=== PATIENT | male | born 2000 | race Caucasian/White ===

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

== ENCOUNTER 2018-01-22 04:09 | Emergency (ER) | payer MEDICAID ==
[2018-01-22] MEDS ORDERED: SODIUM CHLORIDE 0.9% 1,000 ML IV ONE ×3 (04:22→09:06)
--- NOTE | 2018-01-22 04:42 | ED Physician Documentation ---
PD HPI ABD PAIN - Stated complaint Stated Complaint: ABDOMINAL PAIN - Chief complaint Chief Complaint: Abd Pain - History obtained from History obtained from: Patient - History of Present Illness Timing - onset: Today Timing - details: Abrupt onset, Still present Quality: Cramping, Aching, Sharp Location: Epigastric Associated symptoms: Nausea, Vomiting. No: Hematemesis, Diarrhea, Constipation Similar symptoms before: Work up / diagnostics, Treatment Recently seen: Emergency Dept, Admitted - Additional information Additional information: Patient is a 17 year old male with a history of diabetes who is presenting to the emergency department for abdominal pain. Patient states that the pain started just before coming in. Patient denies fevers but states that he also has nausea and vomiting. Patient has been in the emergency department and admitted multiple times with similar complaints. All of the diagnostics have been within normal limits including gastric emptying. At the last discharge it was recommended that a care plan be made for the patient and discontinue the use of opiate pain medication. Review of Systems Constitutional: denies: Fever, Chills Eyes: reports: Reviewed and negative Ears: reports: Reviewed and negative Nose: reports: Reviewed and negative Throat: reports: Reviewed and negative Cardiac: denies: Chest pain / pressure Respiratory: denies: Dyspnea, Cough GI: reports: Abdominal Pain, Nausea, Vomiting. denies: Constipation, Diarrhea : reports: Reviewed and negative Skin: denies: Rash, Lesions Neurologic: reports: Generalized weakness. denies: Focal weakness Immunocompromised: denies: Immunocompromised PD PAST MEDICAL HISTORY - Past Medical History Cardiovascular: None Respiratory: None Neuro: Peripheral neuropathy Endocrine/Autoimmune: Type 1 diabetes GI: Other : None HEENT: None Psych: None Musculoskeletal: None Derm: None - Past Surgical History Past Surgical History: No - Present Medications Home Medications: Ambulatory Orders Medication Instructions Recorded Confirmed Insulin Aspart [Novolog] 0 - 12 unit SUBQ TIDWM 04/15/15 12/29/17 Insulin Glargine,Hum.rec.anlog 40 unit SQ DAILY PM 12/30/17 12/30/17 [Basaglar Kwikpen U-100] Ondansetron Odt [Zofran] 4 mg TL Q6H PRN #20 tablet 01/22/18 - Allergies Allergies/Adverse Reactions: Allergies Allergy/AdvReac Type Severity Reaction Status Date / Time No Known Drug Allergies Allergy Verified 04/28/18 04:16 - Social History Does the pt smoke?: No Smoking Status: Never smoker Does the pt drink ETOH?: Yes Does the pt have substance abuse?: No - Immunizations Immunizations are current?: Yes - POLST Patient has POLST: No POLST Status: Full Code PD ED PE NORMAL - General General: Alert and oriented X 3 - HEENT HEENT: Atraumatic - Neck Neck: Supple, no meningeal sign - Respiratory Respiratory: No respiratory distress - Derm Derm: Normal color - Extremities Extremities: No deformity - Neuro 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 PD ED PE EXPANDED - General General: Alert, In Pain - HEENT HEENT: Dry mucous membranes - Cardiac Cardiac: Tachy - Abdomen Abdomen: Tender to palpation, Epigastric. No: Rebound, Guarding Results - Vitals Vitals: Vital Signs - 24 hr 01/22/18 01/22/18 01/22/18 04:14 05:30 06:22 Temperature 36.5 C Heart Rate 133 H 118 H 127 H Respiratory 17 12 15 Rate Blood Pressure 136/87 H 132/94 H 135/94 H O2 Saturation 100 100 100 01/22/18 01/22/18 08:35 11:34 Temperature 36.6 C Heart Rate 126 H 128 H Respiratory 15 15 Rate Blood Pressure 140/93 H 134/90 H O2 Saturation 100 100 Oxygen O2 Source Room air - Labs Labs: Laboratory Tests 01/22/18 01/22/18 01/22/18 04:20 04:30 04:30 WBC 5.8 RBC 4.91 Hgb 15.1 Hct 43.1 MCV 87.8 MCH 30.7 MCHC 34.9 RDW 12.3 Plt Count 301 MPV 7.9 Neut # 4.6 Lymph # 1.1 L Blanco # 0.1 Eos # 0.0 Baso # 0.0 Absolute Nucleated RBC 0.00 Nucleated RBC % 0.0 VBG pH VBG pCO2 VBG pO2 VBG HCO3 VBG Total CO2 VBG O2 Saturation VBG Base Excess Sodium 139 Potassium 2.8 L Chloride 100 L Carbon Dioxide 21 Anion Gap 18.0 H BUN 14 Creatinine 0.5 L Estimated GFR (MDRD) 214 Glucose 258 H POC Whole Bld Glucose 230 H Lactic Acid Calcium 9.8 Phosphorus 2.8 Magnesium 2.2 Total Bilirubin 0.9 AST 16 ALT 16 Alkaline Phosphatase 87 Total Protein 8.6 H Albumin 4.8 Globulin 3.8 Albumin/Globulin Ratio 1.3 Lipase 17 L Serum Ketones NEGATIVE 01/22/18 01/22/18 04:30 05:35 WBC RBC Hgb Hct MCV MCH MCHC RDW Plt Count MPV Neut # Lymph # Blanco # Eos # Baso # Absolute Nucleated RBC Nucleated RBC % VBG pH 7.357 VBG pCO2 34.2 L VBG pO2 53.6 H VBG HCO3 18.8 L VBG Total CO2 19.8 L VBG O2 Saturation 88.9 H VBG Base Excess -5.8 L Sodium Potassium Chloride Carbon Dioxide Anion Gap BUN Creatinine Estimated GFR (MDRD) Glucose POC Whole Bld Glucose Lactic Acid 2.2 Calcium Phosphorus Magnesium Total Bilirubin AST ALT Alkaline Phosphatase Total Protein Albumin Globulin Albumin/Globulin Ratio Lipase Serum Ketones PD MEDICAL DECISION MAKING - ED course Complexity details: reviewed old records, reviewed results, re-evaluated patient , considered differential, d/w patient ED course: Patient was seen and examined at bedside. IV access was gained and labs were drawn. Patient was started on a fluid bolus as well as zofran. Patient's previous records were reviewed and there was a recommendation of no narcotics for the patient. Patient's renal function was within normal limits. patient was treated with toradol, tylenol and bentyl. Patient was found to have hypokalemia and his potassium was replaced both via IV and oral. Patient's ph was within normal limits and he was not making ketones. Patient reported that he was still in pain and was treated with haldol 5mg. Patient responded well to the haldol and his pain resolved. Patient required no further inpatient work up and was stable for discharge with outpatient follow up. Departure - Departure Disposition: Home, Self Care Clinical Impression: Intractable nausea and vomiting, Abdominal pain Condition: Stable Instructions: Abdominal Pain, ED Diet Vomiting Diarrhea Follow-Up: Justina Patel ARNP [Primary Care Provider] - Within 3 Days Prescriptions: Ondansetron Odt [Zofran] 4 mg TL Q6H PRN #20 tablet PRN Reason: Nausea / Vomiting Comments: Your diagnostics were consistent with mild dehyration but no dka. It is important to keep type control of your blood sugars. You have been prescribed zofran for nausea and make sure you stay well hydrated. You should follow up with your doctor wednesday for re-evaluation. Discharge Date/Time: 01/22/18 11:34
[2018-01-22 04:43] LABS: BASOPHILS % (AUTO) 0.5 %; EOSINOPHILS % (AUTO) 0.1 %; HGB - HEMOGLOBIN 15.1 g/dL (14.0-18.0); LYMPHOCYTES # (AUTO) 1.1 10^3/uL (1.5-3.5); LYMPHOCYTES % (AUTO) 18.6 %; MEAN CORPUSCULAR HEMOGLOBIN 30.7 pg (27.0-31.0); MEAN CORPUSCULAR HGB CONC 34.9 g/dL (32.0-36.0); MEAN CORPUSCULAR VOLUME 87.8 fL (80.0-94.0); MEAN PLATELET VOLUME 7.9 fL (7.4-11.4); MONOCYTES # (AUTO) 0.1 10^3/uL (0.0-1.0); NEUTROPHILS # (AUTO) 4.6 10^3/uL (1.5-6.6); NEUTROPHILS % (AUTO) 78.8 %; PLT - PLATELET COUNT 301 10^3/uL (130-450); RED BLOOD COUNT 4.91 10^6/uL (4.70-6.10); RED CELL DISTRIBUTION WIDTH 12.3 % (12.0-15.0); WHITE BLOOD COUNT 5.8 x10^3/uL (4.8-10.8)
[2018-01-22] MEDS ORDERED: ONDANSETRON 4 MG/2 ML VIAL IVP STA (04:50)
[2018-01-22] MEDS ORDERED: ACETAMINOPHEN 500 MG TABLET PO STA (04:51)
[2018-01-22 04:52] LABS: KETONES, SERUM (ACETEST) NEGATIVE (NEGATIVE)
[2018-01-22 04:53] LABS: ALBUMIN 4.8 g/dL (3.2-5.5); ALBUMIN/GLOBULIN RATIO 1.3 (1.0-2.2); ALKALINE PHOSPHATASE 87 IU/L (42-121); ALT ALANINE AMINOTRANSFERASE 16 IU/L (10-60); AST ASPARTATE AMINOTRANSFERASE 16 IU/L (10-42); BILIRUBIN,TOTAL 0.9 mg/dL (0.2-1.0); BUN - BLOOD UREA NITROGEN 14 mg/dL (6-20); CALCIUM 9.8 mg/dL (8.5-10.3); CARBON DIOXIDE - CO2 21 mmol/L (21-32); CHLORIDE 100 mmol/L (101-111); CREATININE 0.5 mg/dL (0.6-1.2); GFR - MDRD 214 (>89); GLUCOSE 258 mg/dL (70-100); LIPASE 17 U/L (22-51); MAGNESIUM 2.2 mg/dL (1.7-2.8); PHOSPHORUS 2.8 mg/dL (2.5-4.6); SODIUM 139 mmol/L (135-145); TOTAL PROTEIN 8.6 g/dL (6.7-8.2)
[2018-01-22] MEDS ORDERED: DICYCLOMINE 10 MG CAPSULE PO STA (04:56)
[2018-01-22] MEDS ORDERED: PANTOPRAZOLE 40 MG VIAL IVP STA (04:56)
[2018-01-22] MEDS ORDERED: KETOROLAC 60 MG/2 ML VIAL IVP STA (04:56)
[2018-01-22] MEDS ORDERED: POTASSIUM CHLOR 10 MEQ/100 ML 10 MEQ/100 ML BAG IV ONE (04:56)
[2018-01-22] MEDS ORDERED: ACETAMINOPHEN 325 MG TABLET PO STA (04:56)
[2018-01-22] MEDS ORDERED: LIDOCAINE VISCOUS 2% 15 ML UDC MM STA ×2 (04:56→09:08)
[2018-01-22] MEDS ORDERED: POTASSIUM CHLORIDE 20 MEQ TABLET PO STA (04:59)
[2018-01-22 05:47] LABS: VBG BASE EXCESS -5.8 mmol/L (-2 - +2); VBG PCO2 34.2 mmHg (41-51); VBG PH 7.357 (7.31-7.41); VBG PO2 53.6 mmHg (25-47); VBG TOTAL CO2 19.8 mmol/L (24-29)
[2018-01-22] MEDS ORDERED: HALOPERIDOL 5 MG/ML VIAL IVP ONE (06:01)
[2018-01-22] MEDS ORDERED: PROCHLORPERAZINE 10 MG/2 ML VIAL IVP STA (09:08)
[2018-01-22] MEDS ORDERED: diphenhydrAMINE INJ 50 MG/ML VIAL IVP STA (09:08)
[2018-01-22] MEDS ORDERED: MAG HYDROX/AL HYDROX/SIMETH 30 ML UDC PO STA (09:08)
[2018-01-22] MEDS ORDERED: ACETAMINOPHEN 1,000 MG/100 ML 100 ML IV STA (09:09)
--- NOTE | 2018-01-22 11:25 | ED Physician Documentation ---
ED Addendum - Addendum Addendum: 01/22/18 11:24 He slept for a couple of hours after sign out time on change of shift. Upon awakening he said he is still having some stomach pain and had increased nausea again. There is no vomiting. He is given doses of medication and getting antiemetic and GI cocktail. His symptoms were lessened. This point will look at trying to discharge him home with prescriptions for antiemetics. He still remains slightly tachycardic but is otherwise feeling better. He had received several antiemetics here in could potentially be having a fast heart rate is a side effect of them separately from his presenting complaint.
[2018-01-22 11:36] VITALS: BP 134/90
== END 2018-01-22 11:34 | disposition home or self-care (01) ==
LOC: ED 04:09
DX: E86.0 Dehydration (principal); R10.13 Epigastric pain; R11.2 Nausea with vomiting, unspecified; E10.42 Type 1 diabetes mellitus with diabetic polyneuropathy; Z79.4 Long term (current) use of insulin
CPT/HCPCS: 36415; 80053; 82009; 82803; 83605; 83690; 83735; 84100; 85025; 96361; 96365; 96367; 96375; 99283; 99284; A9270; J0131; J1200

== ENCOUNTER 2018-01-23 07:51 | Emergency (ER) | payer MEDICAID ==
--- NOTE | 2018-01-23 07:56 | ED Physician Documentation ---
PD HPI NVD - Stated complaint Stated Complaint: N/V - History obtained from History obtained from: Patient - History of Present Illness Timing - onset: How many days ago (few) Timing - duration: Days (few days of symptoms, improved some yesterday with IV fluids and meds in ED and discharged, but not improved consistently.) Timing - details: Gradual onset, Waxing and waning Associated symptoms: Abdominal pain (upper abdomen, steady pain, worse with eating.), Loss of appetite. No: Fever, Chest pain, Hematemesis, Melena, Vaginal bleeding Contributing factors: Diabetes (he says he took his insulin this morning and last night, but did not check sugars, so doesn't know the levels.). No: Sick contact, Bad food Improved by: No: Eating, Vomiting Worsened by: Eating Similar symptoms before: No diagnosis (gastritis, hyperemesis. Had normal gastric emptying study and commonly normal labs/imaging.) Recently seen: Emergency Dept (just yesterday with similar symptoms, given IV fluids and meds with improvement enough for discharge, but then worse again overnight. Upper abd pains and repetitive vomiting.) Review of Systems Constitutional: denies: Fever, Chills, Myalgias Nose: denies: Rhinorrhea / runny nose, Congestion Throat: denies: Sore throat Cardiac: denies: Chest pain / pressure Respiratory: denies: Cough GI: reports: Abdominal Pain (upper), Nausea, Vomiting. denies: Diarrhea, Hematemesis, Bloody / black stool : denies: Dysuria, Frequency Skin: denies: Rash, Lesions PD PAST MEDICAL HISTORY - Past Medical History Cardiovascular: None Respiratory: None Neuro: Peripheral neuropathy Endocrine/Autoimmune: Type 1 diabetes GI: Other : None HEENT: None Psych: None Musculoskeletal: None Derm: None - Past Surgical History Past Surgical History: No - Present Medications Home Medications: Ambulatory Orders Medication Instructions Recorded Confirmed Insulin Aspart [Novolog] 0 - 12 unit SUBQ TIDWM 04/15/15 12/29/17 Insulin Glargine,Hum.rec.anlog 40 unit SQ DAILY PM 12/30/17 12/30/17 [Basaglar Kwikpen U-100] Ondansetron Odt [Zofran] 4 mg TL Q6H PRN #20 tablet 01/22/18 Dicyclomine [Bentyl] 20 mg PO QID PRN #20 capsule 01/23/18 Ondansetron Odt [Zofran] 4 mg TL Q6H PRN #15 tablet 01/23/18 Promethazine Supp [Phenergan Supp] 25 mg [place] Q6H PRN #6 supp 01/23/18 raNITIdine [Zantac] 150 mg PO BID #20 tablet 01/23/18 - Allergies Allergies/Adverse Reactions: Allergies Allergy/AdvReac Type Severity Reaction Status Date / Time No Known Drug Allergies Allergy Verified 01/22/18 04:16 - Social History Does the pt smoke?: No Smoking Status: Never smoker Does the pt drink ETOH?: Yes Does the pt have substance abuse?: No - Immunizations Immunizations are current?: Yes - POLST Patient has POLST: No POLST Status: Full Code PD ED PE NORMAL - General General: Alert and oriented X 3. No: Well developed/nourished (thin and frail) - HEENT HEENT: Ears normal, Pharynx benign. No: Moist mucous membranes - Neck Neck: Supple, no meningeal sign, No adenopathy - Cardiac Cardiac: RRR (tachycardic), No murmur - Respiratory Respiratory: Clear bilaterally - Abdomen Abdomen: Normal bowel sounds, Soft, Non distended, No organomegaly, Other ( tender upper abd with some guarding; no percussion nor rebound tenderness. ) - Male Male : Deferred - Rectal Rectal: Deferred - Back Back: No CVA TTP - Derm Derm: Normal color, Warm and dry - Extremities Extremities: No deformity, No tenderness to palpate, Normal ROM s pain, No edema , No calf tenderness / cord - Neuro 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, No motor deficit, Normal speech Results - Vitals Vitals: Vital Signs - 24 hr 01/23/18 01/23/18 07:58 12:15 Temperature 36.6 C Heart Rate 113 H 92 Respiratory 18 15 Rate Blood Pressure 105/75 108/73 O2 Saturation 100 100 Oxygen O2 Source Room air - Labs Labs: Laboratory Tests 01/23/18 01/23/18 01/23/18 08:01 08:10 08:10 WBC 6.4 RBC 4.23 L Hgb 13.0 L Hct 37.7 L MCV 89.0 MCH 30.8 MCHC 34.6 RDW 12.6 Plt Count 234 MPV 7.7 Neut # 5.4 Lymph # 0.8 L Oliver # 0.2 Eos # 0.0 Baso # 0.0 Absolute Nucleated RBC 0.00 Nucleated RBC % 0.0 VBG pH VBG pCO2 VBG pO2 VBG HCO3 VBG Total CO2 VBG O2 Saturation VBG Base Excess Sodium 137 Potassium 3.6 Chloride 108 Carbon Dioxide 20 L Anion Gap 9.0 BUN 17 Creatinine 0.5 L Estimated GFR (MDRD) 214 Glucose 147 H POC Whole Bld Glucose 137 H Calcium 8.6 Magnesium 1.9 Total Bilirubin 0.8 AST 18 ALT 13 Alkaline Phosphatase 64 Total Protein 6.4 L Albumin 3.5 Globulin 2.9 Albumin/Globulin Ratio 1.2 Lipase 15 L Serum Ketones SMALL H 01/23/18 01/23/18 08:30 11:51 WBC RBC Hgb Hct MCV MCH MCHC RDW Plt Count MPV Neut # Lymph # [place] # Eos # Baso # Absolute Nucleated RBC Nucleated RBC % VBG pH 7.345 VBG pCO2 37.6 L VBG pO2 41.6 VBG HCO3 20.1 L VBG Total CO2 21.2 L VBG O2 Saturation 82.4 H VBG Base Excess -5.0 L Sodium Potassium Chloride Carbon Dioxide Anion Gap BUN Creatinine Estimated GFR (MDRD) Glucose POC Whole Bld Glucose 93 Calcium Magnesium Total Bilirubin AST ALT Alkaline Phosphatase Total Protein Albumin Globulin Albumin/Globulin Ratio Lipase Serum Ketones PD MEDICAL DECISION MAKING - ED course Complexity details: reviewed old records, reviewed results, re-evaluated patient (improved enough after a few meds and fluids to feel able to head home. Taking PO here of water and crackers prior to leaving. ), considered differential, d/w patient Departure - Departure Disposition: 01 Home, Self Care Clinical Impression: Dehydration Abdominal pain Qualifiers: Abdominal location: upper abdomen, unspecified Qualified Code(s): R10.10 - Upper abdominal pain, unspecified Intractable nausea and vomiting Qualifiers: Vomiting type: unspecified Qualified Code(s): R11.2 - Nausea with vomiting, unspecified Gastritis Qualifiers: Gastritis type: unspecified gastritis Chronicity: chronic Gastritis bleeding: without bleeding Qualified Code(s): K29.50 - Unspecified chronic gastritis without bleeding Condition: Stable Record reviewed to determine appropriate education?: Yes Instructions: ED Nausea Vomiting Follow-Up: Justina Patel ARNP [Primary Care Provider] - Prescriptions: Dicyclomine [Bentyl] 20 mg PO QID PRN #20 capsule PRN Reason: Spasms Ondansetron Odt [Zofran] 4 mg TL Q6H PRN #15 tablet PRN Reason: Nausea / Vomiting Promethazine Supp [Phenergan Supp] 25 mg [place] Q6H PRN #6 supp PRN Reason: Nausea / Vomiting raNITIdine [Zantac] 150 mg PO BID #20 tablet Comments: Frequent fluids and bland food at home. Continue usual medications including the insulins. Start ranitidine daily for the next few weeks. Dicyclomine every 6 hours as needed for abdominal pain. Ondansetron if needed for nausea. If you are unable to keep medications down, you could use promethazine suppository for nausea and vomiting. Follow-up with your primary care this coming week, call for an appointment. Discharge Date/Time: 01/23/18 13:15
[2018-01-23] MEDS ORDERED: SODIUM CHLORIDE 0.9% 1,000 ML IV ONE ×3 (08:09→10:15)
[2018-01-23] MEDS ORDERED: ONDANSETRON 4 MG/2 ML VIAL IVP STA (08:09)
[2018-01-23] MEDS ORDERED: FAMOTIDINE 20 MG/2 ML VIAL IVP STA (08:09)
[2018-01-23] MEDS ORDERED: ACETAMINOPHEN 1,000 MG/100 ML 100 ML IV STA (08:10)
[2018-01-23] MEDS ORDERED: HYOSCYAMINE SL 0.125 MG TABLET SL STA (08:10)
[2018-01-23 08:28] LABS: BASOPHILS % (AUTO) 0.4 %; LYMPHOCYTES # (AUTO) 0.8 10^3/uL (1.5-3.5); LYMPHOCYTES % (AUTO) 12.4 %; MEAN CORPUSCULAR HEMOGLOBIN 30.8 pg (27.0-31.0); MEAN CORPUSCULAR HGB CONC 34.6 g/dL (32.0-36.0); MEAN PLATELET VOLUME 7.7 fL (7.4-11.4); MONOCYTES # (AUTO) 0.2 10^3/uL (0.0-1.0); MONOCYTES % (AUTO) 2.7 %; NEUTROPHILS # (AUTO) 5.4 10^3/uL (1.5-6.6); NEUTROPHILS % (AUTO) 84.5 %; PLT - PLATELET COUNT 234 10^3/uL (130-450); RED BLOOD COUNT 4.23 10^6/uL (4.70-6.10); RED CELL DISTRIBUTION WIDTH 12.6 % (12.0-15.0); WHITE BLOOD COUNT 6.4 x10^3/uL (4.8-10.8)
[2018-01-23 08:34] LABS: KETONES, SERUM (ACETEST) SMALL (NEGATIVE)
[2018-01-23 08:40] LABS: ALBUMIN 3.5 g/dL (3.2-5.5); ALBUMIN/GLOBULIN RATIO 1.2 (1.0-2.2); ALKALINE PHOSPHATASE 64 IU/L (42-121); ALT ALANINE AMINOTRANSFERASE 13 IU/L (10-60); AST ASPARTATE AMINOTRANSFERASE 18 IU/L (10-42); BILIRUBIN,TOTAL 0.8 mg/dL (0.2-1.0); BUN - BLOOD UREA NITROGEN 17 mg/dL (6-20); CALCIUM 8.6 mg/dL (8.5-10.3); CARBON DIOXIDE - CO2 20 mmol/L (21-32); CHLORIDE 108 mmol/L (101-111); CREATININE 0.5 mg/dL (0.6-1.2); GFR - MDRD 214 (>89); GLUCOSE 147 mg/dL (70-100); LIPASE 15 U/L (22-51); MAGNESIUM 1.9 mg/dL (1.7-2.8); SODIUM 137 mmol/L (135-145); TOTAL PROTEIN 6.4 g/dL (6.7-8.2)
[2018-01-23 09:06] LABS: VBG PCO2 37.6 mmHg (41-51); VBG PH 7.345 (7.31-7.41); VBG PO2 41.6 mmHg (25-47)
[2018-01-23 09:07] LABS: VBG TOTAL CO2 21.2 mmol/L (24-29)
[2018-01-23] MEDS ORDERED: KETAMINE 500 MG/10 ML VIAL IVP STA (10:14)
[2018-01-23] MEDS ORDERED: PROCHLORPERAZINE 10 MG/2 ML VIAL IVP STA (10:14)
[2018-01-23] MEDS ORDERED: KETOROLAC 60 MG/2 ML VIAL IVP STA (10:15)
[2018-01-23 12:16] VITALS: BP 108/73
== END 2018-01-23 13:15 | disposition home or self-care (01) ==
LOC: ED 07:51
DX: E86.0 Dehydration (principal); K29.50 Unspecified chronic gastritis without bleeding; E10.42 Type 1 diabetes mellitus with diabetic polyneuropathy; Z79.4 Long term (current) use of insulin
CPT/HCPCS: 36415; 80053; 82009; 82803; 83690; 83735; 85025; 96361; 96365; 96366; 96375; 99283; 99284; A9270; J0131

== ENCOUNTER 2018-01-24 07:10 | Emergency (ER) | payer MEDICAID ==
[2018-01-24] MEDS ORDERED: KETOROLAC 60 MG/2 ML VIAL IVP STA (07:38)
[2018-01-24] MEDS ORDERED: SODIUM CHLORIDE 0.9% 1,000 ML IV ONE (07:38)
[2018-01-24] MEDS ORDERED: ACETAMINOPHEN 1,000 MG/100 ML 100 ML IV STA (07:38)
[2018-01-24] MEDS ORDERED: FAMOTIDINE 20 MG/50 ML 50 ML IV ONE (07:38)
[2018-01-24] MEDS ORDERED: HALOPERIDOL 5 MG/ML VIAL IVP STA (07:38)
--- NOTE | 2018-01-24 07:48 | ED Physician Documentation ---
History of Present Illness - Stated complaint Stated Complaint: ABD PX/VOMITING - Chief complaint Chief Complaint: Abd Pain - Additonal information Additional information: hx from pt and EMR 17 male IDDM with gastroparesis 2/2 IDDM well known to our ER for freq bouts of intractable NV at least 5 admits for same in last 6 months this is his 4th visit for same in 3 days NV and diffuse abd pain typical of his prior episodes denies bad food denies travel denies sick contacts denies recent ab no diarrhea is urinating FSBS upon arrival 100s taking zofran at home s relief had a CT for similar sx approx a month ago and no acute process found except possible pyelo per rad but clean urine Review of Systems Constitutional: denies: Fever Cardiac: denies: Chest pain / pressure Respiratory: denies: Dyspnea, Cough GI: reports: Abdominal Pain, Nausea, Vomiting. denies: Diarrhea : denies: Dysuria Musculoskeletal: denies: Neck pain, Back pain Endocrine: denies: Easy bruising / bleeding Immunocompromised: denies: Immunocompromised PD PAST MEDICAL HISTORY - Past Medical History Cardiovascular: None Respiratory: None Neuro: Peripheral neuropathy Endocrine/Autoimmune: Type 1 diabetes GI: Other : None HEENT: None Psych: None Musculoskeletal: None Derm: None - Past Surgical History Past Surgical History: No - Present Medications Home Medications: Ambulatory Orders Medication Instructions Recorded Confirmed Insulin Aspart [Novolog] 0 - 12 unit SUBQ TIDWM 04/15/15 12/29/17 Insulin Glargine,Hum.rec.anlog 40 unit SQ DAILY PM 12/30/17 12/30/17 [Basaglar Kwikpen U-100] Ondansetron Odt [Zofran] 4 mg TL Q6H PRN #20 tablet 01/22/18 Dicyclomine [Bentyl] 20 mg PO QID PRN #20 capsule 01/23/18 Ondansetron Odt [Zofran] 4 mg TL Q6H PRN #15 tablet 01/23/18 Promethazine Supp [Phenergan Supp] 25 mg SC Q6H PRN #6 supp 01/23/18 raNITIdine [Zantac] 150 mg PO BID #20 tablet 01/23/18 Promethazine Supp [Phenergan Supp] 25 mg SC Q6H PRN #10 supp 01/24/18 - Allergies Allergies/Adverse Reactions: Allergies Allergy/AdvReac Type Severity Reaction Status Date / Time No Known Drug Allergies Allergy Verified 01/22/18 04:16 - Social History Does the pt smoke?: No Smoking Status: Never smoker Does the pt drink ETOH?: Yes Does the pt have substance abuse?: No - Immunizations Immunizations are current?: Yes - POLST Patient has POLST: No POLST Status: Full Code PD ED PE NORMAL - Vitals Vital signs reviewed: Yes - General General: Alert and oriented X 3 - HEENT HEENT: No: Moist mucous membranes (little dry) - Neck Neck: Supple, no meningeal sign - Cardiac Cardiac: RRR (reg but tachy) - Abdomen Abdomen: Other (+ BS, diffuse TTP with vol guarding, non focal) - Derm Derm: Normal color - Neuro 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 Results - Vitals Vitals: Vital Signs - 24 hr 01/24/18 01/24/18 01/24/18 07:13 09:05 10:15 Temperature 36.6 C Heart Rate 96 96 100 Respiratory 17 16 24 Rate Blood Pressure 133/90 H 129/90 H 132/90 H O2 Saturation 100 100 100 01/24/18 11:37 Temperature Heart Rate 113 H Respiratory 16 Rate Blood Pressure 128/91 H O2 Saturation 100 Oxygen O2 Source Room air - Tele (time rhythm occurred) 0840 Telemetry / rhythm strip: Other (no prolonged QT) - Labs Labs: Laboratory Tests 01/24/18 01/24/18 01/24/18 07:18 07:42 07:42 WBC 4.0 L RBC 4.67 L Hgb 14.3 Hct 41.4 L MCV 88.7 MCH 30.7 MCHC 34.6 RDW 12.4 Plt Count 252 MPV 7.6 Neut # 2.4 Lymph # 1.3 L [place] # 0.2 Eos # 0.0 Baso # 0.0 Absolute Nucleated RBC 0.00 Nucleated RBC % 0.0 Sodium 136 Potassium 2.7 L Chloride 101 Carbon Dioxide 22 Anion Gap 13.0 BUN 9 Creatinine 0.3 L Estimated GFR (MDRD) 386 Glucose 150 H POC Whole Bld Glucose 146 H Calcium 8.8 Total Bilirubin 0.6 AST 19 ALT 13 Alkaline Phosphatase 68 Total Protein 7.1 Albumin 3.9 Globulin 3.2 Albumin/Globulin Ratio 1.2 Lipase 19 L PD MEDICAL DECISION MAKING - ED course ED course: pt starts off requesting "tat medication that works really fast and makes me sleepy - starts with a d or the one that starts with a m" I explained that I don't think morphine or dilaudid would be appropriate for this type of chronic recurrent problem but that I would address his pain and vomiting with other meds gave toradol orfirmev pepcid and haldol which has worked well for pt sometimes in the past (furthermore there is a critical shortage of morphine and dilaudid right now) after toradol ofirmev haldol and pepcid pain is down to 5/10 and no further vomiting he declines to try PO fluids but has received IVF is not in DKA K repleted IV and PO (which pt declined to take 2/2 nausea) feel reasonable to dc home pt declined to go - states still having pain - so gave single PO oxycodone ( which he was able to tolerate) now pain is better and will dc d/w pt pt seemed frustrated at being dced, HR noted - considered but do not feel pt is septic or in need of further IVF or work up Departure - Departure Disposition: Home, Self Care Clinical Impression: Diabetic gastroparesis Condition: Good Instructions: ED Abdominal Pain Unkn Cause Male Follow-Up: Justina Patel ARNP [Primary Care Provider] - Prescriptions: Promethazine Supp [Phenergan Supp] 25 mg SC Q6H PRN #10 supp PRN Reason: vomiting Comments: Your labs were fine except for the low potassium which we replaced You were rehydrated with IV fluids You had a CT scan recently for the same symptoms so no further imaging is needed today Your symptoms are improved though not resolved and you are not in DKA so admission to the hospital is not needed today Since the zofran at home wasn't helping I have prescribed rectal phenergan suppositories Also you received haldol in the ER and should not take zofran for 48 hr after getting that medication Rest and drink plenty of fluids Try snacking on small amounts of bland food like toast and bananas Marijuana use can cause very similar sx to diabetic gastroparesis so if you use marijuana I recommend you stop. Follow up with your PMD for a recheck this week Forms: Activity restrictions Discharge Date/Time: 01/24/18 12:03
[2018-01-24 07:51] LABS: BASOPHILS % (AUTO) 0.8 %; EOSINOPHILS % (AUTO) 0.7 %; HGB - HEMOGLOBIN 14.3 g/dL (14.0-18.0); LYMPHOCYTES # (AUTO) 1.3 10^3/uL (1.5-3.5); LYMPHOCYTES % (AUTO) 32.6 %; MEAN CORPUSCULAR HEMOGLOBIN 30.7 pg (27.0-31.0); MEAN CORPUSCULAR HGB CONC 34.6 g/dL (32.0-36.0); MEAN CORPUSCULAR VOLUME 88.7 fL (80.0-94.0); MEAN PLATELET VOLUME 7.6 fL (7.4-11.4); MONOCYTES # (AUTO) 0.2 10^3/uL (0.0-1.0); NEUTROPHILS # (AUTO) 2.4 10^3/uL (1.5-6.6); NEUTROPHILS % (AUTO) 60.9 %; PLT - PLATELET COUNT 252 10^3/uL (130-450); RED BLOOD COUNT 4.67 10^6/uL (4.70-6.10); RED CELL DISTRIBUTION WIDTH 12.4 % (12.0-15.0)
[2018-01-24 08:10] LABS: ALBUMIN 3.9 g/dL (3.2-5.5); ALBUMIN/GLOBULIN RATIO 1.2 (1.0-2.2); BILIRUBIN,TOTAL 0.6 mg/dL (0.2-1.0); CALCIUM 8.8 mg/dL (8.5-10.3); CREATININE 0.3 mg/dL (0.6-1.2); TOTAL PROTEIN 7.1 g/dL (6.7-8.2)
[2018-01-24] MEDS ORDERED: POTASSIUM CHLORIDE 20 MEQ TABLET PO STA (08:30)
[2018-01-24] MEDS ORDERED: MAG HYDROX/AL HYDROX/SIMETH 30 ML UDC PO STA (09:46)
[2018-01-24] MEDS ORDERED: LIDOCAINE VISCOUS 2% 15 ML UDC MM STA (09:46)
[2018-01-24] MEDS ORDERED: oxyCODONE 5 MG TABLET PO STA (10:09)
[2018-01-24] MEDS ORDERED: PROMETHAZINE 25 MG TABLET PO STA (10:43)
[2018-01-24 11:38] VITALS: BP 128/91
== END 2018-01-24 12:03 | disposition home or self-care (01) ==
LOC: ED 07:10
DX: E10.43 Type 1 diabetes mellitus with diabetic autonomic (poly)neuropathy (principal); K31.84 Gastroparesis; E10.42 Type 1 diabetes mellitus with diabetic polyneuropathy
CPT/HCPCS: 36415; 80053; 83690; 85025; 96365; 96367; 96375; 99284; A9270; J0131; Q0169

== ENCOUNTER 2018-01-26 20:56 | Observation (INO) | payer MEDICAID ==
[2018-01-26] MEDS ORDERED: SODIUM CHLORIDE 0.9% 1,000 ML IV ONE ×2 (21:06)
[2018-01-26] MEDS ORDERED: ONDANSETRON 4 MG/2 ML VIAL IVP STA (21:21)
[2018-01-26] MEDS ORDERED: MORPHINE 2 MG/ML SYRINGE IVP STA (21:27)
--- NOTE | 2018-01-26 21:29 | ED Physician Documentation ---
History of Present Illness - Stated complaint Stated Complaint: N/V/ABD PX - Chief complaint Chief Complaint: Abd Pain - History obtained from History obtained from: Patient, Family - History of Present Illness Timing: How many weeks ago (1) Pain level max: 10 Pain level now: 10 Improved by: nothing Worsened by: eating, drinking - Additonal information Additional information: Patient is a 17-year-old male, insulin-dependent diabetic who has had vomiting abdominal pain for the past week. This is his fourth emergency department visit for same. No fevers. States his blood sugars have been climbing higher today. Has been taking Zofran at home without relief. Denies any drug use. Review of Systems Ten Systems: 10 systems reviewed and negative Constitutional: denies: Fever, Chills Ears: denies: Ear pain Nose: denies: Rhinorrhea / runny nose, Congestion Throat: denies: Sore throat Cardiac: denies: Chest pain / pressure Respiratory: denies: Cough GI: reports: Abdominal Pain, Nausea, Vomiting. denies: Diarrhea Skin: denies: Rash Musculoskeletal: denies: Neck pain, Back pain Neurologic: denies: Headache PD PAST MEDICAL HISTORY - Past Medical History Cardiovascular: None Respiratory: None Neuro: Peripheral neuropathy Endocrine/Autoimmune: Type 1 diabetes GI: Other : None HEENT: None Psych: None Musculoskeletal: None Derm: None - Past Surgical History Past Surgical History: No - Present Medications Home Medications: Ambulatory Orders Medication Instructions Recorded Confirmed Insulin Aspart [Novolog] 0 - 12 unit SUBQ TIDWM 04/15/15 12/29/17 Insulin Glargine,Hum.rec.anlog 40 unit SQ DAILY PM 12/30/17 12/30/17 [Basaglar Kwikpen U-100] Ondansetron Odt [Zofran] 4 mg TL Q6H PRN #20 tablet 01/22/18 Dicyclomine [Bentyl] 20 mg PO QID PRN #20 capsule 01/23/18 Ondansetron Odt [Zofran] 4 mg TL Q6H PRN #15 tablet 01/23/18 Promethazine Supp [Phenergan Supp] 25 mg [place] Q6H PRN #6 supp 01/23/18 raNITIdine [Zantac] 150 mg PO BID #20 tablet 01/23/18 Promethazine Supp [Phenergan Supp] 25 mg [place] Q6H PRN #10 supp 01/24/18 - Allergies Allergies/Adverse Reactions: Allergies Allergy/AdvReac Type Severity Reaction Status Date / Time No Known Drug Allergies Allergy Verified 01/26/18 21:05 - Social History Does the pt smoke?: No Smoking Status: Never smoker Does the pt drink ETOH?: Yes Does the pt have substance abuse?: No - Immunizations Immunizations are current?: Yes - POLST Patient has POLST: No POLST Status: Full Code PD ED PE NORMAL - Vitals Vital signs reviewed: Yes - General General: Alert and oriented X 3, No acute distress - HEENT HEENT: Moist mucous membranes - Neck Neck: Supple, no meningeal sign - Cardiac Cardiac: RRR - Respiratory Respiratory: No respiratory distress, Clear bilaterally - Abdomen Abdomen: Soft, Other (TTP epigastric without peritoneal signs.) - Derm Derm: Warm and dry - Neuro 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 - Psych Psych: Normal mood, Normal affect Results - Vitals Vitals: Vital Signs - 24 hr 01/26/18 01/26/18 01/27/18 21:02 22:16 00:07 Temperature 36.3 C L Heart Rate 107 H 99 97 Respiratory 18 18 16 Rate Blood Pressure 138/103 H 142/105 H 138/102 H O2 Saturation 97 99 100 Oxygen O2 Source Room air - Labs Labs: Laboratory Tests 01/26/18 01/26/18 01/26/18 21:11 21:20 21:20 WBC RBC Hgb Hct MCV MCH MCHC RDW Plt Count MPV Neut # Lymph # [place] # Eos # Baso # Absolute Nucleated RBC Nucleated RBC % VBG pH 7.440 H VBG pCO2 38.0 L VBG pO2 66.2 H VBG HCO3 25.2 VBG Total CO2 26.4 VBG O2 Saturation 93.2 H VBG Base Excess 1.3 Sodium 135 Potassium 3.4 L Chloride 97 L Carbon Dioxide 26 Anion Gap 12.0 BUN 10 Creatinine 0.5 L Estimated GFR (MDRD) 214 Glucose 402 H POC Whole Bld Glucose 349 H Calcium 9.7 Phosphorus 3.4 Magnesium 2.0 Total Bilirubin 0.5 AST 15 ALT 14 Alkaline Phosphatase 75 Total Protein 7.1 Albumin 4.1 Globulin 3.0 Albumin/Globulin Ratio 1.4 Lipase 22 Serum Ketones NEGATIVE 01/26/18 01/27/18 21:33 00:03 WBC 3.7 L RBC 4.70 Hgb 14.0 Hct 41.0 L MCV 87.3 MCH 29.7 MCHC 34.1 RDW 12.5 Plt Count 277 MPV 7.5 Neut # 2.6 Lymph # 0.9 L [place] # 0.2 Eos # 0.0 Baso # 0.0 Absolute Nucleated RBC 0.00 Nucleated RBC % 0.1 VBG pH VBG pCO2 VBG pO2 VBG HCO3 VBG Total CO2 VBG O2 Saturation VBG Base Excess Sodium Potassium Chloride Carbon Dioxide Anion Gap BUN Creatinine Estimated GFR (MDRD) Glucose POC Whole Bld Glucose 124 H Calcium Phosphorus Magnesium Total Bilirubin AST ALT Alkaline Phosphatase Total Protein Albumin Globulin Albumin/Globulin Ratio Lipase Serum Ketones PD MEDICAL DECISION MAKING - ED course Complexity details: reviewed old records, reviewed results, re-evaluated patient , considered differential, d/w patient, d/w family, d/w gift consultant ED course: Patient is a 17-year-old male who presents to the emergency department for continued abdominal pain and vomiting. He is diabetic and blood sugar has now increased over 400. No evidence of DKA on laboratory testing. Given IV fluids , Zofran, Phenergan and still is having vomiting. Therefore we will place the patient in observation for rehydration, monitoring of his blood sugars and continued care. Discussed the case with Dr. Schmidt, hospitalist who accepts. This document was made in part using voice recognition software. While efforts are made to proofread this document, sound alike and grammatical errors may occur. Departure - Departure Disposition: ED Place in Observation Clinical Impression: Dehydration Diabetes type 1, uncontrolled Qualifiers: Diabetes mellitus complication status: with hyperglycemia Qualified Code(s): E10.65 - Type 1 diabetes mellitus with hyperglycemia Intractable nausea and vomiting Qualifiers: Vomiting type: unspecified Qualified Code(s): R11.2 - Nausea with vomiting, unspecified Abdominal pain Qualifiers: Abdominal location: generalized Qualified Code(s): R10.84 - Generalized abdominal pain Condition: Stable Discharge Date/Time: 01/27/18 01:44
[2018-01-26 21:36] LABS: VBG BASE EXCESS 1.3 mmol/L (-2 - +2); VBG PH 7.44 (7.31-7.41); VBG PO2 66.2 mmHg (25-47); VBG TOTAL CO2 26.4 mmol/L (24-29)
[2018-01-26 21:37] LABS: KETONES, SERUM (ACETEST) NEGATIVE (NEGATIVE)
[2018-01-26 21:38] LABS: BASOPHILS % (AUTO) 1.3 %; EOSINOPHILS % (AUTO) 0.6 %; LYMPHOCYTES # (AUTO) 0.9 10^3/uL (1.5-3.5); LYMPHOCYTES % (AUTO) 24.5 %; MEAN CORPUSCULAR HEMOGLOBIN 29.7 pg (27.0-31.0); MEAN CORPUSCULAR HGB CONC 34.1 g/dL (32.0-36.0); MEAN CORPUSCULAR VOLUME 87.3 fL (80.0-94.0); MEAN PLATELET VOLUME 7.5 fL (7.4-11.4); MONOCYTES # (AUTO) 0.2 10^3/uL (0.0-1.0); MONOCYTES % (AUTO) 4.3 %; NEUTROPHILS # (AUTO) 2.6 10^3/uL (1.5-6.6); NEUTROPHILS % (AUTO) 69.3 %; PLT - PLATELET COUNT 277 10^3/uL (130-450); RED CELL DISTRIBUTION WIDTH 12.5 % (12.0-15.0); WHITE BLOOD COUNT 3.7 x10^3/uL (4.8-10.8)
[2018-01-26 21:45] LABS: ALBUMIN 4.1 g/dL (3.2-5.5); ALBUMIN/GLOBULIN RATIO 1.4 (1.0-2.2); ALKALINE PHOSPHATASE 75 IU/L (42-121); ALT ALANINE AMINOTRANSFERASE 14 IU/L (10-60); AST ASPARTATE AMINOTRANSFERASE 15 IU/L (10-42); BILIRUBIN,TOTAL 0.5 mg/dL (0.2-1.0); BUN - BLOOD UREA NITROGEN 10 mg/dL (6-20); CALCIUM 9.7 mg/dL (8.5-10.3); CARBON DIOXIDE - CO2 26 mmol/L (21-32); CHLORIDE 97 mmol/L (101-111); CREATININE 0.5 mg/dL (0.6-1.2); GFR - MDRD 214 (>89); GLUCOSE 402 mg/dL (70-100); LIPASE 22 U/L (22-51); PHOSPHORUS 3.4 mg/dL (2.5-4.6); SODIUM 135 mmol/L (135-145); TOTAL PROTEIN 7.1 g/dL (6.7-8.2)
[2018-01-26] MEDS ORDERED: INSULIN REGULAR HUMAN 100 UNIT/1 ML 10 ML MDV IVP STA (23:02)
[2018-01-26] MEDS ORDERED: MAG HYDROX/AL HYDROX/SIMETH 30 ML UDC PO STA (23:17)
[2018-01-26] MEDS ORDERED: FAMOTIDINE 20 MG TABLET PO STA (23:17)
[2018-01-26] MEDS ORDERED: SUCRALFATE 1 GM/10 ML UDC PO STA (23:17)
[2018-01-26] MEDS ORDERED: LIDOCAINE VISCOUS 2% 15 ML UDC MM STA (23:17)
[2018-01-26] MEDS ORDERED: PHENobarb/HYOSCY/ATROPINE/SCOP 5 ML UDC PO STA (23:17)
[2018-01-27] MEDS ORDERED: PROMETHAZINE INJ 25 MG in SODIUM CHLORIDE 0.9% 50 ML IV STA (00:13)
[2018-01-27] MEDS ORDERED: ONDANSETRON 4 MG/2 ML VIAL IVP PRN (01:11)
[2018-01-27] MEDS ORDERED: PROCHLORPERAZINE 10 MG/2 ML VIAL IVP PRN (01:11)
[2018-01-27] MEDS ORDERED: ONDANSETRON ODT 4 MG TABLET TL PRN (01:11)
[2018-01-27] MEDS ORDERED: ACETAMINOPHEN 325 MG TABLET PO PRN (01:11)
[2018-01-27] MEDS ORDERED: HALOPERIDOL 5 MG/ML VIAL IM SCH (01:15)
[2018-01-27] MEDS ORDERED: LORazepam 2 MG/ML VIAL IVP PRN (01:16)
[2018-01-27] MEDS: SODIUM CHLORIDE 0.9% 1,000 ML IV SCH ×2 (02:27→10:27)
[2018-01-27] MEDS: SODIUM CHLORIDE FLUSH 0.9% 10 ML SYRINGE IVP PRN ×2 (02:35→06:19)
--- NOTE | 2018-01-27 03:52 | HISTORY & PHYSICAL EXAMINATION ---
DATE OF SERVICE: Physician: Antoinette Schmidt MD PRIMARY CARE PROVIDER: JUAN Richard. ADMITTING PROVIDER: Antoinette Schmidt MD CHIEF COMPLAINT: Nausea and vomiting. The patient is known to our service and has been admitted to the hospital in February 2017, June 2017, July 2017 (twice), September 2017, and 12/29/2017 for the same symptoms. He has had type 1 diabetes since the age of 3. His complications include gastroparesis, neuropathy has developed over the last year, but he denies retinopathy or nephropathy. He was just admitted 12/29/2017 with nausea and vomiting and abdominal pain. He says that he has been hospitalized in [place] in the last year as well. He has had difficulty getting to his primary care visits because of lack of transportation. He lives with one of his aunts. But he was able to follow through with establishing himself with Justina Patel and was seen 06/08/2017. He had an appointment to be seen January 04 and case management made an effort to reach out to the family and double check that he was going to follow through with those appointments. He said he was, but in looking at [facility], there is no note for January 04. He now returns with recurrence of his nausea and vomiting. This is his fourth emergency room visit in the last few days for the same problem. No fevers, no diarrhea. Sugars have been climbing higher today. ER doctor has requested the patient be placed in observation for overnight aggressiveness, use of antiemetics and IV fluids in this poor unfortunate man who has been in the emergency room several times this week. PAST MEDICAL HISTORY: 1. Type 1 diabetes mellitus, with complications, uncontrolled with hyperglycemia, and complications of gastroparesis, peripheral neuropathy. 2. Chronic protein calorie malnutrition. 3. History of UTI. ALLERGIES: NONE. MEDICATIONS: 1. Bentyl 20 mg p.o. t.i.d. as needed. 2. NovoLog sliding scale before each meal t.i.d. 3. Lantus 40 units subcutaneous daily. 4. Zofran 4 mg q. 6 hours p.r.n. nausea. Right now, he does not have any Phenergan or Compazine or Zantac. SOCIAL HISTORY: He is estranged from his mom, and lives with his aunt here in [facility]. He has done so for about 3 years. He uses cannabis frequently. Denies any history of cocaine, heroin, LSD, or methamphetamines. He was not able to graduate high school. Sometimes he works at [employer]. FAMILY HISTORY: Positive for type 2 diabetes. REVIEW OF SYSTEMS: Difficult to obtain. This boy tends to be emotionally withdrawn, almost silent in his apathy. He is not angry, he is not belligerent, he just does not want to talk. A 10-point review of systems was difficult to obtain. Of the short information I was able to get out of him, he says that sometimes his mouth is dry, sometimes his vision is blurred. He denies chest pain, palpitation, shortness of breath. He does not have fever, cough, chest congestion. His stomach hurts almost all the time and it waxes and wanes. Generalized midabdominal pain without diarrhea or blood in the stool. He just does not have an appetite, eats irregularly, and does not take his insulin on a regular basis. He hurt all over, but no specific joint pain. Denies headaches, syncope, seizures. PHYSICAL EXAMINATION: VITAL SIGNS: Temperature is 36.3, pulse is 100, blood pressure 140/105, respirations 12 and unlabored. He is 100% saturated with 2 liters nasal cannula and he is also 100 % saturated on room air. GENERAL: He is a gaunt cachectic young white male who looks older than stated age, with a very muted, apathetic, withdrawn affect. HEAD AND NECK: Does not have bilateral temporal wasting yet, but he is an excessively slender young male. Pupils are reactive. Sclerae are nonicteric. Oral mucosa is dry, but pink. Lips are cracked. His last emesis was scant bilious material without blood a few minutes ago. NECK: Supple, without goiter or bruits. LUNGS: Clear to auscultation and percussion and he does not have increased respiratory effort. He is comfortable with shallow respirations. CARDIAC: PMI normally placed and is occasionally tachycardic. Regular rate and rhythm. No murmurs. ABDOMEN: Soft, firm abdominal musculature, scaphoid. Nontender. Normal bowel sounds. No masses. EXTREMITIES: Without clubbing, cyanosis or edema. No joint effusions. NEUROLOGIC: He is alert and oriented to person, place and time, able to sit himself up in bed for me. Plantar and dorsiflexion strength testing is normal, and symmetrical. When I use a slight cotton ball to have him tested for light touch, he does not feel the cotton ball on his skin of his toes until I get up to mid ankle. White cell count is 3.7, hemoglobin 14, hematocrit 41, platelets 277. Sodium 135, potassium 3.4, BUN 10, creatinine 0.5. Random glucose is 402 and able to be brought down to 124 with treatment in the ED. Amylase 22. Serum ketones are negative. ASSESSMENT AND PLAN: 1. Intractable nausea and vomiting secondary to presumed gastroparesis. There is some hypokalemia with this. Plan is to place the patient in observation. Attestation that he will be admitted less than 96 hours. Continue aggressive IV fluids, give 1 dose of Haldol, Ativan 0.5 mg q. 2 p.r.n. Continue with Phenergan, Zofran. Keep n.p.o. Give IV potassium 10 meq for 1 dose and recheck labs in am. Hopefully, he will be stable overnight so that tomorrow morning, we can start advancing his diet. 2. Noncompliance. [facility], the patient was reached twice, as was his aunt. He was reminded about his January 04 appointment. We will ask case management to verify what is going on. 3. Type 1 diabetes mellitus with complications. Resume his usual Lantus, watch glucose carefully since he is n.p.o. at this time. 4. FULL CODE status. 5. Deep venous thrombosis prophylaxis: ENEIDA castillo. TD: 01/27/2018 03:51 [facility]
[2018-01-27] MEDS ORDERED: PANTOPRAZOLE 40 MG VIAL IVP SCH (07:00)
[2018-01-27 07:03] LABS: MUDS CUTOFF CONCENTRATIONS CUTOFF CONC BELOW:
[2018-01-27 07:08] LABS: BILIRUBIN,URINE NEGATIVE (NEGATIVE); GLUCOSE, URINE (UA) >=1000 mg/dL (NEGATIVE); KETONES,URINE (UA) 15 mg/dL (NEGATIVE); LEUKOCYTE ESTERASE, URINE NEGATIVE (NEGATIVE); NITRITE,URINE NEGATIVE (NEGATIVE); OCCULT BLOOD,URINE NEGATIVE (NEGATIVE); PROTEIN,URINE NEGATIVE (NEGATIVE); UROBILINOGEN,URINE 0.2 (NORMAL) E.U./dL (NORMAL)
[2018-01-27 07:10] LABS: CLARITY,URINE CLEAR (CLEAR)
[2018-01-27 07:22] LABS: AMPHETAMINE SCREEN,URINE NEGATIVE (NEGATIVE); BENZODIAZEPINES SCREEN, URINE NEGATIVE (NEGATIVE); COCAINE SCREEN URINE NEGATIVE (NEGATIVE); METHADONE SCREEN, URINE NEGATIVE (NEGATIVE); METHAMPHETAMINES SCREEN, URINE NEGATIVE (NEGATIVE); OPIATE SCREEN, URINE NEGATIVE (NEGATIVE); OXYCODONE SCREEN, URINE NEGATIVE (NEGATIVE); PROPOXYPHENE SCREEN, URINE NEGATIVE (NEGATIVE); TRICYCLIC ANTIDEPRESSANT,URINE NEGATIVE (NEGATIVE)
[2018-01-27] MEDS ORDERED: POTASSIUM CHLORIDE 20 MEQ TABLET PO ONE (08:11)
[2018-01-27] MEDS ORDERED: POTASSIUM CHLOR 10 MEQ/100 ML 10 MEQ/100 ML BAG IV ONE (08:30)
[2018-01-27] MEDS ORDERED: SODIUM CHLORIDE FLUSH 0.9% 10 ML SYRINGE IVP SCH (09:00)
[2018-01-27] MEDS ORDERED: POLYETHYLENE GLYCOL 3350 17 GM PACKET PO SCH (09:00)
--- NOTE | 2018-01-27 09:15 | Discharge Plan ---
Discharge Plan Disposition: Home, Self Care Condition: Poor Prescriptions: Metoclopramide [Reglan] 10 mg PO Q6H PRN #15 tablet PRN Reason: Nausea / Vomiting Diet: Diabetic Activity Restrictions: Activity as Tolerated Shower Restrictions: No Driving Restrictions: No Weight Bearing: Full Weight Instruction Topics: Metoclopramide tablets, ED Diabetic Gastroparesis Additional Instructions or Follow Up instructions: May follow up PCP in 2-3 days, follow up head usher as out-pt. Should your symptoms return or worsen, you may present ER or call 911 for help. No Smoking: If you smoke, Please STOP! Call for help. Follow-up with: Justina Patel ARNP [Primary Care Provider] -
[2018-01-27 10:17] LABS: HB2 TOTAL 15.8 g/dL; HEMOGLOBIN A1C 1.72 g/dL; HEMOGLOBIN A1C % 12.1 % (4.6-6.2)
[2018-01-27] MEDS ORDERED: INSULIN ASPART 300 UNIT/3 ML PEN SUBQ SCH (12:00)
[2018-01-27] MEDS ORDERED: ERYTHROMYCIN BASE DR 250 MG TABLET PO SCH (13:00)
--- NOTE | 2018-01-27 13:36 | DISCHARGE SUMMARY ---
Discharge Summary Discharge Date: 01/27/18 Discharging Provider: LOPEZ Primary Care Provider: Justina Valladares Condition at Discharge: Poor Discharge Disposition: 01 Home, Self Care Discharge Facility Name: home - DIAGNOSES Admission Diagnoses: 1, intractable nausea and vomiting, secondary to presumed gastroparesis 2,medical non-compliance 3, DM1 Discharge Diagnoses with Status of Each Condition: 1, intractable nausea and vomiting, secondary to presumed gastroparesis resolved of N/V, pt request to be d/c to home. Advise pt closely follow up PCP and have out-pt structures engineer follow up. 2,medical non-compliance advise and consult to pt for medical compliance 3, DM1 continue home insulin schedule. advise closely follow up PCP - HPI History of Present Illness: refer from Dr. Addis Schmidt's HPI for pt on 01/27/18 - HOSPITAL COURSE Hospital Course: Pt was admitted for intractable nausea and vomiting, secondary to presumed gastroparesis, hyperglycemia secondary to medical non-compliance. Pt was treated with antiemesis and bowel rest diet. Next day, pt's symptoms was resolved. pt request to be d/c to home. pt tolerated the diet as well. Pt was advised for medical compliance, follow up PCP and have out-pt GI doctor consult. - ALLERGIES Allergies/Adverse Reactions: Allergies Allergy/AdvReac Type Severity Reaction Status Date / Time No Known Drug Allergies Allergy Verified 01/31/18 10:05 - MEDICATIONS Home Medications: Ambulatory Orders Medication Instructions Recorded Confirmed Insulin Aspart [Novolog] 0 - 12 unit SUBQ TIDWM 04/15/15 01/31/18 Insulin Glargine,Hum.rec.anlog 40 unit SQ DAILY PM 12/30/17 01/31/18 [Basaglar Kwikpen U-100] Ondansetron Odt [Zofran Odt] 4 mg TL Q6H PRN #15 tablet 01/23/18 01/31/18 - PHYSICAL EXAM AT DISCHARGE General Appearance: positive: No acute distress, Alert. negative: Lethargic Eyes Bilateral: positive: Normal inspection, PERRL, No lid inflammation, Conjunctivae nml ENT: positive: ENT inspection nml, Pharynx nml, No signs of dehydration. negative: Purulent nasal drainage, Pharyngeal erythema, Oral lesions Neck: positive: Nml inspection, Thyroid nml, No JVD, Trachea midline. negative : Thyromegaly, Lymphadenopathy (R), Lymphadenopathy (L), Stiff neck, Carotid bruit, Swelling/bruising, Tracheal deviation Respiratory: positive: Chest non-tender, No respiratory distress, Breath sounds nml. negative: Wheezes, Rales, Rhonchi Cardiovascular: positive: Regular rate & rhythm, No murmur, No gallop. negative : Irregularly irregular, Extrasystoles, Tachycardia, Bradycardia, JVD present, Systolic murmur, Diastolic murmur Peripheral Pulses: positive: 2+ Abdomen: positive: Non-tender, No organomegaly, Nml bowel sounds, No distention. negative: Tenderness, Guarding, Rebound Back: positive: Nml inspection. negative: CVA tenderness (R), CVA tenderness (L ) Skin: positive: Color nml, No rash, Warm, Dry. negative: Cyanosis, Diaphoresis , Pallor Extremities: positive: Non-tender, Full ROM, Nml appearance. negative: Calf tenderness, Joint swelling, Cordell's sign/cords Neurologic/Psychiatric: positive: Oriented x3, Motor nml, Sensation nml, Mood/ affect nml. negative: Weakness, Sensory loss, Facial droop, Slurred/abnml speech, Depressed mood/affect - LABS Result Diagrams: 01/26/18 21:33 01/26/18 21:20 - FOLLOW UP Follow Up: You May follow up PCP in 2-3 days, follow up structures engineer as out-pt. Should your symptoms return or worsen, you may present ER or call 911 for help. - TIME SPENT Time Spent in Discharge (Minutes): 35
[2018-01-27 14:37] VITALS: BP 113/78
== END 2018-01-27 14:57 | disposition home or self-care (01) ==
LOC: ED 20:56 → MS2 01-27 01:11
PROVIDERS: ADMIT Specialist; ATTEND Nurse Practitioner Gerontology
DX: R11.14 Bilious vomiting (principal); E86.0 Dehydration; E87.6 Hypokalemia; E10.65 Type 1 diabetes mellitus with hyperglycemia; T38.3X6A Underdosing of insulin and oral hypoglycemic [antidiabetic] drugs, initial encounter; R10.84 Generalized abdominal pain; R10.816 Epigastric abdominal tenderness; E10.43 Type 1 diabetes mellitus with diabetic autonomic (poly)neuropathy; K31.84 Gastroparesis; E46 Unspecified protein-calorie malnutrition; Z79.4 Long term (current) use of insulin; Z91.19 Patient's noncompliance with other medical treatment and regimen
CPT/HCPCS: 36415; 80053; 80306; 81003; 82009; 82803; 83036; 83690; 83735; 84100; 85025; 96361; 96365; 96366; 96367; 96375; 99283; 99284; A9270; G0378; J1815; J2270; J7040; 81001; 87086

== ENCOUNTER 2018-01-29 00:48 | Emergency (ER) | payer MEDICAID ==
[2018-01-29] MEDS ORDERED: SODIUM CHLORIDE 0.9% 1,000 ML IV ONE (01:09)
[2018-01-29 01:24] LABS: BASOPHILS # (AUTO) 0.1 10^3/uL (0.0-0.1); BASOPHILS % (AUTO) 1.7 %; EOSINOPHILS # (AUTO) 0.1 10^3/uL (0.0-0.7); EOSINOPHILS % (AUTO) 1.3 %; HGB - HEMOGLOBIN 14.6 g/dL (14.0-18.0); LYMPHOCYTES # (AUTO) 2.1 10^3/uL (1.5-3.5); LYMPHOCYTES % (AUTO) 39.1 %; MEAN CORPUSCULAR HEMOGLOBIN 30.6 pg (27.0-31.0); MEAN CORPUSCULAR HGB CONC 34.4 g/dL (32.0-36.0); MONOCYTES # (AUTO) 0.3 10^3/uL (0.0-1.0); MONOCYTES % (AUTO) 5.9 %; NEUTROPHILS # (AUTO) 2.8 10^3/uL (1.5-6.6); PLT - PLATELET COUNT 272 10^3/uL (130-450); RED BLOOD COUNT 4.76 10^6/uL (4.70-6.10); RED CELL DISTRIBUTION WIDTH 12.5 % (12.0-15.0); WHITE BLOOD COUNT 5.4 x10^3/uL (4.8-10.8)
[2018-01-29 01:26] LABS: KETONES, SERUM (ACETEST) SMALL (NEGATIVE)
[2018-01-29 01:32] LABS: ALBUMIN 4.2 g/dL (3.2-5.5); ALBUMIN/GLOBULIN RATIO 1.2 (1.0-2.2); ALKALINE PHOSPHATASE 78 IU/L (42-121); ALT ALANINE AMINOTRANSFERASE 15 IU/L (10-60); AST ASPARTATE AMINOTRANSFERASE 16 IU/L (10-42); BILIRUBIN,TOTAL 0.6 mg/dL (0.2-1.0); BUN - BLOOD UREA NITROGEN 10 mg/dL (6-20); CALCIUM 9.2 mg/dL (8.5-10.3); CARBON DIOXIDE - CO2 25 mmol/L (21-32); CHLORIDE 96 mmol/L (101-111); CREATININE 0.7 mg/dL (0.6-1.2); GFR - MDRD 145 (>89); LIPASE 30 U/L (22-51); SODIUM 132 mmol/L (135-145); TOTAL PROTEIN 7.6 g/dL (6.7-8.2)
[2018-01-29 01:33] LABS: GLUCOSE 529 mg/dL (70-100)
[2018-01-29] MEDS ORDERED: SODIUM CHLORIDE 0.9% 1,000 ML IV STA ×2 (01:52→04:41)
[2018-01-29] MEDS ORDERED: ONDANSETRON 4 MG/2 ML VIAL IVP STA ×2 (01:52→05:28)
--- NOTE | 2018-01-29 01:52 | ED Physician Documentation ---
PD HPI NVD - Stated complaint Stated Complaint: NAUSEA/VOMITING - Chief complaint Chief Complaint: Abd Pain - History obtained from History obtained from: Patient - History of Present Illness Timing - onset: Today Timing - duration: Hours Timing - details: Gradual onset Pain level now: 6 Associated symptoms: Abdominal pain. No: Fever Improved by: Other (no ameliorating factors) Worsened by: Other (no exacerbating factors) Recently seen: Emergency Dept (frequent [facility] ED visits over past several weeks including admissions to the hospital (most recent was few days ago)) - Additonal information Additional information: c/o nausea, vomiting, generalized abdominal pain. Review of Systems Constitutional: reports: Sweats. denies: Fever, Chills Cardiac: reports: Reviewed and negative Respiratory: reports: Reviewed and negative GI: reports: Abdominal Pain, Nausea, Vomiting. denies: Constipation, Diarrhea : denies: Dysuria, Frequency Neurologic: denies: Generalized weakness, Headache Endocrine: denies: Polyuria PD PAST MEDICAL HISTORY - Past Medical History Past Medical History: Yes Cardiovascular: None Respiratory: None Neuro: Peripheral neuropathy Endocrine/Autoimmune: Type 1 diabetes GI: Other : None HEENT: None Psych: None Musculoskeletal: None Derm: None - Past Surgical History Past Surgical History: No - Present Medications Home Medications: Ambulatory Orders Medication Instructions Recorded Confirmed Insulin Aspart [Novolog] 0 - 12 unit SUBQ TIDWM 04/15/15 01/27/18 Insulin Glargine,Hum.rec.anlog 40 unit SQ DAILY PM 12/30/17 01/27/18 [Basaglar Kwikpen U-100] Ondansetron Odt [Zofran Odt] 4 mg TL Q6H PRN #15 tablet 01/23/18 01/27/18 Metoclopramide [Reglan] 10 mg PO Q6H PRN #15 tablet 01/27/18 - Allergies Allergies/Adverse Reactions: Allergies Allergy/AdvReac Type Severity Reaction Status Date / Time No Known Drug Allergies Allergy Verified 01/29/18 00:54 - Social History Does the pt smoke?: No Smoking Status: Never smoker Does the pt drink ETOH?: Yes Does the pt have substance abuse?: No - Immunizations Immunizations are current?: Yes - POLST Patient has POLST: No POLST Status: Full Code PD ED PE NORMAL - Vitals Vital signs reviewed: Yes - General General: Alert and oriented X 3, No acute distress, Well developed/nourished - HEENT HEENT: PERRL, EOMI, Other (tacky/pasty mucous membranes) - Neck Neck: Supple, no meningeal sign - Cardiac Cardiac: RRR, No murmur - Respiratory Respiratory: No respiratory distress, Clear bilaterally - Abdomen Abdomen: Normal bowel sounds, Soft, Non tender, Non distended - Back Back: No CVA TTP - Derm Derm: Normal color, Warm and dry Results - Vitals Vitals: Vital Signs - 24 hr 01/29/18 01/29/18 01/29/18 00:52 01:38 02:13 Temperature 36.2 C L Heart Rate 94 94 102 H Respiratory 18 18 18 Rate Blood Pressure 143/107 H 140/105 H 137/103 H O2 Saturation 100 100 100 01/29/18 01/29/18 01/29/18 03:17 04:05 04:20 Temperature 36.7 C Heart Rate 99 99 100 Respiratory 18 16 16 Rate Blood Pressure 132/95 H 135/100 H 135/98 H O2 Saturation 100 100 100 01/29/18 01/29/18 04:58 05:35 Temperature 36.4 C L Heart Rate 104 H 96 Respiratory 16 16 Rate Blood Pressure 132/98 H 136/90 H O2 Saturation 100 100 Oxygen O2 Source Room air - Labs Labs: Laboratory Tests 01/29/18 01/29/18 01/29/18 01:00 01:00 02:17 WBC 5.4 RBC 4.76 Hgb 14.6 Hct 42.3 MCV 89.0 MCH 30.6 MCHC 34.4 RDW 12.5 Plt Count 272 MPV 8.0 Neut # 2.8 Lymph # 2.1 Foard # 0.3 Eos # 0.1 Baso # 0.1 Absolute Nucleated RBC 0.00 Nucleated RBC % 0.0 Sodium 132 L Potassium 3.8 Chloride 96 L Carbon Dioxide 25 Anion Gap 11.0 BUN 10 Creatinine 0.7 Estimated GFR (MDRD) 145 Glucose 529 H* POC Whole Bld Glucose 415 H Calcium 9.2 Total Bilirubin 0.6 AST 16 ALT 15 Alkaline Phosphatase 78 Total Protein 7.6 Albumin 4.2 Globulin 3.4 Albumin/Globulin Ratio 1.2 Lipase 30 Serum Ketones SMALL H 01/29/18 01/29/18 03:15 04:54 WBC RBC Hgb Hct MCV MCH MCHC RDW Plt Count MPV Neut # Lymph # Foard # Eos # Baso # Absolute Nucleated RBC Nucleated RBC % Sodium Potassium Chloride Carbon Dioxide Anion Gap BUN Creatinine Estimated GFR (MDRD) Glucose POC Whole Bld Glucose 197 H 163 H Calcium Total Bilirubin AST ALT Alkaline Phosphatase Total Protein Albumin Globulin Albumin/Globulin Ratio Lipase Serum Ketones PD MEDICAL DECISION MAKING - ED course Complexity details: reviewed old records, reviewed results, re-evaluated patient , considered differential, d/w patient ED course: small serum ketones, blood sugar over 500. Nausea, vomiting were controlled with IV fluids and zofran, phenergan. The blood sugar improved over several finger stick checks to 400s, then 200s, and then 100s (197 and then 163). He received three liters NS during ED stay as well as 12 units regular insulin. He also received ofirmev, toradol. He had ongoing pain c/o, although noted to be asleep nearly every time I entered the room; easily awoken, but falls asleep rapidly, as well. I did not feel stronger pain medication, such as opiate/opioid , would be appropriate at this time. He tells me he has trouble with keeping compliant with diet and his finger stick checks as well as using his insulin. He seemed disinterested in pursuing follow-up so he can be reeducated with management of his diabetes. Departure - Departure Disposition: 01 Home, Self Care Clinical Impression: Diabetes type 1, uncontrolled Qualifiers: Diabetes mellitus complication status: without complication Qualified Code(s): E10.65 - Type 1 diabetes mellitus with hyperglycemia Condition: Good Instructions: ED Hyperglycemia Diabetic, ED Diet Diabetic Follow-Up: Justina Patel ARNP [Primary Care Provider] - Within 3 Days Discharge Date/Time: 01/29/18 05:37
[2018-01-29] MEDS ORDERED: INSULIN REGULAR HUMAN 100 UNIT/1 ML 10 ML MDV IVP STA (01:53)
[2018-01-29] MEDS ORDERED: KETOROLAC 60 MG/2 ML VIAL IVP STA (03:21)
[2018-01-29] MEDS ORDERED: ACETAMINOPHEN 1,000 MG/100 ML 100 ML IV STA (03:21)
[2018-01-29] MEDS ORDERED: PROMETHAZINE INJ 25 MG in SODIUM CHLORIDE 0.9% 50 ML IV STA (03:23)
[2018-01-29 05:37] VITALS: BP 136/90
== END 2018-01-29 05:37 | disposition home or self-care (01) ==
LOC: ED 00:48
DX: E10.65 Type 1 diabetes mellitus with hyperglycemia (principal); Z79.4 Long term (current) use of insulin
CPT/HCPCS: 80053; 82009; 83690; 85025; 96361; 96365; 96375; 96376; 99284; J0131; J1815; J7040; 36415

== ENCOUNTER 2018-01-31 09:50 | Emergency (ER) | payer MEDICAID ==
--- NOTE | 2018-01-31 11:44 | ED Physician Documentation ---
PD HPI ABD PAIN - Stated complaint Stated Complaint: ABD PX/VOMITING - Chief complaint Chief Complaint: Abd Pain - History obtained from History obtained from: Patient - History of Present Illness Timing - onset: Today Timing - duration: Hours Timing - details: Abrupt onset, Still present Quality: Sharp, Pain Location: Suprapubic Improved by: Vomiting, Position Worsened by: Moving, Position, Palpation Associated symptoms: Nausea, Vomiting Similar symptoms before: Diagnosis (gastroparesis) Recently seen: Emergency Dept (This is the 9th ED visit in the past month for this problem) - Additional information Additional information: 17-year-old type I diabetic has developed nausea vomiting abdominal pain again today. He has had an issue with nausea vomiting abdominal pain resulting in 9 emergency department visits and one admission to the hospital. He is not checking his sugars as frequently as he should he is taking his insulin and he continues to have issues with vomiting. His return to the emergency department today asking for pain medication. He states that he has not filled his pain medications when he goes home when he has been prescribed this previously. Review of Systems Constitutional: denies: Fever Eyes: denies: Decreased vision Ears: denies: Ear pain Nose: reports: Congestion. denies: Rhinorrhea / runny nose Throat: denies: Sore throat Cardiac: denies: Chest pain / pressure, Palpitations Respiratory: denies: Dyspnea, Cough GI: reports: Abdominal Pain, Nausea, Vomiting : reports: Frequency Musculoskeletal: denies: Neck pain, Back pain, Extremity pain Neurologic: denies: Generalized weakness, Focal weakness, Numbness PD PAST MEDICAL HISTORY - Past Medical History Cardiovascular: None Respiratory: None Neuro: Peripheral neuropathy Endocrine/Autoimmune: Type 1 diabetes GI: Other : None HEENT: None Psych: None Musculoskeletal: None Derm: None - Past Surgical History Past Surgical History: No - Present Medications Home Medications: Ambulatory Orders Medication Instructions Recorded Confirmed Insulin Aspart [Novolog] 0 - 12 unit SUBQ TIDWM 04/15/15 01/31/18 Insulin Glargine,Hum.rec.anlog 40 unit SQ DAILY PM 12/30/17 01/31/18 [Basaglar Kwikpen U-100] Ondansetron Odt [Zofran Odt] 4 mg TL Q6H PRN #15 tablet 01/23/18 01/31/18 - Allergies Allergies/Adverse Reactions: Allergies Allergy/AdvReac Type Severity Reaction Status Date / Time No Known Drug Allergies Allergy Verified 01/31/18 10:05 - Social History Does the pt smoke?: No Smoking Status: Never smoker Does the pt drink ETOH?: Yes Does the pt have substance abuse?: No - Immunizations Immunizations are current?: Yes - POLST Patient has POLST: No POLST Status: Full Code PD ED PE NORMAL - Vitals Vital signs reviewed: Yes (tachy and hypertensive ) - General General: Alert and oriented X 3, Well developed/nourished, Other (The patient is sticking his hand down his throat to induce vomiting. ) - HEENT HEENT: Atraumatic, PERRL, EOMI, Ears normal, Other (dry mucous membranes) - Neck Neck: Supple, no meningeal sign, No bony TTP - Cardiac Cardiac: RRR, No murmur - Respiratory Respiratory: No respiratory distress, Clear bilaterally - Abdomen Abdomen: Other (The abdomen is firm and there is guarding present. He is thin and has maximal pain in the suprapubic area bilaterally but worse on the righ.t ) - Back Back: No CVA TTP, No spinal TTP - Derm Derm: Normal color, Warm and dry, No rash - Extremities Extremities: No deformity, No edema - Neuro 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, No motor deficit, No sensory deficit, Normal speech Eye Opening: Spontaneous Motor: Obeys Commands Verbal: Oriented GCS Score: 15 - Psych Psych: Normal mood, Other (flat affect. ) Results - Vitals Vitals: Vital Signs - 24 hr 01/31/18 01/31/18 01/31/18 10:03 14:08 15:53 Temperature 36.2 C L Heart Rate 102 H 97 91 Respiratory 16 15 14 Rate Blood Pressure 140/92 H 122/87 H 120/80 O2 Saturation 100 98 100 01/31/18 01/31/18 18:05 19:19 Temperature Heart Rate 88 86 Respiratory 14 16 Rate Blood Pressure 120/85 H 127/88 H O2 Saturation 100 99 Oxygen O2 Source Room air - Labs Labs: Laboratory Tests 01/31/18 01/31/18 01/31/18 10:30 10:30 10:34 WBC 3.4 L RBC 4.82 Hgb 14.6 Hct 42.7 MCV 88.4 MCH 30.2 MCHC 34.2 RDW 13.0 Plt Count 277 MPV 8.1 Neut # 2.3 Lymph # 1.0 L [place] # 0.2 Eos # 0.0 Baso # 0.0 Absolute Nucleated RBC 0.00 Nucleated RBC % 0.0 VBG pH VBG pCO2 VBG pO2 VBG HCO3 VBG Total CO2 VBG O2 Saturation VBG Base Excess Sodium 137 Potassium 2.8 L Chloride 100 L Carbon Dioxide 24 Anion Gap 13.0 BUN 8 Creatinine 0.4 L Estimated GFR (MDRD) 277 Glucose 212 H POC Whole Bld Glucose 202 H Calcium 9.0 Total Bilirubin 0.9 AST 13 ALT 12 Alkaline Phosphatase 69 Total Protein 7.2 Albumin 3.9 Globulin 3.3 Albumin/Globulin Ratio 1.2 Lipase 16 L Urine Color Urine Clarity Urine pH Ur Specific [place] Urine Protein Urine Glucose (UA) Urine Ketones Urine Occult Blood Urine Nitrite Urine Bilirubin Urine Urobilinogen Ur Leukocyte Esterase Ur Microscopic Review Urine Culture Comments Serum Ketones SMALL H 01/31/18 01/31/18 11:47 19:16 WBC RBC Hgb Hct MCV MCH MCHC RDW Plt Count MPV Neut # Lymph # [place] # Eos # Baso # Absolute Nucleated RBC Nucleated RBC % VBG pH 7.380 VBG pCO2 38.7 L VBG pO2 57.3 H VBG HCO3 22.4 L VBG Total CO2 23.6 L VBG O2 Saturation 90.7 H VBG Base Excess -2.4 L Sodium Potassium Chloride Carbon Dioxide Anion Gap BUN Creatinine Estimated GFR (MDRD) Glucose POC Whole Bld Glucose Calcium Total Bilirubin AST ALT Alkaline Phosphatase Total Protein Albumin Globulin Albumin/Globulin Ratio Lipase Urine Color YELLOW Urine Clarity CLEAR Urine pH 7.0 Ur Specific [place] 1.015 Urine Protein NEGATIVE Urine Glucose (UA) 500 H Urine Ketones >=80 H Urine Occult Blood TRACE-INTA Urine Nitrite NEGATIVE Urine Bilirubin NEGATIVE Urine Urobilinogen 0.2 (NORMAL) Ur Leukocyte Esterase NEGATIVE Ur Microscopic Review NOT INDICATED Urine Culture Comments NOT INDICATED Serum Ketones - Rads (name of study) CT abdomen and pelvis with oral and IV Radiology: Prelim report reviewed (Impression: 1. Distended urinary bladder. 2. Mild right hydronephrosis with out an obstructing stone. Differential considerations would include a recently passed ureteral stone, hydronephrosis secondary to distended bladder, vesicular urethral reflux, or pyelonephritis. 3. Normal appendix.), EMP read indepedently, See rad report PD MEDICAL DECISION MAKING - ED course Complexity details: reviewed old records, reviewed results, re-evaluated patient , considered differential, d/w patient ED course: 17-year-old type I diabetic male with the 9th visit to the emergency department in the past month for nausea vomiting and abdominal pain, is not in ketoacidosis , does not have markedly elevated blood sugar and is not markedly dehydrated. He does have persistent lower abdominal pain and is requesting medication for pain. On arrival into the patient's room he was inducing vomiting by sticking his hand down his mouth and this made concern for drug-seeking behavior. I reviewed his chart and found that he had had prior evaluations of his abdominal pain and a prior study showing an appendicolith and I thought it important to rule out the possibility of occult or chronic appendicitis. CT scan of the abdomen pelvis with oral and IV contrast was obtained. This took considerable amount of time as the patient only drank very small amounts of the contrast. The exam was adequate and the appendix was visualized with and is normal. On the exam the bladder was noted to be over distended and this is significant on the exam perhaps as much as 2 L in the bladder. The patient was notified of these results and a catheter was brought out and he indicated that he was still able to urinate and he tried hard. He went into the bathroom and urinated went back and urinating more and he was able to empty his bladder down to 250 mL's. He indicates that he has been holding his urine at night so that he does not have to get up and it appears he is probably trained his bladder to hold an excessive amount of urine and I suspect this is likely contributing to his symptoms. His symptoms seemed resolved after emptying his bladder and prior to that he required fentanyl for pain control. I have asked the patient to do timed voiding and Crede maneuver to manually express the urine to retrain his bladder. He seemed to understand the importance of this after seeing the catheter. Is discharged home in improved condition. Departure - Departure Disposition: 01 Home, Self Care Clinical Impression: Diabetic gastroparesis, Urinary retention Instructions: ED Retention Urinary Male Follow-Up: Justina Patel ARNP [Primary Care Provider] - Comments: It appears that your bladder is markedly distended and over filled. This is likely been a cause of your pain and even your vomiting. It appears you are able to empty this extremely large bladder and my recommendation is to do timed voiding and not to go any excessive period time without voiding. I also recommend each time you go that you do the Crede maneuver as discussed. Attempt to retrain your bladder to hold the regular amount of urine and do not allow it to overfill. Discharge Date/Time: 01/31/18 19:19
[2018-01-31] MEDS ORDERED: fentaNYL 100 MCG/2 ML VIAL IVP STA ×3 (11:48→16:19)
[2018-01-31] MEDS ORDERED: ONDANSETRON 4 MG/2 ML VIAL IVP STA (11:48)
[2018-01-31] MEDS ORDERED: SODIUM CHLORIDE 0.9% 1,000 ML IV ONE (11:49)
[2018-01-31 11:50] LABS: BASOPHILS % (AUTO) 0.8 %; EOSINOPHILS % (AUTO) 0.6 %; HGB - HEMOGLOBIN 14.6 g/dL (14.0-18.0); LYMPHOCYTES % (AUTO) 28.4 %; MEAN CORPUSCULAR HEMOGLOBIN 30.2 pg (27.0-31.0); MEAN CORPUSCULAR HGB CONC 34.2 g/dL (32.0-36.0); MEAN CORPUSCULAR VOLUME 88.4 fL (80.0-94.0); MEAN PLATELET VOLUME 8.1 fL (7.4-11.4); MONOCYTES # (AUTO) 0.2 10^3/uL (0.0-1.0); MONOCYTES % (AUTO) 4.5 %; NEUTROPHILS # (AUTO) 2.3 10^3/uL (1.5-6.6); NEUTROPHILS % (AUTO) 65.7 %; PLT - PLATELET COUNT 277 10^3/uL (130-450); RED BLOOD COUNT 4.82 10^6/uL (4.70-6.10); WHITE BLOOD COUNT 3.4 x10^3/uL (4.8-10.8)
[2018-01-31 11:54] LABS: KETONES, SERUM (ACETEST) SMALL (NEGATIVE)
[2018-01-31 11:59] LABS: ALBUMIN 3.9 g/dL (3.2-5.5); ALBUMIN/GLOBULIN RATIO 1.2 (1.0-2.2); ALKALINE PHOSPHATASE 69 IU/L (42-121); ALT ALANINE AMINOTRANSFERASE 12 IU/L (10-60); AST ASPARTATE AMINOTRANSFERASE 13 IU/L (10-42); BILIRUBIN,TOTAL 0.9 mg/dL (0.2-1.0); BUN - BLOOD UREA NITROGEN 8 mg/dL (6-20); CARBON DIOXIDE - CO2 24 mmol/L (21-32); CHLORIDE 100 mmol/L (101-111); CREATININE 0.4 mg/dL (0.6-1.2); GFR - MDRD 277 (>89); GLUCOSE 212 mg/dL (70-100); LIPASE 16 U/L (22-51); SODIUM 137 mmol/L (135-145); TOTAL PROTEIN 7.2 g/dL (6.7-8.2)
[2018-01-31] MEDS ORDERED: IOPAMIDOL-300 100 ML VIAL ONE (12:02)
[2018-01-31] MEDS ORDERED: IOPAMIDOL-300 50 ML VIAL ONE (12:02)
[2018-01-31 12:07] LABS: VBG BASE EXCESS -2.4 mmol/L (-2 - +2); VBG PCO2 38.7 mmHg (41-51); VBG PH 7.38 (7.31-7.41); VBG PO2 57.3 mmHg (25-47); VBG TOTAL CO2 23.6 mmol/L (24-29)
--- NOTE | 2018-01-31 17:04 | CT Report ---
EXAM: CT ABDOMEN AND PELVIS EXAM DATE: 01/31/2018 04:45 PM. CLINICAL HISTORY: RLQ abdominal pain vomiting. COMPARISONS: None. TECHNIQUE: Routine helical CT imaging was performed through the abdomen and pelvis. IV contrast: 100M L ISOVUE 300. Enteric contrast: Yes. Reconstructions: Coronal and sagittal. In accordance with CT protocol optimization, one or more of the following dose reduction techniques w ere utilized for this exam: automated exposure control, adjustment of mA and/or KV based on patient s ize, or use of iterative reconstructive technique. FINDINGS: Lung Bases: Unremarkable. Liver: Normal. No masses. Gallbladder/Bile Ducts: Unremarkable. Spleen: Normal. Pancreas: Normal. Adrenal Glands: Normal. Kidneys: There is mild hydronephrosis of the right kidney. Right ureter is mildly dilated. No ureter stone is visualized. Peritoneal Cavity/Bowel: The bowel is normal in caliber. No abnormal fluid or gas collection. The kasandra endix is well visualized and normal. Pelvic Organs: The urinary bladder is distended. The bladder measures 17.3 x 11.5 x 13.7 cm. Vasculature: No aneurysms or other significant abnormality. Bones: No significant abnormality. Other: None. IMPRESSION: 1. Distended urinary bladder. 2. Mild right hydronephrosis without an obstructing stone. Differential considerations would include a recently passed ureteral stone, hydronephrosis secondary to distended bladder, vesicoureteral reflu x, or pyelonephritis. 3. Normal appendix. [facility] Referring Provider Line: [phone] SITE ID: [id number]
--- NOTE | 2018-01-31 17:04 | CT Preliminary Report ---
Exam: CT ABDOMEN/PELVIS W/ IMPRESSION: 1. Distended urinary bladder. 2. Mild right hydronephrosis without an obstructing stone. Differential considerations would include a recently passed ureteral stone, hydronephrosis secondary to distended bladder, vesicoureteral reflu x, or pyelonephritis. 3. Normal appendix. [facility] SITE ID: [id number]
[2018-01-31] MEDS ORDERED: POTASSIUM CHLORIDE 20 MEQ TABLET PO STA (17:18)
[2018-01-31] MEDS ORDERED: IOPAMIDOL-300 100 ML VIAL IVP ONE (17:18)
[2018-01-31] MEDS ORDERED: IOPAMIDOL-300 50 ML VIAL PO ONE (18:25)
[2018-01-31 19:19] VITALS: BP 127/88
[2018-01-31 19:35] LABS: BILIRUBIN,URINE NEGATIVE (NEGATIVE); GLUCOSE, URINE (UA) 500 mg/dL (NEGATIVE); KETONES,URINE (UA) >=80 mg/dL (NEGATIVE); LEUKOCYTE ESTERASE, URINE NEGATIVE (NEGATIVE); NITRITE,URINE NEGATIVE (NEGATIVE); OCCULT BLOOD,URINE TRACE-INTA (NEGATIVE); PROTEIN,URINE NEGATIVE (NEGATIVE); UROBILINOGEN,URINE 0.2 (NORMAL) E.U./dL (NORMAL)
[2018-01-31 19:37] LABS: CLARITY,URINE CLEAR (CLEAR)
== END 2018-01-31 19:19 | disposition home or self-care (01) ==
LOC: ED 09:50
DX: E10.43 Type 1 diabetes mellitus with diabetic autonomic (poly)neuropathy (principal); K31.84 Gastroparesis; E10.42 Type 1 diabetes mellitus with diabetic polyneuropathy; Z79.4 Long term (current) use of insulin; R33.9 Retention of urine, unspecified
CPT/HCPCS: 36415; 74177; 80053; 81003; 82009; 82803; 83690; 85025; 96361; 96374; 96375; 96376; 99283; A9270; Q9967; 81001; 87086

== ENCOUNTER 2018-03-07 21:47 | Emergency (ER) | payer MEDICAID ==
[2018-03-07] MEDS ORDERED: SODIUM CHLORIDE 0.9% 1,000 ML IV ONE (22:13)
[2018-03-07 22:26] LABS: BASOPHILS % (AUTO) 0.5 %; EOSINOPHILS % (AUTO) 0.1 %; HGB - HEMOGLOBIN 14.9 g/dL (14.0-18.0); LYMPHOCYTES # (AUTO) 1.3 10^3/uL (1.5-3.5); LYMPHOCYTES % (AUTO) 19.4 %; MEAN CORPUSCULAR HEMOGLOBIN 30.9 pg (27.0-31.0); MEAN CORPUSCULAR HGB CONC 34.1 g/dL (32.0-36.0); MEAN CORPUSCULAR VOLUME 90.8 fL (80.0-94.0); MEAN PLATELET VOLUME 8.6 fL (7.4-11.4); MONOCYTES # (AUTO) 0.2 10^3/uL (0.0-1.0); MONOCYTES % (AUTO) 2.5 %; NEUTROPHILS % (AUTO) 77.5 %; PLT - PLATELET COUNT 245 10^3/uL (130-450); RED BLOOD COUNT 4.83 10^6/uL (4.70-6.10); RED CELL DISTRIBUTION WIDTH 12.5 % (12.0-15.0); WHITE BLOOD COUNT 6.5 x10^3/uL (4.8-10.8)
[2018-03-07 22:30] LABS: ALBUMIN 3.9 g/dL (3.2-5.5); ALBUMIN/GLOBULIN RATIO 1.1 (1.0-2.2); CALCIUM 9.3 mg/dL (8.5-10.3); CREATININE 0.5 mg/dL (0.6-1.2); TOTAL PROTEIN 7.6 g/dL (6.7-8.2)
--- NOTE | 2018-03-07 23:43 | ED Physician Documentation ---
PD HPI ABD PAIN - Stated complaint Stated Complaint: N/V/ABD PX - Chief complaint Chief Complaint: Abd Pain - History obtained from History obtained from: Patient - History of Present Illness Timing - onset: Chronic Timing - duration: Days Timing - details: Abrupt onset, Waxing and waning Pain level now: 8 Quality: Pain Location: All over / everywhere Radiation: No: Chest, , Lower back, Left flank, Left shoulder, Right flank, Right shoulder, Upper back Improved by: No: Eating, Laying still, Vomiting, BM, Position, Meds Worsened by: Eating, Palpation Associated symptoms: Nausea, Vomiting, Diarrhea. No: Fever Similar symptoms before: No diagnosis (gastroparesis has been suspected at times.) Recently seen: Emergency Dept - Additional information Additional information: 10th [facility] ED visit this year for same; some of these visits have included inpatient stay for intractable n/v, pain. tonight , presents with same thing as always (per patient): waxing and waning generalized abdominal pain, nausea, vomiting, occasional diarrhea. Review of Systems Constitutional: reports: Reviewed and negative Cardiac: reports: Reviewed and negative Respiratory: reports: Reviewed and negative GI: reports: Abdominal Pain, Nausea, Vomiting, Diarrhea. denies: Hematemesis, Bloody / black stool : denies: Dysuria, Frequency Musculoskeletal: denies: Back pain PD PAST MEDICAL HISTORY - Past Medical History Cardiovascular: None Respiratory: None Endocrine/Autoimmune: Type 1 diabetes GI: Other : None HEENT: None Psych: None Musculoskeletal: None Derm: None - Past Surgical History Past Surgical History: No - Present Medications Home Medications: Ambulatory Orders Medication Instructions Recorded Confirmed Insulin Aspart [Novolog] 0 - 12 unit SUBQ TIDWM 04/15/15 01/31/18 Insulin Glargine,Hum.rec.anlog 40 unit SQ DAILY PM 12/30/17 01/31/18 [Basaglar Kwikpen U-100] Ondansetron Odt [Zofran Odt] 4 mg TL Q6H PRN #15 tablet 01/23/18 01/31/18 Omeprazole [PriLOSEC] 20 mg PO DAILY #14 capsule 03/08/18 Ondansetron Odt [Zofran] 4 mg TL Q6H PRN #14 tablet 03/08/18 - Allergies Allergies/Adverse Reactions: Allergies Allergy/AdvReac Type Severity Reaction Status Date / Time No Known Drug Allergies Allergy Verified 03/09/18 00:12 - Social History Does the pt smoke?: No Smoking Status: Never smoker Does the pt drink ETOH?: Yes Does the pt have substance abuse?: No - Immunizations Immunizations are current?: Yes - POLST Patient has POLST: No POLST Status: Full Code PD ED PE NORMAL - Vitals Vital signs reviewed: Yes - General General: Alert and oriented X 3, No acute distress (asleep when I first enter room, awakens to voice with tactile, then begins groaning, clutching stomach), Well developed/nourished - HEENT HEENT: Moist mucous membranes - Neck Neck: Supple, no meningeal sign - Cardiac Cardiac: RRR, No murmur, No gallop, No rub - Respiratory Respiratory: No respiratory distress, Clear bilaterally - Abdomen Abdomen: Soft, Non distended, Other (periumbilical and epigastric tenderness with strong component of distractability) - Back Back: No CVA TTP - Derm Derm: Normal color, Warm and dry, No rash - Extremities Extremities: No edema Results - Vitals Vitals: Vital Signs - 24 hr 03/08/18 03/08/18 03/08/18 01:52 05:07 06:00 Temperature 37.5 C Heart Rate 129 H 135 H 124 H Respiratory 16 16 16 Rate Blood Pressure 139/89 H 137/85 H 132/90 H O2 Saturation 95 95 100 Oxygen O2 Source Room air - Labs Labs: Laboratory Tests 03/07/18 03/07/18 03/07/18 22:12 22:12 23:46 WBC 6.5 RBC 4.83 Hgb 14.9 Hct 43.8 MCV 90.8 MCH 30.9 MCHC 34.1 RDW 12.5 Plt Count 245 MPV 8.6 Neut # (Auto) 5.0 Lymph # (Auto) 1.3 L [place] # (Auto) 0.2 Eos # (Auto) 0.0 Baso # (Auto) 0.0 Absolute Nucleated RBC 0.01 Nucleated RBC % 0.1 VBG pH VBG pCO2 VBG pO2 VBG HCO3 VBG Total CO2 VBG O2 Saturation VBG Base Excess Sodium 135 Potassium 3.7 Chloride 99 L Carbon Dioxide 22 Anion Gap 14.0 H BUN 13 Creatinine 0.5 L Estimated GFR (MDRD) 214 Glucose 305 H POC Whole Bld Glucose Calcium 9.3 Total Bilirubin 1.0 AST 18 ALT 15 Alkaline Phosphatase 89 Total Protein 7.6 Albumin 3.9 Globulin 3.7 Albumin/Globulin Ratio 1.1 Serum Ketones SMALL H 03/07/18 03/08/18 23:46 06:02 WBC RBC Hgb Hct MCV MCH MCHC RDW Plt Count MPV Neut # (Auto) Lymph # (Auto) [place] # (Auto) Eos # (Auto) Baso # (Auto) Absolute Nucleated RBC Nucleated RBC % VBG pH 7.401 VBG pCO2 31.4 L VBG pO2 42.5 VBG HCO3 19.1 L VBG Total CO2 20.0 L VBG O2 Saturation 84.2 H VBG Base Excess -4.5 L Sodium Potassium Chloride Carbon Dioxide Anion Gap BUN Creatinine Estimated GFR (MDRD) Glucose POC Whole Bld Glucose 224 H Calcium Total Bilirubin AST ALT Alkaline Phosphatase Total Protein Albumin Globulin Albumin/Globulin Ratio Serum Ketones PD MEDICAL DECISION MAKING - ED course Complexity details: reviewed old records, reviewed results, re-evaluated patient , considered differential, d/w patient ED course: given IV NS x 3 liters, phenergan IV, zofran IV, ofirmev and Toradol IV. blood sugars dropped from 300s range to upper/mid 200s. As happened with my most recent encounter with this patient, he was consistently asleep when I would enter room to reevaluate him, and upon awakening, he would immediately begin moaning and c/o pain, frequently asks for something for the pain. I explained that, at this time, I did find medical justification (indication) for use of opiate medication. I explained that his test results are reassuring and that he would be discharged shortly. - Sepsis Event Vital Signs: Vital Signs - 24 hr 03/08/18 03/08/18 03/08/18 01:52 05:07 06:00 Temperature 37.5 C Heart Rate 129 H 135 H 124 H Respiratory 16 16 16 Rate Blood Pressure 139/89 H 137/85 H 132/90 H O2 Saturation 95 95 100 Oxygen O2 Source Room air Departure - Departure Disposition: 01 Home, Self Care Clinical Impression: Hyperglycemia Vomiting Qualifiers: Vomiting type: unspecified Vomiting Intractability: non-intractable Nausea presence: with nausea Qualified Code(s): R11.2 - Nausea with vomiting, unspecified Condition: Good Instructions: ED Hyperglycemia Diabetic, ED Abdominal Pain Unkn Cause Male Follow-Up: Justina Patel ARNP [Primary Care Provider] - (Please contact your doctor today to arrange for the next available appointment for reevaluation) Prescriptions: Omeprazole [PriLOSEC] 20 mg PO DAILY #14 capsule Ondansetron Odt [Zofran] 4 mg TL Q6H PRN #14 tablet PRN Reason: Nausea / Vomiting Discharge Date/Time: 03/08/18 06:10
[2018-03-07 23:54] LABS: VBG BASE EXCESS -4.5 mmol/L (-2 - +2); VBG PCO2 31.4 mmHg (41-51); VBG PH 7.401 (7.31-7.41); VBG PO2 42.5 mmHg (25-47)
[2018-03-07] MEDS ORDERED: KETOROLAC 30 MG/ML VIAL IVP STA (23:59)
[2018-03-07] MEDS ORDERED: ACETAMINOPHEN 1,000 MG/100 ML 100 ML IV STA (23:59)
[2018-03-08] MEDS ORDERED: PROMETHAZINE INJ 25 MG in SODIUM CHLORIDE 0.9% 50 ML IV STA ×2
[2018-03-08] MEDS ORDERED: SODIUM CHLORIDE 0.9% 1,000 ML IV STA ×2 (00:41→05:13)
[2018-03-08] MEDS ORDERED: ONDANSETRON 4 MG/2 ML VIAL IVP STA (05:00)
[2018-03-08 06:01] VITALS: BP 132/90
== END 2018-03-08 06:10 | disposition home or self-care (01) ==
LOC: ED 21:47
DX: E10.65 Type 1 diabetes mellitus with hyperglycemia (principal); R11.2 Nausea with vomiting, unspecified
CPT/HCPCS: 36415; 80053; 82009; 82803; 85025; 96361; 96365; 96375; 99283; 99284; J0131; J7040

== ENCOUNTER 2018-03-09 00:01 | Inpatient (IN) | payer MEDICAID ==
[2018-03-09] MEDS ORDERED: SODIUM CHLORIDE 0.9% 1,000 ML IV ONE ×2 (00:05→00:54)
[2018-03-09] MEDS ORDERED: HALOPERIDOL 5 MG/ML VIAL IVP ONE (00:12)
[2018-03-09] MEDS ORDERED: ONDANSETRON 4 MG/2 ML VIAL IVP STA (00:12)
[2018-03-09 00:37] LABS: VBG BASE EXCESS -13.5 mmol/L (-2 - +2); VBG PCO2 26.6 mmHg (41-51); VBG PH 7.262 (7.31-7.41); VBG PO2 174.8 mmHg (25-47); VBG TOTAL CO2 12.5 mmol/L (24-29)
[2018-03-09 00:42] LABS: BASOPHILS % (AUTO) 0.5 %; HGB - HEMOGLOBIN 14.3 g/dL (14.0-18.0); LYMPHOCYTES # (AUTO) 1.4 10^3/uL (1.5-3.5); LYMPHOCYTES % (AUTO) 15.9 %; MEAN CORPUSCULAR HEMOGLOBIN 30.8 pg (27.0-31.0); MEAN CORPUSCULAR HGB CONC 33.4 g/dL (32.0-36.0); MEAN CORPUSCULAR VOLUME 92.3 fL (80.0-94.0); MEAN PLATELET VOLUME 8.4 fL (7.4-11.4); MONOCYTES # (AUTO) 0.3 10^3/uL (0.0-1.0); MONOCYTES % (AUTO) 3.7 %; NEUTROPHILS # (AUTO) 6.9 10^3/uL (1.5-6.6); NEUTROPHILS % (AUTO) 79.9 %; PLT - PLATELET COUNT 255 10^3/uL (130-450); RED BLOOD COUNT 4.65 10^6/uL (4.70-6.10); RED CELL DISTRIBUTION WIDTH 13.2 % (12.0-15.0); WHITE BLOOD COUNT 8.6 x10^3/uL (4.8-10.8)
[2018-03-09 00:44] LABS: KETONES, SERUM (ACETEST) MODERATE (NEGATIVE)
[2018-03-09 00:50] LABS: PHOSPHORUS 1.8 mg/dL (2.5-4.6)
[2018-03-09 01:18] LABS: ALBUMIN 3.8 g/dL (3.2-5.5); ALBUMIN/GLOBULIN RATIO 1.1 (1.0-2.2); BILIRUBIN,TOTAL 1.4 mg/dL (0.2-1.0); CALCIUM 9.5 mg/dL (8.5-10.3); CREATININE 0.6 mg/dL (0.6-1.2); TOTAL PROTEIN 7.4 g/dL (6.7-8.2)
[2018-03-09] MEDS ORDERED: INSULIN REGULAR HUMAN 100 UNIT in SODIUM CHLORIDE 0.9% 100ML 99 ML IV STA (01:19)
[2018-03-09] MEDS ORDERED: POTASSIUM CHLOR 10 MEQ/100 ML 10 MEQ/100 ML BAG IV ONE (01:20)
--- NOTE | 2018-03-09 01:28 | ED Physician Documentation ---
PD HPI ABD PAIN - Stated complaint Stated Complaint: NAUSEA,VOMITING - Chief complaint Chief Complaint: Abd Pain - History obtained from History obtained from: Patient - History of Present Illness Timing - onset: Yesterday Timing - details: Gradual onset, Still present Quality: Cramping, Aching Location: Epigastric Associated symptoms: Nausea, Vomiting. No: Fever Similar symptoms before: Work up / diagnostics, Treatment Recently seen: Emergency Dept - Additional information Additional information: Patient is a 17 year old male with a history of diabetes and multiple visits for nausea, vomiting and abdominal pain who is presenting for nausea, vomiting and abdominal pain. patient was seen in the emergency department yesterday and at that time he was well appearing with normal blood work. Patient decompensated and returned to the emergency department today. Review of Systems Constitutional: denies: Fever, Chills Eyes: reports: Reviewed and negative Cardiac: reports: Chest pain / pressure GI: reports: Abdominal Pain, Nausea, Vomiting. denies: Constipation, Diarrhea : denies: Dysuria, Frequency Immunocompromised: denies: Immunocompromised PD PAST MEDICAL HISTORY - Past Medical History Past Medical History: Yes Cardiovascular: None Respiratory: None Endocrine/Autoimmune: Type 1 diabetes GI: Other : None HEENT: None Psych: None Musculoskeletal: None Derm: None - Past Surgical History Past Surgical History: No - Present Medications Home Medications: Ambulatory Orders Medication Instructions Recorded Confirmed Insulin Aspart [Novolog] 0 - 12 unit SUBQ TIDWM 04/15/15 01/31/18 Insulin Glargine,Hum.rec.anlog 40 unit SQ DAILY PM 12/30/17 01/31/18 [Basaglar Kwikpen U-100] Ondansetron Odt [Zofran Odt] 4 mg TL Q6H PRN #15 tablet 01/23/18 01/31/18 Omeprazole [PriLOSEC] 20 mg PO DAILY #14 capsule 03/08/18 Ondansetron Odt [Zofran] 4 mg TL Q6H PRN #14 tablet 03/08/18 - Allergies Allergies/Adverse Reactions: Allergies Allergy/AdvReac Type Severity Reaction Status Date / Time No Known Drug Allergies Allergy Verified 03/09/18 00:12 - Social History Does the pt smoke?: No Smoking Status: Never smoker Does the pt drink ETOH?: Yes Does the pt have substance abuse?: No - Immunizations Immunizations are current?: Yes - POLST Patient has POLST: No POLST Status: Full Code PD ED PE NORMAL - Vitals Vital signs reviewed: Yes - General General: Alert and oriented X 3 - Respiratory Respiratory: No respiratory distress - Derm Derm: Normal color, Warm and dry - Extremities Extremities: No deformity - Neuro 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, No motor deficit Eye Opening: Spontaneous - Psych Psych: Normal mood PD ED PE EXPANDED - General General: Alert - HEENT HEENT: Dry mucous membranes - Cardiac Cardiac: Tachy - Abdomen Abdomen: Tender to palpation, Epigastric. No: Rebound, Guarding Results - Vitals Vitals: Vital Signs - 24 hr 03/09/18 03/09/18 03/09/18 00:05 00:34 01:03 Temperature 36.6 C Heart Rate 139 H 133 H 120 H Respiratory 20 18 18 Rate Blood Pressure 132/85 H 130/90 H 100/60 O2 Saturation 100 100 100 03/09/18 01:35 Temperature Heart Rate 110 H Respiratory 15 Rate Blood Pressure 104/69 O2 Saturation 100 Oxygen O2 Source Room air - EKG (time done) 0022 Rate: Rate (enter#) (133) Rhythm: Sinus tachycardia [place]: Normal Intervals: Normal [place] Ischemia: ST depression, Other (rate related ischemia) - Labs Labs: Laboratory Tests 03/09/18 03/09/18 03/09/18 00:23 00:23 00:23 WBC 8.6 RBC 4.65 L Hgb 14.3 Hct 42.9 MCV 92.3 MCH 30.8 MCHC 33.4 RDW 13.2 Plt Count 255 MPV 8.4 Neut # (Auto) 6.9 H Lymph # (Auto) 1.4 L Wirt # (Auto) 0.3 Eos # (Auto) 0.0 Baso # (Auto) 0.0 Absolute Nucleated RBC 0.00 Nucleated RBC % 0.0 VBG pH VBG pCO2 VBG pO2 VBG HCO3 VBG Total CO2 VBG O2 Saturation VBG Base Excess Sodium Potassium Chloride Carbon Dioxide Anion Gap BUN Creatinine Estimated GFR (MDRD) Glucose POC Whole Bld Glucose Lactic Acid 1.5 Calcium Phosphorus 1.8 L Magnesium 2.0 Total Bilirubin AST ALT Alkaline Phosphatase Troponin I Total Protein Albumin Globulin Albumin/Globulin Ratio Serum Ketones MODERATE H 03/09/18 03/09/18 03/09/18 00:23 00:23 00:45 WBC RBC Hgb Hct MCV MCH MCHC RDW Plt Count MPV Neut # (Auto) Lymph # (Auto) Wirt # (Auto) Eos # (Auto) Baso # (Auto) Absolute Nucleated RBC Nucleated RBC % VBG pH 7.262 L VBG pCO2 26.6 L VBG pO2 174.8 H VBG HCO3 11.7 L VBG Total CO2 12.5 L VBG O2 Saturation 98.8 H VBG Base Excess -13.5 L Sodium 137 Potassium 3.8 Chloride 108 Carbon Dioxide 11 L* Anion Gap 18.0 H BUN 22 H Creatinine 0.6 Estimated GFR (MDRD) 174 Glucose 262 H POC Whole Bld Glucose Lactic Acid Calcium 9.5 Phosphorus Magnesium Total Bilirubin 1.4 H AST 15 ALT 14 Alkaline Phosphatase 82 Troponin I < 0.04 Total Protein 7.4 Albumin 3.8 Globulin 3.6 Albumin/Globulin Ratio 1.1 Serum Ketones 03/09/18 01:00 WBC RBC Hgb Hct MCV MCH MCHC RDW Plt Count MPV Neut # (Auto) Lymph # (Auto) Wirt # (Auto) Eos # (Auto) Baso # (Auto) Absolute Nucleated RBC Nucleated RBC % VBG pH VBG pCO2 VBG pO2 VBG HCO3 VBG Total CO2 VBG O2 Saturation VBG Base Excess Sodium Potassium Chloride Carbon Dioxide Anion Gap BUN Creatinine Estimated GFR (MDRD) Glucose POC Whole Bld Glucose 238 H Lactic Acid Calcium Phosphorus Magnesium Total Bilirubin AST ALT Alkaline Phosphatase Troponin I Total Protein Albumin Globulin Albumin/Globulin Ratio Serum Ketones PD MEDICAL DECISION MAKING - ED course Complexity details: reviewed old records, reviewed results, re-evaluated patient , considered differential, d/w patient, d/w skin care consultant ED course: Patient was seen and examined at bedside. IV access was gained and labs were drawn. Patient was started on a fluid bolus. ekg was performed and showed sinus tach with rate related ischemia. patient was treated with haldol, which has worked for the patient in the past and zofran. Patient's labs showed mild dka. patient was treated with another liter of fluid, potassium and started on an insulin drip. Hospitalist was contacted and the case was discussed with her. patient was placed in the ICU for further care. - Sepsis Event Vital Signs: Vital Signs - 24 hr 03/09/18 03/09/18 03/09/18 00:05 00:34 01:03 Temperature 36.6 C Heart Rate 139 H 133 H 120 H Respiratory 20 18 18 Rate Blood Pressure 132/85 H 130/90 H 100/60 O2 Saturation 100 100 100 06/13/18 01:35 Temperature Heart Rate 110 H Respiratory 15 Rate Blood Pressure 104/69 O2 Saturation 100 Oxygen O2 Source Room air Departure - Departure Disposition: 66 [facility] DC/Xfer Clinical Impression: DKA (diabetic ketoacidoses) Condition: Stable
[2018-03-09] MEDS ORDERED: ONDANSETRON ODT 4 MG TABLET TL PRN (01:31)
[2018-03-09] MEDS ORDERED: ACETAMINOPHEN 325 MG TABLET PO PRN (01:31)
[2018-03-09] MEDS ORDERED: HALOPERIDOL 5 MG/ML VIAL IVP PRN (01:38)
[2018-03-09] MEDS: SODIUM CHLORIDE FLUSH 0.9% 10 ML SYRINGE IVP PRN ×4 (02:58→13:38)
[2018-03-09] MEDS: SODIUM CHLORIDE 0.9% 1,000 ML IV SCH ×2 (02:58→08:17)
[2018-03-09] MEDS: INSULIN REGULAR HUMAN 100 UNIT in SODIUM CHLORIDE 0.9% 100ML 99 ML IV SCH (03:14)
[2018-03-09 03:47] LABS: VBG BASE EXCESS -13.4 mmol/L (-2 - +2); VBG PH 7.24 (7.31-7.41); VBG PO2 74.3 mmHg (25-47); VBG TOTAL CO2 13.5 mmol/L (24-29)
[2018-03-09 03:51] LABS: KETONES, SERUM (ACETEST) MODERATE (NEGATIVE)
[2018-03-09 03:53] LABS: BUN - BLOOD UREA NITROGEN 19 mg/dL (6-20); CALCIUM 8.1 mg/dL (8.5-10.3); CARBON DIOXIDE - CO2 13 mmol/L (21-32); CHLORIDE 114 mmol/L (101-111); CREATININE 0.5 mg/dL (0.6-1.2); GFR - MDRD 214 (>89); GLUCOSE 173 mg/dL (70-100); MAGNESIUM 1.8 mg/dL (1.7-2.8); SODIUM 136 mmol/L (135-145)
[2018-03-09 04:03] LABS: HB2 TOTAL 13.7 g/dL; HEMOGLOBIN A1C 1.7 g/dL; HEMOGLOBIN A1C % 13.5 % (4.6-6.2)
[2018-03-09] MEDS ORDERED: INSULIN GLARGINE 300 UNIT/3 ML PEN SUBQ SCH ×2 (05:00→09:00)
[2018-03-09 05:52] LABS: BASOPHILS % (AUTO) 0.5 %; HGB - HEMOGLOBIN 13.4 g/dL (14.0-18.0); LYMPHOCYTES # (AUTO) 1.7 10^3/uL (1.5-3.5); LYMPHOCYTES % (AUTO) 18.8 %; MEAN CORPUSCULAR HEMOGLOBIN 30.6 pg (27.0-31.0); MEAN CORPUSCULAR HGB CONC 33.2 g/dL (32.0-36.0); MEAN CORPUSCULAR VOLUME 92.2 fL (80.0-94.0); MEAN PLATELET VOLUME 8.4 fL (7.4-11.4); MONOCYTES # (AUTO) 0.3 10^3/uL (0.0-1.0); MONOCYTES % (AUTO) 3.2 %; NEUTROPHILS # (AUTO) 6.9 10^3/uL (1.5-6.6); NEUTROPHILS % (AUTO) 77.5 %; PLT - PLATELET COUNT 262 10^3/uL (130-450); RED BLOOD COUNT 4.39 10^6/uL (4.70-6.10); RED CELL DISTRIBUTION WIDTH 12.9 % (12.0-15.0); WHITE BLOOD COUNT 8.9 x10^3/uL (4.8-10.8)
[2018-03-09 06:11] LABS: MUDS CUTOFF CONCENTRATIONS CUTOFF CONC BELOW:
[2018-03-09] MEDS: PANTOPRAZOLE 40 MG VIAL IVP SCH (06:12)
[2018-03-09 06:14] LABS: BILIRUBIN,URINE NEGATIVE (NEGATIVE); GLUCOSE, URINE (UA) 500 mg/dL (NEGATIVE); KETONES,URINE (UA) >=80 mg/dL (NEGATIVE); LEUKOCYTE ESTERASE, URINE NEGATIVE (NEGATIVE); NITRITE,URINE NEGATIVE (NEGATIVE); OCCULT BLOOD,URINE NEGATIVE (NEGATIVE); PROTEIN,URINE NEGATIVE (NEGATIVE); UROBILINOGEN,URINE 0.2 (NORMAL) E.U./dL (NORMAL)
[2018-03-09 06:23] LABS: CALCIUM 8.3 mg/dL (8.5-10.3); CREATININE 0.5 mg/dL (0.6-1.2)
[2018-03-09 06:25] LABS: AMPHETAMINE SCREEN,URINE NEGATIVE (NEGATIVE); BENZODIAZEPINES SCREEN, URINE NEGATIVE (NEGATIVE); CLARITY,URINE CLEAR (CLEAR); COCAINE SCREEN URINE NEGATIVE (NEGATIVE); METHADONE SCREEN, URINE NEGATIVE (NEGATIVE); METHAMPHETAMINES SCREEN, URINE NEGATIVE (NEGATIVE); OPIATE SCREEN, URINE NEGATIVE (NEGATIVE); OXYCODONE SCREEN, URINE NEGATIVE (NEGATIVE); PROPOXYPHENE SCREEN, URINE NEGATIVE (NEGATIVE); TRICYCLIC ANTIDEPRESSANT,URINE NEGATIVE (NEGATIVE)
[2018-03-09 06:26] LABS: ALBUMIN 3.3 g/dL (3.2-5.5); PHOSPHORUS 1.9 mg/dL (2.5-4.6)
[2018-03-09] MEDS: ONDANSETRON 4 MG/2 ML VIAL IVP PRN ×2 (07:00→19:28)
[2018-03-09] MEDS: POLYETHYLENE GLYCOL 3350 17 GM PACKET PO SCH (08:16)
--- NOTE | 2018-03-09 09:08 | HISTORY & PHYSICAL EXAMINATION ---
DATE OF SERVICE: 03/09/2018 Physician: Antoinette Schmidt MD PRIMARY CARE PROVIDER: [facility]. ADMITTING PROVIDER: Antoinette Schmidt M.D. CHIEF COMPLAINT: Nausea, vomiting, generalized abdominal pain. HISTORY OF PRESENT ILLNESS: The patient is a frequent visitor to our emergency room for the complaints of nausea, vomiting, abdominal pain. He states that his DKA has nothing to do with that. He checks his sugars. He does not check his sugars on a regular basis. He did not check his sugars starting yesterday. He has been in the emergency room 01/29/2018, 01/31/2018, 03/07/2018 and then today. His last admission was 01/27/2018. Prior to that, his admission was 12/29/2017, 10/13/2017, 08/25/2017, 08/21/2017, 07/18/2017, 03/25/2017. He states that it is just too difficult for him to get to see his primary care provider in [facility]. He has transportation issues. Besides his aunt is also sick and he needs to bring her infrequently as well, so he tries to do a good job of taking care of his glucose levels, but is not successful. With this current incident, he states there is nothing new going on. There is no fever, no chills. He does not have any sore throat, ear pain. He denies any chest pain, coughing, shortness of breath. There is no change in bowel habits. He does not have any diarrhea. He has been told in the past that his nausea, vomiting, abdominal pain is because he has "an enlarged bladder" and has nothing to do with DKA. His abdominal pain is generalized. It is not associated with any sharp stabbing. It is more of a cramping sensation. Nothing makes it better and nothing really makes it worse. He was seen with the same complaints a day and a half ago, but at that time his lab work did not warrant admission. Today, his anion gap is high, carbon dioxide level low, and venous pH of 7.26. Ketones are moderate. PAST MEDICAL HISTORY 1. Type 1 diabetes mellitus, with complications, uncontrolled hyperglycemia, and complications of gastroparesis, peripheral neuropathy. 2. Chronic protein calorie malnutrition. 3. History of urinary tract infection. ALLERGIES: NONE. MEDICATIONS 1. NovoLog insulin before meals. 2. Lantus 40 units subcutaneous daily. 3. Prilosec 20 mg daily. 4. Zofran p.r.n. SOCIAL HISTORY: He is estranged from his mother. He lives with his aunt and a cousin. He uses cannabis frequently. He denies any history of cocaine, heroin, LSD, methamphetamines. He has not been able to graduate from high school. Sometimes, he works at [employer]. FAMILY HISTORY: Positive for type 2 diabetes mellitus. REVIEW OF SYSTEMS: He again tells me, "I just don't wanna talk to you anymore." He feels that this is the same as always and he does not understand why he has to repeat answering repeat questions, but he does deny any new pulmonary, cardiac, AUDIO DIRECTOR symptoms. PHYSICAL EXAMINATION GENERAL: He is a thin, gaunt, young white male who is alert, oriented to person, place and time. In order to avoid speaking to me, he pulls the blanket over his head. VITAL SIGNS: Temperature is 36.6. Pulse has gone from 139 to 110 with 2 liters of normal saline. Blood pressure was 132/85, now 104/69. Respirations 15 and unlabored, and he is 100% on room air. HEAD AND NECK: Remarkable for pupils that are reactive, sclerae are nonicteric. Oral mucosa is dry and parched. He has acne of the face. Neck is supple without goiter or bruits. LUNGS: Clear to auscultation and percussion. No crackles, rhonchi, or wheezing. No use of accessory muscles. HEART: PMI is normally placed, slightly tachycardic, regular rate and rhythm. No murmurs, rubs, or gallops. ABDOMEN: Soft, tender diffusely. Pain is rated at a 10/10. He has hypoactive bowel sounds. No rebound, no guarding. There is no distention. No masses. Again, generalized and diffuse. The patient is lying perfectly still. No peritoneal findings at all. EXTREMITIES: No clubbing, cyanosis or edema on extremity exam. NEUROLOGIC: He has quite a dense peripheral neuropathy around his feet, but no focal deficits. Cranial nerves appear intact with 1 not tested. No tremors. No confusion. PSYCHIATRIC: Affect is that of an emotionally withdrawn young white male. LABORATORY DATA: Sodium 137, potassium 3.8, anion gap 11, BUN 22, creatinine 0.6, glucose 262. Calcium 9.5, lactic acid 1.5, total bilirubin 1.4, phosphorus 1.8, magnesium 2. Troponin less than 0.04. White cell count is 8.6, hemoglobin 14.3, hematocrit 42.9. Venous pH is 7.262, pCO2 of 26. Base excess is -13.5. Moderate ketones on serum ketones. ASSESSMENT AND PLAN 1. Type 1 diabetic ketoacidosis. Plan Placed in observation. This patient usually turns around at less than 24 hours. ICU bed because of insulin drip. Insulin drip at 2 units per hour because of relatively low glucose in spite of high anion gap and ketosis. Supplement electrolytes, phosphorus, magnesium as needed with ICU placement protocol. Keep n.p.o. until off insulin drip. Check urine tox screen. ATTESTATION: The patient will be admitted less than 96 hours. 2. Noncompliance with medical program. I attempted to at least elicit some idea of what is going on with his home life, access to care, and did not get much per him other than sharing with me that it is hard for him to get to his doctor's appointments in [place], he had no history to offer me with regard to what was going on that he could not take his insulin or check his sugars on a regular basis. 3. Nausea, vomiting, abdominal pain, intractable. I have reemphasized to him that I will use Haldol, Phenergan, ibuprofen with sips of water, Tylenol with sips of water, but I will be avoiding the use of opiates to control his pain. 4. Deep venous thrombosis prophylaxis will be ENEIDA castillo. 5. FULL CODE STATUS. TD: 03/09/2018 02:18
[2018-03-09] MEDS: SODIUM CHLORIDE FLUSH 0.9% 10 ML SYRINGE IVP SCH ×2 (09:48→16:39)
[2018-03-09] MEDS: METOCLOPRAMIDE 10 MG/2 ML VIAL IVP PRN (11:16)
[2018-03-09] MEDS: ACETAMINOPHEN 1,000 MG/100 ML 100 ML IV PRN (11:47)
[2018-03-09] MEDS ORDERED: INSULIN ASPART 300 UNIT/3 ML PEN SUBQ SCH (12:00)
[2018-03-09] MEDS ORDERED: D5NS W/20 MEQ KCL 1,000 ML IV STA (12:49)
--- NOTE | 2018-03-09 15:22 | PROVIDER PROGRESS NOTE ---
Hospitalist Cross-cover Note - Cross-Cover Note Cross-Cover Note: The patient was unable to tolerate solid food due to abdominal mahmood and nausea. Reglan was added. Diet was reversed to clear liquids. Serum ketones went from Small to Moderate. Pt was put back on Insulin drip at 1 U/hr with POC glu checks and serum ketone checks q2h.
[2018-03-09] MEDS ORDERED: POTASSIUM PHOSPHATE 15 MMOL in SODIUM CHLORIDE 0.9% 250 ML IV ONE (15:26)
[2018-03-09] MEDS: MAG HYDROX/AL HYDROX/SIMETH 30 ML UDC PO PRN ×2 (15:49→23:12)
[2018-03-09 16:02] LABS: VBG BASE EXCESS -19.3 mmol/L (-2 - +2); VBG PCO2 16.6 mmHg (41-51); VBG PH 7.201 (7.31-7.41); VBG PO2 77.3 mmHg (25-47); VBG TOTAL CO2 6.9 mmol/L (24-29)
[2018-03-10] MEDS: SODIUM CHLORIDE FLUSH 0.9% 10 ML SYRINGE IVP SCH ×3 (01:33→18:46)
[2018-03-10 05:15] LABS: MAGNESIUM 2.1 mg/dL (1.7-2.8); PHOSPHORUS 1.4 mg/dL (2.5-4.6)
[2018-03-10 05:55] LABS: HEMOGLOBIN A1C 1.74 g/dL; HEMOGLOBIN A1C % 13.5 % (4.6-6.2)
[2018-03-10] MEDS: PANTOPRAZOLE 40 MG VIAL IVP SCH (06:28)
[2018-03-10] MEDS: POLYETHYLENE GLYCOL 3350 17 GM PACKET PO SCH (08:59)
[2018-03-10] MEDS ORDERED: POTASSIUM PHOSPHATE 15 MMOL in SODIUM CHLORIDE 0.9% 250 ML IV SCH (10:00)
[2018-03-10] MEDS: POTASSIUM PHOSPHATE 15 MMOL in SODIUM CHLORIDE 0.9% 250 ML IV SCH ×4 (10:30→23:51)
[2018-03-10] MEDS ORDERED: SODIUM CHLORIDE 0.9% MINIBAG 100 ML IV ONE (11:56)
[2018-03-10] MEDS: ONDANSETRON 4 MG/2 ML VIAL IVP PRN (12:33)
[2018-03-10] MEDS: MAG HYDROX/AL HYDROX/SIMETH 30 ML UDC PO PRN ×2 (12:35→19:32)
[2018-03-10] MEDS: ACETAMINOPHEN 1,000 MG/100 ML 100 ML IV PRN (12:35)
--- NOTE | 2018-03-10 13:56 | PROVIDER PROGRESS NOTE ---
Assessment/Plan - Problem List (1) DKA (diabetic ketoacidoses) Assessment/Plan: Still has lingering SMALL serum ketones. Continue DKA protocol with iv Insulin drip, iv D5NS with Kcl and serum glu and ketone checks. Pt will be moved from OBS status to inpatient status. (2) Diabetic gastroparesis Assessment/Plan: Will back off to pureed foods and continue antiemetics and pain meds. Will make Metoclopramide liquid scheduled before meals. (3) Abdominal pain Qualifiers: Assessment/Plan: If bowel rest does not improve symptoms, will order imaging of abdomen. (4) Hypokalemia Assessment/Plan: Replace K. Follow BMP. (5) Hypophosphatemia Assessment/Plan: Replace Phos. Follow labs. (6) Noncompliance with diabetes treatment Assessment/Plan: I discussed outpt care that is needed and was set up for Pt in [place], and that his aunt has agrred to take him, but he has never shown up. Pt did not explain why. - Current Meds Current Meds: Current Medications Generic Name Dose Route Start Last Admin Trade Name Freq PRN Reason Stop Dose Admin Acetaminophen 650 mg 03/09/18 01:31 03/09/18 05:42 Tylenol PO 650 mg Q4HR PRN Administration Pain 1 to 4 Al Hydroxide/Mg Hydroxide 30 ml 03/09/18 15:34 03/10/18 12:35 Mylanta Plus PO 30 ml Q4HR PRN Administration INDIGESTION Insulin Human Regular 100 unit 100 mls @ 4.98 mls/hr 03/09/18 01:34 03/10/18 13:00 / Sodium Chloride IV 0.02 unit/kg/hr .Q20H5M SHEILA 1 mls/hr Protocol Titration 0.1 UNIT/KG/HR Acetaminophen 100 mls @ 400 mls/hr 03/09/18 11:33 03/10/18 12:55 Ofirmev IV Infused Q6HR PRN Infusion PAIN Potassium Phosphate 15 mmol/ 255 mls @ 63.75 mls/hr 03/10/18 11:00 03/10/18 13:00 Sodium Chloride IV 03/11/18 10:59 63.75 mls/hr Q4H SHEILA Infusion Metoclopramide HCl 5 mg 03/09/18 10:53 03/09/18 11:16 Reglan Inj IVP 5 mg Q6HR PRN Administration Nausea / Vomiting Ondansetron HCl 4 mg 03/09/18 01:31 03/10/18 12:33 Zofran Inj IVP 4 mg Q6HR PRN Administration Nausea / Vomiting Pantoprazole Sodium 40 mg 03/09/18 07:00 03/10/18 06:28 Protonix IVP 40 mg QDAC SHEILA Administration Polyethylene Glycol 17 gm 03/09/18 09:00 03/10/18 08:59 Miralax PO 17 gm DAILY SHEILA Administration Sodium Chloride 10 ml 03/09/18 01:31 03/09/18 13:38 Normal Saline Flush 0.9% IVP 10 ml PRN PRN Administration NEEDED PER PROVIDER ORDERS Sodium Chloride 10 ml 03/09/18 09:00 03/10/18 06:29 Normal Saline Flush 0.9% IVP 10 ml 0100,0900,1700 SHEILA Administration - Lab Result Fish Bone Diagrams: 03/09/18 05:29 03/10/18 14:46 - Additional Planning My Orders: My Active Orders 03/09/18 15:34 Mag Hydrox/Al Hydrox/Simeth [Mylanta Plus] 30 ml PO Q4HR PRN 03/10/18 11:00 Potassium Phosphate 15 mmol Sodium Chloride 0.9% [Normal Saline 0.9%] 250 ml IV Q4H 03/10/18 15:00 BMP - BASIC METABOLIC PANEL [CHEM] Timed KETONES, SERUM (ACETEST) [CHEM] Timed 03/10/18 Dinner DIET [Carb-controlled Diet] [DIET] Subjective - Subjective Patient Reports: Feeling Better, Other (After pureed breakfast, he felt OK and asked for solids. He had solids for lunch and developed his epigastric pain with nausea again.) Nursing Reports: Other (Able to eat food without abdominal pain, sittting up in a chair without pain or nausea) Objective Vital Signs: Vital Signs - 24 hr 03/09/18 03/09/18 03/09/18 14:00 15:42 16:00 Temperature 36.8 C Heart Rate [ 130 H 134 H 121 H Monitoring electrodes] Respiratory 19 16 Rate Blood Pressure 112/62 118/61 95/49 L [Left Brachial artery] O2 Saturation 99 99 03/09/18 03/09/18 03/09/18 17:00 17:07 18:00 Temperature Heart Rate [ 124 H 124 H Monitoring electrodes] Respiratory 17 17 Rate Blood Pressure 91/52 L 96/50 L 102/65 [Left Brachial artery] O2 Saturation 99 100 03/09/18 03/09/18 03/09/18 19:00 20:00 21:00 Temperature Heart Rate [ 114 H 110 H 115 H Monitoring electrodes] Respiratory 15 16 16 Rate Blood Pressure 106/56 L 112/69 115/67 [Left Brachial artery] O2 Saturation 99 100 100 03/09/18 03/09/18 03/10/18 22:00 23:00 00:00 Temperature Heart Rate [ 108 H 118 H 110 H Monitoring electrodes] Respiratory 15 17 16 Rate Blood Pressure 106/58 L 118/72 117/71 [Left Brachial artery] O2 Saturation 99 100 99 03/10/18 03/10/18 03/10/18 01:00 02:00 03:00 Temperature Heart Rate [ 101 H 101 H 101 H Monitoring electrodes] Respiratory 16 15 29 H Rate Blood Pressure 112/76 105/67 108/67 [Left Brachial artery] O2 Saturation 99 100 100 03/10/18 03/10/18 03/10/18 04:00 05:00 06:00 Temperature 36.9 C Heart Rate [ 101 H 101 H 102 H Monitoring electrodes] Respiratory 16 16 16 Rate Blood Pressure 112/74 115/80 115/80 [Left Brachial artery] O2 Saturation 99 100 99 03/10/18 03/10/18 03/10/18 07:00 08:00 09:00 Temperature 36.9 C Heart Rate [ 98 95 95 Monitoring electrodes] Respiratory 16 15 21 Rate Blood Pressure 116/84 H 114/82 H 117/82 H [Left Brachial artery] O2 Saturation 100 100 100 03/10/18 03/10/18 03/10/18 10:00 11:00 12:00 Temperature 36.6 C Heart Rate [ 105 H 98 102 H Monitoring electrodes] Respiratory 14 13 11 L Rate Blood Pressure 116/84 H 116/80 111/80 [Left Brachial artery] O2 Saturation 100 100 99 Oxygen O2 Source Room air I&O (Last 24 Hrs): Intake and Output Totals x24h 03/08/18 03/09/18 03/10/18 23:59 23:59 23:59 Intake Total 5473.447 453.375 Output Total 3700 450 Balance 1773.447 3.375 General: Alert, Oriented x3 HEENT: Mucous membr. moist/pink Neck: Supple Neuro: Non Focal Cardiovascular: No murmurs Respiratory: No respiratory distress Abdomen: Soft, No tenderness Extremities: No edema, Other (Muscle wasting) - Results Results: Laboratory Results WBC 8.9 x10^3/uL (4.8-10.8) 03/09/18 05:29 RBC 4.39 10^6/uL (4.70-6.10) L 03/09/18 05:29 Hgb 13.4 g/dL (14.0-18.0) L 03/09/18 05:29 Hct 40.5 % (42.0-52.0) L 03/09/18 05:29 MCV 92.2 fL (80.0-94.0) 03/09/18 05:29 MCH 30.6 pg (27.0-31.0) 03/09/18 05: MCHC 33.2 g/dL (32.0-36.0) 03/09/18 05:29 RDW 12.9 % (12.0-15.0) 03/09/18 05:29 Plt Count 262 10^3/uL (130-450) 03/09/18 05:29 MPV 8.4 fL (7.4-11.4) 03/09/18 05:29 Neut # (Auto) 6.9 10^3/uL (1.5-6.6) H 03/09/18 05:29 Lymph # (Auto) 1.7 10^3/uL (1.5-3.5) 03/09/18 05:29 Brown # (Auto) 0.3 10^3/uL (0.0-1.0) 03/09/18 05:29 Eos # (Auto) 0.0 10^3/uL (0.0-0.7) 03/09/18 05:29 Baso # (Auto) 0.0 10^3/uL (0.0-0.1) 03/09/18 05:29 Absolute Nucleated RBC 0.00 x10^3/uL 03/09/18 05:29 Nucleated RBC % 0.0 /100WBC 03/09/18 05:29 VBG pH 7.201 (7.31-7.41) L 03/09/18 15:54 VBG pCO2 16.6 mmHg (41-51) L 03/09/18 15:54 VBG pO2 77.3 mmHg (25-47) H 03/09/18 15:54 VBG HCO3 6.4 mmol/L (23-28) L 03/09/18 15:54 VBG Total CO2 6.9 mmol/L (24-29) L 03/09/18 15:54 VBG O2 Saturation 95.5 % (60-80) H 03/09/18 15:54 VBG Base Excess -19.3 mmol/L (-2 - +2) L 03/09/18 15:54 Sodium 137 mmol/L (135-145) 03/09/18 06:08 Potassium 3.8 mmol/L (3.5-5.0) 03/09/18 06:08 Chloride 112 mmol/L (101-111) H 03/09/18 06:08 Carbon Dioxide 13 mmol/L (21-32) L 03/09/18 06:08 Anion Gap 12.0 (6-13) 03/09/18 06:08 BUN 16 mg/dL (6-20) 03/09/18 06:08 Creatinine 0.5 mg/dL (0.6-1.2) L 03/09/18 06:08 Estimated GFR (MDRD) 214 (>89) 03/09/18 06:08 Glucose 147 mg/dL (70-100) H 03/09/18 06:08 POC Whole Bld Glucose 159 mg/dL (70 - 100) H 03/10/18 12:05 Glycated Hemoglobin 13.5 % (4.6-6.2) H 03/10/18 04:30 Estim Average Glucose 341 (70-100) H 03/10/18 04:30 Lactic Acid 1.5 mmol/L (0.5-2.2) 03/09/18 00:23 Calcium 8.3 mg/dL (8.5-10.3) L 03/09/18 06:08 Phosphorus 1.4 mg/dL (2.5-4.6) L 03/10/18 04:30 Magnesium 2.1 mg/dL (1.7-2.8) 03/10/18 04:30 Total Bilirubin 1.4 mg/dL (0.2-1.0) H 03/09/18 00:23 AST 15 IU/L (10-42) 03/09/18 00:23 ALT 14 IU/L (10-60) 03/09/18 00:23 Alkaline Phosphatase 82 IU/L (42-121) 03/09/18 00:23 Troponin I < 0.04 ng/mL (<0.49) 03/09/18 00:45 Total Protein 7.4 g/dL (6.7-8.2) 03/09/18 00:23 Albumin 3.3 g/dL (3.2-5.5) 03/09/18 06:08 Globulin 3.6 g/dL (2.1-4.2) 03/09/18 00:23 Albumin/Globulin Ratio 1.1 (1.0-2.2) 03/09/18 00:23 Urine Color YELLOW 03/09/18 05:39 Urine Clarity CLEAR (CLEAR) 03/09/18 05:39 Urine pH 6.0 PH (5.0-7.5) 03/09/18 05:39 Ur Specific [place] 1.025 (1.002-1.030) 03/09/18 05:39 Urine Protein NEGATIVE mg/dL (NEGATIVE) 03/09/18 05:39 Urine Glucose (UA) 500 mg/dL (NEGATIVE) H 03/09/18 05:39 Urine Ketones >=80 mg/dL (NEGATIVE) H 03/09/18 05:39 Urine Occult Blood NEGATIVE (NEGATIVE) 03/09/18 05:39 Urine Nitrite NEGATIVE (NEGATIVE) 03/09/18 05:39 Urine Bilirubin NEGATIVE (NEGATIVE) 03/09/18 05:39 Urine Urobilinogen 0.2 (NORMAL) E.U./dL (NORMAL) 03/09/18 05:39 Ur Leukocyte Esterase NEGATIVE (NEGATIVE) 03/09/18 05:39 Ur Microscopic Review NOT INDICATED 03/09/18 05:39 Urine Culture Comments NOT INDICATED 03/09/18 05:39 Urine Opiates Screen NEGATIVE (NEGATIVE) 03/09/18 05:39 Ur Oxycodone Screen NEGATIVE (NEGATIVE) 03/09/18 05:39 Urine Methadone Screen NEGATIVE (NEGATIVE) 03/09/18 05:39 Ur Propoxyphene Screen NEGATIVE (NEGATIVE) 03/09/18 05:39 Ur Barbiturates Screen NEGATIVE (NEGATIVE) 03/09/18 05:39 Ur Tricyclics Screen NEGATIVE (NEGATIVE) 03/09/18 05:39 Ur Phencyclidine Scrn NEGATIVE (NEGATIVE) 03/09/18 05:39 Ur Amphetamine Screen NEGATIVE (NEGATIVE) 03/09/18 05:39 U Methamphetamines Scrn NEGATIVE (NEGATIVE) 03/09/18 05:39 U Benzodiazepines Scrn NEGATIVE (NEGATIVE) 03/09/18 05:39 Urine Cocaine Screen NEGATIVE (NEGATIVE) 03/09/18 05:39 U Cannabinoids Screen NEGATIVE (NEGATIVE) 03/09/18 05:39 Serum Ketones SMALL (NEGATIVE) H 03/10/18 04:30 ABX Reporting Has patient been on IV antibiotics over the past 48 hours?: No
[2018-03-10] MEDS: METOCLOPRAMIDE 10 MG/2 ML VIAL IVP PRN (14:30)
[2018-03-10 15:06] LABS: CALCIUM 8.2 mg/dL (8.5-10.3); CREATININE 0.5 mg/dL (0.6-1.2)
[2018-03-10] MEDS: INSULIN REGULAR HUMAN 100 UNIT in SODIUM CHLORIDE 0.9% 100ML 99 ML IV SCH (16:00)
[2018-03-10] MEDS: HYDROmorphone 1 MG/ML SYRINGE IVP PRN (17:43)
[2018-03-10] MEDS: METOCLOPRAMIDE 10 MG TABLET PO SCH ×2 (19:01→20:59)
[2018-03-11] MEDS: SODIUM CHLORIDE FLUSH 0.9% 10 ML SYRINGE IVP SCH ×4 (01:09→17:00)
[2018-03-11] MEDS: POTASSIUM PHOSPHATE 15 MMOL in SODIUM CHLORIDE 0.9% 250 ML IV SCH ×2 (04:11→09:38)
[2018-03-11 05:19] LABS: EOSINOPHILS % (AUTO) 0.4 %; HGB - HEMOGLOBIN 13.5 g/dL (14.0-18.0); LYMPHOCYTES # (AUTO) 1.6 10^3/uL (1.5-3.5); LYMPHOCYTES % (AUTO) 34.7 %; MEAN CORPUSCULAR HEMOGLOBIN 30.9 pg (27.0-31.0); MEAN CORPUSCULAR HGB CONC 34.2 g/dL (32.0-36.0); MEAN CORPUSCULAR VOLUME 90.3 fL (80.0-94.0); MEAN PLATELET VOLUME 7.9 fL (7.4-11.4); MONOCYTES # (AUTO) 0.4 10^3/uL (0.0-1.0); MONOCYTES % (AUTO) 8.9 %; NEUTROPHILS # (AUTO) 2.5 10^3/uL (1.5-6.6); PLT - PLATELET COUNT 229 10^3/uL (130-450); RED BLOOD COUNT 4.36 10^6/uL (4.70-6.10); RED CELL DISTRIBUTION WIDTH 12.4 % (12.0-15.0); WHITE BLOOD COUNT 4.6 x10^3/uL (4.8-10.8)
[2018-03-11 05:20] LABS: BUN - BLOOD UREA NITROGEN 11 mg/dL (6-20); CALCIUM 8.4 mg/dL (8.5-10.3); CARBON DIOXIDE - CO2 21 mmol/L (21-32); CHLORIDE 106 mmol/L (101-111); CREATININE 0.4 mg/dL (0.6-1.2); GFR - MDRD 277 (>89); GLUCOSE 138 mg/dL (70-100); SODIUM 135 mmol/L (135-145)
[2018-03-11] MEDS ORDERED: POTASSIUM CHLORIDE 20 MEQ TABLET PO ONE (05:28)
[2018-03-11] MEDS: PANTOPRAZOLE 40 MG VIAL IVP SCH (06:21)
[2018-03-11] MEDS: METOCLOPRAMIDE 10 MG TABLET PO SCH ×4 (06:21→21:07)
[2018-03-11 06:24] LABS: KETONES, SERUM (ACETEST) SMALL (NEGATIVE)
[2018-03-11] MEDS: D5.45NS W/20 MEQ KCL 1,000 ML IV SCH ×2 (06:53→14:55)
[2018-03-11 07:46] LABS: HB2 TOTAL 14.7 g/dL; HEMOGLOBIN A1C 1.73 g/dL; HEMOGLOBIN A1C % 12.9 % (4.6-6.2)
[2018-03-11] MEDS: INSULIN ASPART 300 UNIT/3 ML PEN SUBQ SCH ×4 (08:09→21:07)
[2018-03-11] MEDS: HYDROmorphone 1 MG/ML SYRINGE IVP PRN ×3 (08:15→20:11)
[2018-03-11] MEDS: POLYETHYLENE GLYCOL 3350 17 GM PACKET PO SCH (09:09)
[2018-03-11] MEDS ORDERED: POTASSIUM CHLORIDE 20 MEQ/15 ML UDC PO SCH (10:00)
[2018-03-11] MEDS: POTASSIUM CHLOR 10 MEQ/100 ML 10 MEQ/100 ML BAG IV SCH ×3 (12:30→14:50)
[2018-03-11] MEDS ORDERED: IOPAMIDOL-300 100 ML VIAL ONE (15:38)
[2018-03-11] MEDS ORDERED: IOPAMIDOL-300 100 ML VIAL IVP ONE (15:53)
--- NOTE | 2018-03-11 15:53 | PROVIDER PROGRESS NOTE ---
Assessment/Plan - Problem List (1) DKA (diabetic ketoacidoses) Assessment/Plan: Still had small ketones but was changed to Lantus and ss Insulin last night by [employer]. Will continue iv hydration with D5NS with KCl while he is taking poor po intake , and cover with ss Insulin. Pt was seen by edge runner Cecelia, who obtained the following History: Patient only uses his Lantus Insulin, no Regular. His weight has been dropping since he cannot eat from epigastric pain. (2) Diabetic gastroparesis Assessment/Plan: Pt was seen by edge runner Cecelia, who obtained the following History: He had a gastric emptying study in Sep that was normal. His weight has been dropping since he cannot eat from epigastric pain. Will continue scheduled Reglan pre-meals and continue pureed diet. Will order CT imaging of abdomen and ask for surgery consult for EGD and any other recommendations. I spoke to Dr Christoph Perez. (3) Abdominal pain Qualifiers: Assessment/Plan: Pt was seen by edge runner Cecelia, who obtained the following History: He had a gastric emptying study in Sep that was normal. His weight has been dropping since he cannot eat from epigastric pain. Will order CT imaging of abdomen and ask for surgery consult for EGD and any other recommendations. I spoke to Dr Christoph Perez. (4) Hypokalemia Assessment/Plan: K still low and Pt could not tolerate the taste of liquid KCl, pill form of KCl is contraindicated with gastroparesis. Will give K iv riders. Monitor labs daily. (5) Hypophosphatemia Assessment/Plan: Resolved with iv replacement. (6) Noncompliance with diabetes treatment Assessment/Plan: The edge runner and I and the Rn X Ray have spoken to Pt about importance of following instructions and keeping appointment. His outpt appt at [facility] was rescheduled for next week. - Current Meds Current Meds: Current Medications Generic Name Dose Route Start Last Admin Trade Name Freq PRN Reason Stop Dose Admin Acetaminophen 650 mg 03/09/18 01:31 03/09/18 05:42 Tylenol PO 650 mg Q4HR PRN Administration Pain 1 to 4 Al Hydroxide/Mg Hydroxide 30 ml 03/09/18 15:34 03/10/18 19:32 Mylanta Plus PO 30 ml Q4HR PRN Administration INDIGESTION Hydromorphone HCl 1 mg 03/10/18 18:00 03/11/18 08:15 Dilaudid Inj Syringe IVP 1 mg Q4HR PRN Administration SEVERE PAIN Acetaminophen 100 mls @ 400 mls/hr 03/09/18 11:33 03/10/18 12:55 Ofirmev IV Infused Q6HR PRN Infusion PAIN Potassium Chloride/Dextrose/Sod Cl 1,000 mls @ 125 mls/hr 03/11/18 07:00 15:25 D5.45ns W/20 Meq Kcl IV 0 mls/hr .Q8H SHEILA Infusion Potassium Chloride 10 meq in 100 mls @ 100 mls/hr 03/11/18 13:00 03/11/18 15: 25 Potassium Chloride IV 03/11/18 15:59 0 mls/hr Q1H SHEILA Infusion Insulin Aspart 1 - 9 unit 03/11/18 08:00 03/11/18 11:52 Novolog SUBQ 9 unit 0800,1200,1700,2100 SHEILA Administration Protocol Metoclopramide HCl 5 mg 03/09/18 10:53 03/10/18 14:30 Reglan Inj IVP 5 mg Q6HR PRN Administration Nausea / Vomiting Metoclopramide HCl 10 mg 03/10/18 19:00 03/11/18 11:15 Reglan PO 10 mg ACHS SHEILA Administration Ondansetron HCl 4 mg 03/09/18 01:31 03/10/18 12:33 Zofran Inj IVP 4 mg Q6HR PRN Administration Nausea / Vomiting Pantoprazole Sodium 40 mg 03/09/18 07:00 03/11/18 06:21 Protonix IVP 40 mg QDAC SHEILA Administration Polyethylene Glycol 17 gm 03/09/18 09:00 03/11/18 09:09 Miralax PO Not Given DAILY SHEILA Sodium Chloride 10 ml 03/09/18 01:31 03/09/18 13:38 Normal Saline Flush 0.9% IVP 10 ml PRN PRN Administration NEEDED PER PROVIDER ORDERS Sodium Chloride 10 ml 03/09/18 09:00 03/11/18 09:25 Normal Saline Flush 0.9% IVP 10 ml 0100,0900,1700 SHEILA Administration - Lab Result Fish Bone Diagrams: 03/11/18 04:35 03/11/18 04:35 - Additional Planning My Orders: My Active Orders 03/10/18 18:00 HYDROmorphone INJ SYRINGE [Dilaudid Inj Syringe] 1 mg IVP Q4HR PRN 03/10/18 19:00 Metoclopramide [Reglan] 10 mg PO ACHS 03/10/18 Dinner DIET [Dysphagia Puree Diet] [DIET] 03/11/18 Consult [General Surgery Consult] [CONS] Routine 03/11/18 13:00 Potassium Chlor 10 Meq/100 ml [Potassium Chloride] 10 meq in 100 ml IV Q1H 03/11/18 15:19 Abdomen W/ [CT] Routine 03/11/18 18:00 BMP - BASIC METABOLIC PANEL [CHEM] Timed KETONES, SERUM (ACETEST) [CHEM] Timed 03/12/18 05:00 BMP - BASIC METABOLIC PANEL [CHEM] DAILYLAB 03/13/18 05:00 BMP - BASIC METABOLIC PANEL [CHEM] DAILYLAB Subjective - Subjective Patient Reports: Feeling Better Nursing Reports: Other (Refusing food because it "causes epigasrtic pain".) Objective Vital Signs: Vital Signs - 24 hr 03/10/18 03/10/18 03/11/18 16:00 20:40 00:18 Temperature 37.1 C 36.2 C L 36.4 C L Heart Rate [ 116 H 104 H 103 H Monitoring electrodes] Respiratory 15 13 18 Rate Blood Pressure 131/92 H 101/66 115/76 [Left Brachial artery] O2 Saturation 100 99 99 03/11/18 03/11/18 03/11/18 04:12 07:37 12:21 Temperature 36.3 C L 36.7 C Heart Rate [ 95 91 97 Monitoring electrodes] Respiratory 11 L 12 14 Rate Blood Pressure 118/84 H 118/84 H 104/69 [Left Brachial artery] O2 Saturation 100 100 100 Oxygen O2 Source Room air I&O (Last 24 Hrs): Intake and Output Totals x24h 03/09/18 03/10/18 03/11/18 23:59 23:59 23:59 Intake Total 188.412 4188.833 Output Total 50 Balance 383.060 9998.833 General: Alert, Oriented x3 HEENT: Mucous membr. moist/pink Neck: Supple Neuro: Non Focal Cardiovascular: Regular rate, No murmurs Respiratory: No respiratory distress, Breath sounds nml Abdomen: Normal bowel sounds, Soft, No tenderness, No masses Extremities: No edema - Results Results: Laboratory Results WBC 4.6 x10^3/uL (4.8-10.8) L 03/11/18 04:35 RBC 4.36 10^6/uL (4.70-6.10) L 03/11/18 04:35 Hgb 13.5 g/dL (14.0-18.0) L 03/11/18 04:35 Hct 39.4 % (42.0-52.0) L 03/11/18 04:35 MCV 90.3 fL (80.0-94.0) 03/11/18 04:35 MCH 30.9 pg (27.0-31.0) 03/11/18 04:35 MCHC 34.2 g/dL (32.0-36.0) 03/11/18 04:35 RDW 12.4 % (12.0-15.0) 03/11/18 04:35 Plt Count 229 10^3/uL (130-450) 03/11/18 04:35 MPV 7.9 fL (7.4-11.4) 03/11/18 04:35 Neut # (Auto) 2.5 10^3/uL (1.5-6.6) 03/11/18 04:35 Lymph # (Auto) 1.6 10^3/uL (1.5-3.5) 03/11/18 04:35 [place] # (Auto) 0.4 10^3/uL (0.0-1.0) 03/11/18 04:35 Eos # (Auto) 0.0 10^3/uL (0.0-0.7) 03/11/18 04:35 Baso # (Auto) 0.0 10^3/uL (0.0-0.1) 03/11/18 04:35 Absolute Nucleated RBC 0.00 x10^3/uL 03/11/18 04:35 Nucleated RBC % 0.0 /100WBC 03/11/18 04:35 VBG pH 7.201 (7.31-7.41) L 03/09/18 15:54 VBG pCO2 16.6 mmHg (41-51) L 03/09/18 15:54 VBG pO2 77.3 mmHg (25-47) H 03/09/18 15:54 VBG HCO3 6.4 mmol/L (23-28) L 03/09/18 15:54 VBG Total CO2 6.9 mmol/L (24-29) L 03/09/18 15:54 VBG O2 Saturation 95.5 % (60-80) H 03/09/18 15:54 VBG Base Excess -19.3 mmol/L (-2 - +2) L 03/09/18 15:54 Sodium 135 mmol/L (135-145) 03/11/18 04:35 Potassium 3.4 mmol/L (3.5-5.0) L 03/11/18 04:35 Chloride 106 mmol/L (101-111) 03/11/18 04:35 Carbon Dioxide 21 mmol/L (21-32) 03/11/18 04:35 Anion Gap 8.0 (6-13) 03/11/18 04:35 BUN 11 mg/dL (6-20) 03/11/18 04:35 Creatinine 0.4 mg/dL (0.6-1.2) L 03/11/18 04:35 Estimated GFR (MDRD) 277 (>89) 03/11/18 04:35 Glucose 138 mg/dL (70-100) H 03/11/18 04:35 POC Whole Bld Glucose 354 mg/dL (70 - 100) H 03/11/18 11:45 Glycated Hemoglobin 12.9 % (4.6-6.2) H 03/11/18 04:35 Estim Average Glucose 324 (70-100) H 03/11/18 04:35 Lactic Acid 1.5 mmol/L (0.5-2.2) 03/09/18 00:23 Calcium 8.4 mg/dL (8.5-10.3) L 03/11/18 04:35 Phosphorus 3.0 mg/dL (2.5-4.6) 03/11/18 04:35 Magnesium 2.0 mg/dL (1.7-2.8) 03/11/18 04:35 Total Bilirubin 1.4 mg/dL (0.2-1.0) H 03/09/18 00:23 AST 15 IU/L (10-42) 03/09/18 00:23 ALT 14 IU/L (10-60) 03/09/18 00:23 Alkaline Phosphatase 82 IU/L (42-121) 03/09/18 00:23 Troponin I < 0.04 ng/mL (<0.49) 03/09/18 00:45 Total Protein 7.4 g/dL (6.7-8.2) 03/09/18 00:23 Albumin 3.3 g/dL (3.2-5.5) 03/09/18 06:08 Globulin 3.6 g/dL (2.1-4.2) 03/09/18 00:23 Albumin/Globulin Ratio 1.1 (1.0-2.2) 03/09/18 00:23 Urine Color YELLOW 03/09/18 05:39 Urine Clarity CLEAR (CLEAR) 03/09/18 05:39 Urine pH 6.0 PH (5.0-7.5) 03/09/18 05:39 Ur Specific [place] 1.025 (1.002-1.030) 03/09/18 05:39 Urine Protein NEGATIVE mg/dL (NEGATIVE) 03/09/18 05:39 Urine Glucose (UA) 500 mg/dL (NEGATIVE) H 03/09/18 05:39 Urine Ketones >=80 mg/dL (NEGATIVE) H 03/09/18 05:39 Urine Occult Blood NEGATIVE (NEGATIVE) 03/09/18 05:39 Urine Nitrite NEGATIVE (NEGATIVE) 03/09/18 05:39 Urine Bilirubin NEGATIVE (NEGATIVE) 03/09/18 05:39 Urine Urobilinogen 0.2 (NORMAL) E.U./dL (NORMAL) 03/09/18 05:39 Ur Leukocyte Esterase NEGATIVE (NEGATIVE) 03/09/18 05:39 Ur Microscopic Review NOT INDICATED 03/09/18 05:39 Urine Culture Comments NOT INDICATED 03/09/18 05:39 Urine Opiates Screen NEGATIVE (NEGATIVE) 03/09/18 05:39 Ur Oxycodone Screen NEGATIVE (NEGATIVE) 03/09/18 05:39 Urine Methadone Screen NEGATIVE (NEGATIVE) 03/09/18 05:39 Ur Propoxyphene Screen NEGATIVE (NEGATIVE) 03/09/18 05:39 Ur Barbiturates Screen NEGATIVE (NEGATIVE) 03/09/18 05:39 Ur Tricyclics Screen NEGATIVE (NEGATIVE) 03/09/18 05:39 Ur Phencyclidine Scrn NEGATIVE (NEGATIVE) 03/09/18 05:39 Ur Amphetamine Screen NEGATIVE (NEGATIVE) 03/09/18 05:39 U Methamphetamines Scrn NEGATIVE (NEGATIVE) 03/09/18 05:39 U Benzodiazepines Scrn NEGATIVE (NEGATIVE) 03/09/18 05:39 Urine Cocaine Screen NEGATIVE (NEGATIVE) 03/09/18 05:39 U Cannabinoids Screen NEGATIVE (NEGATIVE) 03/09/18 05:39 Serum Ketones SMALL (NEGATIVE) H 03/11/18 04:35 ABX Reporting Has patient been on IV antibiotics over the past 48 hours?: No
--- NOTE | 2018-03-11 16:28 | CT Report ---
Procedure Date: 03/11/2018 Accession Number: [id number] / [id number] Procedure: CT - Abdomen W/ CPT Code: FULL RESULT: EXAM: CT ABDOMEN EXAM DATE: 03/11/2018 03:47 PM. CLINICAL HISTORY: Epigastric pain after eating. COMPARISON: CT abdomen and pelvis 01/31/2018. TECHNIQUE: Routine helical CT imaging was performed through the abdomen. IV contrast: 100 cc Isovue-300 Enteric contrast: No. Reconstruction: Coronal and sagittal. In accordance with CT protocol optimization, one or more of the following dose reduction techniques were utilized for this exam: automated exposure control, adjustment of mA and/or KV based on patient size, or use of iterative reconstructive technique. FINDINGS: Lung Bases: Clear. Liver: Normal size and contour without focal lesion. Lidocaine mass which her. Gallbladder/Bile Ducts: No calcified gallstone, wall thickening, or ductal dilatation. Spleen: Normal. Pancreas: Unremarkable. Adrenal Glands: No nodule. Right Kidney/Ureter: Smooth renal contour. Interval progressive marked hydronephrosis with dilated extrarenal pelvis 4.9 cm AP diameter compared to 2.1 cm previously. No stones. Delayed renal parenchymal enhancement with persistent distinct cortical-medullary phase compared to left. Tortuous ureter at the UPJ with limited detail. More distal ureter up to 11 mm in diameter. No perinephric fluid or fat stranding. Left Kidney/Ureter: Smooth renal contour. Mild pelviectasis without caliectasis. Normal parenchymal enhancement. No stones, perinephric fat stranding or fluid. Peritoneal Cavity/Bowel: Contracted stomach. No intestinal dilatation or focal inflammation identified. Paucity of mesenteric fat tissue planes. No obvious adenopathy. No free fluid, loculated collection, or free air. Vasculature: No aneurysm or significant findings identified. Bones: Unremarkable. Other: Partially visualized markedly dilated bladder with bladder dome approximately 2 cm above the level of umbilicus. IMPRESSION: 1. Markedly dilated partially visualized bladder. 2. Associated [id number] right hydronephrosis and delayed right renal parenchymal enhancement. No visible stones (also not seen on the reference CT abdomen and pelvis). Differential includes neurogenic bladder or bladder outlet obstruction with secondary right hydronephrosis potentially from vesicoureteral reflux. 2. Mild left pelviectasis without caliectasis. 3. No other acute process identified. RADIA
[2018-03-11] MEDS ORDERED: LIDOCAINE 2% URO-JET 5 ML SYRINGE UR SCH (16:36)
[2018-03-11 18:32] LABS: CALCIUM 8.9 mg/dL (8.5-10.3); CREATININE 0.4 mg/dL (0.6-1.2)
--- NOTE | 2018-03-11 19:05 | CONSULTATION NOTE ---
Referring Provider Name of Referring Provider:: Dr. Barakat Consult Date: 03/11/18 Chief Complaint - Chief Complaint Chief Complaint: epigastric pain, N, V History of Present Illness - Admitted From Admitted From:: ER - History Obtained From Records Reviewed: yes History obtained from: pt, records Exam Limitations: none - History of Present Illness HPI Comment/Other: 17 yo male admitted with DKA on 03/09/18, one of many admissions over the past year for same. He also c/o intermittent aching midepigastric pain, nonradiating , post prandial in nature, sometimes associated with N/V but no fever, chills, or wt loss. He reports fear of eating when sx occur. No change in bowel habits, diarrhea, constipation, jaundice, melena, hematochezia, hematemesis. Sx last from hours to days when occur, but occur every few months he reports. No specific food intolerance, and he denies use of NSAIDs, alcohol, tobacco, marijuana, or other recreational drugs. Neg FH gallbladder disease or GI tumors. No hx PUD. A gastric emptying study was nl earlier this year. No prior EGDs. An abd CT this admission was notable for new marked right sided hydronephrosis with ureteral dilatation and marked bladder distention, compared to multiple prior CTs including one within the last few months. Pt reports no urinary sx such as dysuria, hematuria, frequency, inability to void, suprapubic or flank pain. He reports no prior urologic evaluations. History - Past Medical History Cardiovascular: reports: None Respiratory: reports: None Neuro: reports: Peripheral neuropathy Endocrine/Autoimmune: reports: Type 1 diabetes GI: reports: None : reports: None HEENT: reports: None Psych: reports: None Musculoskeletal: reports: None Derm: reports: None MRSA Hx?: No - Past Surgical History General: denies: EGD Other past surgical history: None - Family & Social History Family History Comment/Other: Neg for gallbladder disease and GI tumors Living arrangement: At home Living Situation: With family Social History Notes: The patient is originally from [place] but has been living on [facility] for the last 3 years with his aunt. The patient also spent some time in [place]. Patient has had several hospitalizations for diabetic ketoacidosis within the last 2-3 years. Patient was diagnosed with diabetes at the age of 3. The patient is single and does not have any children. He does not smoke tobacco and rarely drinks alcohol. The patient does state he occasionally smokes marijuana but denies any other illicit drug use. - Substance History Use: Uses substance without health or social issues: NONE - POLST Patient has POLST: No POLST Status: Full Code Meds/Allgy - Home Medications Home Medications: Ambulatory Orders Medication Instructions Recorded Confirmed Insulin Aspart [Novolog] 0 - 12 unit SUBQ TIDWM 04/15/15 03/09/18 Insulin Glargine,Hum.rec.anlog 40 unit SQ DAILY PM 12/30/17 03/09/18 [Basaglar Kwikpen U-100] Gabapentin 300 mg PO DAILY 03/09/18 03/09/18 - Allergies Allergies/Adverse Reactions: Allergies Allergy/AdvReac Type Severity Reaction Status Date / Time No Known Drug Allergies Allergy Verified 03/09/18 00:12 Review of Systems - Constitutional Constitutional: reports: Poor appetite. denies: Fever, Chills, Weight gain, Weight loss - Cardiovascular Cariovascular: denies: Palpitations, Chest pain - Respiratory Respiratory: denies: Cough, Wheezing, SOB at rest - Gastrointestinal Gastrointestinal: reports: Abdominal pain, Nausea, Vomiting, Bile emesis, Poor appetite. denies: Constipation, Diarrhea, Change in bowel habits, Rectal bleeding, Black stools, Bloody stools, [place] blood emesis, Coffee grounds emesis , Reflux/heartburn, Bloating - Genitourinary Genitourinary: denies: Dysuria, Frequency, Urgency, Hematuria, Incontinence, Flank pain, Nocturia, Urethral discharge - Hematologic/Lymphatic Hematologic/Lymphatic: denies: Anemia, Bruising, Petechiae, Blood clots, Bleeding tendencies - All Other Systems All Other Systems: reports: Reviewed and negative Exam - Vital Signs Reviewed Vital Signs: Yes Vital Signs: Vital Signs x48h Temp Pulse Resp BP Pulse Ox 03/11/18 17:00 36.4 C L 99 16 113/74 99 03/11/18 12:21 36.7 C 97 14 104/69 100 - Physical Exam General Appearance: positive: No acute distress, Alert Eyes Bilateral: positive: Normal inspection, Conjunctivae nml, No scleral icterus ENT: positive: ENT inspection nml, Pharynx nml, No signs of dehydration Neck: positive: Nml inspection, No JVD. negative: Lymphadenopathy (R), Lymphadenopathy (L) Respiratory: positive: Chest non-tender, No respiratory distress, Breath sounds nml. negative: Wheezes, Rales, Rhonchi Cardiovascular: positive: Regular rate & rhythm, No murmur, No gallop, Tachycardia (sinus tach on ECG) Abdomen: positive: Non-tender, Nml bowel sounds, Mass (visible infraumbilical distention and mass arising from the pelvis c/w markedly dilated urinary bladder ). negative: No distention, Guarding, Rebound Extremities: positive: Non-tender, Nml appearance, No pedal edema. negative: Calf tenderness Neurologic/Psychiatric: positive: Oriented x3 Conclusion/Plan - Diagnosis Diagnosis: 1. Epigastric pain, N/V of unclear etiology; ddx includes PUD, gastritis, H. pylori, gallbladder disease, IBS, doubt IBD, neoplasm. . 2. Right sided hyronephrosis/hydroureter/urinary distention of unclear etiology. ddx includes diabetic autonomic neuropathy/neurogenic bladder, bladder outlet obstruction, UPJ on right plus neurogenic bladder, etc. - Plan Plan: 1. Rec: Abd US and EGD for further evaluation. The EGD procedure was discussed in detail, pt still deciding whether to proceed. If so, plan to perform in the AM. 2.Rec: urology consultation. Trial urinary catheter; pt declines. - Lab Results Lab results reviewed: Yes Fish Bones: 03/11/18 04:35 03/11/18 18:10 - Diagnostic Imaging Results Diagnostic Imaging Results: positive: Final report reviewed, Read independently Diagnostic Imaging Results Comments: See HPI - EKG Results EKG Findings: Sinus tach VR 110-130
[2018-03-11 19:21] LABS: BILIRUBIN,URINE NEGATIVE (NEGATIVE); GLUCOSE, URINE (UA) >=1000 mg/dL (NEGATIVE); KETONES,URINE (UA) 40 mg/dL (NEGATIVE); LEUKOCYTE ESTERASE, URINE NEGATIVE (NEGATIVE); NITRITE,URINE NEGATIVE (NEGATIVE); OCCULT BLOOD,URINE NEGATIVE (NEGATIVE); PH,URINE 5.5 PH (5.0-7.5); PROTEIN,URINE NEGATIVE (NEGATIVE); UROBILINOGEN,URINE 0.2 (NORMAL) E.U./dL (NORMAL)
[2018-03-11 19:27] LABS: CLARITY,URINE CLEAR (CLEAR)
[2018-03-11 19:56] LABS: BACTERIA,URINE Few /HPF (None Seen); SQUAMOUS EPITHELIAL CELL,UR FEW Squamous (<= Few)
[2018-03-12] MEDS: SODIUM CHLORIDE FLUSH 0.9% 10 ML SYRINGE IVP SCH ×4 (00:06→23:49)
[2018-03-12] MEDS: D5.45NS W/20 MEQ KCL 1,000 ML IV SCH ×2 (00:07→06:43)
[2018-03-12] MEDS: HYDROmorphone 1 MG/ML SYRINGE IVP PRN ×5 (00:09→21:19)
[2018-03-12 05:25] LABS: CALCIUM 8.5 mg/dL (8.5-10.3); CREATININE 0.4 mg/dL (0.6-1.2)
[2018-03-12 05:30] LABS: PHOSPHORUS 2.3 mg/dL (2.5-4.6)
[2018-03-12] MEDS: METOCLOPRAMIDE 10 MG TABLET PO SCH ×4 (06:43→21:19)
[2018-03-12] MEDS: PANTOPRAZOLE 40 MG VIAL IVP SCH (06:43)
[2018-03-12] MEDS: INSULIN ASPART 300 UNIT/3 ML PEN SUBQ SCH ×4 (08:29→21:21)
[2018-03-12] MEDS ORDERED: HYDROmorphone 1 MG/ML SYRINGE IVP PRN (08:43)
[2018-03-12] MEDS ORDERED: POTASSIUM PHOSPHATE 21 MMOL in SODIUM CHLORIDE 0.9% 250 ML IV ONE (09:00)
--- NOTE | 2018-03-12 09:02 | Ultrasound Report ---
Procedure Date: 03/12/2018 Accession Number: [id number] / [id number] Procedure: US - Abdomen Complete CPT Code: FULL RESULT: EXAM: ABDOMEN ULTRASOUND EXAM DATE: 03/12/2018 08:18 AM. CLINICAL HISTORY: Epigastric pain, urinary retention. COMPARISON: CT abdomen 03/11/2018. TECHNIQUE: Real-time scanning was performed with static images obtained. FINDINGS: Liver: Normal in size and echotexture. 14.5 cm. Main portal vein flow: Hepatopetal. Gallbladder: Small pericholecystic fluid. No stones, wall thickening, or sonographic Rosario's sign. Biliary System: Common bile duct measures 4 mm. No intrahepatic or extrahepatic ductal dilatation. Pancreas: Visualized portion is unremarkable. Kidneys: Right: 13.9 cm longitudinally. Moderate to severe hydronephrosis, similar to yesterday's CT. Left: 14.0 cm longitudinally. Moderate hydronephrosis, similar to yesterday's CT. Spleen: 9.4 cm. Normal in size and echotexture. Aorta and Inferior Vena Cava: Unremarkable. Other: None. IMPRESSION: 1. No cholelithiasis or biliary dilatation. 2. Bilateral hydronephrosis, right worse than left. RADIA
[2018-03-12] MEDS ORDERED: LACTATED RINGERS 1,000 ML IV ONE (09:06)
[2018-03-12] MEDS ORDERED: LIDO GARGLE 30 ML BOTTLE TOP ONE (09:10)
[2018-03-12] MEDS ORDERED: LIDO GARGLE 30 ML BOTTLE ONE (09:19)
[2018-03-12] MEDS ORDERED: PROPOFOL 200 MG/20 ML VIAL IVP ONE (10:00)
[2018-03-12] MEDS ORDERED: LIDOCAINE-MPF 2% 5 ML VIAL IM ONE (10:00)
[2018-03-12] MEDS ORDERED: MIDAZOLAM 2 MG/2 ML VIAL IVP ONE (10:00)
--- NOTE | 2018-03-12 10:07 | PROCEDURE REPORT ---
Hospitalist Procedure Note - Procedure Note Procedure Note: EGD findings: 1. in distal esophagus were psuedomembranes c/w either Becca or ulcerative esophagitis; biopsies obtained. 2. more than expected liquid contents in stomach, suggestive of at least mild gastroparesis. 3. mild antral gastropathy, biopsies obtained for path and H. pylori. 4. abnormal mucosal pattern of gastric cardia, biopsies. 5. nl appearing duodenum; biopsies for celiac dz obtained.
[2018-03-12] MEDS ORDERED: SODIUM CHLORIDE 0.9% 1,000 ML IV ONE (10:08)
[2018-03-12] MEDS: POLYETHYLENE GLYCOL 3350 17 GM PACKET PO SCH (10:10)
[2018-03-12] MEDS: METOCLOPRAMIDE 10 MG/2 ML VIAL IVP PRN ×2 (10:46→16:56)
[2018-03-12] MEDS: INSULIN GLARGINE 300 UNIT/3 ML PEN SUBQ SCH ×2 (10:52→21:20)
[2018-03-12] MEDS ORDERED: D5NS W/20 MEQ KCL 1,000 ML IV SCH (11:00)
[2018-03-12] MEDS: FLUCONAZOLE 200 MG/100 ML 100 ML IV SCH (11:12)
[2018-03-12] MEDS: SODIUM CHLORIDE 0.9% 1,000 ML IV SCH ×2 (12:56→23:50)
[2018-03-12 13:18] LABS: HB2 TOTAL 14.9 g/dL; HEMOGLOBIN A1C 1.79 g/dL; HEMOGLOBIN A1C % 13.1 % (4.6-6.2)
[2018-03-12] MEDS ORDERED: LIDOCAINE 2% URO-JET 5 ML SYRINGE UR ONE (13:20)
--- NOTE | 2018-03-12 13:31 | PROVIDER PROGRESS NOTE ---
Assessment/Plan - Problem List (1) DKA (diabetic ketoacidoses) Qualifiers: Diabetes mellitus type: type 1 Assessment/Plan: Serum ketones are up again to moderate, but no elevated anion gap. Will continue ss Insulin and add a low dose of Lantus Insulin. Monitor POC glu closely (q1h prn), since he is not taking adequate diet and is on and off D5 in his iv fluids. Continue hydration with Normal Saline, since he was hypotensive and tachycardic during EGD with MAC anesthesia today. (2) Diabetic gastroparesis Assessment/Plan: The EGD showed more liquid than expected, including bile, consistent with gastroparesis, per the surgeon's evaluation. Continue scheduled Reglan to help peristalsis, and prn Reglan. Continue meds for pain control: will use more Ofirmev and less narcotics which could add to slower GI transit time. The patient will need a Frame And Scrap Crusher or PCP for better outpt mmanagement of this complication of his Type 1 Diabetes. (3) Abdominal pain Qualifiers: Abdominal location: epigastric Qualified Code(s): R10.13 - Epigastric pain Assessment/Plan: Pt had EGD today which showed no ulcer or bleeding. He had biopsies done. There were abnormalities that could represent yeast. Will start Diflucan iv, per surgical recommendation. Will continue meds for gastroparesis. Will remain with a soft diet and advance as tolerated. Other etiolgies for abdominal pain will also be evaluated (hydronephrosis and urinary bladder distension - see below). (4) Hydronephrosis Qualifiers: Hydronephrosis type: other Qualified Code(s): N13.39 - Other hydronephrosis Assessment/Plan: This was seen on CT yesterday and ultrasound today. There is no renal failure from hydronephrosis yet, per serum creatinine. I reached out today to School Office Manager Urologist at [facility], Dr Gold, who reviewed the imaging reports with me and his impression was that of a neurogenic bladder from Diabetes. The Urologist recommended a Orellana catheter be inserted and that the patient will need to be taught chronic intermittent catheterization. The patient agreed to have a Orellana catheter inserted. (5) Hypokalemia Assessment/Plan: Replace with iv KPhos, since he cannot tolerate liquid KPhos and may not be able to take a K pill. Monitor labs daily. (6) Hypophosphatemia Assessment/Plan: Replace and monitor labs daily. (7) Noncompliance with diabetes treatment Assessment/Plan: I was able to reach his 2 aunts: Trisha, who he lives with and Annie, and speak to them by phone. They both describe the patient as being non-compliant with Diabetic management: he only takes Lantus, never checks his fingerstick glucoses, does not go to appointments scheduled for him, sleeps "half the day". He tells them that he doesn't care about poor diabetic management and doesn't care if he dies. He is not suicidal. They both think he is depressed. He has never been seen for depression or on any meds for depression. The patient usually does "listen to" what Annie tells him and she has rules which he does not follow, and that is why he does not live with Annie, but with his other aunt, Trisha. One aunt reported that "he only urinates twice a day for a long time." This confirms the suspicion of a neurogenic, and over-distended bladder. He will need evaluation for depression. - Current Meds Current Meds: Current Medications Generic Name Dose Route Start Last Admin Trade Name Freq PRN Reason Stop Dose Admin Acetaminophen 650 mg 03/09/18 01:31 03/09/18 05:42 Tylenol PO 650 mg Q4HR PRN Administration Pain 1 to 4 Al Hydroxide/Mg Hydroxide 30 ml 03/09/18 15:34 03/10/18 19:32 Mylanta Plus PO 30 ml Q4HR PRN Administration INDIGESTION Acetaminophen 100 mls @ 400 mls/hr 03/09/18 11:33 03/10/18 12:55 Ofirmev IV Infused Q6HR PRN Infusion PAIN Fluconazole 100 mls @ 100 mls/hr 03/12/18 11:00 03/12/18 12:20 Diflucan 200 Mg/100 Ml IV Infused DAILY SHEILA Infusion Sodium Chloride 1,000 mls @ 100 mls/hr 03/12/18 13:00 03/12/18 12:56 Normal Saline 0.9% IV 100 mls/hr .Q10H SHEILA Administration Insulin Aspart 2 - 10 unit 03/12/18 12:30 03/12/18 12:28 Novolog SUBQ 12 unit 0800,1200,1700,2100 SHEILA Administration Protocol Insulin Glargine 10 unit 03/12/18 10:50 03/12/18 10:52 Lantus Solostar SUBQ 10 unit BID SHEILA Administration Metoclopramide HCl 5 mg 03/09/18 10:53 03/12/18 10:46 Reglan Inj IVP 5 mg Q6HR PRN Administration Nausea / Vomiting Metoclopramide HCl 10 mg 03/10/18 19:00 03/12/18 12:14 Reglan PO Not Given ACHS SHEILA Ondansetron HCl 4 mg 03/09/18 01:31 03/10/18 12:33 Zofran Inj IVP 4 mg Q6HR PRN Administration Nausea / Vomiting Pantoprazole Sodium 40 mg 03/09/18 07:00 03/12/18 06:43 Protonix IVP 40 mg QDAC SHEILA Administration Polyethylene Glycol 17 gm 03/09/18 09:00 03/12/18 10:10 Miralax PO Not Given DAILY SHEILA Sodium Chloride 10 ml 03/09/18 01:31 03/09/18 13:38 Normal Saline Flush 0.9% IVP 10 ml PRN PRN Administration NEEDED PER PROVIDER ORDERS Sodium Chloride 10 ml 03/09/18 09:00 03/12/18 10:14 Normal Saline Flush 0.9% IVP 10 ml 0100,0900,1700 SHEILA Administration - Lab Result Fish Bone Diagrams: 03/11/18 04:35 03/12/18 04:45 - Additional Planning My Orders: My Active Orders 03/11/18 16:34 Straight Catheter Insertion [RC] ONCE 03/12/18 08:43 HYDROmorphone INJ SYRINGE [Dilaudid Inj Syringe] 1 mg IVP Q3HR PRN 03/12/18 09:00 Potassium Phosphate 21 mmol Sodium Chloride 0.9% [Normal Saline 0.9%] 250 ml IV ONCE 03/12/18 10:50 Insulin Glargine [Lantus Solostar] 10 unit SUBQ BID 03/12/18 11:00 Fluconazole 200 mg/100 ml [Diflucan 200 mg/100 ml] 100 ml IV DAILY 03/12/18 11:43 Blood Glucose POC [RC] PRN 03/12/18 12:16 Blood Glucose Checks - Eating [RC] 0800,1200,1700,2100 Initiate Hypoglycemia Protocol [RC] .protocol 03/12/18 12:30 Insulin Aspart [NovoLOG] 2 - 10 unit SUBQ 0800,1200,1700,2100 03/12/18 13:00 Sodium Chloride 0.9% [Normal Saline 0.9%] 1,000 ml IV 100 mls/hr 03/12/18 13:17 Orellana Insertion [RC] QSHIFT 03/12/18 13:18 Orellana Continuation and Care [] QSHIFT 03/12/18 Dinner DIET [Dysphagia Puree Diet] [DIET] 03/13/18 05:00 BMP - BASIC METABOLIC PANEL [CHEM] DAILYLAB KETONES, SERUM (ACETEST) [CHEM] DAILYLAB 03/14/18 05:00 KETONES, SERUM (ACETEST) [CHEM] DAILYLAB 03/15/18 05:00 KETONES, SERUM (ACETEST) [CHEM] DAILYLAB Subjective - Subjective Patient Reports: Other (Severe abdominal pain, only wants to try Ensure po.) Nursing Reports: Other (Glu in 400's, no Lantus was started yet.) Objective Vital Signs: Vital Signs - 24 hr 03/11/18 03/11/18 03/12/18 17:00 20:08 00:00 Temperature 36.4 C L 36.7 C 36.6 C Heart Rate [ 99 90 93 Monitoring electrodes] Respiratory 16 12 11 L Rate Blood Pressure 113/74 107/74 102/59 L [Left Brachial artery] O2 Saturation 99 100 99 03/12/18 03/12/18 03/12/18 04:46 08:47 10:00 Temperature 36.6 C 36.5 C Heart Rate [ 91 92 109 H Monitoring electrodes] Respiratory 14 13 10 L Rate Blood Pressure 106/77 102/67 90/47 L [Left Brachial artery] O2 Saturation 99 100 100 03/12/18 10:30 Temperature Heart Rate [ 107 H Monitoring electrodes] Respiratory 10 L Rate Blood Pressure 91/55 L [Left Brachial artery] O2 Saturation 100 Oxygen O2 Source Room air I&O (Last 24 Hrs): Intake and Output Totals x24h 03/10/18 03/11/18 03/12/18 23:59 23:59 23:59 Intake Total 258.037 9742.000 1210.417 Output Total 50 200 Balance 233.075 3959.000 1010.417 General: Alert, Oriented x3 HEENT: Mucous membr. moist/pink Neck: Supple, No JVD Neuro: Non Focal Cardiovascular: Regular rate, No murmurs Respiratory: No respiratory distress, Breath sounds nml Abdomen: Soft, No tenderness Extremities: No edema - Results Results: Laboratory Results WBC 4.6 x10^3/uL (4.8-10.8) L 03/11/18 04:35 RBC 4.36 10^6/uL (4.70-6.10) L 03/11/18 04:35 Hgb 13.5 g/dL (14.0-18.0) L 03/11/18 04:35 Hct 39.4 % (42.0-52.0) L 03/11/18 04:35 MCV 90.3 fL (80.0-94.0) 03/11/18 04:35 MCH 30.9 pg (27.0-31.0) 03/11/18 04:35 MCHC 34.2 g/dL (32.0-36.0) 03/11/18 04:35 RDW 12.4 % (12.0-15.0) 03/11/18 04:35 Plt Count 229 10^3/uL (130-450) 03/11/18 04:35 MPV 7.9 fL (7.4-11.4) 03/11/18 04:35 Neut # (Auto) 2.5 10^3/uL (1.5-6.6) 03/11/18 04:35 Lymph # (Auto) 1.6 10^3/uL (1.5-3.5) 03/11/18 04:35 [place] # (Auto) 0.4 10^3/uL (0.0-1.0) 03/11/18 04:35 Eos # (Auto) 0.0 10^3/uL (0.0-0.7) 03/11/18 04:35 Baso # (Auto) 0.0 10^3/uL (0.0-0.1) 03/11/18 04:35 Absolute Nucleated RBC 0.00 x10^3/uL 03/11/18 04:35 Nucleated RBC % 0.0 /100WBC 03/11/18 04:35 VBG pH 7.201 (7.31-7.41) L 03/09/18 15:54 VBG pCO2 16.6 mmHg (41-51) L 03/09/18 15:54 VBG pO2 77.3 mmHg (25-47) H 03/09/18 15:54 VBG HCO3 6.4 mmol/L (23-28) L 03/09/18 15:54 VBG Total CO2 6.9 mmol/L (24-29) L 03/09/18 15:54 VBG O2 Saturation 95.5 % (60-80) H 03/09/18 15:54 VBG Base Excess -19.3 mmol/L (-2 - +2) L 03/09/18 15:54 Sodium 132 mmol/L (135-145) L 03/12/18 04:45 Potassium 4.2 mmol/L (3.5-5.0) 03/12/18 04:45 Chloride 102 mmol/L (101-111) 03/12/18 04:45 Carbon Dioxide 20 mmol/L (21-32) L 03/12/18 04:45 Anion Gap 10.0 (6-13) 03/12/18 04:45 BUN 6 mg/dL (6-20) 03/12/18 04:45 Creatinine 0.4 mg/dL (0.6-1.2) L 03/12/18 04:45 Estimated GFR (MDRD) 277 (>89) 03/12/18 04:45 Glucose 318 mg/dL (70-100) H 03/12/18 04:45 POC Whole Bld Glucose 409 mg/dL (70 - 100) H 03/12/18 12:11 Glycated Hemoglobin 13.1 % (4.6-6.2) H 03/12/18 04:45 Estim Average Glucose 329 (70-100) H 03/12/18 04:45 Lactic Acid 1.5 mmol/L (0.5-2.2) 03/09/18 00:23 Calcium 8.5 mg/dL (8.5-10.3) 03/12/18 04:45 Phosphorus 2.3 mg/dL (2.5-4.6) L 03/12/18 04:45 Magnesium 2.0 mg/dL (1.7-2.8) 03/12/18 04:45 Total Bilirubin 1.4 mg/dL (0.2-1.0) H 18 00:23 AST 15 IU/L (10-42) 03/09/18 00:23 ALT 14 IU/L (10-60) 03/09/18 00:23 Alkaline Phosphatase 82 IU/L (42-121) 03/09/18 00:23 Troponin I < 0.04 ng/mL (<0.49) 03/09/18 00:45 Total Protein 7.4 g/dL (6.7-8.2) 03/09/18 00:23 Albumin 3.3 g/dL (3.2-5.5) 03/09/18 06:08 Globulin 3.6 g/dL (2.1-4.2) 03/09/18 00:23 Albumin/Globulin Ratio 1.1 (1.0-2.2) 03/09/18 00:23 Urine Color YELLOW 03/11/18 18:45 Urine Clarity CLEAR (CLEAR) 03/11/18 18:45 Urine pH 5.5 PH (5.0-7.5) 03/11/18 18:45 Ur Specific [place] 1.010 (1.002-1.030) 03/11/18 18:45 Urine Protein NEGATIVE mg/dL (NEGATIVE) 03/11/18 18:45 Urine Glucose (UA) >=1000 mg/dL (NEGATIVE) H 03/11/18 18:45 Urine Ketones 40 mg/dL (NEGATIVE) H 03/11/18 18:45 Urine Occult Blood NEGATIVE (NEGATIVE) 03/11/18 18:45 Urine Nitrite NEGATIVE (NEGATIVE) 03/11/18 18:45 Urine Bilirubin NEGATIVE (NEGATIVE) 03/11/18 18:45 Urine Urobilinogen 0.2 (NORMAL) E.U./dL (NORMAL) 03/11/18 18:45 Ur Leukocyte Esterase NEGATIVE (NEGATIVE) 03/11/18 18:45 Urine RBC 11-25 /HPF (0-5) H 18 18:45 Urine WBC 0-3 /HPF (0-3) 03/11/18 18:45 Ur Squamous Epith Cells FEW Squamous (<= Few) 03/11/18 18:45 Urine Bacteria Few /HPF (None Seen) 03/11/18 18:45 Ur Microscopic Review NOT INDICATED 03/09/18 05:39 Urine Culture Comments NOT INDICATED 03/11/18 18:45 Urine Opiates Screen NEGATIVE (NEGATIVE) 03/09/18 05:39 Ur Oxycodone Screen NEGATIVE (NEGATIVE) 03/09/18 05:39 Urine Methadone Screen NEGATIVE (NEGATIVE) 03/09/18 05:39 Ur Propoxyphene Screen NEGATIVE (NEGATIVE) 03/09/18 05:39 Ur Barbiturates Screen NEGATIVE (NEGATIVE) 03/09/18 05:39 Ur Tricyclics Screen NEGATIVE (NEGATIVE) 03/09/18 05:39 Ur Phencyclidine Scrn NEGATIVE (NEGATIVE) 03/09/18 05:39 Ur Amphetamine Screen NEGATIVE (NEGATIVE) 03/09/18 05:39 U Methamphetamines Scrn NEGATIVE (NEGATIVE) 03/09/18 05:39 U Benzodiazepines Scrn NEGATIVE (NEGATIVE) 03/09/18 05:39 Urine Cocaine Screen NEGATIVE (NEGATIVE) 03/09/18 05:39 U Cannabinoids Screen NEGATIVE (NEGATIVE) 03/09/18 05:39 Serum Ketones MODERATE (NEGATIVE) H 03/12/18 09:59
[2018-03-12] MEDS: ACETAMINOPHEN 1,000 MG/100 ML 100 ML IV PRN (14:07)
[2018-03-12] MEDS: MAG HYDROX/AL HYDROX/SIMETH 30 ML UDC PO PRN (16:35)
[2018-03-12] MEDS: PHENAZOPYRIDINE 100 MG TABLET PO SCH ×2 (16:41→21:18)
--- NOTE | 2018-03-12 19:29 | ADVANCE CARE PLANNING NOTE ---
Advance Care Planning - Date/Time Date: 03/12/18 Time: 15:30 - Purpose of encounter Text: To establish patient's wishes regarding aggressiveness of his care, given that he doesn't adhere to treatment or see his outpatient care providers. - Parties in attendance Parties in attendance: I spoke to patient in his bed. In the room were his aunt Annie and her and 2 small children. Also present was his nurse, Janet Driver. - Decisional capacity Decisional capacity of: The patient was not oversedated at the moment of this discussion. and has full decisional capacity. - Subjective/Patient's story Subjective/Patient's story: The patient has had diabetes since age 3. he lives with an aunt, since his mother is estranged, having been a drug abuser. The patient has had 9 visits to ERs on the [place] in the past few months for DKA and cyclical vomiting, and epigastric pain, felt to be due to diabetic gastroparesis. He gets abdominal pain as soon as he eats solids, for the past several months. He has lost weight. He does not check his blood glucose, only takes his Lantus Insulin, drinks some alcohol and occasionally uses marijuana. He goes out til 2 am, then sleeps the whole next day til 2 pm, per his aunt. Aunt Annie makes him follow rules and he won't therefore he lives with another aunt, Trisha. He has worked part-time at [employer], but doesn't have a job for the past several months. He says he doesn't care about getting worse from his uncontrolled diabetes, and gives his aunt excuses why he isn't available to be taken to doctor appointments by her. He wishes he could just feel better. He admits that he is depressed, has thought about dying and committing suicide but has never made a specific plan. He thinks he is depressed because his mother didn't give him attention because of her drug habit. She lives in [facility] and is coming here to see him in 2-3 day. (When he told me about her visit his eyes lit up). The aunt confirmed that his mother and him have been communicating positively by texting lately. This aunt also reports that she, her sisters and Thomas have a similar trait of not confronting a problem, not "naming it" and dealing with it , until she herself started seeing a Psych provider and has learned what to do and wants Thomas to start talking about and dealing with the possible cause of his depression. - Objective/Medical story Objective/Medical Story: This is a 17 y/o man of ethnicity who is a type 1 brittle diabetic since age 3, has had multiple admissions for DKA and in the past 1-2 years has had frequent admissions for epigastric abdominal pain, presumed to be due to gastroparesis, but a nuclear gastric emptying study 6 months ago was read as normal emptying. He has non-compliance with fingersticks and Regular Insulin use , but does take Lantus Insulin. He does drink alcohol, occasionally binging and uses marijuana but no other illicit drugs. His last PCP visit was 9 months ago in [facility] and he has been set up to start being seen at the [facility] but has been a no-show for 2 or 3 visits. His PCP called me earlier this admission and said she spoke to the [facility] personally to not release him for being a frequent no-show. Our Gas Analyst has procured an appointment for him after this discharge for 03/16/18 at 3:30 pm, with a new PCP ( Heidy Kumar). On this admission, he presented in DKA with epigastric pain, improved on a DKA protocol with Insulin drip and saline hydration, began to eat soft then solid food and then worsened by again having epigastric pain with eating. A surgical elastic knitter performed an EGD that showed excessive bilious fluid in the stomach, consistent with gastroparesis, abnormal mucosa suggestive of Becca and Diflucan was started, Protonix was continued, Reglan was continued. He also had an abdominal CT and ultrasound showing bilateral hydronephrosis, R > L and a distended urinary bladder to the level of his umbilicus. A phone consultation with Urology from [facility] recommended a Orellana, which he reluctantly agreed to, was inserted, and it had immediate 300 cc urine drainage. His serum glucoses are again elevated in the 400's with small serum ketones but no elevated anion gap. There is no fever and vital signs are stable. - Goals of Care Goals of care determinations: He wants to "feel better". He is excited to meet with his mother in several days. His aunt thinks that meeting should bring to the surface that he blames her, but the mother may not feel remorse or guilt, per aunt Annie. He agrees to be treated for depression. He will be compliant with medical management and states he will follow-up with the new PCP after discahrge, with his aunt Annie's oversight. - Plan Plan: Will start Zoloft 50 mg po qpm. Continue present management of his diabetes, presumed gastroparesis and Candidal gastritis and presumed neurogenic bladder causing hydronephrosis but no renal insufficiency as of yet. I spoke to him briefly about what a DNR means and he had no comment, therefore his Code Status will remain a Full Code. - Code Status Code Status: Attempt Resuscitation - Time Spent on Advance Care Planning Time spent on advance care plannin min
[2018-03-12] MEDS: SERTRALINE 50 MG TABLET PO SCH (21:19)
[2018-03-13] MEDS: HYDROmorphone 1 MG/ML SYRINGE IVP PRN ×4 (04:48→21:58)
[2018-03-13 05:04] LABS: KETONES, SERUM (ACETEST) MODERATE (NEGATIVE)
[2018-03-13 05:09] LABS: BUN - BLOOD UREA NITROGEN 10 mg/dL (6-20); CALCIUM 8.6 mg/dL (8.5-10.3); CHLORIDE 106 mmol/L (101-111); CREATININE 0.6 mg/dL (0.6-1.2); GFR - MDRD 174 (>89); GLUCOSE 251 mg/dL (70-100); SODIUM 134 mmol/L (135-145)
[2018-03-13 05:10] LABS: CARBON DIOXIDE - CO2 10 mmol/L (21-32)
[2018-03-13] MEDS: METOCLOPRAMIDE 10 MG TABLET PO SCH ×4 (06:04→21:05)
[2018-03-13] MEDS: PHENAZOPYRIDINE 100 MG TABLET PO SCH ×3 (06:04→21:05)
[2018-03-13] MEDS: ACETAMINOPHEN 1,000 MG/100 ML 100 ML IV PRN ×3 (06:04→20:30)
[2018-03-13] MEDS: PANTOPRAZOLE 40 MG VIAL IVP SCH (06:04)
[2018-03-13] MEDS: INSULIN REGULAR HUMAN 100 UNIT in SODIUM CHLORIDE 0.9% 100ML 99 ML IV SCH (06:58)
[2018-03-13] MEDS: SODIUM CHLORIDE 0.45% 1,000 ML IV SCH ×2 (07:01→15:26)
[2018-03-13] MEDS ORDERED: SODIUM CHLORIDE 0.9% 1,000 ML IV ONE (07:02)
[2018-03-13] MEDS: INSULIN ASPART 300 UNIT/3 ML PEN SUBQ SCH (08:12)
[2018-03-13] MEDS: FLUCONAZOLE 200 MG/100 ML 100 ML IV SCH (08:47)
[2018-03-13] MEDS: SODIUM CHLORIDE FLUSH 0.9% 10 ML SYRINGE IVP SCH ×2 (08:48→16:05)
[2018-03-13] MEDS: POLYETHYLENE GLYCOL 3350 17 GM PACKET PO SCH (08:48)
[2018-03-13] MEDS: SERTRALINE 50 MG TABLET PO SCH (08:48)
[2018-03-13] MEDS: MAG HYDROX/AL HYDROX/SIMETH 30 ML UDC PO PRN (08:56)
--- NOTE | 2018-03-13 09:46 | PROVIDER PROGRESS NOTE ---
Assessment/Plan - Problem List (1) Abdominal pain Qualifiers: Abdominal location: epigastric Qualified Code(s): R10.13 - Epigastric pain Assessment/Plan: Unchanged, but able to tolerate food; etiology unclear; EGD suggestive of reflux esophagitis or Becca esophagitis; abd US neg for GB disease; biopsies pending. Rec: continue PPI, diflucan pending pathology report. - Current Meds Current Meds: Current Medications Generic Name Dose Route Start Last Admin Trade Name Freq PRN Reason Stop Dose Admin Al Hydroxide/Mg Hydroxide 30 ml 03/09/18 15:34 03/13/18 08:56 Mylanta Plus PO 30 ml Q4HR PRN Administration INDIGESTION Hydromorphone HCl 1 mg 03/12/18 13:34 03/13/18 09:15 Dilaudid Inj Syringe IVP 1 mg Q4HR PRN Administration SEVERE PAIN Acetaminophen 100 mls @ 400 mls/hr 03/09/18 11:33 03/13/18 06:19 Ofirmev IV Infused Q6HR PRN Infusion PAIN Fluconazole 100 mls @ 100 mls/hr 03/12/18 11:00 03/13/18 08:47 Diflucan 200 Mg/100 Ml IV 100 mls/hr DAILY SHEILA Administration Insulin Human Regular 100 unit 100 mls @ 4.65 mls/hr 03/13/18 07:00 03/13/18 06:58 / Sodium Chloride IV 4.65 unit/hr .[id number] SHEILA 4.65 mls/hr Protocol Administration 4.65 UNIT/HR Sodium Chloride 1,000 mls @ 125 mls/hr 03/13/18 07:00 03/13/18 07:01 Normal Saline 0.45% IV 125 mls/hr .Q8H SHEILA Administration Metoclopramide HCl 5 mg 03/09/18 10:53 03/12/18 16:56 Reglan Inj IVP 5 mg Q6HR PRN Administration Nausea / Vomiting Metoclopramide HCl 10 mg 03/10/18 19:00 03/13/18 06:04 Reglan PO 10 mg ACHS SHEILA Administration Ondansetron HCl 4 mg 03/09/18 01:31 03/10/18 12:33 Zofran Inj IVP 4 mg Q6HR PRN Administration Nausea / Vomiting Pantoprazole Sodium 40 mg 03/09/18 07:00 03/13/18 06:04 Protonix IVP 40 mg QDAC SHEILA Administration Phenazopyridine HCl 100 mg 03/12/18 17:00 03/13/18 06:04 Pyridium PO 100 mg TID SHEILA Administration Polyethylene Glycol 17 gm 03/09/18 09:00 03/13/18 08:48 Miralax PO Not Given DAILY SHEILA Sertraline HCl 50 mg 03/12/18 21:00 03/13/18 08:48 Zoloft PO 50 mg DAILY SHEILA Administration Sodium Chloride 10 ml 03/09/18 01:31 03/09/18 13:38 Normal Saline Flush 0.9% IVP 10 ml PRN PRN Administration NEEDED PER PROVIDER ORDERS Sodium Chloride 10 ml 03/09/18 09:00 03/13/18 08:48 Normal Saline Flush 0.9% IVP 10 ml 0100,0900,1700 SHEILA Administration - Lab Result Lab results reviewed: Yes Fish Bone Diagrams: 03/11/18 04:35 03/13/18 04:45 - Diagnostic Imaging Results Diagnostic Imaging Results: Final report reviewed, Read independently Diagnostic Imaging Results Comments: ABD US neg for gallbladder disease; + for bilat hydronephrosis - Additional Planning Condition/Complexity: Stable My Orders: My Active Orders 03/12/18 09:25 YESICA TEST [RAPID] Routine Consult/Specialty: Urology (for advice regarding management of hydronephrosis and urinary retention. He recommended zee catheter, which was placed yesterday.) Plan Discussed with:: Patient Time Spent: 15-30 minutes Subjective - Subjective Patient Reports: Abdominal Pain (epigastric, unchanged) Objective Vital Signs: Vital Signs - 24 hr 03/12/18 03/12/18 03/12/18 10:00 10:30 14:00 Temperature 36.6 C Heart Rate [ 109 H 107 H 108 H Monitoring electrodes] Respiratory 10 L 10 L 10 L Rate Blood Pressure 90/47 L 91/55 L 105/59 L [Left Brachial artery] O2 Saturation 100 100 100 03/12/18 03/12/18 03/13/18 19:57 23:46 04:50 Temperature 36.0 C L 36.7 C 37.2 C Heart Rate [ 112 H 94 113 H Monitoring electrodes] Respiratory 11 L 14 12 Rate Blood Pressure 105/61 94/63 105/65 [Left Brachial artery] O2 Saturation 100 100 100 Oxygen O2 Source Room air I&O (Last 24 Hrs): Intake and Output Totals x24h 03/11/18 03/12/18 03/13/18 23:59 23:59 23:59 Intake Total 3572.000 4043.986 601.014 Output Total 2200 1100 Balance 3572.000 1843.986 -498.986 General: Alert, Oriented x3, Cooperative Abdomen: Normal bowel sounds, Soft, No tenderness, No hepatospenomegaly, No masses (visibly enlarged urinary bladder has resolved with zee catheter placement) - Results Results: Laboratory Results WBC 4.6 x10^3/uL (4.8-10.8) L 03/11/18 04:35 RBC 4.36 10^6/uL (4.70-6.10) L 03/11/18 04:35 Hgb 13.5 g/dL (14.0-18.0) L 03/11/18 04:35 Hct 39.4 % (42.0-52.0) L 03/11/18 04:35 MCV 90.3 fL (80.0-94.0) 03/11/18 04:35 MCH 30.9 pg (27.0-31.0) 03/11/18 04:35 MCHC 34.2 g/dL (32.0-36.0) 03/11/18 04:35 RDW 12.4 % (12.0-15.0) 03/11/18 04:35 Plt Count 229 10^3/uL (130-450) 03/11/18 04:35 MPV 7.9 fL (7.4-11.4) 03/11/18 04:35 Neut # (Auto) 2.5 10^3/uL (1.5-6.6) 03/11/18 04:35 Lymph # (Auto) 1.6 10^3/uL (1.5-3.5) 03/11/18 04:35 [place] # (Auto) 0.4 10^3/uL (0.0-1.0) 03/11/18 04:35 Eos # (Auto) 0.0 10^3/uL (0.0-0.7) 03/11/18 04:35 Baso # (Auto) 0.0 10^3/uL (0.0-0.1) 03/11/18 04:35 Absolute Nucleated RBC 0.00 x10^3/uL 03/11/18 04:35 Nucleated RBC % 0.0 /100WBC 03/11/18 04:35 VBG pH 7.201 (7.31-7.41) L 03/09/18 15:54 VBG pCO2 16.6 mmHg (41-51) L 03/09/18 15:54 VBG pO2 77.3 mmHg (25-47) H 03/09/18 15:54 VBG HCO3 6.4 mmol/L (23-28) L 03/09/18 15:54 VBG Total CO2 6.9 mmol/L (24-29) L 03/09/18 15:54 VBG O2 Saturation 95.5 % (60-80) H 03/09/18 15:54 VBG Base Excess -19.3 mmol/L (-2 - +2) L 03/09/18 15:54 Sodium 134 mmol/L (135-145) L 03/13/18 04:45 Potassium 4.0 mmol/L (3.5-5.0) 03/13/18 04:45 Chloride 106 mmol/L (101-111) 03/13/18 04:45 Carbon Dioxide 10 mmol/L (21-32) L* 03/13/18 04:45 Anion Gap 18.0 (6-13) H 03/13/18 04:45 BUN 10 mg/dL (6-20) 03/13/18 04:45 Creatinine 0.6 mg/dL (0.6-1.2) 03/13/18 04:45 Estimated GFR (MDRD) 174 (>89) 03/13/18 04:45 Glucose 251 mg/dL (70-100) H 03/13/18 04:45 POC Whole Bld Glucose 237 mg/dL (70 - 100) H 03/13/18 09:21 Glycated Hemoglobin 13.1 % (4.6-6.2) H 03/12/18 04:45 Estim Average Glucose 329 (70-100) H 03/12/18 04:45 Lactic Acid 1.5 mmol/L (0.5-2.2) 06/13/18 00:23 Calcium 8.6 mg/dL (8.5-10.3) 03/13/18 04:45 Phosphorus 2.3 mg/dL (2.5-4.6) L 03/12/18 04:45 Magnesium 2.0 mg/dL (1.7-2.8) 03/12/18 04:45 Total Bilirubin 1.4 mg/dL (0.2-1.0) H 03/09/18 00:23 AST 15 IU/L (10-42) 03/09/18 00:23 ALT 14 IU/L (10-60) 03/09/18 00:23 Alkaline Phosphatase 82 IU/L (42-121) 03/09/18 00:23 Troponin I < 0.04 ng/mL (<0.49) 03/09/18 00:45 Total Protein 7.4 g/dL (6.7-8.2) 03/09/18 00:23 Albumin 3.3 g/dL (3.2-5.5) 03/09/18 06:08 Globulin 3.6 g/dL (2.1-4.2) 03/09/18 00:23 Albumin/Globulin Ratio 1.1 (1.0-2.2) 03/09/18 00:23 Urine Color YELLOW 03/11/18 18:45 Urine Clarity CLEAR (CLEAR) 03/11/18 18:45 Urine pH 5.5 PH (5.0-7.5) 03/11/18 18:45 Ur Specific [place] 1.010 (1.002-1.030) 03/11/18 18:45 Urine Protein NEGATIVE mg/dL (NEGATIVE) 03/11/18 18:45 Urine Glucose (UA) >=1000 mg/dL (NEGATIVE) H 03/11/18 18:45 Urine Ketones 40 mg/dL (NEGATIVE) H 03/11/18 18:45 Urine Occult Blood NEGATIVE (NEGATIVE) 03/11/18 18:45 Urine Nitrite NEGATIVE (NEGATIVE) 03/11/18 18:45 Urine Bilirubin NEGATIVE (NEGATIVE) 03/11/18 18:45 Urine Urobilinogen 0.2 (NORMAL) E.U./dL (NORMAL) 03/11/18 18:45 Ur Leukocyte Esterase NEGATIVE (NEGATIVE) 03/11/18 18:45 Urine RBC 11-25 /HPF (0-5) H 03/11/18 18:45 Urine WBC 0-3 /HPF (0-3) 03/11/18 18:45 Ur Squamous Epith Cells FEW Squamous (<= Few) 03/11/18 18:45 Urine Bacteria Few /HPF (None Seen) 03/11/18 18:45 Ur Microscopic Review NOT INDICATED 03/09/18 05:39 Urine Culture Comments NOT INDICATED 03/11/18 18:45 Urine Opiates Screen NEGATIVE (NEGATIVE) 03/09/18 05:39 Ur Oxycodone Screen NEGATIVE (NEGATIVE) 03/09/18 05:39 Urine Methadone Screen NEGATIVE (NEGATIVE) 03/09/18 05:39 Ur Propoxyphene Screen NEGATIVE (NEGATIVE) 03/09/18 05:39 Ur Barbiturates Screen NEGATIVE (NEGATIVE) 03/09/18 05:39 Ur Tricyclics Screen NEGATIVE (NEGATIVE) 03/09/18 05:39 Ur Phencyclidine Scrn NEGATIVE (NEGATIVE) 03/09/18 05:39 Ur Amphetamine Screen NEGATIVE (NEGATIVE) 03/09/18 05:39 U Methamphetamines Scrn NEGATIVE (NEGATIVE) 03/09/18 05:39 U Benzodiazepines Scrn NEGATIVE (NEGATIVE) 03/09/18 05:39 Urine Cocaine Screen NEGATIVE (NEGATIVE) 03/09/18 05:39 U Cannabinoids Screen NEGATIVE (NEGATIVE) 03/09/18 05:39 Serum Ketones MODERATE (NEGATIVE) H 03/13/18 04:45 ABX Reporting Has patient been on IV antibiotics over the past 48 hours?: No
[2018-03-13 09:50] LABS: BILIRUBIN,URINE NEGATIVE (NEGATIVE); GLUCOSE, URINE (UA) 500 mg/dL (NEGATIVE); KETONES,URINE (UA) >=80 mg/dL (NEGATIVE); LEUKOCYTE ESTERASE, URINE NEGATIVE (NEGATIVE); NITRITE,URINE POSITIVE (NEGATIVE); OCCULT BLOOD,URINE NEGATIVE (NEGATIVE); PH,URINE 5.5 PH (5.0-7.5); PROTEIN,URINE NEGATIVE (NEGATIVE); UROBILINOGEN,URINE 0.2 (NORMAL) E.U./dL (NORMAL)
[2018-03-13 09:55] LABS: VBG BASE EXCESS -11.9 mmol/L (-2 - +2); VBG PCO2 29.9 mmHg (41-51); VBG PH 7.273 (7.31-7.41); VBG PO2 61.4 mmHg (25-47); VBG TOTAL CO2 14.4 mmol/L (24-29)
[2018-03-13 09:58] LABS: BACTERIA,URINE Few /HPF (None Seen); CLARITY,URINE CLEAR (CLEAR); RBC,URINE None Seen /HPF (0-5); SQUAMOUS EPITHELIAL CELL,UR NONE SEEN (<= Few)
[2018-03-13 11:17] LABS: VBG BASE EXCESS -10.8 mmol/L (-2 - +2); VBG PCO2 37.6 mmHg (41-51); VBG PH 7.24 (7.31-7.41); VBG PO2 47.6 mmHg (25-47); VBG TOTAL CO2 16.9 mmol/L (24-29)
[2018-03-13 11:25] LABS: KETONES, SERUM (ACETEST) MODERATE (NEGATIVE)
[2018-03-13 11:27] LABS: BUN - BLOOD UREA NITROGEN 10 mg/dL (6-20); CALCIUM 8.5 mg/dL (8.5-10.3); CARBON DIOXIDE - CO2 17 mmol/L (21-32); CHLORIDE 106 mmol/L (101-111); CREATININE 0.6 mg/dL (0.6-1.2); GFR - MDRD 174 (>89); GLUCOSE 206 mg/dL (70-100); SODIUM 133 mmol/L (135-145)
--- NOTE | 2018-03-13 12:55 | PROVIDER PROGRESS NOTE ---
Assessment/Plan - Problem List (1) DKA (diabetic ketoacidoses) Qualifiers: Diabetes mellitus type: type 1 Assessment/Plan: Patient went back into DKA this am with elevated AG of 18, pH of 7.2, moderate ketones in serum and glu in 200's. Patient is back on DKA protocol with Insulin drip, iv Bicarb for several hours. He is a brittle diabetic. Will search for an infectious cause for recurrence of DKA: UTI is the most likely as he has symptoms. Check U/A and culture. (2) Hydronephrosis Qualifiers: Hydronephrosis type: other Qualified Code(s): N13.39 - Other hydronephrosis Assessment/Plan: Pt still has Orellana and his bladder scan showed "collections" of fluid in different area of the bladder, suggesting bladder enlargement. Continue Orellana for 1 more day. Monitor BUN/creat daily. Yesterday, RN reported having trouble inserting Orellana as if there was a stricture or other cause for resistance. Will work-up a potential cause for obstruction: stricture, poss from STD at this age group. Check for gonorrhea with swab, Chlamydia with urine culture, serum TRPR for syphilis, and Hepatitis A and B immunology as well as HIV. (3) Diabetic gastroparesis Assessment/Plan: vs gastritis. Biopsy result from yesterday's EGD is still pending. Continue Reglan before meals, Protonix for gastritis and Diflucan for Candidal gastritis. (4) Depression Assessment/Plan: Patient was started on Zoloft 50 mg qpm yesterday. (5) Penile discharge, without blood Assessment/Plan: The penile swab for GC was done and nurse reported whitish penile discharge. Pt now on Pyridium. Await cultures. - Current Meds Current Meds: Current Medications Generic Name Dose Route Start Last Admin Trade Name Freq PRN Reason Stop Dose Admin Al Hydroxide/Mg Hydroxide 30 ml 03/09/18 15:34 03/13/18 08:56 Mylanta Plus PO 30 ml Q4HR PRN Administration INDIGESTION Hydromorphone HCl 1 mg 03/12/18 13:34 03/13/18 09:15 Dilaudid Inj Syringe IVP 1 mg Q4HR PRN Administration SEVERE PAIN Acetaminophen 100 mls @ 400 mls/hr 03/09/18 11:33 03/13/18 12:43 Ofirmev IV 400 mls/hr Q6HR PRN Administration PAIN Fluconazole 100 mls @ 100 mls/hr 03/12/18 11:00 03/13/18 09:47 Diflucan 200 Mg/100 Ml IV Infused DAILY SHEILA Infusion Insulin Human Regular 100 unit 100 mls @ 4.65 mls/hr 03/13/18 07:00 03/13/18 11:00 / Sodium Chloride IV 4.65 unit/hr .[id number] SHEILA 4.65 mls/hr Protocol Titration 4.65 UNIT/HR Sodium Chloride 1,000 mls @ 125 mls/hr 03/13/18 07:00 03/13/18 11:00 Normal Saline 0.45% IV 125 mls/hr .Q8H SHEILA Infusion Metoclopramide HCl 5 mg 03/09/18 10:53 03/12/18 16:56 Reglan Inj IVP 5 mg Q6HR PRN Administration Nausea / Vomiting Metoclopramide HCl 10 mg 03/10/18 19:00 03/13/18 11:22 Reglan PO 10 mg ACHS SHEILA Administration Ondansetron HCl 4 mg 03/09/18 01:31 03/10/18 12:33 Zofran Inj IVP 4 mg Q6HR PRN Administration Nausea / Vomiting Pantoprazole Sodium 40 mg 03/09/18 07:00 03/13/18 06:04 Protonix IVP 40 mg QDAC SHEILA Administration Phenazopyridine HCl 100 mg 03/12/18 17:00 03/13/18 06:04 Pyridium PO 100 mg TID SHEILA Administration Polyethylene Glycol 17 gm 03/09/18 09:00 03/13/18 08:48 Miralax PO Not Given DAILY SHEILA Sertraline HCl 50 mg 03/12/18 21:00 03/13/18 08:48 Zoloft PO 50 mg DAILY SHEILA Administration Sodium Chloride 10 ml 03/09/18 01:31 03/09/18 13:38 Normal Saline Flush 0.9% IVP 10 ml PRN PRN Administration NEEDED PER PROVIDER ORDERS Sodium Chloride 10 ml 03/09/18 09:00 03/13/18 08:48 Normal Saline Flush 0.9% IVP 10 ml 0100,0900,1700 SHEILA Administration - Lab Result Fish Bone Diagrams: 03/11/18 04:35 03/13/18 13:15 - Additional Planning My Orders: My Active Orders 03/12/18 12:16 Blood Glucose Checks - Eating [RC] 0800,1200,1700,2100 03/12/18 13:17 Orellana Insertion [RC] QSHIFT 03/12/18 13:34 Miscellaenous Nursing Order [RC] PRN HYDROmorphone INJ SYRINGE [Dilaudid Inj Syringe] 1 mg IVP Q4HR PRN 03/12/18 17:00 Phenazopyridine [Pyridium] 100 mg PO TID 03/12/18 20:09 Miscellaenous Nursing Order [RC] ONCE 03/12/18 21:00 Sertraline [Zoloft] 50 mg PO DAILY 03/13/18 09:30 CUL, URINE [RM] Routine 03/13/18 10:46 CUL,N. GONORRHOEAE [RM] Urgent 03/13/18 11:05 HEPATITIS A AB TOTAL(IMMUNITY) [REFLAB] Routine HEPATITIS A IGM [REFLAB] Routine HEPATITIS ACUTE PANEL W CONF [REFLAB] Routine HEPATITIS B CORE AB TOTAL [REFLAB] Routine HEPATITIS B SURFACE AB QN IMM [REFLAB] Routine HEPATITIS B SURFACE AG W CONF [REFLAB] Routine HIV AB/AG 4TH GEN W/REFLEX [REFLAB] Urgent TREPONEMA AB IGG [REFLAB] Urgent 03/13/18 12:00 CHLAMYDIA/GC RNA TMA [REFLAB] Urgent 03/13/18 13:00 BMP - BASIC METABOLIC PANEL [CHEM] Timed KETONES, SERUM (ACETEST) [CHEM] Timed MAGNESIUM [CHEM] Timed TROPONIN I [IAI] Timed VENOUS BLOOD GAS [BG] Q2H Dextrose 5% [D5w] 1,000 ml Sodium Bicarbonate 100 meq IV 100 mls/hr 03/13/18 16:00 BMP - BASIC METABOLIC PANEL [CHEM] Timed KETONES, SERUM (ACETEST) [CHEM] Timed VENOUS BLOOD GAS [BG] Timed 03/13/18 20:00 KETONES, SERUM (ACETEST) [CHEM] Timed 03/14/18 05:00 KETONES, SERUM (ACETEST) [CHEM] DAILYLAB PHOSPHORUS [CHEM] DAILYLAB 03/15/18 05:00 KETONES, SERUM (ACETEST) [CHEM] DAILYLAB PHOSPHORUS [CHEM] DAILYLAB Subjective - Subjective Patient Reports: Resting Comfortably Nursing Reports: Other (More interactive, pain slightly better, had an appetite and ate breakfast then got epigastric pain.) Objective Vital Signs: Vital Signs - 24 hr 03/12/18 03/12/18 03/12/18 14:00 19:57 23:46 Temperature 36.6 C 36.0 C L 36.7 C Heart Rate [ 108 H 112 H 94 Monitoring electrodes] Respiratory 10 L 11 L 14 Rate Blood Pressure 105/59 L 105/61 94/63 [Left Brachial artery] O2 Saturation 100 100 100 03/13/18 03/13/18 03/13/18 04:50 09:00 12:05 Temperature 37.2 C 36.6 C 37.1 C Heart Rate [ 113 H 112 H 113 H Monitoring electrodes] Respiratory 12 16 10 L Rate Blood Pressure 105/65 96/58 L 101/61 [Left Brachial artery] O2 Saturation 100 100 99 Oxygen O2 Source Room air I&O (Last 24 Hrs): Intake and Output Totals x24h 03/11/18 03/12/18 03/13/18 23:59 23:59 23:59 Intake Total 3572.000 4043.986 2174.686 Output Total 2200 1750 Balance 3572.000 1843.986 424.686 General: Alert, Oriented x3 HEENT: Mucous membr. moist/pink Neck: Supple, No JVD Neuro: Non Focal Cardiovascular: Regular rate, No murmurs Respiratory: No respiratory distress, Breath sounds nml Abdomen: Soft, No tenderness, No masses Genitourinary: Discharge (RN reported white DCh) Extremities: No edema, Other (Muscle wasting) - Results Results: Laboratory Results WBC 4.6 x10^3/uL (4.8-10.8) L 03/11/18 04:35 RBC 4.36 10^6/uL (4.70-6.10) L 03/11/18 04:35 Hgb 13.5 g/dL (14.0-18.0) L 03/11/18 04:35 Hct 39.4 % (42.0-52.0) L 03/11/18 04:35 MCV 90.3 fL (80.0-94.0) 03/11/18 04:35 MCH 30.9 pg (27.0-31.0) 03/11/18 04:35 MCHC 34.2 g/dL (32.0-36.0) 03/11/18 04:35 RDW 12.4 % (12.0-15.0) 03/11/18 04:35 Plt Count 229 10^3/uL (130-450) 03/11/18 04:35 MPV 7.9 fL (7.4-11.4) 03/11/18 04:35 Neut # (Auto) 2.5 10^3/uL (1.5-6.6) 03/11/18 04:35 Lymph # (Auto) 1.6 10^3/uL (1.5-3.5) 03/11/18 04:35 [place] # (Auto) 0.4 10^3/uL (0.0-1.0) 03/11/18 04:35 Eos # (Auto) 0.0 10^3/uL (0.0-0.7) 03/11/18 04:35 Baso # (Auto) 0.0 10^3/uL (0.0-0.1) 03/11/18 04:35 Absolute Nucleated RBC 0.00 x10^3/uL 03/11/18 04:35 Nucleated RBC % 0.0 /100WBC 03/11/18 04:35 VBG pH 7.240 (7.31-7.41) L 03/13/18 11:05 VBG pCO2 37.6 mmHg (41-51) L 03/13/18 11:05 VBG pO2 47.6 mmHg (25-47) H 03/13/18 11:05 VBG HCO3 15.8 mmol/L (23-28) L 03/13/18 11:05 VBG Total CO2 16.9 mmol/L (24-29) L 03/13/18 11:05 VBG O2 Saturation 85.7 % (60-80) H 03/13/18 11:05 VBG Base Excess -10.8 mmol/L (-2 - +2) L 03/13/18 11:05 Sodium 133 mmol/L (135-145) L 03/13/18 11:05 Potassium 3.1 mmol/L (3.5-5.0) L 03/13/18 11:05 Chloride 106 mmol/L (101-111) 03/13/18 11:05 Carbon Dioxide 17 mmol/L (21-32) L 03/13/18 11:05 Anion Gap 10.0 (6-13) 03/13/18 11:05 BUN 10 mg/dL (6-20) 03/13/18 11:05 Creatinine 0.6 mg/dL (0.6-1.2) 03/13/18 11:05 Estimated GFR (MDRD) 174 (>89) 03/13/18 11:05 Glucose 206 mg/dL (70-100) H 03/13/18 11:05 POC Whole Bld Glucose 181 mg/dL (70 - 100) H 03/13/18 12:09 Glycated Hemoglobin 13.1 % (4.6-6.2) H 03/12/18 04:45 Estim Average Glucose 329 (70-100) H 03/12/18 04:45 Lactic Acid 1.5 mmol/L (0.5-2.2) 03/09/18 00:23 Calcium 8.5 mg/dL (8.5-10.3) 03/13/18 11:05 Phosphorus 2.3 mg/dL (2.5-4.6) L 03/12/18 04:45 Magnesium 2.0 mg/dL (1.7-2.8) 03/12/18 04:45 Total Bilirubin 1.4 mg/dL (0.2-1.0) H 03/09/18 00:23 AST 15 IU/L (10-42) 03/09/18 00:23 ALT 14 IU/L (10-60) 03/09/18 00:23 Alkaline Phosphatase 82 IU/L (42-121) 03/09/18 00:23 Troponin I < 0.04 ng/mL (<0.49) 03/09/18 00:45 Total Protein 7.4 g/dL (6.7-8.2) 03/09/18 00:23 Albumin 3.3 g/dL (3.2-5.5) 03/09/18 06:08 Globulin 3.6 g/dL (2.1-4.2) 03/09/18 00:23 Albumin/Globulin Ratio 1.1 (1.0-2.2) 03/09/18 00:23 Urine Color DARK YELLOW 03/13/18 09:30 Urine Clarity CLEAR (CLEAR) 03/13/18 09:30 Urine pH 5.5 PH (5.0-7.5) 03/13/18 09:30 Ur Specific [place] >=1.030 (1.002-1.030) H 03/13/18 09:30 Urine Protein NEGATIVE mg/dL (NEGATIVE) 03/13/18 09:30 Urine Glucose (UA) 500 mg/dL (NEGATIVE) H 03/13/18 09:30 Urine Ketones >=80 mg/dL (NEGATIVE) H 03/13/18 09:30 Urine Occult Blood NEGATIVE (NEGATIVE) 03/13/18 09:30 Urine Nitrite POSITIVE (NEGATIVE) H 03/13/18 09:30 Urine Bilirubin NEGATIVE (NEGATIVE) 03/13/18 09:30 Urine Urobilinogen 0.2 (NORMAL) E.U./dL (NORMAL) 03/13/18 09:30 Ur Leukocyte Esterase NEGATIVE (NEGATIVE) 03/13/18 09:30 Urine RBC None Seen /HPF (0-5) 03/13/18 09:30 Urine WBC 0-3 /HPF (0-3) 03/13/18 09:30 Ur Squamous Epith Cells NONE SEEN (<= Few) 03/13/18 09:30 Urine Bacteria Few /HPF (None Seen) 03/13/18 09:30 Ur Microscopic Review INDICATED 03/13/18 09:30 Urine Culture Comments INDICATED 03/13/18 09:30 Urine Opiates Screen NEGATIVE (NEGATIVE) 03/09/18 05:39 Ur Oxycodone Screen NEGATIVE (NEGATIVE) 03/09/18 05:39 Urine Methadone Screen NEGATIVE (NEGATIVE) 03/09/18 05:39 Ur Propoxyphene Screen NEGATIVE (NEGATIVE) 03/09/18 05:39 Ur Barbiturates Screen NEGATIVE (NEGATIVE) 03/09/18 05:39 Ur Tricyclics Screen NEGATIVE (NEGATIVE) 03/09/18 05:39 Ur Phencyclidine Scrn NEGATIVE (NEGATIVE) 03/09/18 05:39 Ur Amphetamine Screen NEGATIVE (NEGATIVE) 03/09/18 05:39 U Methamphetamines Scrn NEGATIVE (NEGATIVE) 03/09/18 05:39 U Benzodiazepines Scrn NEGATIVE (NEGATIVE) 03/09/18 05:39 Urine Cocaine Screen NEGATIVE (NEGATIVE) 03/09/18 05:39 U Cannabinoids Screen NEGATIVE (NEGATIVE) 03/09/18 05:39 Serum Ketones MODERATE (NEGATIVE) H 03/13/18 11:05
[2018-03-13] MEDS ORDERED: SODIUM BICARBONATE 100 MEQ in DEXTROSE 5% 1,000 ML IV SCH (13:00)
[2018-03-13 13:23] LABS: VBG BASE EXCESS -6.3 mmol/L (-2 - +2); VBG PCO2 40.6 mmHg (41-51); VBG PH 7.303 (7.31-7.41); VBG PO2 53.9 mmHg (25-47); VBG TOTAL CO2 20.9 mmol/L (24-29)
[2018-03-13 13:25] LABS: KETONES, SERUM (ACETEST) SMALL (NEGATIVE)
[2018-03-13 13:33] LABS: BUN - BLOOD UREA NITROGEN 10 mg/dL (6-20); CALCIUM 8.3 mg/dL (8.5-10.3); CARBON DIOXIDE - CO2 21 mmol/L (21-32); CHLORIDE 107 mmol/L (101-111); CREATININE 0.5 mg/dL (0.6-1.2); GFR - MDRD 214 (>89); GLUCOSE 166 mg/dL (70-100); MAGNESIUM 1.7 mg/dL (1.7-2.8); SODIUM 134 mmol/L (135-145)
[2018-03-13] MEDS: POTASSIUM CHLOR 10 MEQ/100 ML 10 MEQ/100 ML BAG IV SCH ×4 (13:43→16:58)
[2018-03-13] MEDS: SODIUM CHLORIDE FLUSH 0.9% 10 ML SYRINGE IVP PRN (15:08)
[2018-03-13] MEDS ORDERED: cefTRIAXone 1 GM in SODIUM CHLORIDE 0.9% MINIBAG 100 ML IV SCH (16:00)
[2018-03-13 16:27] LABS: VBG PH 7.315 (7.31-7.41)
[2018-03-13 16:28] LABS: BASOPHILS % (AUTO) 0.3 %; EOSINOPHILS % (AUTO) 0.3 %; HGB - HEMOGLOBIN 12.2 g/dL (14.0-18.0); LYMPHOCYTES # (AUTO) 1.2 10^3/uL (1.5-3.5); LYMPHOCYTES % (AUTO) 18.6 %; MEAN CORPUSCULAR HEMOGLOBIN 31.2 pg (27.0-31.0); MEAN CORPUSCULAR HGB CONC 34.7 g/dL (32.0-36.0); MEAN CORPUSCULAR VOLUME 89.9 fL (80.0-94.0); MEAN PLATELET VOLUME 7.4 fL (7.4-11.4); MONOCYTES # (AUTO) 0.4 10^3/uL (0.0-1.0); MONOCYTES % (AUTO) 5.8 %; NEUTROPHILS # (AUTO) 4.9 10^3/uL (1.5-6.6); PLT - PLATELET COUNT 218 10^3/uL (130-450); RED BLOOD COUNT 3.91 10^6/uL (4.70-6.10); RED CELL DISTRIBUTION WIDTH 12.8 % (12.0-15.0); WHITE BLOOD COUNT 6.5 x10^3/uL (4.8-10.8)
[2018-03-13 16:29] LABS: VBG BASE EXCESS -5.3 mmol/L (-2 - +2); VBG PCO2 41.4 mmHg (41-51); VBG PO2 51.8 mmHg (25-47); VBG TOTAL CO2 21.9 mmol/L (24-29)
[2018-03-13 16:36] LABS: KETONES, SERUM (ACETEST) SMALL (NEGATIVE)
[2018-03-13 16:37] LABS: BUN - BLOOD UREA NITROGEN 10 mg/dL (6-20); CALCIUM 8.1 mg/dL (8.5-10.3); CARBON DIOXIDE - CO2 21 mmol/L (21-32); CHLORIDE 106 mmol/L (101-111); CREATININE 0.4 mg/dL (0.6-1.2); GFR - MDRD 277 (>89); GLUCOSE 172 mg/dL (70-100); SODIUM 131 mmol/L (135-145)
[2018-03-13] MEDS: cefTRIAXone 1 GM in SODIUM CHLORIDE 0.9% MINIBAG 100 ML IV SCH (18:00)
[2018-03-13] MEDS ORDERED: SODIUM CHLORIDE 0.9% 1,000 ML IV SCH (18:10)
[2018-03-13] MEDS: VANCOMYCIN INJ 1 GM in SODIUM CHLORIDE 0.9% 250 ML IV SCH (18:58)
[2018-03-13] MEDS: D5.45NS W/20 MEQ KCL 1,000 ML IV SCH (20:31)
[2018-03-14] MEDS: SODIUM CHLORIDE FLUSH 0.9% 10 ML SYRINGE IVP SCH ×3 (01:03→17:50)
[2018-03-14] MEDS: VANCOMYCIN INJ 1 GM in SODIUM CHLORIDE 0.9% 250 ML IV SCH ×3 (03:04→19:51)
[2018-03-14] MEDS: HYDROmorphone 1 MG/ML SYRINGE IVP PRN ×2 (03:39→08:42)
[2018-03-14] MEDS: D5.45NS W/20 MEQ KCL 1,000 ML IV SCH (05:22)
[2018-03-14] MEDS: INSULIN REGULAR HUMAN 100 UNIT in SODIUM CHLORIDE 0.9% 100ML 99 ML IV SCH (05:22)
[2018-03-14 05:42] LABS: BASOPHILS % (AUTO) 0.8 %; EOSINOPHILS % (AUTO) 0.8 %; HGB - HEMOGLOBIN 11.6 g/dL (14.0-18.0); LYMPHOCYTES # (AUTO) 1.5 10^3/uL (1.5-3.5); LYMPHOCYTES % (AUTO) 30.5 %; MEAN CORPUSCULAR HGB CONC 34.6 g/dL (32.0-36.0); MEAN CORPUSCULAR VOLUME 89.6 fL (80.0-94.0); MEAN PLATELET VOLUME 7.5 fL (7.4-11.4); MONOCYTES # (AUTO) 0.3 10^3/uL (0.0-1.0); MONOCYTES % (AUTO) 5.9 %; PLT - PLATELET COUNT 209 10^3/uL (130-450); RED BLOOD COUNT 3.74 10^6/uL (4.70-6.10); RED CELL DISTRIBUTION WIDTH 12.7 % (12.0-15.0); WHITE BLOOD COUNT 4.8 x10^3/uL (4.8-10.8)
[2018-03-14 05:54] LABS: BUN - BLOOD UREA NITROGEN 6 mg/dL (6-20); CALCIUM 8.1 mg/dL (8.5-10.3); CARBON DIOXIDE - CO2 27 mmol/L (21-32); CHLORIDE 102 mmol/L (101-111); CREATININE 0.3 mg/dL (0.6-1.2); GFR - MDRD 386 (>89); GLUCOSE 113 mg/dL (70-100); SODIUM 134 mmol/L (135-145)
[2018-03-14 06:07] LABS: KETONES, SERUM (ACETEST) SMALL (NEGATIVE)
[2018-03-14] MEDS: PHENAZOPYRIDINE 100 MG TABLET PO SCH ×3 (06:19→21:15)
[2018-03-14] MEDS: PANTOPRAZOLE 40 MG VIAL IVP SCH (06:19)
[2018-03-14] MEDS: METOCLOPRAMIDE 10 MG TABLET PO SCH ×4 (06:20→21:15)
[2018-03-14] MEDS: POTASSIUM CHLOR 10 MEQ/100 ML 10 MEQ/100 ML BAG IV SCH ×4 (06:20→09:27)
[2018-03-14] MEDS: ACETAMINOPHEN 1,000 MG/100 ML 100 ML IV PRN ×2 (07:58→17:50)
[2018-03-14] MEDS ORDERED: POTASSIUM PHOSPHATE 15 MMOL in SODIUM CHLORIDE 0.9% 250 ML IV ONE ×2 (08:00→17:00)
[2018-03-14] MEDS: FLUCONAZOLE 200 MG/100 ML 100 ML IV SCH (08:20)
[2018-03-14] MEDS: SERTRALINE 50 MG TABLET PO SCH (08:41)
[2018-03-14] MEDS: POLYETHYLENE GLYCOL 3350 17 GM PACKET PO SCH (08:41)
[2018-03-14] MEDS ORDERED: POTASSIUM CHLORIDE INJ 40 MEQ in SODIUM CHLORIDE 0.9% 480 ML IV ONE (11:00)
[2018-03-14] MEDS ORDERED: SODIUM CHLORIDE 0.9% 1,000 ML IV SCH ×2 (12:28→13:00)
[2018-03-14] MEDS: GI COCKTAIL 120 ML BOTTLE PO SCH ×2 (13:05→17:50)
--- NOTE | 2018-03-14 13:09 | PROVIDER PROGRESS NOTE ---
Assessment/Plan - Problem List (1) DKA (diabetic ketoacidoses) Qualifiers: Diabetes mellitus type: type 1 Assessment/Plan: Anioin gap has cleared but still has serum ketones. I have reviewed all his old admissions and he often has small ketones. Pt starting to take a diet, therefore will change iv fluid D51/2 NS to NS and decrease rate. The patient will need several more days of hospitalization due to the recurrence of DKA yesterday. Will probably stop iv Insulin tonight or tomorrow am. (2) Hydronephrosis Qualifiers: Hydronephrosis type: other Qualified Code(s): N13.39 - Other hydronephrosis Assessment/Plan: Urine culture and STD cultures and labs pending. Pt on empiric iv antibiotics. Will stop Orellana to assess his urination frequency, scan bladder and re- ultrasound his abdomen and pelvis for hydronephrosis, probably tomorrow. (3) Diabetic gastroparesis Assessment/Plan: Pt has an appetite but still gets epigastric pain after eating. Continue Reglan before meals. Will add GI cocktail after meals. Biopsy results of EGD pending. Will continue to treat for Becca gastritis/ esophagitis and ulcer prophylaxis. (4) Depression Assessment/Plan: Pt on day #3 of Zoloft tonight. (5) Penile discharge, without blood Assessment/Plan: Cultures pending. Will remove Orellana to assess. - Current Meds Current Meds: Current Medications Generic Name Dose Route Start Last Admin Trade Name Freq PRN Reason Stop Dose Admin Al Hydroxide/Mg Hydroxide 30 ml 03/09/18 15:34 03/13/18 08:56 Mylanta Plus PO 30 ml Q4HR PRN Administration INDIGESTION Hydromorphone HCl 1 mg 03/12/18 13:34 03/14/18 08:42 Dilaudid Inj Syringe IVP 1 mg Q4HR PRN Administration SEVERE PAIN Acetaminophen 100 mls @ 400 mls/hr 03/09/18 11:33 03/14/18 08:13 Ofirmev IV Infused Q6HR PRN Infusion PAIN Fluconazole 100 mls @ 100 mls/hr 03/12/18 11:00 03/14/18 09:20 Diflucan 200 Mg/100 Ml IV Infused DAILY SHEILA Infusion Insulin Human Regular 100 unit 100 mls @ 4.65 mls/hr 03/13/18 07:00 03/14/18 10:00 / Sodium Chloride IV 2 unit/hr .[id number] SHEILA 2 mls/hr Protocol Titration 4.65 UNIT/HR Vancomycin HCl 1 gm/ Sodium 250 mls @ 167 mls/hr 03/13/18 19:00 03/14/18 10: 56 Chloride IV 167 mls/hr Q8H SHEILA Administration Ceftriaxone Sodium 1 gm/ 100 mls @ 200 mls/hr 03/13/18 18:00 03/13/18 18:30 Sodium Chloride IV Infused Q24H SHEILA Infusion Potassium Chloride 40 meq/ 500 mls @ 125 mls/hr 03/14/18 11:00 03/14/18 10:56 Sodium Chloride IV 03/14/18 14:59 125 mls/hr ONCE ONE Administration Metoclopramide HCl 5 mg 03/09/18 10:53 03/12/18 16:56 Reglan Inj IVP 5 mg Q6HR PRN Administration Nausea / Vomiting Metoclopramide HCl 10 mg 03/10/18 19:00 03/14/18 10:56 Reglan PO 10 mg ACHS SHEILA Administration Ondansetron HCl 4 mg 03/09/18 01:31 03/10/18 12:33 Zofran Inj IVP 4 mg Q6HR PRN Administration Nausea / Vomiting Pantoprazole Sodium 40 mg 03/09/18 07:00 03/14/18 06:19 Protonix IVP 40 mg QDAC SHEILA Administration Phenazopyridine HCl 100 mg 03/12/18 17:00 03/14/18 06:19 Pyridium PO 100 mg TID SHEILA Administration Polyethylene Glycol 17 gm 03/09/18 09:00 03/14/18 08:41 Miralax PO Not Given DAILY SHEILA Sertraline HCl 50 mg 03/12/18 21:00 03/14/18 08:41 Zoloft PO 50 mg DAILY SHEILA Administration Sodium Chloride 10 ml 03/09/18 01:31 03/13/18 15:08 Normal Saline Flush 0.9% IVP 20 ml PRN PRN Administration NEEDED PER PROVIDER ORDERS Sodium Chloride 10 ml 03/09/18 09:00 03/14/18 08:03 Normal Saline Flush 0.9% IVP 10 ml 0100,0900,1700 SHEILA Administration - Lab Result Fish Bone Diagrams: 03/14/18 04:55 03/14/18 11:18 - Additional Planning My Orders: My Active Orders 03/13/18 18:00 cefTRIAXone [Rocephin] 1 gm Sodium Chloride 0.9% Minibag [Normal Saline 0.9% Minibag] 100 ml IV Q24H 03/13/18 19:00 Vancomycin Inj [Vancomycin] 1 gm Sodium Chloride 0.9% [Normal Saline 0.9%] 250 ml IV Q8H 03/14/18 11:00 Potassium Chloride Inj 40 meq Sodium Chloride 0.9% [Normal Saline 0.9%] 480 ml IV ONCE 03/14/18 12:00 Gi Cocktail 15 ml PO TIDWM 03/14/18 12:28 Sodium Chloride 0.9% [Normal Saline 0.9%] 1,000 ml IV 60 mls/hr 03/14/18 15:00 KETONES, SERUM (ACETEST) [CHEM] Timed 03/14/18 17:00 Potassium Phosphate 15 mmol Sodium Chloride 0.9% [Normal Saline 0.9%] 250 ml IV ONCE 03/14/18 18:30 VANCOMYCIN TROUGH [CHEM] Timed 03/15/18 05:00 BMP - BASIC METABOLIC PANEL [CHEM] DAILYLAB CBC - COMP BLD CT W/AUTO DIFF [HEME] DAILYLAB KETONES, SERUM (ACETEST) [CHEM] DAILYLAB PHOSPHORUS [CHEM] DAILYLAB 03/16/18 05:00 BMP - BASIC METABOLIC PANEL [CHEM] DAILYLAB Subjective - Subjective Patient Reports: Feeling Better, Other (Abdominal pain after eating, but has an appetite) Objective Vital Signs: Vital Signs - 24 hr 03/13/18 03/13/18 03/13/18 14:00 15:21 16:05 Temperature 36.7 C Heart Rate [ 125 H 113 H 113 H Monitoring electrodes] Respiratory 12 12 13 Rate Blood Pressure 99/57 L 103/74 102/63 [Left Brachial artery] Blood Pressure [Right Brachial artery] O2 Saturation 100 100 100 03/13/18 03/13/18 03/14/18 17:00 20:37 00:06 Temperature 36.0 C L 36.2 C L Heart Rate [ 110 H 99 99 Monitoring electrodes] Respiratory 11 L 9 L 9 L Rate Blood Pressure 110/78 112/67 117/76 [Left Brachial artery] Blood Pressure [Right Brachial artery] O2 Saturation 100 99 97 03/14/18 03/14/18 03:42 07:28 Temperature 35.9 C L 36.8 C Heart Rate [ 92 97 Monitoring electrodes] Respiratory 13 10 L Rate Blood Pressure 115/85 H [Left Brachial artery] Blood Pressure 122/81 H [Right Brachial artery] O2 Saturation 99 100 Oxygen O2 Source Room air I&O (Last 24 Hrs): Intake and Output Totals x24h 03/12/18 03/13/18 03/14/18 23:59 23:59 23:59 Intake Total 4043.986 4406.199 3112.451 Output Total 2200 3360 2100 Balance 4092.378 6047.199 1012.451 General: Alert, Oriented x3, No acute distress HEENT: Mucous membr. moist/pink Neck: Supple Neuro: Non Focal Cardiovascular: Regular rate, No murmurs Respiratory: No respiratory distress, Breath sounds nml Abdomen: Soft, No tenderness, No masses Extremities: No edema, Other (Muscle wasting) - Results Results: Laboratory Results WBC 4.8 x10^3/uL (4.8-10.8) 03/14/18 04:55 RBC 3.74 10^6/uL (4.70-6.10) L 03/14/18 04:55 Hgb 11.6 g/dL (14.0-18.0) L 03/14/18 04:55 Hct 33.5 % (42.0-52.0) L 03/14/18 04:55 MCV 89.6 fL (80.0-94.0) 03/14/18 04:55 MCH 31.0 pg (27.0-31.0) 03/14/18 04:55 MCHC 34.6 g/dL (32.0-36.0) 03/14/18 04:55 RDW 12.7 % (12.0-15.0) 03/14/18 04:55 Plt Count 209 10^3/uL (130-450) 03/14/18 04:55 MPV 7.5 fL (7.4-11.4) 03/14/18 04:55 Neut # (Auto) 3.0 10^3/uL (1.5-6.6) 03/14/18 04:55 Lymph # (Auto) 1.5 10^3/uL (1.5-3.5) 03/14/18 04:55 [place] # (Auto) 0.3 10^3/uL (0.0-1.0) 03/14/18 04:55 Eos # (Auto) 0.0 10^3/uL (0.0-0.7) 03/14/18 04:55 Baso # (Auto) 0.0 10^3/uL (0.0-0.1) 03/14/18 04:55 Absolute Nucleated RBC 0.00 x10^3/uL 03/14/18 04:55 Nucleated RBC % 0.1 /100WBC 03/14/18 04:55 VBG pH 7.315 (7.31-7.41) 03/13/18 16:17 VBG pCO2 41.4 mmHg (41-51) 03/13/18 16:17 VBG pO2 51.8 mmHg (25-47) H 03/13/18 16:17 VBG HCO3 20.6 mmol/L (23-28) L 03/13/18 16:17 VBG Total CO2 21.9 mmol/L (24-29) L 03/13/18 16:17 VBG O2 Saturation 89.9 % (60-80) H 03/13/18 16:17 VBG Base Excess -5.3 mmol/L (-2 - +2) L 03/13/18 16:17 Sodium 134 mmol/L (135-145) L 03/14/18 04:55 Potassium 3.4 mmol/L (3.5-5.0) L 03/14/18 11:18 Chloride 102 mmol/L (101-111) 03/14/18 04:55 Carbon Dioxide 27 mmol/L (21-32) 03/14/18 04:55 Anion Gap 5.0 (6-13) L 03/14/18 04:55 BUN 6 mg/dL (6-20) 03/14/18 04:55 Creatinine 0.3 mg/dL (0.6-1.2) L 03/14/18 04:55 Estimated GFR (MDRD) 386 (>89) 03/14/18 04:55 Glucose 113 mg/dL (70-100) H 03/14/18 04:55 POC Whole Bld Glucose 245 mg/dL (70 - 100) H 03/14/18 11:51 Glycated Hemoglobin 13.1 % (4.6-6.2) H 03/12/18 04:45 Estim Average Glucose 329 (70-100) H 03/12/18 04:45 Lactic Acid 1.5 mmol/L (0.5-2.2) 03/09/18 00:23 Calcium 8.1 mg/dL (8.5-10.3) L 03/14/18 04:55 Phosphorus 2.0 mg/dL (2.5-4.6) L 03/14/18 04:55 Magnesium 1.7 mg/dL (1.7-2.8) 03/13/18 13:15 Total Bilirubin 1.4 mg/dL (0.2-1.0) H 03/09/18 00:23 AST 15 IU/L (10-42) 03/09/18 00:23 ALT 14 IU/L (10-60) 03/09/18 00:23 Alkaline Phosphatase 82 IU/L (42-121) 03/09/18 00:23 Troponin I < 0.04 ng/mL (<0.49) 03/13/18 13:15 Total Protein 7.4 g/dL (6.7-8.2) 03/09/18 00:23 Albumin 2.8 g/dL (3.2-5.5) L 03/13/18 13:15 Globulin 3.6 g/dL (2.1-4.2) 03/09/18 00:23 Albumin/Globulin Ratio 1.1 (1.0-2.2) 03/09/18 00:23 Urine Color DARK YELLOW 03/13/18 09:30 Urine Clarity CLEAR (CLEAR) 03/13/18 09:30 Urine pH 5.5 PH (5.0-7.5) 03/13/18 09:30 Ur Specific [place] >=1.030 (1.002-1.030) H 03/13/18 09:30 Urine Protein NEGATIVE mg/dL (NEGATIVE) 03/13/18 09:30 Urine Glucose (UA) 500 mg/dL (NEGATIVE) H 03/13/18 09:30 Urine Ketones >=80 mg/dL (NEGATIVE) H 03/13/18 09:30 Urine Occult Blood NEGATIVE (NEGATIVE) 03/13/18 09:30 Urine Nitrite POSITIVE (NEGATIVE) H 03/13/18 09:30 Urine Bilirubin NEGATIVE (NEGATIVE) 03/13/18 09:30 Urine Urobilinogen 0.2 (NORMAL) E.U./dL (NORMAL) 03/13/18 09:30 Ur Leukocyte Esterase NEGATIVE (NEGATIVE) 03/13/18 09:30 Urine RBC None Seen /HPF (0-5) 03/13/18 09:30 Urine WBC 0-3 /HPF (0-3) 03/13/18 09:30 Ur Squamous Epith Cells NONE SEEN (<= Few) 03/13/18 09:30 Urine Bacteria Few /HPF (None Seen) 03/13/18 09:30 Ur Microscopic Review INDICATED 03/13/18 09:30 Urine Culture Comments INDICATED 03/13/18 09:30 Urine Opiates Screen NEGATIVE (NEGATIVE) 03/09/18 05:39 Ur Oxycodone Screen NEGATIVE (NEGATIVE) 03/09/18 05:39 Urine Methadone Screen NEGATIVE (NEGATIVE) 03/09/18 05:39 Ur Propoxyphene Screen NEGATIVE (NEGATIVE) 03/09/18 05:39 Ur Barbiturates Screen NEGATIVE (NEGATIVE) 03/09/18 05:39 Ur Tricyclics Screen NEGATIVE (NEGATIVE) 03/09/18 05:39 Ur Phencyclidine Scrn NEGATIVE (NEGATIVE) 03/09/18 05:39 Ur Amphetamine Screen NEGATIVE (NEGATIVE) 03/09/18 05:39 U Methamphetamines Scrn NEGATIVE (NEGATIVE) 03/09/18 05:39 U Benzodiazepines Scrn NEGATIVE (NEGATIVE) 03/09/18 05:39 Urine Cocaine Screen NEGATIVE (NEGATIVE) 03/09/18 05:39 U Cannabinoids Screen NEGATIVE (NEGATIVE) 03/09/18 05:39 Serum Ketones SMALL (NEGATIVE) H 03/14/18 04:55
[2018-03-14] MEDS: SODIUM CHLORIDE FLUSH 0.9% 10 ML SYRINGE IVP PRN (17:51)
[2018-03-14] MEDS: cefTRIAXone 1 GM in SODIUM CHLORIDE 0.9% MINIBAG 100 ML IV SCH (18:22)
[2018-03-14 18:59] LABS: VANCOMYCIN,TROUGH 7.9 ug/mL (10.0-20.0)
[2018-03-14] MEDS ORDERED: D5NS W/20 MEQ KCL 1,000 ML IV SCH (21:46)
[2018-03-15] MEDS: INSULIN REGULAR HUMAN 100 UNIT in SODIUM CHLORIDE 0.9% 100ML 99 ML IV SCH (02:11)
[2018-03-15] MEDS: SODIUM CHLORIDE FLUSH 0.9% 10 ML SYRINGE IVP SCH ×2 (02:11→08:18)
[2018-03-15] MEDS: VANCOMYCIN INJ 1 GM in SODIUM CHLORIDE 0.9% 250 ML IV SCH ×2 (03:02→10:58)
[2018-03-15] MEDS ORDERED: VANCOMYCIN 1 GM VIAL ONE (03:06)
[2018-03-15] MEDS ORDERED: SODIUM CHLORIDE 0.9% 250 ML IV ONE (03:08)
[2018-03-15 05:17] LABS: BASOPHILS % (AUTO) 0.8 %; EOSINOPHILS % (AUTO) 0.6 %; HGB - HEMOGLOBIN 11.9 g/dL (14.0-18.0); LYMPHOCYTES # (AUTO) 1.2 10^3/uL (1.5-3.5); MEAN CORPUSCULAR HGB CONC 34.4 g/dL (32.0-36.0); MEAN CORPUSCULAR VOLUME 90.3 fL (80.0-94.0); MEAN PLATELET VOLUME 7.5 fL (7.4-11.4); MONOCYTES # (AUTO) 0.2 10^3/uL (0.0-1.0); MONOCYTES % (AUTO) 6.6 %; NEUTROPHILS # (AUTO) 2.1 10^3/uL (1.5-6.6); PLT - PLATELET COUNT 206 10^3/uL (130-450); RED BLOOD COUNT 3.83 10^6/uL (4.70-6.10); RED CELL DISTRIBUTION WIDTH 12.5 % (12.0-15.0); WHITE BLOOD COUNT 3.5 x10^3/uL (4.8-10.8)
[2018-03-15 05:20] LABS: KETONES, SERUM (ACETEST) NEGATIVE (NEGATIVE)
[2018-03-15 05:36] LABS: BUN - BLOOD UREA NITROGEN < 5 mg/dL (6-20); CALCIUM 8.5 mg/dL (8.5-10.3); CARBON DIOXIDE - CO2 30 mmol/L (21-32); CHLORIDE 101 mmol/L (101-111); CREATININE 0.3 mg/dL (0.6-1.2); GFR - MDRD 386 (>89); GLUCOSE 151 mg/dL (70-100); PHOSPHORUS 2.9 mg/dL (2.5-4.6); SODIUM 135 mmol/L (135-145)
[2018-03-15] MEDS: PHENAZOPYRIDINE 100 MG TABLET PO SCH (06:26)
[2018-03-15] MEDS: PANTOPRAZOLE 40 MG VIAL IVP SCH (06:26)
[2018-03-15] MEDS: METOCLOPRAMIDE 10 MG TABLET PO SCH ×2 (06:26→10:58)
[2018-03-15 06:49] LABS: HB2 TOTAL 12.5 g/dL; HEMOGLOBIN A1C 1.51 g/dL; HEMOGLOBIN A1C % 13.2 % (4.6-6.2)
[2018-03-15] MEDS: SODIUM CHLORIDE FLUSH 0.9% 10 ML SYRINGE IVP PRN ×2 (07:47→10:59)
[2018-03-15] MEDS: GI COCKTAIL 120 ML BOTTLE PO SCH ×2 (07:51→12:02)
[2018-03-15] MEDS: POLYETHYLENE GLYCOL 3350 17 GM PACKET PO SCH (07:51)
[2018-03-15] MEDS: INSULIN ASPART 300 UNIT/3 ML PEN SUBQ SCH ×2 (08:01→12:00)
[2018-03-15] MEDS: FLUCONAZOLE 200 MG/100 ML 100 ML IV SCH (08:18)
[2018-03-15] MEDS: SERTRALINE 50 MG TABLET PO SCH (08:18)
[2018-03-15] MEDS ORDERED: INSULIN GLARGINE 300 UNIT/3 ML PEN SUBQ SCH ×2 (09:00→21:00)
[2018-03-15 09:09] VITALS: BP 123/82
--- NOTE | 2018-03-15 11:33 | Discharge Plan ---
Discharge Plan Disposition: Home, Self Care Condition: Stable Prescriptions: Catheter [Apogee Ic Intermittent Cathetr] 1 each MC DAILY #30 each Lidocaine Viscous 2% [Xylocaine Viscous 2%] 15 ml MM TID #3 bottle Metoclopramide [Reglan] 10 mg PO ACHS #120 tablet Phenazopyridine [Pyridium] 100 mg PO TID #21 tablet Sertraline [Zoloft] 50 mg PO QPM #30 tablet Sulfamethox/Trimeth 800/160 [Bactrim Ds 800/160] 1 each PO BID #14 tablet Diet: Diabetic Shower Restrictions: No Instruction Topics: Hyperglycemia, Diabetes Resources, Diabetes Type 1 Coping, Diabetes Body Care, Diabetes Kidney Disease, Diabetes Carbs Fats Protein, Depression Help Tips, Depression Counseling Additional Instructions or Follow Up instructions: Take the Lantus Insulin 20 Units twice a day. Start checking your glucose levels and write them down and bring in to your appointment with your new Primary Care Provider on WedMarch 23 at 3:30 pm. PLEASE GO TO THAT APPOINTMENT. Take the Bactrin DS antibiotics until they are finished. The Pyridium is for pain in the penis or bladder, you can take it up to 3 times a day, while you are treating the urinary tract infection. Take the Reglan 20-30 min before your main meals. Take the liquid prescription 5 min AFTER your meals IF NEEDED for belly pain. You need to urinate AT LEAST 3 times a day. If you haven't urinated after being awake for 3-4 hours, you need to do self-catheterization. Your PCP should refer you to a Urologist. Keep taking the Zoloft at bedtime for Depression. I you feel more depressed or suicidal, call 911 or go to an ER immediately. Stop binge drinking alcohol. STOP USING POT COMPLETELY, SINCE IT MAKES YOU NAUSEATED AND VOMIT and that puts you into DKA. START SEEING YOUR NEW PCP. You need to discuss with her and manage your Diabetes , nausea from gastroparesis, kidney swelling from neurogenic bladder, Depression , and get results of tests for sexually transmitted disease (since they are not back yet today). She will also write your refills. No Smoking: If you smoke, Please STOP! Call for help. Follow-up with: Ailin Kumar DNP [Credentialed Staff Provider] -
[2018-03-15 13:16] LABS: HEPATITIS B SURFACE ANTIGEN NON-REACTIVE (NON-REACTIVE)
[2018-03-15 13:17] LABS: HEPATITIS A AB TOTAL(IMMUNITY) REACTIVE (NON-REACTIVE); HEPATITIS B CORE AB TOTAL NON-REACTIVE (NON-REACTIVE); HIV AG/AB 4TH GEN NON-REACTIVE (NON-REACTIVE)
[2018-03-15 14:46] LABS: HEPATITIS A IGM NON-REACTIVE (NON-REACTIVE); HEPATITIS B CORE ANTIBODY IGM NON-REACTIVE (NON-REACTIVE); HEPATITIS B SURFACE ANTIGEN NON-REACTIVE (NON-REACTIVE); HEPATITIS C ANTIBODY NON-REACTIVE (NON-REACTIVE)
--- NOTE | 2018-03-26 18:20 | DISCHARGE SUMMARY ---
Physician: Zoie Barakat MD DATE OF ADMISSION: 03/09/2018 DATE OF DISCHARGE: 03/15/2018 HISTORY OF PRESENT ILLNESS: This is a 17-year-old male of descent who has a history of type 1 diabetes, is insulin-dependent, has a history of frequent ER visits for abdominal pain, nausea, vomiting, and DKA admissions, history of using marijuana by smoking pot , medication noncompliance of his insulin and noncompliance with glucose testing. The patient had been in this emergency room approximately 1 month previously and admitted for DKA and abdominal pain, nausea and vomiting. He had workup for the nausea, vomiting for presumed gastroparesis by having a gastric emptying nuclear study in September of this year that was read as being normal without evidence of gastroparesis. The patient presented this time with similar complaints of nausea, vomiting, unable to keep any food down, diffuse abdominal pain without diarrhea or hematemesis and was in DKA again. He was admitted to the Intensive Care Unit for management. HOSPITAL COURSE AND DISCHARGE DIAGNOSES 1. Diabetic ketoacidosis. The patient was placed on an insulin drip and had management per diabetic ketoacidosis protocol. His serum ketones were very slow to clear, it took 2-3 days. The patient's n.p.o. diet was advanced rapidly when his abdominal pain was better after 1-1/2 days. However, this worsened, causing abdominal pain recurrence and diet was again reversed to n.p.o. status. On the final day of admission, his diet was rapidly advanced again and he could tolerate solid foods and was discharged. Patient admitted to not going to his PCP in [place] and a new primary care physician was arranged before this admission, to whom he was a no-show for 2 visits. Our social work associate called and his prior PCP called the new primary care clinic on [facility] to confirm his visit with Ailin Kumar on 03/23/2018 at 3:30 p.m. The patient was advised a different NPH insulin protocol, and advised glucose fingerstick checks. 2. Gastroparesis due to diabetes mellitus. Despite the normal workup of gastric emptying 6 months previously, this patient's entire clinical picture was that of diabetic gastroparesis. He had bowel rest and workup of his abdominal pain with abdomen CT and ultrasound. The abdomen CT showed no gallbladder disease or ductal dilatation, a normal spleen, unremarkable pancreas and adrenal glands. The abdomen ultrasound revealed no cholelithiasis or biliary dilatation but bilateral hydronephrosis, right worse than left, and an enlarged urinary bladder was suspected and worked up (see below). After bowel rest for several days, his diet was advanced from clears to soft to solids with scheduled Reglan p.o. and he tolerated solid food at discharge. 3. Hydronephrosis. The patient's BUN and creatinine were normal throughout this course. I reached out to a Urologist at [facility] for recommendations who advised a Orellana catheter be placed for a probable neurogenic bladder related to his Type 1 diabetes. The patient did have a Orellana inserted with drainage of over 500 mL of fluid. A general surgery consult was also obtained who confirmed that his urinary bladder was palpable up to the level of his umbilicus, this was resolved with Orellana placement. No other surgical cause of his overall abdominal pain was found. The Urologist had also advised that the patient would need to learn self-catheterization and he was discharged home with prescription for self-catheterization supplies. Outpatient Urology evaluation and management is advised. 4. Penile discharge. During placement of the Orellana catheter, the nurse noted that there was a purulent discharge. The patient underwent testing for sexually transmitted diseases. At the time of discharge, no results were available; however, the final results ( available now) showed only a positive hepatitis A antibody, but otherwise negative for chlamydia, hepatitis B, hepatitis C, HIV, gonorrhea or T. pallidum. His urinalysis which was obtained during Orellana placement showed few bacteria. Therefore, he was discharged with a course of antibiotics for urinary tract infection. 5. Urinary tract infection. The urine culture had no growth, urine Gram stain showed only yeast. At discharge, he received a prescription for Bactrim DS for a 7-day course as well as Pyridium for pain in the urinary bladder. 6. Noncompliance with diabetes treatment. There were several discussions regarding the underlying cause of his noncompliance. Two aunts were also involved in his care with whom I spoke. There was concern that he was depressed over having lost contact with his mother. He was started on treatment for depression with Zoloft and did have improvement in his interest in compliance at the time of discharge. 7. Depression. The patient exhibited signs of clinical depression, probably reactive depression from lack of contact with his mother. His aunt, Trisha, relayed that the mother also had depression as well as a drug use history and that the family dynamic was complicated. Further management with counseling or psychiatry is advised. He was given a new prescription for Zoloft, but he and the aunt were advised that if there are worsening symptoms or suicidal ideations that he should call 911 or come to an emergency room. LABORATORIES AND IMAGING: Reviewed and summarized above. In addition, the patient underwent an EGD by Dr. Edis Perez which showed no evidence of ulcer, gastritis, or esophageal varices. A YESICA test returned negative. MEDICATIONS AT THE TIME OF DISCHARGE 1. Apogee catheter for intermittent self-catheterization. 2. Gabapentin 300 mg p.o. daily. 3. NovoLog insulin 0-12 units subcutaneous t.i.d., depending on blood testing. 4. Glargine insulin 20 units subcutaneous b.i.d. 5. Lidocaine viscous 15 mL p.o. t.i.d. for abdominal pain after eating. 6. Reglan 10 mg p.o. before meals and at bedtime. 7. Pyridium 100 mg p.o. t.i.d. 8. Zoloft 50 mg p.o. q.p.m. 9. Trimethoprim sulfa 1 tab b.i.d. for 7 days. CONDITION AT DISCHARGE: Stable. PHYSICAL EXAMINATION AT THE TIME OF DISCHARGE VITAL SIGNS: Blood pressure 123/82, pulse of 88 in sinus rhythm, afebrile, room air saturation 98%. HEENT: Evidence of dysmorphic facies. Moist oral mucosa. NECK: Without JVD or carotid bruits. CHEST: Clear. HEART: Sounds normal. ABDOMEN: Soft, nontender. No organomegaly. No guarding or rebound. EXTREMITIES: Legs without clubbing, cyanosis, or edema. There were several eschars that were clean and dry. NEUROLOGIC: Intact. FOLLOWUP: This was arranged by our social work associate and confirmed for a followup with Ailin Kumar on 03/23/2018 at 3:30 p.m. at the [facility] in [place]. CODE STATUS: FULL CODE. Time required to complete this entire discharge, dictation, chart review, prescription orders: 60 minutes. cc: JUAN Richard ARNP TD: 03/26/2018 17:28 MTDD
== END 2018-03-15 13:30 | disposition home or self-care (01) | DRG 638 ==
LOC: ED 00:01 → ICU 01:32 → OBSVTOIN 03-10 15:28
PROVIDERS: ADMIT Specialist; ATTEND Internal Medicine
PROC: 0DB68ZX Excision of Stomach, Via Natural or Artificial Opening Endoscopic, Diagnostic (ICD-10-PCS; 2018-03-12)
PROC: 0DB38ZX Excision of Lower Esophagus, Via Natural or Artificial Opening Endoscopic, Diagnostic (ICD-10-PCS; 2018-03-12)
PROC: 0DB98ZX Excision of Duodenum, Via Natural or Artificial Opening Endoscopic, Diagnostic (ICD-10-PCS; principal; 2018-03-12 09:15)
DX: E10.10 Type 1 diabetes mellitus with ketoacidosis without coma (principal); B37.81 Candidal esophagitis; E46 Unspecified protein-calorie malnutrition; Z68.1 Body mass index [BMI] 19.9 or less, adult; N39.0 Urinary tract infection, site not specified; E87.6 Hypokalemia; E10.42 Type 1 diabetes mellitus with diabetic polyneuropathy; E10.43 Type 1 diabetes mellitus with diabetic autonomic (poly)neuropathy; K31.84 Gastroparesis; N31.9 Neuromuscular dysfunction of bladder, unspecified; F32.9 Major depressive disorder, single episode, unspecified; E83.39 Other disorders of phosphorus metabolism; R36.9 Urethral discharge, unspecified; T38.3X6A Underdosing of insulin and oral hypoglycemic [antidiabetic] drugs, initial encounter; Z79.4 Long term (current) use of insulin; Z91.14 Patient's other noncompliance with medication regimen; Z91.19 Patient's noncompliance with other medical treatment and regimen; Z72.89 Other problems related to lifestyle
CPT/HCPCS: 36415; 74160; 76700; 80048; 80053; 80074; 80202; 80306; 81001; 81003; 82009; 82040; 82803; 83036; 83605; 83735; 83930; 84100; 84132; 84484; 85025; 86317; 86704; 86708; 86709; 86780; 87081; 87086; 87150; 87340; 87389; 87491; 87591; 93005; 96361; 96365; 96366; 96367; 96368; 96375; 96376; 99284

== ENCOUNTER 2018-04-26 22:49 | Emergency (ER) | payer MEDICAID ==
[2018-04-26] MEDS ORDERED: SODIUM CHLORIDE 0.9% 1,000 ML IV ONE ×2 (23:17)
[2018-04-26 23:35] LABS: BASOPHILS % (AUTO) 0.5 %; EOSINOPHILS % (AUTO) 0.6 %; HGB - HEMOGLOBIN 14.6 g/dL (14.0-18.0); LYMPHOCYTES # (AUTO) 1.2 10^3/uL (1.5-3.5); LYMPHOCYTES % (AUTO) 16.4 %; MEAN CORPUSCULAR HEMOGLOBIN 30.5 pg (27.0-31.0); MEAN CORPUSCULAR HGB CONC 33.7 g/dL (32.0-36.0); MEAN CORPUSCULAR VOLUME 90.3 fL (80.0-94.0); MEAN PLATELET VOLUME 8.1 fL (7.4-11.4); MONOCYTES # (AUTO) 0.2 10^3/uL (0.0-1.0); MONOCYTES % (AUTO) 2.3 %; NEUTROPHILS % (AUTO) 80.2 %; PLT - PLATELET COUNT 295 10^3/uL (130-450); RED BLOOD COUNT 4.78 10^6/uL (4.70-6.10); RED CELL DISTRIBUTION WIDTH 12.8 % (12.0-15.0); VBG BASE EXCESS -3.8 mmol/L (-2 - +2); VBG PCO2 35.4 mmHg (41-51); VBG PH 7.381 (7.31-7.41); VBG PO2 29.7 mmHg (25-47); VBG TOTAL CO2 21.6 mmol/L (24-29); WHITE BLOOD COUNT 7.5 x10^3/uL (4.8-10.8)
[2018-04-26 23:47] LABS: ALKALINE PHOSPHATASE 93 IU/L (42-121); ALT ALANINE AMINOTRANSFERASE 16 IU/L (10-60); AST ASPARTATE AMINOTRANSFERASE 18 IU/L (10-42); BILIRUBIN,TOTAL 1.3 mg/dL (0.2-1.0); BUN - BLOOD UREA NITROGEN 12 mg/dL (6-20); CALCIUM 9.6 mg/dL (8.5-10.3); CARBON DIOXIDE - CO2 23 mmol/L (21-32); CHLORIDE 94 mmol/L (101-111); CREATININE 0.6 mg/dL (0.6-1.2); GFR - MDRD 174 (>89); GLUCOSE 361 mg/dL (70-100); LIPASE 21 U/L (22-51); SODIUM 134 mmol/L (135-145); TOTAL PROTEIN 8.2 g/dL (6.7-8.2)
[2018-04-26 23:48] LABS: KETONES, SERUM (ACETEST) SMALL (NEGATIVE)
--- NOTE | 2018-04-27 00:30 | ED Physician Documentation ---
PD HPI NVD - Stated complaint Stated Complaint: ABDOMINAL PAIN,VOMITING - Chief complaint Chief Complaint: Abd Pain - History obtained from History obtained from: Patient - History of Present Illness Timing - onset: Today (this morning) Timing - duration: Hours Timing - details: Abrupt onset Pain level max: 10 Pain level now: 10 Associated symptoms: Abdominal pain. No: Fever Improved by: Other (nothing) Worsened by: Other (no exacerbating factors) Similar symptoms before: Other (many previous ED visits for same symptoms, dianoses include gastritis, gastroparesis) Recently seen: Emergency Dept - Additonal information Additional information: 19th [facility] ED visit in past 10 months, some of which resulted in admission for n/ v, DKA, abdominal pain. returns c/o same thing as always (per patient); he specifies that he has been having nausea, vomiting and abdominal pain since this morning. HPI is mostly obtained via ROS, as patient repeatedly returns to his abdominal pain and requests for pain medication. Review of Systems Constitutional: reports: Reviewed and negative Cardiac: reports: Reviewed and negative Respiratory: reports: Reviewed and negative GI: reports: Abdominal Pain, Nausea, Vomiting. denies: Constipation, Diarrhea : denies: Dysuria, Frequency PD PAST MEDICAL HISTORY - Past Medical History Past Medical History: Yes Cardiovascular: None Respiratory: None Neuro: Peripheral neuropathy Endocrine/Autoimmune: Type 1 diabetes GI: None : None HEENT: None Psych: None Musculoskeletal: None Derm: None - Past Surgical History Past Surgical History: No - Present Medications Home Medications: Ambulatory Orders Medication Instructions Recorded Confirmed Insulin Aspart [Novolog] 0 - 12 unit SUBQ TIDWM 04/15/15 03/09/18 Gabapentin 300 mg PO DAILY 03/09/18 03/09/18 Catheter [Apogee Ic Intermittent 1 each MC DAILY #30 each 03/15/18 Cathetr] Insulin Glargine,Hum.rec.anlog 20 unit SQ BID #5 packet 03/15/18 03/09/18 [Basaglar Kwikpen U-100] Lidocaine Viscous 2% [Xylocaine 15 ml MM TID #3 bottle 03/15/18 Viscous 2%] Metoclopramide [Reglan] 10 mg PO ACHS #120 tablet 03/15/18 Phenazopyridine [Pyridium] 100 mg PO TID #21 tablet 06/19/18 Sertraline [Zoloft] 50 mg PO QPM #30 tablet 03/15/18 Sulfamethox/Trimeth 800/160 1 each PO BID #14 tablet 03/15/18 [Bactrim Ds 800/160] Omeprazole [PriLOSEC] 20 mg PO DAILY #14 capsule 04/27/18 Ondansetron Odt [Zofran] 4 mg TL Q6H PRN #10 tablet 04/27/18 - Allergies Allergies/Adverse Reactions: Allergies Allergy/AdvReac Type Severity Reaction Status Date / Time No Known Drug Allergies Allergy Verified 03/09/18 00:12 - Social History Does the pt smoke?: No Smoking Status: Never smoker Does the pt drink ETOH?: Yes Does the pt have substance abuse?: No - Immunizations Immunizations are current?: Yes - POLST Patient has POLST: No POLST Status: Full Code PD ED PE NORMAL - Vitals Vital signs reviewed: Yes - General General: Alert and oriented X 3, Well developed/nourished, Other (asleep when I enter room, awakens to tactile and immediately clutches abdomen and moans. there is a strong component of distractability (stops moaning and grimacing when conversing, resumes during pauses in discussion)) - HEENT HEENT: PERRL, EOMI, Moist mucous membranes - Cardiac Cardiac: RRR, No murmur - Respiratory Respiratory: No respiratory distress, Clear bilaterally - Abdomen Abdomen: Soft, Non distended, Other (diffuse tenderness without rebound or guarding. nontender when distracted (such as asked date of , place of residence), ) - Derm Derm: Normal color, Warm and dry - Extremities Extremities: No edema Results - Vitals Vitals: Oxygen O2 Source Room air - Labs Labs: Laboratory Tests 04/26/18 04/26/18 04/26/18 23:03 23:27 23:27 WBC 7.5 RBC 4.78 Hgb 14.6 Hct 43.2 MCV 90.3 MCH 30.5 MCHC 33.7 RDW 12.8 Plt Count 295 MPV 8.1 Neut # (Auto) 6.0 Lymph # (Auto) 1.2 L [place] # (Auto) 0.2 Eos # (Auto) 0.0 Baso # (Auto) 0.0 Absolute Nucleated RBC 0.00 Nucleated RBC % 0.0 VBG pH VBG pCO2 VBG pO2 VBG HCO3 VBG Total CO2 VBG O2 Saturation VBG Base Excess Sodium 134 L Potassium 3.4 L Chloride 94 L Carbon Dioxide 23 Anion Gap 17.0 H BUN 12 Creatinine 0.6 Estimated GFR (MDRD) 174 Glucose 361 H POC Whole Bld Glucose 424 H Calcium 9.6 Total Bilirubin 1.3 H AST 18 ALT 16 Alkaline Phosphatase 93 Total Protein 8.2 Albumin 4.0 Globulin 4.2 Albumin/Globulin Ratio 1.0 Lipase 21 L Serum Ketones SMALL H 04/26/18 04/27/18 04/27/18 23:27 00:58 01:42 WBC RBC Hgb Hct MCV MCH MCHC RDW Plt Count MPV Neut # (Auto) Lymph # (Auto) Luce # (Auto) Eos # (Auto) Baso # (Auto) Absolute Nucleated RBC Nucleated RBC % VBG pH 7.381 VBG pCO2 35.4 L VBG pO2 29.7 VBG HCO3 20.5 L VBG Total CO2 21.6 L VBG O2 Saturation 59.3 L VBG Base Excess -3.8 L Sodium Potassium Chloride Carbon Dioxide Anion Gap BUN Creatinine Estimated GFR (MDRD) Glucose POC Whole Bld Glucose 293 H 220 H Calcium Total Bilirubin AST ALT Alkaline Phosphatase Total Protein Albumin Globulin Albumin/Globulin Ratio Lipase Serum Ketones 04/27/18 03:07 WBC RBC Hgb Hct MCV MCH MCHC RDW Plt Count MPV Neut # (Auto) Lymph # (Auto) Luce # (Auto) Eos # (Auto) Baso # (Auto) Absolute Nucleated RBC Nucleated RBC % VBG pH VBG pCO2 VBG pO2 VBG HCO3 VBG Total CO2 VBG O2 Saturation VBG Base Excess Sodium Potassium Chloride Carbon Dioxide Anion Gap BUN Creatinine Estimated GFR (MDRD) Glucose POC Whole Bld Glucose 217 H Calcium Total Bilirubin AST ALT Alkaline Phosphatase Total Protein Albumin Globulin Albumin/Globulin Ratio Lipase Serum Ketones PD MEDICAL DECISION MAKING - ED course Complexity details: reviewed results, re-evaluated patient, considered differential, d/w patient ED course: as with recent visits when I was this patients ED physician, he falls asleep rapidly when I leave the room (as observed from hallway) and requires verbal, sometimes tactile, stimulation to wake him. Despite sleeping for most of his ED stay, he repeatedly asks for something for the pain. Lab tests are reassuring today, with hyperglycemia that improved significantly with fluids and insulin. small ketones but remainder of blood tests do not suggest DKA nor other emergent process that would require or benefit from further ED or inpatient testing or treatment. His vomited early in ED stay, but this resolved with IV fluids and antiemetics. - Sepsis Event Vital Signs: Oxygen O2 Source Room air Departure - Departure Disposition: Home, Self Care Clinical Impression: Dehydration Gastritis Qualifiers: Gastritis type: unspecified gastritis Chronicity: unspecified Gastritis bleeding: with bleeding Qualified Code(s): K29.71 - Gastritis, unspecified, with bleeding Vomiting Qualifiers: Vomiting type: unspecified Vomiting Intractability: non-intractable Nausea presence: with nausea Qualified Code(s): R11.2 - Nausea with vomiting, unspecified Abdominal pain Qualifiers: Abdominal location: generalized Qualified Code(s): R10.84 - Generalized abdominal pain Condition: Good Instructions: ED Gastritis, ED Nausea Vomiting, ED Abdominal Pain Unkn Cause Male Follow-Up: Ailin Kumar DNP [Primary Care Provider] - (Call this morning to arrange for next available appointment) Prescriptions: Omeprazole [PriLOSEC] 20 mg PO DAILY #14 capsule Ondansetron Odt [Zofran] 4 mg TL Q6H PRN #10 tablet PRN Reason: Nausea / Vomiting Discharge Date/Time: 04/27/18 04:50
[2018-04-27] MEDS ORDERED: INSULIN REGULAR HUMAN 100 UNIT/1 ML 10 ML MDV IVP STA (00:40)
[2018-04-27] MEDS ORDERED: SODIUM CHLORIDE 0.9% 1,000 ML IV STA (00:40)
[2018-04-27] MEDS ORDERED: ACETAMINOPHEN 1,000 MG/100 ML 100 ML IV STA (00:41)
[2018-04-27] MEDS ORDERED: LORazepam 2 MG/ML VIAL IVP STA (00:41)
[2018-04-27] MEDS ORDERED: PROMETHAZINE INJ 12.5 MG in SODIUM CHLORIDE 0.9% 50 ML IV STA (03:46)
[2018-04-27 04:26] VITALS: BP 138/98
[2018-04-27] MEDS ORDERED: PANTOPRAZOLE 40 MG TABLET PO STA (04:29)
== END 2018-04-27 04:50 | disposition home or self-care (01) ==
LOC: ED 22:49
DX: E86.0 Dehydration (principal); K29.71 Gastritis, unspecified, with bleeding; R11.2 Nausea with vomiting, unspecified; R10.84 Generalized abdominal pain; E10.42 Type 1 diabetes mellitus with diabetic polyneuropathy
CPT/HCPCS: 36415; 80053; 82009; 82803; 83690; 85025; 96365; 96367; 96375; 99284; A9270; J0131; J1815; J2060; J7040

== ENCOUNTER 2018-04-28 20:04 | Inpatient (IN) | payer MEDICAID ==
[2018-04-28] MEDS ORDERED: ONDANSETRON 4 MG/2 ML VIAL IVP STA (20:18)
[2018-04-28] MEDS ORDERED: SODIUM CHLORIDE 0.9% 1,000 ML IV ONE (20:18)
[2018-04-28] MEDS ORDERED: HYDROmorphone 1 MG/ML CARPUJECT IVP STA ×2 (20:32→21:23)
--- NOTE | 2018-04-28 20:37 | ED Physician Documentation ---
History of Present Illness - Stated complaint Stated Complaint: ABD PX - Chief complaint Chief Complaint: Abd Pain - History obtained from History obtained from: Patient - Additonal information Additional information: 17-year-old male with a history of type 1 diabetes and chronic abdominal pain with nausea and vomiting presents the emergency department with his typical symptoms of generalized abdominal pain and nausea and vomiting. The patient denies any acute changes or focal area of pain associated with his symptoms. The patient reports this is similar to episodes of gastroparesis in the past. The patient has not taken his blood sugar today. Symptoms are described as moderate. No triggering factors. No other associated symptoms. No relieving factors Review of Systems Constitutional: denies: Fever, Chills Eyes: denies: Discharge Ears: denies: Ear pain Nose: denies: Congestion Throat: denies: Dental pain / toothache Cardiac: denies: Chest pain / pressure Respiratory: denies: Dyspnea GI: reports: Abdominal Pain, Nausea, Vomiting : denies: Hematuria Skin: denies: Rash Musculoskeletal: denies: Extremity pain Neurologic: denies: Generalized weakness Immunocompromised: denies: Chemotherapy PD PAST MEDICAL HISTORY - Past Medical History Cardiovascular: None Respiratory: None Neuro: Peripheral neuropathy Endocrine/Autoimmune: Type 1 diabetes GI: None : None HEENT: None Psych: None Musculoskeletal: None Derm: None - Past Surgical History Past Surgical History: No - Present Medications Home Medications: Ambulatory Orders Medication Instructions Recorded Confirmed Insulin Aspart [Novolog] 0 - 12 unit SUBQ TIDWM 04/15/15 04/28/18 Catheter [Apogee Ic Intermittent 1 each MC DAILY #30 each 03/15/18 Cathetr] Insulin Glargine,Hum.rec.anlog 20 unit SQ BID #5 packet 03/15/18 04/28/18 [Basaglar Kwikpen U-100] Lidocaine Viscous 2% [Xylocaine 15 ml MM TID #3 bottle 03/15/18 04/28/18 Viscous 2%] Sertraline [Zoloft] 50 mg PO QPM #30 tablet 03/15/18 04/28/18 - Allergies Allergies/Adverse Reactions: Allergies Allergy/AdvReac Type Severity Reaction Status Date / Time No Known Drug Allergies Allergy Verified 04/28/18 20:08 - Social History Does the pt smoke?: No Smoking Status: Never smoker Does the pt drink ETOH?: Yes Does the pt have substance abuse?: No - Immunizations Immunizations are current?: Yes - POLST Patient has POLST: No POLST Status: Full Code PD ED PE NORMAL - General General: Alert and oriented X 3 - HEENT HEENT: Atraumatic, PERRL, EOMI, Ears normal - Cardiac Cardiac: Strong equal pulses - Respiratory Respiratory: No respiratory distress, Clear bilaterally - Abdomen Abdomen: Soft, Non distended - Derm Derm: Normal color - Extremities Extremities: No deformity, Normal ROM s pain - Neuro 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, Normal speech - Psych Psych: Normal mood PD ED PE EXPANDED - General General: In Pain - Cardiac Cardiac: Tachy - Abdomen Abdomen: Generalized/diffuse. No: Rebound, Guarding Results - Vitals Vitals: Vital Signs - 24 hr 04/28/18 20:07 Temperature 36.3 C L Heart Rate 132 H Respiratory 20 Rate Blood Pressure 103/73 O2 Saturation 100 Oxygen O2 Source Room air - Labs Labs: Laboratory Tests 04/28/18 04/28/18 20:20 20:20 WBC 7.1 RBC 5.16 Hgb 15.8 Hct 46.7 MCV 90.6 MCH 30.6 MCHC 33.8 RDW 12.9 Plt Count 334 MPV 8.1 Neut # (Auto) 5.7 Lymph # (Auto) 1.1 L [place] # (Auto) 0.2 Eos # (Auto) 0.0 Baso # (Auto) 0.0 Absolute Nucleated RBC 0.00 Nucleated RBC % 0.0 Sodium 137 Potassium 3.6 Chloride 103 Carbon Dioxide 15 L Anion Gap 19.0 H BUN 30 H Creatinine 0.6 Estimated GFR (MDRD) 174 Glucose 274 H Calcium 10.2 Magnesium 1.9 Total Bilirubin 1.7 H AST 15 ALT 13 Alkaline Phosphatase 105 Total Protein 9.0 H Albumin 4.2 Globulin 4.8 H Albumin/Globulin Ratio 0.9 L Lipase 16 L Serum Ketones MODERATE H - Rads (name of study) Acute Abdominal Series Radiology: Final report received PD MEDICAL DECISION MAKING - ED course ED course: The patient is in DKA which is most likely triggering his gastroparesis and chronic pain. The patient will require admission to the hospital for correction of his acute condition. The findings and plan were discussed with the patient. The findings and plan were discussed with the hospitalist Dr. Barakat who accepts the patient onto her service - Sepsis Event Vital Signs: Vital Signs - 24 hr 04/28/18 20:07 Temperature 36.3 C L Heart Rate 132 H Respiratory 20 Rate Blood Pressure 103/73 O2 Saturation 100 Oxygen O2 Source Room air Departure - Departure Disposition: ED Place in Observation Clinical Impression: DKA (diabetic ketoacidoses) Qualifiers: Diabetes mellitus type: type 1 Diabetes mellitus complication detail: without coma Qualified Code(s): E10.10 - Type 1 diabetes mellitus with ketoacidosis without coma Abdominal pain Qualifiers: Abdominal location: generalized Qualified Code(s): R10.84 - Generalized abdominal pain
[2018-04-28 20:42] LABS: BASOPHILS % (AUTO) 0.5 %; EOSINOPHILS % (AUTO) 0.2 %; HGB - HEMOGLOBIN 15.8 g/dL (14.0-18.0); LYMPHOCYTES # (AUTO) 1.1 10^3/uL (1.5-3.5); LYMPHOCYTES % (AUTO) 15.3 %; MEAN CORPUSCULAR HEMOGLOBIN 30.6 pg (27.0-31.0); MEAN CORPUSCULAR HGB CONC 33.8 g/dL (32.0-36.0); MEAN CORPUSCULAR VOLUME 90.6 fL (80.0-94.0); MEAN PLATELET VOLUME 8.1 fL (7.4-11.4); MONOCYTES # (AUTO) 0.2 10^3/uL (0.0-1.0); MONOCYTES % (AUTO) 2.8 %; NEUTROPHILS # (AUTO) 5.7 10^3/uL (1.5-6.6); NEUTROPHILS % (AUTO) 81.2 %; PLT - PLATELET COUNT 334 10^3/uL (130-450); RED BLOOD COUNT 5.16 10^6/uL (4.70-6.10); RED CELL DISTRIBUTION WIDTH 12.9 % (12.0-15.0); WHITE BLOOD COUNT 7.1 x10^3/uL (4.8-10.8)
[2018-04-28 20:51] LABS: KETONES, SERUM (ACETEST) MODERATE (NEGATIVE)
[2018-04-28 20:55] LABS: ALBUMIN 4.2 g/dL (3.2-5.5); ALBUMIN/GLOBULIN RATIO 0.9 (1.0-2.2); ALKALINE PHOSPHATASE 105 IU/L (42-121); ALT ALANINE AMINOTRANSFERASE 13 IU/L (10-60); AST ASPARTATE AMINOTRANSFERASE 15 IU/L (10-42); BILIRUBIN,TOTAL 1.7 mg/dL (0.2-1.0); BUN - BLOOD UREA NITROGEN 30 mg/dL (6-20); CALCIUM 10.2 mg/dL (8.5-10.3); CARBON DIOXIDE - CO2 15 mmol/L (21-32); CHLORIDE 103 mmol/L (101-111); CREATININE 0.6 mg/dL (0.6-1.2); GFR - MDRD 174 (>89); GLUCOSE 274 mg/dL (70-100); LIPASE 16 U/L (22-51); MAGNESIUM 1.9 mg/dL (1.7-2.8); SODIUM 137 mmol/L (135-145)
[2018-04-28] MEDS ORDERED: LACTATED RINGERS 1,000 ML IV ONE (21:16)
[2018-04-28] MEDS ORDERED: INSULIN REGULAR HUMAN 100 UNIT in SODIUM CHLORIDE 0.9% 100ML 99 ML IV STA (21:17)
[2018-04-28] MEDS ORDERED: HYDROcod/ACETAM 10 MG/325 MG TABLET PO STA (21:26)
[2018-04-28] MEDS ORDERED: DEXTROSE 5% 1,000 ML IV ONE ×2 (21:27→23:20)
[2018-04-28] MEDS ORDERED: POTASSIUM CHLORIDE 20 MEQ TABLET PO STA (21:28)
--- NOTE | 2018-04-28 21:28 | XRAY Report ---
Procedure Date: 04/28/2018 Accession Number: [id number] / [id number] Procedure: XR - Abdomen Acute CPT Code: FULL RESULT: EXAM: ABDOMINAL SERIES AND PA CHEST EXAM DATE: 04/28/2018 08:57 PM. CLINICAL HISTORY: Abdominal pain. COMPARISON: ABDOMEN ACUTE 12/31/2017. TECHNIQUE: 2 views abdomen and 1 view chest. FINDINGS: CHEST: Lungs/Pleura: No focal opacities. No effusion or pneumothorax. Mediastinum: Within exam limitations, cardiomediastinal contour is normal. ABDOMEN: Bowel Gas Pattern: Within normal limits. No dilated loops or abnormal fluid levels. Free Air: None. Other: Increased stool burden throughout the left colon. IMPRESSION: 1. Unremarkable chest. 2. Nonobstructive bowel gas pattern. 3. Increased left colon stool burden suggesting constipation. RADIA
[2018-04-28 21:40] LABS: VBG PCO2 27.4 mmHg (41-51); VBG PH 7.216 (7.31-7.41); VBG PO2 82.6 mmHg (25-47)
[2018-04-28 21:41] LABS: VBG BASE EXCESS -15.2 mmol/L ([, -2 - +2]); VBG TOTAL CO2 11.7 mmol/L (24-29)
[2018-04-28] MEDS ORDERED: PROCHLORPERAZINE 10 MG/2 ML VIAL IVP PRN (21:53)
[2018-04-28] MEDS ORDERED: INSULIN REGULAR HUMAN 100 UNIT in SODIUM CHLORIDE 0.9% 100ML 99 ML IV SCH (22:00)
[2018-04-28] MEDS ORDERED: D5NS W/20 MEQ KCL 1,000 ML IV SCH (22:00)
[2018-04-28 22:29] LABS: BASOPHILS % (AUTO) 0.3 %; EOSINOPHILS % (AUTO) 0.1 %; LYMPHOCYTES # (AUTO) 0.4 10^3/uL (1.5-3.5); LYMPHOCYTES % (AUTO) 5.4 %; MEAN CORPUSCULAR HEMOGLOBIN 30.6 pg (27.0-31.0); MEAN CORPUSCULAR HGB CONC 33.5 g/dL (32.0-36.0); MEAN CORPUSCULAR VOLUME 91.4 fL (80.0-94.0); MEAN PLATELET VOLUME 7.6 fL (7.4-11.4); MONOCYTES # (AUTO) 0.1 10^3/uL (0.0-1.0); MONOCYTES % (AUTO) 1.5 %; NEUTROPHILS # (AUTO) 7.3 10^3/uL (1.5-6.6); NEUTROPHILS % (AUTO) 92.7 %; PLT - PLATELET COUNT 243 10^3/uL (130-450); RED BLOOD COUNT 4.58 10^6/uL (4.70-6.10); RED CELL DISTRIBUTION WIDTH 12.9 % (12.0-15.0); WHITE BLOOD COUNT 7.8 x10^3/uL (4.8-10.8)
[2018-04-28 22:34] LABS: KETONES, SERUM (ACETEST) MODERATE (NEGATIVE)
[2018-04-28 22:41] LABS: AMYLASE 18 U/L (28-100); PHOSPHORUS 1.9 mg/dL (2.5-4.6)
[2018-04-28 22:42] LABS: CALCIUM 8.5 mg/dL (8.5-10.3); CREATININE 0.6 mg/dL (0.6-1.2); MAGNESIUM 1.7 mg/dL (1.7-2.8)
[2018-04-28 22:54] LABS: HB2 TOTAL 14.9 g/dL; HEMOGLOBIN A1C 1.9 g/dL; HEMOGLOBIN A1C % 13.8 % (4.6-6.2)
[2018-04-28] MEDS ORDERED: SODIUM BICARBONATE 100 MEQ in DEXTROSE 5% 1,000 ML IV SCH (23:00)
[2018-04-28] MEDS ORDERED: METOCLOPRAMIDE 10 MG/2 ML VIAL IVP SCH (23:00)
[2018-04-28] MEDS: PANTOPRAZOLE 40 MG VIAL IVP SCH (23:01)
[2018-04-28] MEDS: SODIUM CHLORIDE FLUSH 0.9% 10 ML SYRINGE IVP PRN (23:03)
[2018-04-28] MEDS: HYDROmorphone 0.5 MG/0.5 ML SYRINGE IVP PRN (23:06)
[2018-04-28] MEDS: D5NS W/20 MEQ KCL 1,000 ML IV SCH (23:08)
[2018-04-28] MEDS ORDERED: SODIUM BICARBONATE 8.4% 50 MEQ/50 ML VIAL ONE (23:24)
[2018-04-29] MEDS ORDERED: METOCLOPRAMIDE 10 MG/2 ML VIAL IVP ONE (00:35)
[2018-04-29] MEDS ORDERED: GI COCKTAIL 120 ML BOTTLE PO PRN (00:36)
[2018-04-29] MEDS: SODIUM CHLORIDE FLUSH 0.9% 10 ML SYRINGE IVP SCH ×4 (00:51→20:32)
[2018-04-29 00:58] LABS: VBG BASE EXCESS -12.5 mmol/L ([, -2 - +2]); VBG PCO2 26.1 mmHg (41-51); VBG PH 7.291 (7.31-7.41); VBG PO2 114.2 mmHg (25-47); VBG TOTAL CO2 13.1 mmol/L (24-29)
[2018-04-29 01:02] LABS: KETONES, SERUM (ACETEST) MODERATE (NEGATIVE)
[2018-04-29 01:06] LABS: BUN - BLOOD UREA NITROGEN 24 mg/dL (6-20); CALCIUM 8.6 mg/dL (8.5-10.3); CARBON DIOXIDE - CO2 16 mmol/L (21-32); CHLORIDE 110 mmol/L (101-111); CREATININE 0.6 mg/dL (0.6-1.2); GFR - MDRD 174 (>89); GLUCOSE 214 mg/dL (70-100); MAGNESIUM 1.8 mg/dL (1.7-2.8); SODIUM 138 mmol/L (135-145)
--- NOTE | 2018-04-29 01:34 | HISTORY & PHYSICAL EXAMINATION ---
DATE OF SERVICE: 04/28/2018 Physician: Zoie Barakat MD HISTORY OF PRESENT ILLNESS: This is a 17-year-old white male with a history of type 1 diabetes with prior episodes of DKA, history of diabetic gastroparesis with frequent abdominal pain and nausea and vomiting. History of a neurogenic bladder, felt to be from peripheral neuropathy of diabetes, which was diagnosed just February 2018. He has a history of possible depression, is taken care of by two aunts as his mother lives out of the state. The patient has history of noncompliance to his insulin and also has alcohol and marijuana use history. The patient presents with a 2-3 day history of nausea, vomiting and abdominal pain, was seen in the E R for this two days ago and received insulin and IV hydration and had improvement in his symptoms wit h antiemetics. He presented today with similar symptoms and today he is in DKA. PAST MEDICAL HISTORY 1. Diabetes type 1. 2. Prior DKA. 3. Diabetic gastroparesis. 4. Probable neurogenic bladder from diabetic neuropathy. SOCIAL HISTORY: The patient lives with one aunt, a visiting aunt is more strict and has better manag ement skills with him. He has had prior no-shows to doctor's offices, but finally was able to be fol lowed in a clinic in [place]. He smokes occasional marijuana, drinks occasional alcohol with occa sional binging. FAMILY HISTORY: No inherited diseases. ALLERGIES: NONE. MEDICATIONS: 1. Lantus and regular insulin, but it is unclear if he takes these. 2. Reglan before meals and at bedtime. 3. Sertraline for depression. It is unclear if he takes this. REVIEW OF SYSTEMS: A comprehensive review of system was performed and the pertinent positives are in the HPI. PHYSICAL EXAMINATION GENERAL: Thin, white male. He is in distress from abdominal pain. VITAL SIGNS: Blood pressure 134/105, heart rate 117 in sinus tachycardia, afebrile, room air saturat ion 100%. HEENT: Reveals dry oral mucosa. NECK: Without JVD or carotid bruits. LUNGS: Clear. HEART: Heart sounds normal. ABDOMEN: Soft. Decreased bowel sounds. Nontender to light palpation. No organomegaly. EXTREMITIES: No clubbing, cyanosis, edema. NEUROLOGIC: Intact. LABORATORY DATA: Sodium 137, potassium 3.6, anion gap 19, BUN 30, creatinine 0.6, glucose 274, magne sium 1.9. Bilirubin 1.7. Normal liver tests. Lipase and amylase normal. Venous blood gas had a pH of 7.216. Serum ketones are moderate. ELECTROCARDIOGRAM: Sinus tachycardia. IMAGING STUDIES: Chest x-ray no active disease. IMPRESSION/DIAGNOSES 1. Diabetic ketoacidosis. 2. Diabetic gastroparesis with recurrent nausea, vomiting and abdominal pain. 3. History of noncompliance. PLAN 1. Admit the patient to the ICU. 2. Begin a DKA protocol using IV insulin drip, saline, additional glucose when sugars are in the 2 00 range, IV bicarbonate if needed. 3. Follow his anion gap, pH, serum ketones and BMP. 4. Use antiemetics and, in his case, regmartha has worked to help with the gastroparesis, which will be now started. 5. No diet until his emesis is improved. CODE STATUS: FULL CODE. DEEP VENOUS THROMBOSIS PROPHYLAXIS: SCDs. ATTESTATION: The patient is expected to be discharged or transferred to another facility within 96 h ours: Yes. TD: 04/29/2018 00:05
[2018-04-29] MEDS: POTASSIUM CHLOR 10 MEQ/100 ML 10 MEQ/100 ML BAG IV SCH ×4 (01:36→05:45)
[2018-04-29] MEDS: HYDROmorphone 0.5 MG/0.5 ML SYRINGE IVP PRN ×8 (01:37→23:18)
[2018-04-29 02:18] LABS: KETONES, SERUM (ACETEST) MODERATE (NEGATIVE)
[2018-04-29 02:21] LABS: BUN - BLOOD UREA NITROGEN 22 mg/dL (6-20); CALCIUM 8.5 mg/dL (8.5-10.3); CARBON DIOXIDE - CO2 16 mmol/L (21-32); CHLORIDE 112 mmol/L (101-111); CREATININE 0.6 mg/dL (0.6-1.2); GFR - MDRD 174 (>89); GLUCOSE 221 mg/dL (70-100); MAGNESIUM 1.7 mg/dL (1.7-2.8); SODIUM 138 mmol/L (135-145)
[2018-04-29] MEDS ORDERED: MAGNESIUM SULFATE 2 GRAM 2 GM/50 ML BAG IV ONE (02:25)
[2018-04-29 06:22] LABS: BASOPHILS % (AUTO) 0.3 %; HGB - HEMOGLOBIN 11.7 g/dL (14.0-18.0); LYMPHOCYTES # (AUTO) 1.6 10^3/uL (1.5-3.5); LYMPHOCYTES % (AUTO) 24.9 %; MEAN CORPUSCULAR HEMOGLOBIN 31.2 pg (27.0-31.0); MEAN CORPUSCULAR HGB CONC 34.8 g/dL (32.0-36.0); MEAN CORPUSCULAR VOLUME 89.8 fL (80.0-94.0); MEAN PLATELET VOLUME 7.4 fL (7.4-11.4); MONOCYTES # (AUTO) 0.4 10^3/uL (0.0-1.0); MONOCYTES % (AUTO) 6.1 %; NEUTROPHILS # (AUTO) 4.3 10^3/uL (1.5-6.6); NEUTROPHILS % (AUTO) 68.7 %; PLT - PLATELET COUNT 233 10^3/uL (130-450); RED BLOOD COUNT 3.74 10^6/uL (4.70-6.10); RED CELL DISTRIBUTION WIDTH 12.9 % (12.0-15.0); WHITE BLOOD COUNT 6.2 x10^3/uL (4.8-10.8)
[2018-04-29 06:30] LABS: CALCIUM 8.2 mg/dL (8.5-10.3); CREATININE 0.3 mg/dL (0.6-1.2)
[2018-04-29] MEDS: D5NS W/20 MEQ KCL 1,000 ML IV SCH ×3 (06:46→20:35)
[2018-04-29 06:52] LABS: MAGNESIUM 2.2 mg/dL (1.7-2.8); PHOSPHORUS 1.3 mg/dL (2.5-4.6)
[2018-04-29] MEDS ORDERED: DEXTROSE 50% ABBOJECT 25 GM/50 ML SYRINGE IVP ONE (07:07)
[2018-04-29] MEDS ORDERED: POTASSIUM PHOSPHATE 21 MMOL in SODIUM CHLORIDE 0.9% 250 ML IV ONE (07:30)
[2018-04-29] MEDS: METOCLOPRAMIDE 10 MG/2 ML VIAL IVP SCH ×2 (07:46→16:01)
[2018-04-29 08:42] LABS: VBG PH 7.348 (7.31-7.41)
[2018-04-29] MEDS: INSULIN GLARGINE 300 UNIT/3 ML PEN SUBQ SCH ×2 (09:05→20:31)
[2018-04-29] MEDS: PANTOPRAZOLE 40 MG VIAL IVP SCH ×2 (09:15→20:32)
[2018-04-29 09:38] LABS: HB2 TOTAL 12.1 g/dL; HEMOGLOBIN A1C 1.64 g/dL; HEMOGLOBIN A1C % 14.6 % (4.6-6.2)
[2018-04-29] MEDS: INSULIN ASPART 300 UNIT/3 ML PEN SUBQ SCH ×3 (12:15→20:32)
--- NOTE | 2018-04-29 15:17 | PROVIDER PROGRESS NOTE ---
Subjective - Prog Note Date Prog Note Date: 04/29/18 Prog Note Time: 14:40 - Subjective Subjective: The patient is somnolent and when he is awake complains of some vague abdominal pain but otherwise has no complaints. He is not showing any signs of fever, chills, shortness of breath, or any other problems at this time. He has not vomited since his admission. Current Medications - Current Medications Current Medications: Active Medications Generic Name Dose Route Start Last Admin Trade Name Freq PRN Reason Stop Dose Admin Hydromorphone HCl 0.5 mg 04/28/18 21:53 04/29/18 12:20 Dilaudid Inj Syringe IVP 0.5 mg Q2H PRN Administration Pain 8 to 10 Potassium Chloride/Dextrose/Sod Cl 1,000 mls @ 150 mls/hr 04/28/18 22:55 12/12 13:29 IV 150 mls/hr .[id number] SHEILA Administration Insulin Aspart 1 - 9 unit 04/29/18 12:00 04/29/18 12:15 Novolog SUBQ 3 unit 0800,1200,1700,2100 SHEILA Administration Protocol Insulin Glargine 20 unit 04/29/18 09:00 04/29/18 09:05 Lantus Solostar SUBQ 20 unit BID SHEILA Administration Metoclopramide HCl 10 mg 04/29/18 08:00 04/29/18 07:46 Reglan Inj IVP 10 mg Q8H SHEILA Administration Multi-Ingredient Mouthwash/Gargle 30 ml 04/29/18 00:36 04/29/18 00:52 PO 30 ml QID PRN Administration Heartburn Pantoprazole Sodium 40 mg 04/28/18 22:00 04/29/18 09:15 Protonix IVP 40 mg BID SHEILA Administration Sertraline HCl 50 mg 04/29/18 21:00 Zoloft PO QPM SHEILA Sodium Chloride 10 ml 04/29/18 01:00 04/29/18 04:36 Normal Saline Flush 0.9% IVP 10 ml 0100,0900,1700 SHEILA Administration Sodium Chloride 10 ml 04/28/18 21:53 04/28/18 23:03 Normal Saline Flush 0.9% IVP 10 ml PRN PRN Administration NEEDED PER PROVIDER ORDERS Insulin Aspart [Novolog] 0 - 12 unit SUBQ TIDWM 04/15/15 Fluoxetine HCl 20 mg PO DAILY 04/29/18 Insulin Glargine [Lantus Solostar] 20 units SUBQ BID 04/29/18 Objective - Vital Signs/Intake & Output Reviewed Vital Signs: Yes Vital Signs: Vital Signs Temp Pulse Resp BP Pulse Ox 04/29/18 14:00 83 12 123/84 H 99 04/29/18 13:00 84 13 117/80 99 04/29/18 12:00 36.6 C 85 13 118/89 H 95 Intake & Output: Intake & Output 04/26/18 04/27/18 04/28/18 04/29/18 23:59 23:59 23:59 23:59 Intake Total 1400 4213.69 Output Total 1300 Balance 1400 2913.69 - Objective General Appearance: positive: No acute distress, Lethargic Eyes Bilateral: positive: Normal inspection, PERRL, EOMI, No lid inflammation, Conjunctivae nml, No scleral icterus ENT: positive: ENT inspection nml, Pharynx nml, No signs of dehydration Neck: positive: Nml inspection, Thyroid nml, No JVD, Trachea midline. negative : Thyromegaly Respiratory: positive: Chest non-tender, No respiratory distress, Breath sounds nml. negative: Wheezes, Rales, Rhonchi Cardiovascular: positive: Regular rate & rhythm, No murmur, No gallop Abdomen: positive: No organomegaly, Nml bowel sounds, No distention, Tenderness. negative: Guarding, Rebound, Mass Back: positive: Nml inspection. negative: CVA tenderness (R), CVA tenderness (L ) Skin: positive: Color nml, No rash, Warm, Dry. negative: Cyanosis Extremities: positive: Non-tender, Full ROM, Nml appearance, No pedal edema Neurologic/Psychiatric: positive: Oriented x3, CN's nml (2-12), Motor nml, Sensation nml, Depressed mood/affect - Lab Results Fish Bones: 04/29/18 06:05 04/29/18 06:05 Other Labs: Lab Results x24hrs 04/29/18 04/29/18 04/29/18 Range/Units 14:20 12:05 11:52 WBC (4.8-10.8) x10^3/uL RBC (4.70-6.10) 10^6/uL Hgb (14.0-18.0) g/dL Hct (42.0-52.0) % MCV (80.0-94.0) fL MCH (27.0-31.0) pg MCHC (32.0-36.0) g/dL RDW (12.0-15.0) % Plt Count (130-450) 10^3/uL MPV (7.4-11.4) fL Neut # (Auto) (1.5-6.6) 10^3/uL Lymph # (Auto) (1.5-3.5) 10^3/uL [place] # (Auto) (0.0-1.0) 10^3/uL Eos # (Auto) (0.0-0.7) 10^3/uL Baso # (Auto) (0.0-0.1) 10^3/uL Absolute Nucleated RBC x10^3/uL Nucleated RBC % /100WBC VBG pH (7.31-7.41) VBG pCO2 (41-51) mmHg VBG pO2 (25-47) mmHg VBG HCO3 (23-28) mmol/L VBG Total CO2 (24-29) mmol/L VBG O2 Saturation (60-80) % VBG Base Excess (-2 - +2) mmol/L Ionized Calcium (1.15-1.33) mmol/L Sodium (135-145) mmol/L Potassium (3.5-5.0) mmol/L Chloride (101-111) mmol/L Carbon Dioxide (21-32) mmol/L Anion Gap (6-13) BUN (6-20) mg/dL Creatinine (0.6-1.2) mg/dL Estimated GFR (MDRD) (>89) Glucose (70-100) mg/dL POC Whole Bld Glucose 209 H (70 - 100) mg/dL Glycated Hemoglobin (4.6-6.2) % Estim Average Glucose (70-100) Calcium (8.5-10.3) mg/dL Phosphorus (2.5-4.6) mg/dL Magnesium (1.7-2.8) mg/dL Troponin I (<0.49) ng/mL Amylase (28-100) U/L Serum Ketones SMALL H SMALL H (NEGATIVE) 04/29/18 04/29/18 04/29/18 Range/Units 10:10 09:16 08:10 WBC (4.8-10.8) x10^3/uL RBC (4.70-6.10) 10^6/uL Hgb (14.0-18.0) g/dL Hct (42.0-52.0) % MCV (80.0-94.0) fL MCH (27.0-31.0) pg MCHC (32.0-36.0) g/dL RDW (12.0-15.0) % Plt Count (130-450) 10^3/uL MPV (7.4-11.4) fL Neut # (Auto) (1.5-6.6) 10^3/uL Lymph # (Auto) (1.5-3.5) 10^3/uL [place] # (Auto) (0.0-1.0) 10^3/uL Eos # (Auto) (0.0-0.7) 10^3/uL Baso # (Auto) (0.0-0.1) 10^3/uL Absolute Nucleated RBC x10^3/uL Nucleated RBC % /100WBC VBG pH 7.348 (7.31-7.41) VBG pCO2 (41-51) mmHg VBG pO2 (25-47) mmHg VBG HCO3 (23-28) mmol/L VBG Total CO2 (24-29) mmol/L VBG O2 Saturation (60-80) % VBG Base Excess (-2 - +2) mmol/L Ionized Calcium 1.16 (1.15-1.33) mmol/L Sodium (135-145) mmol/L Potassium (3.5-5.0) mmol/L Chloride (101-111) mmol/L Carbon Dioxide (21-32) mmol/L Anion Gap (6-13) BUN (6-20) mg/dL Creatinine (0.6-1.2) mg/dL Estimated GFR (MDRD) (>89) Glucose (70-100) mg/dL POC Whole Bld Glucose 180 H (70 - 100) mg/dL Glycated Hemoglobin (4.6-6.2) % Estim Average Glucose (70-100) Calcium (8.5-10.3) mg/dL Phosphorus (2.5-4.6) mg/dL Magnesium (1.7-2.8) mg/dL Troponin I (<0.49) ng/mL Amylase (28-100) U/L Serum Ketones SMALL H (NEGATIVE) 04/29/18 04/29/18 04/29/18 Range/Units 08:10 07:49 07:03 WBC (4.8-10.8) x10^3/uL RBC (4.70-6.10) 10^6/uL Hgb (14.0-18.0) g/dL Hct (42.0-52.0) % MCV (80.0-94.0) fL MCH (27.0-31.0) pg MCHC (32.0-36.0) g/dL RDW (12.0-15.0) % Plt Count (130-450) 10^3/uL MPV (7.4-11.4) fL Neut # (Auto) (1.5-6.6) 10^3/uL Lymph # (Auto) (1.5-3.5) 10^3/uL [place] # (Auto) (0.0-1.0) 10^3/uL Eos # (Auto) (0.0-0.7) 10^3/uL Baso # (Auto) (0.0-0.1) 10^3/uL Absolute Nucleated RBC x10^3/uL Nucleated RBC % /100WBC VBG pH (7.31-7.41) VBG pCO2 (41-51) mmHg VBG pO2 (25-47) mmHg VBG HCO3 (23-28) mmol/L VBG Total CO2 (24-29) mmol/L VBG O2 Saturation (60-80) % VBG Base Excess (-2 - +2) mmol/L Ionized Calcium (1.15-1.33) mmol/L Sodium (135-145) mmol/L Potassium (3.5-5.0) mmol/L Chloride (101-111) mmol/L Carbon Dioxide (21-32) mmol/L Anion Gap (6-13) BUN (6-20) mg/dL Creatinine (0.6-1.2) mg/dL Estimated GFR (MDRD) (>89) Glucose (70-100) mg/dL POC Whole Bld Glucose 160 H 78 (70 - 100) mg/dL Glycated Hemoglobin (4.6-6.2) % Estim Average Glucose (70-100) Calcium (8.5-10.3) mg/dL Phosphorus (2.5-4.6) mg/dL Magnesium (1.7-2.8) mg/dL Troponin I (<0.49) ng/mL Amylase (28-100) U/L Serum Ketones SMALL H (NEGATIVE) 04/29/18 04/29/18 04/29/18 Range/Units 06:45 06:05 06:05 WBC (4.8-10.8) x10^3/uL RBC (4.70-6.10) 10^6/uL Hgb (14.0-18.0) g/dL Hct (42.0-52.0) % MCV (80.0-94.0) fL MCH (27.0-31.0) pg MCHC (32.0-36.0) g/dL RDW (12.0-15.0) % Plt Count (130-450) 10^3/uL MPV (7.4-11.4) fL Neut # (Auto) (1.5-6.6) 10^3/uL Lymph # (Auto) (1.5-3.5) 10^3/uL [place] # (Auto) (0.0-1.0) 10^3/uL Eos # (Auto) (0.0-0.7) 10^3/uL Baso # (Auto) (0.0-0.1) 10^3/uL Absolute Nucleated RBC x10^3/uL Nucleated RBC % /100WBC VBG pH (7.31-7.41) VBG pCO2 (41-51) mmHg VBG pO2 (25-47) mmHg VBG HCO3 (23-28) mmol/L VBG Total CO2 (24-29) mmol/L VBG O2 Saturation (60-80) % VBG Base Excess (-2 - +2) mmol/L Ionized Calcium (1.15-1.33) mmol/L Sodium (135-145) mmol/L Potassium (3.5-5.0) mmol/L Chloride (101-111) mmol/L Carbon Dioxide (21-32) mmol/L Anion Gap (6-13) BUN (6-20) mg/dL Creatinine (0.6-1.2) mg/dL Estimated GFR (MDRD) (>89) Glucose (70-100) mg/dL POC Whole Bld Glucose 79 (70 - 100) mg/dL Glycated Hemoglobin 14.6 H (4.6-6.2) % Estim Average Glucose 372 H (70-100) Calcium (8.5-10.3) mg/dL Phosphorus 1.3 L (2.5-4.6) mg/dL Magnesium 2.2 (1.7-2.8) mg/dL Troponin I (<0.49) ng/mL Amylase (28-100) U/L Serum Ketones (NEGATIVE) 04/29/18 04/29/18 04/29/18 Range/Units 06:05 06:05 06:05 WBC 6.2 (4.8-10.8) x10^3/uL RBC 3.74 L (4.70-6.10) 10^6/uL Hgb 11.7 L (14.0-18.0) g/dL Hct 33.6 L (42.0-52.0) % MCV 89.8 (80.0-94.0) fL MCH 31.2 H (27.0-31.0) pg MCHC 34.8 (32.0-36.0) g/dL RDW 12.9 (12.0-15.0) % Plt Count 233 (130-450) 10^3/uL MPV 7.4 (7.4-11.4) fL Neut # (Auto) 4.3 (1.5-6.6) 10^3/uL Lymph # (Auto) 1.6 (1.5-3.5) 10^3/uL [place] # (Auto) 0.4 (0.0-1.0) 10^3/uL Eos # (Auto) 0.0 (0.0-0.7) 10^3/uL Baso # (Auto) 0.0 (0.0-0.1) 10^3/uL Absolute Nucleated RBC 0.00 x10^3/uL Nucleated RBC % 0.0 /100WBC VBG pH (7.31-7.41) VBG pCO2 (41-51) mmHg VBG pO2 (25-47) mmHg VBG HCO3 (23-28) mmol/L VBG Total CO2 (24-29) mmol/L VBG O2 Saturation (60-80) % VBG Base Excess (-2 - +2) mmol/L Ionized Calcium (1.15-1.33) mmol/L Sodium 137 (135-145) mmol/L Potassium 3.6 (3.5-5.0) mmol/L Chloride 112 H (101-111) mmol/L Carbon Dioxide 22 (21-32) mmol/L Anion Gap 3.0 L (6-13) BUN 17 (6-20) mg/dL Creatinine 0.3 L (0.6-1.2) mg/dL Estimated GFR (MDRD) 386 (>89) Glucose 107 H (70-100) mg/dL POC Whole Bld Glucose (70 - 100) mg/dL Glycated Hemoglobin (4.6-6.2) % Estim Average Glucose (70-100) Calcium 8.2 L (8.5-10.3) mg/dL Phosphorus (2.5-4.6) mg/dL Magnesium (1.7-2.8) mg/dL Troponin I (<0.49) ng/mL Amylase (28-100) U/L Serum Ketones SMALL H (NEGATIVE) 04/29/18 04/29/18 04/29/18 Range/Units 05:04 04:04 03:54 WBC (4.8-10.8) x10^3/uL RBC (4.70-6.10) 10^6/uL Hgb (14.0-18.0) g/dL Hct (42.0-52.0) % MCV (80.0-94.0) fL MCH (27.0-31.0) pg MCHC (32.0-36.0) g/dL RDW (12.0-15.0) % Plt Count (130-450) 10^3/uL MPV (7.4-11.4) fL Neut # (Auto) (1.5-6.6) 10^3/uL Lymph # (Auto) (1.5-3.5) 10^3/uL [place] # (Auto) (0.0-1.0) 10^3/uL Eos # (Auto) (0.0-0.7) 10^3/uL Baso # (Auto) (0.0-0.1) 10^3/uL Absolute Nucleated RBC x10^3/uL Nucleated RBC % /100WBC VBG pH (7.31-7.41) VBG pCO2 (41-51) mmHg VBG pO2 (25-47) mmHg VBG HCO3 (23-28) mmol/L VBG Total CO2 (24-29) mmol/L VBG O2 Saturation (60-80) % VBG Base Excess (-2 - +2) mmol/L Ionized Calcium (1.15-1.33) mmol/L Sodium (135-145) mmol/L Potassium (3.5-5.0) mmol/L Chloride (101-111) mmol/L Carbon Dioxide (21-32) mmol/L Anion Gap (6-13) BUN (6-20) mg/dL Creatinine (0.6-1.2) mg/dL Estimated GFR (MDRD) (>89) Glucose (70-100) mg/dL POC Whole Bld Glucose 138 H 179 H (70 - 100) mg/dL Glycated Hemoglobin (4.6-6.2) % Estim Average Glucose (70-100) Calcium (8.5-10.3) mg/dL Phosphorus (2.5-4.6) mg/dL Magnesium (1.7-2.8) mg/dL Troponin I (<0.49) ng/mL Amylase (28-100) U/L Serum Ketones SMALL H (NEGATIVE) 04/29/18 04/29/18 04/29/18 Range/Units 02:50 02:14 02:05 WBC (4.8-10.8) x10^3/uL RBC (4.70-6.10) 10^6/uL Hgb (14.0-18.0) g/dL Hct (42.0-52.0) % MCV (80.0-94.0) fL MCH (27.0-31.0) pg MCHC (32.0-36.0) g/dL RDW (12.0-15.0) % Plt Count (130-450) 10^3/uL MPV (7.4-11.4) fL Neut # (Auto) (1.5-6.6) 10^3/uL Lymph # (Auto) (1.5-3.5) 10^3/uL [place] # (Auto) (0.0-1.0) 10^3/uL Eos # (Auto) (0.0-0.7) 10^3/uL Baso # (Auto) (0.0-0.1) 10^3/uL Absolute Nucleated RBC x10^3/uL Nucleated RBC % /100WBC VBG pH (7.31-7.41) VBG pCO2 (41-51) mmHg VBG pO2 (25-47) mmHg VBG HCO3 (23-28) mmol/L VBG Total CO2 (24-29) mmol/L VBG O2 Saturation (60-80) % VBG Base Excess (-2 - +2) mmol/L Ionized Calcium (1.15-1.33) mmol/L Sodium 138 (135-145) mmol/L Potassium 3.8 (3.5-5.0) mmol/L Chloride 112 H (101-111) mmol/L Carbon Dioxide 16 L (21-32) mmol/L Anion Gap 10.0 (6-13) BUN 22 H (6-20) mg/dL Creatinine 0.6 (0.6-1.2) mg/dL Estimated GFR (MDRD) 174 (>89) Glucose 221 H (70-100) mg/dL POC Whole Bld Glucose 200 H 198 H (70 - 100) mg/dL Glycated Hemoglobin (4.6-6.2) % Estim Average Glucose (70-100) Calcium 8.5 (8.5-10.3) mg/dL Phosphorus (2.5-4.6) mg/dL Magnesium 1.7 (1.7-2.8) mg/dL Troponin I (<0.49) ng/mL Amylase (28-100) U/L Serum Ketones MODERATE H (NEGATIVE) 04/29/18 04/29/18 04/28/18 Range/Units 00:40 00:40 22:23 WBC (4.8-10.8) x10^3/uL RBC (4.70-6.10) 10^6/uL Hgb (14.0-18.0) g/dL Hct (42.0-52.0) % MCV (80.0-94.0) fL MCH (27.0-31.0) pg MCHC (32.0-36.0) g/dL RDW (12.0-15.0) % Plt Count (130-450) 10^3/uL MPV (7.4-11.4) fL Neut # (Auto) (1.5-6.6) 10^3/uL Lymph # (Auto) (1.5-3.5) 10^3/uL [place] # (Auto) (0.0-1.0) 10^3/uL Eos # (Auto) (0.0-0.7) 10^3/uL Baso # (Auto) (0.0-0.1) 10^3/uL Absolute Nucleated RBC x10^3/uL Nucleated RBC % /100WBC VBG pH 7.291 L (7.31-7.41) VBG pCO2 26.1 L (41-51) mmHg VBG pO2 114.2 H (25-47) mmHg VBG HCO3 12.3 L (23-28) mmol/L VBG Total CO2 13.1 L (24-29) mmol/L VBG O2 Saturation 98.0 H (60-80) % VBG Base Excess -12.5 L (-2 - +2) mmol/L Ionized Calcium (1.15-1.33) mmol/L Sodium 138 (135-145) mmol/L Potassium 3.4 L (3.5-5.0) mmol/L Chloride 110 (101-111) mmol/L Carbon Dioxide 16 L (21-32) mmol/L Anion Gap 12.0 (6-13) BUN 24 H (6-20) mg/dL Creatinine 0.6 (0.6-1.2) mg/dL Estimated GFR (MDRD) 174 (>89) Glucose 214 H (70-100) mg/dL POC Whole Bld Glucose (70 - 100) mg/dL Glycated Hemoglobin (4.6-6.2) % Estim Average Glucose (70-100) Calcium 8.6 (8.5-10.3) mg/dL Phosphorus (2.5-4.6) mg/dL Magnesium 1.8 (1.7-2.8) mg/dL Troponin I < 0.04 (<0.49) ng/mL Amylase (28-100) U/L Serum Ketones MODERATE H (NEGATIVE) 04/28/18 04/28/18 04/28/18 Range/Units 22:23 22:23 22:23 WBC 7.8 (4.8-10.8) x10^3/uL RBC 4.58 L (4.70-6.10) 10^6/uL Hgb 14.0 (14.0-18.0) g/dL Hct 41.9 L (42.0-52.0) % MCV 91.4 (80.0-94.0) fL MCH 30.6 (27.0-31.0) pg MCHC 33.5 (32.0-36.0) g/dL RDW 12.9 (12.0-15.0) % Plt Count 243 (130-450) 10^3/uL MPV 7.6 (7.4-11.4) fL Neut # (Auto) 7.3 H (1.5-6.6) 10^3/uL Lymph # (Auto) 0.4 L (1.5-3.5) 10^3/uL [place] # (Auto) 0.1 (0.0-1.0) 10^3/uL Eos # (Auto) 0.0 (0.0-0.7) 10^3/uL Baso # (Auto) 0.0 (0.0-0.1) 10^3/uL Absolute Nucleated RBC 0.00 x10^3/uL Nucleated RBC % 0.0 /100WBC VBG pH (7.31-7.41) VBG pCO2 (41-51) mmHg VBG pO2 (25-47) mmHg VBG HCO3 (23-28) mmol/L VBG Total CO2 (24-29) mmol/L VBG O2 Saturation (60-80) % VBG Base Excess (-2 - +2) mmol/L Ionized Calcium (1.15-1.33) mmol/L Sodium (135-145) mmol/L Potassium (3.5-5.0) mmol/L Chloride (101-111) mmol/L Carbon Dioxide (21-32) mmol/L Anion Gap (6-13) BUN (6-20) mg/dL Creatinine (0.6-1.2) mg/dL Estimated GFR (MDRD) (>89) Glucose Cancelled (70-100) mg/dL POC Whole Bld Glucose (70 - 100) mg/dL Glycated Hemoglobin 13.8 H (4.6-6.2) % Estim Average Glucose 349 H (70-100) Calcium (8.5-10.3) mg/dL Phosphorus 1.9 L (2.5-4.6) mg/dL Magnesium Cancelled (1.7-2.8) mg/dL Troponin I (<0.49) ng/mL Amylase 18 L (28-100) U/L Serum Ketones MODERATE H (NEGATIVE) 04/28/18 04/28/18 Range/Units 22:23 22:09 WBC (4.8-10.8) x10^3/uL RBC (4.70-6.10) 10^6/uL Hgb (14.0-18.0) g/dL Hct (42.0-52.0) % MCV (80.0-94.0) fL MCH (27.0-31.0) pg MCHC (32.0-36.0) g/dL RDW (12.0-15.0) % Plt Count (130-450) 10^3/uL MPV (7.4-11.4) fL Neut # (Auto) (1.5-6.6) 10^3/uL Lymph # (Auto) (1.5-3.5) 10^3/uL [place] # (Auto) (0.0-1.0) 10^3/uL Eos # (Auto) (0.0-0.7) 10^3/uL Baso # (Auto) (0.0-0.1) 10^3/uL Absolute Nucleated RBC x10^3/uL Nucleated RBC % /100WBC VBG pH (7.31-7.41) VBG pCO2 (41-51) mmHg VBG pO2 (25-47) mmHg VBG HCO3 (23-28) mmol/L VBG Total CO2 (24-29) mmol/L VBG O2 Saturation (60-80) % VBG Base Excess (-2 - +2) mmol/L Ionized Calcium (1.15-1.33) mmol/L Sodium 137 (135-145) mmol/L Potassium 3.6 (3.5-5.0) mmol/L Chloride 108 (101-111) mmol/L Carbon Dioxide 11 L* (21-32) mmol/L Anion Gap 18.0 H (6-13) BUN 25 H (6-20) mg/dL Creatinine 0.6 (0.6-1.2) mg/dL Estimated GFR (MDRD) 174 (>89) Glucose 229 H (70-100) mg/dL POC Whole Bld Glucose 225 H (70 - 100) mg/dL Glycated Hemoglobin (4.6-6.2) % Estim Average Glucose (70-100) Calcium 8.5 (8.5-10.3) mg/dL Phosphorus (2.5-4.6) mg/dL Magnesium 1.7 (1.7-2.8) mg/dL Troponin I (<0.49) ng/mL Amylase (28-100) U/L Serum Ketones (NEGATIVE) Assessment/Plan - Problem List (1) DKA (diabetic ketoacidoses) Impression: Patient has a history of multiple admissions for diabetic ketoacidosis. In searching his medical records it appears that the patient has not had a visit with an outpatient provider for well over a year. He also has a history of noncompliance so this is not especially surprising. He is no longer on an insulin drip and is being covered with Lantus and a sliding scale and when he is more awake and alert we will discuss his plans for outpatient treatment. Qualifiers: Diabetes mellitus type: type 1 Diabetes mellitus complication detail: without coma Qualified Code(s): E10.10 - Type 1 diabetes mellitus with ketoacidosis without coma (2) Diabetic gastroparesis Impression: The patient is a 17-year-old male who is 5 foot 6 inches tall and weighs only 46 kg. He has a BMI of 16.4. I will request a nutritional consult. Again, I believe that most of the problems the patient is experiencing have to do with noncompliance and he will be discharged home with Reglan. (3) Non compliance with medical treatment Impression: In speaking with the patient's family member she notes that he spends almost all his day in bed. There may be a strong depressive component to this and I will ask social work to investigate that angle. I have once again counseled the patient on the importance of compliance with this medication regimen.
[2018-04-29 20:29] LABS: BILIRUBIN,URINE NEGATIVE (NEGATIVE); GLUCOSE, URINE (UA) >=1000 mg/dL (NEGATIVE); KETONES,URINE (UA) 40 mg/dL (NEGATIVE); LEUKOCYTE ESTERASE, URINE MODERATE (NEGATIVE); NITRITE,URINE NEGATIVE (NEGATIVE); OCCULT BLOOD,URINE NEGATIVE (NEGATIVE); PROTEIN,URINE NEGATIVE (NEGATIVE); UROBILINOGEN,URINE 0.2 (NORMAL) E.U./dL (NORMAL)
[2018-04-29] MEDS: METOCLOPRAMIDE 10 MG TABLET PO SCH (20:32)
[2018-04-29 20:46] LABS: CLARITY,URINE CLEAR (CLEAR)
[2018-04-29 20:48] LABS: BACTERIA,URINE Moderate /HPF (None Seen); MUCUS,URINE Few Strands; SQUAMOUS EPITHELIAL CELL,UR NONE SEEN (<= Few); YEAST,URINE PRESENT
[2018-04-29] MEDS ORDERED: SERTRALINE 50 MG TABLET PO SCH (21:00)
[2018-04-30] MEDS: HYDROmorphone 0.5 MG/0.5 ML SYRINGE IVP PRN ×4 (04:51→14:55)
[2018-04-30] MEDS: SODIUM CHLORIDE FLUSH 0.9% 10 ML SYRINGE IVP PRN ×2 (04:52→12:16)
[2018-04-30 05:25] LABS: BASOPHILS % (AUTO) 0.7 %; EOSINOPHILS % (AUTO) 1.1 %; HGB - HEMOGLOBIN 12.3 g/dL (14.0-18.0); LYMPHOCYTES % (AUTO) 47.3 %; MEAN CORPUSCULAR HGB CONC 34.7 g/dL (32.0-36.0); MEAN CORPUSCULAR VOLUME 89.2 fL (80.0-94.0); MEAN PLATELET VOLUME 7.5 fL (7.4-11.4); MONOCYTES # (AUTO) 0.2 10^3/uL (0.0-1.0); MONOCYTES % (AUTO) 5.3 %; NEUTROPHILS # (AUTO) 1.9 10^3/uL (1.5-6.6); NEUTROPHILS % (AUTO) 45.6 %; PLT - PLATELET COUNT 216 10^3/uL (130-450); RED BLOOD COUNT 3.97 10^6/uL (4.70-6.10); RED CELL DISTRIBUTION WIDTH 12.5 % (12.0-15.0); WHITE BLOOD COUNT 4.2 x10^3/uL (4.8-10.8)
[2018-04-30 05:27] LABS: CALCIUM 8.4 mg/dL (8.5-10.3); CREATININE 0.3 mg/dL (0.6-1.2)
[2018-04-30 05:33] LABS: MAGNESIUM 1.7 mg/dL (1.7-2.8); PHOSPHORUS 2.3 mg/dL (2.5-4.6)
[2018-04-30 05:35] LABS: VBG PH 7.389 (7.31-7.41)
[2018-04-30] MEDS: METOCLOPRAMIDE 10 MG TABLET PO SCH ×3 (06:39→17:00)
[2018-04-30] MEDS ORDERED: POTASSIUM CHLORIDE 20 MEQ TABLET PO SCH (08:00)
[2018-04-30] MEDS: INSULIN ASPART 300 UNIT/3 ML PEN SUBQ SCH ×3 (08:45→17:04)
[2018-04-30] MEDS ORDERED: POLYETHYLENE GLYCOL 3350 17 GM PACKET PO SCH (09:00)
[2018-04-30] MEDS: MAGNESIUM OXIDE 400 MG TABLET PO SCH ×2 (09:21→14:57)
[2018-04-30] MEDS: PANTOPRAZOLE 40 MG VIAL IVP SCH (09:22)
[2018-04-30] MEDS: INSULIN GLARGINE 300 UNIT/3 ML PEN SUBQ SCH (09:24)
[2018-04-30] MEDS: SODIUM CHLORIDE FLUSH 0.9% 10 ML SYRINGE IVP SCH ×2 (09:25→17:04)
[2018-04-30] MEDS ORDERED: FLUoxetine 10 MG CAPSULE PO SCH (10:00)
[2018-04-30] MEDS: NEUTRA-PHOS 250 MG TABLET PO SCH ×2 (11:18→13:44)
[2018-04-30] MEDS: D5NS W/20 MEQ KCL 1,000 ML IV SCH (13:44)
--- NOTE | 2018-04-30 15:50 | DISCHARGE SUMMARY ---
Discharge Summary Admit Date: 04/28/18 Discharge Date: 04/30/18 Discharging Provider: Sahra Donaldson DO Primary Care Provider: Ailin Kumar - DIAGNOSES Admission Diagnoses: 1. Diabetic ketoacidosis 2. Diabetic gastroparesis with recurrent nausea, vomiting and abdominal pain. 3. History of noncompliance Discharge Diagnoses with Status of Each Condition: 1. Diabetic ketoacidosis- resolved. Patient has a history of multiple admissions for diabetic ketoacidosis. In searching his medical records it appears that the patient has not had a visit with an outpatient provider for well over a year. He also has a history of noncompliance so this is not especially surprising. He is no longer on an insulin drip and is being covered with Lantus and a sliding scale and when he is more awake and alert we will discuss his plans for outpatient treatment. The patient was placed in the intensive care unit on an insulin drip and his blood sugars returned to normal within 12 hours. His acidosis is resolving. 2. Diabetic gastroparesis with recurrent nausea, vomiting and abdominal pain- The patient is a 17-year-old male who is 5 foot 6 inches tall and weighs only 46 kg. He has a BMI of 16.4. I will request a nutritional consult. Again, I believe that most of the problems the patient is experiencing have to do with noncompliance and he will be discharged home with Reglan. 3. History of noncompliance- In speaking with the patient's sister she notes that he spends almost all his day in bed. There may be a strong depressive component to this and I will ask social work to investigate that angle. I have once again counseled the patient on the importance of compliance with this medication regimen. 4. Depression- I had a long discussion today with the patient regarding his depression. He was started on Zoloft but became quickly noncompliant when he got home. He spoke to his provider who started him on Prozac because he fears that he might miss doses. The patient says he wants to stay on Prozac and so we will continue him on this, even at discharge. I have also mentioned cognitive behavioral therapy to the patient and he says he is open to that. I will asked the social workers to get recommendations for community counselors that he might be able to speak with. - HPI History of Present Illness: The patient is a 17-year-old white male with a history of type 1 diabetes with prior episodes of DKA, history of diabetic gastroparesis with frequent abdominal pain and nausea and vomiting. Patient has a history of a neurogenic bladder, felt to be from peripheral neuropathy of diabetes which was diagnosed in February 2018. He also has a history of depression is being taken care of by 2 and as his mother lives [place] of [place]. Patient has a history of noncompliance with his insulin and also has alcohol and marijuana use history. He presents today with a 2-3 day history of nausea, vomiting and abdominal pain. He was seen in the emergency room first 2 days ago received insulin and IV hydration and had improvement in symptoms with antiemetics. Presented today with similar symptoms today and is in DKA. - HOSPITAL COURSE Hospital Course: The patient was admitted to the intensive care unit and placed on an insulin drip. His abdominal pain started to resolve almost immediately and he was able take some clear liquids. Patient's blood sugars returned to normal limits within about 10 hours and the insulin drip was stopped and the patient was placed on 8 insulin sliding scale. His abdominal pain continued to improve until today when he feels that he is ready to go home. He has had both breakfast and lunch without any significant difficulty. - ALLERGIES Allergies/Adverse Reactions: Allergies Allergy/AdvReac Type Severity Reaction Status Date / Time No Known Drug Allergies Allergy Verified 04/28/18 20:08 - MEDICATIONS Home Medications: Ambulatory Orders Medication Instructions Recorded Confirmed Insulin Aspart [Novolog] 0 - 12 unit SUBQ TIDWM 04/15/15 04/28/18 Fluoxetine HCl 20 mg PO DAILY 04/29/18 04/29/18 Insulin Glargine [Lantus Solostar] 20 units SUBQ BID 04/29/18 04/29/18 - PHYSICAL EXAM AT DISCHARGE General Appearance: positive: No acute distress, Alert Eyes Bilateral: positive: Normal inspection, PERRL, EOMI, No lid inflammation, Conjunctivae nml, No scleral icterus ENT: positive: ENT inspection nml, Pharynx nml, No signs of dehydration Neck: positive: Nml inspection, Thyroid nml, No JVD, Trachea midline. negative : Thyromegaly Respiratory: positive: Chest non-tender, No respiratory distress, Breath sounds nml. negative: Wheezes, Rales, Rhonchi Cardiovascular: positive: Regular rate & rhythm, No murmur, No gallop Peripheral Pulses: positive: 1+ Abdomen: positive: Non-tender, No organomegaly, Nml bowel sounds, No distention. negative: Guarding, Rebound Back: positive: Nml inspection. negative: CVA tenderness (R), CVA tenderness (L ) Skin: positive: Color nml, No rash, Warm, Dry. negative: Cyanosis Extremities: positive: Non-tender, Full ROM, Nml appearance, No pedal edema Neurologic/Psychiatric: positive: Oriented x3, CN's nml (2-12), Motor nml, Sensation nml, Mood/affect nml - LABS Result Diagrams: 04/30/18 04:46 04/30/18 04:46 - FOLLOW UP Follow Up: Follow-up with Ms. Kumar next week. - TIME SPENT Time Spent in Discharge (Minutes): 25
--- NOTE | 2018-04-30 15:56 | Discharge Plan ---
Discharge Plan Disposition: 01 Home, Self Care Condition: Stable Prescriptions: Metoclopramide [Reglan] 10 mg PO ACHS #60 tablet Diet: Diabetic Activity Restrictions: Activity as Tolerated Shower Restrictions: No Driving Restrictions: No Weight Bearing: Full Weight Instruction Topics: ED Diabetic Gastroparesis Additional Instructions or Follow Up instructions: Please work on your depression and take your prozac No Smoking: If you smoke, Please STOP! Call for help. Follow-up with: Ailin Kumar DNP [Primary Care Provider] -
[2018-04-30 17:07] VITALS: BP 126/89
== END 2018-04-30 17:15 | disposition home or self-care (01) | DRG 639 ==
LOC: ED 20:04 → ICU 21:53
PROVIDERS: ADMIT Internal Medicine; ATTEND Hospitalist
DX: E10.10 Type 1 diabetes mellitus with ketoacidosis without coma (principal); E10.43 Type 1 diabetes mellitus with diabetic autonomic (poly)neuropathy; K31.84 Gastroparesis; E10.42 Type 1 diabetes mellitus with diabetic polyneuropathy; N31.8 Other neuromuscular dysfunction of bladder; F32.9 Major depressive disorder, single episode, unspecified; T38.3X6A Underdosing of insulin and oral hypoglycemic [antidiabetic] drugs, initial encounter; T43.226A Underdosing of selective serotonin reuptake inhibitors, initial encounter; Z91.19 Patient's noncompliance with other medical treatment and regimen; Z79.4 Long term (current) use of insulin; Z79.899 Other long term (current) drug therapy; Z72.89 Other problems related to lifestyle
CPT/HCPCS: 36415; 74022; 80048; 80053; 81001; 81003; 82009; 82040; 82150; 82330; 82803; 82947; 83036; 83690; 83735; 84100; 84484; 85025; 87086; 87150; 96361; 96374; 96375; 99283; 99285

== ENCOUNTER 2018-05-08 20:15 | Emergency (ER) | payer MEDICAID ==
[2018-05-08] MEDS ORDERED: SODIUM CHLORIDE 0.9% 1,000 ML IV ONE ×2 (20:22)
[2018-05-08] MEDS ORDERED: PROMETHAZINE INJ 25 MG in SODIUM CHLORIDE 0.9% 50 ML IV STA (20:32)
[2018-05-08] MEDS ORDERED: diphenhydrAMINE INJ 50 MG/ML VIAL IVP STA (20:33)
--- NOTE | 2018-05-08 20:44 | ED Physician Documentation ---
History of Present Illness - Stated complaint Stated Complaint: N/V/ABD PX - Chief complaint Chief Complaint: General - History obtained from History obtained from: Patient - Additonal information Additional information: 17-year-old male with a history of insulin-dependent diabetes and gastroparesis and chronic abdominal pain with nausea and vomiting presents the emergency department with his typical generalized abdominal pain with persistent nausea and vomiting for the past day. The patient does report that he has been able to take his medications. No changes in the patient's Chronic pain today, the patient denies blood in the vomit or stools. The patient denies any focal area of abdominal pain. Symptoms are described as moderate. No other associated symptoms. No other relieving factors Review of Systems Constitutional: denies: Fever, Chills Eyes: denies: Discharge Ears: denies: Ear pain Nose: denies: Congestion Throat: denies: Sore throat Cardiac: denies: Chest pain / pressure Respiratory: denies: Dyspnea GI: reports: Abdominal Pain, Nausea, Vomiting. denies: Diarrhea, Hematemesis : denies: Dysuria Skin: denies: Rash Musculoskeletal: denies: Neck pain Neurologic: denies: Generalized weakness Psychiatric: denies: Depressed Immunocompromised: denies: Chemotherapy PD PAST MEDICAL HISTORY - Past Medical History Cardiovascular: None Respiratory: None Neuro: Peripheral neuropathy Endocrine/Autoimmune: Type 1 diabetes GI: None : None HEENT: None Psych: None Musculoskeletal: None Derm: None - Past Surgical History Past Surgical History: No - Present Medications Home Medications: Ambulatory Orders Medication Instructions Recorded Confirmed Insulin Aspart [Novolog] 0 - 12 unit SUBQ TIDWM 04/15/15 04/28/18 Fluoxetine HCl 20 mg PO DAILY 04/29/18 04/29/18 Insulin Glargine [Lantus Solostar] 20 units SUBQ BID 04/29/18 04/29/18 Metoclopramide [Reglan] 10 mg PO ACHS #60 tablet 04/30/18 - Allergies Allergies/Adverse Reactions: Allergies Allergy/AdvReac Type Severity Reaction Status Date / Time No Known Drug Allergies Allergy Verified 05/08/18 20:27 - Social History Does the pt smoke?: No Smoking Status: Never smoker Does the pt drink ETOH?: Yes Does the pt have substance abuse?: No - Immunizations Immunizations are current?: Yes - POLST Patient has POLST: No POLST Status: Full Code PD ED PE NORMAL - General General: Alert and oriented X 3, No acute distress - HEENT HEENT: Atraumatic, PERRL, EOMI, Ears normal - Neck Neck: Supple, no meningeal sign - Cardiac Cardiac: RRR, Strong equal pulses - Respiratory Respiratory: No respiratory distress - Abdomen Abdomen: Non distended. No: Non tender (The patient has generalized abdominal pain, there is no rebound or peritoneal signs) - Back Back: No CVA TTP - Derm Derm: Normal color - Extremities Extremities: No deformity - Neuro 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, Normal speech - Psych Psych: Normal affect Results - Vitals Vitals: Vital Signs - 24 hr 05/08/18 05/08/18 20:22 22:35 Temperature 36.7 C Heart Rate 87 93 Respiratory 18 18 Rate Blood Pressure 132/87 H 164/121 H O2 Saturation 97 100 Oxygen O2 Source Room air - Labs Labs: Laboratory Tests 05/08/18 05/08/18 05/08/18 20:37 20:37 20:37 WBC 4.5 L RBC 4.29 L Hgb 13.0 L Hct 38.7 L MCV 90.3 MCH 30.4 MCHC 33.7 RDW 12.3 Plt Count 220 MPV 7.8 Neut # (Auto) 3.2 Lymph # (Auto) 0.9 L [place] # (Auto) 0.2 Eos # (Auto) 0.0 Baso # (Auto) 0.0 Absolute Nucleated RBC 0.00 Nucleated RBC % 0.0 VBG pH 7.388 VBG pCO2 44.8 VBG pO2 42.2 VBG HCO3 26.4 VBG Total CO2 27.8 VBG O2 Saturation 78.6 VBG Base Excess 1.0 Sodium 129 L Potassium 4.4 Chloride 95 L Carbon Dioxide 26 Anion Gap 8.0 BUN 13 Creatinine 0.6 Estimated GFR (MDRD) 174 Glucose 565 H* POC Whole Bld Glucose Calcium 9.3 Total Bilirubin 0.7 AST 16 ALT 15 Alkaline Phosphatase 74 Total Protein 7.0 Albumin 3.6 Globulin 3.4 Albumin/Globulin Ratio 1.1 Lipase 27 Urine Color Urine Clarity Urine pH Ur Specific [place] Urine Protein Urine Glucose (UA) Urine Ketones Urine Occult Blood Urine Nitrite Urine Bilirubin Urine Urobilinogen Ur Leukocyte Esterase Urine RBC Urine WBC Ur Squamous Epith Cells Urine Bacteria Ur Microscopic Review Urine Culture Comments Serum Ketones SMALL H 05/08/18 05/08/18 05/08/18 22:03 22:20 23:08 WBC RBC Hgb Hct MCV MCH MCHC RDW Plt Count MPV Neut # (Auto) Lymph # (Auto) [place] # (Auto) Eos # (Auto) Baso # (Auto) Absolute Nucleated RBC Nucleated RBC % VBG pH VBG pCO2 VBG pO2 VBG HCO3 VBG Total CO2 VBG O2 Saturation VBG Base Excess Sodium 135 Potassium 3.6 Chloride 101 Carbon Dioxide 26 Anion Gap 8.0 BUN 9 Creatinine 0.4 L Estimated GFR (MDRD) 277 Glucose 246 H POC Whole Bld Glucose 262 H Calcium 8.7 Total Bilirubin AST ALT Alkaline Phosphatase Total Protein Albumin Globulin Albumin/Globulin Ratio Lipase Urine Color YELLOW Urine Clarity CLEAR Urine pH 7.0 Ur Specific [place] <=1.005 Urine Protein NEGATIVE Urine Glucose (UA) >=1000 H Urine Ketones 15 H Urine Occult Blood NEGATIVE Urine Nitrite NEGATIVE Urine Bilirubin NEGATIVE Urine Urobilinogen 0.2 (NORMAL) Ur Leukocyte Esterase SMALL H Urine RBC None Seen Urine WBC 4-5 Ur Squamous Epith Cells NONE SEEN Urine Bacteria None Seen Ur Microscopic Review INDICATED Urine Culture Comments INDICATED Serum Ketones PD MEDICAL DECISION MAKING - ED course ED course: The patient has chronic abdominal pain, today his symptoms are consistent with his chronic gastroparesis and abdominal pain. The patient is not in DKA today and was resuscitated using IV fluids, IV insulin and he was given his normal nighttime Lantus dosage. Since, the patient is not in DKA as symptoms are under better control he appears appropriate for discharge and ongoing outpatient management. The patient understands and agrees. I discussed warning signs and recommended returning to the emergency department immediately for worsening or any concerns. - Sepsis Event Vital Signs: Vital Signs - 24 hr 05/08/18 05/08/18 20:22 22:35 Temperature 36.7 C Heart Rate 87 93 Respiratory 18 18 Rate Blood Pressure 132/87 H 164/121 H O2 Saturation 97 100 Oxygen O2 Source Room air Departure - Departure Disposition: 01 Home, Self Care Clinical Impression: Hyperglycemia, Chronic abdominal pain Condition: Good Instructions: Abdominal Pain, Hyperglycemia Follow-Up: Ailin Kumar DNP [Primary Care Provider] - Within 3 Days Comments: Please return to the Emergency Department for worsening symptoms or any concerns
[2018-05-08 20:49] LABS: VBG PCO2 44.8 mmHg (41-51); VBG PH 7.388 (7.31-7.41); VBG PO2 42.2 mmHg (25-47); VBG TOTAL CO2 27.8 mmol/L (24-29)
[2018-05-08 20:50] LABS: BASOPHILS % (AUTO) 0.9 %; EOSINOPHILS % (AUTO) 0.4 %; LYMPHOCYTES # (AUTO) 0.9 10^3/uL (1.5-3.5); LYMPHOCYTES % (AUTO) 21.1 %; MEAN CORPUSCULAR HEMOGLOBIN 30.4 pg (27.0-31.0); MEAN CORPUSCULAR HGB CONC 33.7 g/dL (32.0-36.0); MEAN CORPUSCULAR VOLUME 90.3 fL (80.0-94.0); MEAN PLATELET VOLUME 7.8 fL (7.4-11.4); MONOCYTES # (AUTO) 0.2 10^3/uL (0.0-1.0); MONOCYTES % (AUTO) 5.2 %; NEUTROPHILS # (AUTO) 3.2 10^3/uL (1.5-6.6); NEUTROPHILS % (AUTO) 72.4 %; PLT - PLATELET COUNT 220 10^3/uL (130-450); RED BLOOD COUNT 4.29 10^6/uL (4.70-6.10); RED CELL DISTRIBUTION WIDTH 12.3 % (12.0-15.0); WHITE BLOOD COUNT 4.5 x10^3/uL (4.8-10.8)
[2018-05-08 20:58] LABS: KETONES, SERUM (ACETEST) SMALL (NEGATIVE)
[2018-05-08 21:17] LABS: ALBUMIN 3.6 g/dL (3.2-5.5); ALBUMIN/GLOBULIN RATIO 1.1 (1.0-2.2); ALKALINE PHOSPHATASE 74 IU/L (42-121); ALT ALANINE AMINOTRANSFERASE 15 IU/L (10-60); AST ASPARTATE AMINOTRANSFERASE 16 IU/L (10-42); BILIRUBIN,TOTAL 0.7 mg/dL (0.2-1.0); BUN - BLOOD UREA NITROGEN 13 mg/dL (6-20); CALCIUM 9.3 mg/dL (8.5-10.3); CARBON DIOXIDE - CO2 26 mmol/L (21-32); CHLORIDE 95 mmol/L (101-111); CREATININE 0.6 mg/dL (0.6-1.2); GFR - MDRD 174 (>89); GLUCOSE 565 mg/dL (70-100); LIPASE 27 U/L (22-51); SODIUM 129 mmol/L (135-145)
[2018-05-08] MEDS ORDERED: LACTATED RINGERS 2,000 ML IV ONE (21:19)
[2018-05-08] MEDS ORDERED: INSULIN REGULAR HUMAN 100 UNIT/1 ML 10 ML MDV IVP STA (21:21)
[2018-05-08 22:28] LABS: BILIRUBIN,URINE NEGATIVE (NEGATIVE); GLUCOSE, URINE (UA) >=1000 mg/dL (NEGATIVE); KETONES,URINE (UA) 15 mg/dL (NEGATIVE); LEUKOCYTE ESTERASE, URINE SMALL (NEGATIVE); NITRITE,URINE NEGATIVE (NEGATIVE); OCCULT BLOOD,URINE NEGATIVE (NEGATIVE); PROTEIN,URINE NEGATIVE (NEGATIVE); UROBILINOGEN,URINE 0.2 (NORMAL) E.U./dL (NORMAL)
[2018-05-08 22:29] LABS: CLARITY,URINE CLEAR (CLEAR)
[2018-05-08 22:35] VITALS: BP 164/121
[2018-05-08 22:36] LABS: BACTERIA,URINE None Seen /HPF (None Seen); RBC,URINE None Seen /HPF (0-5); SQUAMOUS EPITHELIAL CELL,UR NONE SEEN (<= Few)
[2018-05-08] MEDS ORDERED: HALOPERIDOL 5 MG/ML VIAL IVP ONE (22:36)
[2018-05-08 23:23] LABS: CALCIUM 8.7 mg/dL (8.5-10.3); CREATININE 0.4 mg/dL (0.6-1.2)
[2018-05-08] MEDS ORDERED: MAG HYDROX/AL HYDROX/SIMETH 30 ML UDC PO STA (23:27)
[2018-05-08] MEDS ORDERED: LIDOCAINE VISCOUS 2% 15 ML UDC MM STA (23:27)
[2018-05-08] MEDS ORDERED: INSULIN GLARGINE 300 UNIT/3 ML PEN SUBQ SCH (23:45)
== END 2018-05-09 00:02 | disposition home or self-care (01) ==
LOC: ED 20:15
DX: E10.65 Type 1 diabetes mellitus with hyperglycemia (principal); E10.42 Type 1 diabetes mellitus with diabetic polyneuropathy; R10.9 Unspecified abdominal pain; G89.29 Other chronic pain
CPT/HCPCS: 36415; 80048; 80053; 81001; 82009; 82803; 83690; 85025; 87086; 96365; 96375; 99283; 99284; A9270; J1200; J1815; J7040; J7120; 81003

== ENCOUNTER 2018-05-10 21:46 | Inpatient (IN) | payer MEDICAID ==
[2018-05-10] MEDS ORDERED: SODIUM CHLORIDE 0.9% 1,000 ML IV ONE (21:51)
--- NOTE | 2018-05-10 21:52 | ED Physician Documentation ---
History of Present Illness - Stated complaint Stated Complaint: ABD PX - History obtained from History obtained from: Patient - Additonal information Additional information: 17-year-old male with a history of type 1 diabetes and gastroparesis and noncompliance presents the emergency department with his chronic diffuse abdominal pain associated with nausea and vomiting. The patient reports that he did not take any of his normal short acting insulin today. The patient denies any focal area of abdominal pain. Symptoms are described as severe. No blood in the vomit or stools. No other associated symptoms. No relieving factors. Review of Systems Constitutional: reports: Fatigue Eyes: denies: Discharge Ears: denies: Drainage/discharge Nose: denies: Congestion Throat: denies: Sore throat Cardiac: denies: Chest pain / pressure GI: reports: Abdominal Pain, Nausea, Vomiting : denies: Dysuria Skin: denies: Rash Musculoskeletal: denies: Back pain Neurologic: denies: Generalized weakness Immunocompromised: denies: Chemotherapy PD PAST MEDICAL HISTORY - Past Medical History Cardiovascular: None Respiratory: None Neuro: Peripheral neuropathy Endocrine/Autoimmune: Type 1 diabetes GI: None : None HEENT: None Psych: None Musculoskeletal: None Derm: None - Past Surgical History Past Surgical History: No - Present Medications Home Medications: Ambulatory Orders Medication Instructions Recorded Confirmed Insulin Aspart [Novolog] 0 - 12 unit SUBQ TIDWM 04/15/15 04/28/18 Fluoxetine HCl 20 mg PO DAILY 04/29/18 04/29/18 Insulin Glargine [Lantus Solostar] 20 units SUBQ BID 04/29/18 04/29/18 Metoclopramide [Reglan] 10 mg PO ACHS #60 tablet 04/30/18 - Allergies Allergies/Adverse Reactions: Allergies Allergy/AdvReac Type Severity Reaction Status Date / Time No Known Drug Allergies Allergy Verified 05/08/18 20:27 - Social History Does the pt smoke?: No Smoking Status: Never smoker Does the pt drink ETOH?: Yes Does the pt have substance abuse?: No - Immunizations Immunizations are current?: Yes - POLST Patient has POLST: No POLST Status: Full Code PD ED PE NORMAL - General General: Alert and oriented X 3, Other (17-year-old male who appears to be in a poor state of health and appears acutely uncomfortable) - HEENT HEENT: Atraumatic, PERRL, EOMI, Ears normal - Neck Neck: Supple, no meningeal sign - Cardiac Cardiac: RRR, Other (Tachycardia) - Respiratory Respiratory: No respiratory distress - Abdomen Abdomen: Soft, Non distended. No: Non tender (Diffuse abdominal tenderness with no rebound or peritoneal signs) - Derm Derm: Normal color - Extremities Extremities: No deformity, No edema - Neuro 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, Normal speech - Psych Psych: Normal mood Results - Vitals Vitals: Vital Signs - 24 hr 05/10/18 05/10/18 05/10/18 21:52 22:20 22:40 Temperature 37 C Heart Rate 106 H 110 H 100 Respiratory 18 26 H 14 Rate Blood Pressure 154/59 H 142/113 H O2 Saturation 100 100 100 Oxygen O2 Source Room air Oxygen Flow Rate 2 - Labs Labs: Laboratory Tests 05/10/18 05/10/18 05/10/18 21:58 22:06 22:06 WBC 5.2 RBC 4.83 Hgb 14.8 Hct 43.0 MCV 89.1 MCH 30.6 MCHC 34.3 RDW 12.6 Plt Count 281 MPV 7.8 Neut # (Auto) 3.6 Lymph # (Auto) 1.4 L [place] # (Auto) 0.2 Eos # (Auto) 0.0 Baso # (Auto) 0.0 Absolute Nucleated RBC 0.00 Nucleated RBC % 0.1 VBG pH VBG pCO2 VBG pO2 VBG HCO3 VBG Total CO2 VBG O2 Saturation VBG Base Excess Sodium 131 L Potassium 4.0 Chloride 90 L Carbon Dioxide 23 Anion Gap 18.0 H BUN 14 Creatinine 0.6 Estimated GFR (MDRD) 174 Glucose 578 H* POC Whole Bld Glucose 557 H* Calcium 10.1 Magnesium 2.1 Total Bilirubin 1.1 H AST 47 H ALT 24 Alkaline Phosphatase 88 Total Protein 8.4 H Albumin 4.6 Globulin 3.8 Albumin/Globulin Ratio 1.2 Lipase 35 Serum Ketones SMALL H 05/10/18 22:06 WBC RBC Hgb Hct MCV MCH MCHC RDW Plt Count MPV Neut # (Auto) Lymph # (Auto) [place] # (Auto) Eos # (Auto) Baso # (Auto) Absolute Nucleated RBC Nucleated RBC % VBG pH 7.496 H VBG pCO2 25.2 L VBG pO2 30.9 VBG HCO3 19.0 L VBG Total CO2 19.8 L VBG O2 Saturation 68.8 VBG Base Excess -2.3 L Sodium Potassium Chloride Carbon Dioxide Anion Gap BUN Creatinine Estimated GFR (MDRD) Glucose POC Whole Bld Glucose Calcium Magnesium Total Bilirubin AST ALT Alkaline Phosphatase Total Protein Albumin Globulin Albumin/Globulin Ratio Lipase Serum Ketones PD MEDICAL DECISION MAKING - ED course ED course: The patient is in DKA and will require admission to the hospital. The patient' s symptoms improved with antiemetic control. The patient will be resuscitated with IV fluids and insulin. The case was discussed with the hospitalist Dr. Donaldson who accepts the patient onto her service. The patient understands and agrees to the plan - Sepsis Event Vital Signs: Vital Signs - 24 hr 05/10/18 05/10/18 05/10/18 21:52 22:20 22:40 Temperature 37 C Heart Rate 106 H 110 H 100 Respiratory 18 26 H 14 Rate Blood Pressure 154/59 H 142/113 H O2 Saturation 100 100 100 Oxygen O2 Source Room air Oxygen Flow Rate 2 Departure - Departure Disposition: 66 [facility] DC/Xfer Clinical Impression: DKA (diabetic ketoacidoses) Qualifiers: Diabetes mellitus type: type 1 Diabetes mellitus complication detail: without coma Qualified Code(s): E10.10 - Type 1 diabetes mellitus with ketoacidosis without coma Condition: Fair
[2018-05-10] MEDS ORDERED: HALOPERIDOL 5 MG/ML VIAL IVP ONE (21:53)
[2018-05-10] MEDS ORDERED: PROMETHAZINE INJ 25 MG in SODIUM CHLORIDE 0.9% 50 ML IV STA (21:53)
[2018-05-10] MEDS ORDERED: diphenhydrAMINE INJ 50 MG/ML VIAL IVP STA (21:53)
[2018-05-10 22:11] LABS: VBG BASE EXCESS -2.3 mmol/L (-2 - +2); VBG PCO2 25.2 mmHg (41-51); VBG PH 7.496 (7.31-7.41); VBG PO2 30.9 mmHg (25-47); VBG TOTAL CO2 19.8 mmol/L (24-29)
[2018-05-10 22:17] LABS: KETONES, SERUM (ACETEST) SMALL (NEGATIVE)
[2018-05-10] MEDS ORDERED: oxyCODONE ER 10 MG TABLET PO STA (22:23)
[2018-05-10 22:24] LABS: BASOPHILS % (AUTO) 0.8 %; EOSINOPHILS % (AUTO) 0.3 %; HGB - HEMOGLOBIN 14.8 g/dL (14.0-18.0); LYMPHOCYTES # (AUTO) 1.4 10^3/uL (1.5-3.5); LYMPHOCYTES % (AUTO) 26.6 %; MEAN CORPUSCULAR HEMOGLOBIN 30.6 pg (27.0-31.0); MEAN CORPUSCULAR HGB CONC 34.3 g/dL (32.0-36.0); MEAN CORPUSCULAR VOLUME 89.1 fL (80.0-94.0); MEAN PLATELET VOLUME 7.8 fL (7.4-11.4); MONOCYTES # (AUTO) 0.2 10^3/uL (0.0-1.0); MONOCYTES % (AUTO) 3.7 %; NEUTROPHILS # (AUTO) 3.6 10^3/uL (1.5-6.6); NEUTROPHILS % (AUTO) 68.6 %; PLT - PLATELET COUNT 281 10^3/uL (130-450); RED BLOOD COUNT 4.83 10^6/uL (4.70-6.10); RED CELL DISTRIBUTION WIDTH 12.6 % (12.0-15.0); WHITE BLOOD COUNT 5.2 x10^3/uL (4.8-10.8)
[2018-05-10] MEDS ORDERED: LACTATED RINGERS 2,000 ML IV ONE (22:24)
[2018-05-10 22:27] LABS: ALBUMIN 4.6 g/dL (3.2-5.5); ALBUMIN/GLOBULIN RATIO 1.2 (1.0-2.2); ALKALINE PHOSPHATASE 88 IU/L (42-121); ALT ALANINE AMINOTRANSFERASE 24 IU/L (10-60); AST ASPARTATE AMINOTRANSFERASE 47 IU/L (10-42); BILIRUBIN,TOTAL 1.1 mg/dL (0.2-1.0); BUN - BLOOD UREA NITROGEN 14 mg/dL (6-20); CALCIUM 10.1 mg/dL (8.5-10.3); CARBON DIOXIDE - CO2 23 mmol/L (21-32); CHLORIDE 90 mmol/L (101-111); CREATININE 0.6 mg/dL (0.6-1.2); GFR - MDRD 174 (>89); LIPASE 35 U/L (22-51); MAGNESIUM 2.1 mg/dL (1.7-2.8); SODIUM 131 mmol/L (135-145); TOTAL PROTEIN 8.4 g/dL (6.7-8.2)
[2018-05-10 22:28] LABS: GLUCOSE 578 mg/dL (70-100)
[2018-05-10] MEDS ORDERED: INSULIN REGULAR HUMAN 100 UNIT in SODIUM CHLORIDE 0.9% 100ML 99 ML IV STA (22:31)
[2018-05-10] MEDS ORDERED: SODIUM CHLORIDE FLUSH 0.9% 10 ML SYRINGE IVP PRN (22:48)
--- NOTE | 2018-05-10 23:06 | HISTORY & PHYSICAL EXAMINATION ---
Chief Complaint - Chief Complaint Chief Complaint: Hyperosmolar, hyperglycemic state History of Present Illness - Admitted From Admitted From:: Home - History Obtained From History obtained from: ED physician, patient Exam Limitations: pt is sedated - History of Present Illness HPI Comment/Other: Mr. Thomas Kearney is an unfortunate 17-year-old male with a history of type 1 diabetes with multiple prior admissions for diabetic ketoacidosis and a history of diabetic gastroparesis with frequent abdominal pain, nausea and vomiting. He also has a history of neurogenic bladder felt to be from peripheral neuropathy of the diabetes which was diagnosed earlier this year. He was admitted to the hospital on April 28, 2018 for DKA and has been back to the emergency room in a hyperglycemic state since that time as well, most recently 2 days ago. On presentation to the emergency department the patient was found to be slightly tachycardic at 106 but afebrile, and was found to be dehydrated and estimated to be 3 L low by ultrasound. His oxygen saturation rate was 100% on room air with a respiratory rate of 18. He was also mildly hyponatremic with small amount of ketones found but he was not acidotic with a pH of 7.496. He did have a mildly elevated anion gap at 18 and his glucose level was 578. He was started on an insulin drip in the emergency department along with replacement IV fluids. Although he is not in diabetic ketoacidosis we will treat him essentially the same with fluid resuscitation and correction of electrolytes. We will continue him on the insulin drip until his blood sugars are in the 300 range, when we will switch him to his home insulin regimen. We will restart him on metoclopramide which he takes for his diabetic gastroparesis and his fluoxetine which he takes for anxiety and depression. History - Past Medical History Cardiovascular: reports: None Respiratory: reports: None Neuro: reports: Peripheral neuropathy Endocrine/Autoimmune: reports: Type 1 diabetes GI: reports: Other (Diabetic gastroparesis) : reports: None HEENT: reports: None Psych: reports: Depression, Anxiety Musculoskeletal: reports: None Derm: reports: None MRSA Hx?: No - Family & Social History Family History: Mother: Alive and Well, Diabetes, Type 2 (grandmother), Other family: Diabetes, Type 2 Family History Comment/Other: Neg for gallbladder disease and GI tumors Living arrangement: At home Living Situation: With family Social History Notes: The patient is originally from [place] but has been living on [facility] for the last 3 years with his aunt. The patient also spent some time in [place]. Patient has had several hospitalizations for diabetic ketoacidosis within the last 2-3 years. Patient was diagnosed with diabetes at the age of 3. The patient is single and does not have any children. He does not smoke tobacco and rarely drinks alcohol. The patient does state he occasionally smokes marijuana but denies any other illicit drug use. - Substance History Use: Uses substance without health or social issues: Alcohol, Cannabis (pt may have hyperemesis related to cannabis, continues to smoke marijuana) - POLST Patient has POLST: No POLST Status: Full Code Meds/Allgy - Home Medications Home Medications: Ambulatory Orders Medication Instructions Recorded Confirmed Insulin Aspart [Novolog] 0 - 12 unit SUBQ TIDWM 04/15/15 04/28/18 Fluoxetine HCl 20 mg PO DAILY 04/29/18 04/29/18 Insulin Glargine [Lantus Solostar] 20 units SUBQ BID 04/29/18 04/29/18 Metoclopramide [Reglan] 10 mg PO ACHS #60 tablet 04/30/18 - Allergies Allergies/Adverse Reactions: Allergies Allergy/AdvReac Type Severity Reaction Status Date / Time No Known Drug Allergies Allergy Verified 05/08/18 20:27 Review of Systems - Constitutional Constitutional: reports: Fatigue, Malaise, Weakness, Poor appetite. denies: Fever, Chills - Eyes Eyes: denies: Pain, Irritation, Amaurosis, Blurred vision, Dipolpia - Ears, Nose & Throat Ears, Nose & Throat: denies: Ear pain, Hearing loss, Hearing aids, Tinnitus, Vertigo, Nasal pain, Nasal discharge, Nosebleeds - Cardiovascular Cariovascular: denies: Irregular heart rate, Palpitations, Chest pain, Edema, Syncope - Respiratory Respiratory: denies: Cough, Sputum production, Wheezing, Snoring, Hemoptysis, Orthopnea, SOB at rest - Gastrointestinal Gastrointestinal: reports: Abdominal pain, Nausea, Vomiting. denies: Abdominal distention, Constipation, Diarrhea, Change in bowel habits, Rectal bleeding, Black stools, Bile emesis, [place] blood emesis - Genitourinary Genitourinary: denies: Dysuria, Frequency, Urgency, Hematuria - Musculoskeletal Musculoskeletal: denies: Muscle pain, Back pain, Muscle aches, Stiffness, Muscle weakness - Integumentary Integumentary: denies: Rash, Pruritis, Lesions, Dryness - Neurological Neurological: denies: General weakness, Focal weakness, Headache, Dizziness - Psychiatric Psychiatric: denies: Depression, Anxiety, Suicidal, Hallucinations - Endocrine Endocrine: denies: Polyuria, Polydypsia, Polyphagia - Hematologic/Lymphatic Hematologic/Lymphatic: denies: Anemia, Bruising, Petechiae, Blood clots, Lymphadenopathy - All Other Systems All Other Systems: reports: Reviewed and negative Exam - Vital Signs Reviewed Vital Signs: Yes Vital Signs: Vital Signs x48h Temp Pulse Resp BP Pulse Ox 05/10/18 22:40 100 14 100 05/10/18 22:20 110 H 26 H 142/113 H 100 05/10/18 21:52 37 C 106 H 18 154/59 H 100 - Physical Exam General Appearance: positive: Mild distress, Lethargic Eyes Bilateral: positive: Normal inspection, PERRL, EOMI, No lid inflammation, Conjunctivae nml, No scleral icterus ENT: positive: ENT inspection nml, Pharynx nml, Dry mucous membranes. negative : Oral lesions Neck: positive: Nml inspection, Thyroid nml, No JVD, Trachea midline. negative : Thyromegaly Respiratory: positive: Chest non-tender, No respiratory distress, Breath sounds nml. negative: Wheezes, Rales, Rhonchi Cardiovascular: positive: Regular rate & rhythm, No murmur, No gallop Peripheral Pulses: positive: 2+ Abdomen: positive: Non-tender, No organomegaly, Nml bowel sounds, No distention. negative: Guarding, Rebound Back: positive: Nml inspection. negative: CVA tenderness (R), CVA tenderness (L ) Skin: positive: Color nml, No rash, Warm, Dry. negative: Cyanosis Extremities: positive: Non-tender, Full ROM, Nml appearance, No pedal edema Neurologic/Psychiatric: positive: Oriented x3, CN's nml (2-12), Motor nml, Sensation nml, Depressed mood/affect Conclusion/Plan - Problem List (1) Hyperosmolar syndrome Conclusion/Plan: The patient has hyperosmolar hyperglycemic syndrome, and is not acidotic. We will correct his hyperglycemia and electrolyte abnormalities and address his dehydration. We will continue him on the insulin drip which was started in the emergency department and when his blood sugars go below 300 we will convert him over to his home diabetic medication regimen. (2) Depression Conclusion/Plan: Patient has a history of depression and will often spend all day in bed. He has been on Prozac for a little over 3 weeks and we will continue this while he is inpatient. (3) Diabetic gastroparesis Conclusion/Plan: The patient has a long history of diabetic gastroparesis and has responded well to Reglan. We will restart this while he is inpatient. - Lab Results Lab results reviewed: Yes Fish Bones: 05/10/18 22:06 05/10/18 22:06 Core Measures - Anticipated LOS I expect patient to be DC'd or transferred within 96 hours.: Yes - DVT/VTE - Prophylaxis VTE/DVT Device ordered at admit?: Yes
[2018-05-10 23:08] LABS: BASOPHILS % (AUTO) 0.9 %; EOSINOPHILS % (AUTO) 0.2 %; LYMPHOCYTES # (AUTO) 0.6 10^3/uL (1.5-3.5); LYMPHOCYTES % (AUTO) 17.1 %; MEAN CORPUSCULAR HEMOGLOBIN 30.6 pg (27.0-31.0); MEAN CORPUSCULAR HGB CONC 34.4 g/dL (32.0-36.0); MEAN CORPUSCULAR VOLUME 88.9 fL (80.0-94.0); MEAN PLATELET VOLUME 7.6 fL (7.4-11.4); MONOCYTES # (AUTO) 0.1 10^3/uL (0.0-1.0); MONOCYTES % (AUTO) 3.6 %; NEUTROPHILS # (AUTO) 2.7 10^3/uL (1.5-6.6); NEUTROPHILS % (AUTO) 78.2 %; PLT - PLATELET COUNT 214 10^3/uL (130-450); RED BLOOD COUNT 4.25 10^6/uL (4.70-6.10); RED CELL DISTRIBUTION WIDTH 12.3 % (12.0-15.0); WHITE BLOOD COUNT 3.5 x10^3/uL (4.8-10.8)
[2018-05-10 23:19] LABS: CALCIUM 8.7 mg/dL (8.5-10.3); CREATININE 0.6 mg/dL (0.6-1.2); MAGNESIUM 1.7 mg/dL (1.7-2.8)
[2018-05-10 23:30] LABS: VBG BASE EXCESS -5.3 mmol/L (-2 - +2); VBG PCO2 27.9 mmHg (41-51); VBG PH 7.421 (7.31-7.41); VBG PO2 37.1 mmHg (25-47); VBG TOTAL CO2 18.6 mmol/L (24-29)
[2018-05-11] MEDS: D5NS W/20 MEQ KCL 1,000 ML IV SCH ×2 (00:06→09:05)
[2018-05-11 00:20] LABS: BILIRUBIN,URINE NEGATIVE (NEGATIVE); GLUCOSE, URINE (UA) >=1000 mg/dL (NEGATIVE); KETONES,URINE (UA) 40 mg/dL (NEGATIVE); LEUKOCYTE ESTERASE, URINE TRACE (NEGATIVE); NITRITE,URINE NEGATIVE (NEGATIVE); OCCULT BLOOD,URINE NEGATIVE (NEGATIVE); PH,URINE 7.5 PH (5.0-7.5); PROTEIN,URINE NEGATIVE (NEGATIVE); UROBILINOGEN,URINE 0.2 (NORMAL) E.U./dL (NORMAL)
[2018-05-11 00:22] LABS: CLARITY,URINE CLEAR (CLEAR)
[2018-05-11 00:29] LABS: BACTERIA,URINE Few /HPF (None Seen); RBC,URINE 0-5 /HPF (0-5); SQUAMOUS EPITHELIAL CELL,UR FEW Squamous (<= Few); YEAST,URINE PRESENT
[2018-05-11] MEDS: ONDANSETRON 4 MG/2 ML VIAL IVP PRN ×2 (00:58→07:48)
[2018-05-11 01:28] LABS: BUN - BLOOD UREA NITROGEN 9 mg/dL (6-20); CALCIUM 8.7 mg/dL (8.5-10.3); CARBON DIOXIDE - CO2 24 mmol/L (21-32); CHLORIDE 101 mmol/L (101-111); CREATININE 0.5 mg/dL (0.6-1.2); GFR - MDRD 214 (>89); GLUCOSE 266 mg/dL (70-100); MAGNESIUM 1.8 mg/dL (1.7-2.8); SODIUM 136 mmol/L (135-145)
[2018-05-11 01:33] LABS: KETONES, SERUM (ACETEST) SMALL (NEGATIVE)
[2018-05-11] MEDS: SODIUM CHLORIDE FLUSH 0.9% 10 ML SYRINGE IVP SCH ×3 (03:08→17:13)
[2018-05-11 03:11] LABS: HB2 TOTAL 12.8 g/dL; HEMOGLOBIN A1C 1.63 g/dL; HEMOGLOBIN A1C % 13.8 % (4.6-6.2)
[2018-05-11 03:26] LABS: BUN - BLOOD UREA NITROGEN 9 mg/dL (6-20); CALCIUM 8.7 mg/dL (8.5-10.3); CARBON DIOXIDE - CO2 22 mmol/L (21-32); CHLORIDE 101 mmol/L (101-111); CREATININE 0.5 mg/dL (0.6-1.2); GFR - MDRD 214 (>89); GLUCOSE 273 mg/dL (70-100); MAGNESIUM 1.8 mg/dL (1.7-2.8); SODIUM 136 mmol/L (135-145)
[2018-05-11 03:29] LABS: KETONES, SERUM (ACETEST) SMALL (NEGATIVE)
[2018-05-11] MEDS ORDERED: MORPHINE 2 MG/ML SYRINGE IVP PRN (04:38)
[2018-05-11 05:45] LABS: KETONES, SERUM (ACETEST) SMALL (NEGATIVE)
[2018-05-11 05:52] LABS: PHOSPHORUS 2.6 mg/dL (2.5-4.6)
[2018-05-11] MEDS: METOCLOPRAMIDE 10 MG TABLET PO SCH ×4 (06:37→21:32)
[2018-05-11] MEDS: MORPHINE 2 MG/ML SYRINGE IVP PRN ×5 (07:48→21:23)
[2018-05-11] MEDS: INSULIN ASPART 300 UNIT/3 ML PEN SUBQ SCH ×4 (08:28→21:30)
--- NOTE | 2018-05-11 08:40 | PROVIDER PROGRESS NOTE ---
Assessment/Plan - Problem List (1) Oxygen desaturation Assessment/Plan: Oxygen desaturations with pleuritic CP last night. CXR was not done at admission. Will obtain a CXR. Will obtain EKG and troponins are pending, to evaluate for a cardiac cause of desats and CP. (2) Hyperosmolar syndrome Assessment/Plan: Continue iv fluids, ss Insulin, freq monitoring of labs and fingerstick glu. (3) Diabetic gastroparesis Assessment/Plan: Despite the Sep 2017 gastric emptying study that was normal, this summer's 2-3 admissions, he has gastroparesis by clinical eaval and does benefit from Reglan dosing ac and hs. Continue Reglan. (4) Abdominal pain Qualifiers: Abdominal location: generalized Qualified Code(s): R10.84 - Generalized abdominal pain Assessment/Plan: This is a recurrent problem when he is vomiting and frpm urinary distension. Continue wit prn pain meds and prn bladder cath. (5) Neurogenic bladder Assessment/Plan: Pt has single urine outputs of 1100 cc, 1400cc. No prn cath needed thus far, as at last admission. (6) Depression Assessment/Plan: Continue anti-depressant, which he notices has helped his mood since started 4- 6 weeks ago. - Current Meds Current Meds: Current Medications Generic Name Dose Route Start Last Admin Trade Name Freq PRN Reason Stop Dose Admin Potassium Chloride/Dextrose/Sod Cl 1,000 mls @ 100 mls/hr 05/10/18 23:00 08:00 IV 100 mls/hr .Q10H SHEILA Infusion Insulin Aspart 2 - 10 unit 05/11/18 08:00 05/11/18 08:28 Novolog SUBQ 8 unit 0800,1200,1700,2100 SHEILA Administration Protocol Metoclopramide HCl 10 mg 05/11/18 07:00 05/11/18 06:37 Reglan PO 10 mg ACHS SHEILA Administration Morphine Sulfate 2 mg 05/11/18 05:58 05/11/18 07:48 Morphine IVP 2 mg Q2H PRN Administration PAIN Ondansetron HCl 4 mg 05/10/18 22:48 05/11/18 07:48 Zofran Inj IVP 4 mg Q6HR PRN Administration Nausea / Vomiting Sodium Chloride 10 ml 05/11/18 01:00 05/11/18 03:08 Normal Saline Flush 0.9% IVP Not Given 0100,0900,1700 SHEILA - Lab Result Fish Bone Diagrams: 05/10/18 23:03 05/11/18 03:05 - Additional Planning My Orders: My Active Orders 05/11/18 09:00 Potassium Chloride/Water 10 mEq/100 mL q1h Potassium Chlor 10 Meq/100 ml [ Potassium Chloride] 10 meq in 100 ml IV Q1H 05/11/18 12:00 VENOUS BLOOD GAS [BG] Timed 05/12/18 05:00 BMP - BASIC METABOLIC PANEL [CHEM] DAILYLAB 05/13/18 05:00 BMP - BASIC METABOLIC PANEL [CHEM] DAILYLAB 05/14/18 05:00 BMP - BASIC METABOLIC PANEL [CHEM] DAILYLAB 05/15/18 05:00 BMP - BASIC METABOLIC PANEL [CHEM] DAILYLAB Subjective - Subjective Nursing Reports: Shortness of Breath, Other (Pt had pleuritic CP last night, per RN Note, and was desaturating.) Objective Vital Signs: Vital Signs - 24 hr 05/10/18 05/10/18 05/11/18 23:11 23:14 00:00 Temperature 37.0 C 37.1 C Heart Rate 99 97 Heart Rate [ 93 Monitoring electrodes] Respiratory 14 15 12 Rate Blood Pressure 152/107 H Blood Pressure 152/106 H [Right Brachial artery] O2 Saturation 100 100 93 05/11/18 04:31 Temperature 37.2 C Heart Rate Heart Rate [ 100 Monitoring electrodes] Respiratory 27 H Rate Blood Pressure Blood Pressure 147/95 H [Right Brachial artery] O2 Saturation 100 Oxygen O2 Source Room air I&O (Last 24 Hrs): Intake and Output Totals x24h 05/09/18 05/10/18 05/11/18 23:59 23:59 23:59 Intake Total 1051 2795.312 Output Total 2575 Balance 1051 220.312 General: Alert HEENT: Mucous membr. moist/pink Neck: Supple, No JVD Neuro: Non Focal Cardiovascular: Regular rate, No murmurs Respiratory: No respiratory distress, Breath sounds nml Abdomen: Soft, No tenderness Extremities: No edema - Results Results: Laboratory Results WBC 3.5 x10^3/uL (4.8-10.8) L 05/10/18 23:03 RBC 4.25 10^6/uL (4.70-6.10) L 05/10/18 23: Hgb 13.0 g/dL (14.0-18.0) L 05/10/18 23: Hct 37.8 % (42.0-52.0) L 05/10/18: MCV 88.9 fL (80.0-94.0) 05/10/18 23: MCH 30.6 pg (27.0-31.0) 05/10/18: MCHC 34.4 g/dL (32.0-36.0) 05/10/18 23: RDW 12.3 % (12.0-15.0) 05/10/18 23: Plt Count 214 10^3/uL (130-450) 05/10/18: MPV 7.6 fL (7.4-11.4) 05/10/18:03 Neut # (Auto) 2.7 10^3/uL (1.5-6.6) 05/10/18: Lymph # (Auto) 0.6 10^3/uL (1.5-3.5) L 05/10/18 23:03 [place] # (Auto) 0.1 10^3/uL (0.0-1.0) 05/10/18 23:03 Eos # (Auto) 0.0 10^3/uL (0.0-0.7) 05/10/18: Baso # (Auto) 0.0 10^3/uL (0.0-0.1) 05/10/18: Absolute Nucleated RBC 0.00 x10^3/uL 05/10/18: Nucleated RBC % 0.0 /100WBC 05/10/18: VBG pH 7.421 (7.31-7.41) H 05/10/18: VBG pCO2 27.9 mmHg (41-51) L 05/10/18: VBG pO2 37.1 mmHg (25-47) 05/10/18 23: VBG HCO3 17.7 mmol/L (23-28) L 05/10/18: VBG Total CO2 18.6 mmol/L (24-29) L 05/10/18:03 VBG O2 Saturation 71.7 % (60-80) 05/10/18 23:03 VBG Base Excess -5.3 mmol/L (-2 - +2) L 05/10/18 23:03 Sodium 136 mmol/L (135-145) 05/11/18 03:05 Potassium 3.2 mmol/L (3.5-5.0) L 05/11/18 03:05 Chloride 101 mmol/L (101-111) 05/11/18 03:05 Carbon Dioxide 22 mmol/L (21-32) 05/11/18 03:05 Anion Gap 13.0 (6-13) 05/11/18 03:05 BUN 9 mg/dL (6-20) 05/11/18 03:05 Creatinine 0.5 mg/dL (0.6-1.2) L 05/11/18 03:05 Estimated GFR (MDRD) 214 (>89) 05/11/18 03:05 Glucose 273 mg/dL (70-100) H 05/11/18 03:05 POC Whole Bld Glucose 308 mg/dL (70 - 100) H 05/11/18 08:18 Glycated Hemoglobin 13.8 % (4.6-6.2) H 05/10/18 23:03 Estim Average Glucose 349 (70-100) H 05/10/18 23:03 Calcium 8.7 mg/dL (8.5-10.3) 05/11/18 03:05 Phosphorus 2.6 mg/dL (2.5-4.6) 05/11/18 04:55 Magnesium 1.8 mg/dL (1.7-2.8) 05/11/18 03:05 Total Bilirubin 1.1 mg/dL (0.2-1.0) H 05/10/18 22:06 AST 47 IU/L (10-42) H 05/10/18 22:06 ALT 24 IU/L (10-60) 05/10/18 22:06 Alkaline Phosphatase 88 IU/L (42-121) 05/10/18 22:06 Troponin I < 0.04 ng/mL (<0.49) 05/10/18 23:03 Total Protein 8.4 g/dL (6.7-8.2) H 05/10/18 22:06 Albumin 4.6 g/dL (3.2-5.5) 05/10/18 22:06 Globulin 3.8 g/dL (2.1-4.2) 05/10/18 22:06 Albumin/Globulin Ratio 1.2 (1.0-2.2) 05/10/18 22:06 Lipase 35 U/L (22-51) 05/10/18 22:06 Urine Color LIGHT YELLOW 05/11/18 00:00 Urine Clarity CLEAR (CLEAR) 05/11/18 00:00 Urine pH 7.5 PH (5.0-7.5) 05/11/18 00:00 Ur Specific [place] 1.010 (1.002-1.030) 05/11/18 00:00 Urine Protein NEGATIVE mg/dL (NEGATIVE) 05/11/18 00:00 Urine Glucose (UA) >=1000 mg/dL (NEGATIVE) H 05/11/18 00:00 Urine Ketones 40 mg/dL (NEGATIVE) H 05/11/18 00:00 Urine Occult Blood NEGATIVE (NEGATIVE) 05/11/18 00:00 Urine Nitrite NEGATIVE (NEGATIVE) 05/11/18 00:00 Urine Bilirubin NEGATIVE (NEGATIVE) 05/11/18 00:00 Urine Urobilinogen 0.2 (NORMAL) E.U./dL (NORMAL) 05/11/18 00:00 Ur Leukocyte Esterase TRACE (NEGATIVE) H 05/11/18 00:00 Urine RBC 0-5 /HPF (0-5) 05/11/18 00:00 Urine WBC 0-3 /HPF (0-3) 05/11/18 00:00 Ur Squamous Epith Cells FEW Squamous (<= Few) 05/11/18 00:00 Urine Bacteria Few /HPF (None Seen) 05/11/18 00:00 Urine Yeast PRESENT 05/11/18 00:00 Ur Microscopic Review INDICATED 05/11/18 00:00 Urine Culture Comments INDICATED 05/11/18 00:00 Serum Ketones SMALL (NEGATIVE) H 05/11/18 06:50 - Procedures Procedures: Procedures EXCISION OF DUODENUM, ENDO, DIAGN (03/10/18) EXCISION OF LOWER ESOPHAGUS, ENDO, DIAGN (03/10/18) EXCISION OF STOMACH, ENDO, DIAGN (03/10/18)
[2018-05-11] MEDS: FLUoxetine 10 MG CAPSULE PO SCH (09:03)
[2018-05-11] MEDS: INSULIN GLARGINE 300 UNIT/3 ML PEN SUBQ SCH ×2 (09:04→21:29)
[2018-05-11] MEDS: POTASSIUM CHLOR 10 MEQ/100 ML 10 MEQ/100 ML BAG IV SCH ×3 (09:07→12:45)
[2018-05-11] MEDS: POLYETHYLENE GLYCOL 3350 17 GM PACKET PO SCH (09:08)
[2018-05-11] MEDS ORDERED: SODIUM CHLORIDE 0.9% 1,000 ML IV ONE (09:21)
--- NOTE | 2018-05-11 10:59 | XRAY Report ---
Procedure Date: 05/11/2018 Accession Number: [id number] / [id number] Procedure: XR - Chest 1 View X-Ray CPT Code: 84866 FULL RESULT: EXAM: CHEST RADIOGRAPHY EXAM DATE: 05/11/2018 10:47 AM. CLINICAL HISTORY: Splinting, desaturations and pleuritic chest pain. COMPARISON: ABDOMEN ACUTE 04/28/2018. TECHNIQUE: 1 view. FINDINGS: Lungs/Pleura: No focal opacities evident. No pleural effusion. No pneumothorax. Mediastinum: Within exam limitations, the cardiomediastinal contour is normal. Other: None. IMPRESSION: Normal single view chest. RADIA
[2018-05-11 12:57] LABS: VBG BASE EXCESS -4.1 mmol/L (-2 - +2); VBG PCO2 34.5 mmHg (41-51); VBG PH 7.385 (7.31-7.41); VBG PO2 146.1 mmHg (25-47); VBG TOTAL CO2 21.2 mmol/L (24-29)
[2018-05-12] MEDS: MORPHINE 2 MG/ML SYRINGE IVP PRN ×2 (00:51→04:31)
[2018-05-12] MEDS: D5NS W/20 MEQ KCL 1,000 ML IV SCH (01:16)
[2018-05-12] MEDS: SODIUM CHLORIDE FLUSH 0.9% 10 ML SYRINGE IVP SCH ×2 (04:31→08:51)
[2018-05-12 05:09] LABS: CALCIUM 8.7 mg/dL (8.5-10.3); CREATININE 0.4 mg/dL (0.6-1.2)
[2018-05-12] MEDS: METOCLOPRAMIDE 10 MG TABLET PO SCH ×2 (07:38→11:00)
[2018-05-12] MEDS: INSULIN ASPART 300 UNIT/3 ML PEN SUBQ SCH ×2 (07:57→11:58)
[2018-05-12] MEDS: INSULIN GLARGINE 300 UNIT/3 ML PEN SUBQ SCH (08:50)
[2018-05-12] MEDS: POLYETHYLENE GLYCOL 3350 17 GM PACKET PO SCH (08:51)
[2018-05-12] MEDS: FLUoxetine 10 MG CAPSULE PO SCH (08:51)
--- NOTE | 2018-05-12 11:48 | Discharge Plan ---
Discharge Plan Disposition: 01 Home, Self Care Condition: Stable Diet: Diabetic Activity Restrictions: Activity as Tolerated Shower Restrictions: No Driving Restrictions: No Additional Instructions or Follow Up instructions: Resume all your medications. You have an appointment on WedMay 20, at the [facility], in [facility]. PLEASE go to that appointment. No Smoking: If you smoke, Please STOP! Call for help.
[2018-05-12 12:08] VITALS: BP 121/89
--- NOTE | 2018-05-15 16:55 | DISCHARGE SUMMARY ---
Physician: Zoie Barakat MD DATE OF ADMISSION: 05/10/2018 DATE OF DISCHARGE: 05/12/2018 HISTORY OF PRESENT ILLNESS: This is a 17-year-old white male with type 1 diabetes, multiple admissions for DKA, history of neurogenic bladder from diabetic peripheral neuropathy, history of diabetic gastroparesis with frequent episodes of cyclical vomiting, history of depression and history of noncompliance. The patient presented with nausea and vomiting, dehydration, mild hyponatremia, small ketones but a normal pH of 7.496 and elevated glucose of 578. He was started on an insulin drip and managed in the ICU for hyperosmolar syndrome. HOSPITAL COURSE AND DISCHARGE DIAGNOSES 1. Hyperosmolar syndrome. He was on IV saline, insulin drip and eventually sliding scale insulin when his ketones became negative. His same insulin doses were resumed at discharge. 2. Diabetic gastroparesis. It was felt that despite having a normal gastric emptying study 8 months ago, he has had 2-3 admissions since then with gastroparesis by clinical evaluation. He benefits from Reglan dosing on a scheduled basis, at meals and at bedtime. He received antiemetics and Reglan and was able to take a liquid diet by day 2 and solid foods by day 3, after which he was discharged. 3. Abdominal pain. This is a recurrent problem when he has vomiting, as well as from urinary distention which is extreme, due to his neurogenic bladder. During his last 2 admissions, he was ordered p.r.n. bladder catheterization that he needed to learn. With improvement of his nausea and vomiting, and good bladder emptying, his abdominal pain resolved. 4. Neurogenic bladder. The patient had individual urine output volumes of 1100 mL of 1400 mL at a time, consistent with a neurogenic bladder hours. P.r.n. straight catheterization is needed, which he is aware of. 5. Depression. Two months ago, he was started on an antidepressant while here and he states that this has helped improve his mood somewhat. Fluoxetine was continued while here. LABORATORY AND IMAGING: Reviewed and summarized above. ALLERGIES: NONE. MEDICATIONS AT DISCHARGE 1. Fluoxetine 20 mg daily. 2. NovoLog insulin 0-12 units subcutaneous before meals and at bedtime. 3. Lantus insulin 20 units subcutaneous b.i.d. 4. Reglan 10 mg p.o. scheduled meals and at bedtime. 5. Omeprazole 20 mg p.o. daily. PHYSICAL EXAMINATION AT DISCHARGE GENERAL: Thin male. VITAL SIGNS: Blood pressure 121/89, pulse of 88-99 in sinus rhythm, afebrile, room air saturation 100%. HEENT: Unremarkable. NECK: Without JVD or carotid bruits. CHEST: Clear. HEART: Sounds are normal. ABDOMEN: Soft, nontender. Decreased bowel sounds. No organomegaly. No distended bladder. NEUROLOGIC: Intact. EXTREMITIES: Within normal limits. CODE STATUS: FULL CODE. FOLLOW UP: An appointment was made by our social worker school for him to be seen at the [facility] on 05/20/2018 at 2:15 p.m., and they will call him for a reminder. Time required to complete the entire discharge, chart review, dictation: 30 minutes. cc: JUAN Fabian TD: 05/14/2018 18:52 MTDD
== END 2018-05-12 12:45 | disposition home or self-care (01) | DRG 74 ==
LOC: ED 21:46 → ICU 22:48
PROVIDERS: ADMIT Hospitalist; ATTEND Internal Medicine
DX: E10.43 Type 1 diabetes mellitus with diabetic autonomic (poly)neuropathy (principal); E87.1 Hypo-osmolality and hyponatremia; K31.84 Gastroparesis; E86.0 Dehydration; Z91.14 Patient's other noncompliance with medication regimen; N31.9 Neuromuscular dysfunction of bladder, unspecified; F32.9 Major depressive disorder, single episode, unspecified; R00.0 Tachycardia, unspecified
CPT/HCPCS: 36415; 71045; 80048; 80053; 81001; 81003; 82009; 82803; 82947; 83036; 83690; 83735; 84100; 84484; 85025; 87086; 87150; 93005; 96365; 96375; 99284

== ENCOUNTER 2018-05-28 14:49 | Inpatient (IN) | payer MEDICAID ==
[2018-05-28] MEDS ORDERED: LACTATED RINGERS 1,000 ML IV STA (15:23)
[2018-05-28] MEDS ORDERED: HALOPERIDOL 5 MG/ML VIAL IVP ONE (15:23)
[2018-05-28] MEDS ORDERED: HYDROmorphone 2 MG/ML VIAL IVP STA (15:23)
[2018-05-28] MEDS ORDERED: INSULIN REGULAR HUMAN 100 UNIT/1 ML 10 ML MDV IVP STA (15:23)
--- NOTE | 2018-05-28 15:25 | ED Physician Documentation ---
PD HPI ABD PAIN - Stated complaint Stated Complaint: AB PX/N/V - Chief complaint Chief Complaint: Abd Pain - History obtained from History obtained from: Patient - History of Present Illness Timing - onset: Other (This is a 18-year-old gentleman with type 1 diabetes and a long history of pain episodes related to get diabetic gastroparesis. He is a frequent emergency department user for same and has had 2 admissions IN THE LAST MONTH. He has had 2 days of diffuse and upper abdominal pain with several episodes of vomiting. No diarrhea and no blood in the vomit. He has taken his insulin today and has run out of his Reglan.) Review of Systems Ten Systems: 10 systems reviewed and negative Constitutional: reports: Fatigue. denies: Fever, Chills Throat: denies: Sore throat Cardiac: denies: Chest pain / pressure, Palpitations Respiratory: denies: Dyspnea, Cough PD PAST MEDICAL HISTORY - Past Medical History Cardiovascular: None Respiratory: None Neuro: Peripheral neuropathy Endocrine/Autoimmune: Type 1 diabetes GI: Other (Diabetic gastroparesis) : None HEENT: None Psych: Depression, Anxiety Musculoskeletal: None Derm: None - Past Surgical History Past Surgical History: No - Present Medications Home Medications: Ambulatory Orders Medication Instructions Recorded Confirmed Insulin Aspart [Novolog] 0 - 12 unit SUBQ TIDWM 04/15/15 05/11/18 Fluoxetine HCl 20 mg PO DAILY 04/29/18 05/11/18 Insulin Glargine [Lantus Solostar] 20 units SUBQ BID 04/29/18 05/11/18 Metoclopramide [Reglan] 10 mg PO ACHS #60 tablet 04/30/18 05/11/18 - Allergies Allergies/Adverse Reactions: Allergies Allergy/AdvReac Type Severity Reaction Status Date / Time No Known Drug Allergies Allergy Verified 05/28/18 14:55 - Social History Does the pt smoke?: No Smoking Status: Never smoker Does the pt drink ETOH?: Yes Does the pt have substance abuse?: No - Family History Family history: reports: Non contributory - Immunizations Immunizations are current?: Yes - POLST Patient has POLST: No POLST Status: Full Code PD ED PE NORMAL - Vitals Vital signs reviewed: Yes - General General: Alert and oriented X 3, No acute distress - HEENT HEENT: Ears normal, Other (Slightly dry mucous membranes with a mild case of lingual thrush) - Neck Neck: Supple, no meningeal sign, No bony TTP - Cardiac Cardiac: RRR, No murmur - Respiratory Respiratory: No respiratory distress, Clear bilaterally - Abdomen Abdomen: Other (Modest diffuse and upper abdominal tenderness without surgical signs, normal bowel tones.) - Back Back: No CVA TTP - Derm Derm: Normal color, Warm and dry - Extremities Extremities: No deformity, No tenderness to palpate - Psych Psych: Normal mood, Normal affect Results - Vitals Vitals: Vital Signs - 24 hr 05/28/18 14:53 Temperature 36.0 C L Heart Rate 120 H Respiratory 16 Rate Blood Pressure 100/74 O2 Saturation 100 Oxygen O2 Source Room air - Labs Labs: Laboratory Tests 05/28/18 05/28/18 05/28/18 15:08 15:45 15:45 WBC 7.6 RBC 5.26 Hgb 15.9 Hct 48.4 MCV 92.0 MCH 30.2 MCHC 32.9 RDW 13.4 Plt Count 380 MPV 8.0 Neut # (Auto) 6.3 Lymph # (Auto) 1.0 L [place] # (Auto) 0.2 Eos # (Auto) 0.0 Baso # (Auto) 0.0 Absolute Nucleated RBC 0.01 Nucleated RBC % 0.1 VBG pH VBG pCO2 VBG pO2 VBG HCO3 VBG Total CO2 VBG O2 Saturation VBG Base Excess Sodium 136 Potassium 4.1 Chloride 106 Carbon Dioxide 9 L* Anion Gap 21.0 H BUN 18 Creatinine 0.8 Estimated GFR (MDRD) 123 Glucose 407 H POC Whole Bld Glucose 414 H Calcium 10.0 Total Bilirubin 1.5 H AST 16 ALT 15 Alkaline Phosphatase 95 Total Protein 9.0 H Albumin 4.7 Globulin 4.3 H Albumin/Globulin Ratio 1.1 Lipase 20 L Serum Ketones SMALL H 05/28/18 15:45 WBC RBC Hgb Hct MCV MCH MCHC RDW Plt Count MPV Neut # (Auto) Lymph # (Auto) [place] # (Auto) Eos # (Auto) Baso # (Auto) Absolute Nucleated RBC Nucleated RBC % VBG pH 7.155 L VBG pCO2 24.6 L VBG pO2 44.6 VBG HCO3 8.5 L VBG Total CO2 9.2 L VBG O2 Saturation 80.3 H VBG Base Excess -18.4 L Sodium Potassium Chloride Carbon Dioxide Anion Gap BUN Creatinine Estimated GFR (MDRD) Glucose POC Whole Bld Glucose Calcium Total Bilirubin AST ALT Alkaline Phosphatase Total Protein Albumin Globulin Albumin/Globulin Ratio Lipase Serum Ketones PD MEDICAL DECISION MAKING - ED course ED course: 18-year-old gentleman with history of diabetes presents with upper abdominal pain and gastroparesis exacerbation and also evidence of DKA. He is started on insulin drip and I spoke with the hospitalist for admission at 4:43 PM. - Critical Care Time(min): 36 Time Includes: Direct patient care, Review records, Reassess patient, Document care, Coordinate care, Medical consult Data interpretation: Labs - Sepsis Event Vital Signs: Vital Signs - 24 hr 05/28/18 14:53 Temperature 36.0 C L Heart Rate 120 H Respiratory 16 Rate Blood Pressure 100/74 O2 Saturation 100 Oxygen O2 Source Room air Departure - Departure Disposition: 66 [facility] DC/Xfer Clinical Impression: DKA (diabetic ketoacidoses) Qualifiers: Diabetes mellitus type: type 1 Diabetes mellitus complication detail: without coma Qualified Code(s): E10.10 - Type 1 diabetes mellitus with ketoacidosis without coma Condition: Serious
[2018-05-28 15:54] LABS: BASOPHILS % (AUTO) 0.5 %; EOSINOPHILS % (AUTO) 0.2 %; HGB - HEMOGLOBIN 15.9 g/dL (14.0-18.0); LYMPHOCYTES % (AUTO) 12.9 %; MEAN CORPUSCULAR HEMOGLOBIN 30.2 pg (27.0-31.0); MEAN CORPUSCULAR HGB CONC 32.9 g/dL (32.0-36.0); MONOCYTES # (AUTO) 0.2 10^3/uL (0.0-1.0); MONOCYTES % (AUTO) 2.9 %; NEUTROPHILS # (AUTO) 6.3 10^3/uL (1.5-6.6); NEUTROPHILS % (AUTO) 83.5 %; PLT - PLATELET COUNT 380 10^3/uL (130-450); RED BLOOD COUNT 5.26 10^6/uL (4.70-6.10); RED CELL DISTRIBUTION WIDTH 13.4 % (12.0-15.0); WHITE BLOOD COUNT 7.6 x10^3/uL (4.8-10.8)
[2018-05-28 16:02] LABS: KETONES, SERUM (ACETEST) SMALL (NEGATIVE)
[2018-05-28 16:03] LABS: VBG BASE EXCESS -18.4 mmol/L (-2 - +2); VBG PCO2 24.6 mmHg (41-51); VBG PH 7.155 (7.31-7.41); VBG PO2 44.6 mmHg (25-47); VBG TOTAL CO2 9.2 mmol/L (24-29)
[2018-05-28 16:26] LABS: ALBUMIN 4.7 g/dL (3.2-5.5); ALBUMIN/GLOBULIN RATIO 1.1 (1.0-2.2); ALKALINE PHOSPHATASE 95 IU/L (42-121); ALT ALANINE AMINOTRANSFERASE 15 IU/L (10-60); AST ASPARTATE AMINOTRANSFERASE 16 IU/L (10-42); BILIRUBIN,TOTAL 1.5 mg/dL (0.2-1.0); BUN - BLOOD UREA NITROGEN 18 mg/dL (6-20); CHLORIDE 106 mmol/L (101-111); CREATININE 0.8 mg/dL (0.6-1.2); GFR - MDRD 123 (>89); GLUCOSE 407 mg/dL (70-100); LIPASE 20 U/L (22-51); SODIUM 136 mmol/L (135-145)
[2018-05-28 16:27] LABS: CARBON DIOXIDE - CO2 9 mmol/L (21-32)
[2018-05-28] MEDS ORDERED: ONDANSETRON 4 MG/2 ML VIAL IVP PRN (16:51)
[2018-05-28] MEDS ORDERED: PROCHLORPERAZINE 10 MG/2 ML VIAL IVP PRN (16:51)
[2018-05-28] MEDS ORDERED: INSULIN REGULAR HUMAN 100 UNIT in SODIUM CHLORIDE 0.9% 100ML 99 ML IV SCH ×2 (16:55→17:00)
[2018-05-28] MEDS ORDERED: LIDOCAINE 2% URO-JET 5 ML SYRINGE UR PRN (16:55)
[2018-05-28] MEDS ORDERED: ELECTROLYTE-A SOLUTION 1,000 ML IV SCH (17:00)
[2018-05-28] MEDS ORDERED: INSULIN REGULAR HUMAN 100 UNIT in SODIUM CHLORIDE 0.9% 100ML 99 ML IV ONE (17:00)
[2018-05-28 17:30] LABS: KETONES, SERUM (ACETEST) MODERATE (NEGATIVE)
[2018-05-28 17:35] LABS: CALCIUM 9.7 mg/dL (8.5-10.3); CREATININE 0.9 mg/dL (0.6-1.2)
[2018-05-28] MEDS ORDERED: SODIUM CHLORIDE 0.9% 1,000 ML IV SCH (18:00)
[2018-05-28] MEDS ORDERED: METOCLOPRAMIDE 10 MG/2 ML VIAL IVP SCH (18:00)
[2018-05-28] MEDS: SODIUM CHLORIDE FLUSH 0.9% 10 ML SYRINGE IVP SCH ×3 (18:14→22:30)
[2018-05-28] MEDS: HYDROmorphone 1 MG/ML CARPUJECT IVP PRN ×2 (18:34→22:30)
[2018-05-28 19:29] LABS: KETONES, SERUM (ACETEST) SMALL (NEGATIVE)
[2018-05-28 19:31] LABS: BUN - BLOOD UREA NITROGEN 21 mg/dL (6-20); CALCIUM 9.9 mg/dL (8.5-10.3); CARBON DIOXIDE - CO2 14 mmol/L (21-32); CHLORIDE 111 mmol/L (101-111); CREATININE 0.8 mg/dL (0.6-1.2); GFR - MDRD 123 (>89); GLUCOSE 238 mg/dL (70-100); MAGNESIUM 2.1 mg/dL (1.7-2.8); SODIUM 138 mmol/L (135-145)
[2018-05-28] MEDS: PANTOPRAZOLE 40 MG VIAL IVP SCH (20:16)
[2018-05-28] MEDS: SODIUM CHLORIDE FLUSH 0.9% 10 ML SYRINGE IVP PRN (20:16)
[2018-05-28] MEDS: D5NS W/20 MEQ KCL 1,000 ML IV SCH (20:49)
[2018-05-28 21:40] LABS: BUN - BLOOD UREA NITROGEN 22 mg/dL (6-20); CALCIUM 9.5 mg/dL (8.5-10.3); CARBON DIOXIDE - CO2 15 mmol/L (21-32); CHLORIDE 111 mmol/L (101-111); CREATININE 0.7 mg/dL (0.6-1.2); GFR - MDRD 144 (>89); GLUCOSE 220 mg/dL (70-100); KETONES, SERUM (ACETEST) SMALL (NEGATIVE); SODIUM 137 mmol/L (135-145)
--- NOTE | 2018-05-28 22:02 | HISTORY & PHYSICAL EXAMINATION ---
DATE OF SERVICE: 05/28/2018 Physician: Zoie Barakat MD HISTORY OF PRESENT ILLNESS: This is a 18-year-old white male with a history of type 1 diabetes, freq uent DKA admissions, gastroparesis from diabetes, neurogenic bladder from diabetes that causes him oc casional abdominal pain when he has distention. The patient is admitted again with nausea and vomiti ng, and he "ran out of his Reglan." He presents in DKA. PAST MEDICAL HISTORY 1. Type 1 diabetes. 2. Frequent DKA. 3. Neurogenic bladder. 4. Diabetic gastroparesis. 5. Noncompliance with medical management/attending doctor's appointments. ALLERGIES: NONE. MEDICATIONS 1. Reglan 10 mg p.o. a.c. and at bedtime. 2. Lantus SoloStar insulin 20 units b.i.d. 3. NovoLog insulin 1-12 units t.i.d. with meals. 4. Fluoxetine 20 mg daily. FAMILY HISTORY: No inherited diseases. SOCIAL HISTORY: The patient lives with one of his aunts. He is estranged from his mother, and he ne abdon knew his father. The patient intermittently is a cigarette smoker as well as a pot smoker and ra rely uses alcohol. REVIEW OF SYSTEMS: There has been no cough, fever, diarrhea, dysuria. A comprehensive review of sys tems was performed, and the pertinent positives are listed. The rest are negative. PHYSICAL EXAMINATION GENERAL: Thin white male. He is in no distress, currently sleeping. VITAL SIGNS: Blood pressure 100/75, pulse of 125 in sinus tachycardia. HEENT: He has dysmorphic facies. Oral mucosa is dry. NECK: Without JVD. CHEST: Clear. HEART: Sounds normal. No murmur. No RV heave. ABDOMEN: Soft, scaphoid, nontender. No guarding or rebound. No distention of his bladder currently . EXTREMITIES: Without edema. NEUROLOGIC: Intact except currently he is fatigued and asleep. LABORATORY DATA: Sodium 136, potassium 4.1, anion gap 21, BUN 18, creatinine 0.8, glucose 414. Bili waller 1.5. Lipase normal. Venous blood gas showed a pH of 7.155. CBC essentially normal. Toxicolo gy showed small and then moderate serum ketones. DIAGNOSTIC STUDIES: EKG: Sinus tachycardia and early repolarization, no significant change from pre vious. No chest x-ray was done. IMPRESSION/DIAGNOSES 1. Diabetic ketoacidosis. 2. Diabetic gastroparesis. 3. Type 1 diabetes with poor control. PLAN: Admit to the ICU. Start a DKA protocol including insulin drip, glucose checks, ketones checks , pH VBG checks, and anion gap checks. N.p.o. until he is no longer nauseated, then start clear liqu ids and advance the diet. Restart his Reglan. Pain medications p.r.n. for the abdominal pain that i s associated with his gastroparesis as well as bladder distention. CODE STATUS: FULL CODE. DEEP VENOUS THROMBOSIS PROPHYLAXIS: SCDs. ATTESTATION: The patient is expected to be discharged or transferred to another facility within 96 h ours: Yes. TD: 05/28/2018 20:59
[2018-05-29] MEDS: D5NS W/20 MEQ KCL 1,000 ML IV SCH ×3 (04:45→20:05)
[2018-05-29] MEDS: METOCLOPRAMIDE 10 MG TABLET PO SCH ×4 (06:52→20:05)
[2018-05-29 06:57] LABS: VBG PH 7.295 (7.31-7.41)
[2018-05-29 07:04] LABS: KETONES, SERUM (ACETEST) SMALL (NEGATIVE)
[2018-05-29 07:06] LABS: MAGNESIUM 1.6 mg/dL (1.7-2.8)
[2018-05-29 07:41] LABS: BASOPHILS % (AUTO) 0.7 %; EOSINOPHILS # (AUTO) 0.1 10^3/uL (0.0-0.7); EOSINOPHILS % (AUTO) 1.2 %; HGB - HEMOGLOBIN 12.4 g/dL (14.0-18.0); LYMPHOCYTES # (AUTO) 1.8 10^3/uL (1.5-3.5); LYMPHOCYTES % (AUTO) 32.8 %; MEAN CORPUSCULAR HEMOGLOBIN 30.8 pg (27.0-31.0); MEAN CORPUSCULAR HGB CONC 34.2 g/dL (32.0-36.0); MEAN CORPUSCULAR VOLUME 90.1 fL (80.0-94.0); MEAN PLATELET VOLUME 7.7 fL (7.4-11.4); MONOCYTES # (AUTO) 0.3 10^3/uL (0.0-1.0); NEUTROPHILS # (AUTO) 3.3 10^3/uL (1.5-6.6); NEUTROPHILS % (AUTO) 59.3 %; PLT - PLATELET COUNT 265 10^3/uL (130-450); RED BLOOD COUNT 4.02 10^6/uL (4.70-6.10); RED CELL DISTRIBUTION WIDTH 13.2 % (12.0-15.0); WHITE BLOOD COUNT 5.6 x10^3/uL (4.8-10.8)
[2018-05-29 07:46] LABS: ALBUMIN 3.1 g/dL (3.2-5.5); BILIRUBIN,TOTAL 0.7 mg/dL (0.2-1.0); CALCIUM 8.4 mg/dL (8.5-10.3); CREATININE 0.4 mg/dL (0.6-1.2); TOTAL PROTEIN 6.1 g/dL (6.7-8.2)
[2018-05-29] MEDS: HYDROmorphone 1 MG/ML CARPUJECT IVP PRN ×6 (08:26→23:34)
[2018-05-29] MEDS: PANTOPRAZOLE 40 MG VIAL IVP SCH ×2 (08:26→20:05)
[2018-05-29] MEDS: SODIUM CHLORIDE FLUSH 0.9% 10 ML SYRINGE IVP PRN (08:52)
[2018-05-29] MEDS: SODIUM CHLORIDE FLUSH 0.9% 10 ML SYRINGE IVP SCH ×3 (08:52→23:34)
[2018-05-29] MEDS: NEUTRA-PHOS 250 MG TABLET PO SCH ×2 (08:59→13:27)
[2018-05-29] MEDS: POLYETHYLENE GLYCOL 3350 17 GM PACKET PO SCH (08:59)
[2018-05-29] MEDS ORDERED: NS W/40 MEQ KCL 1,000 ML IV SCH (09:00)
[2018-05-29] MEDS: ENOXAPARIN 40 MG/0.4 ML SYRINGE SUBQ SCH (09:07)
[2018-05-29] MEDS: MAGNESIUM OXIDE 400 MG TABLET PO SCH ×2 (10:07→16:09)
--- NOTE | 2018-05-29 10:58 | PROVIDER PROGRESS NOTE ---
Assessment/Plan - Problem List (1) DKA (diabetic ketoacidoses) Qualifiers: Diabetes mellitus type: type 1 Diabetes mellitus complication detail: without coma Qualified Code(s): E10.10 - Type 1 diabetes mellitus with ketoacidosis without coma Assessment/Plan: Pt still has serum ketones SMALL and low pH on VBG. Continue to monitor fingersticks, BMP, VBG, and seum ketones. Continue iv fluids and low dose iv Insulin drip. Possible transition to Lantus Insulin tonight. (2) Diabetic gastroparesis Assessment/Plan: Improved gastric symptoms with iv Reglan prn and restarted on his scheduled po Reglan, which he said he ran out of. Continue to advance diet as tolerated. (3) Neurogenic bladder Assessment/Plan: Pt had a urine output of >1 L all at once, which is the patient's usual amount, due to a distended bladder from a neurogenic bladder. Continue to monitor I's and O's. (4) Hypokalemia Assessment/Plan: Replace with po and iv K. Monitor daily BMP. (5) Hypomagnesemia Assessment/Plan: Replace Mg and monitor daily. - Current Meds Current Meds: Current Medications Generic Name Dose Route Start Last Admin Trade Name Freq PRN Reason Stop Dose Admin Enoxaparin Sodium 40 mg 05/29/18 09:00 05/29/18 09:07 Lovenox SUBQ 40 mg DAILY SHEILA Administration Hydromorphone HCl 1 mg 05/28/18 17:06 05/29/18 08:26 Dilaudid Inj Carp IVP 1 mg Q2H PRN Administration PAIN Insulin Human Regular 100 unit 100 mls @ 4.98 mls/hr 05/28/18 17:00 05/29/18 10:00 / Sodium Chloride IV 05/29/18 13:04 1 unit/hr .Q20H5M ONE 1 mls/hr Protocol Titration 4.98 UNIT/HR Potassium Chloride/Dextrose/Sod Cl 1,000 mls @ 125 mls/hr 05/28/18 21:00 11/14 10:00 IV 125 mls/hr .Q8H SHEILA Infusion Magnesium Oxide 400 mg 05/29/18 10:00 05/29/18 10:07 Mag Ox PO 05/29/18 16:01 400 mg Q6H SHEILA Administration Protocol Metoclopramide HCl 10 mg 05/29/18 07:00 05/29/18 06:52 Reglan PO 10 mg ACHS SHEILA Administration Pantoprazole Sodium 40 mg 05/28/18 21:00 05/29/18 08:26 Protonix IVP 40 mg BID SHEILA Administration Polyethylene Glycol 17 gm 05/29/18 09:00 05/29/18 08:59 Miralax PO 17 gm DAILY SHEILA Administration Sodium Chloride 10 ml 05/28/18 17:00 05/29/18 08:52 Normal Saline Flush 0.9% IVP 10 ml 0100,0900,1700 SHEILA Administration Sodium Chloride 10 ml 05/28/18 16:51 05/29/18 08:52 Normal Saline Flush 0.9% IVP 10 ml PRN PRN Administration NEEDED PER PROVIDER ORDERS Sodium Phosphate 250 mg 05/29/18 08:00 05/29/18 08:59 K-Phos Neutral PO 05/29/18 12:01 250 mg 0800,1200 SHEILA Administration Protocol - Lab Result Fish Bone Diagrams: 05/29/18 06:47 05/29/18 12:55 - Additional Planning My Orders: My Active Orders 05/28/18 19:17 Nutrition Consult [CONS] Routine 05/28/18 21:00 D5ns W/20 Meq KCl 1,000 ml IV 125 mls/hr 05/29/18 07:00 Metoclopramide [Reglan] 10 mg PO ACHS 05/29/18 08:00 Neutra-Phos [K-Phos Neutral] 250 mg PO 0800,1200 Potassium Chlor 10 Meq/100 ml [Potassium Chloride] 10 meq in 100 ml IV Q1H 05/29/18 09:00 Polyethylene Glycol 3350 [Miralax] 17 gm PO DAILY 05/29/18 10:00 Magnesium Oxide [Mag Ox] 400 mg PO Q6H 05/30/18 05:00 CALCIUM, IONIZED ([facility]) [BG] DAILYLAB MAGNESIUM [CHEM] DAILYLAB PHOSPHORUS [CHEM] DAILYLAB 05/31/18 05:00 CALCIUM, IONIZED ([facility]) [BG] DAILYLAB MAGNESIUM [CHEM] DAILYLAB PHOSPHORUS [CHEM] DAILYLAB Subjective - Subjective Patient Reports: Feeling Better Nursing Reports: Other (Abdominal pain and N/V decreased and has an appetitie and asked for advancing his diet.) Objective Vital Signs: Vital Signs - 24 hr 05/28/18 05/28/18 05/28/18 17:07 17:39 18:00 Temperature 36.4 C L Heart Rate 119 H 112 H Heart Rate [ 125 H Monitoring electrodes] Respiratory 12 12 12 Rate Blood Pressure 93/65 98/62 Blood Pressure 103/70 [Right Brachial artery] O2 Saturation 100 100 100 05/28/18 05/28/18 05/28/18 19:00 19:22 20:00 Temperature 36.6 C Heart Rate Heart Rate [ 127 H 125 H 125 H Monitoring electrodes] Respiratory 7 L 7 L 8 L Rate Blood Pressure Blood Pressure 93/67 93/67 100/75 [Right Brachial artery] O2 Saturation 99 100 100 05/28/18 05/28/18 05/28/18 21:00 22:00 22:39 Temperature 36.4 C L Heart Rate Heart Rate [ 125 H 118 H Monitoring electrodes] Respiratory 9 L 8 L Rate Blood Pressure Blood Pressure 98/65 98/67 [Right Brachial artery] O2 Saturation 100 100 05/28/18 05/29/18 05/29/18 23:00 00:00 01:00 Temperature Heart Rate Heart Rate [ 114 H 109 H 116 H Monitoring electrodes] Respiratory 7 L 8 L 15 Rate Blood Pressure Blood Pressure 105/75 99/74 113/99 H [Right Brachial artery] O2 Saturation 100 100 100 05/29/18 05/29/18 05/29/18 02:00 03:00 04:00 Temperature 36.2 C L Heart Rate Heart Rate [ 89 95 90 Monitoring electrodes] Respiratory 10 L 11 L 9 L Rate Blood Pressure Blood Pressure 123/90 H 116/91 H 121/85 H [Right Brachial artery] O2 Saturation 100 100 100 05/29/18 05/29/18 05/29/18 05:00 06:00 07:00 Temperature Heart Rate Heart Rate [ 92 86 99 Monitoring electrodes] Respiratory 8 L 9 L 13 Rate Blood Pressure Blood Pressure 109/81 H 109/80 119/82 H [Right Brachial artery] O2 Saturation 100 100 05/29/18 05/29/18 05/29/18 08:00 09:00 10:00 Temperature 36.3 C L Heart Rate Heart Rate [ 97 103 H 104 H Monitoring electrodes] Respiratory 14 13 11 L Rate Blood Pressure Blood Pressure 116/66 116/81 H 113/72 [Right Brachial artery] O2 Saturation 100 99 100 Oxygen O2 Source Room air I&O (Last 24 Hrs): Intake and Output Totals x24h 05/27/18 05/28/18 05/29/18 23:59 23:59 23:59 Intake Total 0766.132 6617.333 Output Total 0 1000 Balance 2211.338 0695.333 General: Alert, Other (Appears fatigued) HEENT: Mucous membr. moist/pink Neck: Supple Neuro: Non Focal Cardiovascular: Regular rate, No murmurs Respiratory: No respiratory distress, Breath sounds nml Abdomen: Soft, No tenderness Extremities: No edema - Results Results: Laboratory Results WBC 5.6 x10^3/uL (4.8-10.8) 05/29/18 06:47 RBC 4.02 10^6/uL (4.70-6.10) L 05/29/18 06:47 Hgb 12.4 g/dL (14.0-18.0) L 05/29/18 06:47 Hct 36.2 % (42.0-52.0) L 05/29/18 06:47 MCV 90.1 fL (80.0-94.0) 05/29/18 06:47 MCH 30.8 pg (27.0-31.0) 05/29/18 06:47 MCHC 34.2 g/dL (32.0-36.0) 05/29/18 06:47 RDW 13.2 % (12.0-15.0) 05/29/18 06:47 Plt Count 265 10^3/uL (130-450) 05/29/18 06:47 MPV 7.7 fL (7.4-11.4) 05/29/18 06:47 Neut # (Auto) 3.3 10^3/uL (1.5-6.6) 05/29/18 06:47 Lymph # (Auto) 1.8 10^3/uL (1.5-3.5) 05/29/18 06:47 [place] # (Auto) 0.3 10^3/uL (0.0-1.0) 05/29/18 06:47 Eos # (Auto) 0.1 10^3/uL (0.0-0.7) 05/29/18 06:47 Baso # (Auto) 0.0 10^3/uL (0.0-0.1) 05/29/18 06:47 Absolute Nucleated RBC 0.00 x10^3/uL 05/29/18 06:47 Nucleated RBC % 0.0 /100WBC 05/29/18 06:47 VBG pH 7.295 (7.31-7.41) L 05/29/18 06:47 VBG pCO2 24.6 mmHg (41-51) L 05/28/18 15:45 VBG pO2 44.6 mmHg (25-47) 05/28/18 15:45 VBG HCO3 8.5 mmol/L (23-28) L 05/28/18 15:45 VBG Total CO2 9.2 mmol/L (24-29) L 05/28/18 15:45 VBG O2 Saturation 80.3 % (60-80) H 05/28/18 15:45 VBG Base Excess -18.4 mmol/L (-2 - +2) L 05/28/18 15:45 Ionized Calcium 1.22 mmol/L (1.15-1.33) 05/29/18 06:47 Sodium 137 mmol/L (135-145) 05/29/18 06:47 Potassium 3.2 mmol/L (3.5-5.0) L 05/29/18 06:47 Chloride 111 mmol/L (101-111) 05/29/18 06:47 Carbon Dioxide 19 mmol/L (21-32) L 05/29/18 06:47 Anion Gap 7.0 (6-13) 05/29/18 06:47 BUN 15 mg/dL (6-20) 05/29/18 06:47 Creatinine 0.4 mg/dL (0.6-1.2) L 05/29/18 06:47 Estimated GFR (MDRD) 274 (>89) 05/29/18 06:47 Glucose 198 mg/dL (70-100) H 05/29/18 06:47 POC Whole Bld Glucose 268 mg/dL (70 - 100) H 05/29/18 10:04 Calcium 8.4 mg/dL (8.5-10.3) L 05/29/18 06:47 Phosphorus 2.0 mg/dL (2.5-4.6) L 05/29/18 06:47 Magnesium 1.6 mg/dL (1.7-2.8) L 05/29/18 06:47 Total Bilirubin 0.7 mg/dL (0.2-1.0) 05/29/18 06:47 AST 11 IU/L (10-42) 05/29/18 06:47 ALT 11 IU/L (10-60) 05/29/18 06:47 Alkaline Phosphatase 63 IU/L (42-121) 05/29/18 06:47 Total Protein 6.1 g/dL (6.7-8.2) L 05/29/18 06:47 Albumin 3.1 g/dL (3.2-5.5) L 05/29/18 06:47 Globulin 3.0 g/dL (2.1-4.2) 05/29/18 06:47 Albumin/Globulin Ratio 1.0 (1.0-2.2) 05/29/18 06:47 Lipase 20 U/L (22-51) L 05/28/18 15:45 Serum Ketones SMALL (NEGATIVE) H 05/29/18 10:35 - Procedures Procedures: Procedures EXCISION OF DUODENUM, ENDO, DIAGN (03/10/18) EXCISION OF LOWER ESOPHAGUS, ENDO, DIAGN (03/10/18) EXCISION OF STOMACH, ENDO, DIAGN (03/10/18) ABX Reporting Has patient been on IV antibiotics over the past 48 hours?: No
[2018-05-29 13:12] LABS: CALCIUM 8.2 mg/dL (8.5-10.3); CREATININE 0.4 mg/dL (0.6-1.2)
[2018-05-29] MEDS ORDERED: INSULIN REGULAR HUMAN 100 UNIT in SODIUM CHLORIDE 0.9% 100ML 99 ML IV SCH (19:00)
[2018-05-29] MEDS ORDERED: POTASSIUM CHLORIDE 20 MEQ/15 ML UDC PO ONE (19:29)
[2018-05-29] MEDS: POTASSIUM CHLOR 10 MEQ/100 ML 10 MEQ/100 ML BAG IV SCH ×3 (19:51→19:53)
[2018-05-30] MEDS: HYDROmorphone 1 MG/ML CARPUJECT IVP PRN ×2 (03:06→09:19)
[2018-05-30] MEDS: D5NS W/20 MEQ KCL 1,000 ML IV SCH (04:17)
[2018-05-30 05:29] LABS: BASOPHILS % (AUTO) 0.5 %; EOSINOPHILS # (AUTO) 0.1 10^3/uL (0.0-0.7); EOSINOPHILS % (AUTO) 1.6 %; HGB - HEMOGLOBIN 11.1 g/dL (14.0-18.0); LYMPHOCYTES # (AUTO) 1.6 10^3/uL (1.5-3.5); LYMPHOCYTES % (AUTO) 42.3 %; MEAN CORPUSCULAR HEMOGLOBIN 31.2 pg (27.0-31.0); MEAN CORPUSCULAR HGB CONC 35.5 g/dL (32.0-36.0); MEAN PLATELET VOLUME 7.7 fL (7.4-11.4); MONOCYTES # (AUTO) 0.3 10^3/uL (0.0-1.0); MONOCYTES % (AUTO) 6.9 %; NEUTROPHILS # (AUTO) 1.8 10^3/uL (1.5-6.6); NEUTROPHILS % (AUTO) 48.7 %; PLT - PLATELET COUNT 227 10^3/uL (130-450); RED BLOOD COUNT 3.56 10^6/uL (4.70-6.10); WHITE BLOOD COUNT 3.7 x10^3/uL (4.8-10.8)
[2018-05-30 05:42] LABS: CALCIUM 8.3 mg/dL (8.5-10.3); CREATININE 0.3 mg/dL (0.6-1.2); MAGNESIUM 1.9 mg/dL (1.7-2.8); PHOSPHORUS 2.4 mg/dL (2.5-4.6)
[2018-05-30] MEDS: METOCLOPRAMIDE 10 MG TABLET PO SCH ×2 (06:55→11:02)
[2018-05-30] MEDS: NEUTRA-PHOS 250 MG TABLET PO SCH ×2 (06:55→09:00)
[2018-05-30] MEDS ORDERED: POTASSIUM CHLORIDE 20 MEQ/15 ML UDC PO SCH (08:00)
[2018-05-30] MEDS: SODIUM CHLORIDE FLUSH 0.9% 10 ML SYRINGE IVP SCH (08:59)
[2018-05-30] MEDS: SODIUM CHLORIDE FLUSH 0.9% 10 ML SYRINGE IVP PRN (08:59)
[2018-05-30] MEDS: ENOXAPARIN 40 MG/0.4 ML SYRINGE SUBQ SCH (08:59)
[2018-05-30] MEDS: PANTOPRAZOLE 40 MG VIAL IVP SCH (09:00)
[2018-05-30] MEDS: POLYETHYLENE GLYCOL 3350 17 GM PACKET PO SCH (09:00)
[2018-05-30 10:33] LABS: BUN - BLOOD UREA NITROGEN < 5 mg/dL (6-20); CALCIUM 8.1 mg/dL (8.5-10.3); CARBON DIOXIDE - CO2 28 mmol/L (21-32); CHLORIDE 103 mmol/L (101-111); CREATININE 0.3 mg/dL (0.6-1.2); GFR - MDRD 382 (>89); GLUCOSE 246 mg/dL (70-100); SODIUM 135 mmol/L (135-145)
--- NOTE | 2018-05-30 11:37 | Discharge Plan ---
Discharge Plan Disposition: Home, Self Care Condition: Stable Prescriptions: Fluoxetine HCl 20 mg PO DAILY #60 capsule Metoclopramide [Reglan] 10 mg PO ACHS #120 tablet Diet: Diabetic Activity Restrictions: Activity as Tolerated Instruction Topics: Diabetes Correctional Cook Complications, Gastroparesis Additional Instructions or Follow Up instructions: Resume all your pre-hospital medications. A new prescription for Reglan (for nausea) and Fluoxitene (for depression) have been re-ordered. They have no refills because refills needs to be managed by your Primary Care Provider. If you don't get a provider and keep running out of medications after a month, you will have this recurring problem of dehydration from vomiting that puts you into DKA which could be harmful and dangerous. Stay hydrated and follow a diabetic diet plan. No Smoking: If you smoke, Please STOP! Call for help. Follow-up with: Ailin Kumar DNP [Primary Care Provider] -
[2018-05-30] MEDS ORDERED: INSULIN ASPART 300 UNIT/3 ML PEN SUBQ SCH (12:00)
[2018-05-30 12:44] VITALS: BP 118/86
--- NOTE | 2018-05-31 02:41 | DISCHARGE SUMMARY ---
Physician: Zoie Barakat MD DATE OF ADMISSION: 05/28/2018 DATE OF DISCHARGE: 05/30/2018 HISTORY OF PRESENT ILLNESS: This is a 18-year-old, white male with a history of type 1 diabetes, frequent DKA admissions; history of gastroparesis from diabetes, which causes nausea, vomiting and dehydration leading to DKA, unless he takes Reglan a.c. and at bedtime. He also has a neurogenic bladder from diabetes, which has caused abdominal pain from distention up to as high as his umbilicus on past admissions. The patient is admitted again with nausea and vomiting because he "ran out of his Reglan." He did admit that he has not seen his PCP, as was arranged for him, to get refills on these medications. HOSPITAL COURSE AND DISCHARGE DIAGNOSES 1. Diabetic ketoacidosis. The patient had blood tests showing a glucose of 414 , anion gap of 21, VBG with pH of 7.15. He was placed in the ICU on a DKA protocol including an insulin drip, frequent monitoring of electrolytes, glucose levels, serum ketones. His diet was on hold, then eventually advanced until he tolerated solids. The ketones cleared on 05/30/2018, and he was able to be discharged to resume his prior Lantus and Regular insulin dosing. 2. Diabetic gastroparesis. The patient has apparently had good success with control of GI symptoms when he takes Reglan a.c. and at bedtime. He admitted to running out, but then also admitted that he did not see his PCP for a refill. He was placed on his Reglan p.o. and p.r.n. iv Reglan doses while here , and the emesis and abdominal pain stopped the day after admission. 3. Neurogenic bladder. The patient has infrequent urination, but is able to eliminate his distended bladder, voiding over 1 liter at a time. He has had prior problems with the distended bladder causing pain, required straight catheterization and was even sent home with supplies for straight catheterization in the past. 4. Hypokalemia. This persisted despite his electrolyte corrections and he required replacement, both IV and p.o. 5. Hypomagnesemia. This also required IV and p.o. replacement while here. 6. Depression. This diagnosis was suspected several months ago during an admission and he was started on Fluoxetine. This has helped his mood, he stated. This has also helped with compliance of medications, but he still has noncompliance with outpatient office visits. Fluoxetine was used while here and a new prescription for a 1-month supply was provided at discharge. 7. Noncompliance to medical management. The social workers, case assistant, clinical providers have all attempted many times to get him into a PCP for outpatient management of his symptoms and diabetes, and he has been resistant, not complying with scheduled appointments. The patient lives with his aunt, is estranged from his mother who lives out of state. Even 2 aunts have tried to assist in getting him to those appointments, but he has excuses and does not show up. This was again reviewed with the patient, by the RN and care provider while here, as to the importance. ALLERGIES: NONE. MEDICATIONS AT THE TIME OF DISCHARGE 1. Fluoxetine 20 mg p.o. daily. 2. NovoLog insulin on a sliding scale. 3. Lantus insulin 20 units subcutaneous every evening. 4. Reglan 10 mg p.o. a.c. and at bedtime. LABORATORIES AND IMAGING: Reviewed and summarized above. CONDITION AT DISCHARGE: Stable. PHYSICAL EXAMINATION VITAL SIGNS: Blood pressure 118/86, pulse 106, afebrile, room air saturation 100%. HEENT: Unremarkable except for dysmorphic facies. NECK: Without JVD or carotid bruits. CHEST: Clear. HEART: Heart sounds normal. ABDOMEN: Soft, nontender. EXTREMITIES: No edema. NEUROLOGIC: Intact. FOLLOWUP: It was strongly advised to choose and continue to follow with a PCP. CODE STATUS: FULL CODE. TIME REQUIRED TO COMPLETE THIS ENTIRE DISCHARGE, CHART REVIEW, PATIENT EDUCATION , PRESCRIPTION ORDERS, DICTATION: 60 minutes. cc: JUAN Nicolas TD: 05/30/2018 18:31 MELISSA
== END 2018-05-30 12:50 | disposition home or self-care (01) | DRG 639 ==
LOC: ED 14:49 → ICU 16:51
PROVIDERS: ADMIT Internal Medicine; ATTEND Internal Medicine
DX: E10.10 Type 1 diabetes mellitus with ketoacidosis without coma (principal); E10.43 Type 1 diabetes mellitus with diabetic autonomic (poly)neuropathy; K31.84 Gastroparesis; E10.49 Type 1 diabetes mellitus with other diabetic neurological complication; N31.9 Neuromuscular dysfunction of bladder, unspecified; T45.0X6A Underdosing of antiallergic and antiemetic drugs, initial encounter; E87.6 Hypokalemia; E83.42 Hypomagnesemia; F32.9 Major depressive disorder, single episode, unspecified; Z91.19 Patient's noncompliance with other medical treatment and regimen; Z79.4 Long term (current) use of insulin
CPT/HCPCS: 36415; 80048; 80053; 82009; 82330; 82803; 82947; 83690; 83735; 84100; 85025; 87150; 93005; 96361; 96374; 96375; 99283; 99284; 99291

== ENCOUNTER 2018-05-31 14:13 | Inpatient (IN) | payer MEDICAID ==
[2018-05-31] MEDS ORDERED: SODIUM CHLORIDE 0.9% 1,000 ML IV ONE ×3 (14:52→15:46)
[2018-05-31 15:00] LABS: VBG PCO2 18.4 mmHg (41-51); VBG PH 7.071 (7.31-7.41); VBG PO2 57.3 mmHg (25-47); VBG TOTAL CO2 5.8 mmol/L (24-29)
[2018-05-31 15:12] LABS: KETONES, SERUM (ACETEST) SMALL (NEGATIVE)
[2018-05-31 15:14] LABS: ALBUMIN 4.4 g/dL (3.2-5.5); ALBUMIN/GLOBULIN RATIO 1.1 (1.0-2.2); ALKALINE PHOSPHATASE 94 IU/L (42-121); ALT ALANINE AMINOTRANSFERASE 20 IU/L (10-60); AST ASPARTATE AMINOTRANSFERASE 20 IU/L (10-42); BILIRUBIN,TOTAL 2.1 mg/dL (0.2-1.0); BUN - BLOOD UREA NITROGEN 27 mg/dL (6-20); CALCIUM 9.9 mg/dL (8.5-10.3); CHLORIDE 100 mmol/L (101-111); CREATININE 1.2 mg/dL (0.6-1.2); GFR - MDRD 77 (>89); LIPASE 20 U/L (22-51); SODIUM 136 mmol/L (135-145); TOTAL PROTEIN 8.4 g/dL (6.7-8.2)
[2018-05-31 15:15] LABS: CARBON DIOXIDE - CO2 6 mmol/L (21-32); GLUCOSE 530 mg/dL (70-100)
--- NOTE | 2018-05-31 15:15 | ED Physician Documentation ---
PD HPI NVD - Stated complaint Stated Complaint: ABD PX/VOMITING - Chief complaint Chief Complaint: Abd Pain - History obtained from History obtained from: Patient - History of Present Illness Timing - onset: Last night Timing - duration: Days Timing - details: Gradual onset, Still present Associated symptoms: Fever, Abdominal pain, Loss of appetite. No: Hematuria Contributing factors: No: Sick contact, Bad food, Recent antibiotics, Diabetes Improved by: No: Vomiting Worsened by: Eating Similar symptoms before: Diagnosis (hyperemesis and also with DKA.) Recently seen: Emergency Dept, Admitted (was just hospitalized for DKA and vomiting and discharged yesterday. He says he did take his insulin.) Review of Systems Constitutional: reports: Myalgias, Fatigue. denies: Fever, Chills Nose: denies: Rhinorrhea / runny nose, Congestion Throat: denies: Sore throat Cardiac: denies: Chest pain / pressure Respiratory: denies: Dyspnea, Cough GI: reports: Abdominal Pain, Nausea, Vomiting. denies: Abdominal Swelling, Diarrhea, Hematemesis, Bloody / black stool : denies: Dysuria, Frequency Skin: denies: Rash Neurologic: reports: Generalized weakness. denies: Focal weakness, Numbness, Near syncope PD PAST MEDICAL HISTORY - Past Medical History Cardiovascular: None Respiratory: None Neuro: Peripheral neuropathy Endocrine/Autoimmune: Type 1 diabetes GI: Other : None HEENT: None Psych: Depression, Anxiety Musculoskeletal: None Derm: None - Past Surgical History Past Surgical History: No - Present Medications Home Medications: Ambulatory Orders Medication Instructions Recorded Confirmed Insulin Aspart [Novolog] 0 - 12 unit SUBQ TIDWM 04/15/15 05/31/18 Insulin Glargine [Lantus Solostar] 40 units SUBQ QPM 04/29/18 05/31/18 Fluoxetine HCl 20 mg PO DAILY #60 capsule 05/30/18 05/31/18 Gabapentin 300 mg PO DAILY 05/31/18 05/31/18 - Allergies Allergies/Adverse Reactions: Allergies Allergy/AdvReac Type Severity Reaction Status Date / Time No Known Drug Allergies Allergy Verified 05/31/18 14:25 - Social History Does the pt smoke?: No Smoking Status: Never smoker Does the pt drink ETOH?: Yes Does the pt have substance abuse?: No - Immunizations Immunizations are current?: Yes - POLST Patient has POLST: No POLST Status: Full Code PD ED PE NORMAL - Vitals Vital signs reviewed: Yes - General General: Alert and oriented X 3, Well developed/nourished, Other (appears in pain and uncomfortable with vomiting and stomach pain. ) - HEENT HEENT: Atraumatic, Pharynx benign. No: Moist mucous membranes - Neck Neck: Supple, no meningeal sign, No adenopathy - Cardiac Cardiac: No: RRR (regular but tachycardic) - Respiratory Respiratory: Clear bilaterally - Abdomen Abdomen: Soft, Non distended, No organomegaly, Other (diffusely tender with some guarding but no percussion tenderness. ) - Male Male : Deferred - Rectal Rectal: Deferred - Back Back: No CVA TTP - Derm Derm: Warm and dry. No: Normal color (pale) - Extremities Extremities: No tenderness to palpate, Normal ROM s pain, No edema - Neuro 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, No motor deficit, Normal speech Eye Opening: Spontaneous Motor: Obeys Commands Verbal: Oriented GCS Score: 15 Results - Vitals Vitals: Vital Signs - 24 hr 05/31/18 05/31/18 05/31/18 14:21 14:56 15:32 Temperature 36.8 C Heart Rate 135 H 130 H 122 H Respiratory 20 18 14 Rate Blood Pressure 75/58 L 77/50 L 91/55 L O2 Saturation 99 100 Oxygen O2 Source Room air - Labs Labs: Laboratory Tests 05/31/18 05/31/18 05/31/18 14:25 14:50 14:50 WBC 7.7 RBC 5.03 Hgb 15.3 Hct 47.8 MCV 94.9 H MCH 30.4 MCHC 32.0 RDW 14.0 Plt Count 357 MPV 8.5 Neut # (Auto) 6.2 Lymph # (Auto) 1.3 L [place] # (Auto) 0.2 Eos # (Auto) 0.0 Baso # (Auto) 0.1 Absolute Nucleated RBC 0.00 Nucleated RBC % 0.0 Manual Slide Review Indicated WBC Morphology NORMAL APPEARANCE Platelet Estimate NORMAL (130-450,000) Platelet Morphology NORMAL APPEARANCE RBC Morph Micro Appear 1+ POLYCHROMASIA VBG pH VBG pCO2 VBG pO2 VBG HCO3 VBG Total CO2 VBG O2 Saturation VBG Base Excess Sodium 136 Potassium 5.0 Chloride 100 L Carbon Dioxide 6 L* Anion Gap 30.0 H BUN 27 H Creatinine 1.2 Estimated GFR (MDRD) 77 L Glucose 530 H* POC Whole Bld Glucose 491 H Glycated Hemoglobin Estim Average Glucose Calcium 9.9 Total Bilirubin 2.1 H AST 20 ALT 20 Alkaline Phosphatase 94 Total Protein 8.4 H Albumin 4.4 Globulin 4.0 Albumin/Globulin Ratio 1.1 Lipase 20 L Serum Ketones SMALL H 05/31/18 05/31/18 05/31/18 14:50 14:50 14:54 WBC RBC Hgb Hct MCV MCH MCHC RDW Plt Count MPV Neut # (Auto) Lymph # (Auto) [place] # (Auto) Eos # (Auto) Baso # (Auto) Absolute Nucleated RBC Nucleated RBC % Manual Slide Review WBC Morphology Platelet Estimate Platelet Morphology RBC Morph Micro Appear VBG pH 7.071 L VBG pCO2 18.4 L VBG pO2 57.3 H VBG HCO3 5.2 L VBG Total CO2 5.8 L VBG O2 Saturation 83.9 H VBG Base Excess -23.0 L Sodium Potassium Chloride Carbon Dioxide Anion Gap BUN Creatinine Estimated GFR (MDRD) Glucose POC Whole Bld Glucose 108 H Glycated Hemoglobin 13.1 H Estim Average Glucose 329 H Calcium Total Bilirubin AST ALT Alkaline Phosphatase Total Protein Albumin Globulin Albumin/Globulin Ratio Lipase Serum Ketones 05/31/18 14:56 WBC RBC Hgb Hct MCV MCH MCHC RDW Plt Count MPV Neut # (Auto) Lymph # (Auto) [place] # (Auto) Eos # (Auto) Baso # (Auto) Absolute Nucleated RBC Nucleated RBC % Manual Slide Review WBC Morphology Platelet Estimate Platelet Morphology RBC Morph Micro Appear VBG pH VBG pCO2 VBG pO2 VBG HCO3 VBG Total CO2 VBG O2 Saturation VBG Base Excess Sodium Potassium Chloride Carbon Dioxide Anion Gap BUN Creatinine Estimated GFR (MDRD) Glucose POC Whole Bld Glucose 466 H Glycated Hemoglobin Estim Average Glucose Calcium Total Bilirubin AST ALT Alkaline Phosphatase Total Protein Albumin Globulin Albumin/Globulin Ratio Lipase Serum Ketones PD MEDICAL DECISION MAKING - ED course Complexity details: reviewed results, re-evaluated patient, considered differential, d/w patient - Sepsis Event Vital Signs: Vital Signs - 24 hr 05/31/18 05/31/18 05/31/18 14:21 14:56 15:32 Temperature 36.8 C Heart Rate 135 H 130 H 122 H Respiratory 20 18 14 Rate Blood Pressure 75/58 L 77/50 L 91/55 L O2 Saturation 99 100 Oxygen O2 Source Room air Departure - Departure Disposition: 66 [facility] DC/Xfer Clinical Impression: DKA (diabetic ketoacidoses) Qualifiers: Diabetes mellitus type: type 1 Diabetes mellitus complication detail: without coma Qualified Code(s): E10.10 - Type 1 diabetes mellitus with ketoacidosis without coma Intractable nausea and vomiting Qualifiers: Vomiting type: unspecified Qualified Code(s): R11.2 - Nausea with vomiting, unspecified Diabetes type 1, uncontrolled Qualifiers: Glycemic state: with hyperglycemia Qualified Code(s): E10.65 - Type 1 diabetes mellitus with hyperglycemia Abdominal pain Qualifiers: Abdominal location: generalized Qualified Code(s): R10.84 - Generalized abdominal pain Condition: Stable Record reviewed to determine appropriate education?: Yes Discharge Date/Time: 05/31/18 16:25
[2018-05-31] MEDS ORDERED: INSULIN REGULAR HUMAN 100 UNIT/1 ML 10 ML MDV IVP STA (15:16)
[2018-05-31] MEDS ORDERED: INSULIN REGULAR HUMAN 100 UNIT in SODIUM CHLORIDE 0.9% 100ML 99 ML IV STA (15:16)
[2018-05-31 15:17] LABS: BASOPHILS # (AUTO) 0.1 10^3/uL (0.0-0.1); BASOPHILS % (AUTO) 0.8 %; EOSINOPHILS % (AUTO) 0.1 %; HGB - HEMOGLOBIN 15.3 g/dL (14.0-18.0); LYMPHOCYTES # (AUTO) 1.3 10^3/uL (1.5-3.5); LYMPHOCYTES % (AUTO) 16.8 %; MEAN CORPUSCULAR HEMOGLOBIN 30.4 pg (27.0-31.0); MEAN CORPUSCULAR VOLUME 94.9 fL (80.0-94.0); MEAN PLATELET VOLUME 8.5 fL (7.4-11.4); MONOCYTES # (AUTO) 0.2 10^3/uL (0.0-1.0); MONOCYTES % (AUTO) 2.5 %; NEUTROPHILS # (AUTO) 6.2 10^3/uL (1.5-6.6); NEUTROPHILS % (AUTO) 79.8 %; PLT - PLATELET COUNT 357 10^3/uL (130-450); RED BLOOD COUNT 5.03 10^6/uL (4.70-6.10); WHITE BLOOD COUNT 7.7 x10^3/uL (4.8-10.8)
[2018-05-31] MEDS ORDERED: INSULIN REGULAR HUMAN 100 UNIT in SODIUM CHLORIDE 0.9% 100ML 99 ML IV ONE (15:29)
[2018-05-31 15:43] LABS: PLATELET ESTIMATE, MANUAL NORMAL (130-450,000) (NORMAL); PLATELET MORPHOLOGY NORMAL APPEARANCE (NORMAL); RBC MORPHOLOGY (MULTIPLE) 1+ POLYCHROMASIA (NORMAL)
[2018-05-31] MEDS ORDERED: ACETAMINOPHEN 1,000 MG/100 ML 100 ML IV STA (15:46)
[2018-05-31] MEDS ORDERED: ONDANSETRON 4 MG/2 ML VIAL IVP STA (15:46)
[2018-05-31] MEDS ORDERED: ONDANSETRON 4 MG/2 ML VIAL IVP PRN (15:46)
[2018-05-31] MEDS ORDERED: SODIUM CHLORIDE FLUSH 0.9% 10 ML SYRINGE IVP PRN (15:46)
[2018-05-31] MEDS ORDERED: ONDANSETRON ODT 4 MG TABLET TL PRN (15:46)
[2018-05-31] MEDS ORDERED: FAMOTIDINE 20 MG/2 ML VIAL IVP STA (15:46)
[2018-05-31] MEDS ORDERED: INSULIN REGULAR HUMAN 100 UNIT in SODIUM CHLORIDE 0.9% 100ML 99 ML IV SCH (15:50)
[2018-05-31 16:47] LABS: HB2 TOTAL 16.2 g/dL; HEMOGLOBIN A1C 1.94 g/dL; HEMOGLOBIN A1C % 13.1 % (4.6-6.2)
[2018-05-31] MEDS: NS W/20 MEQ KCL 1,000 ML IV SCH ×2 (17:00→20:43)
[2018-05-31] MEDS: PANTOPRAZOLE 40 MG VIAL IVP SCH (17:00)
[2018-05-31] MEDS: SODIUM CHLORIDE FLUSH 0.9% 10 ML SYRINGE IVP SCH (17:01)
[2018-05-31 17:35] LABS: MUDS CUTOFF CONCENTRATIONS CUTOFF CONC BELOW:
[2018-05-31 17:41] LABS: BILIRUBIN,URINE NEGATIVE (NEGATIVE); GLUCOSE, URINE (UA) >=1000 mg/dL (NEGATIVE); KETONES,URINE (UA) >=80 mg/dL (NEGATIVE); LEUKOCYTE ESTERASE, URINE NEGATIVE (NEGATIVE); NITRITE,URINE NEGATIVE (NEGATIVE); OCCULT BLOOD,URINE NEGATIVE (NEGATIVE); PROTEIN,URINE NEGATIVE (NEGATIVE); UROBILINOGEN,URINE 0.2 (NORMAL) E.U./dL (NORMAL)
[2018-05-31 17:45] LABS: CLARITY,URINE CLEAR (CLEAR)
[2018-05-31 17:49] LABS: AMPHETAMINE SCREEN,URINE NEGATIVE (NEGATIVE); BENZODIAZEPINES SCREEN, URINE NEGATIVE (NEGATIVE); COCAINE SCREEN URINE NEGATIVE (NEGATIVE); METHADONE SCREEN, URINE NEGATIVE (NEGATIVE); METHAMPHETAMINES SCREEN, URINE NEGATIVE (NEGATIVE); OPIATE SCREEN, URINE NEGATIVE (NEGATIVE); OXYCODONE SCREEN, URINE NEGATIVE (NEGATIVE); PROPOXYPHENE SCREEN, URINE NEGATIVE (NEGATIVE); TRICYCLIC ANTIDEPRESSANT,URINE NEGATIVE (NEGATIVE)
[2018-05-31 17:57] LABS: KETONES, SERUM (ACETEST) LARGE (NEGATIVE)
[2018-05-31 18:05] LABS: BUN - BLOOD UREA NITROGEN 25 mg/dL (6-20); CALCIUM 8.7 mg/dL (8.5-10.3); CHLORIDE 108 mmol/L (101-111); GFR - MDRD 95 (>89); GLUCOSE 382 mg/dL (70-100); MAGNESIUM 2.4 mg/dL (1.7-2.8); SODIUM 138 mmol/L (135-145)
[2018-05-31 18:07] LABS: CARBON DIOXIDE - CO2 < 6 mmol/L (21-32)
[2018-05-31 19:45] LABS: KETONES, SERUM (ACETEST) LARGE (NEGATIVE)
[2018-05-31 19:57] LABS: BUN - BLOOD UREA NITROGEN 21 mg/dL (6-20); CALCIUM 8.3 mg/dL (8.5-10.3); CHLORIDE 111 mmol/L (101-111); CREATININE 0.8 mg/dL (0.6-1.2); GFR - MDRD 123 (>89); GLUCOSE 249 mg/dL (70-100); MAGNESIUM 2.3 mg/dL (1.7-2.8); SODIUM 137 mmol/L (135-145)
[2018-05-31 19:59] LABS: CARBON DIOXIDE - CO2 9 mmol/L (21-32)
[2018-05-31] MEDS: D5.45NS W/20 MEQ KCL 1,000 ML IV SCH (22:31)
[2018-06-01 00:39] LABS: ALBUMIN 3.1 g/dL (3.2-5.5); ALBUMIN/GLOBULIN RATIO 1.1 (1.0-2.2); ALKALINE PHOSPHATASE 67 IU/L (42-121); ALT ALANINE AMINOTRANSFERASE 13 IU/L (10-60); AST ASPARTATE AMINOTRANSFERASE 12 IU/L (10-42); BILIRUBIN,TOTAL 0.9 mg/dL (0.2-1.0); BUN - BLOOD UREA NITROGEN 16 mg/dL (6-20); CALCIUM 8.7 mg/dL (8.5-10.3); CARBON DIOXIDE - CO2 16 mmol/L (21-32); CHLORIDE 115 mmol/L (101-111); CREATININE 0.5 mg/dL (0.6-1.2); GFR - MDRD 212 (>89); GLUCOSE 123 mg/dL (70-100); SODIUM 133 mmol/L (135-145); TOTAL PROTEIN 5.9 g/dL (6.7-8.2)
[2018-06-01] MEDS ORDERED: INSULIN GLARGINE 300 UNIT/3 ML PEN SUBQ SCH (00:47)
[2018-06-01] MEDS ORDERED: INSULIN REGULAR HUMAN 100 UNIT in SODIUM CHLORIDE 0.9% 100ML 99 ML IV SCH (00:47)
[2018-06-01] MEDS: INSULIN GLARGINE 300 UNIT/3 ML PEN SUBQ SCH ×2 (01:12→21:14)
[2018-06-01 02:08] LABS: KETONES, SERUM (ACETEST) SMALL (NEGATIVE)
[2018-06-01 02:10] LABS: GLUCOSE 113 mg/dL (70-100)
[2018-06-01] MEDS: SODIUM CHLORIDE FLUSH 0.9% 10 ML SYRINGE IVP SCH ×5 (05:00→22:32)
[2018-06-01] MEDS: PANTOPRAZOLE 40 MG VIAL IVP SCH (06:09)
[2018-06-01] MEDS: D5.45NS W/20 MEQ KCL 1,000 ML IV SCH ×3 (06:11→22:32)
[2018-06-01 06:21] LABS: BASOPHILS % (AUTO) 0.9 %; EOSINOPHILS % (AUTO) 0.7 %; LYMPHOCYTES # (AUTO) 1.3 10^3/uL (1.5-3.5); LYMPHOCYTES % (AUTO) 29.2 %; MEAN CORPUSCULAR HEMOGLOBIN 30.9 pg (27.0-31.0); MEAN CORPUSCULAR HGB CONC 34.4 g/dL (32.0-36.0); MEAN PLATELET VOLUME 7.3 fL (7.4-11.4); MONOCYTES # (AUTO) 0.3 10^3/uL (0.0-1.0); MONOCYTES % (AUTO) 5.6 %; NEUTROPHILS # (AUTO) 2.9 10^3/uL (1.5-6.6); NEUTROPHILS % (AUTO) 63.6 %; PLT - PLATELET COUNT 264 10^3/uL (130-450); RED BLOOD COUNT 3.89 10^6/uL (4.70-6.10); WHITE BLOOD COUNT 4.5 x10^3/uL (4.8-10.8)
[2018-06-01 06:32] LABS: HB2 TOTAL 12.3 g/dL; HEMOGLOBIN A1C 1.55 g/dL; HEMOGLOBIN A1C % 13.7 % (4.6-6.2)
[2018-06-01] MEDS: INSULIN ASPART 300 UNIT/3 ML PEN SUBQ SCH ×7 (07:57→21:15)
[2018-06-01] MEDS: FLUoxetine 10 MG CAPSULE PO SCH (08:11)
[2018-06-01] MEDS: ACETAMINOPHEN 325 MG TABLET PO PRN (08:58)
--- NOTE | 2018-06-01 09:32 | XRAY Report ---
Reason: abd pain Procedure Date: 06/01/2018 Accession Number: [id number] / [id number] Procedure: XR - Abdomen 1 View X-Ray CPT Code: 52805 FULL RESULT: EXAM: ABDOMEN RADIOGRAPHY EXAM DATE: 06/01/2018 08:49 AM. CLINICAL HISTORY: Abdominal pain. COMPARISON: 04/28/2018. TECHNIQUE: 1 view. FINDINGS: Bowel Gas Pattern: No bowel obstruction. Moderate volume of stool in the colon. No portal venous gas or pneumatosis. Other: No mass effect. No osseous abnormalities. IMPRESSION: 1. No bowel obstruction. 2. Moderate volume of stool in the colon. RADIA
--- NOTE | 2018-06-01 10:09 | HISTORY & PHYSICAL EXAMINATION ---
DATE OF SERVICE: 05/31/2018 Physician: Antoinette Schmidt MD PRIMARY CARE PROVIDER: JUAN Nicolas. ADMITTING PROVIDER: Antoinette Schmidt MD. HISTORY OF PRESENT ILLNESS: The patient is an unfortunate 18-year-old white male who has type 1 diabetes. Due to noncompliance from multiple factors, he has developed complications of neuropathy, neurogenic bladder, diabetic gastroparesis. He has frequent admissions to our hospital for DKA, dehydration , electrolyte imbalance. With a 02/2018 admission this year, he received an EGD that showed reflux esophagitis versus candidal esophagitis. Pathology did not show fungal stain positive, and he was treated as reflux esophagitis temporarily. He also has moderately dilated ureters. He needed a Orellana placed in February. He was just admitted and discharged the day before this admission. He had been on an insulin drip for a couple of days until ketones were completely gone. He was able to keep down a regular meal and had actually asked for a double breakfast. This is unusual for him because the patient is usually not hungry, and vomits so much of the food that he avoids eating. He states that he went home. Went to sleep. I called his aunt, who he lives with, and she stated that he never got up out of bed. He is adamant and says that she never watches him 19/04, and that he did take 20 units of Lantus b.i.d. , but he did not take any of her short-acting insulin, nor did he check his sugars because he did not eat all day long. He now returns with nausea, generalized abdominal pain, elevated sugars, weakness. In the emergency room, he has been evaluated by Dr. Castillo and is found to be in DKA again. PAST MEDICAL HISTORY 1. Type 1 diabetes mellitus, uncontrolled, with complications, on long-term insulin. 2. Diabetic complications of gastroparesis and neurogenic bladder. 3. Noncompliance medical management. 4. Probable adjustment disorder with depression. ALLERGIES: NO KNOWN DRUG ALLERGIES. MEDICATIONS 1. Reglan 10 mg p.o. before meals and at bedtime. 2. Lantus SoloSTAR 20 units b.i.d. 3. NovoLog insulin 1-12 units t.i.d. with meals. 4. Fluoxetine 20 mg a day. FAMILY HISTORY: Mom is healthy as far as he knows. He does not know his father. He has no siblings. No children. SOCIAL HISTORY: Currently he lives with one of his aunts. In an effort to understand his social situation, understand why so noncompliant, I did query him repeatedly to please explain to me what is going on in his life. He is usually a very taciturn, withdrawn adolescent male with masked facies. With my persistent questioning, he actually showed emotion and became angry, and tells me that his aunt is a drug abuser. He lives with her, and she takes all of his SSI money. He desperately wants to go live with his mom. She went to go live in [place], to help another sister take care of her babies. He would like to go live with his aunt and his mom there. He says that they would be welcoming if he could get a bus ticket there. He does have another aunt named Annie who lives here in [facility], but he is adamant he cannot live with her because she has 7 kids, and it is all she can do to take care of those kids financially, without him adding to the burden. So he has ended up living with his aunt, who he really, really dislikes, and again accuses her of being a drug abuser and taking all of his SSI money. He is an intermittent cigarette smoker , intermittent cannabis smoker, and rarely uses alcohol. REVIEW OF SYSTEMS GENERAL: On general review of systems, this gentleman is constantly tired, depressed, withdrawn, wants to sleep all day long. HEENT: Occasional bleeding gums when he brushes his teeth, but no problems with dysphagia. He gets frequent reflux, frequent nausea. No facial asymmetry. No blindness, but he does not remember the last time he ever got an ophthalmology exam. PULMONARY: Denies coughing, wheezing, chest congestion. CARDIOVASCULAR: Denies chest pain, edema, orthopnea, palpitations. GASTROINTESTINAL: Chronic nausea intermittent, chronic intermittent constipation, chronic intermittent generalized abdominal pain with inability to urinate. Stool is not black. No change in the color. GENITOURINARY: Decreased stream, and he just has lost the urge to urinate. He cannot figure out what the cues are in his body because he is always so miserable, and he does know when he needs to pee. He denies dysuria, hematuria , and maybe he has some flank pain, he is not sure. DERMATOLOGIC: No new lesions. No petechiae. No rashes. JOINTS: Mild diffuse joint pain, but nothing that severe, without effusions, trauma. PSYCHIATRIC: Depressed, angry, feels hopeless. Denies suicidal ideation. CENTRAL NERVOUS SYSTEM: Denies memory loss, seizures. Denies focal deficits. PHYSICAL EXAMINATION VITAL SIGNS: In the emergency room, his temperature was 36 and on the floor, he is 36.8 after being transferred to the ICU. Initially triage with a heart rate of 116, and is currently about 102. Blood pressure in the ER was 120/73 and on the floor he is 101/62. Respirations are 17. He is 99% on room air. GENERAL: He is a very pale, thin, withdrawn adolescent male. HEENT: ENT shows poor dentition, gingivitis. Dry oral mucosa that are cracked , lips that are cracked. No facial asymmetry. Pupils reactive. Sclerae nonicteric. NECK: Supple without JVD or adenopathy or goiter. LUNGS: Clear to auscultation and percussion without crackles, rhonchi, or wheezing. HEART: PMI is normally placed, and he has tachycardia without murmurs, rubs, or gallop. ABDOMEN: Has generalized abdominal discomfort, generalized mild distention, hypoactive bowel sounds. No rebound or guarding. No peritoneal findings. No masses palpable. EXTREMITIES: Thin, no clubbing, cyanosis, or edema. No evidence of venous stasis. NEUROLOGIC: He is alert and oriented to person, place, and time. He can follow 2-step commands. He is asking for Dilaudid for pain. Reflexes are intact biceps and knees. Hand research laboratory technician strength is normal. Plantar flexion and dorsiflexion of his feet are normal. Lifting his legs off the bed is at 4+/5. LABORATORY DATA: Venous blood gas is 7.071, venous pCO2 is 18.4, bicarbonate is 5.2, base excess -23. White cell count is 7.7, hemoglobin 15.3, hematocrit 47.8, platelets 357. Sodium is 136, potassium 5, carbon dioxide 6, anion gap 30 , BUN 27, creatinine 1.2. When he was discharged yesterday, his BUN was less than 5 and creatinine was 0.3, GFR 77. Random glucose is 533. Glycosylated hemoglobin of 13.1, average glucose 329, total bilirubin 2.1, total protein 8.4. Urinalysis has glucosuria, ketonuria and is negative for infection. He has a negative tox screen for opiates, barbiturates, tricyclics. Large amount of ketones. His hepatitis panel has been nonreactive on 03/13/2018. ASSESSMENT AND PLAN 1. Diabetic ketoacidosis, type 1 with dehydration, acute kidney injury, and metabolic acidosis. He will be placed in the ICU with insulin protocol with insulin drip. Electrolytes will be monitored closely, and supplemented as needed. Aggressive IV fluid resuscitation will be implemented. We will then transition to his usual Lantus short-acting insulin and then p.o. status. Attestation: The patient will be admitted less than 96 hours. 2. Adjustment disorder with depression, leading to noncompliance. His age and adolescent status probably does not help, with poor insight and at this time, lack of emotional maturity. We will resume his fluoxetine, and talk to his primary care provider. He is only seen her twice. We will also talk to Nursing Home Admissions Director. 3. Neurogenic bladder history. Check ultrasound to make sure he does not need another Orellana. His previous plain film CT in 02/2018 also showed severe constipation with stool in the bowel. We will check KUB for that. 4. Deep venous thrombosis prophylaxis will be ENEIDA castillo. 5. FULL CODE STATUS. TD: 06/01/2018 08:41 MELISSA
--- NOTE | 2018-06-01 16:54 | Ultrasound Report ---
Reason: followup of hydronephrosis Procedure Date: 06/01/2018 Accession Number: [id number] / [id number] Procedure: US - Retroperitoneal CPT Code: FULL RESULT: EXAM: RENAL ULTRASOUND EXAM DATE: 06/01/2018 04:15 PM. CLINICAL HISTORY: Followup of hydronephrosis. COMPARISON: 03/12/2018 TECHNIQUE: Real-time scanning was performed with static images obtained. FINDINGS: Right Kidney: 13.7 x 6.7 x 7.1 cm. Moderate to severe hydronephrosis similar to prior. Left Kidney: 12.2 x 5.8 x 6.7 cm. Moderate hydronephrosis similar to prior. Bladder: Bilateral jets seen. The prevoid bladder volume was 929 cc. The postvoid bladder volume was 354 cc. Other: None. IMPRESSION: 1. Stable hydronephrosis compared with 03/12/2018. 2. Prevoid bladder volume 929 cc. Postvoid residual 354 cc. RADIA
--- NOTE | 2018-06-01 19:42 | PROVIDER PROGRESS NOTE ---
Subjective - Prog Note Date Prog Note Date: 06/01/18 Prog Note Time: 19:41 - Subjective Pt reports feeling: Improved Subjective: He is withdrawn, depressed, and at times just frankly apathetic. In an effort to try to get through to him, assessment of the bedside. Spent over an hour with him. And I explained to him that I am just trying to understand what his life is like and why he is noncompliant and why he keeps on returning with DKA. I need to understand why he does not go to his doctor's offices, has never seen a metallurgical analyst. He is only seen his primary care provider twice and all this time. Initially he is angry, withdrawn. Does not want to speak to me. And then he responds by telling me that he is angry. He is frustrated. He is depressed. There is no value to his life. He is not suicidal but he feels like he is trapped in in a long-term. His mom has moved in [place] to to help take care of her sister's babies. 1 of the babies had heart surgery and the sister still needed to do a job. So his mom moved to help her sister and her children. He stayed behind. He thought it would be okay to live with an aunt. But she is a drug addict, is an opiate abuser. She is the payee on his SSI and he sees no money. Last month his mom asked for him to go to [place] to stay with her. She told her sister to pay for an airline ticket using the SSI money and she never did. Mr. Kearney says that he really cannot go anywhere. Because of his depression he spends all his time sleeping. When I had spoken to his and she describes him as withdrawn. That he sometimes leaves the house for hours to disappear and she does know where he goes. Mrs. Kearney denies that. Laughs bitterly and says that "where my supposed to go". He does not have a car. He does not use mass transit. He cannot walk very far. He is too weak and tired to do so. So he thinks that his aunt is lying. Current Medications - Current Medications Current Medications: Active Medications Acetaminophen (Tylenol) 650 mg PO Q4HR PRN PRN Reason: Pain 1 to 4 Last Admin: 06/01/18 08:58 Dose: 650 mg Fluoxetine HCl (Prozac) 20 mg PO DAILY [facility] Last Admin: 06/01/18 08:11 Dose: 20 mg Potassium Chloride/Dextrose/Sod Cl (D5.45ns W/20 Meq Kcl) 1,000 mls @ 125 mls/ hr IV .Q8H [facility] Last Infusion: 06/01/18 19:00 Dose: 125 mls/hr Insulin Aspart (Novolog) 1 - 5 unit SUBQ 0800,1200,1700,2100 [facility] PRN Reason: Protocol Last Admin: 06/01/18 17:05 Dose: 1 unit Insulin Aspart (Novolog) 5 unit SUBQ TIDWM [facility] PRN Reason: Protocol Last Admin: 06/01/18 17:06 Dose: 5 unit Insulin Glargine (Lantus Solostar) 40 unit SUBQ QPM [facility] Last Admin: 06/01/18 01:12 Dose: 40 unit Ondansetron HCl (Zofran Inj) 4 mg IVP Q6HR PRN PRN Reason: Nausea / Vomiting Ondansetron HCl (Zofran Odt) 4 mg TL Q6HR PRN PRN Reason: Nausea / Vomiting Pantoprazole Sodium (Protonix) 40 mg IVP QDAC [facility] Last Admin: 06/01/18 06:09 Dose: 40 mg Sodium Chloride (Normal Saline Flush 0.9%) 10 ml IVP 0100,0900,1700 [facility] Last Admin: 06/01/18 17:06 Dose: 10 ml Sodium Chloride (Normal Saline Flush 0.9%) 10 ml IVP PRN PRN PRN Reason: NEEDED PER PROVIDER ORDERS Insulin Aspart [Novolog] 0 - 12 unit SUBQ TIDWM 04/15/15 Insulin Glargine [Lantus Solostar] 40 units SUBQ QPM 04/29/18 Gabapentin 300 mg PO DAILY 05/31/18 Objective - Vital Signs/Intake & Output Reviewed Vital Signs: Yes Vital Signs: Vital Signs x48h Temp Pulse Resp BP Pulse Ox 06/01/18 16:00 36.8 C 98 13 119/79 100 06/01/18 15:00 93 15 109/71 99 06/01/18 14:00 97 18 122/69 98 06/01/18 13:00 36.6 C 98 14 97/61 100 06/01/18 12:00 108 H 14 123/86 H 100 Intake & Output: Intake & Output 05/29/18 05/30/18 05/31/18 06/01/18 23:59 23:59 23:59 23:59 Intake Total 2864.140 5064.110 Output Total 1500 3500 Balance 6388.146 3778.110 - Objective General Appearance: positive: Alert, Other (Room is dark, blinds are closed, he is lying comfortably on his back.) Eyes Bilateral: positive: PERRL, EOMI ENT: positive: Pharynx nml Neck: positive: No JVD. negative: Lymphadenopathy (R), Lymphadenopathy (L), Stiff neck, Carotid bruit Respiratory: positive: Chest non-tender. negative: Wheezes, Rales, Rhonchi Cardiovascular: positive: Regular rate & rhythm. negative: Gallop/S4, Friction rub Abdomen: positive: No organomegaly, Nml bowel sounds, No distention, Tenderness (Generalized and mild. He keeps on asking for opiates.), Other (Remember he has a gastroparesis and neurogenic bladder). negative: Guarding, Rebound Skin: positive: Dry, Pallor Extremities: positive: Non-tender Neurologic/Psychiatric: positive: Oriented x3, CN's nml (2-12), Motor nml - Lab Results Fish Bones: 06/01/18 06:05 06/01/18 01:55 Other Labs: Lab Results x24hrs 06/01/18 06/01/18 06/01/18 Range/Units 17:01 13:51 11:56 WBC (4.8-10.8) x10^3/uL RBC (4.70-6.10) 10^6/uL Hgb (14.0-18.0) g/dL Hct (42.0-52.0) % MCV (80.0-94.0) fL MCH (27.0-31.0) pg MCHC (32.0-36.0) g/dL RDW (12.0-15.0) % Plt Count (130-450) 10^3/uL MPV (7.4-11.4) fL Neut # (Auto) (1.5-6.6) 10^3/uL Lymph # (Auto) (1.5-3.5) 10^3/uL Barnwell # (Auto) (0.0-1.0) 10^3/uL Eos # (Auto) (0.0-0.7) 10^3/uL Baso # (Auto) (0.0-0.1) 10^3/uL Absolute Nucleated RBC x10^3/uL Nucleated RBC % /100WBC Sodium (135-145) mmol/L Potassium (3.5-5.0) mmol/L Chloride (101-111) mmol/L Carbon Dioxide (21-32) mmol/L Anion Gap (6-13) BUN (6-20) mg/dL Creatinine (0.6-1.2) mg/dL Estimated GFR (MDRD) (>89) Glucose (70-100) mg/dL POC Whole Bld Glucose 169 H (70 - 100) mg/dL Glycated Hemoglobin (4.6-6.2) % Estim Average Glucose (70-100) Calcium (8.5-10.3) mg/dL Ionized Calcium Magnesium (1.7-2.8) mg/dL Total Bilirubin (0.2-1.0) mg/dL AST (10-42) IU/L ALT (10-60) IU/L Alkaline Phosphatase (42-121) IU/L Troponin I (<0.49) ng/mL Total Protein (6.7-8.2) g/dL Albumin (3.2-5.5) g/dL Globulin (2.1-4.2) g/dL Albumin/Globulin Ratio (1.0-2.2) Serum Ketones SMALL H SMALL H (NEGATIVE) 06/01/18 06/01/18 06/01/18 Range/Units 11:25 10:00 10:00 WBC (4.8-10.8) x10^3/uL RBC (4.70-6.10) 10^6/uL Hgb (14.0-18.0) g/dL Hct (42.0-52.0) % MCV (80.0-94.0) fL MCH (27.0-31.0) pg MCHC (32.0-36.0) g/dL RDW (12.0-15.0) % Plt Count (130-450) 10^3/uL MPV (7.4-11.4) fL Neut # (Auto) (1.5-6.6) 10^3/uL Lymph # (Auto) (1.5-3.5) 10^3/uL Barnwell # (Auto) (0.0-1.0) 10^3/uL Eos # (Auto) (0.0-0.7) 10^3/uL Baso # (Auto) (0.0-0.1) 10^3/uL Absolute Nucleated RBC x10^3/uL Nucleated RBC % /100WBC Sodium (135-145) mmol/L Potassium (3.5-5.0) mmol/L Chloride (101-111) mmol/L Carbon Dioxide (21-32) mmol/L Anion Gap (6-13) BUN (6-20) mg/dL Creatinine (0.6-1.2) mg/dL Estimated GFR (MDRD) (>89) Glucose (70-100) mg/dL POC Whole Bld Glucose 154 H (70 - 100) mg/dL Glycated Hemoglobin (4.6-6.2) % Estim Average Glucose (70-100) Calcium (8.5-10.3) mg/dL Ionized Calcium Magnesium (1.7-2.8) mg/dL Total Bilirubin (0.2-1.0) mg/dL AST (10-42) IU/L ALT (10-60) IU/L Alkaline Phosphatase (42-121) IU/L Troponin I < 0.04 (<0.49) ng/mL Total Protein (6.7-8.2) g/dL Albumin (3.2-5.5) g/dL Globulin (2.1-4.2) g/dL Albumin/Globulin Ratio (1.0-2.2) Serum Ketones SMALL H (NEGATIVE) 06/01/18 06/01/18 06/01/18 Range/Units 07:48 07:47 06:52 WBC (4.8-10.8) x10^3/uL RBC (4.70-6.10) 10^6/uL Hgb (14.0-18.0) g/dL Hct (42.0-52.0) % MCV (80.0-94.0) fL MCH (27.0-31.0) pg MCHC (32.0-36.0) g/dL RDW (12.0-15.0) % Plt Count (130-450) 10^3/uL MPV (7.4-11.4) fL Neut # (Auto) (1.5-6.6) 10^3/uL Lymph # (Auto) (1.5-3.5) 10^3/uL Barnwell # (Auto) (0.0-1.0) 10^3/uL Eos # (Auto) (0.0-0.7) 10^3/uL Baso # (Auto) (0.0-0.1) 10^3/uL Absolute Nucleated RBC x10^3/uL Nucleated RBC % /100WBC Sodium (135-145) mmol/L Potassium (3.5-5.0) mmol/L Chloride (101-111) mmol/L Carbon Dioxide (21-32) mmol/L Anion Gap (6-13) BUN (6-20) mg/dL Creatinine (0.6-1.2) mg/dL Estimated GFR (MDRD) (>89) Glucose (70-100) mg/dL POC Whole Bld Glucose 130 H 80 (70 - 100) mg/dL Glycated Hemoglobin (4.6-6.2) % Estim Average Glucose (70-100) Calcium (8.5-10.3) mg/dL Ionized Calcium Magnesium (1.7-2.8) mg/dL Total Bilirubin (0.2-1.0) mg/dL AST (10-42) IU/L ALT (10-60) IU/L Alkaline Phosphatase (42-121) IU/L Troponin I (<0.49) ng/mL Total Protein (6.7-8.2) g/dL Albumin (3.2-5.5) g/dL Globulin (2.1-4.2) g/dL Albumin/Globulin Ratio (1.0-2.2) Serum Ketones SMALL H (NEGATIVE) 06/01/18 06/01/18 06/01/18 Range/Units 06:05 06:05 06:05 WBC (4.8-10.8) x10^3/uL RBC (4.70-6.10) 10^6/uL Hgb (14.0-18.0) g/dL Hct (42.0-52.0) % MCV (80.0-94.0) fL MCH (27.0-31.0) pg MCHC (32.0-36.0) g/dL RDW (12.0-15.0) % Plt Count (130-450) 10^3/uL MPV (7.4-11.4) fL Neut # (Auto) (1.5-6.6) 10^3/uL Lymph # (Auto) (1.5-3.5) 10^3/uL Barnwell # (Auto) (0.0-1.0) 10^3/uL Eos # (Auto) (0.0-0.7) 10^3/uL Baso # (Auto) (0.0-0.1) 10^3/uL Absolute Nucleated RBC x10^3/uL Nucleated RBC % /100WBC Sodium (135-145) mmol/L Potassium (3.5-5.0) mmol/L Chloride (101-111) mmol/L Carbon Dioxide (21-32) mmol/L Anion Gap (6-13) BUN (6-20) mg/dL Creatinine (0.6-1.2) mg/dL Estimated GFR (MDRD) (>89) Glucose (70-100) mg/dL POC Whole Bld Glucose 86 (70 - 100) mg/dL Glycated Hemoglobin 13.7 H (4.6-6.2) % Estim Average Glucose 346 H (70-100) Calcium (8.5-10.3) mg/dL Ionized Calcium Magnesium (1.7-2.8) mg/dL Total Bilirubin (0.2-1.0) mg/dL AST (10-42) IU/L ALT (10-60) IU/L Alkaline Phosphatase (42-121) IU/L Troponin I (<0.49) ng/mL Total Protein (6.7-8.2) g/dL Albumin (3.2-5.5) g/dL Globulin (2.1-4.2) g/dL Albumin/Globulin Ratio (1.0-2.2) Serum Ketones SMALL H (NEGATIVE) 06/01/18 06/01/18 06/01/18 Range/Units 06:05 05:57 04:52 WBC 4.5 L (4.8-10.8) x10^3/uL RBC 3.89 L (4.70-6.10) 10^6/uL Hgb 12.0 L (14.0-18.0) g/dL Hct 35.0 L (42.0-52.0) % MCV 90.0 (80.0-94.0) fL MCH 30.9 (27.0-31.0) pg MCHC 34.4 (32.0-36.0) g/dL RDW 13.0 (12.0-15.0) % Plt Count 264 (130-450) 10^3/uL MPV 7.3 L (7.4-11.4) fL Neut # (Auto) 2.9 (1.5-6.6) 10^3/uL Lymph # (Auto) 1.3 L (1.5-3.5) 10^3/uL Barnwell # (Auto) 0.3 (0.0-1.0) 10^3/uL Eos # (Auto) 0.0 (0.0-0.7) 10^3/uL Baso # (Auto) 0.0 (0.0-0.1) 10^3/uL Absolute Nucleated RBC 0.00 x10^3/uL Nucleated RBC % 0.1 /100WBC Sodium (135-145) mmol/L Potassium (3.5-5.0) mmol/L Chloride (101-111) mmol/L Carbon Dioxide (21-32) mmol/L Anion Gap (6-13) BUN (6-20) mg/dL Creatinine (0.6-1.2) mg/dL Estimated GFR (MDRD) (>89) Glucose (70-100) mg/dL POC Whole Bld Glucose 87 95 (70 - 100) mg/dL Glycated Hemoglobin (4.6-6.2) % Estim Average Glucose (70-100) Calcium (8.5-10.3) mg/dL Ionized Calcium Magnesium (1.7-2.8) mg/dL Total Bilirubin (0.2-1.0) mg/dL AST (10-42) IU/L ALT (10-60) IU/L Alkaline Phosphatase (42-121) IU/L Troponin I (<0.49) ng/mL Total Protein (6.7-8.2) g/dL Albumin (3.2-5.5) g/dL Globulin (2.1-4.2) g/dL Albumin/Globulin Ratio (1.0-2.2) Serum Ketones (NEGATIVE) 06/01/18 06/01/18 06/01/18 Range/Units 04:00 04:00 03:58 WBC (4.8-10.8) x10^3/uL RBC (4.70-6.10) 10^6/uL Hgb (14.0-18.0) g/dL Hct (42.0-52.0) % MCV (80.0-94.0) fL MCH (27.0-31.0) pg MCHC (32.0-36.0) g/dL RDW (12.0-15.0) % Plt Count (130-450) 10^3/uL MPV (7.4-11.4) fL Neut # (Auto) (1.5-6.6) 10^3/uL Lymph # (Auto) (1.5-3.5) 10^3/uL Barnwell # (Auto) (0.0-1.0) 10^3/uL Eos # (Auto) (0.0-0.7) 10^3/uL Baso # (Auto) (0.0-0.1) 10^3/uL Absolute Nucleated RBC x10^3/uL Nucleated RBC % /100WBC Sodium (135-145) mmol/L Potassium (3.5-5.0) mmol/L Chloride (101-111) mmol/L Carbon Dioxide (21-32) mmol/L Anion Gap (6-13) BUN (6-20) mg/dL Creatinine (0.6-1.2) mg/dL Estimated GFR (MDRD) (>89) Glucose (70-100) mg/dL POC Whole Bld Glucose 95 (70 - 100) mg/dL Glycated Hemoglobin (4.6-6.2) % Estim Average Glucose (70-100) Calcium (8.5-10.3) mg/dL Ionized Calcium Magnesium (1.7-2.8) mg/dL Total Bilirubin (0.2-1.0) mg/dL AST (10-42) IU/L ALT (10-60) IU/L Alkaline Phosphatase (42-121) IU/L Troponin I < 0.04 (<0.49) ng/mL Total Protein (6.7-8.2) g/dL Albumin (3.2-5.5) g/dL Globulin (2.1-4.2) g/dL Albumin/Globulin Ratio (1.0-2.2) Serum Ketones SMALL H (NEGATIVE) 06/01/18 06/01/18 06/01/18 Range/Units 02:59 02:05 01:55 WBC (4.8-10.8) x10^3/uL RBC (4.70-6.10) 10^6/uL Hgb (14.0-18.0) g/dL Hct (42.0-52.0) % MCV (80.0-94.0) fL MCH (27.0-31.0) pg MCHC (32.0-36.0) g/dL RDW (12.0-15.0) % Plt Count (130-450) 10^3/uL MPV (7.4-11.4) fL Neut # (Auto) (1.5-6.6) 10^3/uL Lymph # (Auto) (1.5-3.5) 10^3/uL Barnwell # (Auto) (0.0-1.0) 10^3/uL Eos # (Auto) (0.0-0.7) 10^3/uL Baso # (Auto) (0.0-0.1) 10^3/uL Absolute Nucleated RBC x10^3/uL Nucleated RBC % /100WBC Sodium (135-145) mmol/L Potassium (3.5-5.0) mmol/L Chloride (101-111) mmol/L Carbon Dioxide (21-32) mmol/L Anion Gap (6-13) BUN (6-20) mg/dL Creatinine (0.6-1.2) mg/dL Estimated GFR (MDRD) (>89) Glucose 113 H (70-100) mg/dL POC Whole Bld Glucose 91 100 (70 - 100) mg/dL Glycated Hemoglobin (4.6-6.2) % Estim Average Glucose (70-100) Calcium (8.5-10.3) mg/dL Ionized Calcium Magnesium (1.7-2.8) mg/dL Total Bilirubin (0.2-1.0) mg/dL AST (10-42) IU/L ALT (10-60) IU/L Alkaline Phosphatase (42-121) IU/L Troponin I (<0.49) ng/mL Total Protein (6.7-8.2) g/dL Albumin (3.2-5.5) g/dL Globulin (2.1-4.2) g/dL Albumin/Globulin Ratio (1.0-2.2) Serum Ketones SMALL H (NEGATIVE) 06/01/18 06/01/18 06/01/18 Range/Units 01:20 00:03 00:00 WBC (4.8-10.8) x10^3/uL RBC (4.70-6.10) 10^6/uL Hgb (14.0-18.0) g/dL Hct (42.0-52.0) % MCV (80.0-94.0) fL MCH (27.0-31.0) pg MCHC (32.0-36.0) g/dL RDW (12.0-15.0) % Plt Count (130-450) 10^3/uL MPV (7.4-11.4) fL Neut # (Auto) (1.5-6.6) 10^3/uL Lymph # (Auto) (1.5-3.5) 10^3/uL Barnwell # (Auto) (0.0-1.0) 10^3/uL Eos # (Auto) (0.0-0.7) 10^3/uL Baso # (Auto) (0.0-0.1) 10^3/uL Absolute Nucleated RBC x10^3/uL Nucleated RBC % /100WBC Sodium 133 L (135-145) mmol/L Potassium 3.7 (3.5-5.0) mmol/L Chloride 115 H (101-111) mmol/L Carbon Dioxide 16 L (21-32) mmol/L Anion Gap 2.0 L (6-13) BUN 16 (6-20) mg/dL Creatinine 0.5 L (0.6-1.2) mg/dL Estimated GFR (MDRD) 212 (>89) Glucose 123 H (70-100) mg/dL POC Whole Bld Glucose 102 H 119 H (70 - 100) mg/dL Glycated Hemoglobin (4.6-6.2) % Estim Average Glucose (70-100) Calcium 8.7 (8.5-10.3) mg/dL Ionized Calcium NO Magnesium (1.7-2.8) mg/dL Total Bilirubin 0.9 (0.2-1.0) mg/dL AST 12 (10-42) IU/L ALT 13 (10-60) IU/L Alkaline Phosphatase 67 (42-121) IU/L Troponin I (<0.49) ng/mL Total Protein 5.9 L (6.7-8.2) g/dL Albumin 3.1 L (3.2-5.5) g/dL Globulin 2.8 (2.1-4.2) g/dL Albumin/Globulin Ratio 1.1 (1.0-2.2) Serum Ketones (NEGATIVE) 06/01/18 05/31/18 05/31/18 Range/Units 00:00 22:51 21:51 WBC (4.8-10.8) x10^3/uL RBC (4.70-6.10) 10^6/uL Hgb (14.0-18.0) g/dL Hct (42.0-52.0) % MCV (80.0-94.0) fL MCH (27.0-31.0) pg MCHC (32.0-36.0) g/dL RDW (12.0-15.0) % Plt Count (130-450) 10^3/uL MPV (7.4-11.4) fL Neut # (Auto) (1.5-6.6) 10^3/uL Lymph # (Auto) (1.5-3.5) 10^3/uL [place] # (Auto) (0.0-1.0) 10^3/uL Eos # (Auto) (0.0-0.7) 10^3/uL Baso # (Auto) (0.0-0.1) 10^3/uL Absolute Nucleated RBC x10^3/uL Nucleated RBC % /100WBC Sodium (135-145) mmol/L Potassium (3.5-5.0) mmol/L Chloride (101-111) mmol/L Carbon Dioxide (21-32) mmol/L Anion Gap (6-13) BUN (6-20) mg/dL Creatinine (0.6-1.2) mg/dL Estimated GFR (MDRD) (>89) Glucose (70-100) mg/dL POC Whole Bld Glucose 119 H (70 - 100) mg/dL Glycated Hemoglobin (4.6-6.2) % Estim Average Glucose (70-100) Calcium (8.5-10.3) mg/dL Ionized Calcium Magnesium (1.7-2.8) mg/dL Total Bilirubin (0.2-1.0) mg/dL AST (10-42) IU/L ALT (10-60) IU/L Alkaline Phosphatase (42-121) IU/L Troponin I < 0.04 (<0.49) ng/mL Total Protein (6.7-8.2) g/dL Albumin (3.2-5.5) g/dL Globulin (2.1-4.2) g/dL Albumin/Globulin Ratio (1.0-2.2) Serum Ketones SMALL H (NEGATIVE) 05/31/18 05/31/18 05/31/18 Range/Units 21:51 21:50 20:31 WBC (4.8-10.8) x10^3/uL RBC (4.70-6.10) 10^6/uL Hgb (14.0-18.0) g/dL Hct (42.0-52.0) % MCV (80.0-94.0) fL MCH (27.0-31.0) pg MCHC (32.0-36.0) g/dL RDW (12.0-15.0) % Plt Count (130-450) 10^3/uL MPV (7.4-11.4) fL Neut # (Auto) (1.5-6.6) 10^3/uL Lymph # (Auto) (1.5-3.5) 10^3/uL [place] # (Auto) (0.0-1.0) 10^3/uL Eos # (Auto) (0.0-0.7) 10^3/uL Baso # (Auto) (0.0-0.1) 10^3/uL Absolute Nucleated RBC x10^3/uL Nucleated RBC % /100WBC Sodium (135-145) mmol/L Potassium (3.5-5.0) mmol/L Chloride (101-111) mmol/L Carbon Dioxide (21-32) mmol/L Anion Gap (6-13) BUN (6-20) mg/dL Creatinine (0.6-1.2) mg/dL Estimated GFR (MDRD) (>89) Glucose (70-100) mg/dL POC Whole Bld Glucose 147 H 192 H (70 - 100) mg/dL Glycated Hemoglobin (4.6-6.2) % Estim Average Glucose (70-100) Calcium (8.5-10.3) mg/dL Ionized Calcium Magnesium (1.7-2.8) mg/dL Total Bilirubin (0.2-1.0) mg/dL AST (10-42) IU/L ALT (10-60) IU/L Alkaline Phosphatase (42-121) IU/L Troponin I (<0.49) ng/mL Total Protein (6.7-8.2) g/dL Albumin (3.2-5.5) g/dL Globulin (2.1-4.2) g/dL Albumin/Globulin Ratio (1.0-2.2) Serum Ketones SMALL H (NEGATIVE) 05/31/18 Range/Units 19:30 WBC (4.8-10.8) x10^3/uL RBC (4.70-6.10) 10^6/uL Hgb (14.0-18.0) g/dL Hct (42.0-52.0) % MCV (80.0-94.0) fL MCH (27.0-31.0) pg MCHC (32.0-36.0) g/dL RDW (12.0-15.0) % Plt Count (130-450) 10^3/uL MPV (7.4-11.4) fL Neut # (Auto) (1.5-6.6) 10^3/uL Lymph # (Auto) (1.5-3.5) 10^3/uL [place] # (Auto) (0.0-1.0) 10^3/uL Eos # (Auto) (0.0-0.7) 10^3/uL Baso # (Auto) (0.0-0.1) 10^3/uL Absolute Nucleated RBC x10^3/uL Nucleated RBC % /100WBC Sodium 137 (135-145) mmol/L Potassium 4.2 (3.5-5.0) mmol/L Chloride 111 (101-111) mmol/L Carbon Dioxide 9 L* (21-32) mmol/L Anion Gap 17.0 H (6-13) BUN 21 H (6-20) mg/dL Creatinine 0.8 (0.6-1.2) mg/dL Estimated GFR (MDRD) 123 (>89) Glucose 249 H (70-100) mg/dL POC Whole Bld Glucose (70 - 100) mg/dL Glycated Hemoglobin (4.6-6.2) % Estim Average Glucose (70-100) Calcium 8.3 L (8.5-10.3) mg/dL Ionized Calcium Magnesium 2.3 (1.7-2.8) mg/dL Total Bilirubin (0.2-1.0) mg/dL AST (10-42) IU/L ALT (10-60) IU/L Alkaline Phosphatase (42-121) IU/L Troponin I (<0.49) ng/mL Total Protein (6.7-8.2) g/dL Albumin (3.2-5.5) g/dL Globulin (2.1-4.2) g/dL Albumin/Globulin Ratio (1.0-2.2) Serum Ketones LARGE H (NEGATIVE) ABX Reporting Has patient been on IV antibiotics over the past 48 hours?: No Assessment/Plan - Problem List (1) Type 1 diabetes mellitus with ketoacidosis without coma, with long-term current use of insulin Impression: He presents at less than 24 hours after discharge for DKA. He has been in the ICU overnight with insulin drip. He is now able to come off insulin drip with anion gap closing, and his dehydration, acute kidney injury, and metabolic acidosis resolving. (2) Adjustment disorder with depressed mood Impression: Spent a long time talking to him about what it is that makes him most sad of all. He readily admits that he misses his mom. She now lives in [place]. He is hoping to get back to her and live with her. The woman he lives with, his aunt, is the payee on his SSI and has not bottom his plane ticket to go see his mom. I called his mother, Darling, at [phone]. I spent over 30 minutes on the phone verifying that she would in fact take her son in. She was very clear that she did not want him to come live with her. She wants Thomas to meet her group home with regards to which she feels are his inability to take care of himself. She does not want him laying around all day long and wants him to be busy. Even he was to do a load of laundry, do a little bit of yard work, she wants him up and out. She wants him to follow-up with his physician regularly. She wants him to see a specialist, metallurgical analyst, or perinatal educator. If he can check his sugars regularly, avoid being hospitalized for DKA, and follow through with these up requirements she feels that she would be willing to have him come stay with her or other family members in [place]. But he cannot live with her. I shared all of this with Thomas and he is willing to do all of these things. The ICU nurse is now sat down with him and begun education. The perinatal educator has come from the [facility] and spent an hour with him. This is the most excited I have ever seen Mr. Kearney. (3) Noncompliance Impression: Hopefully improved with the above discussion
[2018-06-02] MEDS: ACETAMINOPHEN 325 MG TABLET PO PRN (00:43)
[2018-06-02] MEDS: PANTOPRAZOLE 40 MG VIAL IVP SCH (06:35)
[2018-06-02] MEDS: D5.45NS W/20 MEQ KCL 1,000 ML IV SCH (06:35)
[2018-06-02 07:52] VITALS: BP 125/91
[2018-06-02] MEDS: INSULIN ASPART 300 UNIT/3 ML PEN SUBQ SCH ×4 (07:52→11:40)
[2018-06-02] MEDS: FLUoxetine 10 MG CAPSULE PO SCH (09:10)
[2018-06-02] MEDS: SODIUM CHLORIDE FLUSH 0.9% 10 ML SYRINGE IVP SCH (09:11)
--- NOTE | 2018-06-02 10:55 | Discharge Plan ---
Discharge Plan Disposition: 01 Home, Self Care Condition: Stable Diet: Diabetic Activity Restrictions: No Restrictions Shower Restrictions: No Driving Restrictions: No Additional Instructions or Follow Up instructions: You were admitted to the hospital because of diabetic ketoacidosis. Once again your sugar had gotten too high and was building up too much acid in your body and you had to come back to the hospital. You had the usual electrolyte disorders, severe dehydration, generalized abdominal pain. Unfortunately you have a neurogenic bladder as well as gastroparesis as a complication of your uncontrolled diabetes and this contributes to your generalized abdominal pain. Your ketosis has now resolved. We have reinstructed you on how to do Lantus and a short acting insulin with a fixed dose nutritional injection as well as sliding scale injections. You will be seeing your primary care provider June 10 with the early childhood educator aide. We also have someone picking you up at your home to take you to your visit if you cannot get anybody to take you. Once you have been doing this for a week or 2, and you are stable, you hope to go to [place]. Your Mom has stated that she is willing to take you in and be your support and have you live near her but not with her. She would like you to use your SSI payment to buy a plane ticket to get there. If you have difficulty getting a plane ticket, I have given you my card. I would like you to contact me so that we can work on making sure you get to [place]. Follow-Up Care: [facility] - Diabetes Ed No Smoking: If you smoke, Please STOP! Call for help. Follow-up with: Ailin Kumar DNP [Primary Care Provider] -
--- NOTE | 2018-06-04 00:47 | DISCHARGE SUMMARY ---
Physician: Antoinette Schmidt MD DATE OF ADMISSION: 05/31/2018 DATE OF DISCHARGE: 06/02/2018 PRIMARY CARE PROVIDER: JUAN Nicolas DISCHARGE DIAGNOSES 1. Diabetic ketoacidosis, type 1. 2. Type 1 diabetes mellitus, uncontrolled, insulin-dependent, with complications. 3. Nausea and vomiting from gastroparesis. 4. Noncompliance. 5. Neurogenic bladder. DISCHARGE MEDICATIONS: 1. Fluoxetine 20 mg capsule daily. 2. Gabapentin 300 mg capsule daily. 3. NovoLog sliding scale 0-12 units before each meal 3 times a day, as well as fixed correctional NovoLog 5 units subcutaneously t.i.d. 4. Lantus 40 units subcutaneously daily. PRINCIPAL PROCEDURES 1. Abdominal x-ray with no bowel obstruction, moderate volume of stool in the bowel. 2. Retroperitoneal ultrasound showing stable hydronephrosis when compared to . Bilateral jets seen. The hydronephrosis is quantified as moderate to severe. HOSPITAL COURSE: The patient is admitted multiple times for DKA because of noncompliance. He was just in the hospital and returns less than 24 hours later. I have spoken to his aunt, whom he lives with, as well as himself. He basically went home, went to sleep. Never really got up out of bed to eat or drink anything. Did manage to take his Lantus 20 units, but that was about it. His abdominal pain started to return. One episode of emesis. He came to the emergency room. He is back in DKA. He has a neurogenic bladder and gastroparesis as complications of his type 1 diabetes mellitus that is not controlled. We spent quite a bit of time trying to understand where his noncompliance came from, and it boiled down to the fact that he just wanted to be with his mom, who lives in [place]. It has been a request on his part for many admissions now. He lives with his aunt, who is the payee on his Social Security Disability, and he does not have access to his money. After many conversations, it has been arranged that he will see the uniformer, follow up with his primary care provider, and start taking control of his glucose with a diary that he will present to these 2 providers. If he can prove to his mom that he can take care of himself for a couple of weeks, she is willing to have him come live near, but not with, her in [place]. As such, the patient is discharged in stable condition. PHYSICAL EXAMINATION VITAL SIGNS: Temperature 36.6, pulse 83, blood pressure 125/91, respirations 17 , 100% on room air. GENERAL: He is a lean, lanky, adolescent white male who is pale, muted affect, but no tachypnea. Able to eat 50% to 70% of his breakfast. LUNGS: Clear. HEART: Regular rate and rhythm. ABDOMEN: Only minimally uncomfortable in the epigastrium with no rebound, guarding, or masses. EXTREMITIES: He is ambulatory without assistance. Greater than 30 minutes was spent coordinating discharge, making sure he keeps his followup appointment with his primary care provider June 10. The uniformer will also be at that visit. I have given him my card, and he is to contact me if there are barriers to his keeping his appointment. I would like to see how he can get to [place] to see his mom. cc: JUAN Nicolas TD: 06/03/2018 21:23 MTDGreg
== END 2018-06-02 12:30 | disposition home or self-care (01) | DRG 391 ==
LOC: ED 14:13 → ICU 15:46
PROVIDERS: ADMIT Specialist; ATTEND Specialist
DX: R11.2 Nausea with vomiting, unspecified (principal); E10.10 Type 1 diabetes mellitus with ketoacidosis without coma; N17.9 Acute kidney failure, unspecified; E86.0 Dehydration; F43.21 Adjustment disorder with depressed mood; E10.43 Type 1 diabetes mellitus with diabetic autonomic (poly)neuropathy; K31.84 Gastroparesis; E11.49 Type 2 diabetes mellitus with other diabetic neurological complication; N31.8 Other neuromuscular dysfunction of bladder; T38.3X6A Underdosing of insulin and oral hypoglycemic [antidiabetic] drugs, initial encounter; F17.210 Nicotine dependence, cigarettes, uncomplicated; Z91.19 Patient's noncompliance with other medical treatment and regimen; Z79.4 Long term (current) use of insulin; Y92.003 Bedroom of unspecified non-institutional (private) residence as the place of occurrence of the external cause; Z72.89 Other problems related to lifestyle
CPT/HCPCS: 36415; 74018; 76770; 80048; 80053; 80306; 81001; 81003; 82009; 82803; 82947; 83036; 83690; 83735; 84484; 85025; 87086; 87150; 93005; 96360; 99283; 99284

== ENCOUNTER 2018-07-04 20:10 | Emergency (ER) | payer MEDICAID ==
[2018-07-04 20:31] LABS: BASOPHILS % (AUTO) 0.8 %; HGB - HEMOGLOBIN 13.6 g/dL (14.0-18.0); LYMPHOCYTES # (AUTO) 1.3 10^3/uL (1.5-3.5); LYMPHOCYTES % (AUTO) 26.3 %; MEAN CORPUSCULAR HEMOGLOBIN 29.5 pg (27.0-31.0); MEAN CORPUSCULAR HGB CONC 33.9 g/dL (32.0-36.0); MEAN PLATELET VOLUME 7.7 fL (7.4-11.4); MONOCYTES # (AUTO) 0.3 10^3/uL (0.0-1.0); MONOCYTES % (AUTO) 5.2 %; NEUTROPHILS # (AUTO) 3.2 10^3/uL (1.5-6.6); NEUTROPHILS % (AUTO) 66.7 %; PLT - PLATELET COUNT 307 10^3/uL (130-450); RED BLOOD COUNT 4.61 10^6/uL (4.70-6.10); RED CELL DISTRIBUTION WIDTH 12.9 % (12.0-15.0); WHITE BLOOD COUNT 4.9 x10^3/uL (4.8-10.8)
[2018-07-04 20:42] LABS: ALBUMIN 4.3 g/dL (3.2-5.5); ALBUMIN/GLOBULIN RATIO 1.1 (1.0-2.2); BILIRUBIN,TOTAL 0.6 mg/dL (0.2-1.0); CALCIUM 9.5 mg/dL (8.5-10.3); CREATININE 0.4 mg/dL (0.6-1.2); TOTAL PROTEIN 8.3 g/dL (6.7-8.2)
[2018-07-04] MEDS ORDERED: SODIUM CHLORIDE 0.9% 1,000 ML IV ONE ×2 (21:04→23:08)
[2018-07-04] MEDS ORDERED: ONDANSETRON 4 MG/2 ML VIAL IVP STA ×2 (21:04→21:43)
[2018-07-04] MEDS ORDERED: ONDANSETRON 4 MG/2 ML VIAL ONE (21:06)
[2018-07-04 21:36] LABS: VBG BASE EXCESS -0.4 mmol/L (-2 - +2); VBG PCO2 33.7 mmHg (41-51); VBG PH 7.451 (7.31-7.41); VBG PO2 33.7 mmHg (25-47)
[2018-07-04] MEDS ORDERED: HYDROmorphone 1 MG/ML CARPUJECT IVP STA (21:43)
--- NOTE | 2018-07-04 21:43 | ED Physician Documentation ---
PD HPI ABD PAIN - Stated complaint Stated Complaint: ABD PX/VOMITING - Chief complaint Chief Complaint: Abd Pain - History obtained from History obtained from: Patient - History of Present Illness Timing - onset: Today Timing - duration: Hours Timing - details: Gradual onset, Still present Quality: Sharp, Pain Location: All over / everywhere Improved by: Vomiting Worsened by: Moving, Position, Palpation Associated symptoms: Nausea, Vomiting Similar symptoms before: Diagnosis (gastroparesis and DKA) Recently seen: Admitted - Additional information Additional information: 18-year-old type I diabetic male with a history of gastroparesis and frequent admissions to the hospital for DKA has developed nausea vomiting and abdominal pain again today. He states that he has been controlling his diabetes much better over the past month and his symptoms started today. Review of Systems Constitutional: denies: Fever, Chills Eyes: denies: Decreased vision Ears: denies: Ear pain Nose: denies: Rhinorrhea / runny nose, Congestion Throat: denies: Sore throat Cardiac: denies: Chest pain / pressure, Palpitations Respiratory: denies: Dyspnea, Cough GI: reports: Abdominal Pain, Nausea, Vomiting. denies: Constipation, Diarrhea : denies: Dysuria, Frequency Skin: denies: Rash Musculoskeletal: denies: Neck pain, Back pain, Extremity pain Neurologic: denies: Generalized weakness, Focal weakness, Numbness PD PAST MEDICAL HISTORY - Past Medical History Cardiovascular: None Respiratory: None Neuro: Peripheral neuropathy Endocrine/Autoimmune: Type 1 diabetes GI: Other : None HEENT: None Psych: Depression, Anxiety Musculoskeletal: None Derm: None - Past Surgical History Past Surgical History: No - Present Medications Home Medications: Ambulatory Orders Medication Instructions Recorded Confirmed Insulin Aspart [Novolog] 0 - 12 unit SUBQ TIDWM 04/15/15 07/04/18 Insulin Glargine [Lantus Solostar] 40 units SUBQ QPM 04/29/18 07/04/18 Fluoxetine HCl 20 mg PO DAILY #60 capsule 05/30/18 07/04/18 Insulin Aspart [NovoLOG] 5 unit SUBQ TIDWM #0 pen 06/02/18 07/04/18 HYDROcod/ACETAM 5/325 [Edgar 5/325] 1 - 2 ea PO Q6H PRN #15 tablet 07/05/18 Levofloxacin [Levaquin] 500 mg PO DAILY #5 tablet 07/05/18 Metoclopramide [Reglan] 10 mg PO Q6H PRN #20 tablet 07/05/18 Ondansetron Odt [Zofran] 4 mg TL Q6H PRN #10 tablet 07/05/18 - Allergies Allergies/Adverse Reactions: Allergies Allergy/AdvReac Type Severity Reaction Status Date / Time No Known Drug Allergies Allergy Verified 07/04/18 20:16 - Social History Does the pt smoke?: No Smoking Status: Never smoker Does the pt drink ETOH?: Yes Does the pt have substance abuse?: No - Immunizations Immunizations are current?: Yes - POLST Patient has POLST: No POLST Status: Full Code PD ED PE NORMAL - Vitals Vital signs reviewed: Yes (tachy and hypertensive ) - General General: Alert and oriented X 3, Well developed/nourished - HEENT HEENT: Atraumatic, PERRL, EOMI, Other (dry mucous membranes ) - Neck Neck: Supple, no meningeal sign, No bony TTP - Cardiac Cardiac: RRR, No murmur - Respiratory Respiratory: No respiratory distress, Clear bilaterally - Abdomen Abdomen: Soft, Other (mild generalized tenderness without garding or rebound. ) - Back Back: No CVA TTP, No spinal TTP - Derm Derm: Normal color, Warm and dry, No rash - Extremities Extremities: No deformity, No edema - Neuro 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, special agent in charge 2-12 intact, No motor deficit, No sensory deficit, Normal speech Eye Opening: Spontaneous Motor: Obeys Commands Verbal: Oriented GCS Score: 15 - Psych Psych: Normal mood, Normal affect Results - Vitals Vitals: Vital Signs - 24 hr 07/04/18 07/04/18 20:13 21:10 Temperature 36.9 C Heart Rate 130 H 120 H Respiratory 17 16 Rate Blood Pressure 130/90 H 126/89 H O2 Saturation 100 100 Oxygen O2 Source Room air - Labs Labs: Laboratory Tests 07/04/18 07/04/18 07/04/18 20:22 20:25 20:25 WBC 4.9 RBC 4.61 L Hgb 13.6 L Hct 40.2 L MCV 87.0 MCH 29.5 MCHC 33.9 RDW 12.9 Plt Count 307 MPV 7.7 Neut # (Auto) 3.2 Lymph # (Auto) 1.3 L Benson # (Auto) 0.3 Eos # (Auto) 0.0 Baso # (Auto) 0.0 Absolute Nucleated RBC 0.01 Nucleated RBC % 0.1 VBG pH VBG pCO2 VBG pO2 VBG HCO3 VBG Total CO2 VBG O2 Saturation VBG Base Excess Sodium 136 Potassium 3.4 L Chloride 99 L Carbon Dioxide 27 Anion Gap 10.0 BUN 14 Creatinine 0.4 L Estimated GFR (MDRD) 274 Glucose 191 H POC Whole Bld Glucose 169 H Calcium 9.5 Total Bilirubin 0.6 AST 19 ALT 26 Alkaline Phosphatase 113 Total Protein 8.3 H Albumin 4.3 Globulin 4.0 Albumin/Globulin Ratio 1.1 Lipase 30 Serum Ketones 07/04/18 07/04/18 21:30 21:30 WBC RBC Hgb Hct MCV MCH MCHC RDW Plt Count MPV Neut # (Auto) Lymph # (Auto) Benson # (Auto) Eos # (Auto) Baso # (Auto) Absolute Nucleated RBC Nucleated RBC % VBG pH 7.451 H VBG pCO2 33.7 L VBG pO2 33.7 VBG HCO3 22.9 L VBG Total CO2 24.0 VBG O2 Saturation 71.5 VBG Base Excess -0.4 Sodium Potassium Chloride Carbon Dioxide Anion Gap BUN Creatinine Estimated GFR (MDRD) Glucose POC Whole Bld Glucose Calcium Total Bilirubin AST ALT Alkaline Phosphatase Total Protein Albumin Globulin Albumin/Globulin Ratio Lipase Serum Ketones NEGATIVE Procedures - Bedside sono Bedside sono by EMP: With use of bedside ultrasound the bladder is imaged and appears to have approximately 200 mils of urine. - IVC sono (time) 2139 Bedside IVC sono: IVC measures (cm) (1.80), IVC collapsed c insp (cm) (1.05), Euvolemia PD MEDICAL DECISION MAKING - ED course Complexity details: reviewed old records, reviewed results, re-evaluated patient, considered differential, d/w patient ED course: 18-year-old brittle type I diabetic with a history of gastroparesis has developed nausea and vomiting again today. He arrives to the emergency department with persistent vomiting and abdominal pain. He is not in DKA today. He is administered third intravenous saline and improves with the use of Dilaudid and Zofran. Evaluation of the patient's urine does appear to be infected and he has had this previously cultures of usually shown contamination he has been treated previously as well. He usually has some Zofran and Reglan to use at home he is out of these medicines. We will provide him with some Reglan and Zofran and treat the urinary tract infection. - Sepsis Event Vital Signs: Vital Signs - 24 hr 07/04/18 07/04/18 20:13 21:10 Temperature 36.9 C Heart Rate 130 H 120 H Respiratory 17 16 Rate Blood Pressure 130/90 H 126/89 H O2 Saturation 100 100 Oxygen O2 Source Room air Departure - Departure Disposition: Home, Self Care Clinical Impression: Diabetic gastroparesis Urinary tract infection Qualifiers: Urinary tract infection type: acute cystitis Hematuria presence: with hematuria Qualified Code(s): N30.01 - Acute cystitis with hematuria Instructions: ED UTI Cystitis Male, ED Diabetic Gastroparesis Follow-Up: Ailin Kumar, DNP [Primary Care Provider] - Prescriptions: HYDROcod/ACETAM 5/325 [Edgar 5/325] 1 - 2 ea PO Q6H PRN #15 tablet PRN Reason: Pain Levofloxacin [Levaquin] 500 mg PO DAILY #5 tablet Metoclopramide [Reglan] 10 mg PO Q6H PRN #20 tablet PRN Reason: vomiting Ondansetron Odt [Zofran] 4 mg TL Q6H PRN #10 tablet PRN Reason: Nausea / Vomiting Discharge Date/Time: 07/05/18 01:30
[2018-07-04] MEDS ORDERED: MAG HYDROX/AL HYDROX/SIMETH 30 ML UDC PO STA (23:08)
[2018-07-04] MEDS ORDERED: LIDOCAINE VISCOUS 2% 15 ML UDC MM STA (23:08)
[2018-07-04 23:57] LABS: BILIRUBIN,URINE NEGATIVE (NEGATIVE); GLUCOSE, URINE (UA) >=1000 mg/dL (NEGATIVE); KETONES,URINE (UA) NEGATIVE (NEGATIVE); LEUKOCYTE ESTERASE, URINE TRACE (NEGATIVE); NITRITE,URINE NEGATIVE (NEGATIVE); OCCULT BLOOD,URINE NEGATIVE (NEGATIVE); PH,URINE 7.5 PH (5.0-7.5); PROTEIN,URINE NEGATIVE (NEGATIVE); UROBILINOGEN,URINE 0.2 (NORMAL) E.U./dL (NORMAL)
[2018-07-05 00:01] LABS: CLARITY,URINE CLEAR (CLEAR)
[2018-07-05] MEDS ORDERED: ONDANSETRON 4 MG/2 ML VIAL IVP STA (00:04)
[2018-07-05] MEDS ORDERED: HYDROmorphone 1 MG/ML CARPUJECT IVP STA (00:04)
[2018-07-05 00:07] LABS: AMORPHOUS SEDIMENT,UR Few /LPF; BACTERIA,URINE Rare /HPF (None Seen); SQUAMOUS EPITHELIAL CELL,UR RARE Squamous (<= Few)
[2018-07-05 00:13] VITALS: BP 106/84
[2018-07-05] MEDS ORDERED: levoFLOXacin 250 MG TABLET PO STA (01:09)
[2018-07-05] MEDS ORDERED: METOCLOPRAMIDE 10 MG TABLET PO STA (01:17)
[2018-07-05] MEDS ORDERED: ONDANSETRON ODT 4 MG Prepack 2 TL PRN (01:18)
== END 2018-07-05 01:30 | disposition home or self-care (01) ==
LOC: ED 20:10
DX: E10.43 Type 1 diabetes mellitus with diabetic autonomic (poly)neuropathy (principal); E10.42 Type 1 diabetes mellitus with diabetic polyneuropathy; K31.84 Gastroparesis; N30.01 Acute cystitis with hematuria
CPT/HCPCS: 36415; 80053; 81001; 82009; 82803; 83690; 85025; 87086; 96361; 96374; 96375; 96376; 99284; A9270; J1170; 81003

== ENCOUNTER 2018-07-06 00:17 | Observation (INO) | payer MEDICAID ==
[2018-07-06] MEDS ORDERED: SODIUM CHLORIDE 0.9% 1,000 ML IV ONE ×3 (00:26→01:39)
[2018-07-06 00:46] LABS: EOSINOPHILS % (AUTO) 0.8 %; HGB - HEMOGLOBIN 13.6 g/dL (14.0-18.0); LYMPHOCYTES % (AUTO) 24.1 %; MEAN CORPUSCULAR HEMOGLOBIN 29.9 pg (27.0-31.0); MEAN CORPUSCULAR VOLUME 88.1 fL (80.0-94.0); MONOCYTES # (AUTO) 0.2 10^3/uL (0.0-1.0); MONOCYTES % (AUTO) 3.9 %; NEUTROPHILS # (AUTO) 2.9 10^3/uL (1.5-6.6); NEUTROPHILS % (AUTO) 70.2 %; PLT - PLATELET COUNT 276 10^3/uL (130-450); RED BLOOD COUNT 4.55 10^6/uL (4.70-6.10); RED CELL DISTRIBUTION WIDTH 12.5 % (12.0-15.0); WHITE BLOOD COUNT 4.1 x10^3/uL (4.8-10.8)
[2018-07-06 00:52] LABS: KETONES, SERUM (ACETEST) NEGATIVE (NEGATIVE)
[2018-07-06 00:58] LABS: ALBUMIN/GLOBULIN RATIO 0.9 (1.0-2.2); ALKALINE PHOSPHATASE 114 IU/L (42-121); ALT ALANINE AMINOTRANSFERASE 25 IU/L (10-60); AST ASPARTATE AMINOTRANSFERASE 23 IU/L (10-42); BILIRUBIN,TOTAL 0.8 mg/dL (0.2-1.0); BUN - BLOOD UREA NITROGEN 16 mg/dL (6-20); CALCIUM 9.5 mg/dL (8.5-10.3); CARBON DIOXIDE - CO2 24 mmol/L (21-32); CHLORIDE 98 mmol/L (101-111); CREATININE 0.7 mg/dL (0.6-1.2); GFR - MDRD 144 (>89); GLUCOSE 394 mg/dL (70-100); LIPASE 31 U/L (22-51); SODIUM 134 mmol/L (135-145); TOTAL PROTEIN 8.3 g/dL (6.7-8.2)
[2018-07-06 01:00] LABS: VBG BASE EXCESS 0.3 mmol/L (-2 - +2); VBG PCO2 30.7 mmHg (41-51); VBG PH 7.489 (7.31-7.41); VBG PO2 30.1 mmHg (25-47); VBG TOTAL CO2 23.8 mmol/L (24-29)
[2018-07-06] MEDS ORDERED: KETOROLAC 30 MG/ML VIAL IVP STA (01:04)
[2018-07-06] MEDS ORDERED: METOCLOPRAMIDE 10 MG/2 ML VIAL IVP STA (01:04)
[2018-07-06] MEDS ORDERED: INSULIN REGULAR HUMAN 100 UNIT/1 ML 10 ML MDV SUBQ STA (01:12)
--- NOTE | 2018-07-06 02:02 | ED Physician Documentation ---
History of Present Illness - Stated complaint Stated Complaint: NVD - Chief complaint Chief Complaint: Abd Pain - History obtained from History obtained from: Patient - History of Present Illness Timing: Today Pain level max: 10 Pain level now: 10 Improved by: insulin Worsened by: eating, drinking - Additonal information Additional information: Patient is 18 year old diabetic male with vomiting and abd pain today. States her last night for same. States symptoms returned tonight. States is taking lantus and sliding scale insulin. No fevers. has cramping abd pain. denies any drug use. Review of Systems Ten Systems: 10 systems reviewed and negative Constitutional: denies: Fever, Chills Ears: denies: Ear pain Nose: denies: Rhinorrhea / runny nose, Congestion Throat: denies: Sore throat Cardiac: denies: Chest pain / pressure Respiratory: denies: Dyspnea, Cough, Wheezing GI: reports: Abdominal Pain, Nausea, Vomiting. denies: Diarrhea, Hematemesis, Bloody / black stool : denies: Dysuria Skin: denies: Rash Musculoskeletal: denies: Neck pain, Back pain Neurologic: denies: Focal weakness, Numbness, Headache PD PAST MEDICAL HISTORY - Past Medical History Cardiovascular: None Respiratory: None Neuro: Peripheral neuropathy Endocrine/Autoimmune: Type 1 diabetes GI: Other : None HEENT: None Psych: Depression, Anxiety Musculoskeletal: None Derm: None - Past Surgical History Past Surgical History: No - Present Medications Home Medications: Ambulatory Orders Medication Instructions Recorded Confirmed Insulin Aspart [Novolog] 0 - 12 unit SUBQ TIDWM 04/15/15 07/06/18 Insulin Glargine [Lantus Solostar] 40 units SUBQ QPM 04/29/18 07/06/18 Fluoxetine HCl 20 mg PO DAILY #60 capsule 05/30/18 07/04/18 Insulin Aspart [NovoLOG] 5 unit SUBQ TIDWM #0 pen 06/02/18 07/06/18 Metoclopramide [Reglan] 10 mg PO Q6H PRN #20 tablet 07/05/18 07/06/18 Ondansetron Odt [Zofran] 4 mg TL Q6H PRN #10 tablet 07/05/18 07/06/18 - Allergies Allergies/Adverse Reactions: Allergies Allergy/AdvReac Type Severity Reaction Status Date / Time No Known Drug Allergies Allergy Verified 07/06/18 00:23 - Social History Does the pt smoke?: No Smoking Status: Never smoker Does the pt drink ETOH?: Yes Does the pt have substance abuse?: No - Immunizations Immunizations are current?: Yes - POLST Patient has POLST: No POLST Status: Full Code PD ED PE NORMAL - Vitals Vital signs reviewed: Yes - General General: Alert and oriented X 3, No acute distress - HEENT HEENT: Moist mucous membranes - Neck Neck: Supple, no meningeal sign - Cardiac Cardiac: RRR, Strong equal pulses - Respiratory Respiratory: No respiratory distress, Clear bilaterally - Abdomen Abdomen: Soft, Non tender, Non distended - Back Back: No CVA TTP, No spinal TTP - Derm Derm: Warm and dry - Extremities Extremities: No edema - Neuro 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 Results - Vitals Vitals: Vital Signs - 24 hr 07/06/18 07/06/18 00:21 01:57 Temperature 36.7 C Heart Rate 115 H 116 H Respiratory 18 16 Rate Blood Pressure 137/103 H 139/104 H O2 Saturation 100 100 Oxygen O2 Source Room air - Labs Labs: Laboratory Tests 07/06/18 07/06/18 07/06/18 00:37 00:40 00:40 WBC 4.1 L RBC 4.55 L Hgb 13.6 L Hct 40.1 L MCV 88.1 MCH 29.9 MCHC 34.0 RDW 12.5 Plt Count 276 MPV 8.0 Neut # (Auto) 2.9 Lymph # (Auto) 1.0 L Coleman # (Auto) 0.2 Eos # (Auto) 0.0 Baso # (Auto) 0.0 Absolute Nucleated RBC 0.00 Nucleated RBC % 0.0 VBG pH VBG pCO2 VBG pO2 VBG HCO3 VBG Total CO2 VBG O2 Saturation VBG Base Excess Sodium 134 L Potassium 3.8 Chloride 98 L Carbon Dioxide 24 Anion Gap 12.0 BUN 16 Creatinine 0.7 Estimated GFR (MDRD) 144 Glucose 394 H POC Whole Bld Glucose 381 H Calcium 9.5 Total Bilirubin 0.8 AST 23 ALT 25 Alkaline Phosphatase 114 Total Protein 8.3 H Albumin 4.0 Globulin 4.3 H Albumin/Globulin Ratio 0.9 L Lipase 31 Serum Ketones NEGATIVE 07/06/18 00:55 WBC RBC Hgb Hct MCV MCH MCHC RDW Plt Count MPV Neut # (Auto) Lymph # (Auto) Coleman # (Auto) Eos # (Auto) Baso # (Auto) Absolute Nucleated RBC Nucleated RBC % VBG pH 7.489 H VBG pCO2 30.7 L VBG pO2 30.1 VBG HCO3 22.8 L VBG Total CO2 23.8 L VBG O2 Saturation 69.4 VBG Base Excess 0.3 Sodium Potassium Chloride Carbon Dioxide Anion Gap BUN Creatinine Estimated GFR (MDRD) Glucose POC Whole Bld Glucose Calcium Total Bilirubin AST ALT Alkaline Phosphatase Total Protein Albumin Globulin Albumin/Globulin Ratio Lipase Serum Ketones PD MEDICAL DECISION MAKING - ED course Complexity details: reviewed old records, reviewed results, re-evaluated patient, considered differential, d/w patient, d/w field service consultant ED course: Patient is a 18-year-old male, well-known diabetic who presents to the emergency department with hyperglycemia, abdominal pain and vomiting. Given Reglan, Zofran, Toradol and GI cocktail. He did feel better but was continuing to have pain, therefore he was then given Haldol. Blood sugar well controlled. IV fluids given. Informed patient that I do not feel that narcotics are warranted for his symptoms at this point Patient has continued to vomit, despite zofran x2, reglan and haloperidol. Will place in OBS. discussed with Dr. Philip, who accepts. This document was made in part using voice recognition software. While efforts are made to proofread this document, sound alike and grammatical errors may occur. - Sepsis Event Vital Signs: Vital Signs - 24 hr 07/06/18 07/06/18 00:21 01:57 Temperature 36.7 C Heart Rate 115 H 116 H Respiratory 18 16 Rate Blood Pressure 137/103 H 139/104 H O2 Saturation 100 100 Oxygen O2 Source Room air Departure - Departure Disposition: ED Place in Observation Clinical Impression: Hyperglycemia Vomiting Qualifiers: Vomiting type: unspecified Vomiting Intractability: intractable Nausea presence: with nausea Qualified Code(s): R11.2 - Nausea with vomiting, unspecified Condition: Stable
[2018-07-06] MEDS ORDERED: LIDOCAINE VISCOUS 2% 15 ML UDC MM STA (02:56)
[2018-07-06] MEDS ORDERED: HYOSCYAMINE SL 0.125 MG TABLET SL STA (02:56)
[2018-07-06] MEDS ORDERED: SUCRALFATE 1 GM/10 ML UDC PO STA (02:56)
[2018-07-06] MEDS ORDERED: ONDANSETRON 4 MG/2 ML VIAL IVP STA ×2 (02:56→04:49)
[2018-07-06] MEDS ORDERED: MAG HYDROX/AL HYDROX/SIMETH 30 ML UDC PO STA (02:56)
[2018-07-06] MEDS ORDERED: HALOPERIDOL 5 MG/ML VIAL IVP STA (03:33)
[2018-07-06] MEDS ORDERED: ONDANSETRON 4 MG/2 ML VIAL IVP PRN (04:50)
[2018-07-06] MEDS ORDERED: PROMETHAZINE 25 MG/1 ML VIAL IM PRN (04:50)
[2018-07-06] MEDS ORDERED: PROCHLORPERAZINE 10 MG/2 ML VIAL IVP PRN (04:50)
--- NOTE | 2018-07-06 04:58 | HISTORY & PHYSICAL EXAMINATION ---
Chief Complaint - Chief Complaint Chief Complaint: Nausea, vomiting and abdominal pain History of Present Illness - Admitted From Admitted From:: Emergency Department - History Obtained From Records Reviewed: Yes History obtained from: Patient Exam Limitations: None - History of Present Illness HPI Comment/Other: Patient is an unfortunate 18-year-old male with a past medical history significant for type 1 diabetes mellitus diagnosed at the age of 3 with multiple hospitalizations for diabetic ketoacidosis, complications of diabetes with gastroparesis and neurogenic bladder, depression and a history of noncompliance with medications who presented to the emergency department with a chief complaint of nausea and vomiting. The patient has had 8 admissions in 2018 and 20 visits to our emergency department in 2018. The patient states that he began feeling nauseated and vomiting about 2 days ago. He states that along with the nausea and vomiting he had diffuse abdominal pain. He states he was unable to keep anything down and came into the emergency department last night. In the emergency department last night the patient was given IV fluids and antiemetics and seemed to feel well enough to return home. He states that this morning his symptoms were not too bad but he still was not able to eat anything. He states that in the evening his symptoms became much worse as he became increasingly nauseated and again began to vomit. He states he continued to have diffuse abdominal pain and could not keep even water down. He did admit to having chills at home but denied any fevers. The patient denied any diarrhea or constipation. He denied any hematemesis or coffee ground emesis. Patient denied any recent sick contacts or eating any unusual foods. The patient does have a history of diabetic gastroparesis and has had multiple hospitalizations for intractable nausea and vomiting. The patient also smokes marijuana occasionally which can also precipitate the symptoms. Patient denies any headaches, blurred vision, runny nose, sore throat, nasal congestion, difficulty swallowing, chest pain, cough, shortness of air, orthopnea, PND, increased lower extremity swelling, urinary urgency, urinary frequency, dysuria, joint swelling, joint pain, back pain, neck stiffness, hair loss, recent unintentional weight loss, changes in his skin, rashes, night sweats or any focal neurologic deficits. On presentation to the emergency department the patient was afebrile and tachycardic with a heart rate of 115. The patient was also hypertensive with a blood pressure of 137/103 he was not in any respiratory distress. The patient was visibly in distress as he was nauseated and having dry heaves. The patient was given several doses of antiemetics, IV fluids, viscous lidocaine and Toradol for pain in the emergency department without any relief of his symptoms. The patient's lab work did show some hyperglycemia but the patient was not in diabetic ketoacidosis. The patient did appear to be dry on examination despite the efforts of the emergency room physician the patient did not improve after several hours in the emergency department receiving multiple antiemetics and fluids. The patient was placed in observation for intractable nausea vomiting and abdominal pain. History - Past Medical History Cardiovascular: reports: None Respiratory: reports: None Neuro: reports: Peripheral neuropathy Endocrine/Autoimmune: reports: Type 1 diabetes GI: reports: Other : reports: None HEENT: reports: None Psych: reports: Depression, Anxiety Musculoskeletal: reports: None Derm: reports: None MRSA Hx?: No - Family & Social History Family History: Mother: Alive and Well, Diabetes, Type 2 (grandmother), Other family: Diabetes, Type 2 Family History Comment/Other: Neg for gallbladder disease and GI tumors Social History Notes: The patient is originally from [place] but has been living on [facility] for the last 3 years with his aunt. The patient also spent some time in [place]. Patient has had multiple hospitalizations for diabetic ketoacidosis within the last 2-3 years. Patient was diagnosed with diabetes at the age of 3. The patient is single and does not have any children. He does not smoke tobacco and rarely drinks alcohol. The patient does state he occasionally smokes marijuana but denies any other illicit drug use. - Substance History Use: Uses substance without health or social issues: Alcohol, Cannabis (pt may have hyperemesis related to cannabis, continues to smoke marijuana) - POLST Patient has POLST: No POLST Status: Full Code Meds/Allgy - Home Medications Home Medications: Ambulatory Orders Medication Instructions Recorded Confirmed Insulin Aspart [Novolog] 0 - 12 unit SUBQ TIDWM 04/15/15 07/06/18 Insulin Glargine [Lantus Solostar] 40 units SUBQ QPM 04/29/18 07/06/18 Fluoxetine HCl 20 mg PO DAILY #60 capsule 05/30/18 07/04/18 Insulin Aspart [NovoLOG] 5 unit SUBQ TIDWM #0 pen 06/02/18 07/06/18 Metoclopramide [Reglan] 10 mg PO Q6H PRN #20 tablet 07/05/18 07/06/18 Ondansetron Odt [Zofran] 4 mg TL Q6H PRN #10 tablet 07/05/18 07/06/18 - Allergies Allergies/Adverse Reactions: Allergies Allergy/AdvReac Type Severity Reaction Status Date / Time No Known Drug Allergies Allergy Verified 07/06/18 00:23 Review of Systems - Other Findings Other Findings: A comprehensive review of systems was performed the pertinent positives and negatives are stated above in the HPI and the remainder of the review of systems is negative. Prior Level of Functionality: Lives with his aunt. He is ambulatory and fully capable of performing all of his activities of daily living independently. Exam - Vital Signs Reviewed Vital Signs: Yes Vital Signs: Vital Signs x48h Temp Pulse Resp BP Pulse Ox 07/06/18 02:49 105 H 18 133/94 H 100 07/06/18 01:57 116 H 16 139/104 H 100 07/06/18 00:21 36.7 C 115 H 18 137/103 H 100 - Physical Exam General Appearance: positive: Mild distress (Patient appears ill and miserable. He has dry heaving while I am taking his history.), Other (The patient is slightly drowsy) Eyes Bilateral: positive: Normal inspection, PERRL, EOMI, No lid inflammation, Conjunctivae nml, No scleral icterus ENT: positive: ENT inspection nml, Pharynx nml, Dry mucous membranes. negative: Purulent nasal drainage, Pharyngeal erythema, Oral lesions Neck: positive: Nml inspection, Thyroid nml, No JVD, Trachea midline. negative: Lymphadenopathy (R), Lymphadenopathy (L) Respiratory: positive: Chest non-tender, No respiratory distress, Breath sounds nml. negative: Wheezes, Rales, Rhonchi Cardiovascular: positive: Regular rate & rhythm, No murmur, No gallop Peripheral Pulses: positive: 2+ Abdomen: positive: No organomegaly, Nml bowel sounds, No distention, Tenderness (Patient is tender all over the abdomen, his abdomen is soft and there is no p eritoneal signs.). negative: Guarding, Rebound, Hepatomegaly Back: positive: Nml inspection. negative: CVA tenderness (R), CVA tenderness (L) Skin: positive: Color nml, No rash, Warm, Dry. negative: Cyanosis, Diaphoresis, Pallor Extremities: positive: Non-tender, Full ROM, Nml appearance, No pedal edema Neurologic/Psychiatric: positive: Oriented x3, CN's nml (2-12), Motor nml, Sensation nml, Mood/affect nml Conclusion/Plan - Problem List (1) Intractable nausea and vomiting Conclusion/Plan: The patient presents with 2 days of intractable nausea and vomiting. Patient did come to the emergency department yesterday but was treated in the emergency department and appeared to be well enough to go home. Patient however continued to have nausea and vomiting once he returned home. He also developed abdominal pain which may have been secondary to all of the vomiting. The patient has had multiple admissions in the past for intractable nausea vomiting and it is thought most likely to be due to diabetic gastroparesis although he has had a gastric emptying study in September 2017 which was normal. The patient has had multiple imaging scans of his abdomen which have never shown any obvious cause for his intractable nausea and vomiting. Given that the patient did not respond to treatment in the emergency department he has been brought in for observation. Plan: IV fluids IV Zofran, IV Compazine, IV Phenergan and IV Reglan scheduled IV Toradol for pain along with Tylenol Continue to strictly controlled diabetes. Qualifiers: Vomiting type: unspecified Qualified Code(s): R11.2 - Nausea with vomiting, unspecified (2) Abdominal pain Conclusion/Plan: Patient is having abdominal pain in the setting of intractable nausea vomiting. It appears the abdominal pain is likely secondary to his intractable nausea and vomiting causing straining on his abdominal muscles. The patient has abdominal pain diffusely and there is no localized pain his abdomen is soft and tender but no peritoneal signs. Given these findings it does not appear as though the patient needs any abdominal imaging. The patient has had multiple abdominal images in the past which have all been negative. Plan: Tylenol and Toradol for pain Avoid narcotics (3) Diabetes type 1, uncontrolled Conclusion/Plan: The patient has a history of uncontrolled type 1 diabetes. The patient's A1c today is 12.8. Patient's blood glucose on presentation was 381. Patient did not have any ketones or an anion gap to suggest diabetic ketoacidosis. The patient has had multiple previous hospitalizations for DKA. The patient was treated in the emergency department with regular insulin which did seem to bring down his blood sugar to 204. Plan: Patient will be placed on his home dose of Lantus and mealtime NovoLog Patient will be placed on sliding scale insulin Patient will have his blood glucose checked before meals at bedtime Patient be placed on a diabetic diet Patient was counseled on need for compliance with medications. Qualifiers: Glycemic state: with hyperglycemia Qualified Code(s): E10.65 - Type 1 diabetes mellitus with hyperglycemia (4) Depression Conclusion/Plan: Patient has a history of depression and is on fluoxetine at home. Patient's mood appears to be stable today and we will continue his home dose of fluoxetine. Qualifiers: Depression Type: unspecified Qualified Code(s): F32.9 - Major depressive disorder, single episode, unspecified (5) Hyponatremia Conclusion/Plan: The patient presents with mild hyponatremia as his sodium is 134. The patient does appear to be dry on examination and likely has hypovolemic hyponatremia. The patient has been nauseated and vomiting for the last several days and has not been keeping anything down. Patient will be given IV fluids and we will continue to monitor his sodium. (6) Hypophosphatemia Conclusion/Plan: The patient's phosphorus was low on presentation at 2.1. This is likely secondary to intractable nausea and vomiting. Patient's phosphorus will be replaced. - Lab Results Lab results reviewed: Yes Fish Bones: 07/06/18 05:20 07/06/18 00:40 Other Lab Results: Laboratory Results WBC 4.1 x10^3/uL (4.8-10.8) L 07/06/18 00:40 RBC 4.55 10^6/uL (4.70-6.10) L 07/06/18 00:40 Hgb 13.6 g/dL (14.0-18.0) L 07/06/18 00:40 Hct 40.1 % (42.0-52.0) L 07/06/18 00:40 MCV 88.1 fL (80.0-94.0) 07/06/18 00:40 MCH 29.9 pg (27.0-31.0) 07/06/18 00:40 MCHC 34.0 g/dL (32.0-36.0) 07/06/18 00:40 RDW 12.5 % (12.0-15.0) 07/06/18 00:40 Plt Count 276 10^3/uL (130-450) 07/06/18 00:40 MPV 8.0 fL (7.4-11.4) 07/06/18 00:40 Neut # (Auto) 2.9 10^3/uL (1.5-6.6) 07/06/18 00:40 Lymph # (Auto) 1.0 10^3/uL (1.5-3.5) L 07/06/18 00:40 Jerauld # (Auto) 0.2 10^3/uL (0.0-1.0) 07/06/18 00:40 Eos # (Auto) 0.0 10^3/uL (0.0-0.7) 07/06/18 00:40 Baso # (Auto) 0.0 10^3/uL (0.0-0.1) 07/06/18 00:40 Absolute Nucleated RBC 0.00 x10^3/uL 07/06/18 00:40 Nucleated RBC % 0.0 /100WBC 07/06/18 00:40 VBG pH 7.489 (7.31-7.41) H 07/06/18 00:55 VBG pCO2 30.7 mmHg (41-51) L 07/06/18 00:55 VBG pO2 30.1 mmHg (25-47) 07/06/18 00:55 VBG HCO3 22.8 mmol/L (23-28) L 07/06/18 00:55 VBG Total CO2 23.8 mmol/L (24-29) L 07/06/18 00:55 VBG O2 Saturation 69.4 % (60-80) 07/06/18 00:55 VBG Base Excess 0.3 mmol/L (-2 - +2) 07/06/18 00:55 Sodium 134 mmol/L (135-145) L 07/06/18 00:40 Potassium 3.8 mmol/L (3.5-5.0) 07/06/18 00:40 Chloride 98 mmol/L (101-111) L 07/06/18 00:40 Carbon Dioxide 24 mmol/L (21-32) 07/06/18 00:40 Anion Gap 12.0 (6-13) 07/06/18 00:40 BUN 16 mg/dL (6-20) 07/06/18 00:40 Creatinine 0.7 mg/dL (0.6-1.2) 07/06/18 00:40 Estimated GFR (MDRD) 144 (>89) 07/06/18 00:40 Glucose 394 mg/dL (70-100) H 07/06/18 00:40 POC Whole Bld Glucose 204 mg/dL (70 - 100) H 07/06/18 02:46 Calcium 9.5 mg/dL (8.5-10.3) 07/06/18 00:40 Total Bilirubin 0.8 mg/dL (0.2-1.0) 07/06/18 00:40 AST 23 IU/L (10-42) 07/06/18 00:40 ALT 25 IU/L (10-60) 07/06/18 00:40 Alkaline Phosphatase 114 IU/L (42-121) 07/06/18 00:40 Total Protein 8.3 g/dL (6.7-8.2) H 07/06/18 00:40 Albumin 4.0 g/dL (3.2-5.5) 07/06/18 00:40 Globulin 4.3 g/dL (2.1-4.2) H 07/06/18 00:40 Albumin/Globulin Ratio 0.9 (1.0-2.2) L 07/06/18 00:40 Lipase 31 U/L (22-51) 07/06/18 00:40 Serum Ketones NEGATIVE (NEGATIVE) 07/06/18 00:40 Core Measures - Anticipated LOS I expect patient to be DC'd or transferred within 96 hours.: Yes - DVT/VTE - Prophylaxis VTE/DVT Prophylaxis med ordered at admit?: Yes
[2018-07-06 05:27] LABS: BASOPHILS % (AUTO) 0.4 %; HGB - HEMOGLOBIN 12.2 g/dL (14.0-18.0); LYMPHOCYTES # (AUTO) 0.5 10^3/uL (1.5-3.5); LYMPHOCYTES % (AUTO) 11.7 %; MEAN CORPUSCULAR HEMOGLOBIN 30.8 pg (27.0-31.0); MEAN CORPUSCULAR HGB CONC 35.4 g/dL (32.0-36.0); MEAN PLATELET VOLUME 7.6 fL (7.4-11.4); MONOCYTES # (AUTO) 0.1 10^3/uL (0.0-1.0); MONOCYTES % (AUTO) 1.9 %; NEUTROPHILS # (AUTO) 3.6 10^3/uL (1.5-6.6); PLT - PLATELET COUNT 239 10^3/uL (130-450); RED BLOOD COUNT 3.95 10^6/uL (4.70-6.10); RED CELL DISTRIBUTION WIDTH 12.8 % (12.0-15.0); WHITE BLOOD COUNT 4.2 x10^3/uL (4.8-10.8)
[2018-07-06 05:39] LABS: MAGNESIUM 2.1 mg/dL (1.7-2.8); PHOSPHORUS 2.1 mg/dL (2.5-4.6)
[2018-07-06 05:41] LABS: HEMOGLOBIN A1C 1.51 g/dL; HEMOGLOBIN A1C % 12.8 % (4.6-6.2)
[2018-07-06] MEDS ORDERED: METOCLOPRAMIDE 10 MG/2 ML VIAL IVP SCH (06:00)
[2018-07-06] MEDS ORDERED: POTASSIUM PHOSPHATE 15 MMOL in SODIUM CHLORIDE 0.9% 250 ML IV ONE (06:07)
[2018-07-06] MEDS: SODIUM CHLORIDE 0.9% 1,000 ML IV SCH ×3 (06:38→21:56)
[2018-07-06] MEDS: SODIUM CHLORIDE FLUSH 0.9% 10 ML SYRINGE IVP PRN ×2 (06:38→21:13)
[2018-07-06] MEDS: ACETAMINOPHEN 325 MG TABLET PO PRN ×3 (06:49→21:01)
[2018-07-06] MEDS: KETOROLAC 30 MG/ML VIAL IVP PRN ×2 (07:31→21:13)
[2018-07-06] MEDS: INSULIN ASPART 300 UNIT/3 ML PEN SUBQ SCH ×7 (07:41→21:05)
[2018-07-06] MEDS ORDERED: METOCLOPRAMIDE 10 MG/2 ML VIAL IVP PRN (08:08)
[2018-07-06] MEDS: FLUoxetine 10 MG CAPSULE PO SCH (08:10)
[2018-07-06] MEDS: FAMOTIDINE 20 MG TABLET PO SCH ×2 (08:10→21:02)
[2018-07-06] MEDS: POLYETHYLENE GLYCOL 3350 17 GM PACKET PO SCH (08:15)
[2018-07-06] MEDS: SODIUM CHLORIDE FLUSH 0.9% 10 ML SYRINGE IVP SCH ×2 (08:15→17:11)
[2018-07-06] MEDS: ENOXAPARIN 40 MG/0.4 ML SYRINGE SUBQ SCH (08:16)
[2018-07-06] MEDS: METOCLOPRAMIDE 10 MG TABLET PO SCH ×3 (10:29→21:55)
[2018-07-06 16:47] LABS: BILIRUBIN,URINE NEGATIVE (NEGATIVE); GLUCOSE, URINE (UA) 500 mg/dL (NEGATIVE); KETONES,URINE (UA) 40 mg/dL (NEGATIVE); LEUKOCYTE ESTERASE, URINE TRACE (NEGATIVE); NITRITE,URINE NEGATIVE (NEGATIVE); OCCULT BLOOD,URINE NEGATIVE (NEGATIVE); PH,URINE 6.5 PH (5.0-7.5); PROTEIN,URINE NEGATIVE (NEGATIVE); UROBILINOGEN,URINE 0.2 (NORMAL) E.U./dL (NORMAL)
[2018-07-06 16:48] LABS: CLARITY,URINE CLEAR (CLEAR)
[2018-07-06 16:56] LABS: BACTERIA,URINE None Seen /HPF (None Seen); MUCUS,URINE Moderate Strands; RBC,URINE None Seen /HPF (0-5); SQUAMOUS EPITHELIAL CELL,UR NONE SEEN (<= Few)
[2018-07-06] MEDS: INSULIN GLARGINE 300 UNIT/3 ML PEN SUBQ SCH (21:05)
[2018-07-06] MEDS ORDERED: LIDOCAINE VISCOUS 2% 15 ML UDC MM PRN (22:27)
[2018-07-06] MEDS ORDERED: MAG HYDROX/AL HYDROX/SIMETH 30 ML UDC PO PRN (22:27)
[2018-07-07] MEDS: SODIUM CHLORIDE FLUSH 0.9% 10 ML SYRINGE IVP SCH ×2 (00:47→08:05)
[2018-07-07] MEDS: METOCLOPRAMIDE 10 MG TABLET PO SCH ×4 (04:02→20:56)
[2018-07-07 05:09] LABS: BASOPHILS % (AUTO) 0.7 %; EOSINOPHILS % (AUTO) 0.8 %; HGB - HEMOGLOBIN 11.9 g/dL (14.0-18.0); LYMPHOCYTES # (AUTO) 2.2 10^3/uL (1.5-3.5); LYMPHOCYTES % (AUTO) 40.1 %; MEAN CORPUSCULAR HEMOGLOBIN 29.7 pg (27.0-31.0); MEAN CORPUSCULAR HGB CONC 33.4 g/dL (32.0-36.0); MEAN PLATELET VOLUME 7.9 fL (7.4-11.4); MONOCYTES # (AUTO) 0.4 10^3/uL (0.0-1.0); MONOCYTES % (AUTO) 8.1 %; NEUTROPHILS # (AUTO) 2.8 10^3/uL (1.5-6.6); NEUTROPHILS % (AUTO) 50.3 %; PLT - PLATELET COUNT 239 10^3/uL (130-450); RED BLOOD COUNT 4.02 10^6/uL (4.70-6.10); RED CELL DISTRIBUTION WIDTH 12.7 % (12.0-15.0); WHITE BLOOD COUNT 5.5 x10^3/uL (4.8-10.8)
[2018-07-07 05:41] LABS: ALBUMIN/GLOBULIN RATIO 1.1 (1.0-2.2); ALKALINE PHOSPHATASE 83 IU/L (42-121); ALT ALANINE AMINOTRANSFERASE 17 IU/L (10-60); AST ASPARTATE AMINOTRANSFERASE 17 IU/L (10-42); BILIRUBIN,TOTAL 0.6 mg/dL (0.2-1.0); BUN - BLOOD UREA NITROGEN 11 mg/dL (6-20); CALCIUM 8.2 mg/dL (8.5-10.3); CARBON DIOXIDE - CO2 20 mmol/L (21-32); CHLORIDE 109 mmol/L (101-111); CREATININE 0.4 mg/dL (0.6-1.2); GFR - MDRD 274 (>89); GLUCOSE 96 mg/dL (70-100); MAGNESIUM 2.1 mg/dL (1.7-2.8); PHOSPHORUS 2.7 mg/dL (2.5-4.6); SODIUM 136 mmol/L (135-145); TOTAL PROTEIN 5.8 g/dL (6.7-8.2)
[2018-07-07 06:04] LABS: VBG PH 7.342 (7.31-7.41)
[2018-07-07] MEDS: SODIUM CHLORIDE 0.9% 1,000 ML IV SCH (06:25)
[2018-07-07] MEDS: POTASSIUM CHLOR 10 MEQ/100 ML 10 MEQ/100 ML BAG IV SCH ×4 (06:25→10:27)
[2018-07-07] MEDS: KETOROLAC 30 MG/ML VIAL IVP PRN (07:59)
[2018-07-07] MEDS: INSULIN ASPART 300 UNIT/3 ML PEN SUBQ SCH ×7 (08:01→20:57)
[2018-07-07] MEDS: FAMOTIDINE 20 MG TABLET PO SCH ×2 (08:03→20:56)
[2018-07-07] MEDS: FLUoxetine 10 MG CAPSULE PO SCH (08:03)
[2018-07-07] MEDS: POLYETHYLENE GLYCOL 3350 17 GM PACKET PO SCH (08:04)
[2018-07-07] MEDS: ENOXAPARIN 40 MG/0.4 ML SYRINGE SUBQ SCH (08:04)
--- NOTE | 2018-07-07 09:15 | Discharge Plan ---
Discharge Plan Disposition: 01 Home, Self Care Condition: Good Prescriptions: Fluoxetine HCl [Prozac] 40 mg PO DAILY #30 capsule Gabapentin 100 mg PO TID #90 capsule Gabapentin 300 mg PO DAILY PM #30 capsule Insulin Aspart [NovoLOG] 5 unit SUBQ TIDWM #3 pen Insulin Glargine [Lantus Solostar] 35 unit SUBQ DAILY PM #1 pen Pen Needle, Diabetic [Insulin Pen Needle] 1 each MC QID #150 dis.needle Diet: Diabetic Activity Restrictions: No Restrictions Shower Restrictions: No Weight Bearing: Full Weight Instruction Topics: Gabapentin capsules or tablets Additional Instructions or Follow Up instructions: You were admitted for nausea and vomiting. You are now tolerating meals and you should continue your Reglan every 6 hours, which I have sent to the pharmacy. Your overall mental health seems improved since starting the Prozac, and since you were on the very minimal dose, I have sent a new prescription for an increased dose. Since you were having abdominal pain, so you were started on gabapentin, and a new prescription has been sent too the pharmacy. This medication can be sedating, so you are on a very low dose, but if you are too sleepy all day, then cut back to just 1-2 times per day. I have also added a dose for night time. Please see your tube lancer as scheduled. I have sent more Novolog, Lantus, and pen needles to the pharmacy as you requested that you may be getting low. Please take only 35 units of Lantus nightly, since this morning your were found to be very low with a blood sugar of 43. Please see your PCP within one week. Follow-Up Care: [facility] - Diabetes Ed No Smoking: If you smoke, Please STOP! Call for help. Follow-up with: Ailin Kumar DNP [Primary Care Provider] -
--- NOTE | 2018-07-07 09:30 | DISCHARGE SUMMARY ---
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 Abdominal pain (R10.9) improved, continue on Reglan and gabapentin at home. Diabetes type 1, uncontrolled (E10.65) continue as per extension educator. Reduce nightly Lantus to 35 units due to low AM blood sugar of 43. Depression (F32.9) stable, on Prozac, dose was doubled for a more therapeutic dose. Hyponatremia (E87.1) resolved. Hypophosphatemia (E83.39) resolved. Non compliance with medical treatment (Z91.19) chronic, mild improvement since starting Prozac. - HPI History of Present Illness: HPI per Dr. Philip: Patient is an unfortunate 18-year-old male with a past medical history significant for type 1 diabetes mellitus diagnosed at the age of 3 with multiple hospitalizations for diabetic ketoacidosis, complications of diabetes with gastroparesis and neurogenic bladder, depression and a history of noncompliance with medications who presented to the emergency department with a chief complaint of nausea and vomiting. The patient has had 8 admissions in 2018 and 20 visits to our emergency department in 2018. The patient states that he began feeling nauseated and vomiting about 2 days ago. He states that along with the nausea and vomiting he had diffuse abdominal pain. He states he was unable to keep anything down and came into the emergency department last night. In the emergency department last night the patient was given IV fluids and antiemetics and seemed to feel well enough to return home. He states that this morning his symptoms were not too bad but he still was not able to eat anything. He states that in the evening his symptoms became much worse as he became increasingly nauseated and again began to vomit. He states he continued to have diffuse abdominal pain and could not keep even water down. He did admit to having chills at home but denied any fevers. The patient denied any diarrhea or constipation. He denied any hematemesis or coffee ground emesis. Patient denied any recent sick contacts or eating any unusual foods. The patient does have a history of diabetic gastroparesis and has had multiple hospitalizations for intractable nausea and vomiting. The patient also smokes marijuana occasionally which can also precipitate the symptoms. Patient denies any headaches, blurred vision, runny nose, sore throat, nasal congestion, difficulty swallowing, chest pain, cough, shortness of air, orthopnea, PND, increased lower extremity swelling, urinary urgency, urinary frequency, dysuria, joint swelling, joint pain, back pain, neck stiffness, hair loss, recent unintentional weight loss, changes in his skin, rashes, night sweats or any focal neurologic deficits. On presentation to the emergency department the patient was afebrile and tachycardic with a heart rate of 115. The patient was also hypertensive with a blood pressure of 137/103 he was not in any respiratory distress. The patient was visibly in distress as he was nauseated and having dry heaves. The patient was given several doses of antiemetics, IV fluids, viscous lidocaine and Toradol for pain in the emergency department without any relief of his symptoms. The patient's lab work did show some hyperglycemia but the patient was not in diabetic ketoacidosis. The patient did appear to be dry on examination despite the efforts of the emergency room physician the patient did not improve after several hours in the emergency department receiving multiple antiemetics and fluids. The patient was placed in observation for intractable nausea vomiting and abdominal pain. - HOSPITAL COURSE Hospital Course: (1) Intractable nausea and vomiting The patient presents with 2 days of intractable nausea and vomiting. Patient did come to the emergency department yesterday but was treated in the emergency department and appeared to be well enough to go home. Patient however continued to have nausea and vomiting once he returned home. He also developed abdominal pain which may have been secondary to all of the vomiting. The patient has had multiple admissions in the past for intractable nausea vomiting and it is thought most likely to be due to diabetic gastroparesis although he has had a gastric emptying study in September 2017 which was normal. The patient has had multiple imaging scans of his abdomen which have never shown any obvious cause for his intractable nausea and vomiting. Given that the patient did not respond to treatment in the emergency department he has been brought in for observation. The patient was given continuous IV fluids, IV Zofran, IV Compazine, IV Phenergan and IV Reglan as needed with scheduled PO Reglan Q6H. For pain he was restricted to no use of narcotics, and provided with IV Toradol for pain along with Tylenol. His diabetes was controlled with frequent blood sugar checks and insulin. He was consuming his food without uncontrolled nausea or vomiting. (2) Abdominal pain Patient is having abdominal pain in the setting of intractable nausea vomiting. It appears the abdominal pain is likely secondary to his intractable nausea and vomiting causing straining on his abdominal muscles. The patient has abdominal pain diffusely and there is no localized pain his abdomen is soft and tender but no peritoneal signs. Given these findings it does not appear as though the patient needs any abdominal imaging. The patient has had multiple abdominal images in the past which have all been negative. For pain he was restricted to no use of narcotics, and provided with IV Toradol for pain along with Tylenol, which is also followed by our ED physicians. Since the patient had an extended hospital stay due to ongoing abdominal pain with nausea/vomiting, he was started on gabapentin 100mg PO TID. He had improvement during his stay, so a prescription was sent to his pharmacy for continued use at home. (3) Diabetes type 1, uncontrolled The patient has a history of uncontrolled type 1 diabetes. The patient's A1c t edgar is 12.8. Patient's blood glucose on presentation was 381. Patient did not have any ketones or an anion gap to suggest diabetic ketoacidosis. The patient has had multiple previous hospitalizations for DKA. The patient was treated in the emergency department with regular insulin which did seem to bring down his blood sugar to 204. The patient was continued on his home dose of Lantus and me altime NovoLog, [facility], blood glucose checks before meals and at bedtime, carb controlled diet. His out patient diabetic education visited him and he was counseled to continue to orange picker his Lantus from the pharmacy. On the morning of discharge, the patient had a low early AM sugar of 43, so he was advised to reduce his nightly PM lantus to 35 units. (4) Depression-Major depressive disorder Patient has a history of depression and is on fluoxetine at home. Patient's mood appears to be stable and he was continued on his home dose of fluoxetine. (5) Hyponatremia The patient presented with mild hyponatremia as his sodium is 134. The patient did appear dry on examination and likely has hypovolemic hyponatremia. The patient has been nauseated and vomiting for the last several days and has not been keeping anything down. Patient treated with IV fluids and his sodium prior to discharge was 136. This condition is resolved upon discharge. (6) Hypophosphatemia The patient's phosphorus was low on presentation at 2.1, that improved to 2.7 prior to discharge. This is likely secondary to intractable nausea and vomiting. The patient was given potassium phosphate during his stay and this condition is considered to be resolved. Disposition: The patient was medically stable at the time of discharge and he has been able to consume his meals without feeling nauseous. His electrolyte abnormalities have been resolved. He is to continue frequent contact with the diabetic education and his PCP after discharge. - ALLERGIES Allergies/Adverse Reactions: Allergies Allergy/AdvReac Type Severity Reaction Status Date / Time No Known Drug Allergies Allergy Verified 07/06/18 00:23 - MEDICATIONS Home Medications: Ambulatory Orders Medication Instructions Recorded Confirmed Ondansetron Odt [Zofran Odt] 4 mg TL Q6H PRN #10 tablet 07/05/18 07/06/18 Fluoxetine HCl [Prozac] 40 mg PO DAILY #30 capsule 07/07/18 Insulin Aspart [NovoLOG] 5 unit SUBQ TIDWM #3 pen 07/07/18 Metoclopramide [Reglan] 10 mg PO Q6H #120 tablet 07/07/18 07/06/18 Gabapentin 100 mg PO TID #90 capsule 07/08/18 Gabapentin 300 mg PO DAILY PM #30 capsule 07/08/18 Insulin Glargine [Lantus Solostar] 35 unit SUBQ DAILY PM #1 pen 07/08/18 Pen Needle, Diabetic [Insulin Pen 1 each MC QID #150 dis.[email or web address] 07/08/18 Needle] - PHYSICAL EXAM AT DISCHARGE General Appearance: positive: No acute distress, Alert Eyes Bilateral: positive: Normal inspection, PERRL ENT: positive: ENT inspection nml, Pharynx nml, No signs of dehydration Neck: positive: Thyroid nml, No JVD Respiratory: positive: Chest non-tender, No respiratory distress, Breath sounds nml Cardiovascular: positive: Regular rate & rhythm, No gallop Peripheral Pulses: positive: 2+ Abdomen: positive: Nml bowel sounds, Guarding Back: positive: Nml inspection Skin: positive: No rash, Warm, Dry Extremities: positive: Non-tender, Full ROM, Nml appearance, No pedal edema Neurologic/Psychiatric: positive: Oriented x3, CN's nml (2-12), Motor nml, Sensation nml, Depressed mood/affect Reflexes: Bicep (R): 3+, Bicep (L): 3+ - LABS Result Diagrams: 07/08/18 05:33 07/08/18 05:33 - FOLLOW UP Follow Up: Disposition: Home, Self Care Condition: Good Prescriptions: Fluoxetine HCl [Prozac] 40 mg PO DAILY #30 capsule Gabapentin 100 mg PO TID #90 capsule Gabapentin 300 mg PO DAILY PM #30 capsule Insulin Aspart [NovoLOG] 5 unit SUBQ TIDWM #3 pen Insulin Glargine [Lantus Solostar] 35 unit SUBQ DAILY PM #1 pen Pen Needle, Diabetic [Insulin Pen Needle] 1 each MC QID #150 dis.[email or web address] Diet: Diabetic Activity Restrictions: No Restrictions Shower Restrictions: No Weight Bearing: Full Weight Instruction Topics: Gabapentin capsules or tablets Additional Instructions or Follow Up instructions: You were admitted for nausea and vomiting. You are now tolerating meals and you should continue your Reglan every 6 hours, which I have sent to the pharmacy. Your overall mental health seems improved since starting the Prozac, and since you were on the very minimal dose, I have sent a new prescription for an increased dose. Since you were having abdominal pain, so you were started on gabapentin, and a new prescription has been sent too the pharmacy. This medication can be sedating, so you are on a very low dose, but if you are too sleepy all day, then cut back to just 1-2 times per day. I have also added a dose for night time. Please see your senior health educator as scheduled. I have sent more Novolog, Lantus, and pen needles to the pharmacy as you requested that you may be getting low. Please take only 35 units of Lantus nightly, since this morning your were found to be very low with a blood sugar of 43. Please see your PCP within one week. - TIME SPENT Time Spent in Discharge (Minutes): 50
[2018-07-07] MEDS: ACETAMINOPHEN 325 MG TABLET PO PRN (11:21)
[2018-07-07] MEDS ORDERED: GI COCKTAIL 120 ML BOTTLE PO ONE (11:32)
[2018-07-07] MEDS ORDERED: KETOROLAC 15 MG/ML VIAL IM SCH (12:33)
[2018-07-07] MEDS ORDERED: FLUoxetine 10 MG CAPSULE PO SCH (15:54)
[2018-07-07] MEDS ORDERED: HYOSCYAMINE SL 0.125 MG TABLET SL PRN (15:57)
[2018-07-07] MEDS ORDERED: ONDANSETRON ODT 4 MG TABLET TL PRN (15:57)
[2018-07-07] MEDS: GABAPENTIN 100 MG CAPSULE PO SCH ×2 (16:10→20:56)
--- NOTE | 2018-07-07 19:05 | PROVIDER PROGRESS NOTE ---
Subjective - Prog Note Date Prog Note Date: 07/07/18 Prog Note Time: 13:00 - Subjective Pt reports feeling: No change Subjective: Thomas complained of uncontrolled nausea and vomiting that started just before lunch. He denies chest pain, rashes, shortness of breath, or dizziness. Current Medications - Current Medications Current Medications: Active Medications Acetaminophen (Tylenol) 650 mg PO Q4HR PRN PRN Reason: Pain 1 to 4 Last Admin: 07/07/18 11:21 Dose: 650 mg Al Hydroxide/Mg Hydroxide (Mylanta Plus) 30 ml PO Q4HR PRN PRN Reason: INDIGESTION Enoxaparin Sodium (Lovenox) 40 mg SUBQ DAILY [facility] Last Admin: 07/07/18 08:04 Dose: 40 mg Famotidine (Pepcid) 20 mg PO BID [facility] Last Admin: 07/07/18 08:03 Dose: 20 mg Fluoxetine HCl (Prozac) 40 mg PO DAILY [facility] Gabapentin (Neurontin) 100 mg PO TID [facility] Last Admin: 07/07/18 16:10 Dose: 100 mg Hyoscyamine (Levsin) 0.125 mg SL Q4H PRN PRN Reason: Nausea / Vomiting Insulin Aspart (Novolog) 5 unit SUBQ TIDWM [facility] Last Admin: 07/07/18 17:07 Dose: Not Given Insulin Aspart (Novolog) 1 - 9 unit SUBQ 0800,1200,1700,2100 [facility]; Protocol Last Admin: 07/07/18 17:07 Dose: 1 unit Insulin Glargine (Lantus Solostar) 40 unit SUBQ QPM [facility] Last Admin: 07/06/18 21:05 Dose: 40 unit Ketorolac Tromethamine (Toradol Inj (30mg)) 30 mg IVP Q6HR PRN PRN Reason: PAIN Stop: 07/11/18 04:49 Last Admin: 07/07/18 07:59 Dose: 30 mg Lidocaine HCl (Xylocaine Viscous 2%) 5 ml MM Q4H PRN PRN Reason: Mouth Sore Pain Metoclopramide HCl (Reglan) 10 mg PO Q6H [facility] Last Admin: 07/07/18 16:10 Dose: 10 mg Ondansetron HCl (Zofran Odt) 4 mg TL Q4HR PRN PRN Reason: Nausea / Vomiting Polyethylene Glycol (Miralax) 17 gm PO DAILY [facility] Last Admin: 07/07/18 08:04 Dose: Not Given Promethazine HCl (Phenergan Inj) 25 mg IM Q6HR PRN PRN Reason: Nausea / Vomiting Last Admin: 07/07/18 17:29 Dose: 25 mg Insulin Glargine [Lantus Solostar] 40 units SUBQ QPM 04/29/18 Objective - Vital Signs/Intake & Output Reviewed Vital Signs: Yes Vital Signs: Vital Signs x48h Temp Pulse Resp BP Pulse Ox 07/07/18 15:42 36.9 C 87 16 138/92 H 100 07/07/18 13:00 37.0 C 96 18 130/93 H 99 Intake & Output: Intake & Output 07/04/18 07/05/18 07/06/18 07/07/18 23:59 23:59 23:59 23:59 Intake Total 4821.667 2894.333 Output Total 1800 2350 Balance 3021.667 544.333 - Objective General Appearance: positive: Alert, Moderate distress, Anxious Eyes Bilateral: positive: PERRL, No lid inflammation ENT: positive: Pharynx nml, Dry mucous membranes Neck: positive: Thyroid nml, No JVD, Trachea midline Respiratory: positive: Chest non-tender, No respiratory distress, Breath sounds nml Cardiovascular: positive: Regular rate & rhythm, No murmur, No gallop Peripheral Pulses: 1+ Radial (R), 1+ Radial (L) Abdomen: positive: Nml bowel sounds, Tenderness, Guarding Back: positive: Nml inspection Skin: positive: No rash, Warm, Dry Extremities: positive: Non-tender, Full ROM, Nml appearance, No pedal edema Neurologic/Psychiatric: positive: Oriented x3, CN's nml (2-12), Motor nml, Sensation nml, Weakness, Depressed mood/affect Reflexes: Bicep (R): 3+, Bicep (L): 3+ - Lab Results Fish Bones: 07/08/18 05:33 07/08/18 05:33 Other Labs: Lab Results x24hrs 07/07/18 07/07/18 07/07/18 Range/Units 16:39 11:10 07:22 WBC (4.8-10.8) x10^3/uL RBC (4.70-6.10) 10^6/uL Hgb (14.0-18.0) g/dL Hct (42.0-52.0) % MCV (80.0-94.0) fL MCH (27.0-31.0) pg MCHC (32.0-36.0) g/dL RDW (12.0-15.0) % Plt Count (130-450) 10^3/uL MPV (7.4-11.4) fL Neut # (Auto) (1.5-6.6) 10^3/uL Lymph # (Auto) (1.5-3.5) 10^3/uL Curry # (Auto) (0.0-1.0) 10^3/uL Eos # (Auto) (0.0-0.7) 10^3/uL Baso # (Auto) (0.0-0.1) 10^3/uL Absolute Nucleated RBC x10^3/uL Nucleated RBC % /100WBC VBG pH (7.31-7.41) Ionized Calcium (1.15-1.33) mmol/L Sodium (135-145) mmol/L Potassium (3.5-5.0) mmol/L Chloride (101-111) mmol/L Carbon Dioxide (21-32) mmol/L Anion Gap (6-13) BUN (6-20) mg/dL Creatinine (0.6-1.2) mg/dL Estimated GFR (MDRD) (>89) Glucose (70-100) mg/dL POC Whole Bld Glucose 155 H 136 H 193 H (70 - 100) mg/dL Calcium (8.5-10.3) mg/dL Phosphorus (2.5-4.6) mg/dL Magnesium (1.7-2.8) mg/dL Total Bilirubin (0.2-1.0) mg/dL AST (10-42) IU/L ALT (10-60) IU/L Alkaline Phosphatase (42-121) IU/L Total Protein (6.7-8.2) g/dL Albumin (3.2-5.5) g/dL Globulin (2.1-4.2) g/dL Albumin/Globulin Ratio (1.0-2.2) 07/07/18 07/07/18 07/07/18 Range/Units 04:35 04:35 04:35 WBC 5.5 (4.8-10.8) x10^3/uL RBC 4.02 L (4.70-6.10) 10^6/uL Hgb 11.9 L (14.0-18.0) g/dL Hct 35.7 L (42.0-52.0) % MCV 89.0 (80.0-94.0) fL MCH 29.7 (27.0-31.0) pg MCHC 33.4 (32.0-36.0) g/dL RDW 12.7 (12.0-15.0) % Plt Count 239 (130-450) 10^3/uL MPV 7.9 (7.4-11.4) fL Neut # (Auto) 2.8 (1.5-6.6) 10^3/uL Lymph # (Auto) 2.2 (1.5-3.5) 10^3/uL Curry # (Auto) 0.4 (0.0-1.0) 10^3/uL Eos # (Auto) 0.0 (0.0-0.7) 10^3/uL Baso # (Auto) 0.0 (0.0-0.1) 10^3/uL Absolute Nucleated RBC 0.00 x10^3/uL Nucleated RBC % 0.0 /100WBC VBG pH 7.342 (7.31-7.41) Ionized Calcium 1.15 YES (1.15-1.33) mmol/L Sodium 136 (135-145) mmol/L Potassium 2.8 L (3.5-5.0) mmol/L Chloride 109 (101-111) mmol/L Carbon Dioxide 20 L (21-32) mmol/L Anion Gap 7.0 (6-13) BUN 11 (6-20) mg/dL Creatinine 0.4 L (0.6-1.2) mg/dL Estimated GFR (MDRD) 274 (>89) Glucose 96 (70-100) mg/dL POC Whole Bld Glucose (70 - 100) mg/dL Calcium 8.2 L (8.5-10.3) mg/dL Phosphorus 2.7 (2.5-4.6) mg/dL Magnesium 2.1 (1.7-2.8) mg/dL Total Bilirubin 0.6 (0.2-1.0) mg/dL AST 17 (10-42) IU/L ALT 17 (10-60) IU/L Alkaline Phosphatase 83 (42-121) IU/L Total Protein 5.8 L (6.7-8.2) g/dL Albumin 3.0 L (3.2-5.5) g/dL Globulin 2.8 (2.1-4.2) g/dL Albumin/Globulin Ratio 1.1 (1.0-2.2) 07/06/18 Range/Units 21:04 WBC (4.8-10.8) x10^3/uL RBC (4.70-6.10) 10^6/uL Hgb (14.0-18.0) g/dL Hct (42.0-52.0) % MCV (80.0-94.0) fL MCH (27.0-31.0) pg MCHC (32.0-36.0) g/dL RDW (12.0-15.0) % Plt Count (130-450) 10^3/uL MPV (7.4-11.4) fL Neut # (Auto) (1.5-6.6) 10^3/uL Lymph # (Auto) (1.5-3.5) 10^3/uL Curry # (Auto) (0.0-1.0) 10^3/uL Eos # (Auto) (0.0-0.7) 10^3/uL Baso # (Auto) (0.0-0.1) 10^3/uL Absolute Nucleated RBC x10^3/uL Nucleated RBC % /100WBC VBG pH (7.31-7.41) Ionized Calcium (1.15-1.33) mmol/L Sodium (135-145) mmol/L Potassium (3.5-5.0) mmol/L Chloride (101-111) mmol/L Carbon Dioxide (21-32) mmol/L Anion Gap (6-13) BUN (6-20) mg/dL Creatinine (0.6-1.2) mg/dL Estimated GFR (MDRD) (>89) Glucose (70-100) mg/dL POC Whole Bld Glucose 124 H (70 - 100) mg/dL Calcium (8.5-10.3) mg/dL Phosphorus (2.5-4.6) mg/dL Magnesium (1.7-2.8) mg/dL Total Bilirubin (0.2-1.0) mg/dL AST (10-42) IU/L ALT (10-60) IU/L Alkaline Phosphatase (42-121) IU/L Total Protein (6.7-8.2) g/dL Albumin (3.2-5.5) g/dL Globulin (2.1-4.2) g/dL Albumin/Globulin Ratio (1.0-2.2) ABX Reporting Has patient been on IV antibiotics over the past 48 hours?: No Assessment/Plan - Problem List (1) Intractable nausea and vomiting Impression: The patient was improved with these symptoms and tolerated his AM meal. After learning that he would be discharged he called me to the room as he had begun throwing up and continued to have nausea. His IV was already taken out, so this will remain out. Plan: Give Zofran TL, continue PO Reglan scheduled Q6Hs, and hyoscyamine as needed. Qualifiers: Vomiting type: unspecified Qualified Code(s): R11.2 - Nausea with vomiting, unspecified (2) Abdominal pain Impression: To remain consistent, the patient has NOT been given any narcotic, despite him asking both nursing staff and the medical team. I have started him on gabapentin and saw that he received hyoscyamine and I have resumed this. Plan: Continue NO narcotics, gabapentin, and hyoscyamine, PRN. Qualifiers: Abdominal location: generalized Qualified Code(s): R10.84 - Generalized abdominal pain (3) Diabetes type 1, uncontrolled Impression: The patient has a history of uncontrolled type 1 diabetes. The patient's A1c to day is 12.8. Patient's blood glucose on presentation was 381. Patient did not have any ketones or an anion gap to suggest diabetic ketoacidosis. The patient has had multiple previous hospitalizations for DKA. The patient was treated in the emergency department with regular insulin which did seem to bring down his blood sugar to 204. The patient has been started on his home dose of Lantus and mealtime NovoLog using SSI, blood glucose checked before meals at bedtime. He was placed on a diabetic diet and he was counseled on need for compliance with medications. Plan: Continue care with Lantus, SSI and carb controlled diet. Qualifiers: Glycemic state: with hyperglycemia Qualified Code(s): E10.65 - Type 1 diabetes mellitus with hyperglycemia (4) Major depressive disorder Impression: The patient was on the very minimum dose of his Prozac, so I have increased this to 40mg PO daily. A new prescription was sent to the pharmacy, and I spoke to the patient about this increased dose. Plan: Give an additional 20mg tonight, and start 40mg in the AM. Qualifiers: Major depression recurrence: recurrent Active/Remission status: currently active (5) Hypo-osmolality and hyponatremia Impression: The patient presents with mild hyponatremia as his sodium is 134. The patient did appear to be dry on examination and likely has hypovolemic hyponatremia. The patient has been nauseated and vomiting for the last several days and has not been keeping anything down. Patient has been given IV fluids and we will continue to monitor his sodium. Plan: Continue to monitor labs, and continue IV fluids. (6) Hypophosphatemia Impression: The patient's phosphorus was low on presentation at 2.1 that improved to 2.7. This is likely secondary to intractable nausea and vomiting. Patient's phosphorus was replaced and this condition is resolved. Plan: Daily labs. (7) Non compliance with medical treatment Impression: The patient has been non-compliant for quite some time. He is thought to lack social support at home. He has had some improvement since starting his prozac. Plan: Continue to monitor and encourage the patient to follow through with his out patient follow ups.
[2018-07-07] MEDS: INSULIN GLARGINE 300 UNIT/3 ML PEN SUBQ SCH (20:56)
[2018-07-08] MEDS: METOCLOPRAMIDE 10 MG TABLET PO SCH ×2 (04:05→11:32)
[2018-07-08 05:53] LABS: BASOPHILS % (AUTO) 0.5 %; HGB - HEMOGLOBIN 11.8 g/dL (14.0-18.0); LYMPHOCYTES # (AUTO) 1.5 10^3/uL (1.5-3.5); LYMPHOCYTES % (AUTO) 24.2 %; MEAN CORPUSCULAR HEMOGLOBIN 29.5 pg (27.0-31.0); MEAN CORPUSCULAR HGB CONC 33.6 g/dL (32.0-36.0); MEAN CORPUSCULAR VOLUME 87.9 fL (80.0-94.0); MEAN PLATELET VOLUME 7.7 fL (7.4-11.4); MONOCYTES # (AUTO) 0.7 10^3/uL (0.0-1.0); MONOCYTES % (AUTO) 10.5 %; NEUTROPHILS # (AUTO) 4.1 10^3/uL (1.5-6.6); NEUTROPHILS % (AUTO) 64.8 %; PLT - PLATELET COUNT 276 10^3/uL (130-450); RED CELL DISTRIBUTION WIDTH 12.5 % (12.0-15.0); WHITE BLOOD COUNT 6.3 x10^3/uL (4.8-10.8)
[2018-07-08 06:04] LABS: ALBUMIN 3.2 g/dL (3.2-5.5); ALKALINE PHOSPHATASE 81 IU/L (42-121); ALT ALANINE AMINOTRANSFERASE 15 IU/L (10-60); AST ASPARTATE AMINOTRANSFERASE 19 IU/L (10-42); BILIRUBIN,TOTAL 0.4 mg/dL (0.2-1.0); BUN - BLOOD UREA NITROGEN 11 mg/dL (6-20); CALCIUM 8.7 mg/dL (8.5-10.3); CARBON DIOXIDE - CO2 26 mmol/L (21-32); CHLORIDE 106 mmol/L (101-111); CREATININE 0.4 mg/dL (0.6-1.2); GFR - MDRD 274 (>89); GLUCOSE 81 mg/dL (70-100); MAGNESIUM 2.1 mg/dL (1.7-2.8); SODIUM 140 mmol/L (135-145); TOTAL PROTEIN 6.3 g/dL (6.7-8.2)
[2018-07-08] MEDS: GABAPENTIN 100 MG CAPSULE PO SCH ×2 (06:10→13:46)
[2018-07-08] MEDS ORDERED: POTASSIUM CHLORIDE 20 MEQ TABLET PO ONE (06:33)
[2018-07-08] MEDS: FAMOTIDINE 20 MG TABLET PO SCH (08:20)
[2018-07-08] MEDS: ENOXAPARIN 40 MG/0.4 ML SYRINGE SUBQ SCH (08:20)
[2018-07-08] MEDS: INSULIN ASPART 300 UNIT/3 ML PEN SUBQ SCH ×4 (08:23→11:43)
[2018-07-08] MEDS: POLYETHYLENE GLYCOL 3350 17 GM PACKET PO SCH (08:23)
[2018-07-08] MEDS ORDERED: FLUoxetine 10 MG CAPSULE PO SCH (09:00)
[2018-07-08 12:44] VITALS: BP 126/81
[2018-07-08] MEDS ORDERED: INSULIN GLARGINE 300 UNIT/3 ML PEN SUBQ SCH (21:00)
== END 2018-07-08 13:48 | disposition home or self-care (01) ==
LOC: ED 00:17 → MS2 04:51 → INTOOBSV 04:51
PROVIDERS: ADMIT Internal Medicine; ATTEND Nurse Practitioner
DX: R11.2 Nausea with vomiting, unspecified (principal); R10.84 Generalized abdominal pain; E10.65 Type 1 diabetes mellitus with hyperglycemia; Z79.4 Long term (current) use of insulin; F32.9 Major depressive disorder, single episode, unspecified; E87.1 Hypo-osmolality and hyponatremia; E83.39 Other disorders of phosphorus metabolism; Z91.14 Patient's other noncompliance with medication regimen; F41.9 Anxiety disorder, unspecified; E10.42 Type 1 diabetes mellitus with diabetic polyneuropathy
CPT/HCPCS: 36415; 80053; 81001; 82009; 82330; 82803; 83036; 83690; 83735; 84100; 85025; 87086; 96361; 96365; 96366; 96367; 96372; 96375; 96376; 99283; 99284; A9270; G0378; J1650; J1815; J2765; Q0162; 81003; 96374

== ENCOUNTER 2018-07-09 21:43 | Emergency (ER) | payer MEDICAID ==
[2018-07-09] MEDS ORDERED: SODIUM CHLORIDE 0.9% 1,000 ML IV ONE (21:57)
[2018-07-09 22:12] LABS: BASOPHILS % (AUTO) 0.6 %; EOSINOPHILS % (AUTO) 0.5 %; HGB - HEMOGLOBIN 13.6 g/dL (14.0-18.0); LYMPHOCYTES # (AUTO) 1.1 10^3/uL (1.5-3.5); LYMPHOCYTES % (AUTO) 15.7 %; MEAN CORPUSCULAR HEMOGLOBIN 29.3 pg (27.0-31.0); MEAN CORPUSCULAR HGB CONC 32.9 g/dL (32.0-36.0); MEAN PLATELET VOLUME 7.9 fL (7.4-11.4); MONOCYTES # (AUTO) 0.2 10^3/uL (0.0-1.0); MONOCYTES % (AUTO) 3.3 %; NEUTROPHILS # (AUTO) 5.4 10^3/uL (1.5-6.6); NEUTROPHILS % (AUTO) 79.9 %; PLT - PLATELET COUNT 372 10^3/uL (130-450); RED BLOOD COUNT 4.64 10^6/uL (4.70-6.10); RED CELL DISTRIBUTION WIDTH 12.9 % (12.0-15.0); WHITE BLOOD COUNT 6.8 x10^3/uL (4.8-10.8)
[2018-07-09] MEDS ORDERED: ONDANSETRON 4 MG/2 ML VIAL IVP STA (22:15)
[2018-07-09] MEDS ORDERED: HYDROmorphone 1 MG/ML CARPUJECT IVP STA ×2 (22:15→23:02)
[2018-07-09] MEDS ORDERED: INSULIN REGULAR HUMAN 100 UNIT in SODIUM CHLORIDE 0.9% 100ML 99 ML IV STA (22:16)
[2018-07-09 22:23] LABS: ALBUMIN 4.5 g/dL (3.2-5.5); ALBUMIN/GLOBULIN RATIO 1.1 (1.0-2.2); BILIRUBIN,TOTAL 1.2 mg/dL (0.2-1.0); CALCIUM 9.8 mg/dL (8.5-10.3); CREATININE 0.7 mg/dL (0.6-1.2); TOTAL PROTEIN 8.5 g/dL (6.7-8.2)
[2018-07-09 22:33] LABS: VBG BASE EXCESS 1.5 mmol/L (-2 - +2); VBG PCO2 39.8 mmHg (41-51); VBG PH 7.43 (7.31-7.41); VBG PO2 31.8 mmHg (25-47)
[2018-07-09 23:00] LABS: BILIRUBIN,URINE NEGATIVE (NEGATIVE); GLUCOSE, URINE (UA) >=1000 mg/dL (NEGATIVE); KETONES,URINE (UA) TRACE mg/dL (NEGATIVE); LEUKOCYTE ESTERASE, URINE NEGATIVE (NEGATIVE); NITRITE,URINE NEGATIVE (NEGATIVE); OCCULT BLOOD,URINE NEGATIVE (NEGATIVE); PROTEIN,URINE NEGATIVE (NEGATIVE); UROBILINOGEN,URINE 0.2 (NORMAL) E.U./dL (NORMAL)
[2018-07-09 23:04] LABS: CLARITY,URINE CLEAR (CLEAR)
--- NOTE | 2018-07-10 01:03 | ED Physician Documentation ---
PD HPI ABD PAIN - Stated complaint Stated Complaint: NAUSEA/VOMITING - Chief complaint Chief Complaint: Abd Pain - History obtained from History obtained from: Patient - History of Present Illness Timing - onset: Today Timing - duration: Hours Timing - details: Abrupt onset, Still present Quality: Sharp, Pain Location: All over / everywhere Improved by: Laying still Worsened by: Moving, Position, Palpation Associated symptoms: Nausea, Vomiting Similar symptoms before: Diagnosis (gastroparesis and urinary retention) Recently seen: Admitted - Additional information Additional information: 18-year-old male with a lifetime history of diabetes and frequent admissions to the hospital for both diabetic gastroparesis and diabetic ketoacidosis has had a prior episode of urinary retention which he was able to spontaneously resolve himself and tonight he comes into the emergency department with acute abdominal pain and vomiting. He indicates that he did not take any sliding scale insulin this morning and he did not test his blood this morning. He spent most of the day in bed and this evening developed the abdominal pain and vomiting. He states symptoms are similar to what he has had previously with gastroparesis. He was admitted to the hospital for 2 days and discharged yesterday. Review of Systems Constitutional: reports: Fatigue. denies: Fever Eyes: denies: Decreased vision Ears: denies: Ear pain Nose: denies: Rhinorrhea / runny nose, Congestion Throat: denies: Sore throat Cardiac: denies: Chest pain / pressure, Palpitations Respiratory: denies: Dyspnea, Cough GI: reports: Abdominal Pain, Nausea, Vomiting : denies: Dysuria Skin: denies: Rash Musculoskeletal: denies: Neck pain, Back pain, Extremity pain Neurologic: reports: Generalized weakness. denies: Focal weakness, Numbness PD PAST MEDICAL HISTORY - Past Medical History Past Medical History: Yes Cardiovascular: None Respiratory: None Neuro: Peripheral neuropathy Endocrine/Autoimmune: Type 1 diabetes GI: Other : None HEENT: None Psych: Depression, Anxiety Musculoskeletal: None Derm: None - Past Surgical History Past Surgical History: No - Present Medications Home Medications: Ambulatory Orders Medication Instructions Recorded Confirmed Insulin Aspart [NovoLOG] 5 unit SUBQ TIDWM #3 pen 07/07/18 Pen Needle, Diabetic [Insulin Pen 1 each MC QID #150 dis.needle 07/08/18 Needle] Fluoxetine HCl [Prozac] 20 mg PO DAILY 07/09/18 Insulin Glargine [Lantus Solostar] 40 unit SUBQ DAILY PM 07/09/18 - Allergies Allergies/Adverse Reactions: Allergies Allergy/AdvReac Type Severity Reaction Status Date / Time No Known Drug Allergies Allergy Verified 07/09/18 22:10 - Social History Does the pt smoke?: No Smoking Status: Never smoker Does the pt drink ETOH?: Yes Does the pt have substance abuse?: No - Immunizations Immunizations are current?: Yes - POLST Patient has POLST: No POLST Status: Full Code PD ED PE NORMAL - Vitals Vital signs reviewed: Yes - General General: Alert and oriented X 3, Well developed/nourished, Other (18 y/o male moaning in pain with an empty emesis bag in his hands. ) - HEENT HEENT: Atraumatic, PERRL, EOMI - Neck Neck: Supple, no meningeal sign - Cardiac Cardiac: RRR, No murmur - Respiratory Respiratory: No respiratory distress, Clear bilaterally - Abdomen Abdomen: Soft, Other (There is a palpable bladder extending to the umbilicus in this thin male. It is tender but does not reproduce the pain the patient is expe riencing. ) - Back Back: No CVA TTP, No spinal TTP - Derm Derm: Normal color, Warm and dry, No rash - Extremities Extremities: No deformity, No edema - Neuro 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, pole maker 2-12 intact, No motor deficit, No sensory deficit, Normal speech Eye Opening: Spontaneous Motor: Obeys Commands Verbal: Oriented GCS Score: 15 - Psych Psych: Other (mood is withdrawn and the affect is flat. ) Results - Vitals Vitals: Vital Signs - 24 hr 07/09/18 07/09/18 07/09/18 21:50 22:30 22:36 Temperature 36.0 C L Heart Rate 103 H 92 92 Respiratory 20 20 18 Rate Blood Pressure 159/109 H 149/107 H 151/108 H O2 Saturation 99 100 100 07/09/18 07/09/18 07/09/18 23:09 23:18 23:30 Temperature 36.8 C Heart Rate 96 93 102 H Respiratory 18 16 14 Rate Blood Pressure 146/106 H 144/105 H 145/105 H O2 Saturation 100 100 75 L 07/09/18 07/10/18 07/10/18 23:32 00:15 01:00 Temperature Heart Rate 100 108 H 104 H Respiratory 16 15 16 Rate Blood Pressure 141/103 H 145/102 H 139/104 H O2 Saturation 100 100 100 07/10/18 01:59 Temperature Heart Rate 125 H Respiratory 18 Rate Blood Pressure 123/82 H O2 Saturation 100 Oxygen O2 Source Room air Oxygen Flow Rate 2 - Labs Labs: Laboratory Tests 07/09/18 07/09/18 07/09/18 22:05 22:05 22:20 WBC 6.8 RBC 4.64 L Hgb 13.6 L Hct 41.3 L MCV 89.0 MCH 29.3 MCHC 32.9 RDW 12.9 Plt Count 372 MPV 7.9 Neut # (Auto) 5.4 Lymph # (Auto) 1.1 L [place] # (Auto) 0.2 Eos # (Auto) 0.0 Baso # (Auto) 0.0 Absolute Nucleated RBC 0.00 Nucleated RBC % 0.0 VBG pH VBG pCO2 VBG pO2 VBG HCO3 VBG Total CO2 VBG O2 Saturation VBG Base Excess Sodium 134 L Potassium 3.7 Chloride 93 L Carbon Dioxide 26 Anion Gap 15.0 H BUN 16 Creatinine 0.7 Estimated GFR (MDRD) 144 Glucose 587 H* Calcium 9.8 Total Bilirubin 1.2 H AST 21 ALT 19 Alkaline Phosphatase 113 Total Protein 8.5 H Albumin 4.5 Globulin 4.0 Albumin/Globulin Ratio 1.1 Lipase 29 Urine Color Urine Clarity Urine pH Ur Specific [place] Urine Protein Urine Glucose (UA) Urine Ketones Urine Occult Blood Urine Nitrite Urine Bilirubin Urine Urobilinogen Ur Leukocyte Esterase Ur Microscopic Review Urine Culture Comments Serum Ketones SMALL H 07/09/18 07/09/18 22:20 22:48 WBC RBC Hgb Hct MCV MCH MCHC RDW Plt Count MPV Neut # (Auto) Lymph # (Auto) [place] # (Auto) Eos # (Auto) Baso # (Auto) Absolute Nucleated RBC Nucleated RBC % VBG pH 7.430 H VBG pCO2 39.8 L VBG pO2 31.8 VBG HCO3 25.8 VBG Total CO2 27.0 VBG O2 Saturation 65.7 VBG Base Excess 1.5 Sodium Potassium Chloride Carbon Dioxide Anion Gap BUN Creatinine Estimated GFR (MDRD) Glucose Calcium Total Bilirubin AST ALT Alkaline Phosphatase Total Protein Albumin Globulin Albumin/Globulin Ratio Lipase Urine Color LIGHT YELLOW Urine Clarity CLEAR Urine pH 6.0 Ur Specific [place] <=1.005 Urine Protein NEGATIVE Urine Glucose (UA) >=1000 H Urine Ketones TRACE Urine Occult Blood NEGATIVE Urine Nitrite NEGATIVE Urine Bilirubin NEGATIVE Urine Urobilinogen 0.2 (NORMAL) Ur Leukocyte Esterase NEGATIVE Ur Microscopic Review NOT INDICATED Urine Culture Comments NOT INDICATED Serum Ketones Procedures - Bedside sono Bedside sono by EMP: with the use of bedside ultrasound the bladder is imaged and is obviously over filled and tender. - IVC sono (time) 2210 Bedside IVC sono: IVC measures (cm) (1.54), IVC collapsed c insp (cm) (.89), Euvolemia PD MEDICAL DECISION MAKING - ED course Complexity details: reviewed old records, reviewed results, re-evaluated patient, considered differential, d/w patient ED course: 18 y/o male diabetic arrives to the ED vomiting with a blood sugar of 563 and complaints of abdominal pain. He is found to have an over distended bladder and he is unable to urinate this morning and a zee is placed with drainage of 2250ml of urine clear. He is uncircumcised and retraction of the foreskin results in phimosis which is manually reduced. He does have a lot of schmegma and this is a likely cause of prior urinalysis appearing infected. Resolution of the urinary retention does not result in spontaneous resolution of symptoms. He requires doses of diluadid IV for pain control. He is placed on an insulin drip and given one liter of saline (he was euvolemic on arrival) with improvement in his blood sugar. He continues to have abdominal pain and nausea. He has improvement in his nausea but continues to have mid abdominal aching pain. He is given a 3rd dose of dilaudid IV at his request as he feels if we send him home with pain medication it does not work as well and he will take multiple pills and feels like he is doing something wrong. He refuses to keep the zee in place and after a long discussion the catheter is removed and he will return for symptoms of retention. I have asked him to check his am sugar and take sliding scale insulin and not spend the day in bed asleep especially if he has urine accumulating. Departure - Departure Disposition: 01 Home, Self Care Clinical Impression: Neurogenic bladder, Urinary retention Abdominal pain Qualifiers: Abdominal location: periumbilical Qualified Code(s): R10.33 - Periumbilical pain Condition: Stable Instructions: ED Retention Urinary Male Follow-Up: Ailin Kumar DNP [Primary Care Provider] - Comments: Today we found your bladder to contain more than 2 Liters of urine. This may result in your bladder not working well and if you are unable to urinate this morning or you develop return of your symptoms with distention of your bladder return to the emergency department for catheterization. Today we are recommending that you keep the catheter in place for a week to 10 days and since you have refused this we will keep this as our plan.
[2018-07-10] MEDS ORDERED: HYDROmorphone 1 MG/ML CARPUJECT IVP STA (02:19)
[2018-07-10] MEDS ORDERED: ONDANSETRON 4 MG/2 ML VIAL IVP STA (02:19)
[2018-07-10 03:03] VITALS: BP 106/63
== END 2018-07-10 03:09 | disposition home or self-care (01) ==
LOC: ED 21:43
DX: N31.9 Neuromuscular dysfunction of bladder, unspecified (principal); R33.9 Retention of urine, unspecified; R10.33 Periumbilical pain; E10.42 Type 1 diabetes mellitus with diabetic polyneuropathy
CPT/HCPCS: 36415; 51702; 51703; 80053; 81003; 82009; 82803; 83690; 85025; 96361; 96374; 96375; 96376; 99284; 99285; J1170; J1815; 81001; 87086

== ENCOUNTER 2018-08-12 20:58 | Emergency (ER) | payer MEDICAID ==
--- NOTE | 2018-08-12 21:28 | ED Physician Documentation ---
PD HPI NVD - Stated complaint Stated Complaint: DIABETIC/N/V/ABD PX - Chief complaint Chief Complaint: Abd Pain - History obtained from History obtained from: Patient - History of Present Illness Timing - onset: Today (this morning) Timing - details: Abrupt onset Pain level max: 10 Pain level now: 8 Associated symptoms: Abdominal pain. No: Fever, Hematemesis Improved by: Other (nothing) Worsened by: Position, Palpation Similar symptoms before: Diagnosis (chronic abdominal pain, gastroparesis) Recently seen: Emergency Dept - Additonal information Additional information: 21st [facility] ED visit this year. patient says today he has less nausea than typical visit, mostly c/o abd. pain Review of Systems Constitutional: reports: Reviewed and negative Cardiac: reports: Reviewed and negative Respiratory: reports: Reviewed and negative GI: reports: Abdominal Pain, Nausea, Vomiting. denies: Constipation, Diarrhea : denies: Dysuria, Frequency PD PAST MEDICAL HISTORY - Past Medical History Cardiovascular: None Respiratory: None Neuro: Peripheral neuropathy Endocrine/Autoimmune: Type 1 diabetes GI: Other : None HEENT: None Psych: Depression, Anxiety Musculoskeletal: None Derm: None - Past Surgical History Past Surgical History: No - Present Medications Home Medications: Ambulatory Orders Medication Instructions Recorded Confirmed Insulin Aspart [NovoLOG] 5 unit SUBQ TIDWM #3 pen 07/07/18 Pen Needle, Diabetic [Insulin Pen 1 each MC QID #150 dis.needle 07/08/18 Needle] Fluoxetine HCl [Prozac] 20 mg PO DAILY 07/09/18 Insulin Glargine [Lantus Solostar] 40 unit SUBQ DAILY PM 07/09/18 Metoclopramide [Reglan] 10 mg PO Q6H PRN #14 tablet 08/13/18 Mupirocin Calcium [Bactroban] 1 film TP BID #1 cream..g. 08/13/18 - Allergies Allergies/Adverse Reactions: Allergies Allergy/AdvReac Type Severity Reaction Status Date / Time No Known Drug Allergies Allergy Verified 07/09/18 22:10 - Social History Does the pt smoke?: No Smoking Status: Never smoker Does the pt drink ETOH?: Yes Does the pt have substance abuse?: No - Immunizations Immunizations are current?: Yes - POLST Patient has POLST: No POLST Status: Full Code PD ED PE NORMAL - Vitals Vital signs reviewed: Yes - General General: Alert and oriented X 3, Well developed/nourished, Other (intermittently appears to be uncomfortable) - HEENT HEENT: Moist mucous membranes - Cardiac Cardiac: No murmur - Respiratory Respiratory: No respiratory distress - Abdomen Abdomen: Normal bowel sounds, Soft, Non tender, Non distended - Back Back: No CVA TTP - Derm Derm: Normal color, Warm and dry PD ED PE EXPANDED - Cardiac Cardiac: Tachy, Regular Rhythm - Derm Derm: Other (1 cm diameter abscess left parieto-occipital scalp which drains moderate amount of pus with minimal pressure) Results - Vitals Vitals: Vital Signs - 24 hr 08/12/18 08/12/18 08/13/18 21:14 23:40 00:05 Temperature 36.5 C 36.7 C Heart Rate 117 H 112 H 96 Respiratory 20 15 14 Rate Blood Pressure 136/89 H 123/79 122/78 O2 Saturation 100 100 100 Oxygen O2 Source Room air - Labs Labs: Laboratory Tests 08/12/18 08/12/18 08/12/18 22:21 22:21 23:42 WBC 5.8 RBC 4.81 Hgb 13.8 L Hct 43.2 MCV 89.8 MCH 28.7 MCHC 31.9 L RDW 12.8 Plt Count 295 MPV 8.0 Neut # (Auto) 4.5 Lymph # (Auto) 0.9 L [place] # (Auto) 0.3 Eos # (Auto) 0.0 Baso # (Auto) 0.0 Absolute Nucleated RBC 0.01 Nucleated RBC % 0.1 Sodium 128 L Potassium 4.6 Chloride 94 L Carbon Dioxide 24 Anion Gap 10.0 BUN 22 H Creatinine 0.6 Estimated GFR (MDRD) 172 Glucose 623 H* POC Whole Bld Glucose 394 H Calcium 9.1 Total Bilirubin 0.9 AST 21 ALT 16 Alkaline Phosphatase 101 Total Protein 7.9 Albumin 3.8 Globulin 4.1 Albumin/Globulin Ratio 0.9 L Lipase 32 Serum Ketones SMALL H PD MEDICAL DECISION MAKING - ED course Complexity details: reviewed old records, reviewed results, re-evaluated patient, considered differential, d/w patient ED course: given IV NS, ofirmev, toradol, reglan. he reported adequate symptomatic relief with these interventions and was tolerating small amts. po (crackers, fluids) without difficulty. small scalp abscess was already draining (as indicated by blood and pus on pillow), and with mild pressure, pus drained and the lesion flattened and lost fluctuance (thus no I+D necessary) Departure - Departure Disposition: 01 Home, Self Care Clinical Impression: Abdominal pain Qualifiers: Abdominal location: generalized Qualified Code(s): R10.84 - Generalized abdominal pain Diabetes type 1, uncontrolled Qualifiers: Glycemic state: with hyperglycemia Qualified Code(s): E10.65 - Type 1 diabetes mellitus with hyperglycemia Condition: Good Instructions: ED Abdominal Pain Unkn Cause Male Follow-Up: Ailin Kumar DNP [Primary Care Provider] - Within 1 week Prescriptions: Metoclopramide [Reglan] 10 mg PO Q6H PRN #14 tablet PRN Reason: Nausea / Vomiting Mupirocin Calcium [Bactroban] 1 film TP BID #1 cream..g. Discharge Date/Time: 08/13/18 00:09
[2018-08-12] MEDS ORDERED: ACETAMINOPHEN 1,000 MG/100 ML 100 ML IV STA (21:45)
[2018-08-12] MEDS ORDERED: METOCLOPRAMIDE 10 MG/2 ML VIAL IVP STA (21:45)
[2018-08-12] MEDS ORDERED: KETOROLAC 60 MG/2 ML VIAL IVP STA (21:45)
[2018-08-12] MEDS ORDERED: SODIUM CHLORIDE 0.9% 1,000 ML IV STA ×2 (21:45→22:44)
[2018-08-12 22:28] LABS: BASOPHILS % (AUTO) 0.4 %; EOSINOPHILS % (AUTO) 0.6 %; HGB - HEMOGLOBIN 13.8 g/dL (14.0-18.0); LYMPHOCYTES # (AUTO) 0.9 10^3/uL (1.5-3.5); LYMPHOCYTES % (AUTO) 16.2 %; MEAN CORPUSCULAR HEMOGLOBIN 28.7 pg (27.0-31.0); MEAN CORPUSCULAR HGB CONC 31.9 g/dL (32.0-36.0); MEAN CORPUSCULAR VOLUME 89.8 fL (80.0-94.0); MONOCYTES # (AUTO) 0.3 10^3/uL (0.0-1.0); MONOCYTES % (AUTO) 5.3 %; NEUTROPHILS # (AUTO) 4.5 10^3/uL (1.5-6.6); NEUTROPHILS % (AUTO) 77.5 %; PLT - PLATELET COUNT 295 10^3/uL (130-450); RED BLOOD COUNT 4.81 10^6/uL (4.70-6.10); RED CELL DISTRIBUTION WIDTH 12.8 % (12.0-15.0); WHITE BLOOD COUNT 5.8 x10^3/uL (4.8-10.8)
[2018-08-12 22:36] LABS: KETONES, SERUM (ACETEST) SMALL (NEGATIVE)
[2018-08-12 22:44] LABS: ALBUMIN 3.8 g/dL (3.2-5.5); ALBUMIN/GLOBULIN RATIO 0.9 (1.0-2.2); ALKALINE PHOSPHATASE 101 IU/L (42-121); ALT ALANINE AMINOTRANSFERASE 16 IU/L (10-60); AST ASPARTATE AMINOTRANSFERASE 21 IU/L (10-42); BILIRUBIN,TOTAL 0.9 mg/dL (0.2-1.0); BUN - BLOOD UREA NITROGEN 22 mg/dL (6-20); CALCIUM 9.1 mg/dL (8.5-10.3); CARBON DIOXIDE - CO2 24 mmol/L (21-32); CHLORIDE 94 mmol/L (101-111); CREATININE 0.6 mg/dL (0.6-1.2); GFR - MDRD 172 (>89); LIPASE 32 U/L (22-51); SODIUM 128 mmol/L (135-145); TOTAL PROTEIN 7.9 g/dL (6.7-8.2)
[2018-08-12] MEDS ORDERED: INSULIN REGULAR HUMAN 100 UNIT/1 ML 10 ML MDV IVP STA (22:44)
[2018-08-12 22:45] LABS: GLUCOSE 623 mg/dL (70-100)
[2018-08-13 00:08] VITALS: BP 122/78
== END 2018-08-13 00:09 | disposition home or self-care (01) ==
LOC: ED 20:58
DX: R10.84 Generalized abdominal pain (principal); E10.65 Type 1 diabetes mellitus with hyperglycemia; L02.811 Cutaneous abscess of head [any part, except face]; E10.42 Type 1 diabetes mellitus with diabetic polyneuropathy
CPT/HCPCS: 36415; 80053; 82009; 83690; 85025; 96361; 96365; 96375; 99283; J0131; J1815; J2765

== ENCOUNTER 2018-08-18 20:34 | Observation (INO) | payer MEDICAID ==
[2018-08-18] MEDS ORDERED: FAMOTIDINE 20 MG/50 ML 50 ML IV ONE (20:50)
[2018-08-18] MEDS ORDERED: ONDANSETRON 4 MG/2 ML VIAL IVP STA (20:50)
--- NOTE | 2018-08-18 21:00 | ED Physician Documentation ---
PD HPI ABD PAIN - Stated complaint Stated Complaint: N/V/ABD PX - Chief complaint Chief Complaint: Abd Pain - History obtained from History obtained from: Patient - History of Present Illness Timing - onset: How many hours ago (4) Timing - details: Abrupt onset (4), Still present, Still present in ED Pain level max: 10 Pain level now: 10 Quality: Cramping Location: All over / everywhere Improved by: Other Worsened by: Eating Associated symptoms: Nausea, Vomiting. No: Fever, Hematemesis, Diarrhea, Constipation, Melena, Hematochezia, Dysuria, Hematuria, Chest pain, Dizzy, Near syncope / syncope, Loss of appetite Similar symptoms before: Work up / diagnostics Recently seen: Emergency Dept - Additional information Additional information: 18-year-old male with history of diabetes type 1 (Claims his blood sugar had been running around 200s) here with complaint of abdominal pain since 4 PM associated with nausea and vomiting. Patient stated he had Thanksgiving turkey dinner with all the trimmings at 6 PM. Patient denies any trauma, travel or sick contact. Patient have been in the emergency room for similar episodes. The last time he was here was August 12 and was given Toradol and Reglan and IV fluids with improvement. He informed the nurse that he was sent home with Reglan but has not filled it review of chart showed that he has history of gastroparesis. The last CT scan was done on March 11, 2018 and he had EGD done with biopsies March 12, 2018 Review of Systems Ten Systems: 10 systems reviewed and negative Constitutional: denies: Fever, Chills, Myalgias Nose: denies: Rhinorrhea / runny nose Cardiac: denies: Chest pain / pressure Respiratory: denies: Dyspnea GI: reports: Abdominal Pain, Nausea, Vomiting. denies: Abdominal Swelling, Constipation, Diarrhea, Hematemesis, Bloody / black stool : denies: Dysuria, Frequency Musculoskeletal: denies: Back pain Neurologic: denies: Generalized weakness PD PAST MEDICAL HISTORY - Past Medical History Cardiovascular: None Respiratory: None Neuro: Peripheral neuropathy Endocrine/Autoimmune: Type 1 diabetes GI: Other : None HEENT: None Psych: Depression, Anxiety Musculoskeletal: None Derm: None - Past Surgical History Past Surgical History: No - Present Medications Home Medications: Ambulatory Orders Medication Instructions Recorded Confirmed Insulin Aspart [NovoLOG] 5 unit SUBQ TIDWM #3 pen 07/07/18 Pen Needle, Diabetic [Insulin Pen 1 each MC QID #150 dis.needle 07/08/18 Needle] Fluoxetine HCl [Prozac] 20 mg PO DAILY 07/09/18 Insulin Glargine [Lantus Solostar] 40 unit SUBQ DAILY PM 07/09/18 Metoclopramide [Reglan] 10 mg PO Q6H PRN #14 tablet 08/13/18 Mupirocin Calcium [Bactroban] 1 film TP BID #1 cream..g. 08/13/18 - Allergies Allergies/Adverse Reactions: Allergies Allergy/AdvReac Type Severity Reaction Status Date / Time No Known Drug Allergies Allergy Verified 08/18/18 20:44 - Social History Does the pt smoke?: No Smoking Status: Never smoker Does the pt drink ETOH?: Yes Does the pt have substance abuse?: No - Immunizations Immunizations are current?: Yes - POLST Patient has POLST: No POLST Status: Full Code PD ED PE NORMAL - Vitals Vital signs reviewed: Yes - General General: Alert and oriented X 3, No acute distress, Well developed/nourished - HEENT HEENT: EOMI, Moist mucous membranes, Pharynx benign - Neck Neck: Supple, no meningeal sign - Cardiac Cardiac: RRR, No murmur - Respiratory Respiratory: No respiratory distress, Clear bilaterally - Abdomen Abdomen: Normal bowel sounds, Soft, Non tender, Non distended, No organomegaly - Back Back: No CVA TTP - Derm Derm: Normal color, Warm and dry - Extremities Extremities: No deformity, Normal ROM s pain - Neuro 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 - Psych Psych: Normal mood, Normal affect Results - Vitals Vitals: Vital Signs - 24 hr 08/18/18 08/18/18 08/18/18 20:40 21:27 22:33 Temperature 37.5 C Heart Rate 134 H 114 H 106 H Respiratory 16 16 18 Rate Blood Pressure 125/69 97/75 115/81 H O2 Saturation 99 100 97 08/18/18 22:52 Temperature Heart Rate 118 H Respiratory 16 Rate Blood Pressure 146/103 H O2 Saturation 100 Oxygen O2 Source Room air - Labs Labs: Laboratory Tests 08/18/18 08/18/18 08/18/18 20:44 21:15 21:15 WBC 5.6 RBC 4.65 L Hgb 13.8 L Hct 39.6 L MCV 85.3 MCH 29.8 MCHC 34.9 RDW 12.7 Plt Count 336 MPV 7.9 Neut # (Auto) 4.2 Lymph # (Auto) 1.2 L [place] # (Auto) 0.2 Eos # (Auto) 0.0 Baso # (Auto) 0.0 Absolute Nucleated RBC 0.00 Nucleated RBC % 0.0 Sodium 135 Potassium 3.9 Chloride 100 L Carbon Dioxide 26 Anion Gap 9.0 BUN 16 Creatinine 0.4 L Estimated GFR (MDRD) 274 Glucose 288 H POC Whole Bld Glucose 263 H Calcium 9.4 Magnesium 2.0 Total Bilirubin 0.6 AST 14 ALT 14 Alkaline Phosphatase 100 Total Protein 7.7 Albumin 4.1 Globulin 3.6 Albumin/Globulin Ratio 1.1 Lipase 22 Serum Ketones 08/18/18 08/18/18 21:15 23:11 WBC RBC Hgb Hct MCV MCH MCHC RDW Plt Count MPV Neut # (Auto) Lymph # (Auto) [place] # (Auto) Eos # (Auto) Baso # (Auto) Absolute Nucleated RBC Nucleated RBC % Sodium Potassium Chloride Carbon Dioxide Anion Gap BUN Creatinine Estimated GFR (MDRD) Glucose POC Whole Bld Glucose 209 H Calcium Magnesium Total Bilirubin AST ALT Alkaline Phosphatase Total Protein Albumin Globulin Albumin/Globulin Ratio Lipase Serum Ketones NEGATIVE PD MEDICAL DECISION MAKING - ED course Complexity details: reviewed results, re-evaluated patient, considered differential (Gastritis, pancreatitis, gastroparesis, chronic pain, DKA, dehydration), d/w patient ED course: 2117 patient is requesting for pain medication. We will try Toradol as that was given last time he was here. 2199 patient requesting for pain medication and he stated that the last time he received pain medication called Dilaudid it is the only one that helps him. I informed patient that we will not give him any narcotics in the ER. He agreed to have x-ray instead of a CT scan.I will give him Reglan and Benadryl for his nausea. 14 patient had been quiet and sleeping the past 2 hours. When I went to his room patient is in no acute distress while he was awake. He still states that he wants some pain medication. I told him he will not be given any narcotic or pain medication. He did say that the Benadryl help and is requesting for another dose prior to discharge. He said he is slightly nauseous. We will give him Zofran And that her dose of Benadryl. He will then call a friend to pick him up. Patient was instructed to make sure he gets the prescribed Reglan that was given to him the other day. Instructed to follow-up with his primary doctor for reevaluation and referral to a GI doctor. Departure - Departure Disposition: 01 Home, Self Care Clinical Impression: Cyclical vomiting without nausea, not intractable Condition: Stable Instructions: ED Abdominal Pain Unkn Cause, ED Diet Vomiting Diarrhea Comments: Clear liquids today. If tolerate advance to brat diet (bananas, rice, applesauce, toast or crackers). Drink and eat in small amounts but frequently. Take the prescribed Reglan for your nausea. Call your primary doctor tomorrow for reevaluation and referral to a GI doctor. Or To consider a referral to a specialist who can prescribe you medical marijuana For Your cyclical nausea And vomiting. If worse return to the emergency room.
[2018-08-18 21:30] LABS: BASOPHILS % (AUTO) 0.8 %; EOSINOPHILS % (AUTO) 0.4 %; HGB - HEMOGLOBIN 13.8 g/dL (14.0-18.0); LYMPHOCYTES # (AUTO) 1.2 10^3/uL (1.5-3.5); LYMPHOCYTES % (AUTO) 20.7 %; MEAN CORPUSCULAR HEMOGLOBIN 29.8 pg (27.0-31.0); MEAN CORPUSCULAR HGB CONC 34.9 g/dL (32.0-36.0); MEAN CORPUSCULAR VOLUME 85.3 fL (80.0-94.0); MEAN PLATELET VOLUME 7.9 fL (7.4-11.4); MONOCYTES # (AUTO) 0.2 10^3/uL (0.0-1.0); MONOCYTES % (AUTO) 3.5 %; NEUTROPHILS # (AUTO) 4.2 10^3/uL (1.5-6.6); NEUTROPHILS % (AUTO) 74.6 %; PLT - PLATELET COUNT 336 10^3/uL (130-450); RED BLOOD COUNT 4.65 10^6/uL (4.70-6.10); RED CELL DISTRIBUTION WIDTH 12.7 % (12.0-15.0); WHITE BLOOD COUNT 5.6 x10^3/uL (4.8-10.8)
[2018-08-18] MEDS ORDERED: SODIUM CHLORIDE 0.9% 1,000 ML IV ONE ×2 (21:30→22:24)
[2018-08-18 21:39] LABS: ALBUMIN 4.1 g/dL (3.2-5.5); ALBUMIN/GLOBULIN RATIO 1.1 (1.0-2.2); BILIRUBIN,TOTAL 0.6 mg/dL (0.2-1.0); CALCIUM 9.4 mg/dL (8.5-10.3); CREATININE 0.4 mg/dL (0.6-1.2); TOTAL PROTEIN 7.7 g/dL (6.7-8.2)
[2018-08-18] MEDS ORDERED: KETOROLAC 60 MG/2 ML VIAL IVP STA (21:39)
[2018-08-18] MEDS ORDERED: METOCLOPRAMIDE 10 MG/2 ML VIAL IVP STA (22:23)
[2018-08-18] MEDS ORDERED: diphenhydrAMINE INJ 50 MG/ML VIAL IVP STA (22:23)
--- NOTE | 2018-08-18 22:55 | XRAY Report ---
Reason: pain, n/v Procedure Date: 08/18/2018 Accession Number: [id number] / [id number] Procedure: XR - Abdomen Acute CPT Code: FULL RESULT: EXAM: ABDOMINAL SERIES AND PA CHEST EXAM DATE: 08/18/2018 10:47 PM. CLINICAL HISTORY: Pain, n/v. COMPARISON: ABDOMEN 1 VIEW 06/01/2018 8:39 AM. TECHNIQUE: 2 views abdomen and 1 view chest. FINDINGS: CHEST: Lungs/Pleura: No focal opacities. No effusion or pneumothorax. Mediastinum: Within exam limitations, cardiomediastinal contour is normal. ABDOMEN: Bowel Gas Pattern: Within normal limits. No dilated loops or abnormal fluid levels. Free Air: None. Other: None. IMPRESSION: Normal abdominal series (including 1-view chest). RADIA
[2018-08-19] MEDS ORDERED: diphenhydrAMINE INJ 50 MG/ML VIAL IVP STA (00:19)
[2018-08-19] MEDS ORDERED: ONDANSETRON 4 MG/2 ML VIAL IVP STA (00:19)
[2018-08-19] MEDS ORDERED: METOCLOPRAMIDE 10 MG/2 ML VIAL IVP STA (01:05)
[2018-08-19 03:36] LABS: BILIRUBIN,URINE NEGATIVE (NEGATIVE); GLUCOSE, URINE (UA) >=1000 mg/dL (NEGATIVE); KETONES,URINE (UA) >=80 mg/dL (NEGATIVE); LEUKOCYTE ESTERASE, URINE NEGATIVE (NEGATIVE); NITRITE,URINE NEGATIVE (NEGATIVE); OCCULT BLOOD,URINE NEGATIVE (NEGATIVE); PH,URINE 6.5 PH (5.0-7.5); PROTEIN,URINE NEGATIVE (NEGATIVE); UROBILINOGEN,URINE 0.2 (NORMAL) E.U./dL (NORMAL)
[2018-08-19 03:43] LABS: CLARITY,URINE CLEAR (CLEAR)
[2018-08-19] MEDS ORDERED: HYDROcod/ACETAM 5/325 MG TABLET PO PRN (05:26)
[2018-08-19] MEDS ORDERED: ACETAMINOPHEN 325 MG TABLET PO PRN (05:26)
[2018-08-19] MEDS ORDERED: INSULIN GLARGINE 300 UNIT/3 ML PEN SUBQ SCH ×2 (06:00→21:00)
[2018-08-19] MEDS ORDERED: SODIUM CHLORIDE 0.9% 1,000 ML IV SCH (06:00)
[2018-08-19] MEDS: METOCLOPRAMIDE 10 MG/2 ML VIAL IVP SCH ×4 (06:08→23:54)
[2018-08-19] MEDS: SODIUM CHLORIDE FLUSH 0.9% 10 ML SYRINGE IVP PRN (06:08)
[2018-08-19] MEDS: KETOROLAC 15 MG/ML VIAL IVP PRN ×2 (06:09→11:47)
[2018-08-19 06:16] LABS: HEMOGLOBIN A1C 1.58 g/dL; HEMOGLOBIN A1C % 11.8 % (4.6-6.2)
[2018-08-19 07:05] LABS: CALCIUM 8.9 mg/dL (8.5-10.3); CREATININE 0.6 mg/dL (0.6-1.2)
--- NOTE | 2018-08-19 07:08 | HISTORY & PHYSICAL EXAMINATION ---
DATE OF SERVICE: 08/19/2018 Physician: Ginette Blake MD CHIEF COMPLAINT: Intractable nausea and vomiting. HISTORY OF PRESENT ILLNESS: Patient is a 18-year-old male with past medical history of type 1 diabetes with complications, who frequently presents to the emergency room and gets admitted to the hospital at least once a month. He has history of cannabinoid use, noncompliance with his medications and described having gastroparesis; however, with negative gastric emptying study in the past. He came to the ER a couple of days ago, at which time he was discharged after getting IV hydration and symptom control. Subsequently, he returned again on the evening of August 18, with intractable nausea and vomiting. He had stable vital signs and unremarkable laboratories. His blood glucose was in the 200 range. Besides nausea and vomiting, he stated that he was running out of insulin. Given unremarkable laboratories and hemodynamic stability, several attempts were made to control patient's symptoms with the goal of discharging him from the ER. He received IV hydration. He received Zofran, Reglan, Benadryl, Toradol. Regardless, he continued vomiting intractably; therefore, admission was requested for symptom control. When I interviewed the patient, he reported having a small skin wound on the back of his head. Reported unbearable abdominal pain, nausea and vomiting. No other change in his usual health. He did not report any trigger to his symptoms, stated that these were his usual symptoms with "gastroparesis". PAST MEDICAL HISTORY 1. Type 1 diabetes with complications of nausea, vomiting, gastroparesis, neuropathy, neurogenic bladder and chronic abdominal pain. 2. History of noncompliance. 3. Cannabinoid use, possibly contributing to cannabinoid-induced hyperemesis. 4. Depression. 5. Malnutrition. OUTPATIENT MEDICATIONS Included: 1. Prozac. 2. 40 units of Lantus insulin plus sliding scale. DIAGNOSTIC WORKUP: Reviewed per ER record. FAMILY HISTORY: Positive for type 2 diabetes. SOCIAL HISTORY: Patient smokes cannabinoid. Denied recent use. He used to work at [employer] in the [employer], but most recently has not been working. REVIEW OF SYSTEMS: Please see pertinent positives listed above at history of present illness. Patient was a poor historian. He was not very interactive, constantly complained about abdominal pain. Other than that, did not describe his symptoms very much. I attempted 12-point review, which was negative other than the symptoms listed at history of present illness. PHYSICAL EXAMINATION VITAL SIGNS: Temperature 96.8, heart rate 112, blood pressure 140/90, respiratory rate 16, oxygen saturation 100% on room air. GENERAL: Patient is a well-developed, young male who was resting comfortably before I entered his room in the ER; however, immediately as I entered he started to grab his abdomen, move around in the bed restlessly, complaining of abdominal pain. SKIN: With a small superficial wound on the back of the head on the scalp. Mild pallor. No jaundice. CARDIOVASCULAR: S1, S2 regular. Tachycardia. RESPIRATORY: Clear to auscultation. No wheezes, no crackles. ABDOMEN: Bowel tones active. Voluntary guarding. LYMPHATIC: No lymphedema. MUSCULOSKELETAL: Atraumatic. NEUROLOGIC: Alert, oriented, nonfocal. PSYCHIATRIC: The patient was restless while I was in the room. ASSESSMENT AND PLAN 1. Patient is a 18-year-old male who is getting admitted with intractable nausea and vomiting. He stayed in the ER for over 8 hours and his symptoms did not get under control; therefore, he is getting admitted under observation with the diagnosis of chronic abdominal pain exacerbated by nausea, vomiting, possibly gastroparesis. Additional issue is hyperglycemia with blood glucose above 200, which will need to be treated, although would not by itself require hospitalization. Notably, the patient states that he is running out of insulin and I suspect noncompliance. 2. Minor electrolyte abnormalities, including hyponatremia. 3. Small scalp wound. PLAN AND ORDERS 1. We will continue symptom management. We will avoid using opiates. I ordered Bentyl, but other than that, I will avoid IV morphine, Dilaudid or oral oxycodone-like medications. We will treat gastroparesis with Toradol, Reglan, Zofran and Compazine. 2. For the small wound on the scalp, we will use Bactroban. I do not think it would warrant IV antibiotic. Might use po ABx when patient stops vomiting if the topical ointment does not work. 3. Continue Prozac for depression. 4. IV hydration. 5. Diabetic control with home dose Lantus plus insulin sliding scale. In addition, I will add 10 units of extra Lantus this morning, as patient did not take his Lantus last night and he would likely be hyperglycemic throughout the day. I expect 24-48 hours hospitalization. Therefore, patient is getting admitted under observation. Time spent on the care of this patient is 50 minutes. TD: 08/19/2018 06:42 MELISSA
[2018-08-19 07:09] LABS: MAGNESIUM 1.9 mg/dL (1.7-2.8)
[2018-08-19] MEDS: SODIUM CHLORIDE FLUSH 0.9% 10 ML SYRINGE IVP SCH ×4 (08:17→23:54)
[2018-08-19] MEDS: POLYETHYLENE GLYCOL 3350 17 GM PACKET PO SCH (08:56)
[2018-08-19] MEDS: ONDANSETRON 4 MG/2 ML VIAL IVP PRN (08:56)
[2018-08-19] MEDS: FLUoxetine 10 MG CAPSULE PO SCH (08:56)
[2018-08-19] MEDS: MUPIROCIN 2% OINT 1 GM NAS SCH ×2 (08:56→21:49)
[2018-08-19] MEDS: FAMOTIDINE 20 MG/50 ML 50 ML IV SCH ×2 (08:57→21:48)
[2018-08-19] MEDS ORDERED: FLUOXETINE HCL 20 MG PO SCH (09:00)
[2018-08-19] MEDS: INSULIN ASPART 300 UNIT/3 ML PEN SUBQ SCH ×4 (09:10→21:33)
[2018-08-19] MEDS: SODIUM CHLORIDE 0.9% 1,000 ML IV SCH ×3 (09:34→20:41)
[2018-08-19 11:30] LABS: VBG PCO2 30.5 mmHg (41-51); VBG PH 7.332 (7.31-7.41)
[2018-08-19 11:31] LABS: VBG BASE EXCESS -8.9 mmol/L (-2 - +2); VBG PO2 52.8 mmHg (25-47); VBG TOTAL CO2 16.7 mmol/L (24-29)
[2018-08-19] MEDS: GI COCKTAIL 120 ML BOTTLE PO PRN (12:11)
[2018-08-20] MEDS: DICYCLOMINE 10 MG CAPSULE PO PRN ×2 (00:01→12:13)
[2018-08-20] MEDS: KETOROLAC 15 MG/ML VIAL IVP PRN ×2 (04:35→11:00)
[2018-08-20] MEDS: ONDANSETRON 4 MG/2 ML VIAL IVP PRN ×2 (04:45→11:01)
[2018-08-20] MEDS: SODIUM CHLORIDE FLUSH 0.9% 10 ML SYRINGE IVP SCH (04:45)
[2018-08-20 05:18] LABS: CALCIUM 8.4 mg/dL (8.5-10.3); CREATININE 0.6 mg/dL (0.6-1.2)
[2018-08-20] MEDS: METOCLOPRAMIDE 10 MG/2 ML VIAL IVP SCH ×2 (05:45→11:01)
[2018-08-20] MEDS: SODIUM CHLORIDE FLUSH 0.9% 10 ML SYRINGE IVP PRN ×10 (05:45→13:22)
[2018-08-20] MEDS ORDERED: diphenhydrAMINE INJ 50 MG/ML VIAL IVP PRN (06:01)
[2018-08-20] MEDS ORDERED: PROMETHAZINE INJ 25 MG in SODIUM CHLORIDE 0.9% 50 ML IV PRN (06:02)
[2018-08-20] MEDS: PROCHLORPERAZINE 10 MG/2 ML VIAL IVP PRN ×2 (06:45→13:21)
[2018-08-20] MEDS: GI COCKTAIL 120 ML BOTTLE PO PRN (07:00)
[2018-08-20 07:36] VITALS: BP 146/84
[2018-08-20] MEDS ORDERED: NS W/40 MEQ KCL 1,000 ML IV SCH (08:00)
[2018-08-20] MEDS ORDERED: POTASSIUM CHLORIDE 20 MEQ TABLET PO SCH (08:37)
--- NOTE | 2018-08-20 08:38 | Discharge Plan ---
Discharge Plan Disposition: 01 Home, Self Care Condition: Stable Diet: Diabetic Activity Restrictions: Activity as Tolerated Shower Restrictions: No Additional Instructions or Follow Up instructions: Resume your pre-hospital medications. You need to have better cleanliness and hygiene. Start taking a shower more often. No Smoking: If you smoke, Please STOP! Call for help. Follow-up with: Ailin Kumar DNP [Primary Care Provider] -
[2018-08-20] MEDS: INSULIN ASPART 300 UNIT/3 ML PEN SUBQ SCH ×2 (08:50→12:12)
[2018-08-20] MEDS: FAMOTIDINE 20 MG/50 ML 50 ML IV SCH (08:51)
[2018-08-20] MEDS: FLUoxetine 10 MG CAPSULE PO SCH ×2 (08:51→09:06)
[2018-08-20] MEDS: POLYETHYLENE GLYCOL 3350 17 GM PACKET PO SCH (08:58)
[2018-08-20] MEDS: MUPIROCIN 2% OINT 1 GM NAS SCH (11:01)
--- NOTE | 2018-08-23 17:20 | DISCHARGE SUMMARY ---
Physician: Zoie Barakat MD DATE OF ADMISSION: 08/19/2018 DATE OF DISCHARGE: 08/20/2018 HISTORY OF PRESENT ILLNESS: This is a 18-year-old male with a history of type 1 diabetes on insulin, noncompliance, frequent emergency room visits more than once a month for abdominal pain and frequent admissions for nausea, vomiting, occasional DKA, has diabetic gastroparesis, diabetic neurogenic bladder, cannabinoid use and depression. The patient presented again with complaints of nausea, vomiting and was felt to be dehydrated and with electrolyte abnormalities and complaining of pain and was placed in Observation status for management of his diabetes, fluid status, electrolytes and his pain. HOSPITAL COURSE AND DISCHARGE DIAGNOSES 1. Intractable nausea and vomiting. The patient occasionally stops taking his Reglan, prescribed before meals and at bedtime, and here he was restarted on scheduled Reglan and additional p.r.n. IV Reglan and his symptoms abated in less than 24 hours. He was able to take a solid diet. He was discharged to be resumed on his same medications. A component of this recurrence of intractable nausea and vomiting is cannaboid hyperemesis. He has been advised multiple times to stop this habit. 2. Gastroparesis. Despite having a normal gastric emptying study 11 months ago, his recurrent presentations and management are consistent with diabetic gastroparesis. 3. Type 1 diabetes, poor control. The patient has noncompliance. He was managed with sliding scale insulin coverage as well as his Lantus insulin while here. 4. Depression. The patient was kept on his Prozac while here. The dose has been increased recently. One month after it was first started, he reported benefit. However, more recently, his behavior suggests that he once again has abnormal depressed mood. There were 2 episodes during this admission where drug seeking behavior was highly suspected. The first was in the ER when he was seen from a distance and appeared comfortable, lying on the gurney, but as soon as the admitting Hospitalist walked up to his bedside, he grabbed to abdomen and started moaning in pain. The second episode occurred on the day of discharge when he refused to be discharged because of stating that he had abdominal pain but when I went to examine him, he was sleeping quietly then stretching out comfortably and yawning and had just been seen by the nurse to be texting on his cell phone. He had no appearance of being in pain despite asking specifically for iv Dilaudid for pain control. Psychiatric management is advised for this young man. 5. Neurogenic bladder. The patient has had need for straight cath. His bladder capacity is increased. He occasionally can urinate 700 to 1000 mL at a time. ALLERGIES: NONE. MEDICATIONS AT THE TIME OF DISCHARGE: 1. Prozac 40 mg daily. 2. NovoLog insulin 5 units subcutaneous t.i.d. with meals. 3. Lantus SoloSTAR insulin 40 units subcutaneous daily in the evening. 4. Reglan 10 mg p.o. before meals and at bedtime. LABORATORY AND IMAGING: Reviewed and summarized above. PHYSICAL EXAMINATION VITAL SIGNS: Blood pressure 148/84, heart rate 97, afebrile, room air saturation 97%. HEENT: Moist oral mucosa. NECK: No JVD. CHEST: Clear. HEART: Sounds normal. ABDOMEN: Soft, no tenderness. EXTREMITIES: Without clubbing, cyanosis, or edema. NEUROLOGIC: Intact. FOLLOWUP: He is advised to be compliant with followups to his PCP. CODE STATUS: FULL CODE. Time to complete this discharge is 30 minutes. cc: JUAN Nicolas TD: 08/23/2018 16:43 MTDD
== END 2018-08-20 14:40 | disposition home or self-care (01) ==
LOC: ED 20:34 → MS3 08-19 05:26
PROVIDERS: ADMIT Internal Medicine; ATTEND Internal Medicine
DX: E10.43 Type 1 diabetes mellitus with diabetic autonomic (poly)neuropathy (principal); K31.84 Gastroparesis; T45.0X6A Underdosing of antiallergic and antiemetic drugs, initial encounter; K31.89 Other diseases of stomach and duodenum; R11.2 Nausea with vomiting, unspecified; F12.988 Cannabis use, unspecified with other cannabis-induced disorder; G89.29 Other chronic pain; E87.1 Hypo-osmolality and hyponatremia; S00.00XA Unspecified superficial injury of scalp, initial encounter; X58.XXXA Exposure to other specified factors, initial encounter; E10.65 Type 1 diabetes mellitus with hyperglycemia; E10.42 Type 1 diabetes mellitus with diabetic polyneuropathy; E10.69 Type 1 diabetes mellitus with other specified complication; N31.9 Neuromuscular dysfunction of bladder, unspecified; F32.9 Major depressive disorder, single episode, unspecified; Z79.4 Long term (current) use of insulin; Z79.899 Other long term (current) drug therapy
CPT/HCPCS: 36415; 51701; 51798; 74022; 80048; 80053; 81003; 82009; 82803; 83036; 83690; 83735; 84100; 85025; 96361; 96365; 96366; 96368; 96375; 96376; 99284; 99285; A9270; G0378; J1200; J1815; J2765; J7040; 81001; 87081; 87086

== ENCOUNTER 2018-08-20 22:55 | Outpatient (CLI) | payer MEDICAID | END 2018-08-20 22:56 | disposition critical access hospital (66) | LOC: EMS 22:55 | PROVIDERS: ATTEND Surgery | DX: R11.2 Nausea with vomiting, unspecified (principal); R10.9 Unspecified abdominal pain | CPT/HCPCS: A0425; A0427 ==

== ENCOUNTER 2018-08-21 00:12 | Emergency (ER) | payer MEDICAID ==
--- NOTE | 2018-08-21 01:04 | ED Physician Documentation ---
PD HPI NVD - Stated complaint Stated Complaint: N/V - History obtained from History obtained from: Patient - History of Present Illness Timing - onset: How many days ago Timing - duration: Days (has been ill for few days and was in hospital for 2 days, just discharged this morning but not completely better, per patient. Has similar symptoms often.) Timing - details: Gradual onset, Still present, Still present in ED Associated symptoms: Abdominal pain, Other (repetitive nausea and vomiting. No diarrhea.). No: Fever Contributing factors: Diabetes. No: Sick contact, Bad food, Recent antibiotics Improved by: Vomiting Worsened by: Eating Similar symptoms before: Diagnosis (sometimes DKA and more often cyclic vomiting/gastroparesis. Patient says his sugars were okay earlier today after discharged.) Recently seen: Emergency Dept, Admitted (2 days ago for intractable vomiting, without DKA/diabetic problem. Was in hospital until this morning. Discharged improved though patient says he was not feeling completely better at time of discharge.) Review of Systems Constitutional: denies: Fever, Chills Nose: reports: Rhinorrhea / runny nose (when vomits, not regularly). denies: Congestion Throat: denies: Sore throat Cardiac: denies: Chest pain / pressure Respiratory: denies: Dyspnea, Cough GI: reports: Abdominal Pain (uper abd), Nausea, Vomiting. denies: Constipation, Diarrhea, Hematemesis : denies: Dysuria, Frequency Neurologic: denies: Near syncope, Confused, Headache PD PAST MEDICAL HISTORY - Past Medical History Cardiovascular: None Respiratory: None Neuro: Peripheral neuropathy Endocrine/Autoimmune: Type 1 diabetes GI: Other : None HEENT: None Psych: Depression, Anxiety Musculoskeletal: None Derm: None - Past Surgical History Past Surgical History: No - Present Medications Home Medications: Ambulatory Orders Medication Instructions Recorded Confirmed Fluoxetine HCl [Prozac] 40 mg PO DAILY #30 capsule 08/20/18 Insulin Aspart [NovoLOG] 5 unit SUBQ TIDWM #3 pen 08/20/18 Insulin Glargine [Lantus Solostar] 40 unit SUBQ DAILY PM #4 pen 08/20/18 Metoclopramide [Reglan] 10 mg PO Q6H PRN #30 tablet 08/20/18 - Allergies Allergies/Adverse Reactions: Allergies Allergy/AdvReac Type Severity Reaction Status Date / Time No Known Drug Allergies Allergy Verified 08/18/18 20:44 - Social History Does the pt smoke?: No Smoking Status: Current every day smoker Does the pt drink ETOH?: Yes Does the pt have substance abuse?: No - Immunizations Immunizations are current?: Yes - POLST Patient has POLST: No POLST Status: Full Code PD ED PE NORMAL - Vitals Vital signs reviewed: Yes - General General: Alert and oriented X 3, Well developed/nourished, Other (appears nauseated and holding emesis bag. ) - HEENT HEENT: Ears normal, Pharynx benign. No: Moist mucous membranes - Neck Neck: Supple, no meningeal sign, No adenopathy - Cardiac Cardiac: RRR, No murmur - Respiratory Respiratory: Clear bilaterally - Abdomen Abdomen: Normal bowel sounds, Soft, Non distended, No organomegaly, Other (tender upper abd/epigastric area. ) - Derm Derm: Normal color, Warm and dry Results - Vitals Vitals: Vital Signs - 24 hr 08/21/18 08/21/18 08/21/18 00:30 02:01 03:00 Temperature 99 C H Heart Rate 121 H 114 H 118 H Respiratory 16 16 16 Rate Blood Pressure 136/100 H 137/102 H 136/100 H O2 Saturation 100 100 100 08/21/18 08/21/18 03:09 05:41 Temperature Heart Rate 118 H 129 H Respiratory 16 16 Rate Blood Pressure 140/99 H 127/81 H O2 Saturation 99 99 Oxygen O2 Source Room air - Labs Labs: Laboratory Tests 08/21/18 08/21/18 01:29 01:29 WBC 10.3 RBC 4.43 L Hgb 12.9 L Hct 38.3 L MCV 86.3 MCH 29.1 MCHC 33.7 RDW 12.6 Plt Count 287 MPV 7.4 Neut # (Auto) 9.3 H Lymph # (Auto) 0.7 L [place] # (Auto) 0.3 Eos # (Auto) 0.0 Baso # (Auto) 0.0 Absolute Nucleated RBC 0.00 Nucleated RBC % 0.0 Sodium 136 Potassium 3.6 Chloride 105 Carbon Dioxide 20 L Anion Gap 11.0 BUN 13 Creatinine 0.5 L Estimated GFR (MDRD) 212 Glucose 174 H Calcium 8.4 L Magnesium 1.9 Total Bilirubin 0.9 AST 14 ALT 12 Alkaline Phosphatase 84 Total Protein 7.0 Albumin 3.4 Globulin 3.6 Albumin/Globulin Ratio 0.9 L Lipase 17 L PD MEDICAL DECISION MAKING - ED course Complexity details: re-evaluated patient (Less nauseous and belly pain after medications. He slept and rested for couple of hours. He took a couple of sips of fluids. He states he still has a little bit of nausea. 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 He has not had any further vomiting after medications. I think he can be discharged at this time and is safe for discharge.), considered differential (cyclic vomiting/gastroparesis vs. DKA vs. other cause, such as pancreatitis/ ulcer/ gastritis.), d/w patient Departure - Departure Clinical Impression: Intractable nausea and vomiting Qualifiers: Vomiting type: cyclical vomiting Qualified Code(s): G43.A1 - Cyclical vomiting, intractable Condition: Stable Record reviewed to determine appropriate education?: Yes Instructions: ED Nausea Vomiting Follow-Up: Ailin Kumar DNP [Primary Care Provider] - Comments: Get the medications that you were prescribed yesterday at discharge from the hospital. Small frequent fluids today. Nausea medicine as needed. Return if worse again.
[2018-08-21] MEDS ORDERED: SODIUM CHLORIDE 0.9% 1,000 ML IV ONE ×2 (01:18→02:57)
[2018-08-21] MEDS ORDERED: FAMOTIDINE 20 MG/2 ML VIAL IVP STA (01:20)
[2018-08-21] MEDS ORDERED: diphenhydrAMINE INJ 50 MG/ML VIAL IVP STA (01:20)
[2018-08-21] MEDS ORDERED: KETOROLAC 15 MG/ML VIAL IVP STA (01:20)
[2018-08-21] MEDS ORDERED: HALOPERIDOL 5 MG/ML VIAL IVP ONE ×2 (01:25→04:15)
[2018-08-21 01:37] LABS: BASOPHILS % (AUTO) 0.2 %; HGB - HEMOGLOBIN 12.9 g/dL (14.0-18.0); LYMPHOCYTES # (AUTO) 0.7 10^3/uL (1.5-3.5); LYMPHOCYTES % (AUTO) 6.4 %; MEAN CORPUSCULAR HEMOGLOBIN 29.1 pg (27.0-31.0); MEAN CORPUSCULAR HGB CONC 33.7 g/dL (32.0-36.0); MEAN CORPUSCULAR VOLUME 86.3 fL (80.0-94.0); MEAN PLATELET VOLUME 7.4 fL (7.4-11.4); MONOCYTES # (AUTO) 0.3 10^3/uL (0.0-1.0); NEUTROPHILS # (AUTO) 9.3 10^3/uL (1.5-6.6); NEUTROPHILS % (AUTO) 90.4 %; PLT - PLATELET COUNT 287 10^3/uL (130-450); RED BLOOD COUNT 4.43 10^6/uL (4.70-6.10); RED CELL DISTRIBUTION WIDTH 12.6 % (12.0-15.0); WHITE BLOOD COUNT 10.3 x10^3/uL (4.8-10.8)
[2018-08-21 01:49] LABS: ALBUMIN 3.4 g/dL (3.2-5.5); ALBUMIN/GLOBULIN RATIO 0.9 (1.0-2.2); BILIRUBIN,TOTAL 0.9 mg/dL (0.2-1.0); CALCIUM 8.4 mg/dL (8.5-10.3); CREATININE 0.5 mg/dL (0.6-1.2); MAGNESIUM 1.9 mg/dL (1.7-2.8)
[2018-08-21] MEDS ORDERED: ONDANSETRON 4 MG/2 ML VIAL IVP STA (04:15)
[2018-08-21] MEDS ORDERED: DICYCLOMINE 10 MG CAPSULE PO STA (05:53)
[2018-08-21] MEDS ORDERED: ACETAMINOPHEN 1,000 MG/100 ML 100 ML IV STA (05:53)
[2018-08-21 07:46] VITALS: BP 127/86
== END 2018-08-21 07:46 | disposition home or self-care (01) ==
LOC: EDUNIT# → ED 00:12
DX: G43.A1 Cyclical vomiting, in migraine, intractable (principal); E10.42 Type 1 diabetes mellitus with diabetic polyneuropathy; F17.200 Nicotine dependence, unspecified, uncomplicated
CPT/HCPCS: 36415; 80053; 83690; 83735; 85025; 96361; 96365; 96375; 96376; 99283; 99284; A9270; J0131; J1200

== ENCOUNTER 2018-08-22 10:55 | Outpatient (CLI) | payer MEDICAID | END 2018-08-22 10:56 | disposition critical access hospital (66) | LOC: EMS 10:55 | PROVIDERS: ATTEND Surgery | DX: R53.1 Weakness (principal); R11.2 Nausea with vomiting, unspecified; R10.10 Upper abdominal pain, unspecified | CPT/HCPCS: A0425; A0427; A0999 ==

== ENCOUNTER 2018-08-22 11:16 | Emergency (ER) | payer MEDICAID ==
[2018-08-22] MEDS ORDERED: SODIUM CHLORIDE 0.9% 2,000 ML IV ONE (11:24)
[2018-08-22] MEDS ORDERED: HALOPERIDOL 5 MG/ML VIAL IVP STA (11:25)
--- NOTE | 2018-08-22 11:33 | ED Physician Documentation ---
History of Present Illness - Stated complaint Stated Complaint: N/V - Chief complaint Chief Complaint: General - Additonal information Additional information: hx from pt and EMR 18 y/o m IDDM with gastroparesis and cyclic vomiting does use marijuana freq ED visits from [place] was seen in ED admitted dced and seen in ED again over the holiday weekend rx Reglan which he has not filled used some marijuana last night now sx are back no fever ] no diarrhea no bad food no travel no sick contacts Review of Systems Constitutional: denies: Fever Throat: denies: Sore throat Cardiac: denies: Chest pain / pressure GI: reports: Abdominal Pain, Nausea, Vomiting. denies: Diarrhea Endocrine: denies: Easy bruising / bleeding Immunocompromised: denies: Immunocompromised PD PAST MEDICAL HISTORY - Past Medical History Cardiovascular: None Respiratory: None Neuro: Peripheral neuropathy Endocrine/Autoimmune: Type 1 diabetes GI: Other : None HEENT: None Psych: Depression, Anxiety Musculoskeletal: None Derm: None - Past Surgical History Past Surgical History: No - Present Medications Home Medications: Ambulatory Orders Medication Instructions Recorded Confirmed Fluoxetine HCl [Prozac] 40 mg PO DAILY #30 capsule 08/20/18 Insulin Aspart [NovoLOG] 5 unit SUBQ TIDWM #3 pen 08/20/18 Insulin Glargine [Lantus Solostar] 40 unit SUBQ DAILY PM #4 pen 08/20/18 Metoclopramide [Reglan] 10 mg PO Q6H PRN #30 tablet 08/20/18 - Allergies Allergies/Adverse Reactions: Allergies Allergy/AdvReac Type Severity Reaction Status Date / Time No Known Drug Allergies Allergy Verified 08/18/18 20:44 - Social History Does the pt smoke?: No Smoking Status: Current every day smoker Does the pt drink ETOH?: Yes Does the pt have substance abuse?: No - Immunizations Immunizations are current?: Yes - POLST Patient has POLST: No POLST Status: Full Code PD ED PE NORMAL - Vitals Vital signs reviewed: Yes - Cardiac Cardiac: RRR - Respiratory Respiratory: No respiratory distress, Clear bilaterally - Abdomen Abdomen: Soft, Non tender (TTP LUQ s peritoneal sx) - Derm Derm: Normal color - Neuro 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 Results - Vitals Vitals: Vital Signs - 24 hr 11/26/18 11/26/18 11/26/18 11:20 13:43 14:38 Temperature 36.9 C Heart Rate 114 H 102 H 110 H Respiratory 16 18 16 Rate Blood Pressure 153/101 H 140/91 H 134/85 H O2 Saturation 100 100 100 08/22/18 08/22/18 16:19 17:27 Temperature Heart Rate 121 H 112 H Respiratory 16 14 Rate Blood Pressure 138/96 H 142/102 H O2 Saturation 100 100 Oxygen O2 Source Room air - Tele (time rhythm occurred) 1600 Telemetry / rhythm strip: Other (sinus tach nl QT after meds) - Labs Labs: Laboratory Tests 08/22/18 08/22/18 11:30 11:30 VBG pH 7.372 VBG pCO2 40.8 L VBG pO2 32.6 VBG HCO3 23.2 VBG Total CO2 24.4 VBG O2 Saturation 67.8 VBG Base Excess -1.9 Sodium 135 Potassium 3.8 Chloride 101 Carbon Dioxide 21 Anion Gap 13.0 BUN 11 Creatinine 0.6 Estimated GFR (MDRD) 172 Glucose 386 H Calcium 8.8 Serum Ketones SMALL H PD MEDICAL DECISION MAKING - ED course ED course: vomiting dehydarted + ketones elev glucose but not acidotic - not DKA no gap blood sugar better with IVF serial abd exams = unchanged mild diffuse TTP s peritoneal sx HR noted - chart review indicates this is typcial for the pt he is not hypotensive or febrile so doubt sepsis, got 3 L NS so not dehydrated, likely 2/2 sx will dc despite zofran from EMS haldol phenergal reglan benadryl and NS pt states he is not better and cannot go home states the only thing that will make him better so he can go is dilaudid so having exhausted all non narcotic attempts to dc pt will give a dose of dilaudid and dc so he can get to pharmacy before they close Departure - Departure Disposition: 01 Home, Self Care Clinical Impression: Dehydration Cyclical vomiting Qualifiers: Vomiting Intractability: non-intractable Nausea presence: unspecified Qualified Code(s): G43.A0 - Cyclical vomiting, not intractable Diabetes Qualifiers: Diabetes mellitus type: type 1 Diabetes mellitus complication status: with unspecified complications Qualified Code(s): E10.8 - Type 1 diabetes mellitus with unspecified complications Condition: Good Instructions: ED Dehydration Follow-Up: Kumar,Ailin J, DNP [Primary Care Provider] - Comments: Please fill the reglan you were previously prescribed Do not take zofran for 12 hr after getting haldol Drink plenty of fluids Watch your blood sugar and take your insulin as directed. Stop using marijuana Follow up with your PMD Return if worse
[2018-08-22 11:50] LABS: VBG BASE EXCESS -1.9 mmol/L (-2 - +2); VBG PCO2 40.8 mmHg (41-51); VBG PH 7.372 (7.31-7.41); VBG PO2 32.6 mmHg (25-47); VBG TOTAL CO2 24.4 mmol/L (24-29)
[2018-08-22 12:01] LABS: BUN - BLOOD UREA NITROGEN 11 mg/dL (6-20); CALCIUM 8.8 mg/dL (8.5-10.3); CARBON DIOXIDE - CO2 21 mmol/L (21-32); CHLORIDE 101 mmol/L (101-111); CREATININE 0.6 mg/dL (0.6-1.2); GFR - MDRD 172 (>89); GLUCOSE 386 mg/dL (70-100); SODIUM 135 mmol/L (135-145)
[2018-08-22] MEDS ORDERED: diphenhydrAMINE INJ 50 MG/ML VIAL IVP STA (12:07)
[2018-08-22 12:25] LABS: KETONES, SERUM (ACETEST) SMALL (NEGATIVE)
[2018-08-22] MEDS ORDERED: METOCLOPRAMIDE 10 MG TABLET PO STA (13:49)
[2018-08-22] MEDS ORDERED: METOCLOPRAMIDE 10 MG/2 ML VIAL IVP STA (13:57)
[2018-08-22] MEDS ORDERED: PROMETHAZINE INJ 25 MG in SODIUM CHLORIDE 0.9% 50 ML IV STA (15:06)
[2018-08-22] MEDS ORDERED: SODIUM CHLORIDE 0.9% 1,000 ML IV ONE (15:42)
[2018-08-22] MEDS ORDERED: HYDROmorphone 1 MG/ML CARPUJECT IVP STA (15:52)
[2018-08-22 18:27] VITALS: BP 128/86
== END 2018-08-22 18:27 | disposition home or self-care (01) ==
LOC: ED 11:16
DX: E86.0 Dehydration (principal); G43.A0 Cyclical vomiting, in migraine, not intractable; E10.43 Type 1 diabetes mellitus with diabetic autonomic (poly)neuropathy; K31.84 Gastroparesis; E10.42 Type 1 diabetes mellitus with diabetic polyneuropathy; Z79.4 Long term (current) use of insulin; R00.0 Tachycardia, unspecified; F12.90 Cannabis use, unspecified, uncomplicated; F17.200 Nicotine dependence, unspecified, uncomplicated
CPT/HCPCS: 36415; 80048; 82009; 82803; 96361; 96365; 96375; 99284; J1170; J1200; J2765; J7040

== ENCOUNTER 2018-08-23 11:52 | Outpatient (CLI) | payer MEDICAID | END 2018-08-23 11:53 | disposition critical access hospital (66) | LOC: EMS 11:52 | PROVIDERS: ATTEND Surgery | DX: R10.9 Unspecified abdominal pain (principal); R73.09 Other abnormal glucose; R11.0 Nausea | CPT/HCPCS: A0425; A0429; A0999 ==

== ENCOUNTER 2018-08-23 12:13 | Emergency (ER) | payer MEDICAID ==
[2018-08-23 13:47] LABS: BASOPHILS % (AUTO) 0.3 %; HGB - HEMOGLOBIN 13.7 g/dL (14.0-18.0); LYMPHOCYTES # (AUTO) 1.2 10^3/uL (1.5-3.5); LYMPHOCYTES % (AUTO) 8.7 %; MEAN CORPUSCULAR HEMOGLOBIN 28.5 pg (27.0-31.0); MEAN CORPUSCULAR HGB CONC 33.2 g/dL (32.0-36.0); MEAN PLATELET VOLUME 7.9 fL (7.4-11.4); MONOCYTES # (AUTO) 0.6 10^3/uL (0.0-1.0); PLT - PLATELET COUNT 335 10^3/uL (130-450); RED BLOOD COUNT 4.81 10^6/uL (4.70-6.10); RED CELL DISTRIBUTION WIDTH 12.8 % (12.0-15.0); WHITE BLOOD COUNT 13.9 x10^3/uL (4.8-10.8)
[2018-08-23 13:48] LABS: VBG BASE EXCESS -12.9 mmol/L (-2 - +2); VBG PCO2 27.4 mmHg (41-51); VBG PH 7.27 (7.31-7.41); VBG PO2 50.7 mmHg (25-47); VBG TOTAL CO2 13.1 mmol/L (24-29)
[2018-08-23 13:54] LABS: KETONES, SERUM (ACETEST) SMALL (NEGATIVE)
--- NOTE | 2018-08-23 13:54 | ED Physician Documentation ---
PD HPI ABD PAIN - Stated complaint Stated Complaint: ABD PX - Chief complaint Chief Complaint: Abd Pain - History obtained from History obtained from: Patient - History of Present Illness Timing - onset: Last night Timing - duration: Hours Timing - details: Gradual onset, Still present Quality: Sharp, Pain Location: Suprapubic Improved by: Laying still Worsened by: Moving, Breathing, Position, Palpation Associated symptoms: Nausea Similar symptoms before: Diagnosis (urinary retention) Recently seen: Emergency Dept - Additional information Additional information: 18-year-old type I diabetic with a history of cyclical vomiting and urinary retention has developed acute abdominal pain after being in the emergency department and given IV fluids. He comes to the emergency department with a distended bladder and severe pain. He has had issues with urinary retention previously. He states that he did try to get in and go to the bathroom and is not been able to urinate. Review of Systems Constitutional: reports: Fatigue. denies: Fever, Chills Eyes: denies: Decreased vision Ears: denies: Ear pain Nose: denies: Congestion Throat: denies: Sore throat Cardiac: denies: Chest pain / pressure, Palpitations Respiratory: denies: Dyspnea, Cough GI: reports: Abdominal Pain, Nausea, Vomiting : reports: Unable to Void. denies: Dysuria, Frequency Skin: denies: Rash Musculoskeletal: denies: Neck pain, Back pain, Extremity pain PD PAST MEDICAL HISTORY - Past Medical History Past Medical History: Yes Cardiovascular: None Respiratory: None Neuro: Peripheral neuropathy Endocrine/Autoimmune: Type 1 diabetes GI: Other : None HEENT: None Psych: Depression, Anxiety Musculoskeletal: None Derm: None - Past Surgical History Past Surgical History: No - Present Medications Home Medications: Ambulatory Orders Medication Instructions Recorded Confirmed RX: Fluoxetine HCl [Prozac] 40 mg PO DAILY #30 capsule 08/20/18 RX: Insulin Aspart [NovoLOG] 5 unit SUBQ TIDWM #3 pen 08/20/18 RX: Insulin Glargine [Lantus 40 unit SUBQ DAILY PM #4 pen 08/20/18 Solostar] RX: Metoclopramide [Reglan] 10 mg PO Q6H PRN #30 tablet 08/20/18 - Allergies Allergies/Adverse Reactions: Allergies Allergy/AdvReac Type Severity Reaction Status Date / Time No Known Drug Allergies Allergy Verified 08/18/18 20:44 - Social History Does the pt smoke?: No Smoking Status: Never smoker Does the pt drink ETOH?: Yes Does the pt have substance abuse?: No - Immunizations Immunizations are current?: Yes - POLST Patient has POLST: No POLST Status: Full Code PD ED PE NORMAL - Vitals Vital signs reviewed: Yes (tachy nad hypotensive ) - General General: Alert and oriented X 3, Well developed/nourished, Other (18 y/o male moaning and rolling in pain ) - HEENT HEENT: Atraumatic, PERRL, EOMI - Neck Neck: Supple, no meningeal sign, No bony TTP - Cardiac Cardiac: No murmur, Other (tachy to 115) - Respiratory Respiratory: No respiratory distress, Clear bilaterally - Abdomen Abdomen: Soft, Other (There is a tender palpable bladder in this thin young diabetic male ) - Back Back: No CVA TTP, No spinal TTP - Derm Derm: Normal color, Warm and dry, No rash - Extremities Extremities: No deformity, No edema - Neuro 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, 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, No motor deficit, No sensory deficit, Normal speech Eye Opening: Spontaneous Motor: Obeys Commands Verbal: Oriented GCS Score: 15 - Psych Psych: Normal mood, Normal affect Results - Vitals Vitals: Vital Signs - 24 hr 08/23/18 08/23/18 12:19 15:43 Temperature 36.5 C 36.6 C Heart Rate 112 H 131 H Respiratory 20 18 Rate Blood Pressure 98/50 L 103/66 O2 Saturation 100 100 Oxygen O2 Source Room air - Labs Labs: Laboratory Tests 08/23/18 08/23/18 08/23/18 13:33 13:33 13:33 WBC 13.9 H RBC 4.81 Hgb 13.7 L Hct 41.4 L MCV 86.0 MCH 28.5 MCHC 33.2 RDW 12.8 Plt Count 335 MPV 7.9 Neut # (Auto) 12.0 H Lymph # (Auto) 1.2 L [place] # (Auto) 0.6 Eos # (Auto) 0.0 Baso # (Auto) 0.0 Absolute Nucleated RBC 0.00 Nucleated RBC % 0.0 VBG pH 7.270 L VBG pCO2 27.4 L VBG pO2 50.7 H VBG HCO3 12.3 L VBG Total CO2 13.1 L VBG O2 Saturation 86.3 H VBG Base Excess -12.9 L Sodium 131 L Potassium 3.5 Chloride 101 Carbon Dioxide 13 L Anion Gap 17.0 H BUN 13 Creatinine 0.6 Estimated GFR (MDRD) 172 Glucose 226 H Calcium 9.1 Total Bilirubin 1.5 H AST 14 ALT 12 Alkaline Phosphatase 103 Total Protein 7.6 Albumin 4.0 Globulin 3.6 Albumin/Globulin Ratio 1.1 Lipase 17 L Urine Color Urine Clarity Urine pH Ur Specific [place] Urine Protein Urine Glucose (UA) Urine Ketones Urine Occult Blood Urine Nitrite Urine Bilirubin Urine Urobilinogen Ur Leukocyte Esterase Ur Microscopic Review Urine Culture Comments Serum Ketones SMALL H 08/23/18 13:33 WBC RBC Hgb Hct MCV MCH MCHC RDW Plt Count MPV Neut # (Auto) Lymph # (Auto) [place] # (Auto) Eos # (Auto) Baso # (Auto) Absolute Nucleated RBC Nucleated RBC % VBG pH VBG pCO2 VBG pO2 VBG HCO3 VBG Total CO2 VBG O2 Saturation VBG Base Excess Sodium Potassium Chloride Carbon Dioxide Anion Gap BUN Creatinine Estimated GFR (MDRD) Glucose Calcium Total Bilirubin AST ALT Alkaline Phosphatase Total Protein Albumin Globulin Albumin/Globulin Ratio Lipase Urine Color YELLOW Urine Clarity CLEAR Urine pH 6.5 Ur Specific [place] 1.025 Urine Protein NEGATIVE Urine Glucose (UA) 500 H Urine Ketones >=80 H Urine Occult Blood NEGATIVE Urine Nitrite NEGATIVE Urine Bilirubin NEGATIVE Urine Urobilinogen 0.2 (NORMAL) Ur Leukocyte Esterase NEGATIVE Ur Microscopic Review NOT INDICATED Urine Culture Comments NOT INDICATED Serum Ketones Procedures - IVC sono (time) 1400 Bedside IVC sono: IVC measures (cm) (1.85), Euvolemia PD MEDICAL DECISION MAKING - ED course Complexity details: reviewed old records, reviewed results, re-evaluated patient, considered differential, d/w patient ED course: 18-year-old male with acute abdominal pain nausea vomiting and urinary retention has a palpable tender bladder on arrival to the emergency department and 2500 mL's of urine drained from his bladder. He is found not to be in DKA today and has a normal volume by interrogation of the vena cava. IV fluids are not administered today he is given IV Dilaudid and Zofran as well as metoclopramide. His pain is much improved at the time of discharge and he refuses to have the [place] placed continuously. He has been able to force urination previously follo wing an episode similar to today. Departure - Departure Disposition: 01 Home, Self Care Clinical Impression: Neurogenic bladder, Urinary retention Condition: Stable Instructions: ED Retention Urinary Male Follow-Up: Ailin Kumar DNP [Primary Care Provider] - Discharge Date/Time: 08/23/18 15:45
[2018-08-23 13:56] LABS: BILIRUBIN,URINE NEGATIVE (NEGATIVE); GLUCOSE, URINE (UA) 500 mg/dL (NEGATIVE); KETONES,URINE (UA) >=80 mg/dL (NEGATIVE); LEUKOCYTE ESTERASE, URINE NEGATIVE (NEGATIVE); NITRITE,URINE NEGATIVE (NEGATIVE); OCCULT BLOOD,URINE NEGATIVE (NEGATIVE); PH,URINE 6.5 PH (5.0-7.5); PROTEIN,URINE NEGATIVE (NEGATIVE); UROBILINOGEN,URINE 0.2 (NORMAL) E.U./dL (NORMAL)
[2018-08-23 13:57] LABS: CLARITY,URINE CLEAR (CLEAR)
[2018-08-23] MEDS ORDERED: METOCLOPRAMIDE 10 MG/2 ML VIAL IVP STA (14:01)
[2018-08-23] MEDS ORDERED: ONDANSETRON 4 MG/2 ML VIAL IVP STA (14:01)
[2018-08-23] MEDS ORDERED: HYDROmorphone 1 MG/ML CARPUJECT IVP STA ×2 (14:01→14:36)
[2018-08-23 14:02] LABS: ALBUMIN/GLOBULIN RATIO 1.1 (1.0-2.2); ALKALINE PHOSPHATASE 103 IU/L (42-121); ALT ALANINE AMINOTRANSFERASE 12 IU/L (10-60); AST ASPARTATE AMINOTRANSFERASE 14 IU/L (10-42); BILIRUBIN,TOTAL 1.5 mg/dL (0.2-1.0); BUN - BLOOD UREA NITROGEN 13 mg/dL (6-20); CALCIUM 9.1 mg/dL (8.5-10.3); CARBON DIOXIDE - CO2 13 mmol/L (21-32); CHLORIDE 101 mmol/L (101-111); CREATININE 0.6 mg/dL (0.6-1.2); GFR - MDRD 172 (>89); GLUCOSE 226 mg/dL (70-100); LIPASE 17 U/L (22-51); SODIUM 131 mmol/L (135-145); TOTAL PROTEIN 7.6 g/dL (6.7-8.2)
--- NOTE | 2018-08-23 14:32 | ED Physician Documentation ---
ED Addendum - Addendum Addendum: 08/23/18 14:31 unscheduled return visit - chart accessed for follow up and educational purposes
[2018-08-23 15:44] VITALS: BP 103/66
== END 2018-08-23 15:45 | disposition home or self-care (01) ==
LOC: EDUNIT# → ED 12:13
DX: N31.9 Neuromuscular dysfunction of bladder, unspecified (principal); R33.9 Retention of urine, unspecified; E10.42 Type 1 diabetes mellitus with diabetic polyneuropathy
CPT/HCPCS: 36415; 51702; 51703; 80053; 81003; 82009; 82803; 83690; 85025; 96374; 96375; 96376; 99283; J1170; J2765; 81001; 87086

== ENCOUNTER 2018-08-24 03:05 | Outpatient (CLI) | payer MEDICAID | END 2018-08-24 03:06 | disposition critical access hospital (66) | LOC: EMS 03:05 | PROVIDERS: ATTEND Surgery | DX: R07.9 Chest pain, unspecified (principal); R11.2 Nausea with vomiting, unspecified | CPT/HCPCS: A0425; A0427; A0999 ==

== ENCOUNTER 2018-08-24 03:23 | Observation (INO) | payer MEDICAID ==
[2018-08-24] MEDS ORDERED: SODIUM CHLORIDE 0.9% 1,000 ML IV ONE ×2 (03:29→06:02)
--- NOTE | 2018-08-24 03:38 | ED Physician Documentation ---
PD HPI CHEST PAIN - Stated complaint Stated Complaint: CP, N/V - Chief complaint Chief Complaint: Cardiac - History obtained from History obtained from: Patient, EMS - History of Present Illness Timing - onset: How many days ago (2-3 days) Timing - details: Gradual onset, Waxing and waning Pain level max: 10 Pain level now: 10 Quality: Pain Location: Substernal Radiation: Other (does not radiate) Improved by: Nothing Worsened by: Other (no exacerbating factors) Associated symptoms: Nausea, Vomiting. No: Shortness of air Recently seen: Emergency Dept - Additional information Additional information: BIBA, c/o chest pain, nausea, and vomiting. He is very well known to this ED; has over 20 [facility] ED visits this year, which mostly involve nausea, vomiting, and pain c/o. Chest pain is not his typical complaint, and he says this chest pain started 2-3 days ago. He was in this ED 08/19 and admitted, discharged 08/20. He returned to ED 08/21, 08/12, 08/23, thus making [facility]'s ED visit his fourth visit in as many days. He says he did not fill the antinauseant he was recently prescribed because of "transportation issues" (per patient) and "I didn't have time to". Review of Systems Constitutional: reports: Reviewed and negative Eyes: reports: Reviewed and negative Ears: reports: Reviewed and negative Nose: reports: Reviewed and negative Throat: reports: Reviewed and negative Cardiac: reports: Chest pain / pressure. denies: Palpitations, Pedal edema, Calf pain Respiratory: reports: Reviewed and negative GI: reports: Nausea, Vomiting. denies: Abdominal Pain, Constipation, Diarrhea : denies: Dysuria, Frequency Skin: reports: Reviewed and negative Musculoskeletal: reports: Reviewed and negative Neurologic: reports: Reviewed and negative PD PAST MEDICAL HISTORY - Past Medical History Past Medical History: Yes Cardiovascular: None Respiratory: None Neuro: Peripheral neuropathy Endocrine/Autoimmune: Type 1 diabetes GI: Other : None HEENT: None Psych: Depression, Anxiety Musculoskeletal: None Derm: None - Past Surgical History Past Surgical History: No - Present Medications Home Medications: Ambulatory Orders Medication Instructions Recorded Confirmed Fluoxetine HCl [Prozac] 40 mg PO DAILY #30 capsule 08/20/18 Insulin Aspart [NovoLOG] 5 unit SUBQ TIDWM #3 pen 08/20/18 Insulin Glargine [Lantus Solostar] 40 unit SUBQ DAILY PM #4 pen 08/20/18 Metoclopramide [Reglan] 10 mg PO Q6H PRN #30 tablet 08/20/18 - Allergies Allergies/Adverse Reactions: Allergies Allergy/AdvReac Type Severity Reaction Status Date / Time No Known Drug Allergies Allergy Verified 08/24/18 03:35 - Social History Does the pt smoke?: No Smoking Status: Never smoker Does the pt drink ETOH?: Yes Does the pt have substance abuse?: No - Immunizations Immunizations are current?: Yes - POLST Patient has POLST: No POLST Status: Full Code PD ED PE NORMAL - Vitals Vital signs reviewed: Yes - General General: Alert and oriented X 3, No acute distress, Well developed/nourished - HEENT HEENT: Moist mucous membranes - Neck Neck: Supple, no meningeal sign - Cardiac Cardiac: No murmur - Respiratory Respiratory: No respiratory distress, Clear bilaterally - Abdomen Abdomen: Normal bowel sounds, Soft, Non tender - Back Back: No CVA TTP - Derm Derm: Normal color, Warm and dry - Extremities Extremities: No edema PD ED PE EXPANDED - Cardiac Cardiac: Tachy, Regular Rhythm Results - Vitals Vitals: Vital Signs - 24 hr 08/24/18 08/24/18 03:24 04:17 Temperature 36.7 C Heart Rate 129 H 120 H Respiratory 19 18 Rate Blood Pressure 163/101 H 146/98 H O2 Saturation 100 100 Oxygen O2 Source Room air - Labs Labs: Laboratory Tests 08/24/18 08/24/18 08/24/18 03:50 03:50 03:50 WBC 8.8 RBC 4.65 L Hgb 13.4 L Hct 40.4 L MCV 86.8 MCH 28.8 MCHC 33.2 RDW 12.8 Plt Count 336 MPV 7.3 L Neut # (Auto) 7.1 H Lymph # (Auto) 1.2 L [place] # (Auto) 0.5 Eos # (Auto) 0.0 Baso # (Auto) 0.1 Absolute Nucleated RBC 0.00 Nucleated RBC % 0.0 VBG pH VBG pCO2 VBG pO2 VBG HCO3 VBG Total CO2 VBG O2 Saturation VBG Base Excess Sodium 134 L Potassium 3.5 Chloride 107 Carbon Dioxide 11 L* Anion Gap 16.0 H BUN 13 Creatinine 0.7 Estimated GFR (MDRD) 144 Glucose 209 H Calcium 8.6 Total Bilirubin 1.3 H AST 12 ALT 12 Alkaline Phosphatase 99 Troponin I < 0.04 Total Protein 7.1 Albumin 3.8 Globulin 3.3 Albumin/Globulin Ratio 1.2 Lipase 16 L Serum Ketones 08/24/18 08/24/18 03:50 04:40 WBC RBC Hgb Hct MCV MCH MCHC RDW Plt Count MPV Neut # (Auto) Lymph # (Auto) [place] # (Auto) Eos # (Auto) Baso # (Auto) Absolute Nucleated RBC Nucleated RBC % VBG pH 7.270 L VBG pCO2 24.6 L VBG pO2 48.0 H VBG HCO3 11.0 L VBG Total CO2 11.8 L VBG O2 Saturation 87.8 H VBG Base Excess -14.0 L Sodium Potassium Chloride Carbon Dioxide Anion Gap BUN Creatinine Estimated GFR (MDRD) Glucose Calcium Total Bilirubin AST ALT Alkaline Phosphatase Troponin I Total Protein Albumin Globulin Albumin/Globulin Ratio Lipase Serum Ketones MODERATE H PD MEDICAL DECISION MAKING - ED course Complexity details: reviewed old records, reviewed results, re-evaluated patient, considered differential, d/w patient ED course: As with my previous encounters with this patient, he repeatedly requested pain medication. I ordered ofirmev, reglan, and toradol along with IV fluids; when I told him of this plan, he requests "something stronger because those never w ork". I reminded him that I evaluated him 08/12 and, at that time, he reported good relief with these same medications. CO2 on BMP is 11 despite blood sugar of 209. moderate serum ketones. plan is to admit patient for treatment of DKA. I explained to patient several times that I would not be ordering any narcotic/opiate medications for him on this ED stay, and when the labs resulted and plan for admission discussed, I again explained to patient that he would not be receiving narcotic/opiate medications and this would include in the inpatient setting. Departure - Departure Disposition: ED Place in Observation Clinical Impression: DKA (diabetic ketoacidoses) Qualifiers: Diabetes mellitus type: type 1 Diabetes mellitus complication detail: without coma Qualified Code(s): E10.10 - Type 1 diabetes mellitus with ketoacidosis without coma Condition: Stable Discharge Date/Time: 08/24/18 06:52
[2018-08-24] MEDS ORDERED: diphenhydrAMINE INJ 50 MG/ML VIAL IVP STA (03:42)
[2018-08-24] MEDS ORDERED: KETOROLAC 60 MG/2 ML VIAL IVP STA (03:42)
[2018-08-24] MEDS ORDERED: SODIUM CHLORIDE 0.9% 1,000 ML IV STA (03:42)
[2018-08-24] MEDS ORDERED: ACETAMINOPHEN 1,000 MG/100 ML 100 ML IV STA (03:42)
[2018-08-24] MEDS ORDERED: METOCLOPRAMIDE 10 MG/2 ML VIAL IVP STA (03:42)
[2018-08-24 04:00] LABS: BASOPHILS # (AUTO) 0.1 10^3/uL (0.0-0.1); EOSINOPHILS % (AUTO) 0.1 %; HGB - HEMOGLOBIN 13.4 g/dL (14.0-18.0); LYMPHOCYTES # (AUTO) 1.2 10^3/uL (1.5-3.5); LYMPHOCYTES % (AUTO) 13.1 %; MEAN CORPUSCULAR HEMOGLOBIN 28.8 pg (27.0-31.0); MEAN CORPUSCULAR HGB CONC 33.2 g/dL (32.0-36.0); MEAN CORPUSCULAR VOLUME 86.8 fL (80.0-94.0); MEAN PLATELET VOLUME 7.3 fL (7.4-11.4); MONOCYTES # (AUTO) 0.5 10^3/uL (0.0-1.0); MONOCYTES % (AUTO) 5.5 %; NEUTROPHILS # (AUTO) 7.1 10^3/uL (1.5-6.6); NEUTROPHILS % (AUTO) 80.3 %; PLT - PLATELET COUNT 336 10^3/uL (130-450); RED BLOOD COUNT 4.65 10^6/uL (4.70-6.10); RED CELL DISTRIBUTION WIDTH 12.8 % (12.0-15.0); WHITE BLOOD COUNT 8.8 x10^3/uL (4.8-10.8)
[2018-08-24] MEDS: SODIUM CHLORIDE 0.9% 1,000 ML IV STA ×2 (04:07→04:26)
[2018-08-24 04:15] LABS: ALBUMIN 3.8 g/dL (3.2-5.5); ALBUMIN/GLOBULIN RATIO 1.2 (1.0-2.2); BILIRUBIN,TOTAL 1.3 mg/dL (0.2-1.0); CALCIUM 8.6 mg/dL (8.5-10.3); CREATININE 0.7 mg/dL (0.6-1.2); TOTAL PROTEIN 7.1 g/dL (6.7-8.2)
[2018-08-24 04:47] LABS: VBG PCO2 24.6 mmHg (41-51); VBG PH 7.27 (7.31-7.41); VBG TOTAL CO2 11.8 mmol/L (24-29)
[2018-08-24] MEDS ORDERED: LORazepam 2 MG/ML VIAL IVP STA (04:59)
[2018-08-24] MEDS ORDERED: HALOPERIDOL 5 MG/ML VIAL IVP STA (05:01)
[2018-08-24] MEDS ORDERED: IBUPROFEN 600 MG TABLET PO PRN (05:47)
[2018-08-24] MEDS ORDERED: PROMETHAZINE 25 MG/1 ML VIAL IM PRN (05:47)
[2018-08-24] MEDS ORDERED: TEMAZEPAM 15 MG CAPSULE PO PRN (05:47)
--- NOTE | 2018-08-24 06:40 | HISTORY & PHYSICAL EXAMINATION ---
Chief Complaint - Chief Complaint Chief Complaint: Nausea and vomiting, chest pain, abdominal pain History of Present Illness - Admitted From Admitted From:: Emergency department - History Obtained From Records Reviewed: Previous ER visits and hospital stays including most recent discharge [facility] History obtained from: Patient and Dr. Sparks, ED physician Exam Limitations: None - History of Present Illness HPI Comment/Other: Patient is a 18-year-old male with a history of type 1 diabetes who is very well-known to this institution who has had over 20 visits to the emergency department in 2018 and multiple hospital admissions in 2018, most typically due to diabetic ketoacidosis thought to be secondary to poor compliance with medications. He is here today because he presented to the emergency department almost every day in the past week, with complaints of nausea, vomiting, and abdominal pain. His typical course is that he can be corrected with IV fluid hydration in the emergency department and blood sugar control however on today's presentation to the emergency department there are 2 factors that are atypical for his typical course. One is that his blood sugar is relatively normal however his aunt and gap is elevated and his CO2 is critical at 11 despite a blood sugar less than 250.The second is that he has been complaining primarily of chest pain more than abdominal pain today which is not usual for him. He does have a history of persistence tachycardia however he has apparently not complained of chest pain to the emergency physician who knows him very well and has seen him multiple times. With regard to the patient's labs in the emergency room, patient states he took a Insulin prior to coming in, with 40 units of Lantus and 5 units of NovoLog. Patient states that it has been several days since he has been able to tolerate any p.o. intake, but does not have any precipitating event to explain any of his symptoms. He states that he tries to take his medication and tries to take his blood sugar, but the patient is quite lethargic upon my examination and does not seem to be giving a very detailed or reliable history to me. As far as the chest pain, the patient describes it as a burning sensation throughout the entire chest with pain equal in both the central and more peripheral areas of the chest. Patient states it is constantly present but it is worsened with vomiting. He denies any history of GERD but states that it does feel like heartburn to him. He denies any shortness of breath. Denies any constipation. He states that he occasionally smokes marijuana, less than once per week and denies any other substance use and denies alcohol use. He is still living with his aunt and his last visit with his PCP he estimates was several weeks ago but he has no idea what his last hemoglobin A1c was or when it was last checked. Based on the patient's lab values, he appears to be a resolving diabetic ketoacidosis and our team was asked to admit the patient into observation for correction of his metabolites and ketosis. History - Past Medical History Cardiovascular: reports: None, Hypertension, Murmur. denies: Coronary artery disease Respiratory: reports: None Neuro: reports: Peripheral neuropathy, Other (Per chart review, neurogenic bladder) Endocrine/Autoimmune: reports: Type 1 diabetes GI: reports: Other. denies: GERD : reports: None HEENT: reports: None Psych: reports: Depression, Anxiety Musculoskeletal: reports: None Derm: reports: None MRSA Hx?: No - Family & Social History Family History: Mother: Alive and Well, Diabetes, Type 2 (grandmother), Other family: Diabetes, Type 2 Family History Comment/Other: Neg for gallbladder disease and GI tumors Living arrangement: At home Living Situation: With family Social History Notes: The patient is originally from [place] but has been living on [facility] for the last 3 years with his aunt. The patient also spent some time in [place]. Patient has had multiple hospitalizations for diabetic ketoacidosis within the last 2-3 years. Patient was diagnosed with diabetes at the age of 3. The patient is single and does not have any children. He does not smoke tobacco and rarely drinks alcohol. The patient does state he occasionally smokes marijuana but denies any other illicit drug use. - Substance History Use: Uses substance without health or social issues: Alcohol, Cannabis (pt may have hyperemesis related to cannabis, continues to smoke marijuana) - POLST Patient has POLST: No POLST Status: Full Code Meds/Allgy - Home Medications Home Medications: Ambulatory Orders Medication Instructions Recorded Confirmed Fluoxetine HCl [Prozac] 40 mg PO DAILY #30 capsule 08/20/18 Insulin Aspart [NovoLOG] 5 unit SUBQ TIDWM #3 pen 08/20/18 Insulin Glargine [Lantus Solostar] 40 unit SUBQ DAILY PM #4 pen 11/24/18 Metoclopramide [Reglan] 10 mg PO Q6H PRN #30 tablet 08/20/18 - Allergies Allergies/Adverse Reactions: Allergies Allergy/AdvReac Type Severity Reaction Status Date / Time No Known Drug Allergies Allergy Verified 08/24/18 03:35 Review of Systems - Constitutional Constitutional: reports: Malaise, Weakness, Poor appetite, Diaphoresis. denies: Fatigue, Chills - Cardiovascular Cariovascular: reports: Chest pain. denies: Irregular heart rate, Palpitations - Respiratory Respiratory: reports: SOB at rest. denies: Cough - Gastrointestinal Gastrointestinal: reports: Abdominal pain, Nausea, Vomiting, Bile emesis, Reflux/heartburn. denies: Constipation, Diarrhea, Change in bowel habits, Anderson blood emesis, Coffee grounds emesis - Integumentary Integumentary: denies: Rash - Neurological Neurological: reports: General weakness Prior Level of Functionality: Independent Exam - Vital Signs Reviewed Vital Signs: Yes Vital Signs: Vital Signs x48h Temp Pulse Resp BP Pulse Ox 08/24/18 04:17 120 H 18 146/98 H 100 08/24/18 03:24 36.7 C 129 H 19 163/101 H 100 - Physical Exam General Appearance: positive: No acute distress, Lethargic Eyes Bilateral: positive: Normal inspection ENT: positive: ENT inspection nml Neck: positive: Nml inspection, Thyroid nml Respiratory: positive: No respiratory distress, Breath sounds nml. negative: Wheezes, Rales, Rhonchi Cardiovascular: positive: Regular rate & rhythm, No murmur, No gallop Peripheral Pulses: positive: 2+ Abdomen: positive: No organomegaly, Nml bowel sounds, No distention, Tenderness Skin: positive: Dry Extremities: positive: Non-tender Neurologic/Psychiatric: positive: Oriented x3, CN's nml (2-12), Motor nml, Sensation nml, Depressed mood/affect Sepsis Event Note (H) - Evaluation Current Stage of Sepsis: Ruled out Conclusion/Plan - Problem List (1) DKA (diabetic ketoacidoses) Conclusion/Plan: Patient appears to be in a state of resolving diabetic ketoacidosis. It is likely that the high dose of insulin that he took prior to coming to the emergency room have resulted in a lower than usual blood sugar for him in the 200s, however with his chloride level of 11 and anion gap of 16, and serum ketones and moderate level, he is still an ptosis and acidosis. Given the blood sugar level, he does not need an insulin drip at this time, and I think he will resolve with IV fluid hydration and allowing him to resume a diet when he is able to attempt, and resuming his basal insulin per his home schedule (would not recommend earlier than this evening given that he took a basal insulin dose early this morning prior to the ER visit). I have initiated a modified diabetic ketoacidosis protocol with labs2 hours after admission and then again to be repeated 2 hours later and pending the results of these labs will determine whether his anion gap is closed and the ketosis has resolved and whether the patient eventually does require higher doses of insulin if his sugars started climbing up again. Qualifiers: Diabetes mellitus type: type 1 Diabetes mellitus complication detail: without coma Qualified Code(s): E10.10 - Type 1 diabetes mellitus with ketoacidosis without coma (2) Dehydration Conclusion/Plan: Related to the type 1 diabetes and diabetic ketoacidosis as well as nausea and vomiting. We will start an IV fluid bolus of 1 L, to be followed by maintenance fluids. We will closely monitor urine output and follow-up labs over the next several hours and I anticipate the patient should resolve quite quickly. (3) Diabetes type 1, uncontrolled Conclusion/Plan: Patient is very well-known to this hospital service and weeks to have met him multiple times and have provided him counseling and education on the appropriate outpatient diabetes plan. We will reiterate these on this admission, continue his home basal insulin, sliding scale when he starts eating, and continue to re inforce the importance of outpatient compliance to prevent both the nausea and vomiting and his quality of life as well as the multiple avoidable hospital stays. Qualifiers: Glycemic state: with hyperglycemia Qualified Code(s): E10.65 - Type 1 diabetes mellitus with hyperglycemia (4) Chest pain Conclusion/Plan: His descriptors are most consistent with acid reflux so I will start omeprazole twice daily. However, given his history of persistent tachycardia, I will go ahead and get a set of cardiac enzymes to rule out underlying cardiac etiology which is less likely given the echocardiogram in 2017 which was unremarkable and the patient's young age and low BMI. Qualifiers: Chest pain type: other chest pain Qualified Code(s): R07.89 - Other chest pain; R07.8 - Other chest pain (5) Tachycardia with hypertension Conclusion/Plan: Tachycardia likely related to dehydration. Hypertension appears to be chronic. Possibly currently exacerbated due to pain. It is unclear if this is a chronic state and whether or not the patient will need treatment, though given his diabetic status would be appropriate for an HILARY inhibitor or ARB. Will monitor heart rate and blood pressure after IV fluid resuscitation and if continues consider metoprolol. I have reviewed the records and she has had an echoc ardiogram within about a year that did not demonstrate any underlying cardiac etiology. (6) Neurogenic bladder Conclusion/Plan: Continue to monitor urine output and as needed straight cath if necessary - Lab Results Lab results reviewed: Yes Master Bones: 08/24/18 03:50 08/24/18 03:50 Core Measures - Anticipated LOS I expect patient to be DC'd or transferred within 96 hours.: Yes - Issues Hospital Issues and Management Plan: Anticipate the patient to be discharged within less than 2 midnights
[2018-08-24] MEDS: SODIUM CHLORIDE FLUSH 0.9% 10 ML SYRINGE IVP SCH ×5 (07:36→17:17)
[2018-08-24] MEDS: FLUoxetine 10 MG CAPSULE PO SCH (08:14)
[2018-08-24] MEDS: PANTOPRAZOLE 40 MG VIAL IVP SCH ×2 (08:24→15:57)
[2018-08-24] MEDS: POLYETHYLENE GLYCOL 3350 17 GM PACKET PO SCH (08:24)
[2018-08-24] MEDS: INSULIN ASPART 300 UNIT/3 ML PEN SUBQ SCH ×3 (08:26→16:45)
[2018-08-24 08:44] LABS: BUN - BLOOD UREA NITROGEN 10 mg/dL (6-20); CALCIUM 8.6 mg/dL (8.5-10.3); CHLORIDE 108 mmol/L (101-111); CREATININE 0.5 mg/dL (0.6-1.2); GFR - MDRD 212 (>89); GLUCOSE 138 mg/dL (70-100); MAGNESIUM 1.9 mg/dL (1.7-2.8); SODIUM 134 mmol/L (135-145)
[2018-08-24 08:45] LABS: HB2 TOTAL 13.7 g/dL; HEMOGLOBIN A1C 1.33 g/dL
[2018-08-24 08:46] LABS: CARBON DIOXIDE - CO2 12 mmol/L (21-32)
[2018-08-24 08:52] LABS: KETONES, SERUM (ACETEST) SMALL (NEGATIVE)
[2018-08-24] MEDS ORDERED: FLUOXETINE HCL 40 MG PO SCH (09:00)
[2018-08-24 10:20] LABS: BUN - BLOOD UREA NITROGEN 9 mg/dL (6-20); CALCIUM 8.1 mg/dL (8.5-10.3); CARBON DIOXIDE - CO2 15 mmol/L (21-32); CHLORIDE 109 mmol/L (101-111); CREATININE 0.6 mg/dL (0.6-1.2); GFR - MDRD 172 (>89); GLUCOSE 112 mg/dL (70-100); SODIUM 133 mmol/L (135-145)
[2018-08-24 10:46] LABS: KETONES, SERUM (ACETEST) SMALL (NEGATIVE)
[2018-08-24] MEDS ORDERED: SODIUM CHLORIDE 0.9% 500 ML IV ONE (10:51)
[2018-08-24] MEDS: POTASSIUM CHLORIDE 20 MEQ/15 ML UDC PO SCH (11:40)
[2018-08-24] MEDS: ONDANSETRON 4 MG/2 ML VIAL IVP PRN (11:48)
[2018-08-24] MEDS ORDERED: GI COCKTAIL 120 ML BOTTLE PO PRN (13:17)
[2018-08-24 14:30] LABS: MUDS CUTOFF CONCENTRATIONS CUTOFF CONC BELOW:
[2018-08-24 14:34] LABS: BILIRUBIN,URINE NEGATIVE (NEGATIVE); GLUCOSE, URINE (UA) 500 mg/dL (NEGATIVE); KETONES,URINE (UA) >=80 mg/dL (NEGATIVE); LEUKOCYTE ESTERASE, URINE NEGATIVE (NEGATIVE); NITRITE,URINE NEGATIVE (NEGATIVE); OCCULT BLOOD,URINE NEGATIVE (NEGATIVE); PROTEIN,URINE NEGATIVE (NEGATIVE); UROBILINOGEN,URINE 0.2 (NORMAL) E.U./dL (NORMAL)
[2018-08-24 14:36] LABS: CLARITY,URINE CLEAR (CLEAR)
[2018-08-24 14:49] LABS: AMPHETAMINE SCREEN,URINE NEGATIVE (NEGATIVE); BENZODIAZEPINES SCREEN, URINE NEGATIVE (NEGATIVE); COCAINE SCREEN URINE NEGATIVE (NEGATIVE); METHADONE SCREEN, URINE NEGATIVE (NEGATIVE); METHAMPHETAMINES SCREEN, URINE NEGATIVE (NEGATIVE); OPIATE SCREEN, URINE NEGATIVE (NEGATIVE); OXYCODONE SCREEN, URINE NEGATIVE (NEGATIVE); PROPOXYPHENE SCREEN, URINE NEGATIVE (NEGATIVE); TRICYCLIC ANTIDEPRESSANT,URINE NEGATIVE (NEGATIVE)
[2018-08-24] MEDS ORDERED: DEXTROSE 50% ABBOJECT 25 GM/50 ML SYRINGE IVP SCH (17:10)
[2018-08-24] MEDS: INSULIN GLARGINE 300 UNIT/3 ML PEN SUBQ SCH (21:22)
[2018-08-25] MEDS: SODIUM CHLORIDE FLUSH 0.9% 10 ML SYRINGE IVP SCH ×4 (01:50→15:39)
[2018-08-25] MEDS: ONDANSETRON 4 MG/2 ML VIAL IVP PRN ×2 (01:50→09:52)
[2018-08-25] MEDS: KETOROLAC 30 MG/ML VIAL IVP PRN (02:17)
[2018-08-25] MEDS: SODIUM CHLORIDE FLUSH 0.9% 10 ML SYRINGE IVP PRN ×3 (02:17→06:59)
[2018-08-25] MEDS: diphenhydrAMINE 25 MG CAPSULE PO PRN ×2 (02:18→03:27)
[2018-08-25] MEDS ORDERED: DEXTROSE 50% ABBOJECT 25 GM/50 ML SYRINGE ONE (03:13)
[2018-08-25] MEDS ORDERED: DEXTROSE 50% ABBOJECT 25 GM/50 ML SYRINGE IVP ONE ×2 (03:15→16:56)
[2018-08-25] MEDS: PROCHLORPERAZINE 10 MG/2 ML VIAL IVP PRN ×2 (06:52→14:39)
[2018-08-25] MEDS: PANTOPRAZOLE 40 MG VIAL IVP SCH ×2 (06:52→15:39)
[2018-08-25] MEDS: POTASSIUM CHLORIDE 20 MEQ/15 ML UDC PO SCH (09:49)
[2018-08-25] MEDS: FLUoxetine 10 MG CAPSULE PO SCH (09:50)
[2018-08-25] MEDS: POLYETHYLENE GLYCOL 3350 17 GM PACKET PO SCH (09:50)
[2018-08-25 10:21] LABS: CALCIUM 8.5 mg/dL (8.5-10.3); CREATININE 0.4 mg/dL (0.6-1.2)
[2018-08-25] MEDS: INSULIN ASPART 300 UNIT/3 ML PEN SUBQ SCH ×3 (10:49→18:03)
[2018-08-25] MEDS ORDERED: SODIUM CHLORIDE 0.9% 1,000 ML IV SCH (11:00)
[2018-08-25] MEDS ORDERED: POTASSIUM CHLORIDE INJ 40 MEQ in SODIUM CHLORIDE 0.9% 500 ML IV ONE (12:00)
--- NOTE | 2018-08-25 15:27 | PROVIDER PROGRESS NOTE ---
Subjective - Prog Note Date Prog Note Date: 08/25/18 Prog Note Time: 15:34 - Subjective Subjective: Mr. Kearney is very apathetic. He awakens easily when any but he walks in the room. He is conversant, alert, appropriate and lucid. However he spends most of his time sleeping. Withdrawn from conversation from nursing. Room is usually dark, TV is off when I come in. We did get him to take a bath yesterday because of bad body odor. But that is about the most he has roused himself to do. He still has indigestion, waves of nausea. Not a lot of emesis. He said that he wanted us to advance his diet from clear liquids to full diet but was not even eating the clear liquids. I compromised and were giving him full liquids to see if he keep those down. Current Medications - Current Medications Current Medications: Active Medications Diphenhydramine HCl (Benadryl) 25 - 50 mg PO Q4HR PRN PRN Reason: PAIN Last Admin: 08/25/18 03:27 Dose: 25 mg Fluoxetine HCl (Prozac) 40 mg PO DAILY [facility] Last Admin: 08/25/18 09:50 Dose: 40 mg Potassium Chloride (Potassium Chloride) 10 meq in 100 mls @ 100 mls/hr IV Q1H [facility] Stop: 08/25/18 17:59 Sodium Chloride (Normal Saline 0.9%) 1,000 mls @ 83.333 mls/hr IV .Q12H [facility] Last Admin: 08/25/18 11:23 Dose: 83.333 mls/hr Potassium Chloride 40 meq/ (Sodium Chloride) 520 mls @ 130 mls/hr IV ONCE ONE Stop: 08/25/18 15:59 Last Admin: 08/25/18 11:52 Dose: 130 mls/hr Ibuprofen (Motrin) 600 mg PO Q6HR PRN PRN Reason: Pain 1 to 4 Insulin Aspart (Novolog) 5 unit SUBQ TIDWM [facility] Last Admin: 08/25/18 14:20 Dose: Not Given Insulin Glargine (Lantus Solostar) 40 unit SUBQ HS [facility] Last Admin: 08/24/18 21:22 Dose: 40 unit Ketorolac Tromethamine (Toradol Inj (30mg)) 30 mg IVP Q6HR PRN PRN Reason: PAIN Stop: 08/30/18 02:05 Last Admin: 08/25/18 02:17 Dose: 30 mg Multi-Ingredient Mouthwash/Gargle () 30 ml PO TID PRN PRN Reason: Abdominal Pain Last Admin: 08/24/18 21:25 Dose: 30 ml Ondansetron HCl (Zofran Inj) 4 mg IVP Q6HR PRN PRN Reason: Nausea / Vomiting Last Admin: 08/25/18 09:52 Dose: 4 mg Pantoprazole Sodium (Protonix) 40 mg IVP BIDAC [facility] Last Admin: 08/25/18 06:52 Dose: 40 mg Polyethylene Glycol (Miralax) 17 gm PO DAILY [facility] Last Admin: 08/25/18 09:50 Dose: 17 gm Potassium Chloride () 20 meq PO DAILYWM [facility] Last Admin: 08/25/18 09:49 Dose: 20 meq Prochlorperazine Edisylate (Compazine Inj) 10 mg IVP Q6HR PRN PRN Reason: Nausea / Vomiting Last Admin: 08/25/18 14:39 Dose: 10 mg Promethazine HCl (Phenergan Inj) 25 mg IM Q6HR PRN PRN Reason: Nausea / Vomiting Sodium Chloride (Normal Saline Flush 0.9%) 10 ml IVP PRN PRN PRN Reason: NEEDED PER PROVIDER ORDERS Last Admin: 08/25/18 06:59 Dose: 10 ml Sodium Chloride (Normal Saline Flush 0.9%) 10 ml IVP 0100,0900,1700 [facility] Last Admin: 08/25/18 09:53 Dose: 10 ml Temazepam (Restoril) 15 mg PO QPM PRN PRN Reason: Insomnia Gabapentin 300 mg PO DAILY 08/24/18 Objective - Vital Signs/Intake & Output Reviewed Vital Signs: Yes Vital Signs: Vital Signs x48h Temp Pulse Resp BP Pulse Ox 08/25/18 11:34 37.0 C 100 16 107/70 98 08/25/18 07:35 37.0 C 108 H 18 143/92 H 100 Intake & Output: Intake & Output 08/22/18 08/23/18 08/24/18 08/25/18 23:59 23:59 23:59 23:59 Intake Total 3600 1160 Output Total 4200 1500 Balance -600 -340 - Objective General Appearance: positive: No acute distress, Alert Eyes Bilateral: positive: PERRL ENT: positive: Pharynx nml Neck: negative: No JVD, Stiff neck, Carotid bruit Respiratory: positive: Chest non-tender. negative: Wheezes, Rales, Rhonchi Cardiovascular: positive: Regular rate & rhythm. negative: Gallop/S4, Friction rub Abdomen: positive: No organomegaly, Nml bowel sounds, No distention, Other (Generalized mild diffuse aching on palpation of his abdomen). negative: Guarding, Rebound Skin: positive: Warm, Dry, Pallor Extremities: positive: Non-tender, Full ROM, No pedal edema Neurologic/Psychiatric: positive: Oriented x3, CN's nml (2-12), Motor nml, Depressed mood/affect (Severe. Very withdrawn young man) - Lab Results Fish Bones: 08/24/18 03:50 08/25/18 09:41 Other Labs: Lab Results x24hrs 08/25/18 Range/Units 09:41 Sodium 134 L (135-145) mmol/L Potassium 2.5 L* (3.5-5.0) mmol/L Chloride 105 (101-111) mmol/L Carbon Dioxide 21 (21-32) mmol/L Anion Gap 8.0 (6-13) BUN 7 (6-20) mg/dL Creatinine 0.4 L (0.6-1.2) mg/dL Estimated GFR (MDRD) 274 (>89) Glucose 103 H (70-100) mg/dL Calcium 8.5 (8.5-10.3) mg/dL ABX Reporting Has patient been on IV antibiotics over the past 48 hours?: No Sepsis Event Note (H) - Evaluation Current Stage of Sepsis: Ruled out Assessment/Plan - Problem List (1) DKA (diabetic ketoacidoses) Impression: On admission, patient appeared to be in a state of resolving diabetic keto acidosis. It is likely that the high dose of insulin that he took prior to coming to the emergency room have resulted in a lower than usual blood sugar for him in the 200s, however with his chloride level of 11 and anion gap of 16, and serum ketones and moderate level, he is still had acidosis. Given the blood sugar level, he did not need an insulin drip at that time, and it was thought he would resolve with IV fluid hydration and then allow him to resume a diet when he was able to attempt, and then resume his basal insulin per his home schedule. Modified diabetic ketoacidosis protocol with labs 2 hours after admission and then again to be repeated 2 hours later and pending the results of these labs will determine whether his anion gap is closed and the ketosis has resolved and whether the patient eventually does require higher doses of insulin if his sugars started climbing up again. He is still very nauseated and unable to eat. He wanted to be advanced to regular diet but he still could not even keep a liquid diet down. We compromised and have given him a full liquid diet. But he has yet to be able to do that today. His carbon dioxide level has improved. It went from 12, to 15, and is normal today at 21. Anion gap was high at 14 and is now 8. He was getting fixed dose insulin 5 units before each meal. But he is not eating. Glucose was anywhere from 70-206 yesterday. This morning he is 57. Resulted in hypoglycemic protocol being implemented any of his glucose was 202 at 3:45 in the morning. By this afternoon he is 101. Qualifiers: Diabetes mellitus type: type 1 Diabetes mellitus complication detail: without coma Qualified Code(s): E10.10 - Type 1 diabetes mellitus with ketoacidosis without coma (2) Dehydration Conclusion/Plan: Related to the type 1 diabetes and diabetic ketoacidosis as well as nausea and vomiting. We will start an IV fluid bolus of 1 L, to be followed by maintenance fluids. We will closely monitor urine output and follow-up labs over the next several hours and I anticipate the patient should resolve quite quickly.He received 3600 of fluid yesterday we will put out 4200 cc. Today he is received 1160 and is put out 1500. He has urinary retention is a problem. With all his fluid shifts he is only got 167 cc in his bladder this afternoon. I think he still way behind in his fluids. Currently receiving normal saline at 85 cc an hour plus his potassium riders to total about 210 cc an hour. Once the potassium riders are done, we will change him to normal saline with 20 mg of potassium at 150 cc an hour. (3) Diabetes type 1, uncontrolled Conclusion/Plan: Patient is very well-known to this hospital service and weeks to have met him multiple times and have provided him counseling and education on the appropriate outpatient diabetes plan. We will reiterate these on this admission, continue his home basal insulin, sliding scale when he starts eating, and continue to reinforce the importance of outpatient compliance to prevent both the nausea and vomiting and his quality of life as well as the multiple avoidable hospital stays.certified breastfeeding educator attempted to make contact with them. He is just so withdrawn and anhedonic apathetic he was not engaging. Qualifiers: Glycemic state: with hyperglycemia Qualified Code(s): E10.65 - Type 1 diabetes mellitus with hyperglycemia (4) Chest pain Conclusion/Plan: His descriptors are most consistent with acid reflux so I will start omeprazole twice daily. However, given his history of persistent tachycardia, I will go ahead and get a set of cardiac enzymes to rule out underlying cardiac etiology which is less likely given the echocardiogram in 2017 which was unremarkable and the patient's young age and low BMI. Cardiac enzymes have been negative. I have ordered GI cocktail for twice a day. Qualifiers: Chest pain type: other chest pain Qualified Code(s): R07.89 - Other chest pain; R07.8 - Other chest pain (5) Tachycardia with hypertension Conclusion/Plan: Tachycardia likely related to dehydration. Hypertension appears to be chronic. Possibly currently exacerbated due to pain. It is unclear if this is a chronic state and whether or not the patient will need treatment, though given his d iabetic status would be appropriate for an HILARY inhibitor or ARB. Will monitor heart rate and blood pressure after IV fluid resuscitation and if continues consider metoprolol. I have reviewed the records and he has had an echocardiogram within about a year that did not demonstrate any underlying ca rdiac etiology. He remains intermittently tachycardic in the low 100s. Blood pressure was 149/88 this morning. This afternoon he is 107/70.I still think he is behind on his fluids. I am addressing that with problem #2 (6) Neurogenic bladder Conclusion/Plan: Continue to monitor urine output and as needed straight cath if necessary Qualifiers: Qualified Code(s): E10.10 - Type 1 diabetes mellitus with ketoacidosis without coma
[2018-08-25] MEDS: POTASSIUM CHLOR 10 MEQ/100 ML 10 MEQ/100 ML BAG IV SCH ×2 (15:39→16:43)
[2018-08-25] MEDS: DEXTROSE 5% 1,000 ML IV SCH (18:04)
[2018-08-25] MEDS: INSULIN GLARGINE 300 UNIT/3 ML PEN SUBQ SCH (21:09)
[2018-08-25] MEDS: SODIUM CHLORIDE 0.9% 1,000 ML IV SCH (21:50)
[2018-08-25] MEDS ORDERED: INSULIN GLARGINE 300 UNIT/3 ML PEN SUBQ SCH (22:00)
[2018-08-26] MEDS: SODIUM CHLORIDE FLUSH 0.9% 10 ML SYRINGE IVP SCH ×3 (00:55→17:00)
[2018-08-26] MEDS: ONDANSETRON 4 MG/2 ML VIAL IVP PRN ×3 (01:02→17:40)
[2018-08-26] MEDS: KETOROLAC 30 MG/ML VIAL IVP PRN ×4 (01:02→21:47)
[2018-08-26] MEDS: DEXTROSE 5% 1,000 ML IV SCH (03:31)
[2018-08-26] MEDS: SODIUM CHLORIDE FLUSH 0.9% 10 ML SYRINGE IVP PRN ×6 (06:10→21:50)
[2018-08-26] MEDS: PANTOPRAZOLE 40 MG VIAL IVP SCH ×2 (06:10→15:59)
[2018-08-26] MEDS: SODIUM CHLORIDE 0.9% 1,000 ML IV SCH (06:47)
[2018-08-26] MEDS ORDERED: METOCLOPRAMIDE 10 MG/2 ML VIAL IVP PRN (08:08)
[2018-08-26] MEDS: INSULIN ASPART 300 UNIT/3 ML PEN SUBQ SCH (08:12)
[2018-08-26] MEDS: POLYETHYLENE GLYCOL 3350 17 GM PACKET PO SCH (08:53)
[2018-08-26] MEDS: FLUoxetine 10 MG CAPSULE PO SCH ×2 (08:54→09:04)
[2018-08-26] MEDS: POTASSIUM CHLORIDE 20 MEQ/15 ML UDC PO SCH (08:54)
[2018-08-26] MEDS: METOCLOPRAMIDE 10 MG TABLET PO SCH ×4 (09:04→21:38)
[2018-08-26 09:15] LABS: CALCIUM 8.3 mg/dL (8.5-10.3); CREATININE 0.4 mg/dL (0.6-1.2)
--- NOTE | 2018-08-26 09:24 | XRAY Report ---
Reason: N/V, eval for obstruction Procedure Date: 08/26/2018 Accession Number: [id number] / [id number] Procedure: XR - Abdomen 1 View X-Ray CPT Code: 15561 FULL RESULT: EXAM: ABDOMEN RADIOGRAPHY EXAM DATE: 08/26/2018 08:32 AM. CLINICAL HISTORY: N/V, eval for obstruction. COMPARISON: ABDOMEN ACUTE 08/18/2018 10:33 PM. TECHNIQUE: 1 view. FINDINGS: Bowel Gas Pattern: Nonobstructive. Moderate stool from the mid colon through the rectum. Other: None. IMPRESSION: No bowel obstruction. Findings suggesting constipation. RADIA
[2018-08-26] MEDS: NS W/40 MEQ KCL 1,000 ML IV SCH ×2 (10:12→19:24)
[2018-08-26] MEDS: POTASSIUM CHLORIDE 20 MEQ TABLET PO SCH ×2 (10:12→11:50)
[2018-08-26] MEDS ORDERED: POTASSIUM CHLORIDE 20 MEQ/15 ML UDC PO ONE (11:00)
[2018-08-26] MEDS: PROCHLORPERAZINE 10 MG/2 ML VIAL IVP PRN (14:21)
--- NOTE | 2018-08-26 15:49 | PROVIDER PROGRESS NOTE ---
Assessment/Plan - Problem List (1) Gastritis Qualifiers: Gastritis type: unspecified gastritis Chronicity: unspecified Gastritis bleeding: without bleeding Qualified Code(s): K29.70 - Gastritis, unspecified, without bleeding Assessment/Plan: His abd pain and nausea comes and goes. He was put on antacid treatment. Will add scheduled Reglan. Advance diet as tolerated. (2) Diabetic gastroparesis Assessment/Plan: Reglan should be used, on a schedule, and has helped his sx on previous admissions. (3) Diabetes type 1, uncontrolled Qualifiers: Glycemic state: with hyperglycemia Qualified Code(s): E10.65 - Type 1 diabetes mellitus with hyperglycemia Assessment/Plan: Because of his anorexia, from nausea and abdominal pain, he is getting low glu on fingerstick checks. Will cancel Reg insulin with meals and decrease the Lantus dose. (4) Hypokalemia Assessment/Plan: Replace. Monitor BMP daily. (5) Depression Qualifiers: Depression Type: unspecified Qualified Code(s): F32.9 - Major depressive disorder, single episode, unspecified Assessment/Plan: The patient is not cooperating, wants to just sleep, wants room dark. The staff all say he seems depressed. He has been in the ER here everyday since [facility] on 08/20, whereas he had been able to remain out of the hospital for an entire month before that admission. This makes the possibility of unknown social problem at home a reality. Will request a mental Health eval from Social Work to evaluate for depression. Continue Prozac. Social Work is also organizing a family conference to include his outpt nurse case manager. - Current Meds Current Meds: Current Medications Generic Name Dose Route Start Last Admin Trade Name Izzy PRN Reason Stop Dose Admin Diphenhydramine HCl 25 - 50 mg 08/25/18 02:04 08/25/18 03:27 Benadryl PO 25 mg Q4HR PRN Administration PAIN Fluoxetine HCl 40 mg 08/24/18 09:00 08/26/18 09:04 Prozac PO 40 mg DAILY SHEILA Administration Potassium Chloride/Sodium Chloride 1,000 mls @ 100 mls/hr 08/26/18 10:00 08/26/18 10:12 Normal Saline 0.9% W/40 Meq Kcl IV 100 mls/hr .Q10H [facility]A Administration Ketorolac Tromethamine 30 mg 08/25/18 02:06 08/26/18 14:22 Toradol Inj (30mg) IVP 08/30/18 02:05 30 mg Q6HR PRN Administration PAIN Metoclopramide HCl 10 mg 08/26/18 09:00 08/26/18 11:50 Reglan PO 10 mg ACHS SHEILA Administration Multi-Ingredient Mouthwash/Gargle 30 ml 08/24/18 13:17 08/24/18 21:25 PO 30 ml TID PRN Administration Abdominal Pain Ondansetron HCl 4 mg 08/24/18 05:47 08/26/18 11:56 Zofran Inj IVP 4 mg Q6HR PRN Administration Nausea / Vomiting Pantoprazole Sodium 40 mg 08/24/18 07:00 08/26/18 06:10 Protonix IVP 40 mg BIDAC SHEILA Administration Polyethylene Glycol 17 gm 08/24/18 09:00 08/26/18 08:53 Miralax PO Not Given DAILY [facility] Potassium Chloride 20 meq 08/26/18 10:00 08/26/18 11:50 K-Dur PO 20 meq 1000,1400 SHE[facility] Administration Prochlorperazine Edisylate 10 mg 08/24/18 05:47 08/26/18 14:21 Compazine Inj IVP 10 mg Q6HR PRN Administration Nausea / Vomiting Sodium Chloride 10 ml 08/24/18 05:47 08/26/18 14:22 Normal Saline Flush 0.9% IVP 10 ml PRN PRN Administration NEEDED PER PROVIDER ORDERS Sodium Chloride 10 ml 08/24/18 09:00 08/26/18 07:47 Normal Saline Flush 0.9% IVP Not Given 0100,0900,1700 SHE[facility]A - Lab Result Fish Bone Diagrams: 08/24/18 03:50 08/27/18 06:27 - Additional Planning My Orders: My Active Orders 08/26/18 Social Work Consult [CONS] Routine 08/26/18 08:08 Metoclopramide Inj [Reglan Inj] 5 mg IVP Q6HR PRN 08/26/18 09:00 Metoclopramide [Reglan] 10 mg PO ACHS 08/26/18 10:00 Ns W/40 Meq KCl [Normal Saline 0.9% W/40 Meq KCl] 1,000 ml IV 100 mls/hr Potassium Chloride [K-Dur] 20 meq PO 1000,1400 08/26/18 18:00 BMP - BASIC METABOLIC PANEL [CHEM] Timed 08/26/18 21:00 Insulin Glargine [Lantus Solostar] 20 unit SUBQ HS 08/26/18 Dinner DIET [Dysphagia Puree Diet] [DIET] 08/27/18 05:00 BMP - BASIC METABOLIC PANEL [CHEM] DAILYLAB MAGNESIUM [CHEM] DAILYLAB Subjective - Subjective Nursing Reports: Other (He refused a full liquid diet, wanted solids, took a fruit smoothie, then developed nausea and abd pain and is refusing the solid foods.) Objective Vital Signs: Vital Signs - 24 hr 08/25/18 08/25/18 08/26/18 20:52 23:56 04:35 Temperature 36.6 C 36.6 C 36.8 C Heart Rate [ 121 H 111 H 96 Monitoring electrodes] Respiratory 18 15 17 Rate Blood Pressure 122/79 120/86 H 136/83 H [Right Brachial artery] O2 Saturation 98 97 99 08/26/18 08/26/18 08:00 11:52 Temperature 36.2 C L 36.7 C Heart Rate [ 99 105 H Monitoring electrodes] Respiratory 16 18 Rate Blood Pressure 126/82 H 144/99 H [Right Brachial artery] O2 Saturation 100 99 Oxygen O2 Source Room air I&O (Last 24 Hrs): Intake and Output Totals x24h 08/24/18 08/25/18 08/26/18 23:59 23:59 23:59 Intake Total 3600 3377.219 2153.917 Output Total 4200 1500 3675 Balance -600 1877.219 -1521.083 General: Alert, Oriented x3, Other (Sleepy) HEENT: Mucous membr. moist/pink Neck: Supple Neuro: Non Focal Cardiovascular: Regular rate Respiratory: No respiratory distress Abdomen: Soft Extremities: No edema - Results Results: Laboratory Results WBC 8.8 x10^3/uL (4.8-10.8) 08/24/18 03:50 RBC 4.65 10^6/uL (4.70-6.10) L 08/24/18 03:50 Hgb 13.4 g/dL (14.0-18.0) L 08/24/18 03:50 Hct 40.4 % (42.0-52.0) L 08/24/18 03:50 MCV 86.8 fL (80.0-94.0) 08/24/18 03:50 MCH 28.8 pg (27.0-31.0) 08/24/18 03:50 MCHC 33.2 g/dL (32.0-36.0) 08/24/18 03:50 RDW 12.8 % (12.0-15.0) 08/24/18 03:50 Plt Count 336 10^3/uL (130-450) 08/24/18 03:50 MPV 7.3 fL (7.4-11.4) L 08/24/18 03:50 Neut # (Auto) 7.1 10^3/uL (1.5-6.6) H 08/24/18 03:50 Lymph # (Auto) 1.2 10^3/uL (1.5-3.5) L 08/24/18 03:50 [place] # (Auto) 0.5 10^3/uL (0.0-1.0) 08/24/18 03:50 Eos # (Auto) 0.0 10^3/uL (0.0-0.7) 08/24/18 03:50 Baso # (Auto) 0.1 10^3/uL (0.0-0.1) 08/24/18 03:50 Absolute Nucleated RBC 0.00 x10^3/uL 08/24/18 03:50 Nucleated RBC % 0.0 /100WBC 08/24/18 03:50 VBG pH 7.270 (7.31-7.41) L 08/24/18 04:40 VBG pCO2 24.6 mmHg (41-51) L 08/24/18 04:40 VBG pO2 48.0 mmHg (25-47) H 08/24/18 04:40 VBG HCO3 11.0 mmol/L (23-28) L 08/24/18 04:40 VBG Total CO2 11.8 mmol/L (24-29) L 08/24/18 04:40 VBG O2 Saturation 87.8 % (60-80) H 08/24/18 04:40 VBG Base Excess -14.0 mmol/L (-2 - +2) L 08/24/18 04:40 Sodium 135 mmol/L (135-145) 08/26/18 08:46 Potassium 2.5 mmol/L (3.5-5.0) L* 08/26/18 08:46 Chloride 106 mmol/L (101-111) 08/26/18 08:46 Carbon Dioxide 22 mmol/L (21-32) 08/26/18 08:46 Anion Gap 7.0 (6-13) 08/26/18 08:46 BUN 6 mg/dL (6-20) 08/26/18 08:46 Creatinine 0.4 mg/dL (0.6-1.2) L 08/26/18 08:46 Estimated GFR (MDRD) 274 (>89) 08/26/18 08:46 Glucose 70 mg/dL (70-100) 08/26/18 08:46 Glycated Hemoglobin 11.0 % (4.6-6.2) H 08/24/18 08:12 Estim Average Glucose 269 (70-100) H 08/24/18 08:12 Calcium 8.3 mg/dL (8.5-10.3) L 08/26/18 08:46 Phosphorus 2.0 mg/dL (2.5-4.6) L 08/24/18 08:12 Magnesium 1.9 mg/dL (1.7-2.8) 08/24/18 08:12 Total Bilirubin 1.3 mg/dL (0.2-1.0) H 08/24/18 03:50 AST 12 IU/L (10-42) 08/24/18 03:50 ALT 12 IU/L (10-60) 08/24/18 03:50 Alkaline Phosphatase 99 IU/L (42-121) 08/24/18 03:50 Troponin I < 0.04 ng/mL (<0.49) 08/24/18 12:02 Total Protein 7.1 g/dL (6.7-8.2) 08/24/18 03:50 Albumin 3.8 g/dL (3.2-5.5) 08/24/18 03:50 Globulin 3.3 g/dL (2.1-4.2) 08/24/18 03:50 Albumin/Globulin Ratio 1.2 (1.0-2.2) 08/24/18 03:50 Lipase 16 U/L (22-51) L 08/24/18 03:50 Urine Color YELLOW 08/24/18 14:00 Urine Clarity CLEAR (CLEAR) 08/24/18 14:00 Urine pH 6.0 PH (5.0-7.5) 08/24/18 14:00 Ur Specific Nichols 1.025 (1.002-1.030) 08/24/18 14:00 Urine Protein NEGATIVE mg/dL (NEGATIVE) 08/24/18 14:00 Urine Glucose (UA) 500 mg/dL (NEGATIVE) H 08/24/18 14:00 Urine Ketones >=80 mg/dL (NEGATIVE) H 08/24/18 14:00 Urine Occult Blood NEGATIVE (NEGATIVE) 08/24/18 14:00 Urine Nitrite NEGATIVE (NEGATIVE) 08/24/18 14:00 Urine Bilirubin NEGATIVE (NEGATIVE) 08/24/18 14:00 Urine Urobilinogen 0.2 (NORMAL) E.U./dL (NORMAL) 08/24/18 14:00 Ur Leukocyte Esterase NEGATIVE (NEGATIVE) 08/24/18 14:00 Ur Microscopic Review NOT INDICATED 08/24/18 14:00 Urine Culture Comments NOT INDICATED 08/24/18 14:00 Urine Opiates Screen NEGATIVE (NEGATIVE) 08/24/18 14:00 Ur Oxycodone Screen NEGATIVE (NEGATIVE) 08/24/18 14:00 Urine Methadone Screen NEGATIVE (NEGATIVE) 08/24/18 14:00 Ur Propoxyphene Screen NEGATIVE (NEGATIVE) 08/24/18 14:00 Ur Barbiturates Screen NEGATIVE (NEGATIVE) 08/24/18 14:00 Ur Tricyclics Screen NEGATIVE (NEGATIVE) 08/24/18 14:00 Ur Phencyclidine Scrn NEGATIVE (NEGATIVE) 08/24/18 14:00 Ur Amphetamine Screen NEGATIVE (NEGATIVE) 08/24/18 14:00 U Methamphetamines Scrn NEGATIVE (NEGATIVE) 08/24/18 14:00 U Benzodiazepines Scrn NEGATIVE (NEGATIVE) 08/24/18 14:00 Urine Cocaine Screen NEGATIVE (NEGATIVE) 08/24/18 14:00 U Cannabinoids Screen NEGATIVE (NEGATIVE) 08/24/18 14:00 Ethyl Alcohol < 5.0 mg/dL 08/24/18 08:12 Serum Ketones SMALL (NEGATIVE) H 08/24/18 10:03 - Procedures Procedures: Procedures EXCISION OF DUODENUM, ENDO, DIAGN (03/10/18) EXCISION OF LOWER ESOPHAGUS, ENDO, DIAGN (03/10/18) EXCISION OF STOMACH, ENDO, DIAGN (03/10/18) Sepsis Event Note (H) - Evaluation Current Stage of Sepsis: Ruled out
[2018-08-26 18:29] LABS: CALCIUM 8.6 mg/dL (8.5-10.3); CREATININE 0.4 mg/dL (0.6-1.2)
[2018-08-26] MEDS ORDERED: INSULIN GLARGINE 300 UNIT/3 ML PEN SUBQ SCH ×2 (21:00)
[2018-08-27] MEDS: SODIUM CHLORIDE FLUSH 0.9% 10 ML SYRINGE IVP SCH ×2 (01:04→08:11)
[2018-08-27] MEDS: NS W/40 MEQ KCL 1,000 ML IV SCH (05:37)
[2018-08-27] MEDS: SODIUM CHLORIDE FLUSH 0.9% 10 ML SYRINGE IVP PRN (06:28)
[2018-08-27] MEDS: PANTOPRAZOLE 40 MG VIAL IVP SCH (06:28)
[2018-08-27] MEDS: METOCLOPRAMIDE 10 MG TABLET PO SCH ×2 (06:29→11:05)
[2018-08-27 06:49] LABS: CALCIUM 8.5 mg/dL (8.5-10.3); CREATININE 0.4 mg/dL (0.6-1.2); MAGNESIUM 1.8 mg/dL (1.7-2.8)
[2018-08-27] MEDS ORDERED: POTASSIUM CHLORIDE 20 MEQ/15 ML UDC PO SCH (08:00)
[2018-08-27] MEDS: KETOROLAC 30 MG/ML VIAL IVP PRN (08:10)
[2018-08-27] MEDS: POLYETHYLENE GLYCOL 3350 17 GM PACKET PO SCH (08:11)
[2018-08-27] MEDS: POTASSIUM CHLORIDE 20 MEQ TABLET PO SCH (11:04)
[2018-08-27 11:20] VITALS: BP 124/86
--- NOTE | 2018-08-27 12:06 | Discharge Plan ---
Discharge Plan Disposition: 01 Home, Self Care Condition: Stable Prescriptions: Ondansetron [Zofran Odt] 8 mg SL Q6H PRN #10 tab.rapdis PRN Reason: Nausea / Vomiting Diet: Diabetic Activity Restrictions: Activity as Tolerated Instruction Topics: Kidney Disease Protein Amount, Diabetes Carbs Fats Protein Additional Instructions or Follow Up instructions: Resume your pre-hospital medications EXCEPT: Take only 20 Units of Lantus Insulin in the evening, until you can eat more, then go back to 30 Units. You may NOT NEED ANY Regular Insulin with meals, until you are eating more. A new prescription for anti-nausea dissolving lozenge (Zofran sublingual) was sent to [facility], for you to use for the attacks of nausea and vomiting. A meeting is being arranged for 08/29, with your caregivers and Delivery Consultant, set up by our Import Export Manager, Huyen. I hope this helps. See your PCP in follow-up this month! If you have new or worsening symptoms, come to the ER. No Smoking: If you smoke, Please STOP! Call for help. Follow-up with: Ailin Kumar DNP [Primary Care Provider] -
--- NOTE | 2018-08-28 22:43 | DISCHARGE SUMMARY ---
Physician: Zoie Barakat MD DATE OF ADMISSION: 08/24/2018 DATE OF DISCHARGE: 08/27/2018 HISTORY OF PRESENT ILLNESS: This is a 18-year-old male with a history of type 1 diabetes, noncompliance, frequent admissions for DKA and also for nausea, vomiting and abdominal pain. In 2018 he has been here at least 20 times. He was just discharged approximately 4 days ago for similar complaints and comes back in with similar nausea, vomiting and abdominal pain and was placed in Observation for management, including hydration. He was not in DKA at this time. HOSPITAL COURSE AND DISCHARGE DIAGNOSES 1. Gastritis. The patient describes abdominal pain and nausea that comes and goes. He was put on antacid treatment which may have helped symptoms a bit. His diet was advanced as tolerated. 2. Diabetic gastroparesis. Potentially the patient does not use his scheduled Reglan before meals and at bedtime, which does help him with N/V, and it was used here. 3. Diabetes type 1, uncontrolled. Due to his anorexia from nausea and abdominal pain, he had some low glucose levels, and his meal time insulin was canceled and his Lantus dose was decreased. If he is able to keep eating then his previous doses of Lantus and Regular insulin can be used. 4. Hypokalemia. This was felt to be from poor p.o. intake. It was replaced. 5. Depression. The patient was kept on his Prozac. He is very withdrawn, has minimal interaction with staff, prefers to sleep and keep the room dark. He was seen several times by social workers who offered a family conference to include his outpatient disease case manager rn. The patient voiced agreement with this. Potentially this is arranged for 08/29/2018, the details are known by the director social welfare Huyen Gibson LABORATORY AND IMAGING: Reviewed and summarized above. CONDITION AT DISCHARGE: Stable. PHYSICAL EXAMINATION VITAL SIGNS: Blood pressure 150/100, heart rate 98. Afebrile. Room air saturation 100%. HEENT: Unremarkable. NECK: Unremarkable. CHEST: Clear. HEART: Sounds normal. ABDOMEN: Soft, normal bowel sounds. EXTREMITIES: No edema. NEUROLOGIC: Intact. ALLERGIES: NONE. DISCHARGE MEDICATIONS 1. Prozac 40 mg daily. 2. Gabapentin 300 mg daily. 3. New prescription for Zofran sublingual 8 mg q.6 hours p.r.n. nausea. 4. Reglan 10 mg before meals and at bedtime. 5. Lantus insulin 20 units on the last day he was here, previously he was on 30 or 40 units in the p.m. 6. Also NovoLog Aspart insulin 5 units subcutaneous t.i.d. with meals. CODE STATUS: FULL CODE. Time required to complete this entire discharge, dictation: 30 minutes. cc: JUAN Nicolas TD: 08/28/2018 22:25 MTDD
== END 2018-08-27 13:04 | disposition home or self-care (01) ==
LOC: EDUNIT# → ED 03:23 → OBS 05:48
PROVIDERS: ADMIT Family Medicine Sports Medicine; ATTEND Internal Medicine
DX: K29.70 Gastritis, unspecified, without bleeding (principal); E10.10 Type 1 diabetes mellitus with ketoacidosis without coma; E87.6 Hypokalemia; F32.9 Major depressive disorder, single episode, unspecified; E86.0 Dehydration; E10.42 Type 1 diabetes mellitus with diabetic polyneuropathy; T45.0X6A Underdosing of antiallergic and antiemetic drugs, initial encounter; Z91.128 Patient's intentional underdosing of medication regimen for other reason; N31.9 Neuromuscular dysfunction of bladder, unspecified; E10.649 Type 1 diabetes mellitus with hypoglycemia without coma; E10.43 Type 1 diabetes mellitus with diabetic autonomic (poly)neuropathy; K31.84 Gastroparesis; I10 Essential (primary) hypertension; F41.9 Anxiety disorder, unspecified; Z79.4 Long term (current) use of insulin; Z79.899 Other long term (current) drug therapy
CPT/HCPCS: 36415; 51701; 74018; 80048; 80053; 80306; 80320; 81003; 82009; 82803; 83036; 83690; 83735; 84100; 84484; 85025; 93005; 96361; 96365; 96366; 96367; 96375; 96376; 99283; 99284; A9270; G0378; J0131; J1200; J1815; J2060; J2765; 81001; 87086

== ENCOUNTER 2018-08-28 06:38 | Emergency (ER) | payer MEDICAID ==
[2018-08-28 06:44] VITALS: BP 158/103
[2018-08-28] MEDS ORDERED: ONDANSETRON 4 MG/2 ML VIAL IVP STA (07:02)
[2018-08-28] MEDS ORDERED: SODIUM CHLORIDE 0.9% 1,000 ML IV ONE (07:02)
[2018-08-28 07:04] LABS: BASOPHILS % (AUTO) 0.4 %; EOSINOPHILS % (AUTO) 0.2 %; HGB - HEMOGLOBIN 12.3 g/dL (14.0-18.0); LYMPHOCYTES # (AUTO) 0.7 10^3/uL (1.5-3.5); LYMPHOCYTES % (AUTO) 13.6 %; MEAN CORPUSCULAR HEMOGLOBIN 28.8 pg (27.0-31.0); MEAN CORPUSCULAR HGB CONC 33.6 g/dL (32.0-36.0); MEAN CORPUSCULAR VOLUME 85.8 fL (80.0-94.0); MEAN PLATELET VOLUME 7.4 fL (7.4-11.4); MONOCYTES # (AUTO) 0.3 10^3/uL (0.0-1.0); MONOCYTES % (AUTO) 5.5 %; NEUTROPHILS # (AUTO) 3.8 10^3/uL (1.5-6.6); NEUTROPHILS % (AUTO) 80.3 %; PLT - PLATELET COUNT 294 10^3/uL (130-450); RED BLOOD COUNT 4.26 10^6/uL (4.70-6.10); RED CELL DISTRIBUTION WIDTH 13.1 % (12.0-15.0); WHITE BLOOD COUNT 4.8 x10^3/uL (4.8-10.8)
[2018-08-28 07:11] LABS: VBG BASE EXCESS -1.7 mmol/L (-2 - +2); VBG PCO2 38.5 mmHg (41-51); VBG PH 7.392 (7.31-7.41); VBG PO2 37.9 mmHg (25-47); VBG TOTAL CO2 24.1 mmol/L (24-29)
[2018-08-28 07:20] LABS: ALBUMIN 3.6 g/dL (3.2-5.5); ALBUMIN/GLOBULIN RATIO 1.2 (1.0-2.2); ALKALINE PHOSPHATASE 78 IU/L (42-121); ALT ALANINE AMINOTRANSFERASE 10 IU/L (10-60); AST ASPARTATE AMINOTRANSFERASE 11 IU/L (10-42); BILIRUBIN,TOTAL 0.7 mg/dL (0.2-1.0); BUN - BLOOD UREA NITROGEN 8 mg/dL (6-20); CALCIUM 8.5 mg/dL (8.5-10.3); CARBON DIOXIDE - CO2 23 mmol/L (21-32); CHLORIDE 103 mmol/L (101-111); CREATININE 0.4 mg/dL (0.6-1.2); GFR - MDRD 274 (>89); GLUCOSE 104 mg/dL (70-100); LIPASE 22 U/L (22-51); SODIUM 135 mmol/L (135-145); TOTAL PROTEIN 6.7 g/dL (6.7-8.2)
[2018-08-28 07:23] LABS: KETONES, SERUM (ACETEST) SMALL (NEGATIVE)
[2018-08-28] MEDS ORDERED: diphenhydrAMINE INJ 50 MG/ML VIAL IVP STA (07:23)
[2018-08-28] MEDS ORDERED: PROMETHAZINE INJ 25 MG in SODIUM CHLORIDE 0.9% 50 ML IV STA (07:23)
[2018-08-28] MEDS ORDERED: HYDROcod/ACETAM 10 MG/325 MG TABLET PO STA (07:23)
--- NOTE | 2018-08-28 07:26 | ED Physician Documentation ---
History of Present Illness - Stated complaint Stated Complaint: N/V - Chief complaint Chief Complaint: General - Additonal information Additional information: 18-year-old male who is well-known to our emergency department hospital returns for ongoing nausea and vomiting and chronic abdominal pain. The patient reports his typical nausea and vomiting with generalized abdominal cramping. The patient denies fevers, chills, any focal area of abdominal pain or dysuria. No blood in the vomit or stools. No other new or different symptoms. No other associated symptoms. No triggering factors. No relieving factors. Review of Systems Constitutional: denies: Fever, Chills Eyes: denies: Discharge Ears: denies: Ear pain Nose: denies: Congestion Throat: denies: Sore throat Cardiac: denies: Chest pain / pressure Respiratory: denies: Cough GI: reports: Abdominal Pain, Nausea, Vomiting. denies: Diarrhea : denies: Dysuria Skin: denies: Rash Musculoskeletal: denies: Neck pain Neurologic: denies: Generalized weakness Immunocompromised: denies: Chemotherapy PD PAST MEDICAL HISTORY - Past Medical History Cardiovascular: None Respiratory: None Neuro: Peripheral neuropathy Endocrine/Autoimmune: Type 1 diabetes GI: Other : None HEENT: None Psych: Depression, Anxiety Musculoskeletal: None Derm: None - Past Surgical History Past Surgical History: No - Present Medications Home Medications: Ambulatory Orders Medication Instructions Recorded Confirmed Fluoxetine HCl [Prozac] 40 mg PO DAILY #30 capsule 08/20/18 08/24/18 Insulin Aspart [NovoLOG] 5 unit SUBQ TIDWM #3 pen 08/20/18 08/24/18 Insulin Glargine [Lantus Solostar] 40 unit SUBQ DAILY PM #4 pen 08/20/18 08/24/18 Metoclopramide [Reglan] 10 mg PO Q6H PRN #30 tablet 08/20/18 08/24/18 Gabapentin 300 mg PO DAILY 08/24/18 08/24/18 Ondansetron [Zofran Odt] 8 mg SL Q6H PRN #10 tab.rapdis 08/27/18 - Allergies Allergies/Adverse Reactions: Allergies Allergy/AdvReac Type Severity Reaction Status Date / Time No Known Drug Allergies Allergy Verified 08/28/18 06:43 - Social History Does the pt smoke?: No Smoking Status: Never smoker Does the pt drink ETOH?: Yes Does the pt have substance abuse?: No - Immunizations Immunizations are current?: Yes - POLST Patient has POLST: No POLST Status: Full Code PD ED PE NORMAL - General General: Alert and oriented X 3 - HEENT HEENT: Atraumatic, PERRL, EOMI, Ears normal - Neck Neck: Supple, no meningeal sign - Cardiac Cardiac: RRR, Strong equal pulses - Respiratory Respiratory: No respiratory distress, Clear bilaterally - Abdomen Abdomen: Soft, Non distended. No: Non tender (The patient has generalized abdominal tenderness, there is no focal area of tenderness, no rebound or peritoneal signs.) - Derm Derm: Normal color - Extremities Extremities: No deformity - Neuro 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, Normal speech - Psych Psych: Normal mood Results - Vitals Vitals: Vital Signs - 24 hr 08/28/18 06:40 Temperature 36.7 C Heart Rate 117 H Respiratory 20 Rate Blood Pressure 158/103 H O2 Saturation 100 Oxygen O2 Source Room air - Labs Labs: Laboratory Tests 08/28/18 08/28/18 08/28/18 06:56 06:56 06:56 WBC 4.8 RBC 4.26 L Hgb 12.3 L Hct 36.5 L MCV 85.8 MCH 28.8 MCHC 33.6 RDW 13.1 Plt Count 294 MPV 7.4 Neut # (Auto) 3.8 Lymph # (Auto) 0.7 L [place] # (Auto) 0.3 Eos # (Auto) 0.0 Baso # (Auto) 0.0 Absolute Nucleated RBC 0.00 Nucleated RBC % 0.0 VBG pH 7.392 VBG pCO2 38.5 L VBG pO2 37.9 VBG HCO3 22.9 L VBG Total CO2 24.1 VBG O2 Saturation 78.0 VBG Base Excess -1.7 Sodium 135 Potassium 3.2 L Chloride 103 Carbon Dioxide 23 Anion Gap 9.0 BUN 8 Creatinine 0.4 L Estimated GFR (MDRD) 274 Glucose 104 H Calcium 8.5 Total Bilirubin 0.7 AST 11 ALT 10 Alkaline Phosphatase 78 Total Protein 6.7 Albumin 3.6 Globulin 3.1 Albumin/Globulin Ratio 1.2 Lipase 22 Serum Ketones SMALL H PD MEDICAL DECISION MAKING - ED course ED course: On reevaluation the patient is resting comfortably, the patient was able to tolerate oral medications. On reexamination of the patient's abdomen he has no focal area of abdominal tenderness, rebound or peritoneal signs. The patient's lab work does not show any significant abnormalities. Presently, today symptoms seem to represent the patient's chronic related symptoms. I do not see any acute findings on his physical exam or laboratory evaluation that would necessi lei emergent cross-sectional imaging or ultrasonography. Currently, the patient appears appropriate for discharge and ongoing outpatient management. I recommended that the patient follow-up with primary care for a referral to GI. The patient understands and agrees to the plan. Departure - Departure Disposition: 01 Home, Self Care Clinical Impression: Chronic abdominal pain Nausea & vomiting Qualifiers: Vomiting type: unspecified Vomiting Intractability: unspecified Qualified Code(s): R11.2 - Nausea with vomiting, unspecified Condition: Good Follow-Up: Ailin Kumar DNP [Primary Care Provider] - Tomorrow (Please ask your primary care physician to arrange for an outpatient referral to gastroenterology for further workup and assessment of your chronic nausea vomiting and chronic abdominal pain.) Comments: Please return to the emergency department for worsening symptoms or any concerns.
== END 2018-08-28 08:55 | disposition home or self-care (01) ==
LOC: EDUNIT# → ED 06:38
DX: R10.9 Unspecified abdominal pain (principal); G89.29 Other chronic pain; R11.2 Nausea with vomiting, unspecified; E10.42 Type 1 diabetes mellitus with diabetic polyneuropathy
CPT/HCPCS: 36415; 80053; 82009; 82803; 83690; 85025; 96361; 96365; 96375; 99283; A9270; J1200; J7040

== ENCOUNTER 2018-11-24 09:54 | Emergency (ER) | payer MEDICAID ==
--- NOTE | 2018-11-24 11:00 | ED Physician Documentation ---
History of Present Illness - Stated complaint Stated Complaint: EYE PAIN - Chief complaint Chief Complaint: Wound - History obtained from History obtained from: Patient - History of Present Illness Timing: How many days ago (3) - Additonal information Additional information: 18-year-old type I brittle diabetic has developed pain and redness to the right side of his face. He has had increase in the amount of swelling and redness and pain over the last 3 days. He has not had any drainage from the area. His sugars been running high. Review of Systems Constitutional: reports: Fatigue. denies: Fever, Chills Eyes: denies: Decreased vision Ears: denies: Ear pain Nose: denies: Rhinorrhea / runny nose, Congestion Throat: denies: Sore throat Cardiac: denies: Chest pain / pressure, Palpitations Respiratory: denies: Dyspnea, Cough GI: denies: Abdominal Pain, Nausea, Vomiting : denies: Dysuria, Frequency Skin: reports: Other (tender red area to the right lateral face.) Musculoskeletal: denies: Neck pain, Back pain, Extremity pain Neurologic: denies: Generalized weakness, Focal weakness, Numbness PD PAST MEDICAL HISTORY - Past Medical History Cardiovascular: None Respiratory: None Neuro: Peripheral neuropathy Endocrine/Autoimmune: Type 1 diabetes GI: Other : None HEENT: None Psych: Depression, Anxiety Musculoskeletal: None Derm: None - Past Surgical History Past Surgical History: No - Present Medications Home Medications: Ambulatory Orders Medication Instructions Recorded Confirmed RX: Fluoxetine HCl [Prozac] 40 mg PO DAILY #30 capsule 08/20/18 08/24/18 RX: Insulin Aspart [NovoLOG] 5 unit SUBQ TIDWM #3 pen 08/20/18 08/24/18 RX: Insulin Glargine [Lantus 40 unit SUBQ DAILY PM #4 pen 08/20/18 08/24/18 Solostar] RX: Metoclopramide [Reglan] 10 mg PO Q6H PRN #30 tablet 08/20/18 08/24/18 RX: Gabapentin 300 mg PO DAILY 08/24/18 08/24/18 Ondansetron [Zofran Odt] 8 mg SL Q6H PRN #10 tab.rapdis 08/27/18 Amox/Clav 875/125 [Augmentin] 1 each PO Q12H #14 tablet 11/24/18 Hydrocodone/Acetaminophen 1 - 2 each PO Q6H PRN #14 tablet 11/24/18 [Hydrocodon-Acetaminophen 5-325] Metoclopramide [Reglan] 10 mg PO Q6H #30 tablet 11/24/18 Sulfamethoxazole/Trimethoprim 1 each PO BID #14 tablet 11/24/18 [Sulfamethoxazole-Tmp Ds Tablet] - Allergies Allergies/Adverse Reactions: Allergies Allergy/AdvReac Type Severity Reaction Status Date / Time No Known Drug Allergies Allergy Verified 11/24/18 10:09 - Social History Does the pt smoke?: No Smoking Status: Never smoker Does the pt drink ETOH?: Yes Does the pt have substance abuse?: No - Immunizations Immunizations are current?: Yes - POLST Patient has POLST: No POLST Status: Full Code PD ED PE NORMAL - Vitals Vital signs reviewed: Yes (tachy and hypertensive) - General General: Alert and oriented X 3, No acute distress, Well developed/nourished - HEENT HEENT: Atraumatic, PERRL, EOMI, Other (There is an area of erythema, swelling and tenderness to the right lateral liat-orbital tissues with swelling to the lid and an area of skin breakdown without overt drainage. There is no fluctuance. ) - Neck Neck: Supple, no meningeal sign, No bony TTP - Cardiac Cardiac: Other (tachy to 130) - Respiratory Respiratory: No respiratory distress, Clear bilaterally - Abdomen Abdomen: Soft, Non tender - Back Back: No CVA TTP, No spinal TTP - Derm Derm: Normal color, Warm and dry - Extremities Extremities: No deformity, No edema - Neuro 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, animal shelter supervisor 2-12 intact, No motor deficit, No sensory deficit, Normal speech Eye Opening: Spontaneous Motor: Obeys Commands Verbal: Oriented GCS Score: 15 - Psych Psych: Normal mood, Normal affect Results - Vitals Vitals: Vital Signs - 24 hr 11/24/18 11/24/18 11/24/18 10:07 11:56 13:52 Temperature 37.0 C Heart Rate 116 H 114 H Respiratory 18 Rate Blood Pressure 122/91 H 121/79 O2 Saturation 98 99 97 11/24/18 15:24 Temperature 36.6 C Heart Rate 109 H Respiratory 12 Rate Blood Pressure 121/82 H O2 Saturation 98 Oxygen O2 Source Room air - Labs Labs: Laboratory Tests 11/24/18 11/24/18 11/24/18 11:20 11:44 11:44 WBC 6.2 RBC 4.55 L Hgb 12.7 L Hct 39.0 L MCV 85.7 MCH 27.9 MCHC 32.6 RDW 15.6 H Plt Count 214 MPV 8.1 Neut # (Auto) 4.9 Lymph # (Auto) 0.7 L Brown # (Auto) 0.5 Eos # (Auto) 0.0 Baso # (Auto) 0.0 Absolute Nucleated RBC 0.00 Nucleated RBC % 0.0 VBG pH VBG pCO2 VBG pO2 VBG HCO3 VBG Total CO2 VBG O2 Saturation VBG Base Excess Sodium 130 L Potassium 3.9 Chloride 95 L Carbon Dioxide 24 Anion Gap 11.0 BUN 13 Creatinine 0.5 L Estimated GFR (MDRD) 212 Glucose 581 H* POC Whole Bld Glucose 546 H* Calcium 9.1 Total Bilirubin 0.7 AST 13 ALT 14 Alkaline Phosphatase 98 Total Protein 7.7 Albumin 3.6 Globulin 4.1 Albumin/Globulin Ratio 0.9 L Lipase 33 Serum Ketones NEGATIVE 11/24/18 11/24/18 11/24/18 11:44 13:04 14:24 WBC RBC Hgb Hct MCV MCH MCHC RDW Plt Count MPV Neut # (Auto) Lymph # (Auto) Brown # (Auto) Eos # (Auto) Baso # (Auto) Absolute Nucleated RBC Nucleated RBC % VBG pH 7.398 VBG pCO2 38.6 L VBG pO2 57.0 H VBG HCO3 23.8 VBG Total CO2 25.0 VBG O2 Saturation 89.0 H VBG Base Excess -1.0 Sodium Potassium Chloride Carbon Dioxide Anion Gap BUN Creatinine Estimated GFR (MDRD) Glucose POC Whole Bld Glucose 386 H 325 H Calcium Total Bilirubin AST ALT Alkaline Phosphatase Total Protein Albumin Globulin Albumin/Globulin Ratio Lipase Serum Ketones 11/24/18 15:36 WBC RBC Hgb Hct MCV MCH MCHC RDW Plt Count MPV Neut # (Auto) Lymph # (Auto) Brown # (Auto) Eos # (Auto) Baso # (Auto) Absolute Nucleated RBC Nucleated RBC % VBG pH VBG pCO2 VBG pO2 VBG HCO3 VBG Total CO2 VBG O2 Saturation VBG Base Excess Sodium Potassium Chloride Carbon Dioxide Anion Gap BUN Creatinine Estimated GFR (MDRD) Glucose POC Whole Bld Glucose 237 H Calcium Total Bilirubin AST ALT Alkaline Phosphatase Total Protein Albumin Globulin Albumin/Globulin Ratio Lipase Serum Ketones PD MEDICAL DECISION MAKING - ED course Complexity details: considered differential, d/w patient ED course: 18-year-old diabetic male well-known to the emergency department for repeated episodes of diabetic gastroparesis and diabetes [id number] has developed an infection on the right side of his face he has some periorbital swelling and erythema and today he does not appear ill. He is talking more clearly than usual and more awake than usual. His blood sugar is markedly elevated he is not in DKA he is administered intravenous saline and is placed on a insulin drip at 4 units an hour. Sequentially his sugars come down he is administered vancomycin and Rocephin to treat the abscess to the right forehead and he does have some blanching of this while he is here in the emergency department. He also has some urinary retention and he is encouraged to go back into the bathroom credae as he is urinating and he is able to empty his bladder completely. On his initial attempt he emptied it only to a postvoid residual of 962 mL. He subsequently was able to urinate 1300 mL's of urine. Departure - Departure Disposition: 01 Home, Self Care Clinical Impression: Diabetes type 1, uncontrolled, Facial abscess Condition: Stable Instructions: ED Staph Infec Abx Tx Only, ED Hyperglycemia Diabetic Follow-Up: Ailin Kumar DNP [Primary Care Provider] - Prescriptions: Amox/Clav 875/125 [Augmentin] 1 each PO Q12H #14 tablet Hydrocodone/Acetaminophen [Hydrocodon-Acetaminophen 5-325] 1 - 2 each PO Q6H PRN #14 tablet PRN Reason: pain Metoclopramide [Reglan] 10 mg PO Q6H #30 tablet Sulfamethoxazole/Trimethoprim [Sulfamethoxazole-Tmp Ds Tablet] 1 each PO BID #14 tablet Discharge Date/Time: 11/24/18 15:52
[2018-11-24] MEDS ORDERED: INSULIN REGULAR HUMAN 100 UNIT in SODIUM CHLORIDE 0.9% 100ML 99 ML IV STA (11:28)
[2018-11-24] MEDS ORDERED: SODIUM CHLORIDE 0.9% 1,000 ML IV ONE (11:28)
[2018-11-24 11:48] LABS: BASOPHILS % (AUTO) 0.4 %; EOSINOPHILS % (AUTO) 0.6 %; HGB - HEMOGLOBIN 12.7 g/dL (14.0-18.0); LYMPHOCYTES # (AUTO) 0.7 10^3/uL (1.5-3.5); LYMPHOCYTES % (AUTO) 11.7 %; MEAN CORPUSCULAR HEMOGLOBIN 27.9 pg (27.0-31.0); MEAN CORPUSCULAR HGB CONC 32.6 g/dL (32.0-36.0); MEAN CORPUSCULAR VOLUME 85.7 fL (80.0-94.0); MEAN PLATELET VOLUME 8.1 fL (7.4-11.4); MONOCYTES # (AUTO) 0.5 10^3/uL (0.0-1.0); MONOCYTES % (AUTO) 8.2 %; NEUTROPHILS # (AUTO) 4.9 10^3/uL (1.5-6.6); NEUTROPHILS % (AUTO) 79.1 %; PLT - PLATELET COUNT 214 10^3/uL (130-450); RED BLOOD COUNT 4.55 10^6/uL (4.70-6.10); RED CELL DISTRIBUTION WIDTH 15.6 % (12.0-15.0); WHITE BLOOD COUNT 6.2 x10^3/uL (4.8-10.8)
[2018-11-24 11:59] LABS: VBG PCO2 38.6 mmHg (41-51); VBG PH 7.398 (7.31-7.41)
[2018-11-24 12:07] LABS: ALBUMIN 3.6 g/dL (3.2-5.5); ALBUMIN/GLOBULIN RATIO 0.9 (1.0-2.2); ALKALINE PHOSPHATASE 98 IU/L (42-121); ALT ALANINE AMINOTRANSFERASE 14 IU/L (10-60); AST ASPARTATE AMINOTRANSFERASE 13 IU/L (10-42); BILIRUBIN,TOTAL 0.7 mg/dL (0.2-1.0); BUN - BLOOD UREA NITROGEN 13 mg/dL (6-20); CALCIUM 9.1 mg/dL (8.5-10.3); CARBON DIOXIDE - CO2 24 mmol/L (21-32); CHLORIDE 95 mmol/L (101-111); CREATININE 0.5 mg/dL (0.6-1.2); GFR - MDRD 212 (>89); LIPASE 33 U/L (22-51); SODIUM 130 mmol/L (135-145); TOTAL PROTEIN 7.7 g/dL (6.7-8.2)
[2018-11-24 12:09] LABS: GLUCOSE 581 mg/dL (70-100); KETONES, SERUM (ACETEST) NEGATIVE (NEGATIVE)
[2018-11-24] MEDS ORDERED: METOCLOPRAMIDE 10 MG/2 ML VIAL IVP STA (12:20)
[2018-11-24] MEDS ORDERED: VANCOMYCIN INJ 1 GM in SODIUM CHLORIDE 0.9% 500 ML IV STA (12:59)
[2018-11-24] MEDS ORDERED: cefTRIAXone 1 GM in SODIUM CHLORIDE 0.9% MINIBAG 100 ML IV STA (13:00)
[2018-11-24] MEDS ORDERED: KETOROLAC 30 MG/ML VIAL IVP STA (13:56)
[2018-11-24 15:25] VITALS: BP 121/82
== END 2018-11-24 15:52 | disposition home or self-care (01) ==
LOC: ED 09:54
DX: E10.42 Type 1 diabetes mellitus with diabetic polyneuropathy (principal); L02.01 Cutaneous abscess of face
CPT/HCPCS: 36415; 80053; 82009; 82803; 83690; 85025; 87040; 87181; 96361; 96365; 96368; 96375; 99283; 99284; J1815; J2765; J3370

== ENCOUNTER 2018-11-27 20:53 | Outpatient (CLI) | payer MEDICAID | END 2018-11-27 20:54 | disposition critical access hospital (66) | LOC: EMS 20:53 | PROVIDERS: ATTEND Surgery | DX: R11.2 Nausea with vomiting, unspecified (principal) ==

== ENCOUNTER 2018-11-27 21:09 | Inpatient (IN) | payer MEDICAID ==
[2018-11-27 21:54] LABS: BASOPHILS % (AUTO) 0.8 %; EOSINOPHILS % (AUTO) 0.1 %; HGB - HEMOGLOBIN 14.1 g/dL (14.0-18.0); LYMPHOCYTES # (AUTO) 0.6 10^3/uL (1.5-3.5); LYMPHOCYTES % (AUTO) 13.5 %; MEAN CORPUSCULAR HEMOGLOBIN 27.7 pg (27.0-31.0); MEAN CORPUSCULAR HGB CONC 32.8 g/dL (32.0-36.0); MEAN CORPUSCULAR VOLUME 84.4 fL (80.0-94.0); MONOCYTES # (AUTO) 0.1 10^3/uL (0.0-1.0); NEUTROPHILS % (AUTO) 83.6 %; PLT - PLATELET COUNT 317 10^3/uL (130-450); RED BLOOD COUNT 5.09 10^6/uL (4.70-6.10); RED CELL DISTRIBUTION WIDTH 15.4 % (12.0-15.0); WHITE BLOOD COUNT 4.8 x10^3/uL (4.8-10.8)
[2018-11-27] MEDS ORDERED: SODIUM CHLORIDE 0.9% 1,000 ML IV ONE (21:59)
[2018-11-27 22:06] LABS: ALBUMIN 4.1 g/dL (3.2-5.5); ALBUMIN/GLOBULIN RATIO 0.8 (1.0-2.2); BILIRUBIN,TOTAL 1.3 mg/dL (0.2-1.0); CALCIUM 10.1 mg/dL (8.5-10.3); CREATININE 0.7 mg/dL (0.6-1.2); TOTAL PROTEIN 9.4 g/dL (6.7-8.2)
[2018-11-27] MEDS ORDERED: METOCLOPRAMIDE 10 MG/2 ML VIAL IVP STA (22:07)
[2018-11-27] MEDS ORDERED: ACETAMINOPHEN 1,000 MG/100 ML 100 ML IV STA (22:07)
[2018-11-27] MEDS ORDERED: KETOROLAC 30 MG/ML VIAL IVP STA (22:08)
[2018-11-27] MEDS ORDERED: INSULIN REGULAR HUMAN 100 UNIT/1 ML 10 ML MDV IVP STA (22:08)
[2018-11-27] MEDS ORDERED: SODIUM CHLORIDE 0.9% 1,000 ML IV STA ×2 (22:15→23:55)
[2018-11-27] MEDS ORDERED: diphenhydrAMINE INJ 50 MG/ML VIAL IVP STA (22:15)
--- NOTE | 2018-11-27 22:19 | ED Physician Documentation ---
PD HPI NVD - Stated complaint Stated Complaint: N/V - Chief complaint Chief Complaint: Abd Pain - History obtained from History obtained from: Patient - History of Present Illness Timing - onset: How many days ago (2-3) Timing - duration: Days Timing - details: Gradual onset, Waxing and waning Pain level max: 10 Pain level now: 10 Associated symptoms: Abdominal pain. No: Fever Improved by: Other (nothing) Worsened by: Moving, Position, Palpation Similar symptoms before: Other (frequent [facility] ED visits for same c/o) Recently seen: Emergency Dept (T+R 3 days ago from this ED) - Additonal information Additional information: c/o 2-3 days of nausea, vomiting, and abdominal pain. He was T+R 3 days ago from this ED for right-sided facial abscess, is on antibiotics for this. He says later on the day of discharge, he developed the nausea, vomiting, and abdominal pain. He has many [facility] ED visits for same symptoms. He says he cannot keep anything down including the prescribed antibiotics Review of Systems Constitutional: denies: Fever, Chills, Sweats Eyes: reports: Reviewed and negative Ears: reports: Reviewed and negative Nose: reports: Reviewed and negative Throat: reports: Reviewed and negative Cardiac: reports: Reviewed and negative Respiratory: reports: Reviewed and negative GI: reports: Abdominal Pain, Nausea, Vomiting, Diarrhea : denies: Dysuria, Frequency Skin: reports: Lesions (right facial infection, improving) Musculoskeletal: reports: Reviewed and negative Neurologic: reports: Reviewed and negative PD PAST MEDICAL HISTORY - Past Medical History Past Medical History: Yes Cardiovascular: None Respiratory: None Neuro: Peripheral neuropathy Endocrine/Autoimmune: Type 1 diabetes GI: Other : None HEENT: None Psych: Depression, Anxiety Musculoskeletal: None Derm: None - Past Surgical History Past Surgical History: No - Present Medications Home Medications: Ambulatory Orders Medication Instructions Recorded Confirmed Insulin Aspart [NovoLOG] 5 unit SUBQ TIDWM #3 pen 08/20/18 08/24/18 Insulin Glargine [Lantus Solostar] 40 unit SUBQ DAILY PM #4 pen 08/20/18 08/24/18 Amox/Clav 875/125 [Augmentin] 1 each PO Q12H #14 tablet 11/24/18 Sulfamethoxazole/Trimethoprim 1 each PO BID #14 tablet 11/24/18 [Sulfamethoxazole-Tmp Ds Tablet] - Allergies Allergies/Adverse Reactions: Allergies Allergy/AdvReac Type Severity Reaction Status Date / Time No Known Drug Allergies Allergy Verified 11/24/18 10:09 - Social History Does the pt smoke?: No Smoking Status: Never smoker Does the pt drink ETOH?: Yes Does the pt have substance abuse?: No - Immunizations Immunizations are current?: Yes - POLST Patient has POLST: No POLST Status: Full Code PD ED PE NORMAL - Vitals Vital signs reviewed: Yes - General General: Alert and oriented X 3, No acute distress, Well developed/nourished - HEENT HEENT: Other (pasty/tacky mucous membranes) - Neck Neck: Supple, no meningeal sign - Cardiac Cardiac: No murmur - Respiratory Respiratory: No respiratory distress, Clear bilaterally - Abdomen Abdomen: Soft, Non distended, Other (moans with palpation of abd, each of the four quadrants as well as periumbical. there is a component of distractability ) - Back Back: No CVA TTP - Derm Derm: Warm and dry - Extremities Extremities: No edema - Neuro 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 PD ED PE EXPANDED - HEENT HEENT Visual: 1 - swelling (approximately 1 cm diameter raised erythema that is mildly tender and nonfluctuant) - Cardiac Cardiac: Tachy, Regular Rhythm Results - Vitals Vitals: Vital Signs - 24 hr 11/27/18 11/27/18 11/27/18 21:05 21:29 23:29 Temperature 36.6 C 36.6 C Heart Rate 131 H 131 H 130 H Respiratory 20 20 17 Rate Blood Pressure 125/99 H 125/99 H 143/98 H O2 Saturation 99 99 99 11/28/18 11/28/18 11/28/18 01:00 03:00 03:28 Temperature 37.2 C Heart Rate 123 H 120 H 130 H Respiratory 16 16 Rate Blood Pressure 149/94 H 140/100 H O2 Saturation 100 100 11/28/18 05:00 Temperature Heart Rate 130 H Respiratory 18 Rate Blood Pressure 142/96 H O2 Saturation 98 Oxygen O2 Source Room air - Labs Labs: Laboratory Tests 11/27/18 11/27/18 11/27/18 21:45 21:45 21:45 WBC 4.8 RBC 5.09 Hgb 14.1 Hct 43.0 MCV 84.4 MCH 27.7 MCHC 32.8 RDW 15.4 H Plt Count 317 MPV 8.0 Neut # (Auto) 4.0 Lymph # (Auto) 0.6 L [place] # (Auto) 0.1 Eos # (Auto) 0.0 Baso # (Auto) 0.0 Absolute Nucleated RBC 0.00 Nucleated RBC % 0.0 VBG pH VBG pCO2 VBG pO2 VBG HCO3 VBG Total CO2 VBG O2 Saturation VBG Base Excess Sodium 134 L Potassium 4.1 Chloride 91 L Carbon Dioxide 18 L Anion Gap 25.0 H BUN 19 Creatinine 0.7 Estimated GFR (MDRD) 144 Glucose 439 H Calcium 10.1 Total Bilirubin 1.3 H AST 15 ALT 16 Alkaline Phosphatase 105 Total Protein 9.4 H Albumin 4.1 Globulin 5.3 H Albumin/Globulin Ratio 0.8 L Lipase 22 Serum Ketones SMALL H 11/27/18 11/28/18 11/28/18 22:25 05:07 05:07 WBC 7.6 RBC 4.33 L Hgb 12.1 L Hct 38.3 L MCV 88.5 MCH 28.0 MCHC 31.7 L RDW 15.5 H Plt Count 265 MPV 8.0 Neut # (Auto) 7.0 H Lymph # (Auto) 0.5 L Gibson # (Auto) 0.1 Eos # (Auto) 0.0 Baso # (Auto) 0.0 Absolute Nucleated RBC 0.00 Nucleated RBC % 0.0 VBG pH 7.388 VBG pCO2 22.6 L VBG pO2 61.6 H VBG HCO3 13.3 L VBG Total CO2 14.0 L VBG O2 Saturation 90.5 H VBG Base Excess -9.5 L Sodium 143 Potassium 4.3 Chloride 109 Carbon Dioxide 14 L Anion Gap 20.0 H BUN 18 Creatinine 0.6 Estimated GFR (MDRD) 172 Glucose 301 H Calcium 9.0 Total Bilirubin AST ALT Alkaline Phosphatase Total Protein Albumin Globulin Albumin/Globulin Ratio Lipase Serum Ketones Procedures - Abscess I&D (location) Face right Preparation: Chlorhexadine, Lidocaine 1% Incision: Purulent drainage, Culture obtained, Other (small opening made with beveled edge of #18g needle; moderate amount of pus returned, sample sent for culture) Other: Pt tolerated well, Dressing applied, Antibiotic prescribed PD MEDICAL DECISION MAKING - ED course Complexity details: reviewed old records, reviewed results, re-evaluated patient , considered differential, d/w patient ED course: Patient continued to have nausea, vomiting, and abdominal pain during ED stay despite more than 2 liters NS, 8mg zofran, and 10mg Reglan. He was also given toradol and ofirmev for his pain. Also given benadryl; he requested benadryl, says it sometimes helps these symptoms in the past. I have several previous ED encounters with this patient in the past and his appearance and c/o n/v and abdominal pain are typical for my previous encounters with him. However, he continued to have vomiting which included while I was in the room and did not appear to be forced or induced by the patient. Part of the plan for discharge would be to continue PO antibiotics, which cannot be achieved without control of his nausea and vomiting. Towards the end of his ED stay, he had one episode of coffee-ground emesis which was guaiac (+) (but not grossly bloody). I performed an I+D of the facial abscess as per procedure note. I gave him a small amount (4mg) of morphine late in his stay, as hemorrhagic gastritis can be a painful condition and NSAIDs are to be avoided at this point. Departure - Departure Disposition: [address] [facility] DC/Xfer Clinical Impression: Nausea & vomiting, Facial abscess Condition: Good Discharge Date/Time: 11/28/18 06:23
[2018-11-27 22:37] LABS: VBG BASE EXCESS -9.5 mmol/L (-2 - +2); VBG PCO2 22.6 mmHg (41-51); VBG PH 7.388 (7.31-7.41); VBG PO2 61.6 mmHg (25-47)
[2018-11-27] MEDS ORDERED: VANCOMYCIN INJ 1 GM in SODIUM CHLORIDE 0.9% 500 ML IV STA (23:54)
[2018-11-27] MEDS ORDERED: LORazepam 2 MG/ML VIAL IVP STA (23:56)
[2018-11-28] MEDS ORDERED: ONDANSETRON 4 MG/2 ML VIAL IVP STA (03:38)
[2018-11-28] MEDS ORDERED: PROMETHAZINE 25 MG/1 ML VIAL IM PRN (05:18)
[2018-11-28] MEDS ORDERED: ACETAMINOPHEN 325 MG TABLET PO PRN (05:18)
[2018-11-28] MEDS ORDERED: LIDOCAINE 1% 2 ML VIAL SUBQ STA (05:18)
[2018-11-28 05:32] LABS: CREATININE 0.6 mg/dL (0.6-1.2)
[2018-11-28] MEDS ORDERED: MORPHINE 2 MG/ML CARPUJECT IVP STA (05:47)
[2018-11-28] MEDS ORDERED: FAMOTIDINE 20 MG/2 ML VIAL IVP STA (05:48)
[2018-11-28 05:49] LABS: BASOPHILS % (AUTO) 0.3 %; HGB - HEMOGLOBIN 12.1 g/dL (14.0-18.0); LYMPHOCYTES # (AUTO) 0.5 10^3/uL (1.5-3.5); LYMPHOCYTES % (AUTO) 6.4 %; MEAN CORPUSCULAR HGB CONC 31.7 g/dL (32.0-36.0); MEAN CORPUSCULAR VOLUME 88.5 fL (80.0-94.0); MONOCYTES # (AUTO) 0.1 10^3/uL (0.0-1.0); MONOCYTES % (AUTO) 1.2 %; NEUTROPHILS % (AUTO) 92.1 %; PLT - PLATELET COUNT 265 10^3/uL (130-450); RED BLOOD COUNT 4.33 10^6/uL (4.70-6.10); RED CELL DISTRIBUTION WIDTH 15.5 % (12.0-15.0); WHITE BLOOD COUNT 7.6 x10^3/uL (4.8-10.8)
[2018-11-28] MEDS ORDERED: VANCOMYCIN PER PHARMACY 0.001 GM in SODIUM CHLORIDE 0.9% 250 ML IV PRN (06:00)
[2018-11-28] MEDS ORDERED: BACITRACIN ZINC OINT 15 GM TOP ONE (06:06)
[2018-11-28] MEDS ORDERED: INSULIN REGULAR HUMAN 100 UNIT/1 ML 10 ML MDV IVP STA ×2 (06:13→06:14)
--- NOTE | 2018-11-28 06:18 | HISTORY & PHYSICAL EXAMINATION ---
Chief Complaint - Chief Complaint Chief Complaint: intractable nausea and vomiting. "not feeling good" History of Present Illness - Admitted From Admitted From:: [facility] ED - History Obtained From Records Reviewed: yes History obtained from: patient and ED physician - History of Present Illness HPI Comment/Other: Patient is a 18 y/o male with Hx DM I and is very well known to this institution who presented to the ED with complain of generally not feeling well, intractable nausea and vomiting. Symptoms have been going on for the past 2-3 days. He has an abscess just lateral to his right eye which he reports started about 4 days ago. He was in the ED on 11/24/18 for it. It was I&D'ed, blood cultures were sent and he was place on augmentin/bactrim and discharged home after receiving a dose of vancomycin. One of the blood culture grew MRSA. As a result the patient was called back for IV treatment. He declined returning to the ED. In the mean time he has been very nauseous and vomiting. Consequently he is not tolerating his medications. He presents today complaining of generalized pain. He reports chest and abdominal pain from excessive vomiting. He reports chills but no fever. Labs done in the ED showed a glucose level of 400's and an anion gap of 25. As a result of his persistent nausea and vomiting, he is being admitted. History - Past Medical History Cardiovascular: reports: None Respiratory: reports: None Neuro: reports: Peripheral neuropathy Endocrine/Autoimmune: reports: Type 1 diabetes GI: reports: Other : reports: None HEENT: reports: None Psych: reports: Depression, Anxiety Musculoskeletal: reports: None Derm: reports: None MRSA Hx?: Yes - Family & Social History Family History: Mother: Alive and Well, Diabetes, Type 2 (grandmother), Other family: Diabetes, Type 2 Family History Comment/Other: Neg for gallbladder disease and GI tumors Social History Notes: The patient is originally from [place] but has been living on [facility] for the last 3 years with his aunt. The patient also spent some time in [place]. Patient has had multiple hospitalizations for diabetic ketoacidosis within the last 2-3 years. Patient was diagnosed with diabetes at the age of 3. The patient is single and does not have any children. He does not smoke tobacco and rarely drinks alcohol. The patient does state he occasionally smokes marijuana but denies any other illicit drug use. - Substance History Use: Uses substance without health or social issues: Alcohol, Cannabis (pt may have hyperemesis related to cannabis, continues to smoke marijuana) - POLST Patient has POLST: No POLST Status: Full Code Meds/Allgy - Home Medications Home Medications: Ambulatory Orders Medication Instructions Recorded Confirmed Insulin Aspart [NovoLOG] 5 unit SUBQ TIDWM #3 pen 08/20/18 08/24/18 Insulin Glargine [Lantus Solostar] 40 unit SUBQ DAILY PM #4 pen 08/20/18 08/24/18 Amox/Clav 875/125 [Augmentin] 1 each PO Q12H #14 tablet 11/24/18 Sulfamethoxazole/Trimethoprim 1 each PO BID #14 tablet 11/24/18 [Sulfamethoxazole-Tmp Ds Tablet] - Allergies Allergies/Adverse Reactions: Allergies Allergy/AdvReac Type Severity Reaction Status Date / Time No Known Drug Allergies Allergy Verified 11/24/18 10:09 Review of Systems - Constitutional Constitutional: reports: Chills, Malaise, Weakness, Poor appetite. denies: Fever - Eyes Eyes: reports: Pain (lateral to the right eye). denies: Blurred vision, Vision loss, Dipolpia - Ears, Nose & Throat Ears, Nose & Throat: denies: Vertigo, Nasal pain, Nasal discharge, Sore throat - Cardiovascular Cariovascular: reports: Chest pain. denies: Edema, Lightheadedness, Syncope - Respiratory Respiratory: denies: Cough, Wheezing, Snoring, SOB at rest, SOB with exertion - Gastrointestinal Gastrointestinal: reports: Abdominal pain, Nausea, Vomiting, Coffee grounds emes is. denies: Abdominal distention, Diarrhea - Genitourinary Genitourinary: denies: Dysuria, Frequency, Urgency, Hematuria - Musculoskeletal Musculoskeletal: denies: Muscle pain, Back pain, Muscle aches - Integumentary Integumentary: reports: Other (swelling on right side of face). denies: Rash, Lesions - Neurological Neurological: reports: Headache (facial pain) - Psychiatric Psychiatric: denies: Depression, Anxiety - Endocrine Endocrine: reports: Polyuria. denies: Polydypsia - Hematologic/Lymphatic Hematologic/Lymphatic: denies: Bruising, Petechiae Prior Level of Functionality: Independent of activities of daily living Exam - Vital Signs Vital Signs: Vital Signs x48h Temp Pulse Resp BP Pulse Ox 11/28/18 05:00 130 H 18 142/96 H 98 11/28/18 03:28 130 H 11/28/18 03:00 120 H 16 140/100 H 100 11/28/18 01:00 37.2 C 123 H 16 149/94 H 100 11/27/18 23:29 130 H 17 143/98 H 99 - Physical Exam General Appearance: positive: Alert, Moderate distress Eyes Bilateral: positive: PERRL, EOMI, Other (swelling/abscess on lateral aspect of right eye). negative: No scleral icterus ENT: positive: Dry mucous membranes. negative: Pharynx nml Neck: positive: Nml inspection, No JVD, Trachea midline Respiratory: positive: No respiratory distress, Breath sounds nml. negative: Wheezes, Rales, Rhonchi Cardiovascular: positive: No murmur, Tachycardia Abdomen: positive: Non-tender, No organomegaly, No distention. negative: Guarding, Rebound Back: positive: Nml inspection Skin: positive: Color nml, No rash, Warm, Dry Extremities: positive: Non-tender, Nml appearance, No pedal edema Neurologic/Psychiatric: positive: Oriented x3 Sepsis Event Note (H) - Evaluation Current Stage of Sepsis: Sepsis Possible source of Sepsis: positive: Skin/soft tissue Confirmed Source and Organism (if known) of Sepsis: MRSA - Sepsis Criteria Sepsis Criteria: Recorded Heart Rate greater than 90 bpm Conclusion/Plan - Problem List (1) Sepsis Conclusion/Plan: 2/2 Facial abscess on right-side s/p I&D in the ED. Cultures sent out. Previous cultures grew MRSA Patient started on Vancomycin. Will continue. If no improvement, will consider adding Zosyn Pain management with Ofirmev and morphine Qualifiers: Sepsis type: methicillin resistant Staphylococcus aureus Qualified Code(s): A41.02 - Sepsis due to Methicillin resistant Staphylococcus aureus (2) Facial abscess Conclusion/Plan: s/p I&D in the ED. Cultures sent out. Previous cultures grew MRSA Patient started on Vancomycin. Will continue. If no improvement, will consider adding Zosyn Pain management with Ofirmev and morphine (3) DKA (diabetic ketoacidoses) Conclusion/Plan: Mild. Improving IV hydration. Patient given 2 boluses of IV insulin 8 and 5 Blood glucose 302. Initially 439. Anion Gap 20. Initially 25 Qualifiers: Diabetes mellitus type: type 1 Qualified Code(s): E10.10 - Type 1 diabetes mellitus with ketoacidosis without coma (4) Abdominal pain Conclusion/Plan: Likely 2/2 nausea vomiting. Check lactic acid Check abdominal plate. Morphine and ofirmev for pain Qualifiers: Abdominal location: generalized Qualified Code(s): R10.84 - Generalized abdominal pain (5) Peripheral neuropathy Conclusion/Plan: Gabapentin 300mg tid (6) Nausea & vomiting Conclusion/Plan: Zofran and phenergan ordered Qualifiers: Vomiting type: unspecified Vomiting Intractability: intractable Qualified Code(s): R11.2 - Nausea with vomiting, unspecified - Lab Results Fish Bones: 11/28/18 05:07 11/28/18 05:07 Core Measures - Anticipated LOS I expect patient to be DC'd or transferred within 96 hours.: Yes - DVT/VTE - Prophylaxis VTE/DVT Device ordered at admit?: Yes Not Ordered - Medical Reason: Not tolerated VTE/DVT Prophylaxis med ordered at admit?: Yes
[2018-11-28] MEDS ORDERED: BACITRACIN OINT TOP ONE (06:23)
[2018-11-28] MEDS ORDERED: ACETAMINOPHEN 1,000 MG/100 ML 100 ML IV PRN (06:44)
[2018-11-28] MEDS ORDERED: MORPHINE 10 MG/ML VIAL IVP PRN (06:44)
[2018-11-28] MEDS: SODIUM CHLORIDE 0.9% 1,000 ML IV SCH ×2 (06:54→14:55)
[2018-11-28] MEDS: SODIUM CHLORIDE FLUSH 0.9% 10 ML SYRINGE IVP PRN (06:54)
[2018-11-28] MEDS: INSULIN REGULAR HUMAN 100 UNIT/1 ML 10 ML MDV SUBQ SCH ×2 (06:55→12:24)
[2018-11-28] MEDS: MORPHINE 2 MG/ML CARPUJECT IVP PRN ×5 (07:04→21:18)
--- NOTE | 2018-11-28 07:40 | XRAY Report ---
Reason: abdominal pain Procedure Date: 11/28/2018 Accession Number: [id number] / [id number] Procedure: XR - Abdomen 1 View X-Ray CPT Code: 86820 FULL RESULT: EXAM: ABDOMEN RADIOGRAPHY EXAM DATE: 11/28/2018 07:15 AM. CLINICAL HISTORY: Abdominal pain. COMPARISON: ABDOMEN 1 VIEW 08/26/2018 8:14 AM. TECHNIQUE: 1 view. FINDINGS: Bowel Gas Pattern: Within normal limits. No dilated loops. Other: The lung bases are clear and the remaining visualized bones and soft tissues are within normal limits. No abdominal calcifications. IMPRESSION: Normal abdomen radiography. RADIA
[2018-11-28] MEDS: SODIUM CHLORIDE FLUSH 0.9% 10 ML SYRINGE IVP SCH ×3 (07:42→16:09)
[2018-11-28] MEDS ORDERED: POLYETHYLENE GLYCOL 3350 17 GM PACKET PO SCH (09:00)
[2018-11-28 09:26] LABS: BILIRUBIN,URINE NEGATIVE (NEGATIVE); GLUCOSE, URINE (UA) >=1000 mg/dL (NEGATIVE); KETONES,URINE (UA) >=80 mg/dL (NEGATIVE); LEUKOCYTE ESTERASE, URINE NEGATIVE (NEGATIVE); NITRITE,URINE NEGATIVE (NEGATIVE); OCCULT BLOOD,URINE NEGATIVE (NEGATIVE); PROTEIN,URINE NEGATIVE (NEGATIVE); UROBILINOGEN,URINE 0.2 (NORMAL) E.U./dL (NORMAL)
[2018-11-28] MEDS: GABAPENTIN 300 MG CAPSULE PO SCH ×3 (09:31→21:18)
[2018-11-28] MEDS: VANCOMYCIN INJ 1 GM in SODIUM CHLORIDE 0.9% 250 ML IV SCH ×2 (09:31→16:09)
[2018-11-28 09:35] LABS: BACTERIA,URINE Rare /HPF (None Seen); CLARITY,URINE CLEAR (CLEAR); RBC,URINE 0-5 /HPF (0-5); SQUAMOUS EPITHELIAL CELL,UR NONE SEEN (<= Few)
[2018-11-28] MEDS: METOCLOPRAMIDE 10 MG/2 ML VIAL IVP PRN ×2 (10:13→21:18)
[2018-11-28] MEDS: INSULIN ASPART 300 UNIT/3 ML PEN SUBQ SCH ×2 (17:15→21:21)
[2018-11-28] MEDS: ONDANSETRON 4 MG/2 ML VIAL IVP PRN (17:33)
[2018-11-29] MEDS: VANCOMYCIN INJ 1 GM in SODIUM CHLORIDE 0.9% 250 ML IV SCH ×3 (00:02→17:04)
[2018-11-29] MEDS: SODIUM CHLORIDE 0.9% 1,000 ML IV SCH ×5 (00:03→23:33)
[2018-11-29] MEDS: SODIUM CHLORIDE FLUSH 0.9% 10 ML SYRINGE IVP SCH ×3 (00:18→17:15)
[2018-11-29] MEDS: ONDANSETRON 4 MG/2 ML VIAL IVP PRN ×3 (00:19→17:12)
[2018-11-29] MEDS: MORPHINE 2 MG/ML CARPUJECT IVP PRN ×7 (00:19→21:35)
[2018-11-29] MEDS: GABAPENTIN 300 MG CAPSULE PO SCH ×4 (05:28→22:11)
[2018-11-29 06:16] LABS: BASOPHILS % (AUTO) 0.8 %; CALCIUM 8.5 mg/dL (8.5-10.3); EOSINOPHILS % (AUTO) 0.9 %; HGB - HEMOGLOBIN 11.1 g/dL (14.0-18.0); LYMPHOCYTES # (AUTO) 1.5 10^3/uL (1.5-3.5); LYMPHOCYTES % (AUTO) 27.4 %; MEAN CORPUSCULAR HGB CONC 32.9 g/dL (32.0-36.0); MEAN CORPUSCULAR VOLUME 84.9 fL (80.0-94.0); MEAN PLATELET VOLUME 7.5 fL (7.4-11.4); MONOCYTES # (AUTO) 0.3 10^3/uL (0.0-1.0); MONOCYTES % (AUTO) 6.1 %; NEUTROPHILS # (AUTO) 3.5 10^3/uL (1.5-6.6); NEUTROPHILS % (AUTO) 64.8 %; PLT - PLATELET COUNT 214 10^3/uL (130-450); RED BLOOD COUNT 3.98 10^6/uL (4.70-6.10); RED CELL DISTRIBUTION WIDTH 15.3 % (12.0-15.0); WHITE BLOOD COUNT 5.4 x10^3/uL (4.8-10.8)
[2018-11-29 06:25] LABS: CREATININE 0.4 mg/dL (0.6-1.2)
[2018-11-29 06:30] LABS: HB2 TOTAL 11.4 g/dL; HEMOGLOBIN A1C 1.41 g/dL; HEMOGLOBIN A1C % 13.5 % (4.6-6.2)
[2018-11-29] MEDS ORDERED: METOCLOPRAMIDE 10 MG TABLET PO PRN (07:28)
[2018-11-29] MEDS: INSULIN ASPART 300 UNIT/3 ML PEN SUBQ SCH ×4 (07:59→21:23)
[2018-11-29] MEDS: DICYCLOMINE 10 MG CAPSULE PO SCH ×3 (08:30→22:11)
[2018-11-29] MEDS: FLUoxetine 10 MG CAPSULE PO SCH (08:30)
[2018-11-29] MEDS: QUEtiapine 25 MG TABLET PO SCH ×3 (08:30→22:11)
[2018-11-29] MEDS ORDERED: GI COCKTAIL 120 ML BOTTLE PO PRN (08:54)
[2018-11-29] MEDS: PANTOPRAZOLE 40 MG VIAL IVP SCH (10:18)
--- NOTE | 2018-11-29 12:39 | PROVIDER PROGRESS NOTE ---
Subjective - Prog Note Date Prog Note Date: 11/29/18 Prog Note Time: 12:37 - Subjective Pt reports feeling: Improved Subjective: Patient states nausea had previous gastritis hx with coffee-ground emesis. Has been c/o abdominal pain epigastric, no reports of black tarry stools, fevers, joint pain or bright red blood per rectum. Current Medications - Current Medications Current Medications: Active Medications Dicyclomine HCl (Bentyl) 10 mg PO BID [facility] Last Admin: 11/29/18 08:30 Dose: 10 mg Fluoxetine HCl (Prozac) 40 mg PO DAILY [facility] Last Admin: 11/29/18 08:30 Dose: 40 mg Gabapentin (Neurontin) 300 mg PO TID [facility] Last Admin: 11/29/18 05:28 Dose: 300 mg Sodium Chloride (Normal Saline 0.9%) 1,000 mls @ 150 mls/hr IV .Q6H40M [facility] Last Admin: 11/29/18 07:36 Dose: 150 mls/hr Vancomycin HCl 1 gm/ Sodium (Chloride) 250 mls @ 167 mls/hr IV Q8H [facility] Last Infusion: 11/29/18 09:33 Dose: Infused Acetaminophen (Ofirmev) 100 mls @ 400 mls/hr IV Q6HR PRN PRN Reason: PAIN Last Infusion: 11/28/18 16:24 Dose: Infused Insulin Aspart (Novolog) 1 - 9 unit SUBQ 0800,1200,1700,2100 SHEILA; Protocol Last Admin: 11/29/18 11:42 Dose: 7 unit Insulin Glargine (Lantus Solostar) 40 unit SUBQ QPM [facility] Metoclopramide HCl (Reglan) 10 mg PO Q6H PRN PRN Reason: NEEDED PER PROVIDER ORDERS Morphine Sulfate (Morphine (Carpuject)) 2 mg IVP Q3H PRN PRN Reason: Severe Pain Last Admin: 11/29/18 12:36 Dose: 2 mg Multi-Ingredient Mouthwash/Gargle () 30 ml PO Q4HR PRN PRN Reason: Abdominal Pain Ondansetron HCl (Zofran Inj) 4 mg IVP Q6HR PRN PRN Reason: Nausea / Vomiting Last Admin: 11/29/18 05:34 Dose: 4 mg Pantoprazole Sodium (Protonix) 40 mg IVP QDAC [facility] Last Admin: 11/29/18 10:18 Dose: 40 mg Promethazine HCl (Phenergan Inj) 25 mg IM Q6HR PRN PRN Reason: Nausea / Vomiting Quetiapine Fumarate (Seroquel) 50 mg PO BID [facility] Last Admin: 11/29/18 08:30 Dose: 50 mg Sodium Chloride (Normal Saline Flush 0.9%) 10 ml IVP PRN PRN PRN Reason: NEEDED PER PROVIDER ORDERS Last Admin: 11/28/18 06:54 Dose: 10 ml Sodium Chloride (Normal Saline Flush 0.9%) 10 ml IVP 0100,0900,1700 [facility] Last Admin: 11/29/18 08:31 Dose: Not Given Dicyclomine [Bentyl] 10 mg PO BID 11/28/18 Fluoxetine HCl 40 mg PO DAILY 11/28/18 Gabapentin 300 mg PO TID 11/28/18 Metoclopramide [Reglan] 10 mg PO Q6H PRN 11/28/18 Quetiapine Fumarate [Quetiapine Fumarate ER] 50 mg PO BID 11/28/18 Objective - Vital Signs/Intake & Output Reviewed Vital Signs: Yes Vital Signs: Vital Signs x48h Temp Pulse Resp BP Pulse Ox 11/29/18 11:53 36.3 C L 102 H 16 118/73 99 11/29/18 07:29 36.3 C L 89 16 114/76 99 11/29/18 05:17 36.2 C L 89 16 115/85 H 100 Intake & Output: Intake & Output 11/26/18 11/27/18 11/28/18 11/29/18 23:59 23:59 23:59 23:59 Intake Total 2100 3890.0 2614.0 Output Total 2100 Balance 2100 1790.0 2614.0 - Objective General Appearance: positive: No acute distress, Alert, Other (weakness) Eyes Bilateral: positive: Normal inspection, Conjunctivae nml. negative: No scleral icterus ENT: positive: Pharynx nml, Dry mucous membranes Neck: positive: Nml inspection, Thyroid nml, No JVD, Trachea midline Respiratory: positive: Chest non-tender, No respiratory distress, Breath sounds nml. negative: Wheezes, Rales, Rhonchi Cardiovascular: positive: Regular rate & rhythm, No murmur, No gallop. neg ative: Irregularly irregular Peripheral Pulses: 2+ Dorsalis pedis (R), 2+ Dorsalis pedis (L) Abdomen: positive: No organomegaly, Nml bowel sounds, No distention, Tenderness (epigastric). negative: Guarding, Rebound, Hepatomegaly, Splenomegaly, Abnml bowel sounds, Bruit Back: positive: Nml inspection Skin: positive: Color nml, No rash, Warm Extremities: positive: Non-tender, Full ROM, Nml appearance Neurologic/Psychiatric: positive: Oriented x3, CN's nml (2-12) - Lab Results Fish Bones: 11/29/18 05:53 11/29/18 05:53 Other Labs: Lab Results x24hrs 11/29/18 11/29/18 11/29/18 Range/Units 05:53 05:53 05:53 WBC 5.4 (4.8-10.8) x10^3/uL RBC 3.98 L (4.70-6.10) 10^6/uL Hgb 11.1 L (14.0-18.0) g/dL Hct 33.8 L (42.0-52.0) % MCV 84.9 (80.0-94.0) fL MCH 28.0 (27.0-31.0) pg MCHC 32.9 (32.0-36.0) g/dL RDW 15.3 H (12.0-15.0) % Plt Count 214 (130-450) 10^3/uL MPV 7.5 (7.4-11.4) fL Neut # (Auto) 3.5 (1.5-6.6) 10^3/uL Lymph # (Auto) 1.5 (1.5-3.5) 10^3/uL [place] # (Auto) 0.3 (0.0-1.0) 10^3/uL Eos # (Auto) 0.0 (0.0-0.7) 10^3/uL Baso # (Auto) 0.0 (0.0-0.1) 10^3/uL Absolute Nucleated RBC 0.00 x10^3/uL Nucleated RBC % 0.0 /100WBC Sodium 138 (135-145) mmol/L Potassium 3.5 (3.5-5.0) mmol/L Chloride 109 (101-111) mmol/L Carbon Dioxide 18 L (21-32) mmol/L Anion Gap 11.0 (6-13) BUN 10 (6-20) mg/dL Creatinine 0.4 L (0.6-1.2) mg/dL Estimated GFR (MDRD) 274 (>89) Glucose 197 H (70-100) mg/dL Glycated Hemoglobin 13.5 H (4.6-6.2) % Estim Average Glucose 341 H (70-100) Calcium 8.5 (8.5-10.3) mg/dL ABX Reporting Has patient been on IV antibiotics over the past 48 hours?: Yes Sepsis Event Note (H) - Evaluation Current Stage of Sepsis: Resolved Possible source of Sepsis: positive: Skin/soft tissue, Other (1/2 blood culturesMRSA positive On 11/24/18) Assessment/Plan - Problem List (1) MRSA bacteremia Impression: 1/2 blood cultures growing MRSA bacteremia with sensitivities to Bactrim, clindamycin, Zyvox, tetracycline, Cubicin, Tigecycline, Rifampin vancomycin and gentamicin. Patient will need an echocardiogram to rule out any existing vegetation in the setting of poorly controlled IDDM with poor medical compliance and Failure for outpatient antibiotics to be completed as an outpatient. Currently not having any spiking temperatures other than abdominal pain however this could be nonspecific for possible underlying endocarditis. (2) Facial abscess Impression: Facial abscess on right-side s/p I&D in the ED x 2. Cultures sent out. Previous cultures grew MRSA, latest culture growing Staph aureus with sensitivities pending. Will continue with IV Vancomycin. Pain management with Ofirmev and morphine. Wound care consult with recommendations to follow. Contact precautions. Issues identifies with prior noncompliance as well as poorly controlled IDDM which makes patient very high risk for sepsis and reoccurrence, and will need approximately minimum of 2 weeks of Abx therapy, however patient may not want to complete IV abx course. Would need to see if patient would be willing to do home infusion tx with IV vanco or zyvox if approved. 1/2 blood cultures positive for MRSA with sensitivities to clindamycin, Tetracycline, Bactrim, Zyvox. This likely is community-acquired MRSA. If the wound cultures are financial representative of the blood cultures we may switch to oral antibiotics however noncompliance is an issue. Recommendations are to treat for at least 2 weeks with IV antibiotics In the setting of patient's MRSA bacteremia. (3) DKA (diabetic ketoacidoses) Impression: Continue with IV fluid resuscitation aggressive glycemic control correction of underlying electrolyte disturbances. Anion gap seems to be improved and is now closed with a CO2 of 18. Continue with correctionWith bolus and basal coverage. Hemoglobin A1c 13.5, diabetic education and counseling to be followed up with this patient as patient has history of medical noncompliance and nonadherence to glycemic control Qualifiers: Diabetes mellitus type: type 1 Qualified Code(s): E10.10 - Type 1 diabetes mellitus with ketoacidosis without coma (4) Gastritis Impression: Appears to be chronic, place on IV ppi, obtain H. pylori studies, occult blood, labs to follow, GI cocktail prn. Has had an EGD in past and did not know the results. Consider carafate. Qualifiers: Gastritis type: unspecified gastritis Chronicity: unspecified Gastritis bleeding: without bleeding Qualified Code(s): K29.70 - Gastritis, unspecified, without bleeding (5) Anemia Impression: Unclear of etiology as patient has had aggressive IVF's for his DKA, may be component of hemodilution as well as possible Iron deficiency anemia> would check iron studies, occult blood, and possible EGD if symptomatic. Daily CBC with H&H trending, Address underlying Gastritis versus peptic ulcer disease. Patient already on IV PPI and carafate. Qualifiers: Anemia type: unspecified type Qualified Code(s): D64.9 - Anemia, unspecifie d (6) Peripheral neuropathy Impression: Diabetic peripheral neuropathy. Resume Neurontin home dose. Titrate to therapeutic effect. Qualifiers: Peripheral neuropathy type: polyneuropathy associated with underlying disease Qualified Code(s): G63 - Polyneuropathy in diseases classified elsewhere (7) Abdominal pain Impression: Appears to be chronic as it relates to patient's hx of DM gastroparesiss with superimposed gastritis. Manage medically for now. Qualifiers: Abdominal location: epigastric Qualified Code(s): R10.13 - Epigastric pain (8) Noncompliance with diabetes treatment Impression: Patient education and counseling with DM educator as HgbA1c is 13.5%. Multiple issues identified on his noncompliance and will be challenging on having a completed IV abx regimen to complete. (9) Failure to thrive syndrome, adult Impression: Currently Unable to tolerate oral diet Due to diabetic gastroparesis. Optimize medical management and subsequently will improve nutritional status. (10) Malnutrition related diabetes mellitus without complication Impression: Present on admission with a BMI of 19, Protein calorie deficiency malnutrition moderate. Patient is thin appearing and somewhat cachectic due to poor nutritional compliance with type 1 diabetes mellitus. Nutritional consult will be ordered. May need protein supplementation with Glucerna. (11) Diabetic gastroparesis associated with type 1 diabetes mellitus Impression: Likely exacerbated from abdominal pain which is being treated with morphine as needed around the clock at this point will address underlying gastritis and possible underlying peptic ulcer disease? Carafate will be started if patient is tolerating it. Currently with nausea and bilious emesis with no evidence of coffee-ground emesis, Reglan and with Zofran has not provided relief. Will start on Compazine prn, Medical management and stabilize electrolyte disturbances however patient With mild DKA had previously closed his gap with a CO2 of 18. At risk for dehydration with hyperglycemic excursions in the setting of patient not eating at this time. Due to his type 1 diabetes may be a brittle diabetic. (12) Neurogenic bladder Impression: He has urinary retention presumably from diabetic neuropathy affecting his bladder. He can void >800 cc at a time. Will monitor I's and O's. May need Flomax/Bethanechol or straight cath as needed.
[2018-11-29 15:52] LABS: VANCOMYCIN,TROUGH 12.5 ug/mL (10.0-20.0)
[2018-11-29] MEDS: SACCHAROMYCES BOULARDII 250 MG CAPSULE PO SCH (17:09)
[2018-11-29] MEDS ORDERED: PROCHLORPERAZINE 10 MG/2 ML VIAL IVP PRN (17:52)
[2018-11-29] MEDS ORDERED: INSULIN ASPART 300 UNIT/3 ML PEN SUBQ ONE (17:53)
[2018-11-29] MEDS ORDERED: BETHANECHOL 10 MG TABLET PO PRN (18:39)
[2018-11-29] MEDS ORDERED: INSULIN GLARGINE 300 UNIT/3 ML PEN SUBQ SCH ×3 (21:00)
[2018-11-29] MEDS: SUCRALFATE 1 GM/10 ML UDC PO SCH ×2 (21:23→22:11)
[2018-11-29] MEDS ORDERED: ACETAMINOPHEN 1,000 MG/100 ML 100 ML IV PRN (22:03)
[2018-11-29 22:33] LABS: CALCIUM 9.1 mg/dL (8.5-10.3); CREATININE 0.6 mg/dL (0.6-1.2)
[2018-11-29 22:54] LABS: H. PYLORIS ANTIGEN STL NEGATIVE (Negative)
[2018-11-29] MEDS: INSULIN REGULAR HUMAN 100 UNIT in SODIUM CHLORIDE 0.9% 100ML 99 ML IV SCH (23:32)
[2018-11-29] MEDS: HYDROmorphone 0.5 MG/0.5 ML SYRINGE IVP PRN (23:35)
[2018-11-29 23:58] LABS: VBG BASE EXCESS -13.5 mmol/L (-2 - +2); VBG PCO2 29.3 mmHg (41-51); VBG PH 7.243 (7.31-7.41); VBG PO2 51.1 mmHg (25-47); VBG TOTAL CO2 13.3 mmol/L (24-29)
[2018-11-30] MEDS: VANCOMYCIN INJ 1 GM in SODIUM CHLORIDE 0.9% 250 ML IV SCH ×4 (00:06→23:27)
[2018-11-30] MEDS: METOCLOPRAMIDE 10 MG/2 ML VIAL IVP SCH ×2 (00:06→06:16)
[2018-11-30 00:09] LABS: CREATININE 0.6 mg/dL (0.6-1.2)
[2018-11-30] MEDS: SODIUM CHLORIDE 0.9% 1,000 ML IV SCH (00:09)
[2018-11-30] MEDS: POTASSIUM CHLOR 10 MEQ/100 ML 10 MEQ/100 ML BAG IV SCH ×4 (00:17→08:22)
[2018-11-30] MEDS: SODIUM CHLORIDE FLUSH 0.9% 10 ML SYRINGE IVP SCH ×3 (00:17→16:59)
[2018-11-30] MEDS: D5NS W/20 MEQ KCL 1,000 ML IV SCH ×4 (01:32→18:35)
[2018-11-30 02:33] LABS: CREATININE 0.6 mg/dL (0.6-1.2); MAGNESIUM 1.9 mg/dL (1.7-2.8)
[2018-11-30] MEDS: HYDROmorphone 0.5 MG/0.5 ML SYRINGE IVP PRN ×6 (03:04→22:26)
[2018-11-30] MEDS: SUCRALFATE 1 GM/10 ML UDC PO SCH ×4 (06:16→21:30)
[2018-11-30] MEDS: PANTOPRAZOLE 40 MG VIAL IVP SCH (06:16)
[2018-11-30] MEDS: GABAPENTIN 300 MG CAPSULE PO SCH ×3 (06:16→21:26)
[2018-11-30] MEDS: SODIUM CHLORIDE FLUSH 0.9% 10 ML SYRINGE IVP PRN ×3 (06:16→22:26)
[2018-11-30 06:26] LABS: BASOPHILS % (AUTO) 0.3 %; HGB - HEMOGLOBIN 11.1 g/dL (14.0-18.0); LYMPHOCYTES # (AUTO) 1.1 10^3/uL (1.5-3.5); LYMPHOCYTES % (AUTO) 18.3 %; MEAN CORPUSCULAR HEMOGLOBIN 27.7 pg (27.0-31.0); MEAN CORPUSCULAR HGB CONC 32.9 g/dL (32.0-36.0); MEAN CORPUSCULAR VOLUME 84.3 fL (80.0-94.0); MEAN PLATELET VOLUME 7.5 fL (7.4-11.4); MONOCYTES # (AUTO) 0.4 10^3/uL (0.0-1.0); NEUTROPHILS # (AUTO) 4.6 10^3/uL (1.5-6.6); NEUTROPHILS % (AUTO) 75.4 %; PLT - PLATELET COUNT 264 10^3/uL (130-450); RED BLOOD COUNT 4.02 10^6/uL (4.70-6.10); RED CELL DISTRIBUTION WIDTH 15.6 % (12.0-15.0); WHITE BLOOD COUNT 6.1 x10^3/uL (4.8-10.8)
[2018-11-30 06:35] LABS: MAGNESIUM 1.9 mg/dL (1.7-2.8); PHOSPHORUS 2.3 mg/dL (2.5-4.6)
[2018-11-30 06:42] LABS: CALCIUM 8.5 mg/dL (8.5-10.3); CREATININE 0.5 mg/dL (0.6-1.2)
[2018-11-30] MEDS: NEUTRA-PHOS 250 MG TABLET PO SCH ×3 (07:23→23:26)
[2018-11-30] MEDS: ONDANSETRON 4 MG/2 ML VIAL IVP PRN (07:39)
[2018-11-30] MEDS: SACCHAROMYCES BOULARDII 250 MG CAPSULE PO SCH ×2 (08:11→18:08)
[2018-11-30] MEDS: QUEtiapine 25 MG TABLET PO SCH ×2 (09:45→21:26)
[2018-11-30] MEDS: FLUoxetine 10 MG CAPSULE PO SCH (09:55)
[2018-11-30] MEDS: DICYCLOMINE 10 MG CAPSULE PO SCH ×2 (10:00→21:26)
[2018-11-30] MEDS ORDERED: IRON SUCROSE 200 MG in SODIUM CHLORIDE 0.9% 100ML 100 ML IV ONE (10:15)
[2018-11-30] MEDS: METOCLOPRAMIDE 10 MG TABLET PO SCH ×3 (11:53→23:26)
--- NOTE | 2018-11-30 13:13 | PROVIDER PROGRESS NOTE ---
Subjective - Prog Note Date Prog Note Date: 11/30/18 Prog Note Time: 13:11 - Subjective Pt reports feeling: Improved (Patient has improved left facial swelling. Nausea and vomiting with gastroparesis and diabetes currently not eating.) Current Medications - Current Medications Current Medications: Active Medications Bethanechol Chloride (Urecholine) 10 mg PO QID PRN PRN Reason: urinary retention Dicyclomine HCl (Bentyl) 10 mg PO BID [facility] Last Admin: 11/30/18 10:00 Dose: 10 mg Dronabinol (Marinol) 2.5 mg PO BIDAC SHEILA Fluoxetine HCl (Prozac) 40 mg PO DAILY [facility] Last Admin: 11/30/18 09:55 Dose: 40 mg Gabapentin (Neurontin) 300 mg PO TID [facility] Last Admin: 11/30/18 06:16 Dose: 300 mg Hydromorphone HCl (Dilaudid Inj Syringe) 0.5 mg IVP Q3H PRN PRN Reason: PAIN Last Admin: 11/30/18 09:24 Dose: 0.5 mg Vancomycin HCl 1 gm/ Sodium (Chloride) 250 mls @ 167 mls/hr IV Q8H [facility] Last Infusion: 11/30/18 10:21 Dose: Infused Acetaminophen (Ofirmev) 100 mls @ 400 mls/hr IV Q6HR PRN PRN Reason: PAIN Last Infusion: 11/28/18 16:24 Dose: Infused Insulin Human Regular 100 unit (/ Sodium Chloride) 100 mls @ 5.33 mls/hr IV .[id number] [facility]; Protocol Last Titration: 11/30/18 09:15 Dose: 0 unit/kg/hr, 0 mls/hr Potassium Chloride/Dextrose/Sod Cl () 1,000 mls @ 150 mls/hr IV .[id number] [facility] Last Infusion: 11/30/18 11:17 Dose: 150 mls/hr Metoclopramide HCl (Reglan) 10 mg PO Q6HR [facility] Last Admin: 11/30/18 11:53 Dose: 10 mg Ondansetron HCl (Zofran Inj) 4 mg IVP Q6HR PRN PRN Reason: Nausea / Vomiting Last Admin: 11/30/18 07:39 Dose: 4 mg Pantoprazole Sodium (Protonix) 40 mg IVP QDAC [facility] Last Admin: 11/30/18 06:16 Dose: 40 mg Promethazine HCl (Phenergan Inj) 25 mg IM Q6HR PRN PRN Reason: Nausea / Vomiting Quetiapine Fumarate (Seroquel) 50 mg PO BID [facility] Last Admin: 11/30/18 09:45 Dose: 50 mg Saccharomyces Boulardii (Florastor) 250 mg PO BIDWM [facility] Last Admin: 11/30/18 08:11 Dose: Not Given Sodium Chloride (Normal Saline Flush 0.9%) 10 ml IVP PRN PRN PRN Reason: NEEDED PER PROVIDER ORDERS Last Admin: 11/30/18 11:12 Dose: 10 ml Sodium Chloride (Normal Saline Flush 0.9%) 10 ml IVP 0100,0900,1700 [facility] Last Admin: 11/30/18 10:22 Dose: 10 ml Sucralfate (Carafate) 1 gm PO 0700,1100,1600,2200 [facility] Last Admin: 11/30/18 11:10 Dose: 1 gm Dicyclomine [Bentyl] 10 mg PO BID 11/28/18 Fluoxetine HCl 40 mg PO DAILY 11/28/18 Gabapentin 300 mg PO TID 11/28/18 Metoclopramide [Reglan] 10 mg PO Q6H PRN 11/28/18 Quetiapine Fumarate [Quetiapine Fumarate ER] 50 mg PO BID 11/28/18 Objective - Vital Signs/Intake & Output Reviewed Vital Signs: Yes Vital Signs: Vital Signs x48h Pulse Resp BP Pulse Ox 11/30/18 12:00 92 14 102/68 99 11/30/18 11:00 95 11 L 115/85 H 99 11/30/18 09:00 106 H 13 112/80 100 11/30/18 08:00 114 H 11 L 104/70 98 11/30/18 07:00 116 H 9 L 142/102 H 100 11/30/18 06:00 101 H 11 L 105/74 100 Intake & Output: Intake & Output 11/27/18 11/28/18 11/29/18 11/30/18 23:59 23:59 23:59 23:59 Intake Total 2100 3890.0 5634.0 2722.121 Output Total 2100 812 1100 Balance 2100 1790.0 4822.0 1622.121 - Objective General Appearance: positive: Alert, Other (Patient has weakness and due to poor nutritional intake.) Eyes Bilateral: positive: Normal inspection, PERRL, EOMI, Conjunctivae nml ENT: positive: Pharynx nml, Dry mucous membranes Neck: positive: Nml inspection, Thyroid nml, No JVD, Trachea midline. negative: Thyromegaly Respiratory: positive: Chest non-tender, No respiratory distress, Breath sounds nml Cardiovascular: positive: Regular rate & rhythm, No murmur, No gallop Peripheral Pulses: 2+ Dorsalis pedis (R), 2+ Dorsalis pedis (L) Abdomen: positive: No organomegaly, Nml bowel sounds, Tenderness (To the epigastrium). negative: No distention, Guarding, Rebound Skin: positive: Color nml, No rash, Warm Extremities: positive: Non-tender, Full ROM, Nml appearance Neurologic/Psychiatric: positive: Oriented x3, CN's nml (2-12) - Lab Results Fish Bones: 11/30/18 05:37 11/30/18 05:37 Other Labs: Lab Results x24hrs 11/30/18 11/30/18 11/30/18 Range/Units 05:37 05:37 05:37 WBC 6.1 (4.8-10.8) x10^3/uL RBC 4.02 L (4.70-6.10) 10^6/uL Hgb 11.1 L (14.0-18.0) g/dL Hct 33.9 L (42.0-52.0) % MCV 84.3 (80.0-94.0) fL MCH 27.7 (27.0-31.0) pg MCHC 32.9 (32.0-36.0) g/dL RDW 15.6 H (12.0-15.0) % Plt Count 264 (130-450) 10^3/uL MPV 7.5 (7.4-11.4) fL Neut # (Auto) 4.6 (1.5-6.6) 10^3/uL Lymph # (Auto) 1.1 L (1.5-3.5) 10^3/uL Sanders # (Auto) 0.4 (0.0-1.0) 10^3/uL Eos # (Auto) 0.0 (0.0-0.7) 10^3/uL Baso # (Auto) 0.0 (0.0-0.1) 10^3/uL Absolute Nucleated RBC 0.00 x10^3/uL Nucleated RBC % 0.0 /100WBC VBG pH (7.31-7.41) VBG pCO2 (41-51) mmHg VBG pO2 (25-47) mmHg VBG HCO3 (23-28) mmol/L VBG Total CO2 (24-29) mmol/L VBG O2 Saturation (60-80) % VBG Base Excess (-2 - +2) mmol/L Sodium 137 (135-145) mmol/L Potassium 3.4 L (3.5-5.0) mmol/L Chloride 110 (101-111) mmol/L Carbon Dioxide 18 L (21-32) mmol/L Anion Gap 9.0 (6-13) BUN 10 (6-20) mg/dL Creatinine 0.5 L (0.6-1.2) mg/dL Estimated GFR (MDRD) 212 (>89) Glucose 163 H (70-100) mg/dL Calcium 8.5 (8.5-10.3) mg/dL Phosphorus 2.3 L (2.5-4.6) mg/dL Magnesium 1.9 (1.7-2.8) mg/dL Iron 29 L (45-182) ug/dL TIBC 258 (250-450) ug/dL % Saturation 11 L (20-50) % Transferrin 184 (180-329) mg/dL Nasal Screen MRSA (PCR) (NEGATIVE) Stl Occult Blood (IFOB) (NEGATIVE) Stool H. pylori Ag (Negative) Last Dose Date Last Dose Time Vancomycin Trough (10.0-20.0) ug/mL Serum Ketones (NEGATIVE) 11/30/18 11/30/18 11/30/18 Range/Units 04:00 04:00 02:50 WBC (4.8-10.8) x10^3/uL RBC (4.70-6.10) 10^6/uL Hgb (14.0-18.0) g/dL Hct (42.0-52.0) % MCV (80.0-94.0) fL MCH (27.0-31.0) pg MCHC (32.0-36.0) g/dL RDW (12.0-15.0) % Plt Count (130-450) 10^3/uL MPV (7.4-11.4) fL Neut # (Auto) (1.5-6.6) 10^3/uL Lymph # (Auto) (1.5-3.5) 10^3/uL Sanders # (Auto) (0.0-1.0) 10^3/uL Eos # (Auto) (0.0-0.7) 10^3/uL Baso # (Auto) (0.0-0.1) 10^3/uL Absolute Nucleated RBC x10^3/uL Nucleated RBC % /100WBC VBG pH (7.31-7.41) VBG pCO2 (41-51) mmHg VBG pO2 (25-47) mmHg VBG HCO3 (23-28) mmol/L VBG Total CO2 (24-29) mmol/L VBG O2 Saturation (60-80) % VBG Base Excess (-2 - +2) mmol/L Sodium (135-145) mmol/L Potassium (3.5-5.0) mmol/L Chloride (101-111) mmol/L Carbon Dioxide (21-32) mmol/L Anion Gap (6-13) BUN (6-20) mg/dL Creatinine (0.6-1.2) mg/dL Estimated GFR (MDRD) (>89) Glucose 188 H (70-100) mg/dL Calcium (8.5-10.3) mg/dL Phosphorus 2.3 L 2.6 (2.5-4.6) mg/dL Magnesium (1.7-2.8) mg/dL Iron (45-182) ug/dL TIBC (250-450) ug/dL % Saturation (20-50) % Transferrin (180-329) mg/dL Nasal Screen MRSA (PCR) (NEGATIVE) Stl Occult Blood (IFOB) (NEGATIVE) Stool H. pylori Ag (Negative) Last Dose Date Last Dose Time Vancomycin Trough (10.0-20.0) ug/mL Serum Ketones (NEGATIVE) 11/30/18 11/30/18 11/29/18 Range/Units 02:50 01:45 23:40 WBC (4.8-10.8) x10^3/uL RBC (4.70-6.10) 10^6/uL Hgb (14.0-18.0) g/dL Hct (42.0-52.0) % MCV (80.0-94.0) fL MCH (27.0-31.0) pg MCHC (32.0-36.0) g/dL RDW (12.0-15.0) % Plt Count (130-450) 10^3/uL MPV (7.4-11.4) fL Neut # (Auto) (1.5-6.6) 10^3/uL Lymph # (Auto) (1.5-3.5) 10^3/uL Sanders # (Auto) (0.0-1.0) 10^3/uL Eos # (Auto) (0.0-0.7) 10^3/uL Baso # (Auto) (0.0-0.1) 10^3/uL Absolute Nucleated RBC x10^3/uL Nucleated RBC % /100WBC VBG pH (7.31-7.41) VBG pCO2 (41-51) mmHg VBG pO2 (25-47) mmHg VBG HCO3 (23-28) mmol/L VBG Total CO2 (24-29) mmol/L VBG O2 Saturation (60-80) % VBG Base Excess (-2 - +2) mmol/L Sodium 138 (135-145) mmol/L Potassium 3.7 (3.5-5.0) mmol/L Chloride 107 (101-111) mmol/L Carbon Dioxide 14 L (21-32) mmol/L Anion Gap 17.0 H (6-13) BUN 12 (6-20) mg/dL Creatinine 0.6 (0.6-1.2) mg/dL Estimated GFR (MDRD) 172 (>89) Glucose 180 H 170 H (70-100) mg/dL Calcium 9.0 (8.5-10.3) mg/dL Phosphorus (2.5-4.6) mg/dL Magnesium 1.9 (1.7-2.8) mg/dL Iron (45-182) ug/dL TIBC (250-450) ug/dL % Saturation (20-50) % Transferrin (180-329) mg/dL Nasal Screen MRSA (PCR) NEGATIVE (NEGATIVE) Stl Occult Blood (IFOB) (NEGATIVE) Stool H. pylori Ag (Negative) Last Dose Date Last Dose Time Vancomycin Trough (10.0-20.0) ug/mL Serum Ketones (NEGATIVE) 11/29/18 11/29/18 11/29/18 Range/Units 23:30 23:30 21:30 WBC (4.8-10.8) x10^3/uL RBC (4.70-6.10) 10^6/uL Hgb (14.0-18.0) g/dL Hct (42.0-52.0) % MCV (80.0-94.0) fL MCH (27.0-31.0) pg MCHC (32.0-36.0) g/dL RDW (12.0-15.0) % Plt Count (130-450) 10^3/uL MPV (7.4-11.4) fL Neut # (Auto) (1.5-6.6) 10^3/uL Lymph # (Auto) (1.5-3.5) 10^3/uL Sanders # (Auto) (0.0-1.0) 10^3/uL Eos # (Auto) (0.0-0.7) 10^3/uL Baso # (Auto) (0.0-0.1) 10^3/uL Absolute Nucleated RBC x10^3/uL Nucleated RBC % /100WBC VBG pH 7.243 L (7.31-7.41) VBG pCO2 29.3 L (41-51) mmHg VBG pO2 51.1 H (25-47) mmHg VBG HCO3 12.4 L (23-28) mmol/L VBG Total CO2 13.3 L (24-29) mmol/L VBG O2 Saturation 86.1 H (60-80) % VBG Base Excess -13.5 L (-2 - +2) mmol/L Sodium 137 (135-145) mmol/L Potassium 3.5 (3.5-5.0) mmol/L Chloride 105 (101-111) mmol/L Carbon Dioxide 13 L (21-32) mmol/L Anion Gap 19.0 H (6-13) BUN 12 (6-20) mg/dL Creatinine 0.6 (0.6-1.2) mg/dL Estimated GFR (MDRD) 172 (>89) Glucose 217 H (70-100) mg/dL Calcium 9.0 (8.5-10.3) mg/dL Phosphorus (2.5-4.6) mg/dL Magnesium 2.0 (1.7-2.8) mg/dL Iron (45-182) ug/dL TIBC (250-450) ug/dL % Saturation (20-50) % Transferrin (180-329) mg/dL Nasal Screen MRSA (PCR) (NEGATIVE) Stl Occult Blood (IFOB) (NEGATIVE) Stool H. pylori Ag NEGATIVE (Negative) Last Dose Date Last Dose Time Vancomycin Trough (10.0-20.0) ug/mL Serum Ketones (NEGATIVE) 11/29/18 11/29/18 11/29/18 Range/Units 21:30 19:35 19:35 WBC (4.8-10.8) x10^3/uL RBC (4.70-6.10) 10^6/uL Hgb (14.0-18.0) g/dL Hct (42.0-52.0) % MCV (80.0-94.0) fL MCH (27.0-31.0) pg MCHC (32.0-36.0) g/dL RDW (12.0-15.0) % Plt Count (130-450) 10^3/uL MPV (7.4-11.4) fL Neut # (Auto) (1.5-6.6) 10^3/uL Lymph # (Auto) (1.5-3.5) 10^3/uL Sanders # (Auto) (0.0-1.0) 10^3/uL Eos # (Auto) (0.0-0.7) 10^3/uL Baso # (Auto) (0.0-0.1) 10^3/uL Absolute Nucleated RBC x10^3/uL Nucleated RBC % /100WBC VBG pH (7.31-7.41) VBG pCO2 (41-51) mmHg VBG pO2 (25-47) mmHg VBG HCO3 (23-28) mmol/L VBG Total CO2 (24-29) mmol/L VBG O2 Saturation (60-80) % VBG Base Excess (-2 - +2) mmol/L Sodium 136 (135-145) mmol/L Potassium 3.7 (3.5-5.0) mmol/L Chloride 104 (101-111) mmol/L Carbon Dioxide 14 L (21-32) mmol/L Anion Gap 18.0 H (6-13) BUN 11 (6-20) mg/dL Creatinine 0.6 (0.6-1.2) mg/dL Estimated GFR (MDRD) 172 (>89) Glucose 283 H (70-100) mg/dL Calcium 9.1 (8.5-10.3) mg/dL Phosphorus (2.5-4.6) mg/dL Magnesium (1.7-2.8) mg/dL Iron (45-182) ug/dL TIBC (250-450) ug/dL % Saturation (20-50) % Transferrin (180-329) mg/dL Nasal Screen MRSA (PCR) (NEGATIVE) Stl Occult Blood (IFOB) NEGATIVE (NEGATIVE) Stool H. pylori Ag (Negative) Last Dose Date Last Dose Time Vancomycin Trough (10.0-20.0) ug/mL Serum Ketones MODERATE H (NEGATIVE) 11/29/18 Range/Units 15:38 WBC (4.8-10.8) x10^3/uL RBC (4.70-6.10) 10^6/uL Hgb (14.0-18.0) g/dL Hct (42.0-52.0) % MCV (80.0-94.0) fL MCH (27.0-31.0) pg MCHC (32.0-36.0) g/dL RDW (12.0-15.0) % Plt Count (130-450) 10^3/uL MPV (7.4-11.4) fL Neut # (Auto) (1.5-6.6) 10^3/uL Lymph # (Auto) (1.5-3.5) 10^3/uL Sanders # (Auto) (0.0-1.0) 10^3/uL Eos # (Auto) (0.0-0.7) 10^3/uL Baso # (Auto) (0.0-0.1) 10^3/uL Absolute Nucleated RBC x10^3/uL Nucleated RBC % /100WBC VBG pH (7.31-7.41) VBG pCO2 (41-51) mmHg VBG pO2 (25-47) mmHg VBG HCO3 (23-28) mmol/L VBG Total CO2 (24-29) mmol/L VBG O2 Saturation (60-80) % VBG Base Excess (-2 - +2) mmol/L Sodium (135-145) mmol/L Potassium (3.5-5.0) mmol/L Chloride (101-111) mmol/L Carbon Dioxide (21-32) mmol/L Anion Gap (6-13) BUN (6-20) mg/dL Creatinine (0.6-1.2) mg/dL Estimated GFR (MDRD) (>89) Glucose (70-100) mg/dL Calcium (8.5-10.3) mg/dL Phosphorus (2.5-4.6) mg/dL Magnesium (1.7-2.8) mg/dL Iron (45-182) ug/dL TIBC (250-450) ug/dL % Saturation (20-50) % Transferrin (180-329) mg/dL Nasal Screen MRSA (PCR) (NEGATIVE) Stl Occult Blood (IFOB) (NEGATIVE) Stool H. pylori Ag (Negative) Last Dose Date Not Reportable Last Dose Time Not Reportable Vancomycin Trough 12.5 (10.0-20.0) ug/mL Serum Ketones (NEGATIVE) ABX Reporting Has patient been on IV antibiotics over the past 48 hours?: Yes Sepsis Event Note (H) - Evaluation Current Stage of Sepsis: Resolved Possible source of Sepsis: positive: Skin/soft tissue, Other (1/2 blood culturesMRSA positive On 11/24/18) - Sepsis Criteria Sepsis Criteria: Recorded Heart Rate greater than 90 bpm Assessment/Plan - Problem List (1) MRSA bacteremia Impression: Patient's 2D echo shows an ejection fraction 65-70% with no vegetation, no motion wall abnormalities, no structural heart disease noted. Patient will likely require up to 4 weeks of IV antibiotics for clearance of MRSA bacteremia with a repeat blood culture for test of cure. Blood culture shows pretty good sensitivities to indicate that this is commuting acquired MRSA. We will continue with IV vancomycin and due to infusion rate will consider placing patient on IV Vancon with only single dose to be Given in a 24-hour period as patient will have issues with transportation. (2) Facial abscess Impression: Wound care service has taken pictures and addressed patient's second incision drainage and debridement with the expression of purulent material with wound cultures that are consistent with similar sensitivities to that of blood cultures with good sensitivities to clindamycin, Synercid, vancomycin, gentamicin, Bactrim, clindamycin, rifampin. We will continue with current wound care protocol as per wound care service, Wound Care Orders: Remove and replace AMD packing strip every 3 days, Replace outer gauze PRN soiling or strike through. Do NOT overpack, simply fill space and leave tail out to gauze to provide for wicking. Pt may follow up with PCP for continued management as needed. If concerns or additional complications occur, please feel free to send outpatient consult to [facility] [place] [facility] and we would be glad to see him. Patient will require at least 4 weeks of IV antibiotics mainly to clear out MRSA bacter emia as well to address his facial abscess in a high risk noncompliant insulin requiring type 1 diabetes patient. A PICC line will be placed today and with post PICC line care to resume. (3) DKA (diabetic ketoacidoses) Impression: This has improved and with a gap today that essentially has closed 209, CO2 of 18, good renal function will continue with electrolyte and fluid repletion. We will shut off insulin sliding scale and administer Lantus 1 hour prior to discontinuing insulin drip. Currently on D5 one half normal saline with KCl. Qualifiers: Diabetes mellitus type: type 1 Qualified Code(s): E10.10 - Type 1 diabetes mellitus with ketoacidosis without coma (4) Gastritis Impression: This has improved with superimposed Diabetic gastroparesis. We will continue with antiemetics IV Protonix, will advance to clears, stool for H. pylori, Carafate was dispensed and unclear if patient is receiving this however it will help with symptoms, will place on antiemetics including Marinol and home dose of Reglan 10 mg p.o. every 6. Qualifiers: Gastritis type: unspecified gastritis Chronicity: unspecified Gastritis bleeding: without bleeding Qualified Code(s): K29.70 - Gastritis, unspecified, without bleeding (5) Anemia Impression: IV iron sucrose to be infused today. Qualifiers: Anemia type: iron deficiency (6) Abdominal pain Impression: Patient has receiving Dilaudid 0.5 mg IV every 3 hours as needed, Patient has improvement to his abdominal pain as this is related to patient's diabetic gastroparesis with underlying acute gastritis deemed to be noninfectious at this point. Qualifiers: Abdominal location: epigastric Qualified Code(s): R10.13 - Epigastric pain (8) Failure to thrive syndrome, adult Impression: Is on clears and will optimize nutrition. Patient has a BMI of 18.7 kg/m as patient has poor nutritional input due to patient's poor compliance with type 1 diabetes mellitus. (9) Malnutrition related diabetes mellitus without complication Impression: Poor nutritional input and will continue to optimize medical management at this point. Nutritional consult due to patient's BMI of 18.7 kg/m. (10) Diabetic gastroparesis associated with type 1 diabetes mellitus Impression: Patient with poor compliance and uncontrolled type 1 diabetes mellitus, will place back on Reglan 10 mg p.o. every 6 along with other antiemetics and will also placed on Marinol 2.5 mg p.o. twice daily AC. Patient may tolerate erythromycin lactobionate for refractory gastroparesis. Will hold off until Reglan has been exhausted. (11) Neurogenic bladder Impression: Patient is currently on bethanechol as needed.
[2018-11-30] MEDS ORDERED: INSULIN GLARGINE 300 UNIT/3 ML PEN SUBQ ONE (15:15)
[2018-11-30 16:01] LABS: HB2 TOTAL 11.9 g/dL; HEMOGLOBIN A1C 1.45 g/dL; HEMOGLOBIN A1C % 13.3 % (4.6-6.2)
[2018-11-30] MEDS: DRONABINOL 2.5 MG CAPSULE PO SCH ×2 (16:35→18:11)
[2018-11-30] MEDS: INSULIN ASPART 300 UNIT/3 ML PEN SUBQ SCH ×2 (17:01→21:29)
--- NOTE | 2018-11-30 17:19 | XRAY Report ---
Reason: new PICC@R basilic v Procedure Date: 11/30/2018 Accession Number: [id number] / [id number] Procedure: XR - Chest for Line Placement CPT Code: FULL RESULT: EXAM: Chest for Line Placement DATE: 11/30/2018 4:42 PM CLINICAL HISTORY: new PICC@R basilic v COMPARISON: 05/11/2018. TECHNIQUE: Single view of the chest. FINDINGS: Lungs/Pleura: No focal opacities evident. No pneumothorax or pleural effusion. Mediastinum: Within exam limitations, cardiomediastinal contour is normal. Other: Right arm PICC is seen projecting over the central chest just right of the thoracic spine with the catheter tip curved cranially after the catheter courses towards the SVC. A subsequently taken lateral radiograph demonstrates the tip pointing towards the diaphragm with the line projecting in the region of the superior cavoatrial junction, appropriate placement. IMPRESSION: Centrally placed right arm PICC, final positioning on the lateral radiograph. RADIA
[2018-11-30] MEDS: INSULIN REGULAR HUMAN 100 UNIT in SODIUM CHLORIDE 0.9% 100ML 99 ML IV SCH (18:09)
[2018-11-30 22:42] LABS: ALBUMIN 2.7 g/dL (3.2-5.5); ALBUMIN/GLOBULIN RATIO 0.8 (1.0-2.2); ALKALINE PHOSPHATASE 71 IU/L (42-121); ALT ALANINE AMINOTRANSFERASE 11 IU/L (10-60); AST ASPARTATE AMINOTRANSFERASE 13 IU/L (10-42); BILIRUBIN,TOTAL 0.7 mg/dL (0.2-1.0); BUN - BLOOD UREA NITROGEN 5 mg/dL (6-20); CALCIUM 8.5 mg/dL (8.5-10.3); CARBON DIOXIDE - CO2 21 mmol/L (21-32); CHLORIDE 107 mmol/L (101-111); CREATININE 0.4 mg/dL (0.6-1.2); GFR - MDRD 274 (>89); GLUCOSE 338 mg/dL (70-100); SODIUM 136 mmol/L (135-145)
[2018-11-30 22:54] LABS: MAGNESIUM 1.8 mg/dL (1.7-2.8); PHOSPHORUS 2.4 mg/dL (2.5-4.6)
[2018-11-30] MEDS: POTASSIUM CHLOR 20 MEQ/100 ML 20 MEQ/100 ML BAG IV SCH (23:28)
[2018-12-01] MEDS: POTASSIUM CHLOR 20 MEQ/100 ML 20 MEQ/100 ML BAG IV SCH ×3 (00:31→09:22)
[2018-12-01] MEDS: HYDROmorphone 0.5 MG/0.5 ML SYRINGE IVP PRN ×7 (01:26→21:53)
[2018-12-01] MEDS: NEUTRA-PHOS 250 MG TABLET PO SCH (01:27)
[2018-12-01] MEDS: SODIUM CHLORIDE FLUSH 0.9% 10 ML SYRINGE IVP PRN ×3 (04:41→21:53)
[2018-12-01] MEDS: SODIUM CHLORIDE FLUSH 0.9% 10 ML SYRINGE IVP SCH ×5 (04:42→19:25)
[2018-12-01 05:04] LABS: HGB - HEMOGLOBIN 11.3 g/dL (14.0-18.0); LYMPHOCYTES # (AUTO) 1.6 10^3/uL (1.5-3.5); LYMPHOCYTES % (AUTO) 38.8 %; MEAN CORPUSCULAR HEMOGLOBIN 27.9 pg (27.0-31.0); MEAN CORPUSCULAR VOLUME 84.6 fL (80.0-94.0); MEAN PLATELET VOLUME 7.6 fL (7.4-11.4); MONOCYTES # (AUTO) 0.3 10^3/uL (0.0-1.0); MONOCYTES % (AUTO) 7.8 %; NEUTROPHILS # (AUTO) 2.1 10^3/uL (1.5-6.6); NEUTROPHILS % (AUTO) 51.4 %; PLT - PLATELET COUNT 238 10^3/uL (130-450); RED BLOOD COUNT 4.04 10^6/uL (4.70-6.10); RED CELL DISTRIBUTION WIDTH 15.2 % (12.0-15.0); WHITE BLOOD COUNT 4.1 x10^3/uL (4.8-10.8)
[2018-12-01 05:08] LABS: VBG PH 7.366 (7.31-7.41)
[2018-12-01 05:14] LABS: BUN - BLOOD UREA NITROGEN < 5 mg/dL (6-20); CALCIUM 8.6 mg/dL (8.5-10.3); CARBON DIOXIDE - CO2 24 mmol/L (21-32); CHLORIDE 105 mmol/L (101-111); CREATININE 0.4 mg/dL (0.6-1.2); GFR - MDRD 274 (>89); GLUCOSE 266 mg/dL (70-100); PHOSPHORUS 2.9 mg/dL (2.5-4.6); SODIUM 139 mmol/L (135-145)
[2018-12-01] MEDS: PANTOPRAZOLE 40 MG VIAL IVP SCH (06:44)
[2018-12-01] MEDS: GABAPENTIN 300 MG CAPSULE PO SCH ×3 (06:45→21:06)
[2018-12-01] MEDS: METOCLOPRAMIDE 10 MG TABLET PO SCH ×3 (06:45→15:54)
[2018-12-01] MEDS: SUCRALFATE 1 GM/10 ML UDC PO SCH ×4 (06:45→21:06)
[2018-12-01] MEDS: INSULIN ASPART 300 UNIT/3 ML PEN SUBQ SCH ×4 (08:12→21:08)
[2018-12-01] MEDS: SACCHAROMYCES BOULARDII 250 MG CAPSULE PO SCH ×2 (08:24→17:56)
[2018-12-01] MEDS: DICYCLOMINE 10 MG CAPSULE PO SCH ×2 (08:25→21:06)
[2018-12-01] MEDS: QUEtiapine 25 MG TABLET PO SCH ×2 (08:25→21:06)
[2018-12-01] MEDS: FLUoxetine 10 MG CAPSULE PO SCH (08:25)
[2018-12-01] MEDS: VANCOMYCIN INJ 1 GM in SODIUM CHLORIDE 0.9% 250 ML IV SCH ×2 (08:39→15:55)
[2018-12-01] MEDS: DRONABINOL 2.5 MG CAPSULE PO SCH ×2 (09:21→15:53)
--- NOTE | 2018-12-01 17:10 | PROVIDER PROGRESS NOTE ---
Subjective - Prog Note Date Prog Note Date: 12/01/18 Prog Note Time: 17:08 - Subjective Pt reports feeling: Improved Subjective: Patient complains of mild abdominal pain however is eating 100% of his diet now status post PICC line placement for continued long-duration IV antibiotics Current Medications - Current Medications Current Medications: Active Medications Bethanechol Chloride (Urecholine) 10 mg PO QID PRN PRN Reason: urinary retention Dicyclomine HCl (Bentyl) 10 mg PO BID [facility] Last Admin: 12/01/18 08:25 Dose: 10 mg Dronabinol (Marinol) 2.5 mg PO BIDAC [facility] Last Admin: 12/01/18 15:53 Dose: 2.5 mg Ferrous Sulfate (Feosol Liquid) 300 mg PO DAILYWM [facility] Fluoxetine HCl (Prozac) 40 mg PO DAILY [facility] Last Admin: 12/01/18 08:25 Dose: 40 mg Gabapentin (Neurontin) 300 mg PO TID [facility] Last Admin: 12/01/18 14:21 Dose: 300 mg Hydromorphone HCl (Dilaudid Inj Syringe) 0.5 mg IVP Q3H PRN PRN Reason: PAIN Last Admin: 12/01/18 15:58 Dose: 0.5 mg Vancomycin HCl 1 gm/ Sodium (Chloride) 250 mls @ 167 mls/hr IV Q8H [facility] Last Admin: 12/01/18 15:55 Dose: 167 mls/hr Acetaminophen (Ofirmev) 100 mls @ 400 mls/hr IV Q6HR PRN PRN Reason: PAIN Last Infusion: 11/28/18 16:24 Dose: Infused Insulin Aspart (Novolog) 3 - 11 unit SUBQ 0800,1200,1700,2100 [facility]; Protocol Last Admin: 12/01/18 16:51 Dose: 15 unit Insulin Glargine (Lantus Solostar) 20 unit SUBQ QPM [facility] Metoclopramide HCl (Reglan) 10 mg PO Q6HR [facility] Last Admin: 12/01/18 15:54 Dose: 10 mg Ondansetron HCl (Zofran Inj) 4 mg IVP Q6HR PRN PRN Reason: Nausea / Vomiting Last Admin: 11/30/18 07:39 Dose: 4 mg Pantoprazole Sodium (Protonix) 40 mg IVP QDAC [facility] Last Admin: 12/01/18 06:44 Dose: 40 mg Promethazine HCl (Phenergan Inj) 25 mg IM Q6HR PRN PRN Reason: Nausea / Vomiting Quetiapine Fumarate (Seroquel) 50 mg PO BID [facility] Last Admin: 12/01/18 08:25 Dose: 50 mg Saccharomyces Boulardii (Florastor) 250 mg PO BIDWM [facility] Last Admin: 12/01/18 08:24 Dose: 250 mg Sodium Chloride (Normal Saline Flush 0.9%) 10 ml IVP PRN PRN PRN Reason: NEEDED PER PROVIDER ORDERS Last Admin: 12/01/18 06:44 Dose: 10 ml Sodium Chloride (Normal Saline Flush 0.9%) 10 ml IVP 0100,0900,1700 [facility] Last Admin: 12/01/18 08:18 Dose: 10 ml Sodium Chloride (Normal Saline Flush 0.9%) 20 ml IVP PRN PRN PRN Reason: After Blood Draw Last Admin: 12/01/18 04:41 Dose: 20 ml Sucralfate (Carafate) 1 gm PO 0700,1100,1600,2200 [facility] Last Admin: 12/01/18 15:54 Dose: 1 gm Dicyclomine [Bentyl] 10 mg PO BID 11/28/18 Fluoxetine HCl 40 mg PO DAILY 11/28/18 Gabapentin 300 mg PO TID 11/28/18 Metoclopramide [Reglan] 10 mg PO Q6H PRN 11/28/18 Quetiapine Fumarate [Quetiapine Fumarate ER] 50 mg PO BID 11/28/18 Objective - Vital Signs/Intake & Output Reviewed Vital Signs: Yes Vital Signs: Vital Signs x48h Pulse Resp Pulse Ox 12/01/18 10:00 89 12 100 Intake & Output: Intake & Output 11/28/18 11/29/18 11/30/18 12/01/18 23:59 23:59 23:59 23:59 Intake Total 3890.0 5634.0 5667.121 1470 Output Total 2100 812 3700 3100 Balance 1790.0 4822.0 1967.121 1630 - Objective General Appearance: positive: No acute distress, Alert, Other (Thin appearing and cachectic, Chronically ill-appearing) Eyes Bilateral: positive: PERRL, EOMI ENT: positive: ENT inspection nml, Pharynx nml, No signs of dehydration Neck: positive: Nml inspection, Thyroid nml, No JVD. negative: Thyromegaly Respiratory: positive: Chest non-tender, No respiratory distress, Breath sounds nml Cardiovascular: positive: Regular rate & rhythm, No murmur, No gallop Peripheral Pulses: 2+ Dorsalis pedis (R), 2+ Dorsalis pedis (L) Abdomen: positive: No distention, Tenderness (Mild epigastric tenderness). negative: Guarding, Rebound, Hepatomegaly Skin: positive: Color nml, No rash, Warm Extremities: positive: Non-tender, Full ROM, Nml appearance Neurologic/Psychiatric: positive: Oriented x3, CN's nml (2-12) - Lab Results Fish Bones: 12/01/18 04:30 12/01/18 04:30 Other Labs: Lab Results x24hrs 12/01/18 12/01/18 12/01/18 Range/Units 04:30 04:30 04:30 WBC 4.1 L (4.8-10.8) x10^3/uL RBC 4.04 L (4.70-6.10) 10^6/uL Hgb 11.3 L (14.0-18.0) g/dL Hct 34.1 L (42.0-52.0) % MCV 84.6 (80.0-94.0) fL MCH 27.9 (27.0-31.0) pg MCHC 33.0 (32.0-36.0) g/dL RDW 15.2 H (12.0-15.0) % Plt Count 238 (130-450) 10^3/uL MPV 7.6 (7.4-11.4) fL Neut # (Auto) 2.1 (1.5-6.6) 10^3/uL Lymph # (Auto) 1.6 (1.5-3.5) 10^3/uL [place] # (Auto) 0.3 (0.0-1.0) 10^3/uL Eos # (Auto) 0.0 (0.0-0.7) 10^3/uL Baso # (Auto) 0.0 (0.0-0.1) 10^3/uL Absolute Nucleated RBC 0.00 x10^3/uL Nucleated RBC % 0.0 /100WBC VBG pH 7.366 (7.31-7.41) Sodium 139 (135-145) mmol/L Potassium 3.5 (3.5-5.0) mmol/L Chloride 105 (101-111) mmol/L Carbon Dioxide 24 (21-32) mmol/L Anion Gap 10.0 (6-13) BUN < 5 L (6-20) mg/dL Creatinine 0.4 L (0.6-1.2) mg/dL Estimated GFR (MDRD) 274 (>89) Glucose 266 H (70-100) mg/dL Calcium 8.6 (8.5-10.3) mg/dL Ionized Calcium 1.22 Phosphorus 2.9 (2.5-4.6) mg/dL Magnesium 2.0 (1.7-2.8) mg/dL Total Bilirubin (0.2-1.0) mg/dL AST (10-42) IU/L ALT (10-60) IU/L Alkaline Phosphatase (42-121) IU/L Total Protein (6.7-8.2) g/dL Albumin (3.2-5.5) g/dL Globulin (2.1-4.2) g/dL Albumin/Globulin Ratio (1.0-2.2) 11/30/18 11/30/18 Range/Units 22:25 22:25 WBC (4.8-10.8) x10^3/uL RBC (4.70-6.10) 10^6/uL Hgb (14.0-18.0) g/dL Hct (42.0-52.0) % MCV (80.0-94.0) fL MCH (27.0-31.0) pg MCHC (32.0-36.0) g/dL RDW (12.0-15.0) % Plt Count (130-450) 10^3/uL MPV (7.4-11.4) fL Neut # (Auto) (1.5-6.6) 10^3/uL Lymph # (Auto) (1.5-3.5) 10^3/uL [place] # (Auto) (0.0-1.0) 10^3/uL Eos # (Auto) (0.0-0.7) 10^3/uL Baso # (Auto) (0.0-0.1) 10^3/uL Absolute Nucleated RBC x10^3/uL Nucleated RBC % /100WBC VBG pH (7.31-7.41) Sodium 136 (135-145) mmol/L Potassium 3.4 L (3.5-5.0) mmol/L Chloride 107 (101-111) mmol/L Carbon Dioxide 21 (21-32) mmol/L Anion Gap 8.0 (6-13) BUN 5 L (6-20) mg/dL Creatinine 0.4 L (0.6-1.2) mg/dL Estimated GFR (MDRD) 274 (>89) Glucose 338 H (70-100) mg/dL Calcium 8.5 (8.5-10.3) mg/dL Ionized Calcium NO Phosphorus 2.4 L (2.5-4.6) mg/dL Magnesium 1.8 (1.7-2.8) mg/dL Total Bilirubin 0.7 (0.2-1.0) mg/dL AST 13 (10-42) IU/L ALT 11 (10-60) IU/L Alkaline Phosphatase 71 (42-121) IU/L Total Protein 6.0 L (6.7-8.2) g/dL Albumin 2.7 L (3.2-5.5) g/dL Globulin 3.3 (2.1-4.2) g/dL Albumin/Globulin Ratio 0.8 L (1.0-2.2) ABX Reporting Has patient been on IV antibiotics over the past 48 hours?: Yes Sepsis Event Note (H) - Evaluation Current Stage of Sepsis: Resolved Possible source of Sepsis: positive: Skin/soft tissue, Other (1/2 blood culturesMRSA positive On 11/24/18) - Sepsis Criteria Sepsis Criteria: Recorded Heart Rate greater than 90 bpm Assessment/Plan - Problem List (1) MRSA bacteremia Impression: Continue with IV vancomycin to have a total antibiotic treatment course of 4 weeks with a end date of 12/19/18. Patient to have home infusion IV antibiotics. Repeat blood culture after 1 day is negative growth to date. 2D echo shows no vegetations or valvular heart disease or any thrombi formation. (2) Facial abscess Impression: Would continue with IV antibiotics for approximately 4 weeks total duration with an end date of 12/19/18 as patient has risk factors for poor wound healing and would benefit from continued IV vancomycin for him wound culture showing MRSA with similar sensitivities to blood culture /. Patient did have sensitivities to clindamycin, Zyvox, gentamicin, as well as Bactrim which likelihood of this being coming acquired MRSA is present. (3) Abdominal pain Impression: This has been minimal now that patient's diabetic gastroparesis has improved significantly and currently receives Dilaudid. Will change pain medications to oxycodone oral as patient is tolerating oral diet now. Stool H. pylori still pending. Marinol has been given for antiemetic benefit. Qualifiers: Abdominal location: epigastric Qualified Code(s): R10.13 - Epigastric pain (4) Diabetes mellitus, insulin-dependent (IDDM or type I) Impression: Hemoglobin A1c 13.5 uncontrolled patient has history of noncompliance. Glucose has been soaring in the 200s now in the 400 range. However, patient's DKA has resolved with an on gap of 10 with a CO2 of 24 continues on high-dose insulin sliding scale as well as Lantus which he typically gets at 40 units subcu daily. Would place back on regimen of his daily Lantus. As patient is eating 100% of his diet. Diabetic education has been provided. Qualifiers: Diabetes mellitus complication status: with hyperglycemia Qualified Code(s): E10.65 - Type 1 diabetes mellitus with hyperglycemia
[2018-12-01] MEDS: FERROUS SULFATE 300 MG/5 ML UDC PO SCH (17:57)
[2018-12-01] MEDS ORDERED: INSULIN GLARGINE 300 UNIT/3 ML PEN SUBQ SCH ×2 (21:00)
[2018-12-02] MEDS ORDERED: HYDROmorphone 0.5 MG/0.5 ML SYRINGE ONE (00:28)
[2018-12-02] MEDS: HYDROmorphone 0.5 MG/0.5 ML SYRINGE IVP PRN ×7 (00:41→21:24)
[2018-12-02] MEDS: SODIUM CHLORIDE FLUSH 0.9% 10 ML SYRINGE IVP SCH ×3 (00:41→15:18)
[2018-12-02] MEDS: VANCOMYCIN INJ 1 GM in SODIUM CHLORIDE 0.9% 250 ML IV SCH ×3 (00:43→15:19)
[2018-12-02] MEDS: METOCLOPRAMIDE 10 MG TABLET PO SCH ×4 (00:43→17:03)
[2018-12-02] MEDS: SODIUM CHLORIDE FLUSH 0.9% 10 ML SYRINGE IVP PRN ×10 (05:15→21:24)
[2018-12-02 05:19] LABS: BASOPHILS % (AUTO) 0.8 %; EOSINOPHILS # (AUTO) 0.1 10^3/uL (0.0-0.7); EOSINOPHILS % (AUTO) 2.9 %; HGB - HEMOGLOBIN 11.7 g/dL (14.0-18.0); LYMPHOCYTES # (AUTO) 1.6 10^3/uL (1.5-3.5); LYMPHOCYTES % (AUTO) 35.9 %; MEAN CORPUSCULAR HEMOGLOBIN 27.9 pg (27.0-31.0); MEAN CORPUSCULAR HGB CONC 33.4 g/dL (32.0-36.0); MEAN CORPUSCULAR VOLUME 83.6 fL (80.0-94.0); MEAN PLATELET VOLUME 7.4 fL (7.4-11.4); MONOCYTES # (AUTO) 0.2 10^3/uL (0.0-1.0); MONOCYTES % (AUTO) 5.6 %; NEUTROPHILS # (AUTO) 2.4 10^3/uL (1.5-6.6); NEUTROPHILS % (AUTO) 54.8 %; PLT - PLATELET COUNT 239 10^3/uL (130-450); RED CELL DISTRIBUTION WIDTH 15.3 % (12.0-15.0); WHITE BLOOD COUNT 4.3 x10^3/uL (4.8-10.8)
[2018-12-02 05:21] LABS: VBG PH 7.407 (7.31-7.41)
[2018-12-02] MEDS: GABAPENTIN 300 MG CAPSULE PO SCH ×3 (05:35→21:25)
[2018-12-02] MEDS: DRONABINOL 2.5 MG CAPSULE PO SCH ×3 (05:35→21:25)
[2018-12-02 05:36] LABS: CALCIUM 9.1 mg/dL (8.5-10.3); CREATININE 0.5 mg/dL (0.6-1.2); MAGNESIUM 1.8 mg/dL (1.7-2.8); PHOSPHORUS 4.8 mg/dL (2.5-4.6)
[2018-12-02] MEDS: SUCRALFATE 1 GM/10 ML UDC PO SCH ×4 (05:36→21:25)
[2018-12-02] MEDS: PANTOPRAZOLE 40 MG VIAL IVP SCH (05:38)
[2018-12-02] MEDS: INSULIN ASPART 300 UNIT/3 ML PEN SUBQ SCH ×4 (08:52→21:26)
[2018-12-02] MEDS: SACCHAROMYCES BOULARDII 250 MG CAPSULE PO SCH ×2 (08:55→17:04)
[2018-12-02] MEDS: FLUoxetine 10 MG CAPSULE PO SCH (08:55)
[2018-12-02] MEDS: QUEtiapine 25 MG TABLET PO SCH ×2 (08:56→21:25)
[2018-12-02] MEDS: DICYCLOMINE 10 MG CAPSULE PO SCH ×2 (08:57→21:25)
[2018-12-02] MEDS: FERROUS SULFATE 300 MG/5 ML UDC PO SCH (10:49)
[2018-12-02] MEDS ORDERED: POLYETHYLENE GLYCOL 3350 17 GM PACKET PO SCH (11:00)
--- NOTE | 2018-12-02 13:56 | PROVIDER PROGRESS NOTE ---
Subjective - Prog Note Date Prog Note Date: 12/02/18 Prog Note Time: 13:54 - Subjective Pt reports feeling: Improved (Patient has abdominal pain) Subjective: Patient conveys that he has postprandial abdominal pain and this does improve with Reglan along with previously on [place]. Currently on IV antibiotics via PICC with no redness fevers chills nausea or vomiting currently. Current Medications - Current Medications Current Medications: Active Medications Bethanechol Chloride (Urecholine) 10 mg PO QID PRN PRN Reason: urinary retention Dicyclomine HCl (Bentyl) 10 mg PO BID [facility] Last Admin: 12/02/18 08:57 Dose: 10 mg Dronabinol (Marinol) 2.5 mg PO ACHS [facility] Ferrous Sulfate (Feosol Liquid) 300 mg PO DAILYWM [facility] Last Admin: 12/02/18 10:49 Dose: 300 mg Fluoxetine HCl (Prozac) 40 mg PO DAILY [facility] Last Admin: 12/02/18 08:55 Dose: 40 mg Gabapentin (Neurontin) 300 mg PO TID [facility] Last Admin: 12/02/18 05:35 Dose: 300 mg Hydromorphone HCl (Dilaudid Inj Syringe) 0.5 mg IVP Q3H PRN PRN Reason: PAIN Last Admin: 12/02/18 12:59 Dose: 0.5 mg Vancomycin HCl 1 gm/ Sodium (Chloride) 250 mls @ 167 mls/hr IV Q8H [facility] Last Infusion: 12/02/18 10:27 Dose: Infused Acetaminophen (Ofirmev) 100 mls @ 400 mls/hr IV Q6HR PRN PRN Reason: PAIN Last Infusion: 11/28/18 16:24 Dose: Infused Insulin Aspart (Novolog) 3 - 11 unit SUBQ 0800,1200,1700,2100 [facility]; Protocol Last Admin: 12/02/18 12:20 Dose: 7 unit Insulin Glargine (Lantus Solostar) 50 unit SUBQ QPM [facility] Metoclopramide HCl (Reglan) 10 mg PO Q6HR [facility] Last Admin: 12/02/18 12:19 Dose: 10 mg Ondansetron HCl (Zofran Inj) 4 mg IVP Q6HR PRN PRN Reason: Nausea / Vomiting Last Admin: 11/30/18 07:39 Dose: 4 mg Pantoprazole Sodium (Protonix) 40 mg IVP QDAC [facility] Last Admin: 12/02/18 05:38 Dose: 40 mg Polyethylene Glycol (Miralax) 17 gm PO DAILY [facility] Last Admin: 12/02/18 10:49 Dose: 17 gm Promethazine HCl (Phenergan Inj) 25 mg IM Q6HR PRN PRN Reason: Nausea / Vomiting Quetiapine Fumarate (Seroquel) 50 mg PO BID [facility] Last Admin: 12/02/18 08:56 Dose: 50 mg Saccharomyces Boulardii (Florastor) 250 mg PO BIDWM [facility] Last Admin: 12/02/18 08:55 Dose: 250 mg Sodium Chloride (Normal Saline Flush 0.9%) 10 ml IVP PRN PRN PRN Reason: NEEDED PER PROVIDER ORDERS Last Admin: 12/02/18 12:59 Dose: 10 ml Sodium Chloride (Normal Saline Flush 0.9%) 10 ml IVP 0100,0900,1700 [facility] Last Admin: 12/02/18 11:09 Dose: 10 ml Sodium Chloride (Normal Saline Flush 0.9%) 20 ml IVP PRN PRN PRN Reason: After Blood Draw Last Admin: 12/02/18 05:15 Dose: 20 ml Sucralfate (Carafate) 1 gm PO 0700,1100,1600,2200 [facility] Last Admin: 12/02/18 11:08 Dose: 1 gm Tramadol HCl (Ultram) 50 mg PO [facility] Dicyclomine [Bentyl] 10 mg PO BID 11/28/18 Fluoxetine HCl 40 mg PO DAILY 11/28/18 Gabapentin 300 mg PO TID 11/28/18 Metoclopramide [Reglan] 10 mg PO Q6H PRN 11/28/18 Quetiapine Fumarate [Quetiapine Fumarate ER] 50 mg PO BID 11/28/18 Objective - Vital Signs/Intake & Output Reviewed Vital Signs: Yes Vital Signs: Vital Signs x48h Temp Pulse Resp BP Pulse Ox 12/02/18 13:00 37.2 C 96 20 122/83 H 96 12/02/18 08:44 101 H 119/90 H 98 12/02/18 08:10 36.7 C 18 Intake & Output: Intake & Output 11/29/18 11/30/18 12/01/18 12/02/18 23:59 23:59 23:59 23:59 Intake Total 5634.0 5667.121 2140 1600 Output Total 812 3700 3100 Balance 4822.0 1967.121 -960 1600 - Objective General Appearance: positive: No acute distress, Alert, Anxious Eyes Bilateral: positive: Normal inspection, PERRL, EOMI ENT: positive: ENT inspection nml, Pharynx nml, No signs of dehydration Neck: positive: Nml inspection, Thyroid nml, No JVD, Trachea midline. negative: Thyromegaly Respiratory: positive: Chest non-tender, No respiratory distress, Breath sounds nml Cardiovascular: positive: Regular rate & rhythm, No murmur, No gallop Peripheral Pulses: 2+ Dorsalis pedis (R), 2+ Dorsalis pedis (L) Abdomen: positive: Non-tender, No organomegaly, Nml bowel sounds, No distention Skin: positive: Color nml, No rash, Warm Extremities: positive: Non-tender, Full ROM, Nml appearance Neurologic/Psychiatric: positive: Oriented x3, CN's nml (2-12) - Lab Results Fish Bones: 12/02/18 05:15 12/02/18 05:15 Other Labs: Lab Results x24hrs 12/02/18 12/02/18 12/02/18 Range/Units 05:15 05:15 05:15 WBC 4.3 L (4.8-10.8) x10^3/uL RBC 4.20 L (4.70-6.10) 10^6/uL Hgb 11.7 L (14.0-18.0) g/dL Hct 35.1 L (42.0-52.0) % MCV 83.6 (80.0-94.0) fL MCH 27.9 (27.0-31.0) pg MCHC 33.4 (32.0-36.0) g/dL RDW 15.3 H (12.0-15.0) % Plt Count 239 (130-450) 10^3/uL MPV 7.4 (7.4-11.4) fL Neut # (Auto) 2.4 (1.5-6.6) 10^3/uL Lymph # (Auto) 1.6 (1.5-3.5) 10^3/uL [place] # (Auto) 0.2 (0.0-1.0) 10^3/uL Eos # (Auto) 0.1 (0.0-0.7) 10^3/uL Baso # (Auto) 0.0 (0.0-0.1) 10^3/uL Absolute Nucleated RBC 0.00 x10^3/uL Nucleated RBC % 0.1 /100WBC VBG pH 7.407 (7.31-7.41) Ionized Calcium 1.20 (1.15-1.33) mmol/L Sodium 137 (135-145) mmol/L Potassium 3.6 (3.5-5.0) mmol/L Chloride 96 L (101-111) mmol/L Carbon Dioxide 29 (21-32) mmol/L Anion Gap 12.0 (6-13) BUN 12 (6-20) mg/dL Creatinine 0.5 L (0.6-1.2) mg/dL Estimated GFR (MDRD) 212 (>89) Glucose 225 H (70-100) mg/dL Calcium 9.1 (8.5-10.3) mg/dL Phosphorus 4.8 H (2.5-4.6) mg/dL Magnesium 1.8 (1.7-2.8) mg/dL Albumin 3.0 L (3.2-5.5) g/dL ABX Reporting Has patient been on IV antibiotics over the past 48 hours?: Yes Sepsis Event Note (H) - Evaluation Current Stage of Sepsis: Resolved Possible source of Sepsis: positive: Skin/soft tissue, Other (1/2 blood culturesMRSA positive On 11/24/18) - Sepsis Criteria Sepsis Criteria: Recorded Heart Rate greater than 90 bpm Assessment/Plan - Problem List (1) MRSA bacteremia Impression: Patient's repeat blood cultures 2 sets are negative growth today. 2D echo does not show any vegetations motion wall abnormalities or valvular heart disease. We will continue with 4-week regimen total antibiotics with IV vancomycin via PICC line. Patient does have high risk of line sepsis and/or CLABSI As he is an uncontrolled type I diabetic with poor wound healing. (2) Facial abscess Impression: Continue with current IV vancomycin infusion via PICC line. Patient will receive a total of 4 weeks of IV antibiotics. (3) Abdominal pain Impression: Patient has recurrence to abdominal pain with underlying gastritis which currently does not appear to have peptic ulcer disease although he does have some anemia. Currently no coffee-ground emesis nausea vomiting or recurrence of diabetic gastroparesis. Would place on either [place] or tramadol AC at bedtime to continue with his Reglan before meals at bedtime. I have advised patient to avoid GI irritants such as spicy foods, citric liquids or other substances that may irritate GI lining. Patient had a stool H. pylori taken on this admission, Pending results. Qualifiers: Abdominal location: epigastric Qualified Code(s): R10.13 - Epigastric pain (4) Diabetes mellitus, insulin-dependent (IDDM or type I) Impression: Titration of patient's basal coverage to 50 units subcu every afternoon. Likely will need to divide this and 25 units subcu twice daily as outpatient. Patient would benefit from endocrinology evaluation as a PCP referral to perhaps see if insulin pump management treatment Would benefit him as patient is with recurrence of DKA and infection. Patient has had a hyperglycemic excursions. Hemoglobin A1c approximately 13.5 uncontrolled. This is all secondary to noncompliance. software educator has provided education and this will be coordinated as an outpatient Sena who is a software educator would follow-up as an outpatient. Patient will receive a Wednesday appointment With Heidy guzmán on 12/09/18 in order to adhere to current glycemic control and regimen. Qualifiers: Diabetes mellitus complication status: with hyperglycemia Qualified Code(s): E10.65 - Type 1 diabetes mellitus with hyperglycemia (5) PICC (peripherally inserted central catheter) in place Impression: Right-sided PICC line appears to be centrally placed and without surrounding erythema with good flushing. Patient will be educated and counseled at home on PICC line care. Patient will continue with home infusion with IV vancomycin via PICC line for approximately 4 weeks total antibiotic treatment with previously stated and date. Due to patient's prior history of uncontrolled type 1 insulin diabetes mellitus will likely have a high risk of CLABSI and/or soft tissue infections if glycemic control is not improved.
[2018-12-02] MEDS: traMADol 50 MG TABLET PO SCH ×3 (15:19→21:25)
--- NOTE | 2018-12-02 20:03 | Discharge Plan ---
Discharge Plan Disposition: Home, Self Care Condition: Good Prescriptions: Dronabinol [Marinol] 2.5 mg PO ACHS #90 capsule Insulin Aspart [NovoLOG] 7 unit SUBQ TIDWM #3 pen Insulin Glargine [Lantus Solostar] 25 unit SUBQ BID #4 pen Potassium Chloride 40 meq PO DAILY #10 tablet.er traMADol [Ultram] 50 mg PO ACHS #90 tablet Diet: Diabetic Activity Restrictions: Activity as Tolerated Shower Restrictions: No Driving Restrictions: No Weight Bearing: Full Weight Instruction Topics: Diabetes [place] Complications, MRSA Infec, DKA Prevent Ch No Smoking: If you smoke, Please STOP! Call for help. Follow-up with: Ailin Kumar DNP [Primary Care Provider] - 12/09/18 9:00 am (To f/u with PCP on Wednesday12/09/18 in am)
[2018-12-02] MEDS ORDERED: INSULIN GLARGINE 300 UNIT/3 ML PEN SUBQ SCH ×2 (21:00)
[2018-12-03 00:23] VITALS: BP 113/76
[2018-12-03] MEDS: VANCOMYCIN INJ 1 GM in SODIUM CHLORIDE 0.9% 250 ML IV SCH ×2 (00:26→07:24)
[2018-12-03] MEDS: METOCLOPRAMIDE 10 MG TABLET PO SCH ×2 (00:27→06:05)
[2018-12-03] MEDS: SODIUM CHLORIDE FLUSH 0.9% 10 ML SYRINGE IVP SCH (00:27)
[2018-12-03 04:34] LABS: VBG PH 7.425 (7.31-7.41)
[2018-12-03 04:35] LABS: EOSINOPHILS # (AUTO) 0.1 10^3/uL (0.0-0.7); EOSINOPHILS % (AUTO) 2.5 %; HGB - HEMOGLOBIN 11.7 g/dL (14.0-18.0); LYMPHOCYTES # (AUTO) 1.5 10^3/uL (1.5-3.5); LYMPHOCYTES % (AUTO) 35.6 %; MEAN CORPUSCULAR HEMOGLOBIN 28.1 pg (27.0-31.0); MEAN CORPUSCULAR HGB CONC 33.9 g/dL (32.0-36.0); MEAN CORPUSCULAR VOLUME 82.9 fL (80.0-94.0); MEAN PLATELET VOLUME 7.2 fL (7.4-11.4); MONOCYTES # (AUTO) 0.3 10^3/uL (0.0-1.0); MONOCYTES % (AUTO) 6.8 %; NEUTROPHILS # (AUTO) 2.3 10^3/uL (1.5-6.6); NEUTROPHILS % (AUTO) 54.1 %; PLT - PLATELET COUNT 238 10^3/uL (130-450); RED BLOOD COUNT 4.15 10^6/uL (4.70-6.10); RED CELL DISTRIBUTION WIDTH 15.2 % (12.0-15.0); WHITE BLOOD COUNT 4.3 x10^3/uL (4.8-10.8)
[2018-12-03 04:45] LABS: CALCIUM 9.3 mg/dL (8.5-10.3); CREATININE 0.4 mg/dL (0.6-1.2); PHOSPHORUS 4.8 mg/dL (2.5-4.6)
[2018-12-03] MEDS: SUCRALFATE 1 GM/10 ML UDC PO SCH (06:04)
[2018-12-03] MEDS: GABAPENTIN 300 MG CAPSULE PO SCH (06:05)
[2018-12-03] MEDS: PANTOPRAZOLE 40 MG VIAL IVP SCH (06:05)
[2018-12-03] MEDS: DRONABINOL 2.5 MG CAPSULE PO SCH (06:05)
[2018-12-03] MEDS: traMADol 50 MG TABLET PO SCH (06:06)
[2018-12-03] MEDS ORDERED: POTASSIUM CHLORIDE 20 MEQ TABLET PO ONE ×2 (06:36→09:00)
--- NOTE | 2018-12-03 07:07 | DISCHARGE SUMMARY ---
"Discharge Summary Admit Date: 11/28/18 Discharge Date: 12/03/18 Discharging Provider: Dr. Garnett Primary Care Provider: Ailin Kumar Code Status: Attempt Resuscitation Condition at Discharge: Good Discharge Disposition: 01 Home, Self Care Discharge Facility Name: [facility] - DIAGNOSES Admission Diagnoses: (1) Sepsis (2) Facial abscess (3) DKA (diabetic ketoacidoses) (4) Abdominal pain (5) Peripheral neuropathy (6) Nausea & vomiting/Diabetic Gastroparesis (7) Neurogenic bladder secondary to Type 1 DM Discharge Diagnoses with Status of Each Condition: (1) MRSA bacteremia (2) Sepsis; resolved (3) Facial abscess; improved (4) DKA (diabetic ketoacidoses); resolved (5) Abdominal pain; improved (6) Peripheral neuropathy; stable (7) Nausea & vomiting/Diabetic Gastroparesis; improved (8) Neurogenic bladder secondary to Type 1 DM; chronic and stable (9) Diabetes mellitus, insulin-dependent (IDDM or type I); uncontrolled (10) PICC (peripherally inserted central catheter) in place; stable - HPI History of Present Illness: Patient is a 18 y/o male with Hx DM I and is very well known to this institution who presented to the ED with complain of generally not feeling well, intractable nausea and vomiting. Symptoms have been going on for the past 2-3 days. He has an abscess just lateral to his right eye which he reports started about 4 days ago. He was in the ED on 11/24/18 for it. It was I&D'ed, blood cultures were sent and he was place on augmentin/bactrim and discharged home after receiving a dose of vancomycin. One of the blood culture grew MRSA. As a result the patient was called back for IV treatment. He declined returning to the ED. In the mean time he has been very nauseous and vomiting. Consequently he is not tolerating his medications. He presents today complaining of generalized pain. He reports chest and abdominal pain from excessive vomiting. He reports chills but no fever. Labs done in the ED showed a glucose level of 400's and an anion gap of 25. As a result of his persistent nausea and vomiting, he is being admitted. - CONSULTS | PROCEDURES Consultations: Vascular service for PICC line plcmt Procedures: PICC line placement without any complications - HOSPITAL COURSE Hospital Course: Mr. Thomas Kearney is a poorly controlled Type 1 Diabetic with a hgbA1c 13.5% who was admitted for MRSA sepsis with 1/2 blood cultures showing MRSA with proven wound cultures MRSA. Patient had 2 incision and drainage procedures with cultures showing MRSA, for which patient was on oral abx's with bactrim and clindamycin but due to DM-gastroparesis did not complete outpatient regimen. He was subsequently started on IV vancomycin, pain mgmt with IV Ofirmev and morphine then switched to dilaudid and then PO tramadol. During the interim patient developed DKA recurrence due to his DM-gastroparesis and was electrolyte depleted and dehydrated. Patient's repeat blood cultures 2 sets are negative growth to date. 2D echo does not show any vegetations motion wall abnormalities or valvular heart disease. PICC line was placed due to patients high risk of future MRSA infections with poor glycemic control and medical compliance and the fact that he has recurrence in DM gastroparesis. Patient did in fact display drug-seeking behavior with the request of more IV dilaudid or morphine to control his abdominal pain. Patient has recurrence to abdominal pain with underlying gastritis which currently does not appear to have peptic ulcer disease although he does have some anemia. Currently no coffee-ground emesis nausea vomiting or recurrence of diabetic gastroparesis. Would place on either Melber or tramadol AC at bedtime to continue with his Reglan before meals at bedtime. I have advised patient to avoid GI irritants such as spicy foods, citric liquids or other substances that may irritate GI lining. Patient had a stool H. pylori taken on this admission, Pending results. Patients IDDM was managed with Titration of patient's basal coverage to 50 units subcu every afternoon. Likely will need to divide this and 25 units subcu twice daily as outpatient. Patient would benefit from endocrinology evaluation as a PCP referral to perhaps see if insulin pump management treatment Would benefit him as patient is with recurrence of DKA and infection. Patient has had a hyperglycemic excursions. Hemoglobin A1c approximately 13.5 uncontrolled. This is all secondary to noncompliance. life skills educator has provided education and this will be coordinated as an outpatient Sena who is a clinical systems educator would follow-up as an outpatient. Patient will receive a Wednesday appointment With Heidy Kumar on 12/09/18 in order to adhere to current glycemic control and regimen Right facial abscess was seen by MAC service and was dressed with recommendations placed to have patient follow up as an outpatient. Right-sided PICC line appears to be centrally placed and without surrounding erythema with good flushing. Patient will be educated and counseled at home on PICC line care. Patient will continue with home infusion with IV vancomycin via PICC line for approximately 4 weeks total antibiotic treatment with previously stated and date. Due to patient's prior history of uncontrolled type 1 insulin diabetes mellitus will likely have a high risk of CLABSI and/or soft tissue infections if glycemic control is not improved. We will continue with 4-week regimen total antibiotics with IV vancomycin via PICC line. Patient does have high risk of line sepsis and/or CLABSI As he is an uncontrolled type I diabetic with poor wound healing. - ALLERGIES Allergies/Adverse Reactions: Allergies Allergy/AdvReac Type Severity Reaction Status Date / Time No Known Drug Allergies Allergy Verified 11/24/18 10:09 - MEDICATIONS Home Medications: Ambulatory Orders Medication Instructions Recorded Confirmed Dicyclomine [Bentyl] 10 mg PO BID 11/28/18 11/28/18 Fluoxetine HCl 40 mg PO DAILY 11/28/18 11/28/18 Gabapentin 300 mg PO TID 11/28/18 11/28/18 Metoclopramide [Reglan] 10 mg PO Q6H PRN 11/28/18 11/28/18 Quetiapine Fumarate [Quetiapine 50 mg PO BID 11/28/18 11/28/18 Fumarate ER] Dronabinol [Marinol] 2.5 mg PO ACHS #90 capsule 12/02/18 Insulin Aspart [NovoLOG] 7 unit SUBQ TIDWM #3 pen 12/02/18 Insulin Glargine [Lantus Solostar] 25 unit SUBQ BID #4 pen 12/02/18 traMADol [Ultram] 50 mg PO ACHS #90 tablet 12/02/18 Potassium Chloride 40 meq PO DAILY #10 tablet.er 12/03/18 - PHYSICAL EXAM AT DISCHARGE General Appearance: positive: No acute distress, Alert, Other (thin and cachectic ) Eyes Bilateral: positive: Normal inspection, PERRL, EOMI ENT: positive: ENT inspection nml, Pharynx nml, No signs of dehydration Neck: positive: Nml inspection, Thyroid nml, No JVD, Trachea midline Respiratory: positive: Chest non-tender, No respiratory distress, Breath sounds nml Cardiovascular: positive: Regular rate & rhythm, No murmur, No gallop Peripheral Pulses: positive: 2+ Abdomen: positive: Non-tender, No organomegaly, Nml bowel sounds, No distention. negative: Tenderness Back: positive: Nml inspection Skin: positive: Color nml, No rash, Warm Extremities: positive: Non-tender, Full ROM, Nml appearance, Other (right side picc line site is C/D/I) Neurologic/Psychiatric: positive: Oriented x3, CN's nml (2-12), Motor nml, Sensation nml - LABS Result Diagrams: 12/03/18 04:24 12/03/18 04:24 - DIAGNOSTIC IMAGING Diagnostic Imaging Results: Final report reviewed (CXR with centrally placed PICC line in good position ) - SEPSIS Current Stage of Sepsis: Resolved Possible source of Sepsis: Skin/soft tissue, Other (1/2 blood culturesMRSA positive On 11/24/18) Sepsis Criteria: Recorded Heart Rate greater than 90 bpm - FOLLOW UP Follow Up: PCP on 12/09/18 in am. Will be having home IV abx infusions with Vancomycin as previously ordered with end date per d/c summary - TIME SPENT Time Spent in Discharge (Minutes): 35"
[2018-12-03] MEDS: INSULIN ASPART 300 UNIT/3 ML PEN SUBQ SCH (08:22)
[2018-12-03] MEDS: SACCHAROMYCES BOULARDII 250 MG CAPSULE PO SCH (09:17)
== END 2018-12-03 09:20 | disposition home or self-care (01) | DRG 871 ==
LOC: EDUNIT# → ED 21:09 → MS2 11-28 05:18 → ICU 11-29 23:12 → MS3 12-02 17:47
PROVIDERS: ADMIT Internal Medicine; ATTEND Family Medicine
PROC: 0J913ZZ Drainage of Face Subcutaneous Tissue and Fascia, Percutaneous Approach (ICD-10-PCS; principal; 2018-11-28)
PROC: 02HV33Z Insertion of Infusion Device into Superior Vena Cava, Percutaneous Approach (ICD-10-PCS; 2018-11-30)
DX: A41.02 Sepsis due to Methicillin resistant Staphylococcus aureus (principal); E10.10 Type 1 diabetes mellitus with ketoacidosis without coma; L02.01 Cutaneous abscess of face; Z68.1 Body mass index [BMI] 19.9 or less, adult; E44.0 Moderate protein-calorie malnutrition; E10.43 Type 1 diabetes mellitus with diabetic autonomic (poly)neuropathy; K31.84 Gastroparesis; N31.9 Neuromuscular dysfunction of bladder, unspecified; E86.0 Dehydration; F32.9 Major depressive disorder, single episode, unspecified; F41.9 Anxiety disorder, unspecified; Z76.5 Malingerer [conscious simulation]; Z91.19 Patient's noncompliance with other medical treatment and regimen; R33.9 Retention of urine, unspecified; D64.9 Anemia, unspecified; R62.7 Adult failure to thrive; K29.70 Gastritis, unspecified, without bleeding
CPT/HCPCS: 10160; 36415; 74018; 80048; 80053; 80069; 80202; 81001; 82009; 82274; 82330; 82803; 82947; 83036; 83540; 83690; 83735; 84100; 84466; 85025; 87040; 87070; 87150; 87181; 87205; 87338; 93306; 96365; 96366; 96367; 96375; 99284; 99285; A9270; C1751; J0131; J1170; J1200; J1756; J1815; J2060; J2765; J3370; Q0167; 71045; 87086

== ENCOUNTER 2019-01-08 07:38 | Outpatient (CLI) | payer MEDICAID | END 2019-01-08 07:39 | disposition critical access hospital (66) | LOC: EMS 07:38 | PROVIDERS: ATTEND Surgery | DX: R10.9 Unspecified abdominal pain (principal); R11.2 Nausea with vomiting, unspecified | CPT/HCPCS: A0425; A0427; A0999 ==

== ENCOUNTER 2019-01-08 07:56 | Inpatient (IN) | payer MEDICAID ==
[2019-01-08] MEDS ORDERED: INSULIN REGULAR HUMAN 100 UNIT in SODIUM CHLORIDE 0.9% 100ML 99 ML IV STA (08:06)
[2019-01-08] MEDS ORDERED: SODIUM CHLORIDE 0.9% 1,000 ML IV ONE (08:06)
[2019-01-08] MEDS ORDERED: METOCLOPRAMIDE 10 MG/2 ML VIAL IVP STA (08:06)
[2019-01-08] MEDS ORDERED: ONDANSETRON 4 MG/2 ML VIAL IVP STA (08:07)
[2019-01-08] MEDS ORDERED: MORPHINE 10 MG/ML VIAL IVP STA ×3 (08:07→13:20)
[2019-01-08] MEDS ORDERED: diphenhydrAMINE INJ 50 MG/ML VIAL IVP STA (08:07)
--- NOTE | 2019-01-08 08:10 | ED Physician Documentation ---
History of Present Illness - Stated complaint Stated Complaint: ABD PX - Chief complaint Chief Complaint: Abd Pain - History obtained from History obtained from: Patient - History of Present Illness Timing: Enter time (399), Today - Additonal information Additional information: 18-year-old type I diabetic well-known to the emergency department for recurrent episodes of diabetic gastroparesis has developed acute abdominal pain nausea and vomiting at 04:00 today. He does not think there is any involvement of his bladder today. He was recently admitted in the hospital with uncontrolled diabetes and intractable vomiting with a facial abscess. Review of Systems Constitutional: denies: Fever Eyes: denies: Decreased vision Ears: denies: Ear pain, Drainage/discharge Nose: denies: Congestion Throat: denies: Sore throat Cardiac: denies: Chest pain / pressure, Palpitations Respiratory: denies: Dyspnea, Cough GI: reports: Abdominal Pain, Nausea, Vomiting : denies: Dysuria, Frequency Skin: denies: Rash Musculoskeletal: denies: Neck pain, Back pain, Extremity pain Neurologic: denies: Generalized weakness, Focal weakness, Numbness PD PAST MEDICAL HISTORY - Past Medical History Past Medical History: Yes Cardiovascular: None Respiratory: None Neuro: Peripheral neuropathy Endocrine/Autoimmune: Type 1 diabetes GI: Other : None HEENT: None Psych: Depression, Anxiety Musculoskeletal: None Derm: None - Past Surgical History Past Surgical History: No - Present Medications Home Medications: Ambulatory Orders Medication Instructions Recorded Confirmed Dicyclomine [Bentyl] 10 mg PO BID 11/28/18 11/28/18 Fluoxetine HCl 40 mg PO DAILY 11/28/18 11/28/18 Gabapentin 300 mg PO TID 11/28/18 11/28/18 Metoclopramide [Reglan] 10 mg PO Q6H PRN 11/28/18 11/28/18 Quetiapine Fumarate [Quetiapine 50 mg PO BID 11/28/18 11/28/18 Fumarate ER] Dronabinol [Marinol] 2.5 mg PO ACHS #90 capsule 12/02/18 Insulin Aspart [NovoLOG] 7 unit SUBQ TIDWM #3 pen 12/02/18 Insulin Glargine [Lantus Solostar] 25 unit SUBQ BID #4 pen 12/02/18 traMADol [Ultram] 50 mg PO ACHS #90 tablet 12/02/18 Potassium Chloride 40 meq PO DAILY #10 tablet.er 12/03/18 - Allergies Allergies/Adverse Reactions: Allergies Allergy/AdvReac Type Severity Reaction Status Date / Time No Known Drug Allergies Allergy Verified 01/08/19 08:01 - Social History Does the pt smoke?: No Smoking Status: Never smoker Does the pt drink ETOH?: Yes Does the pt have substance abuse?: No - Immunizations Immunizations are current?: Yes - POLST Patient has POLST: No POLST Status: Full Code PD ED PE NORMAL - Vitals Vital signs reviewed: Yes (tachy ) - General General: Alert and oriented X 3, Well developed/nourished, Other (18 y/o thin male wretching in the ED with an emesis bag with a scant amount of dark vomitus that is guiac +. Patient is moaning in pain and appears to be in pain. ) - HEENT HEENT: Atraumatic, PERRL, EOMI, Other (dry mucous membranes ) - Neck Neck: Supple, no meningeal sign, No bony TTP - Cardiac Cardiac: RRR, No murmur - Respiratory Respiratory: No respiratory distress, Clear bilaterally - Abdomen Abdomen: Soft, Other (mild general tenderness without guarding or rebound tenderness. ) - Back Back: No CVA TTP, No spinal TTP - Derm Derm: Normal color, Warm and dry, No rash - Extremities Extremities: No deformity, No edema - Neuro 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, big 6 dealer 2-12 intact, No motor deficit, No sensory deficit, Normal speech Eye Opening: Spontaneous Motor: Obeys Commands Verbal: Oriented GCS Score: 15 - Psych Psych: Other (mood is defeated and the affect is blunted. ) Results - Vitals Vitals: Vital Signs - 24 hr 01/08/19 01/08/19 01/08/19 07:58 08:07 09:52 Temperature 36.7 C Heart Rate 122 H 126 H 123 H Respiratory 18 14 14 Rate Blood Pressure 123/86 H 123/96 H 116/81 H O2 Saturation 100 100 92 01/08/19 01/08/19 11:09 13:00 Temperature 37.0 C Heart Rate 127 H 128 H Respiratory 17 13 Rate Blood Pressure 117/82 H 127/96 H O2 Saturation 100 99 Oxygen O2 Source Room air - Labs Labs: Laboratory Tests 01/08/19 01/08/19 01/08/19 08:12 08:12 08:12 WBC 4.7 L RBC 4.88 Hgb 13.6 L Hct 41.2 L MCV 84.5 MCH 27.9 MCHC 33.0 RDW 13.8 Plt Count 285 MPV 8.0 Neut # (Auto) 2.7 Lymph # (Auto) 1.6 Snyder # (Auto) 0.2 Eos # (Auto) 0.1 Baso # (Auto) 0.0 Absolute Nucleated RBC 0.00 Nucleated RBC % 0.1 VBG pH VBG pCO2 VBG pO2 VBG HCO3 VBG Total CO2 VBG O2 Saturation VBG Base Excess Sodium 133 L Potassium 3.2 L Chloride 95 L Carbon Dioxide 24 Anion Gap 14.0 H BUN 18 Creatinine 0.6 Estimated GFR (MDRD) 172 Glucose 343 H Lactic Acid Calcium 9.4 Total Bilirubin 0.6 AST 17 ALT 11 Alkaline Phosphatase 93 Troponin I < 0.04 Total Protein 7.9 Albumin 3.8 Globulin 4.1 Albumin/Globulin Ratio 0.9 L Lipase 25 Urine Color Urine Clarity Urine pH Ur Specific Dalton Urine Protein Urine Glucose (UA) Urine Ketones Urine Occult Blood Urine Nitrite Urine Bilirubin Urine Urobilinogen Ur Leukocyte Esterase Ur Microscopic Review Urine Culture Comments Urine Opiates Screen Ur Oxycodone Screen Urine Methadone Screen Ur Propoxyphene Screen Ur Barbiturates Screen Ur Tricyclics Screen Ur Phencyclidine Scrn Ur Amphetamine Screen U Methamphetamines Scrn U Benzodiazepines Scrn Urine Cocaine Screen U Cannabinoids Screen Serum Ketones SMALL H 01/08/19 01/08/19 01/08/19 08:12 08:12 11:56 WBC RBC Hgb Hct MCV MCH MCHC RDW Plt Count MPV Neut # (Auto) Lymph # (Auto) Snyder # (Auto) Eos # (Auto) Baso # (Auto) Absolute Nucleated RBC Nucleated RBC % VBG pH 7.472 H VBG pCO2 32.1 L VBG pO2 29.2 VBG HCO3 23.6 VBG Total CO2 25.0 VBG O2 Saturation 64.3 VBG Base Excess 0.0 Sodium Potassium Chloride Carbon Dioxide Anion Gap BUN Creatinine Estimated GFR (MDRD) Glucose Lactic Acid 2.5 H Calcium Total Bilirubin AST ALT Alkaline Phosphatase Troponin I Total Protein Albumin Globulin Albumin/Globulin Ratio Lipase Urine Color YELLOW Urine Clarity CLEAR Urine pH 6.5 Ur Specific Dalton <=1.005 Urine Protein NEGATIVE Urine Glucose (UA) >=1000 H Urine Ketones 40 H Urine Occult Blood NEGATIVE Urine Nitrite NEGATIVE Urine Bilirubin NEGATIVE Urine Urobilinogen 0.2 (NORMAL) Ur Leukocyte Esterase NEGATIVE Ur Microscopic Review NOT INDICATED Urine Culture Comments NOT INDICATED Urine Opiates Screen POSITIVE H Ur Oxycodone Screen NEGATIVE Urine Methadone Screen NEGATIVE Ur Propoxyphene Screen NEGATIVE Ur Barbiturates Screen NEGATIVE Ur Tricyclics Screen NEGATIVE Ur Phencyclidine Scrn NEGATIVE Ur Amphetamine Screen POSITIVE H U Methamphetamines Scrn NEGATIVE U Benzodiazepines Scrn NEGATIVE Urine Cocaine Screen POSITIVE H U Cannabinoids Screen NEGATIVE Serum Ketones Procedures - IVC sono (time) 0810 Bedside IVC sono: IVC measures (cm) (1.56), Euvolemia PD MEDICAL DECISION MAKING - ED course Complexity details: reviewed old records, reviewed results, re-evaluated patient, considered differential, d/w patient ED course: 18-year-old type I diabetic male with a history of gastroparesis has developed symptoms again of gastroparesis with abdominal pain and nausea and vomiting. He in the past has had a neurogenic bladder and occasionally have this bladder overfilled to 2 L. Today he does have an overfilled bladder but not to this extent. He arrives having started vomiting at 4:00 in the morning and he is still euvolemic on interrogation the inferior vena cava. His blood sugars are in the upper 300 range. The vomiting is guaiac positive. Here in the emergency department IV is begun he is administered saline at a maintenance rate of 150 mL's per hour, and insulin drip at 4 units/h, intravenous Reglan 10 mg, intravenous Benadryl 25 mg, Zofran 4 mg and morphine 5 mg. The patient has some improvement in symptoms and he is not in DKA. He is hydrated and his sugar is corrected with an insulin drip. He continues to have symptoms and continues to vomit a small amount of dark vomitus that is guaiac positive. His tox screen is positive for cocaine, amphetamine and opiates. He denies use of amphetamine or cocaine and we gave him the opiate. He indicates that his aunt smokes meth in the house. After 5 1/2 hours in the ED he continues to have symptoms and continues to vomit small amounts of dark material. The hospitalist Dr. Brennan is consulted in the case and graciously agrees to admit the patient to the hospital. Departure - Departure Disposition: 66 [facility] DC/Xfer Clinical Impression: Diabetic gastroparesis associated with type 1 diabetes mellitus Intractable nausea and vomiting Qualifiers: Vomiting type: cyclical vomiting Qualified Code(s): G43.A1 - Cyclical vomiting, intractable Gastritis Qualifiers: Gastritis type: unspecified gastritis Chronicity: acute Gastritis bleeding: with bleeding Qualified Code(s): K29.01 - Acute gastritis with bleeding Condition: Fair
[2019-01-08] MEDS ORDERED: PANTOPRAZOLE 40 MG VIAL IVP STA (08:16)
[2019-01-08 08:21] LABS: BASOPHILS % (AUTO) 0.8 %; EOSINOPHILS # (AUTO) 0.1 10^3/uL (0.0-0.7); EOSINOPHILS % (AUTO) 1.9 %; HGB - HEMOGLOBIN 13.6 g/dL (14.0-18.0); LYMPHOCYTES # (AUTO) 1.6 10^3/uL (1.5-3.5); LYMPHOCYTES % (AUTO) 34.5 %; MEAN CORPUSCULAR HEMOGLOBIN 27.9 pg (27.0-31.0); MEAN CORPUSCULAR VOLUME 84.5 fL (80.0-94.0); MONOCYTES # (AUTO) 0.2 10^3/uL (0.0-1.0); MONOCYTES % (AUTO) 4.6 %; NEUTROPHILS # (AUTO) 2.7 10^3/uL (1.5-6.6); NEUTROPHILS % (AUTO) 58.2 %; PLT - PLATELET COUNT 285 10^3/uL (130-450); RED BLOOD COUNT 4.88 10^6/uL (4.70-6.10); RED CELL DISTRIBUTION WIDTH 13.8 % (12.0-15.0); WHITE BLOOD COUNT 4.7 x10^3/uL (4.8-10.8)
[2019-01-08 08:31] LABS: VBG PCO2 32.1 mmHg (41-51); VBG PH 7.472 (7.31-7.41); VBG PO2 29.2 mmHg (25-47)
[2019-01-08 08:42] LABS: ALBUMIN 3.8 g/dL (3.2-5.5); ALBUMIN/GLOBULIN RATIO 0.9 (1.0-2.2); ALKALINE PHOSPHATASE 93 IU/L (42-121); ALT ALANINE AMINOTRANSFERASE 11 IU/L (10-60); AST ASPARTATE AMINOTRANSFERASE 17 IU/L (10-42); BILIRUBIN,TOTAL 0.6 mg/dL (0.2-1.0); BUN - BLOOD UREA NITROGEN 18 mg/dL (6-20); CALCIUM 9.4 mg/dL (8.5-10.3); CARBON DIOXIDE - CO2 24 mmol/L (21-32); CHLORIDE 95 mmol/L (101-111); CREATININE 0.6 mg/dL (0.6-1.2); GFR - MDRD 172 (>89); GLUCOSE 343 mg/dL (70-100); LIPASE 25 U/L (22-51); SODIUM 133 mmol/L (135-145); TOTAL PROTEIN 7.9 g/dL (6.7-8.2)
[2019-01-08 08:47] LABS: KETONES, SERUM (ACETEST) SMALL (NEGATIVE)
[2019-01-08] MEDS ORDERED: POTASSIUM CHLOR 10 MEQ/100 ML 10 MEQ/100 ML BAG IV ONE (09:18)
[2019-01-08 12:12] LABS: MUDS CUTOFF CONCENTRATIONS CUTOFF CONC BELOW:
[2019-01-08 12:15] LABS: BILIRUBIN,URINE NEGATIVE (NEGATIVE); GLUCOSE, URINE (UA) >=1000 mg/dL (NEGATIVE); KETONES,URINE (UA) 40 mg/dL (NEGATIVE); LEUKOCYTE ESTERASE, URINE NEGATIVE (NEGATIVE); NITRITE,URINE NEGATIVE (NEGATIVE); OCCULT BLOOD,URINE NEGATIVE (NEGATIVE); PH,URINE 6.5 PH (5.0-7.5); PROTEIN,URINE NEGATIVE (NEGATIVE); UROBILINOGEN,URINE 0.2 (NORMAL) E.U./dL (NORMAL)
[2019-01-08 12:29] LABS: BENZODIAZEPINES SCREEN, URINE NEGATIVE (NEGATIVE); CLARITY,URINE CLEAR (CLEAR); METHADONE SCREEN, URINE NEGATIVE (NEGATIVE); METHAMPHETAMINES SCREEN, URINE NEGATIVE (NEGATIVE); OXYCODONE SCREEN, URINE NEGATIVE (NEGATIVE); PROPOXYPHENE SCREEN, URINE NEGATIVE (NEGATIVE); TRICYCLIC ANTIDEPRESSANT,URINE NEGATIVE (NEGATIVE)
[2019-01-08 12:30] LABS: AMPHETAMINE SCREEN,URINE POSITIVE (NEGATIVE); COCAINE SCREEN URINE POSITIVE (NEGATIVE); OPIATE SCREEN, URINE POSITIVE (NEGATIVE)
[2019-01-08] MEDS ORDERED: TEMAZEPAM 15 MG CAPSULE PO PRN (13:47)
[2019-01-08] MEDS ORDERED: DICYCLOMINE 10 MG CAPSULE PO PRN (15:18)
[2019-01-08] MEDS ORDERED: GABAPENTIN 300 MG CAPSULE PO PRN ×2 (15:18→16:27)
[2019-01-08] MEDS ORDERED: diphenhydrAMINE INJ 50 MG/ML VIAL IM PRN (16:24)
[2019-01-08] MEDS ORDERED: LIDOCAINE 2% URO-JET 5 ML SYRINGE UR PRN (16:26)
[2019-01-08] MEDS: LACTATED RINGERS 1,000 ML IV SCH ×2 (16:29→23:41)
--- NOTE | 2019-01-08 16:37 | HISTORY & PHYSICAL EXAMINATION ---
Chief Complaint - Chief Complaint Chief Complaint: abdominal pain GI Bleed Admit Template - Admitted From Admitted from: ED - History Obtained From Records Reviewed: RN notes reviewed, Old records reviewed History obtained from: Patient Exam limitations: Clinical condition - History of Present Illness Severity at the worst: reports: Severe Bleeding quality: reports: Black, tarry stool, Coffee-ground emesis Context-bleeding started w/: reports: Spontaneous, Unknown Timing: reports: Abrupt onset Duration: reports: Hours: (Started early this morning just after 0300) Improved with: reports: Nothing Worsened by: reports: Eating, Movement, Palpation Associated symptoms: reports: Nausea, Vomiting, Feeling faint / dizzy, General Weakness HPI Comment/Other: Thomas Kearney is an ill appearing 18-year male who is well known to this hospital and has a past medical history of poorly controlled diabetes mellitus type 1, poor social support, protein calorie malnutrition, polysubstance abuse, right eye cellulitis, insomnia, diabetic peripheral neuropathy, gastroparesis, neurogenic bladder, urinary retention, medical non-compliance, passive suicidal ideation, major depressive disorder, GERD, sepsis requiring IV therapy, and c hronic abdominal pain. The patient was brought in via EMS for his usual nausea, vomiting, and abdominal pain. He states that this acutely started around 0300 AM just after consuming chicken and rice. He states that he has had dark, tarry stools for the past several days, but does not think that the consistency has changed. While still in the ED he was witnessed wretching into an emesis bag, which was occult positive. Labs show anemia with an H/H of 13.6/41.2, normal low WBC count at 4.7, sodium of 133, potassium of 3.2, chloride of 95, anion gap of 14, creatinine of 0.6, glucose of 343, bili of 0.6, normal troponin of 0.04, VBG with a pH of 7.47, and CO2 32.1, lactic acid of 2.5. Urine tox screen was positive for opiates, amphetamines, and cocaine. Vital signs; temp of 36.7, pulse 128, respirations 18, blood pressure of 123/96, and 100% oxygen on room air. On exam, he understands that our Hospitalist team is not able to prescribed narcotics or benzodiazepines, but requests IV benadryl. PMH/PSH - Past Medical History Cardiovascular: positive: Peripheral Vascular Disease Respiratory: positive: None Neuro: positive: Peripheral neuropathy (diabetic), Other (insomnia) Endocrine/Autoimmune: positive: Type 1 diabetes GI: positive: GERD, Chronic diarrhea, Other (gastroparesis) WORM PICKER: positive: None : positive: Retention, Renal insuffiency HEENT: positive: Other (right eye cellulitis- 11/29/18) Psych: positive: Depression, Anxiety Musculoskeletal: positive: None Derm: positive: None MRSA Hx?: Yes Other Past Medical History: Medical non-compliance, passive suicidal ideations, major depressive disorder Social & Family Hx - Living Situation Living Arrangement: At home Living Situation: With family (lives with aunt) - Social History Does the pt smoke?: No Smoking Status: Never smoker Does the pt drink ETOH?: Yes Does the pt have substance abuse?: Yes Substance Use and Type: Marijuana, Meth, Cocaine/Crack, Prescription Pills - POLST Patient has POLST: No POLST Status: Full Code - Family History Family History: Mother: Alive and Well Meds/Allgy - Home Medications Home Medications: Ambulatory Orders Medication Instructions Recorded Confirmed Dicyclomine [Bentyl] 20 mg PO DAILY PRN 11/28/18 01/08/19 Fluoxetine HCl 40 mg PO DAILY PRN 11/28/18 01/08/19 Gabapentin 900 mg PO QPM PRN 11/28/18 01/08/19 Quetiapine Fumarate [Quetiapine 50 mg PO QPM PRN 11/28/18 01/08/19 Fumarate ER] Insulin Aspart [NovoLOG] 0 - 7 units SUBQ TIDWM PRN 01/08/19 01/08/19 Insulin Glargine [Lantus Solostar] 40 units SUBQ QPM 01/08/19 01/08/19 - Allergies Allergies/Adverse Reactions: Allergies Allergy/AdvReac Type Severity Reaction Status Date / Time No Known Drug Allergies Allergy Verified 01/08/19 08:01 Review of Systems - Constitutional Constitutional: reports: Fatigue, Weakness, Poor appetite, Weight loss - Eyes Eyes: reports: Blurred vision, Vision loss - Ears, Nose & Throat Ears, Nose & Throat: reports: Postnasal drainage, Sore throat - Cardiovascular Cariovascular: reports: Chest pain, Lightheadedness, Exertional dyspnea, Decr. exercise tolerance - Respiratory Respiratory: reports: Cough, Hemoptysis, SOB with exertion - Gastrointestinal Gastrointestinal: reports: Abdominal pain, Diarrhea, Change in bowel habits, Black stools, Nausea, Vomiting, Coffee grounds emesis, Reflux/heartburn, Bloating, Poor appetite - Genitourinary Genitourinary: reports: Other (retention) - Musculoskeletal Musculoskeletal: reports: Stiffness, Muscle weakness - Integumentary Integumentary: reports: Dryness - Neurological Neurological: reports: General weakness, Headache, Memory problems, Pre-existing deficit, Incoordination - Psychiatric Psychiatric: reports: Depression, Anxiety - Hematologic/Lymphatic Hematologic/Lymphatic: reports: Anemia - All Other Systems All Other Systems: reports: Reviewed and negative Prior Level of Functionality: ambulatory, denies recent falls Exam - Vital Signs Reviewed Vital Signs: Yes Vital Signs: Vital Signs x48h Temp Pulse Pulse Resp BP BP Pulse Ox 01/08/19 14:43 36.8 C 134 H 22 132/92 H 100 01/08/19 13:45 130 H 15 140/100 H 99 01/08/19 13:00 128 H 13 127/96 H 99 01/08/19 11:09 37.0 C 127 H 17 117/82 H 100 01/08/19 09:52 123 H 14 116/81 H 92 - Physical Exam General Appearance: positive: Alert, Severe distress, Anxious Eyes Bilateral: positive: PERRL ENT: positive: Pharyngeal erythema, Dry mucous membranes Neck: positive: No JVD, Stiff neck Respiratory: positive: Chest non-tender, No respiratory distress, Other (diminished) Cardiovascular: positive: Regular rate & rhythm, No gallop, Tachycardia Peripheral Pulses: positive: 2+ Abdomen: positive: Tenderness, Guarding, Abnml bowel sounds Back: positive: Nml inspection Skin: positive: No rash, Warm, Dry, Diaphoresis, Pallor Extremities: positive: No pedal edema, Joint swelling Neurologic/Psychiatric: positive: Oriented x3, CN's nml (2-12), Motor nml, Sensation nml, Weakness, Depressed mood/affect Reflexes: Bicep (R): 3+, Bicep (L): 3+, Ankle (R): 2+, Ankle (L): 2+ Results - Lab Results Lab results reviewed: Yes Fish Bones: 01/09/19 06:02 01/09/19 06:02 Other Lab Results: Lab Results x24hrs 04/14/19 04/14/19 04/14/19 Range/Units 11:56 08:12 08:12 WBC (4.8-10.8) x10^3/uL RBC (4.70-6.10) 10^6/uL Hgb (14.0-18.0) g/dL Hct (42.0-52.0) % MCV (80.0-94.0) fL MCH (27.0-31.0) pg MCHC (32.0-36.0) g/dL RDW (12.0-15.0) % Plt Count (130-450) 10^3/uL MPV (7.4-11.4) fL Neut # (Auto) (1.5-6.6) 10^3/uL Lymph # (Auto) (1.5-3.5) 10^3/uL [place] # (Auto) (0.0-1.0) 10^3/uL Eos # (Auto) (0.0-0.7) 10^3/uL Baso # (Auto) (0.0-0.1) 10^3/uL Absolute Nucleated RBC x10^3/uL Nucleated RBC % /100WBC VBG pH 7.472 H (7.31-7.41) VBG pCO2 32.1 L (41-51) mmHg VBG pO2 29.2 (25-47) mmHg VBG HCO3 23.6 (23-28) mmol/L VBG Total CO2 25.0 (24-29) mmol/L VBG O2 Saturation 64.3 (60-80) % VBG Base Excess 0.0 (-2 - +2) mmol/L Sodium (135-145) mmol/L Potassium (3.5-5.0) mmol/L Chloride (101-111) mmol/L Carbon Dioxide (21-32) mmol/L Anion Gap (6-13) BUN (6-20) mg/dL Creatinine (0.6-1.2) mg/dL Estimated GFR (MDRD) (>89) Glucose (70-100) mg/dL Lactic Acid 2.5 H (0.5-2.2) mmol/L Calcium (8.5-10.3) mg/dL Total Bilirubin (0.2-1.0) mg/dL AST (10-42) IU/L ALT (10-60) IU/L Alkaline Phosphatase (42-121) IU/L Troponin I (<0.49) ng/mL Total Protein (6.7-8.2) g/dL Albumin (3.2-5.5) g/dL Globulin (2.1-4.2) g/dL Albumin/Globulin Ratio (1.0-2.2) Lipase (22-51) U/L Urine Color YELLOW Urine Clarity CLEAR (CLEAR) Urine pH 6.5 (5.0-7.5) PH Ur Specific [place] <=1.005 (1.002-1.030) Urine Protein NEGATIVE (NEGATIVE) mg/dL Urine Glucose (UA) >=1000 H (NEGATIVE) mg/dL Urine Ketones 40 H (NEGATIVE) mg/dL Urine Occult Blood NEGATIVE (NEGATIVE) Urine Nitrite NEGATIVE (NEGATIVE) Urine Bilirubin NEGATIVE (NEGATIVE) Urine Urobilinogen 0.2 (NORMAL) (NORMAL) E.U./dL Ur Leukocyte Esterase NEGATIVE (NEGATIVE) Ur Microscopic Review NOT INDICATED Urine Culture Comments NOT INDICATED Urine Opiates Screen POSITIVE H (NEGATIVE) Ur Oxycodone Screen NEGATIVE (NEGATIVE) Urine Methadone Screen NEGATIVE (NEGATIVE) Ur Propoxyphene Screen NEGATIVE (NEGATIVE) Ur Barbiturates Screen NEGATIVE (NEGATIVE) Ur Tricyclics Screen NEGATIVE (NEGATIVE) Ur Phencyclidine Scrn NEGATIVE (NEGATIVE) Ur Amphetamine Screen POSITIVE H (NEGATIVE) U Methamphetamines Scrn NEGATIVE (NEGATIVE) U Benzodiazepines Scrn NEGATIVE (NEGATIVE) Urine Cocaine Screen POSITIVE H (NEGATIVE) U Cannabinoids Screen NEGATIVE (NEGATIVE) Serum Ketones (NEGATIVE) 01/08/19 01/08/19 01/08/19 Range/Units 08:12 08:12 08:12 WBC 4.7 L (4.8-10.8) x10^3/uL RBC 4.88 (4.70-6.10) 10^6/uL Hgb 13.6 L (14.0-18.0) g/dL Hct 41.2 L (42.0-52.0) % MCV 84.5 (80.0-94.0) fL MCH 27.9 (27.0-31.0) pg MCHC 33.0 (32.0-36.0) g/dL RDW 13.8 (12.0-15.0) % Plt Count 285 (130-450) 10^3/uL MPV 8.0 (7.4-11.4) fL Neut # (Auto) 2.7 (1.5-6.6) 10^3/uL Lymph # (Auto) 1.6 (1.5-3.5) 10^3/uL [place] # (Auto) 0.2 (0.0-1.0) 10^3/uL Eos # (Auto) 0.1 (0.0-0.7) 10^3/uL Baso # (Auto) 0.0 (0.0-0.1) 10^3/uL Absolute Nucleated RBC 0.00 x10^3/uL Nucleated RBC % 0.1 /100WBC VBG pH (7.31-7.41) VBG pCO2 (41-51) mmHg VBG pO2 (25-47) mmHg VBG HCO3 (23-28) mmol/L VBG Total CO2 (24-29) mmol/L VBG O2 Saturation (60-80) % VBG Base Excess (-2 - +2) mmol/L Sodium 133 L (135-145) mmol/L Potassium 3.2 L (3.5-5.0) mmol/L Chloride 95 L (101-111) mmol/L Carbon Dioxide 24 (21-32) mmol/L Anion Gap 14.0 H (6-13) BUN 18 (6-20) mg/dL Creatinine 0.6 (0.6-1.2) mg/dL Estimated GFR (MDRD) 172 (>89) Glucose 343 H (70-100) mg/dL Lactic Acid (0.5-2.2) mmol/L Calcium 9.4 (8.5-10.3) mg/dL Total Bilirubin 0.6 (0.2-1.0) mg/dL AST 17 (10-42) IU/L ALT 11 (10-60) IU/L Alkaline Phosphatase 93 (42-121) IU/L Troponin I < 0.04 (<0.49) ng/mL Total Protein 7.9 (6.7-8.2) g/dL Albumin 3.8 (3.2-5.5) g/dL Globulin 4.1 (2.1-4.2) g/dL Albumin/Globulin Ratio 0.9 L (1.0-2.2) Lipase 25 (22-51) U/L Urine Color Urine Clarity (CLEAR) Urine pH (5.0-7.5) PH Ur Specific [place] (1.002-1.030) Urine Protein (NEGATIVE) mg/dL Urine Glucose (UA) (NEGATIVE) mg/dL Urine Ketones (NEGATIVE) mg/dL Urine Occult Blood (NEGATIVE) Urine Nitrite (NEGATIVE) Urine Bilirubin (NEGATIVE) Urine Urobilinogen (NORMAL) E.U./dL Ur Leukocyte Esterase (NEGATIVE) Ur Microscopic Review Urine Culture Comments Urine Opiates Screen (NEGATIVE) Ur Oxycodone Screen (NEGATIVE) Urine Methadone Screen (NEGATIVE) Ur Propoxyphene Screen (NEGATIVE) Ur Barbiturates Screen (NEGATIVE) Ur Tricyclics Screen (NEGATIVE) Ur Phencyclidine Scrn (NEGATIVE) Ur Amphetamine Screen (NEGATIVE) U Methamphetamines Scrn (NEGATIVE) U Benzodiazepines Scrn (NEGATIVE) Urine Cocaine Screen (NEGATIVE) U Cannabinoids Screen (NEGATIVE) Serum Ketones SMALL H (NEGATIVE) Sepsis Event Note (H) - Evaluation Current Stage of Sepsis: Ruled out Impression/Plan - Problem List Problem List: GI bleeding Intractable nausea and vomiting Normocytic anemia/ acute blood loss anemia Abdominal pain Uncontrolled DM type 1 Medical noncompliance Polysubstance abuse Tachycardia MRSA sepsis Major depressive disorder Hypokalemia Hyperglycemia Lactic acidosis Diabetic gastroparesis PLAN: - Admit to inpatient - Serial H/H - Control symptoms - CL diet - Consider surgical consult if bloody vomiting occurs or H/H becomes low requiring transfusions - Social work consult with a new finding of + cocaine, + amphetamines - Diabetes education - Monitor BS, AC/HS and SSI - IV fluids - Electrolyte replacement - Telemetry - Routine labs in the AM - Contact precuations with his recent history of + MRSA - NO narcotics or benzos from Hospitalist team- agreement in place - continue other home meds Core Measures - Anticipated LOS I expect patient to be DC'd or transferred within 96 hours.: Yes - DVT/VTE - Prophylaxis VTE/DVT Device ordered at admit?: Yes VTE/DVT Prophylaxis med ordered at admit?: Yes - Stroke - Rehab Assessment Rehab services assessment to be ordered?: No Not Ordered - Medical Reason: Contraindicated - AMI - Statin at Admit Aspirin Prescribed on Admit: Yes
[2019-01-08] MEDS: ONDANSETRON 4 MG/2 ML VIAL IVP PRN (17:16)
[2019-01-08] MEDS: INSULIN ASPART 300 UNIT/3 ML PEN SUBQ SCH ×2 (17:16→22:10)
[2019-01-08] MEDS: SODIUM CHLORIDE FLUSH 0.9% 10 ML SYRINGE IVP SCH (17:17)
[2019-01-08] MEDS ORDERED: INSULIN GLARGINE 300 UNIT/3 ML PEN SUBQ SCH ×2 (21:00)
[2019-01-08] MEDS ORDERED: QUEtiapine 25 MG TABLET PO PRN (21:00)
[2019-01-08] MEDS ORDERED: ACETAMINOPHEN 325 MG TABLET PO PRN (21:37)
[2019-01-08] MEDS ORDERED: METOCLOPRAMIDE 10 MG/2 ML VIAL IVP SCH (22:00)
[2019-01-08] MEDS: PANTOPRAZOLE 40 MG VIAL IVP SCH (22:10)
[2019-01-08] MEDS: ACETAMINOPHEN 1,000 MG/100 ML 100 ML IV PRN (22:12)
[2019-01-08] MEDS: diphenhydrAMINE INJ 50 MG/ML VIAL IVP PRN (22:59)
[2019-01-08 23:07] LABS: VBG PCO2 32.5 mmHg (41-51); VBG PH 7.429 (7.31-7.41); VBG PO2 72.6 mmHg (25-47)
[2019-01-08 23:08] LABS: VBG BASE EXCESS -2.4 mmol/L (-2 - +2)
[2019-01-08 23:09] LABS: HGB - HEMOGLOBIN 13.4 g/dL (14.0-18.0)
[2019-01-08 23:16] LABS: CALCIUM 9.1 mg/dL (8.5-10.3); CREATININE 0.6 mg/dL (0.6-1.2)
[2019-01-09] MEDS: ONDANSETRON 4 MG/2 ML VIAL IVP PRN (00:16)
[2019-01-09] MEDS: SODIUM CHLORIDE FLUSH 0.9% 10 ML SYRINGE IVP SCH ×4 (02:11→23:29)
[2019-01-09] MEDS ORDERED: METOCLOPRAMIDE 10 MG/2 ML VIAL IVP SCH (03:00)
[2019-01-09] MEDS: diphenhydrAMINE INJ 50 MG/ML VIAL IVP PRN ×3 (05:07→17:20)
[2019-01-09] MEDS: LACTATED RINGERS 1,000 ML IV SCH (06:06)
[2019-01-09 06:13] LABS: BASOPHILS % (AUTO) 0.4 %; HGB - HEMOGLOBIN 12.1 g/dL (14.0-18.0); LYMPHOCYTES # (AUTO) 1.5 10^3/uL (1.5-3.5); LYMPHOCYTES % (AUTO) 24.9 %; MEAN CORPUSCULAR HEMOGLOBIN 28.5 pg (27.0-31.0); MEAN CORPUSCULAR HGB CONC 33.1 g/dL (32.0-36.0); MEAN CORPUSCULAR VOLUME 85.9 fL (80.0-94.0); MEAN PLATELET VOLUME 7.8 fL (7.4-11.4); MONOCYTES # (AUTO) 0.4 10^3/uL (0.0-1.0); NEUTROPHILS # (AUTO) 4.1 10^3/uL (1.5-6.6); NEUTROPHILS % (AUTO) 68.7 %; PLT - PLATELET COUNT 241 10^3/uL (130-450); RED BLOOD COUNT 4.25 10^6/uL (4.70-6.10); RED CELL DISTRIBUTION WIDTH 14.2 % (12.0-15.0); WHITE BLOOD COUNT 5.9 x10^3/uL (4.8-10.8)
[2019-01-09 06:29] LABS: ALBUMIN 3.2 g/dL (3.2-5.5); BILIRUBIN,TOTAL 0.7 mg/dL (0.2-1.0); CREATININE 0.5 mg/dL (0.6-1.2); MAGNESIUM 1.9 mg/dL (1.7-2.8); PHOSPHORUS 2.8 mg/dL (2.5-4.6); TOTAL PROTEIN 6.3 g/dL (6.7-8.2)
[2019-01-09 06:35] LABS: HB2 TOTAL 12.4 g/dL; HEMOGLOBIN A1C 1.46 g/dL; HEMOGLOBIN A1C % 12.9 % (4.6-6.2)
[2019-01-09] MEDS: INSULIN ASPART 300 UNIT/3 ML PEN SUBQ SCH ×4 (08:21→20:31)
[2019-01-09] MEDS: PANTOPRAZOLE 40 MG VIAL IVP SCH ×2 (08:28→20:29)
[2019-01-09] MEDS: METOCLOPRAMIDE 10 MG/2 ML VIAL IVP SCH ×3 (08:28→20:29)
[2019-01-09] MEDS: POLYETHYLENE GLYCOL 3350 17 GM PACKET PO SCH (08:29)
[2019-01-09] MEDS ORDERED: FLUoxetine 10 MG CAPSULE PO PRN (09:00)
[2019-01-09] MEDS: D5.45NS W/20 MEQ KCL 1,000 ML IV SCH ×2 (11:47→20:32)
[2019-01-09] MEDS: ACETAMINOPHEN 1,000 MG/100 ML 100 ML IV PRN (14:03)
[2019-01-09] MEDS ORDERED: INSULIN GLARGINE 300 UNIT/3 ML PEN SUBQ SCH (21:00)
--- NOTE | 2019-01-09 21:25 | PROVIDER PROGRESS NOTE ---
Subjective - Prog Note Date Prog Note Date: 01/09/19 Prog Note Time: 08:00 - Subjective Pt reports feeling: Improved Subjective: Thomas continues to complain of abdominal pain, nausea, and a poor appetite. He no longer is having emesis. He denies chest pain, diarrhea, a rash, a new cough, a productive cough, or increased confusion. Current Medications - Current Medications Current Medications: Active Medications: Dicyclomine HCl (Bentyl) 20 mg PO DAILY PRN Diphenhydramine HCl (Benadryl Inj) 25 mg IVP Q6H PRN Fluoxetine HCl (Prozac) 40 mg PO DAILY PRN Gabapentin (Neurontin) 300 mg PO Q4H PRN Acetaminophen (Ofirmev) 100 mls @ 400 mls/hr IV Q8HR PRN Potassium Chloride/Dextrose/Sod Cl (D5.45ns W/20 Meq Kcl) 1,000 mls @ 125 mls/hr IV .Q8H SHEILA Insulin Aspart (Novolog) 1 - 5 unit SUBQ 0800,1200,1700,2100 SHEILA; Protocol Insulin Glargine (Lantus Solostar) 18 unit SUBQ QPM SHEILA Lidocaine HCl (Xylocaine Uro-Jet 2%) 2.5 ml UR Q6H PRN Metoclopramide HCl (Reglan Inj) 10 mg IVP Q6H SHEILA Ondansetron HCl (Zofran Inj) 4 mg IVP Q4HR PRN Pantoprazole Sodium (Protonix) 40 mg IVP BID SHEILA Polyethylene Glycol (Miralax) 17 gm PO DAILY SHEILA Quetiapine Fumarate (Seroquel) 50 mg PO QPM PRN Temazepam (Restoril) 15 mg PO QPM PRN HOME meds: Dicyclomine [Bentyl] 20 mg PO DAILY PRN 11/28/18 Fluoxetine HCl 40 mg PO DAILY PRN 11/28/18 Gabapentin 900 mg PO QPM PRN 11/28/18 Quetiapine Fumarate [Quetiapine Fumarate ER] 50 mg PO QPM PRN 11/28/18 Insulin Aspart [NovoLOG] 0 - 7 units SUBQ TIDWM PRN 01/08/19 Insulin Glargine [Lantus Solostar] 40 units SUBQ QPM 01/08/19 Objective - Vital Signs/Intake & Output Reviewed Vital Signs: Yes Vital Signs: Vital Signs x48h Temp Pulse Pulse Resp BP Pulse Ox 01/09/19 19:57 36.8 C 104 H 16 133/83 H 99 01/09/19 15:55 36.7 C 113 H 16 136/86 H 98 01/09/19 15:08 36.6 C 94 16 99 Intake & Output: Intake & Output 01/06/19 01/07/19 01/08/19 01/09/19 23:59 23:59 23:59 23:59 Intake Total 2710.6 3485.0 Output Total 576 2500 Balance 2134.6 985.0 - Objective General Appearance: positive: No acute distress, Lethargic Eyes Bilateral: positive: PERRL ENT: positive: Pharynx nml, No signs of dehydration Neck: positive: Thyroid nml, No JVD, Trachea midline Respiratory: positive: Chest non-tender, No respiratory distress, Breath sounds nml Cardiovascular: positive: Regular rate & rhythm, No gallop, Systolic murmur Peripheral Pulses: 1+ Radial (R), 1+ Radial (L) Abdomen: positive: Tenderness, Guarding, Abnml bowel sounds Back: positive: Nml inspection Skin: positive: No rash, Warm, Dry, Pallor Extremities: positive: Full ROM, Nml appearance, No pedal edema Neurologic/Psychiatric: positive: Oriented x3, CN's nml (2-12), Motor nml, Sensation nml, Weakness, Depressed mood/affect Reflexes: Bicep (R): 2+, Bicep (L): 2+ - Lab Results Fish Bones: 01/09/19 06:02 01/09/19 06:02 Other Labs: Lab Results x24hrs 01/09/19 01/09/19 01/09/19 Range/Units 06:02 06:02 06:02 WBC 5.9 (4.8-10.8) x10^3/uL RBC 4.25 L (4.70-6.10) 10^6/uL Hgb 12.1 L (14.0-18.0) g/dL Hct 36.5 L (42.0-52.0) % MCV 85.9 (80.0-94.0) fL MCH 28.5 (27.0-31.0) pg MCHC 33.1 (32.0-36.0) g/dL RDW 14.2 (12.0-15.0) % Plt Count 241 (130-450) 10^3/uL MPV 7.8 (7.4-11.4) fL Neut # (Auto) 4.1 (1.5-6.6) 10^3/uL Lymph # (Auto) 1.5 (1.5-3.5) 10^3/uL [place] # (Auto) 0.4 (0.0-1.0) 10^3/uL Eos # (Auto) 0.0 (0.0-0.7) 10^3/uL Baso # (Auto) 0.0 (0.0-0.1) 10^3/uL Absolute Nucleated RBC 0.00 x10^3/uL Nucleated RBC % 0.0 /100WBC VBG pH (7.31-7.41) VBG pCO2 (41-51) mmHg VBG pO2 (25-47) mmHg VBG HCO3 (23-28) mmol/L VBG Total CO2 (24-29) mmol/L VBG O2 Saturation (60-80) % VBG Base Excess (-2 - +2) mmol/L Sodium 140 (135-145) mmol/L Potassium 3.4 L (3.5-5.0) mmol/L Chloride 108 (101-111) mmol/L Carbon Dioxide 23 (21-32) mmol/L Anion Gap 9.0 (6-13) BUN 17 (6-20) mg/dL Creatinine 0.5 L (0.6-1.2) mg/dL Estimated GFR (MDRD) 212 (>89) Glucose 117 H (70-100) mg/dL Glycated Hemoglobin (4.6-6.2) % Estim Average Glucose (70-100) Lactic Acid 0.7 (0.5-2.2) mmol/L Calcium 9.0 (8.5-10.3) mg/dL Phosphorus 2.8 (2.5-4.6) mg/dL Magnesium 1.9 (1.7-2.8) mg/dL Total Bilirubin 0.7 (0.2-1.0) mg/dL AST 11 (10-42) IU/L ALT 11 (10-60) IU/L Alkaline Phosphatase 70 (42-121) IU/L Total Protein 6.3 L (6.7-8.2) g/dL Albumin 3.2 (3.2-5.5) g/dL Globulin 3.1 (2.1-4.2) g/dL Albumin/Globulin Ratio 1.0 (1.0-2.2) 01/09/19 01/08/19 01/08/19 Range/Units 06:02 23:00 23:00 WBC (4.8-10.8) x10^3/uL RBC (4.70-6.10) 10^6/uL Hgb (14.0-18.0) g/dL Hct (42.0-52.0) % MCV (80.0-94.0) fL MCH (27.0-31.0) pg MCHC (32.0-36.0) g/dL RDW (12.0-15.0) % Plt Count (130-450) 10^3/uL MPV (7.4-11.4) fL Neut # (Auto) (1.5-6.6) 10^3/uL Lymph # (Auto) (1.5-3.5) 10^3/uL [place] # (Auto) (0.0-1.0) 10^3/uL Eos # (Auto) (0.0-0.7) 10^3/uL Baso # (Auto) (0.0-0.1) 10^3/uL Absolute Nucleated RBC x10^3/uL Nucleated RBC % /100WBC VBG pH 7.429 H (7.31-7.41) VBG pCO2 32.5 L (41-51) mmHg VBG pO2 72.6 H (25-47) mmHg VBG HCO3 21.0 L (23-28) mmol/L VBG Total CO2 22.0 L (24-29) mmol/L VBG O2 Saturation 95.3 H (60-80) % VBG Base Excess -2.4 L (-2 - +2) mmol/L Sodium 140 (135-145) mmol/L Potassium 4.0 (3.5-5.0) mmol/L Chloride 108 (101-111) mmol/L Carbon Dioxide 20 L (21-32) mmol/L Anion Gap 12.0 (6-13) BUN 18 (6-20) mg/dL Creatinine 0.6 (0.6-1.2) mg/dL Estimated GFR (MDRD) 172 (>89) Glucose 212 H (70-100) mg/dL Glycated Hemoglobin 12.9 H (4.6-6.2) % Estim Average Glucose 324 H (70-100) Lactic Acid (0.5-2.2) mmol/L Calcium 9.1 (8.5-10.3) mg/dL Phosphorus (2.5-4.6) mg/dL Magnesium (1.7-2.8) mg/dL Total Bilirubin (0.2-1.0) mg/dL AST (10-42) IU/L ALT (10-60) IU/L Alkaline Phosphatase (42-121) IU/L Total Protein (6.7-8.2) g/dL Albumin (3.2-5.5) g/dL Globulin (2.1-4.2) g/dL Albumin/Globulin Ratio (1.0-2.2) 01/08/19 Range/Units 23:00 WBC (4.8-10.8) x10^3/uL RBC (4.70-6.10) 10^6/uL Hgb 13.4 L (14.0-18.0) g/dL Hct 40.4 L (42.0-52.0) % MCV (80.0-94.0) fL MCH (27.0-31.0) pg MCHC (32.0-36.0) g/dL RDW (12.0-15.0) % Plt Count (130-450) 10^3/uL MPV (7.4-11.4) fL Neut # (Auto) (1.5-6.6) 10^3/uL Lymph # (Auto) (1.5-3.5) 10^3/uL [place] # (Auto) (0.0-1.0) 10^3/uL Eos # (Auto) (0.0-0.7) 10^3/uL Baso # (Auto) (0.0-0.1) 10^3/uL Absolute Nucleated RBC x10^3/uL Nucleated RBC % /100WBC VBG pH (7.31-7.41) VBG pCO2 (41-51) mmHg VBG pO2 (25-47) mmHg VBG HCO3 (23-28) mmol/L VBG Total CO2 (24-29) mmol/L VBG O2 Saturation (60-80) % VBG Base Excess (-2 - +2) mmol/L Sodium (135-145) mmol/L Potassium (3.5-5.0) mmol/L Chloride (101-111) mmol/L Carbon Dioxide (21-32) mmol/L Anion Gap (6-13) BUN (6-20) mg/dL Creatinine (0.6-1.2) mg/dL Estimated GFR (MDRD) (>89) Glucose (70-100) mg/dL Glycated Hemoglobin (4.6-6.2) % Estim Average Glucose (70-100) Lactic Acid (0.5-2.2) mmol/L Calcium (8.5-10.3) mg/dL Phosphorus (2.5-4.6) mg/dL Magnesium (1.7-2.8) mg/dL Total Bilirubin (0.2-1.0) mg/dL AST (10-42) IU/L ALT (10-60) IU/L Alkaline Phosphatase (42-121) IU/L Total Protein (6.7-8.2) g/dL Albumin (3.2-5.5) g/dL Globulin (2.1-4.2) g/dL Albumin/Globulin Ratio (1.0-2.2) ABX Reporting Has patient been on IV antibiotics over the past 48 hours?: No Sepsis Event Note (H) - Evaluation Current Stage of Sepsis: Ruled out Assessment/Plan - Problem List (1) GI bleeding Impression: - Upon admission black emesis was noted - Occult + - now resolved - Very slight drop in H/H, now 12.1/36.5 from 13.4/40.4 yesterday - Surgery not consulted since this resolved and patient remains hemodynamically stable Plan: Monitor for recurrence (2) Intractable nausea and vomiting Impression: - Resolved - Ongoing nausea, but Thomas requested food, which is an improvement Plan: Continue to treat symptoms, no use of benzos or narcotics are allowed from Hospitalist team Qualifiers: Vomiting type: cyclical vomiting Qualified Code(s): G43.A1 - Cyclical vomiting, intractable (3) Acute blood loss anemia Impression: - Stable today - Last H/H was 12.1/36.5 - Blood pressure and heart rates stable - No evidence of bleeding today Plan: Routine labs (4) Abdominal pain Impression: - ongoing today - A chronic symptom - also known to have gastroparesis Plan: IV benadryl, scheduled reglan Q6H Qualifiers: Abdominal location: epigastric Qualified Code(s): R10.13 - Epigastric pain (5) Diabetes mellitus, insulin-dependent (IDDM or type I) Impression: - A1C elevated at 12.9%, average blood sugar of 324 - hypoglycemia, 65 today -IV solution changed to D5 with 20mEq of K Plan: Continue SSI, Lantus and AC/HS, await nutritional consult for education Qualifiers: Diabetes mellitus complication status: with hyperglycemia Qualified Code(s): E10.65 - Type 1 diabetes mellitus with hyperglycemia (6) Non compliance with medical treatment Impression: - Multiple hospital admissions the last being last month and sent home on IV infusions - Evidenced by horrible hemoglobin A1C of 12.9% - Depression/depressive disorder plays a large role in this - No employment at this time, lives with aunt who the patient claims is on "meth" - Denies drug use, even though on tox screen Plan: Social work is following (7) Polysubstance abuse Impression: - Known past marijuana use - Now + with cocaine and amphetamines - These are new for him Plan: Continue to treat acute illness, suggest outpatient follow up (8) MRSA (methicillin resistant Staphylococcus aureus) septicemia Impression: - positive blood cultures on last hospital stay - Status post home infusion with unknown compliance Plan: Contact precautions
[2019-01-10] MEDS: SODIUM CHLORIDE FLUSH 0.9% 10 ML SYRINGE IVP SCH ×4 (00:30→06:39)
[2019-01-10] MEDS: diphenhydrAMINE INJ 50 MG/ML VIAL IVP PRN ×2 (00:30→18:48)
[2019-01-10] MEDS: METOCLOPRAMIDE 10 MG/2 ML VIAL IVP SCH ×4 (03:06→22:21)
[2019-01-10] MEDS: ACETAMINOPHEN 1,000 MG/100 ML 100 ML IV PRN (04:32)
[2019-01-10] MEDS: D5.45NS W/20 MEQ KCL 1,000 ML IV SCH (04:32)
[2019-01-10 05:56] LABS: BASOPHILS % (AUTO) 0.3 %; EOSINOPHILS % (AUTO) 0.3 %; HGB - HEMOGLOBIN 12.2 g/dL (14.0-18.0); LYMPHOCYTES # (AUTO) 1.6 10^3/uL (1.5-3.5); LYMPHOCYTES % (AUTO) 23.9 %; MEAN CORPUSCULAR HGB CONC 33.1 g/dL (32.0-36.0); MEAN CORPUSCULAR VOLUME 84.7 fL (80.0-94.0); MEAN PLATELET VOLUME 7.9 fL (7.4-11.4); MONOCYTES # (AUTO) 0.5 10^3/uL (0.0-1.0); MONOCYTES % (AUTO) 7.5 %; NEUTROPHILS # (AUTO) 4.5 10^3/uL (1.5-6.6); PLT - PLATELET COUNT 207 10^3/uL (130-450); RED BLOOD COUNT 4.34 10^6/uL (4.70-6.10); RED CELL DISTRIBUTION WIDTH 13.9 % (12.0-15.0); WHITE BLOOD COUNT 6.6 x10^3/uL (4.8-10.8)
[2019-01-10 05:59] LABS: ALBUMIN 3.1 g/dL (3.2-5.5); ALBUMIN/GLOBULIN RATIO 1.1 (1.0-2.2); BILIRUBIN,TOTAL 0.8 mg/dL (0.2-1.0); CALCIUM 8.9 mg/dL (8.5-10.3); CREATININE 0.5 mg/dL (0.6-1.2)
[2019-01-10] MEDS: ONDANSETRON 4 MG/2 ML VIAL IVP PRN ×2 (06:38→11:15)
[2019-01-10] MEDS: NS W/20 MEQ KCL 1,000 ML IV SCH ×2 (07:54→16:02)
[2019-01-10] MEDS: INSULIN ASPART 300 UNIT/3 ML PEN SUBQ SCH ×4 (07:55→21:47)
[2019-01-10] MEDS: PANTOPRAZOLE 40 MG VIAL IVP SCH ×2 (08:07→22:20)
[2019-01-10] MEDS: POLYETHYLENE GLYCOL 3350 17 GM PACKET PO SCH (08:07)
[2019-01-10] MEDS ORDERED: INSULIN ASPART 300 UNIT/3 ML PEN SUBQ ONE (08:20)
[2019-01-10] MEDS ORDERED: PROCHLORPERAZINE 10 MG/2 ML VIAL IVP PRN (14:16)
--- NOTE | 2019-01-10 17:43 | PROVIDER PROGRESS NOTE ---
Subjective - Prog Note Date Prog Note Date: 01/10/19 - Subjective Pt reports feeling: No change Subjective: pt complain nausea and vomiting, and abdominal pain. he denies chest pain, fever, chill. Current Medications - Current Medications Current Medications: Active Medications Dicyclomine HCl (Bentyl) 20 mg PO DAILY PRN PRN Reason: Irritable Bowel Syndrome Diphenhydramine HCl (Benadryl Inj) 25 mg IVP Q6H PRN PRN Reason: Allergy Symptoms Last Admin: 01/10/19 00:30 Dose: 25 mg Diphenhydramine HCl (Benadryl) 25 mg PO QPM PRN PRN Reason: Insomnia Fluoxetine HCl (Prozac) 40 mg PO DAILY PRN PRN Reason: DEPRESSION Gabapentin (Neurontin) 300 mg PO Q4H PRN PRN Reason: PAIN Acetaminophen (Ofirmev) 100 mls @ 400 mls/hr IV Q8HR PRN PRN Reason: PAIN Last Infusion: 01/10/19 04:47 Dose: Infused Potassium Chloride/Sodium Chloride (Normal Saline 0.9% W/20 Meq Kcl) 1,000 mls @ 125 mls/hr IV .Q8H [facility] Last Admin: 01/10/19 16:02 Dose: 125 mls/hr Insulin Aspart (Novolog) 1 - 5 unit SUBQ 0800,1200,1700,2100 [facility]; Protocol Last Admin: 01/10/19 17:46 Dose: 1 unit Insulin Glargine (Lantus Solostar) 20 unit SUBQ QPM [facility] Lidocaine HCl (Xylocaine Uro-Jet 2%) 2.5 ml UR Q6H PRN PRN Reason: PAIN Metoclopramide HCl (Reglan Inj) 10 mg IVP Q6H [facility] Last Admin: 01/10/19 15:01 Dose: 10 mg Ondansetron HCl (Zofran Inj) 4 mg IVP Q4HR PRN PRN Reason: Nausea / Vomiting Last Admin: 01/10/19 11:15 Dose: 4 mg Pantoprazole Sodium (Protonix) 40 mg IVP BID [facility] Last Admin: 01/10/19 08:07 Dose: 40 mg Polyethylene Glycol (Miralax) 17 gm PO DAILY [facility] Last Admin: 01/10/19 08:07 Dose: Not Given Prochlorperazine Edisylate (Compazine Inj) 10 mg IVP Q4HR PRN PRN Reason: Nausea / Vomiting Quetiapine Fumarate (Seroquel) 50 mg PO QPM PRN PRN Reason: NEEDED PER PROVIDER ORDERS Sodium Chloride (Normal Saline Flush 0.9%) 10 ml IVP PRN PRN PRN Reason: NEEDED PER PROVIDER ORDERS Sodium Chloride (Normal Saline Flush 0.9%) 10 ml IVP 0100,0900,1700 [facility] Last Admin: 01/10/19 06:39 Dose: 10 ml Temazepam (Restoril) 15 mg PO QPM PRN PRN Reason: Insomnia Dicyclomine [Bentyl] 20 mg PO DAILY PRN 11/28/18 Fluoxetine HCl 40 mg PO DAILY PRN 11/28/18 Gabapentin 900 mg PO QPM PRN 11/28/18 Quetiapine Fumarate [Quetiapine Fumarate ER] 50 mg PO QPM PRN 11/28/18 Insulin Aspart [NovoLOG] 0 - 7 units SUBQ TIDWM PRN 01/08/19 Insulin Glargine [Lantus Solostar] 40 units SUBQ QPM 01/08/19 Objective - Vital Signs/Intake & Output Reviewed Vital Signs: Yes Vital Signs: Vital Signs x48h Temp Pulse Resp BP Pulse Ox 01/10/19 15:44 36.7 C 111 H 16 136/85 H 99 Intake & Output: Intake & Output 01/07/19 01/08/19 01/09/19 01/10/19 23:59 23:59 23:59 23:59 Intake Total 2710.6 3685.0 3042 Output Total 576 4100 3100 Balance 2134.6 -415.0 -58 - Objective General Appearance: positive: No acute distress, Alert. negative: Lethargic Eyes Bilateral: positive: Normal inspection, PERRL, No lid inflammation, Conjunctivae nml ENT: positive: ENT inspection nml, Pharynx nml, No signs of dehydration. negative: Purulent nasal drainage, Pharyngeal erythema, Oral lesions Neck: positive: Nml inspection, Thyroid nml, No JVD, Trachea midline. negative: Thyromegaly, Lymphadenopathy (R), Lymphadenopathy (L), Stiff neck, Swelling/bruising, Tracheal deviation Respiratory: positive: Chest non-tender, No respiratory distress, Breath sounds nml. negative: Wheezes, Rales, Rhonchi Cardiovascular: positive: Regular rate & rhythm, No murmur, No gallop. negative: Irregularly irregular, Extrasystoles, Tachycardia, Bradycardia, JVD present, Systolic murmur, Diastolic murmur Peripheral Pulses: 2+ Radial (R), 2+ Radial (L), 2+ Dorsalis pedis (R), 2+ Dorsalis pedis (L) Abdomen: positive: Non-tender, No organomegaly, Nml bowel sounds, No distention. negative: Tenderness, Guarding, Rebound Back: positive: Nml inspection. negative: CVA tenderness (R), CVA tenderness (L) Skin: positive: Color nml, No rash, Warm, Dry. negative: Cyanosis, Diaphoresis, Pallor Extremities: positive: Non-tender, Full ROM, Nml appearance. negative: Calf tenderness, Joint swelling, Cordell's sign/cords Neurologic/Psychiatric: positive: Oriented x3, Motor nml, Sensation nml, Mood/affect nml. negative: Weakness, Sensory loss, Facial droop, Slurred/abnml speech, Depressed mood/affect - Lab Results Fish Bones: 01/10/19 05:23 01/10/19 05:23 Other Labs: Lab Results x24hrs 01/10/19 01/10/19 01/10/19 Range/Units 16:34 11:08 07:24 WBC (4.8-10.8) x10^3/uL RBC (4.70-6.10) 10^6/uL Hgb (14.0-18.0) g/dL Hct (42.0-52.0) % MCV (80.0-94.0) fL MCH (27.0-31.0) pg MCHC (32.0-36.0) g/dL RDW (12.0-15.0) % Plt Count (130-450) 10^3/uL MPV (7.4-11.4) fL Neut # (Auto) (1.5-6.6) 10^3/uL Lymph # (Auto) (1.5-3.5) 10^3/uL Brooke # (Auto) (0.0-1.0) 10^3/uL Eos # (Auto) (0.0-0.7) 10^3/uL Baso # (Auto) (0.0-0.1) 10^3/uL Absolute Nucleated RBC x10^3/uL Nucleated RBC % /100WBC Sodium (135-145) mmol/L Potassium (3.5-5.0) mmol/L Chloride (101-111) mmol/L Carbon Dioxide (21-32) mmol/L Anion Gap (6-13) BUN (6-20) mg/dL Creatinine (0.6-1.2) mg/dL Estimated GFR (MDRD) (>89) Glucose (70-100) mg/dL POC Whole Bld Glucose 174 H 147 H 341 H (70 - 100) mg/dL Calcium (8.5-10.3) mg/dL Total Bilirubin (0.2-1.0) mg/dL AST (10-42) IU/L ALT (10-60) IU/L Alkaline Phosphatase (42-121) IU/L Total Protein (6.7-8.2) g/dL Albumin (3.2-5.5) g/dL Globulin (2.1-4.2) g/dL Albumin/Globulin Ratio (1.0-2.2) Serum Ketones (NEGATIVE) 01/10/19 01/10/19 01/10/19 Range/Units 05:32 05:23 05:23 WBC 6.6 (4.8-10.8) x10^3/uL RBC 4.34 L (4.70-6.10) 10^6/uL Hgb 12.2 L (14.0-18.0) g/dL Hct 36.8 L (42.0-52.0) % MCV 84.7 (80.0-94.0) fL MCH 28.0 (27.0-31.0) pg MCHC 33.1 (32.0-36.0) g/dL RDW 13.9 (12.0-15.0) % Plt Count 207 (130-450) 10^3/uL MPV 7.9 (7.4-11.4) fL Neut # (Auto) 4.5 (1.5-6.6) 10^3/uL Lymph # (Auto) 1.6 (1.5-3.5) 10^3/uL Brooke # (Auto) 0.5 (0.0-1.0) 10^3/uL Eos # (Auto) 0.0 (0.0-0.7) 10^3/uL Baso # (Auto) 0.0 (0.0-0.1) 10^3/uL Absolute Nucleated RBC 0.00 x10^3/uL Nucleated RBC % 0.0 /100WBC Sodium 133 L (135-145) mmol/L Potassium 3.5 (3.5-5.0) mmol/L Chloride 103 (101-111) mmol/L Carbon Dioxide 21 (21-32) mmol/L Anion Gap 9.0 (6-13) BUN 8 (6-20) mg/dL Creatinine 0.5 L (0.6-1.2) mg/dL Estimated GFR (MDRD) 212 (>89) Glucose 289 H (70-100) mg/dL POC Whole Bld Glucose (70 - 100) mg/dL Calcium 8.9 (8.5-10.3) mg/dL Total Bilirubin 0.8 (0.2-1.0) mg/dL AST 17 (10-42) IU/L ALT 13 (10-60) IU/L Alkaline Phosphatase 78 (42-121) IU/L Total Protein 6.0 L (6.7-8.2) g/dL Albumin 3.1 L (3.2-5.5) g/dL Globulin 2.9 (2.1-4.2) g/dL Albumin/Globulin Ratio 1.1 (1.0-2.2) Serum Ketones NEGATIVE (NEGATIVE) 01/09/19 01/09/19 01/09/19 Range/Units 20:27 16:23 12:28 WBC (4.8-10.8) x10^3/uL RBC (4.70-6.10) 10^6/uL Hgb (14.0-18.0) g/dL Hct (42.0-52.0) % MCV (80.0-94.0) fL MCH (27.0-31.0) pg MCHC (32.0-36.0) g/dL RDW (12.0-15.0) % Plt Count (130-450) 10^3/uL MPV (7.4-11.4) fL Neut # (Auto) (1.5-6.6) 10^3/uL Lymph # (Auto) (1.5-3.5) 10^3/uL Brooke # (Auto) (0.0-1.0) 10^3/uL Eos # (Auto) (0.0-0.7) 10^3/uL Baso # (Auto) (0.0-0.1) 10^3/uL Absolute Nucleated RBC x10^3/uL Nucleated RBC % /100WBC Sodium (135-145) mmol/L Potassium (3.5-5.0) mmol/L Chloride (101-111) mmol/L Carbon Dioxide (21-32) mmol/L Anion Gap (6-13) BUN (6-20) mg/dL Creatinine (0.6-1.2) mg/dL Estimated GFR (MDRD) (>89) Glucose (70-100) mg/dL POC Whole Bld Glucose 184 H 213 H 126 H (70 - 100) mg/dL Calcium (8.5-10.3) mg/dL Total Bilirubin (0.2-1.0) mg/dL AST (10-42) IU/L ALT (10-60) IU/L Alkaline Phosphatase (42-121) IU/L Total Protein (6.7-8.2) g/dL Albumin (3.2-5.5) g/dL Globulin (2.1-4.2) g/dL Albumin/Globulin Ratio (1.0-2.2) Serum Ketones (NEGATIVE) 01/09/19 01/09/19 01/09/19 Range/Units 11:51 11:23 07:37 WBC (4.8-10.8) x10^3/uL RBC (4.70-6.10) 10^6/uL Hgb (14.0-18.0) g/dL Hct (42.0-52.0) % MCV (80.0-94.0) fL MCH (27.0-31.0) pg MCHC (32.0-36.0) g/dL RDW (12.0-15.0) % Plt Count (130-450) 10^3/uL MPV (7.4-11.4) fL Neut # (Auto) (1.5-6.6) 10^3/uL Lymph # (Auto) (1.5-3.5) 10^3/uL Brooke # (Auto) (0.0-1.0) 10^3/uL Eos # (Auto) (0.0-0.7) 10^3/uL Baso # (Auto) (0.0-0.1) 10^3/uL Absolute Nucleated RBC x10^3/uL Nucleated RBC % /100WBC Sodium (135-145) mmol/L Potassium (3.5-5.0) mmol/L Chloride (101-111) mmol/L Carbon Dioxide (21-32) mmol/L Anion Gap (6-13) BUN (6-20) mg/dL Creatinine (0.6-1.2) mg/dL Estimated GFR (MDRD) (>89) Glucose (70-100) mg/dL POC Whole Bld Glucose 60 L* 65 L 92 (70 - 100) mg/dL Calcium (8.5-10.3) mg/dL Total Bilirubin (0.2-1.0) mg/dL AST (10-42) IU/L ALT (10-60) IU/L Alkaline Phosphatase (42-121) IU/L Total Protein (6.7-8.2) g/dL Albumin (3.2-5.5) g/dL Globulin (2.1-4.2) g/dL Albumin/Globulin Ratio (1.0-2.2) Serum Ketones (NEGATIVE) 01/08/19 01/08/19 01/08/19 Range/Units 21:05 17:03 14:25 WBC (4.8-10.8) x10^3/uL RBC (4.70-6.10) 10^6/uL Hgb (14.0-18.0) g/dL Hct (42.0-52.0) % MCV (80.0-94.0) fL MCH (27.0-31.0) pg MCHC (32.0-36.0) g/dL RDW (12.0-15.0) % Plt Count (130-450) 10^3/uL MPV (7.4-11.4) fL Neut # (Auto) (1.5-6.6) 10^3/uL Lymph # (Auto) (1.5-3.5) 10^3/uL Brooke # (Auto) (0.0-1.0) 10^3/uL Eos # (Auto) (0.0-0.7) 10^3/uL Baso # (Auto) (0.0-0.1) 10^3/uL Absolute Nucleated RBC x10^3/uL Nucleated RBC % /100WBC Sodium (135-145) mmol/L Potassium (3.5-5.0) mmol/L Chloride (101-111) mmol/L Carbon Dioxide (21-32) mmol/L Anion Gap (6-13) BUN (6-20) mg/dL Creatinine (0.6-1.2) mg/dL Estimated GFR (MDRD) (>89) Glucose (70-100) mg/dL POC Whole Bld Glucose 214 H 208 H 227 H (70 - 100) mg/dL Calcium (8.5-10.3) mg/dL Total Bilirubin (0.2-1.0) mg/dL AST (10-42) IU/L ALT (10-60) IU/L Alkaline Phosphatase (42-121) IU/L Total Protein (6.7-8.2) g/dL Albumin (3.2-5.5) g/dL Globulin (2.1-4.2) g/dL Albumin/Globulin Ratio (1.0-2.2) Serum Ketones (NEGATIVE) 01/08/19 01/08/19 01/08/19 Range/Units 12:13 11:05 10:39 WBC (4.8-10.8) x10^3/uL RBC (4.70-6.10) 10^6/uL Hgb (14.0-18.0) g/dL Hct (42.0-52.0) % MCV (80.0-94.0) fL MCH (27.0-31.0) pg MCHC (32.0-36.0) g/dL RDW (12.0-15.0) % Plt Count (130-450) 10^3/uL MPV (7.4-11.4) fL Neut # (Auto) (1.5-6.6) 10^3/uL Lymph # (Auto) (1.5-3.5) 10^3/uL Brooke # (Auto) (0.0-1.0) 10^3/uL Eos # (Auto) (0.0-0.7) 10^3/uL Baso # (Auto) (0.0-0.1) 10^3/uL Absolute Nucleated RBC x10^3/uL Nucleated RBC % /100WBC Sodium (135-145) mmol/L Potassium (3.5-5.0) mmol/L Chloride (101-111) mmol/L Carbon Dioxide (21-32) mmol/L Anion Gap (6-13) BUN (6-20) mg/dL Creatinine (0.6-1.2) mg/dL Estimated GFR (MDRD) (>89) Glucose (70-100) mg/dL POC Whole Bld Glucose 184 H 185 H 221 H (70 - 100) mg/dL Calcium (8.5-10.3) mg/dL Total Bilirubin (0.2-1.0) mg/dL AST (10-42) IU/L ALT (10-60) IU/L Alkaline Phosphatase (42-121) IU/L Total Protein (6.7-8.2) g/dL Albumin (3.2-5.5) g/dL Globulin (2.1-4.2) g/dL Albumin/Globulin Ratio (1.0-2.2) Serum Ketones (NEGATIVE) 01/08/19 01/08/19 Range/Units 09:39 08:04 WBC (4.8-10.8) x10^3/uL RBC (4.70-6.10) 10^6/uL Hgb (14.0-18.0) g/dL Hct (42.0-52.0) % MCV (80.0-94.0) fL MCH (27.0-31.0) pg MCHC (32.0-36.0) g/dL RDW (12.0-15.0) % Plt Count (130-450) 10^3/uL MPV (7.4-11.4) fL Neut # (Auto) (1.5-6.6) 10^3/uL Lymph # (Auto) (1.5-3.5) 10^3/uL Brooke # (Auto) (0.0-1.0) 10^3/uL Eos # (Auto) (0.0-0.7) 10^3/uL Baso # (Auto) (0.0-0.1) 10^3/uL Absolute Nucleated RBC x10^3/uL Nucleated RBC % /100WBC Sodium (135-145) mmol/L Potassium (3.5-5.0) mmol/L Chloride (101-111) mmol/L Carbon Dioxide (21-32) mmol/L Anion Gap (6-13) BUN (6-20) mg/dL Creatinine (0.6-1.2) mg/dL Estimated GFR (MDRD) (>89) Glucose (70-100) mg/dL POC Whole Bld Glucose 294 H 333 H (70 - 100) mg/dL Calcium (8.5-10.3) mg/dL Total Bilirubin (0.2-1.0) mg/dL AST (10-42) IU/L ALT (10-60) IU/L Alkaline Phosphatase (42-121) IU/L Total Protein (6.7-8.2) g/dL Albumin (3.2-5.5) g/dL Globulin (2.1-4.2) g/dL Albumin/Globulin Ratio (1.0-2.2) Serum Ketones (NEGATIVE) ABX Reporting Has patient been on IV antibiotics over the past 48 hours?: No Sepsis Event Note (H) - Evaluation Current Stage of Sepsis: Ruled out Assessment/Plan - Problem List (1) Intractable nausea and vomiting Impression: (1) GI bleeding resolved, pt denies. HGB is stable. (2) Intractable nausea and vomiting pt still complain of N/V continue anti-emesis, add Compazine PRN continue IVF of NS (3) Abdominal pain pt also complain of diffused abdominal pain continue pain control order CT of abdomen, because he continue complain of abdominal pain since he was admitted (4) Diabetes mellitus, insulin-dependent (IDDM or type I) stable, continue Lantus QPM/QAM continue slide scale carbo controlled diet (5) Non compliance with medical treatment Impression: advise pt for medical compliance (6) Polysubstance abuse advise pt quit illicit drugs.
[2019-01-10] MEDS ORDERED: diphenhydrAMINE 25 MG CAPSULE PO PRN (18:26)
[2019-01-10] MEDS ORDERED: IOVERSOL 320 50 ML VIAL ONE (19:31)
[2019-01-10] MEDS ORDERED: IOVERSOL 320 100 ML VIAL IVP ONE ×2 (19:43→21:17)
[2019-01-10] MEDS ORDERED: IOVERSOL 320 50 ML VIAL PO ONE (21:17)
[2019-01-10] MEDS ORDERED: CALAMINE/ZINC OXIDE 118 ML BOTTLE TOP PRN (21:22)
--- NOTE | 2019-01-10 21:46 | CT Report ---
Reason: continue N/V/abdominal pain Procedure Date: 01/10/2019 Accession Number: [id number] / [id number] Procedure: CT - Abdomen/Pelvis W CPT Code: FULL RESULT: EXAM: CT ABDOMEN AND PELVIS EXAM DATE: 01/10/2019 09:20 PM. CLINICAL HISTORY: Continued nausea and vomiting, abdomen pain. COMPARISONS: ABDOMEN/PELVIS W/ 01/31/2018 4:34 PM. TECHNIQUE: Routine helical CT imaging was performed through the abdomen and pelvis. IV contrast: 100 cc of Optiray 320. Enteric contrast: Yes. Reconstructions: Coronal and sagittal. In accordance with CT protocol optimization, one or more of the following dose reduction techniques were utilized for this exam: automated exposure control, adjustment of mA and/or KV based on patient size, or use of iterative reconstructive technique. FINDINGS: Lung Bases: Unremarkable. Liver: Normal. No masses. Gallbladder/Bile Ducts: Unremarkable. Spleen: Normal. Pancreas: Normal. Adrenal Glands: Normal. Kidneys: Mild hydronephrosis and hydroureter, right greater than left. Peritoneal Cavity/Bowel: Normal. No free fluid, free air or adenopathy. No masses or acute inflammatory process. The appendix is well visualized and normal. Pelvic Organs: Distended bladder. Unremarkable prostate. Vasculature: No aneurysms or other significant abnormality. Bones: No significant abnormality. Other: None. IMPRESSION: Distended bladder again noted with mild hydronephrosis and hydroureter, right greater than left. Otherwise unremarkable abdomen and pelvis CT. [facility]
[2019-01-10] MEDS: INSULIN GLARGINE 300 UNIT/3 ML PEN SUBQ SCH (22:21)
[2019-01-10] MEDS: SODIUM CHLORIDE FLUSH 0.9% 10 ML SYRINGE IVP PRN (22:21)
[2019-01-11] MEDS: diphenhydrAMINE INJ 50 MG/ML VIAL IVP PRN ×4 (00:52→21:58)
[2019-01-11] MEDS: SODIUM CHLORIDE FLUSH 0.9% 10 ML SYRINGE IVP SCH ×4 (00:52→07:01)
[2019-01-11] MEDS: ONDANSETRON 4 MG/2 ML VIAL IVP PRN ×3 (00:58→13:56)
[2019-01-11] MEDS: NS W/20 MEQ KCL 1,000 ML IV SCH ×3 (00:58→17:47)
[2019-01-11] MEDS: METOCLOPRAMIDE 10 MG/2 ML VIAL IVP SCH ×4 (04:42→21:59)
[2019-01-11 06:18] LABS: BASOPHILS % (AUTO) 0.5 %; EOSINOPHILS % (AUTO) 0.6 %; HGB - HEMOGLOBIN 12.3 g/dL (14.0-18.0); LYMPHOCYTES # (AUTO) 1.4 10^3/uL (1.5-3.5); LYMPHOCYTES % (AUTO) 21.4 %; MEAN CORPUSCULAR HEMOGLOBIN 28.3 pg (27.0-31.0); MEAN CORPUSCULAR HGB CONC 32.8 g/dL (32.0-36.0); MEAN CORPUSCULAR VOLUME 86.3 fL (80.0-94.0); MEAN PLATELET VOLUME 8.2 fL (7.4-11.4); MONOCYTES # (AUTO) 0.6 10^3/uL (0.0-1.0); MONOCYTES % (AUTO) 8.5 %; NEUTROPHILS # (AUTO) 4.6 10^3/uL (1.5-6.6); PLT - PLATELET COUNT 196 10^3/uL (130-450); RED BLOOD COUNT 4.33 10^6/uL (4.70-6.10); RED CELL DISTRIBUTION WIDTH 13.7 % (12.0-15.0); WHITE BLOOD COUNT 6.7 x10^3/uL (4.8-10.8)
[2019-01-11 06:28] LABS: ALBUMIN 3.1 g/dL (3.2-5.5); ALBUMIN/GLOBULIN RATIO 1.1 (1.0-2.2); BILIRUBIN,TOTAL 0.7 mg/dL (0.2-1.0); CALCIUM 8.6 mg/dL (8.5-10.3); CREATININE 0.4 mg/dL (0.6-1.2)
[2019-01-11] MEDS: INSULIN ASPART 300 UNIT/3 ML PEN SUBQ SCH ×4 (08:08→21:37)
[2019-01-11] MEDS: PANTOPRAZOLE 40 MG VIAL IVP SCH ×2 (08:15→21:58)
[2019-01-11] MEDS: SODIUM CHLORIDE FLUSH 0.9% 10 ML SYRINGE IVP PRN (08:15)
[2019-01-11] MEDS: POLYETHYLENE GLYCOL 3350 17 GM PACKET PO SCH (08:21)
[2019-01-11] MEDS: ACETAMINOPHEN 1,000 MG/100 ML 100 ML IV PRN (08:33)
[2019-01-11] MEDS: DICYCLOMINE 10 MG CAPSULE PO SCH ×3 (13:56→21:59)
--- NOTE | 2019-01-11 16:50 | PROVIDER PROGRESS NOTE ---
Subjective - Prog Note Date Prog Note Date: 01/11/19 - Subjective Pt reports feeling: No change Subjective: pt still complain of N/V, and abdominal pain. nurse did witness pt N/V. pt denies fever, chill, headache, CP. Current Medications - Current Medications Current Medications: Active Medications Calamine (Calamine) 1 applic TOP PRN PRN PRN Reason: ITCHING Last Admin: 01/11/19 14:02 Dose: 1 applic Dicyclomine HCl (Bentyl) 10 mg PO QID [facility] Last Admin: 01/11/19 13:56 Dose: 10 mg Diphenhydramine HCl (Benadryl Inj) 25 mg IVP Q6H PRN PRN Reason: Allergy Symptoms Last Admin: 01/11/19 14:10 Dose: 25 mg Fluoxetine HCl (Prozac) 40 mg PO DAILY PRN PRN Reason: DEPRESSION Gabapentin (Neurontin) 300 mg PO Q4H PRN PRN Reason: PAIN Acetaminophen (Ofirmev) 100 mls @ 400 mls/hr IV Q8HR PRN PRN Reason: PAIN Last Infusion: 01/11/19 08:48 Dose: Infused Potassium Chloride/Sodium Chloride (Normal Saline 0.9% W/20 Meq Kcl) 1,000 mls @ 125 mls/hr IV .Q8H [facility] Last Admin: 01/11/19 09:53 Dose: 125 mls/hr Insulin Aspart (Novolog) 1 - 5 unit SUBQ 0800,1200,1700,2100 [facility]; Protocol Last Admin: 01/11/19 12:24 Dose: 1 unit Insulin Glargine (Lantus Solostar) 20 unit SUBQ QPM [facility] Last Admin: 01/10/19 22:21 Dose: 20 unit Lidocaine HCl (Xylocaine Uro-Jet 2%) 2.5 ml UR Q6H PRN PRN Reason: PAIN Metoclopramide HCl (Reglan Inj) 10 mg IVP Q6H [facility] Last Admin: 01/11/19 14:40 Dose: 10 mg Multivitamins/Minerals (Theragran M) 1 tab PO DAILYWM [facility] Ondansetron HCl (Zofran Inj) 4 mg IVP Q4HR PRN PRN Reason: Nausea / Vomiting Last Admin: 01/11/19 13:56 Dose: 4 mg Pantoprazole Sodium (Protonix) 40 mg IVP BID [facility] Last Admin: 01/11/19 08:15 Dose: 40 mg Polyethylene Glycol (Miralax) 17 gm PO DAILY [facility] Last Admin: 01/11/19 08:21 Dose: Not Given Prochlorperazine Edisylate (Compazine Inj) 10 mg IVP Q4HR PRN PRN Reason: Nausea / Vomiting Quetiapine Fumarate (Seroquel) 50 mg PO QPM PRN PRN Reason: NEEDED PER PROVIDER ORDERS Sodium Chloride (Normal Saline Flush 0.9%) 10 ml IVP PRN PRN PRN Reason: NEEDED PER PROVIDER ORDERS Last Admin: 01/11/19 08:15 Dose: 10 ml Sodium Chloride (Normal Saline Flush 0.9%) 10 ml IVP 0100,0900,1700 [facility] Last Admin: 01/11/19 07:01 Dose: 10 ml Temazepam (Restoril) 15 mg PO QPM PRN PRN Reason: Insomnia Last Admin: 01/10/19 22:20 Dose: 15 mg Dicyclomine [Bentyl] 20 mg PO DAILY PRN 11/28/18 Fluoxetine HCl 40 mg PO DAILY PRN 11/28/18 Gabapentin 900 mg PO QPM PRN 11/28/18 Quetiapine Fumarate [Quetiapine Fumarate ER] 50 mg PO QPM PRN 11/28/18 Insulin Aspart [NovoLOG] 0 - 7 units SUBQ TIDWM PRN 01/08/19 Insulin Glargine [Lantus Solostar] 40 units SUBQ QPM 01/08/19 Objective - Vital Signs/Intake & Output Reviewed Vital Signs: Yes Vital Signs: Vital Signs x48h Temp Pulse Pulse Resp BP BP Pulse Ox 01/11/19 15:45 37.1 C 127 H 107 H 20 136/84 H 98 01/11/19 11:31 36.9 C 110 H 18 134/87 H 100 01/11/19 09:58 106 H Intake & Output: Intake & Output 01/08/19 01/09/19 01/10/19 01/11/19 23:59 23:59 23:59 23:59 Intake Total 2710.6 3685.0 3142 4100 Output Total 576 4100 3875 2049 Balance 2134.6 -415.0 -733 2049 - Objective General Appearance: positive: No acute distress, Alert. negative: Lethargic Eyes Bilateral: positive: Normal inspection, PERRL. negative: No lid inflammation, Conjunctivae nml ENT: positive: ENT inspection nml, Pharynx nml, No signs of dehydration. negative: Purulent nasal drainage, Pharyngeal erythema, Oral lesions Neck: positive: Nml inspection, Thyroid nml, No JVD, Trachea midline. negative: Thyromegaly, Lymphadenopathy (R), Lymphadenopathy (L), Stiff neck, Sw elling/bruising, Tracheal deviation Respiratory: positive: Chest non-tender, No respiratory distress, Breath sounds nml. negative: Wheezes, Rales, Rhonchi Cardiovascular: positive: Regular rate & rhythm, No murmur, No gallop. negative: Irregularly irregular, Extrasystoles, Tachycardia, Bradycardia, JVD present, Systolic murmur, Diastolic murmur Peripheral Pulses: 2+ Radial (R), 2+ Radial (L), 2+ Dorsalis pedis (R), 2+ D orsalis pedis (L) Abdomen: positive: Non-tender, No organomegaly, Nml bowel sounds, No distention. negative: Tenderness, Guarding, Rebound Back: positive: Nml inspection. negative: CVA tenderness (R), CVA tenderness (L) Skin: positive: Color nml, No rash, Warm, Dry. negative: Cyanosis, Diaphoresis, Pallor Extremities: positive: Non-tender, Full ROM, Nml appearance. negative: Calf tenderness, Joint swelling, Cordell's sign/cords Neurologic/Psychiatric: positive: Oriented x3, Motor nml, Sensation nml, Mood/affect nml. negative: Weakness, Sensory loss, Facial droop, Slurred/abnml speech, Depressed mood/affect - Lab Results Fish Bones: 01/11/19 05:45 01/11/19 05:45 Other Labs: Lab Results x24hrs 01/11/19 01/11/19 01/11/19 Range/Units 16:29 11:23 07:21 WBC (4.8-10.8) x10^3/uL RBC (4.70-6.10) 10^6/uL Hgb (14.0-18.0) g/dL Hct (42.0-52.0) % MCV (80.0-94.0) fL MCH (27.0-31.0) pg MCHC (32.0-36.0) g/dL RDW (12.0-15.0) % Plt Count (130-450) 10^3/uL MPV (7.4-11.4) fL Neut # (Auto) (1.5-6.6) 10^3/uL Lymph # (Auto) (1.5-3.5) 10^3/uL Hinds # (Auto) (0.0-1.0) 10^3/uL Eos # (Auto) (0.0-0.7) 10^3/uL Baso # (Auto) (0.0-0.1) 10^3/uL Absolute Nucleated RBC x10^3/uL Nucleated RBC % /100WBC Sodium (135-145) mmol/L Potassium (3.5-5.0) mmol/L Chloride (101-111) mmol/L Carbon Dioxide (21-32) mmol/L Anion Gap (6-13) BUN (6-20) mg/dL Creatinine (0.6-1.2) mg/dL Estimated GFR (MDRD) (>89) Glucose (70-100) mg/dL POC Whole Bld Glucose 181 H 163 H 271 H (70 - 100) mg/dL Calcium (8.5-10.3) mg/dL Total Bilirubin (0.2-1.0) mg/dL AST (10-42) IU/L ALT (10-60) IU/L Alkaline Phosphatase (42-121) IU/L Total Protein (6.7-8.2) g/dL Albumin (3.2-5.5) g/dL Globulin (2.1-4.2) g/dL Albumin/Globulin Ratio (1.0-2.2) 01/11/19 01/11/19 01/11/19 Range/Units 05:45 05:45 04:55 WBC 6.7 (4.8-10.8) x10^3/uL RBC 4.33 L (4.70-6.10) 10^6/uL Hgb 12.3 L (14.0-18.0) g/dL Hct 37.4 L (42.0-52.0) % MCV 86.3 (80.0-94.0) fL MCH 28.3 (27.0-31.0) pg MCHC 32.8 (32.0-36.0) g/dL RDW 13.7 (12.0-15.0) % Plt Count 196 (130-450) 10^3/uL MPV 8.2 (7.4-11.4) fL Neut # (Auto) 4.6 (1.5-6.6) 10^3/uL Lymph # (Auto) 1.4 L (1.5-3.5) 10^3/uL Hinds # (Auto) 0.6 (0.0-1.0) 10^3/uL Eos # (Auto) 0.0 (0.0-0.7) 10^3/uL Baso # (Auto) 0.0 (0.0-0.1) 10^3/uL Absolute Nucleated RBC 0.00 x10^3/uL Nucleated RBC % 0.0 /100WBC Sodium 134 L (135-145) mmol/L Potassium 3.6 (3.5-5.0) mmol/L Chloride 105 (101-111) mmol/L Carbon Dioxide 21 (21-32) mmol/L Anion Gap 8.0 (6-13) BUN 10 (6-20) mg/dL Creatinine 0.4 L (0.6-1.2) mg/dL Estimated GFR (MDRD) 274 (>89) Glucose 242 H (70-100) mg/dL POC Whole Bld Glucose 132 H (70 - 100) mg/dL Calcium 8.6 (8.5-10.3) mg/dL Total Bilirubin 0.7 (0.2-1.0) mg/dL AST 13 (10-42) IU/L ALT 11 (10-60) IU/L Alkaline Phosphatase 78 (42-121) IU/L Total Protein 6.0 L (6.7-8.2) g/dL Albumin 3.1 L (3.2-5.5) g/dL Globulin 2.9 (2.1-4.2) g/dL Albumin/Globulin Ratio 1.1 (1.0-2.2) 01/10/19 Range/Units 20:43 WBC (4.8-10.8) x10^3/uL RBC (4.70-6.10) 10^6/uL Hgb (14.0-18.0) g/dL Hct (42.0-52.0) % MCV (80.0-94.0) fL MCH (27.0-31.0) pg MCHC (32.0-36.0) g/dL RDW (12.0-15.0) % Plt Count (130-450) 10^3/uL MPV (7.4-11.4) fL Neut # (Auto) (1.5-6.6) 10^3/uL Lymph # (Auto) (1.5-3.5) 10^3/uL Hinds # (Auto) (0.0-1.0) 10^3/uL Eos # (Auto) (0.0-0.7) 10^3/uL Baso # (Auto) (0.0-0.1) 10^3/uL Absolute Nucleated RBC x10^3/uL Nucleated RBC % /100WBC Sodium (135-145) mmol/L Potassium (3.5-5.0) mmol/L Chloride (101-111) mmol/L Carbon Dioxide (21-32) mmol/L Anion Gap (6-13) BUN (6-20) mg/dL Creatinine (0.6-1.2) mg/dL Estimated GFR (MDRD) (>89) Glucose (70-100) mg/dL POC Whole Bld Glucose 134 H (70 - 100) mg/dL Calcium (8.5-10.3) mg/dL Total Bilirubin (0.2-1.0) mg/dL AST (10-42) IU/L ALT (10-60) IU/L Alkaline Phosphatase (42-121) IU/L Total Protein (6.7-8.2) g/dL Albumin (3.2-5.5) g/dL Globulin (2.1-4.2) g/dL Albumin/Globulin Ratio (1.0-2.2) ABX Reporting Has patient been on IV antibiotics over the past 48 hours?: No Sepsis Event Note (H) - Evaluation Current Stage of Sepsis: Ruled out Assessment/Plan - Problem List (1) GI bleeding Impression: resolved, pt denies. HGB is stable. (2) Intractable nausea and vomiting 01/11 switch clear diet, let bowel have rest, advance diet as tolerate schedule Reglan discuss with nurse, add compazine for pt, on time give it to pt when pt has N/V continue IVF of NS pt still complain of N/V continue anti-emesis, add Compazine PRN continue IVF of NS (3) Abdominal pain CT of abdomen reveals no acute findings pt still continue abdominal pain, add Bentyl schedule pt also complain of diffused abdominal pain continue pain control order CT of abdomen, because he continue complain of abdominal pain since he was admitted (4) Diabetes mellitus, insulin-dependent (IDDM or type I) stable, continue Lantus QPM/QAM continue slide scale carbo controlled diet (5) Non compliance with medical treatment Impression: advise pt for medical compliance (6) Polysubstance abuse advise pt quit illicit drug
[2019-01-11] MEDS: MULTIVITAMIN W/MINERALS TABLET PO SCH (17:48)
[2019-01-11] MEDS: INSULIN GLARGINE 300 UNIT/3 ML PEN SUBQ SCH (22:08)
[2019-01-11] MEDS ORDERED: DICYCLOMINE 10 MG CAPSULE PO PRN (22:41)
[2019-01-11] MEDS ORDERED: D5NS W/20 MEQ KCL 1,000 ML IV SCH (23:00)
[2019-01-12 06:22] LABS: BASOPHILS % (AUTO) 0.5 %; EOSINOPHILS % (AUTO) 0.2 %; HGB - HEMOGLOBIN 12.8 g/dL (14.0-18.0); LYMPHOCYTES # (AUTO) 1.1 10^3/uL (1.5-3.5); LYMPHOCYTES % (AUTO) 20.2 %; MEAN CORPUSCULAR HEMOGLOBIN 28.6 pg (27.0-31.0); MEAN CORPUSCULAR HGB CONC 33.6 g/dL (32.0-36.0); MEAN CORPUSCULAR VOLUME 84.9 fL (80.0-94.0); MEAN PLATELET VOLUME 8.1 fL (7.4-11.4); MONOCYTES # (AUTO) 0.4 10^3/uL (0.0-1.0); MONOCYTES % (AUTO) 7.2 %; NEUTROPHILS # (AUTO) 3.8 10^3/uL (1.5-6.6); NEUTROPHILS % (AUTO) 71.9 %; PLT - PLATELET COUNT 205 10^3/uL (130-450); RED CELL DISTRIBUTION WIDTH 13.4 % (12.0-15.0); WHITE BLOOD COUNT 5.3 x10^3/uL (4.8-10.8)
[2019-01-12 06:25] LABS: CALCIUM 8.8 mg/dL (8.5-10.3); CREATININE 0.5 mg/dL (0.6-1.2)
[2019-01-12] MEDS ORDERED: PANTOPRAZOLE 40 MG TABLET PO SCH (07:00)
[2019-01-12] MEDS: MULTIVITAMIN W/MINERALS TABLET PO SCH (08:31)
[2019-01-12] MEDS: POLYETHYLENE GLYCOL 3350 17 GM PACKET PO SCH (08:31)
[2019-01-12] MEDS: INSULIN ASPART 300 UNIT/3 ML PEN SUBQ SCH ×4 (08:32→21:59)
[2019-01-12] MEDS: NS W/20 MEQ KCL 1,000 ML IV SCH ×2 (08:38→18:19)
[2019-01-12] MEDS: diphenhydrAMINE INJ 50 MG/ML VIAL IVP PRN ×3 (10:08→23:56)
[2019-01-12] MEDS: SODIUM CHLORIDE FLUSH 0.9% 10 ML SYRINGE IVP PRN (10:09)
--- NOTE | 2019-01-12 16:10 | PROVIDER PROGRESS NOTE ---
Subjective - Prog Note Date Prog Note Date: 01/12/19 - Subjective Pt reports feeling: Improved Subjective: pt report he has no vomiting but still has nausea and abdominal pain. Every time when I come into his room, he is sleeping. It seems nausea and abdominal pain he reported are not bothering his sleeping. pt does not show distress. pt state he had pain medication [place] at his home. But pharmacy confirm pt has no [place] at his current home medication list. Current Medications - Current Medications Current Medications: Active Medications Calamine (Calamine) 1 applic TOP PRN PRN PRN Reason: ITCHING Last Admin: 01/11/19 14:02 Dose: 1 applic Dicyclomine HCl (Bentyl) 10 mg PO QID PRN PRN Reason: Abdominal Pain Diphenhydramine HCl (Benadryl Inj) 25 mg IVP Q6H PRN PRN Reason: Allergy Symptoms Last Admin: 01/12/19 10:08 Dose: 25 mg Fluoxetine HCl (Prozac) 40 mg PO DAILY PRN PRN Reason: DEPRESSION Gabapentin (Neurontin) 300 mg PO Q4H PRN PRN Reason: PAIN Potassium Chloride/Sodium Chloride (Normal Saline 0.9% W/20 Meq Kcl) 1,000 mls @ 100 mls/hr IV .Q10H [facility] Last Admin: 01/12/19 08:38 Dose: 100 mls/hr Insulin Aspart (Novolog) 1 - 5 unit SUBQ 0800,1200,1700,2100 SHEILA; Protocol Last Admin: 01/12/19 11:40 Dose: 2 unit Insulin Glargine (Lantus Solostar) 20 unit SUBQ QPM [facility] Last Admin: 01/11/19 22:08 Dose: 20 unit Lidocaine HCl (Xylocaine Uro-Jet 2%) 2.5 ml UR Q6H PRN PRN Reason: PAIN Metoclopramide HCl (Reglan Inj) 10 mg IVP Q6H PRN PRN Reason: Nausea / Vomiting Multivitamins/Minerals (Theragran M) 1 tab PO DAILYWM [facility] Last Admin: 01/12/19 08:31 Dose: 1 tab Ondansetron HCl (Zofran Inj) 4 mg IVP Q4HR PRN PRN Reason: Nausea / Vomiting Last Admin: 01/11/19 13:56 Dose: 4 mg Pantoprazole Sodium (Protonix) 40 mg PO QDAC [facility] Last Admin: 01/12/19 06:48 Dose: 40 mg Polyethylene Glycol (Miralax) 17 gm PO DAILY [facility] Last Admin: 01/12/19 08:31 Dose: Not Given Prochlorperazine Edisylate (Compazine Inj) 10 mg IVP Q4HR PRN PRN Reason: Nausea / Vomiting Quetiapine Fumarate (Seroquel) 50 mg PO QPM PRN PRN Reason: NEEDED PER PROVIDER ORDERS Sodium Chloride (Normal Saline Flush 0.9%) 10 ml IVP PRN PRN PRN Reason: NEEDED PER PROVIDER ORDERS Last Admin: 01/12/19 10:09 Dose: 10 ml Sodium Chloride (Normal Saline Flush 0.9%) 10 ml IVP 0100,0900,1700 [facility] Last Admin: 01/11/19 07:01 Dose: 10 ml Temazepam (Restoril) 15 mg PO QPM PRN PRN Reason: Insomnia Last Admin: 01/10/19 22:20 Dose: 15 mg Dicyclomine [Bentyl] 20 mg PO DAILY PRN 11/28/18 Fluoxetine HCl 40 mg PO DAILY PRN 11/28/18 Gabapentin 900 mg PO QPM PRN 11/28/18 Quetiapine Fumarate [Quetiapine Fumarate ER] 50 mg PO QPM PRN 11/28/18 Insulin Aspart [NovoLOG] 0 - 7 units SUBQ TIDWM PRN 01/08/19 Insulin Glargine [Lantus Solostar] 40 units SUBQ QPM 01/08/19 Objective - Vital Signs/Intake & Output Reviewed Vital Signs: Yes Vital Signs: Vital Signs x48h Temp Pulse Resp BP Pulse Ox 01/12/19 15:58 37.0 C 103 H 20 122/75 99 Intake & Output: Intake & Output 01/09/19 01/10/19 01/11/19 01/12/19 23:59 23:59 23:59 23:59 Intake Total 3685.0 3142 5637.5 1929 Output Total 4100 3875 2049 Balance -415.0 -733 3587.5 1929 - Objective General Appearance: positive: No acute distress, Alert. negative: Lethargic Eyes Bilateral: positive: Normal inspection, PERRL, No lid inflammation, Conjunctivae nml ENT: positive: ENT inspection nml, Pharynx nml, No signs of dehydration. negative: Purulent nasal drainage, Pharyngeal erythema, Oral lesions Neck: positive: Nml inspection, Thyroid nml, No JVD, Trachea midline. negative: Thyromegaly, Lymphadenopathy (R), Lymphadenopathy (L), Stiff neck, Swelling/bruising, Tracheal deviation Respiratory: positive: Chest non-tender, No respiratory distress, Breath sounds nml. negative: Wheezes, Rales, Rhonchi Cardiovascular: positive: Regular rate & rhythm, No murmur, No gallop. negative: Irregularly irregular, Extrasystoles, Tachycardia, Bradycardia, JVD present, Systolic murmur, Diastolic murmur Peripheral Pulses: 2+ Radial (R), 2+ Radial (L), 2+ Dorsalis pedis (R), 2+ Dorsalis pedis (L) Abdomen: positive: Non-tender, No organomegaly, Nml bowel sounds, No distention. negative: Tenderness, Guarding, Rebound Back: positive: Nml inspection. negative: CVA tenderness (R), CVA tenderness (L) Skin: positive: Color nml, No rash, Warm, Dry. negative: Cyanosis, Diaphoresis, Pallor Extremities: positive: Non-tender, Full ROM, Nml appearance. negative: Calf tenderness, Joint swelling, Cordell's sign/cords Neurologic/Psychiatric: positive: Oriented x3, Motor nml, Sensation nml, Mood/affect nml. negative: Weakness, Sensory loss, Facial droop, Slurred/abnml speech, Depressed mood/affect - Lab Results Fish Bones: 01/12/19 05:45 01/12/19 05:45 Other Labs: Lab Results x24hrs 01/12/19 01/12/19 01/12/19 Range/Units 11:31 07:20 05:45 WBC (4.8-10.8) x10^3/uL RBC (4.70-6.10) 10^6/uL Hgb (14.0-18.0) g/dL Hct (42.0-52.0) % MCV (80.0-94.0) fL MCH (27.0-31.0) pg MCHC (32.0-36.0) g/dL RDW (12.0-15.0) % Plt Count (130-450) 10^3/uL MPV (7.4-11.4) fL Neut # (Auto) (1.5-6.6) 10^3/uL Lymph # (Auto) (1.5-3.5) 10^3/uL [place] # (Auto) (0.0-1.0) 10^3/uL Eos # (Auto) (0.0-0.7) 10^3/uL Baso # (Auto) (0.0-0.1) 10^3/uL Absolute Nucleated RBC x10^3/uL Nucleated RBC % /100WBC Sodium 137 (135-145) mmol/L Potassium 3.7 (3.5-5.0) mmol/L Chloride 105 (101-111) mmol/L Carbon Dioxide 21 (21-32) mmol/L Anion Gap 11.0 (6-13) BUN 8 (6-20) mg/dL Creatinine 0.5 L (0.6-1.2) mg/dL Estimated GFR (MDRD) 212 (>89) Glucose 191 H (70-100) mg/dL POC Whole Bld Glucose 206 H 208 H (70 - 100) mg/dL Calcium 8.8 (8.5-10.3) mg/dL 01/12/19 01/11/19 01/11/19 Range/Units 05:45 21:22 16:29 WBC 5.3 (4.8-10.8) x10^3/uL RBC 4.50 L (4.70-6.10) 10^6/uL Hgb 12.8 L (14.0-18.0) g/dL Hct 38.2 L (42.0-52.0) % MCV 84.9 (80.0-94.0) fL MCH 28.6 (27.0-31.0) pg MCHC 33.6 (32.0-36.0) g/dL RDW 13.4 (12.0-15.0) % Plt Count 205 (130-450) 10^3/uL MPV 8.1 (7.4-11.4) fL Neut # (Auto) 3.8 (1.5-6.6) 10^3/uL Lymph # (Auto) 1.1 L (1.5-3.5) 10^3/uL Leon # (Auto) 0.4 (0.0-1.0) 10^3/uL Eos # (Auto) 0.0 (0.0-0.7) 10^3/uL Baso # (Auto) 0.0 (0.0-0.1) 10^3/uL Absolute Nucleated RBC 0.00 x10^3/uL Nucleated RBC % 0.0 /100WBC Sodium (135-145) mmol/L Potassium (3.5-5.0) mmol/L Chloride (101-111) mmol/L Carbon Dioxide (21-32) mmol/L Anion Gap (6-13) BUN (6-20) mg/dL Creatinine (0.6-1.2) mg/dL Estimated GFR (MDRD) (>89) Glucose (70-100) mg/dL POC Whole Bld Glucose 118 H 181 H (70 - 100) mg/dL Calcium (8.5-10.3) mg/dL ABX Reporting Has patient been on IV antibiotics over the past 48 hours?: No Sepsis Event Note (H) - Evaluation Current Stage of Sepsis: Ruled out Assessment/Plan - Problem List (1) GI bleeding Impression: (1) GI bleeding Impression: resolved, pt denies. HGB is stable. (2) Intractable nausea and vomiting 01/12 pt report he has nausea but no vomiting will advance pt's diet as he tolerate anti-emesis with PRN schedule continue IVF of NS 01/11 switch clear diet, let bowel have rest, advance diet as tolerate schedule Reglan discuss with nurse, add compazine for pt, on time give it to pt when pt has N/V continue IVF of NS pt still complain of N/V continue anti-emesis, add Compazine PRN continue IVF of NS (3) Abdominal pain 01/12 pt understands that our Hospitalist team is not able to prescribed narcotics or benzodiazepines as Ms Ríos admitted to him pt has no [place] in his home medication pt has Bentyl as PRN for pain control Tylenol PRN CT of abdomen reveals no acute findings pt still continue abdominal pain, add Bentyl schedule pt also complain of diffused abdominal pain continue pain control order CT of abdomen, because he continue complain of abdominal pain since he was admitted (4) Diabetes mellitus, insulin-dependent (IDDM or type I) stable, continue Lantus QPM/QAM continue slide scale carbo controlled diet (5) Non compliance with medical treatment Impression: advise pt for medical compliance (6) Polysubstance abuse advise pt quit illicit drug
[2019-01-12] MEDS ORDERED: ACETAMINOPHEN 325 MG TABLET PO PRN (16:33)
[2019-01-12] MEDS: METOCLOPRAMIDE 10 MG/2 ML VIAL IVP PRN (16:51)
[2019-01-12] MEDS: INSULIN GLARGINE 300 UNIT/3 ML PEN SUBQ SCH (21:59)
[2019-01-13] MEDS: SODIUM CHLORIDE FLUSH 0.9% 10 ML SYRINGE IVP SCH ×3 (01:17→17:00)
[2019-01-13] MEDS: ONDANSETRON 4 MG/2 ML VIAL IVP PRN (03:23)
[2019-01-13] MEDS: NS W/20 MEQ KCL 1,000 ML IV SCH ×4 (03:27→20:46)
[2019-01-13] MEDS ORDERED: GABAPENTIN 300 MG CAPSULE PO PRN (03:57)
[2019-01-13] MEDS ORDERED: DICYCLOMINE 10 MG CAPSULE PO PRN (03:57)
[2019-01-13] MEDS: LORazepam 2 MG/ML VIAL IVP PRN ×3 (04:31→21:38)
[2019-01-13] MEDS: KETOROLAC 15 MG/ML VIAL IVP PRN ×3 (04:31→21:38)
[2019-01-13] MEDS: SODIUM CHLORIDE FLUSH 0.9% 10 ML SYRINGE IVP PRN ×2 (04:37→21:59)
[2019-01-13] MEDS: GI COCKTAIL 120 ML BOTTLE PO SCH ×5 (05:11→21:48)
[2019-01-13 05:50] LABS: BASOPHILS % (AUTO) 0.2 %; EOSINOPHILS % (AUTO) 0.1 %; HGB - HEMOGLOBIN 12.9 g/dL (14.0-18.0); LYMPHOCYTES # (AUTO) 0.6 10^3/uL (1.5-3.5); MEAN CORPUSCULAR HEMOGLOBIN 28.6 pg (27.0-31.0); MEAN CORPUSCULAR HGB CONC 33.2 g/dL (32.0-36.0); MEAN CORPUSCULAR VOLUME 86.1 fL (80.0-94.0); MEAN PLATELET VOLUME 8.3 fL (7.4-11.4); MONOCYTES # (AUTO) 0.5 10^3/uL (0.0-1.0); MONOCYTES % (AUTO) 6.8 %; NEUTROPHILS # (AUTO) 6.8 10^3/uL (1.5-6.6); NEUTROPHILS % (AUTO) 84.9 %; PLT - PLATELET COUNT 200 10^3/uL (130-450); RED BLOOD COUNT 4.52 10^6/uL (4.70-6.10); RED CELL DISTRIBUTION WIDTH 13.3 % (12.0-15.0)
[2019-01-13 05:53] LABS: CREATININE 0.5 mg/dL (0.6-1.2)
[2019-01-13] MEDS: PANTOPRAZOLE 40 MG VIAL IVP SCH (06:37)
[2019-01-13] MEDS ORDERED: NS W/20 MEQ KCL 1,000 ML IV SCH ×2 (07:23→07:26)
[2019-01-13] MEDS: MULTIVITAMIN W/MINERALS TABLET PO SCH (07:40)
[2019-01-13] MEDS: POLYETHYLENE GLYCOL 3350 17 GM PACKET PO SCH (07:40)
[2019-01-13] MEDS: INSULIN ASPART 300 UNIT/3 ML PEN SUBQ SCH ×4 (07:42→21:49)
[2019-01-13 12:15] LABS: CALCIUM 8.5 mg/dL (8.5-10.3); CREATININE 0.4 mg/dL (0.6-1.2)
[2019-01-13] MEDS: INSULIN GLARGINE 300 UNIT/3 ML PEN SUBQ SCH (21:50)
[2019-01-13] MEDS: diphenhydrAMINE INJ 50 MG/ML VIAL IVP PRN (21:58)
[2019-01-14] MEDS: SODIUM CHLORIDE FLUSH 0.9% 10 ML SYRINGE IVP SCH ×3 (01:49→08:19)
[2019-01-14] MEDS: GI COCKTAIL 120 ML BOTTLE PO SCH ×4 (01:49→12:56)
[2019-01-14] MEDS: LORazepam 2 MG/ML VIAL IVP PRN ×4 (02:30→09:41)
[2019-01-14] MEDS: SODIUM CHLORIDE FLUSH 0.9% 10 ML SYRINGE IVP PRN ×2 (02:31→03:40)
[2019-01-14] MEDS: NS W/20 MEQ KCL 1,000 ML IV SCH (03:34)
[2019-01-14] MEDS: KETOROLAC 15 MG/ML VIAL IVP PRN ×2 (03:37→09:41)
[2019-01-14] MEDS: diphenhydrAMINE INJ 50 MG/ML VIAL IVP PRN (03:42)
[2019-01-14] MEDS: PANTOPRAZOLE 40 MG VIAL IVP SCH (06:10)
[2019-01-14 06:28] LABS: BASOPHILS % (AUTO) 0.1 %; EOSINOPHILS % (AUTO) 0.2 %; HGB - HEMOGLOBIN 12.9 g/dL (14.0-18.0); LYMPHOCYTES # (AUTO) 0.5 10^3/uL (1.5-3.5); LYMPHOCYTES % (AUTO) 9.4 %; MEAN CORPUSCULAR HGB CONC 33.9 g/dL (32.0-36.0); MEAN CORPUSCULAR VOLUME 85.6 fL (80.0-94.0); MEAN PLATELET VOLUME 7.7 fL (7.4-11.4); MONOCYTES # (AUTO) 0.4 10^3/uL (0.0-1.0); MONOCYTES % (AUTO) 6.7 %; NEUTROPHILS # (AUTO) 4.9 10^3/uL (1.5-6.6); NEUTROPHILS % (AUTO) 83.6 %; PLT - PLATELET COUNT 179 10^3/uL (130-450); RED BLOOD COUNT 4.44 10^6/uL (4.70-6.10); RED CELL DISTRIBUTION WIDTH 13.8 % (12.0-15.0); WHITE BLOOD COUNT 5.8 x10^3/uL (4.8-10.8)
[2019-01-14 06:38] LABS: CALCIUM 8.7 mg/dL (8.5-10.3); CREATININE 0.6 mg/dL (0.6-1.2)
[2019-01-14] MEDS ORDERED: NS W/20 MEQ KCL 1,000 ML IV SCH (07:17)
[2019-01-14] MEDS: INSULIN ASPART 300 UNIT/3 ML PEN SUBQ SCH ×3 (07:36→17:02)
[2019-01-14] MEDS: POLYETHYLENE GLYCOL 3350 17 GM PACKET PO SCH (08:16)
[2019-01-14] MEDS: MULTIVITAMIN W/MINERALS TABLET PO SCH (08:19)
[2019-01-14] MEDS ORDERED: HYDROcod/ACETAM 5/325 MG TABLET PO PRN (12:50)
[2019-01-14] MEDS: METOCLOPRAMIDE 10 MG/2 ML VIAL IVP PRN (12:53)
[2019-01-14] MEDS ORDERED: FLUoxetine 10 MG CAPSULE PO SCH (13:00)
[2019-01-14] MEDS ORDERED: GABAPENTIN 400 MG CAPSULE PO SCH (14:00)
--- NOTE | 2019-01-14 15:20 | PROVIDER PROGRESS NOTE ---
Subjective - Prog Note Date Prog Note Date: 01/13/19 - Subjective Pt reports feeling: No change Subjective: pt still report he had N/V and with abdominal pain. He denies chest pain. fever, chill, cough, SOB Objective - Vital Signs/Intake & Output Intake & Output: Intake & Output 01/11/19 01/12/19 01/13/19 01/14/19 23:59 23:59 23:59 23:59 Intake Total 5637.5 3338.333 4703.333 2940.0 Output Total 205 2500 2800 1975 Balance 3587.5 274.953 2492.333 965.0 - Objective General Appearance: positive: No acute distress, Alert. negative: Lethargic Eyes Bilateral: positive: Normal inspection, PERRL, No lid inflammation, Conjunctivae nml ENT: positive: ENT inspection nml, Pharynx nml, No signs of dehydration. negative: Purulent nasal drainage, Pharyngeal erythema, Oral lesions Neck: positive: Nml inspection, Thyroid nml, No JVD, Trachea midline. negative: Thyromegaly, Lymphadenopathy (R), Lymphadenopathy (L), Stiff neck, Swelling/bruising, Tracheal deviation Respiratory: positive: Chest non-tender, No respiratory distress, Breath sounds nml. negative: Wheezes, Rales, Rhonchi Cardiovascular: positive: Regular rate & rhythm, No murmur, No gallop. negative: Irregularly irregular, Extrasystoles, Tachycardia, Bradycardia, JVD present, Systolic murmur, Diastolic murmur Peripheral Pulses: 2+ Radial (R), 2+ Radial (L), 2+ Dorsalis pedis (R), 2+ Dorsalis pedis (L) Abdomen: positive: Non-tender, No organomegaly, Nml bowel sounds, No distention. negative: Tenderness, Guarding, Rebound Back: positive: Nml inspection. negative: CVA tenderness (R), CVA tenderness (L) Skin: positive: Color nml, No rash, Warm, Dry. negative: Cyanosis, Diaphoresis, Pallor Extremities: positive: Non-tender, Full ROM, Nml appearance. negative: Calf tenderness, Joint swelling, Cordell's sign/cords Neurologic/Psychiatric: positive: Oriented x3, Motor nml, Sensation nml. negative: Weakness, Sensory loss, Facial droop, Slurred/abnml speech, Depressed mood/affect - Lab Results Fish Bones: 01/14/19 06:15 01/14/19 06:15 Other Labs: Lab Results x24hrs 01/14/19 01/14/19 01/14/19 Range/Units 11:26 07:19 06:15 WBC (4.8-10.8) x10^3/uL RBC (4.70-6.10) 10^6/uL Hgb (14.0-18.0) g/dL Hct (42.0-52.0) % MCV (80.0-94.0) fL MCH (27.0-31.0) pg MCHC (32.0-36.0) g/dL RDW (12.0-15.0) % Plt Count (130-450) 10^3/uL MPV (7.4-11.4) fL Neut # (Auto) (1.5-6.6) 10^3/uL Lymph # (Auto) (1.5-3.5) 10^3/uL [place] # (Auto) (0.0-1.0) 10^3/uL Eos # (Auto) (0.0-0.7) 10^3/uL Baso # (Auto) (0.0-0.1) 10^3/uL Absolute Nucleated RBC x10^3/uL Nucleated RBC % /100WBC Sodium 134 L (135-145) mmol/L Potassium 3.8 (3.5-5.0) mmol/L Chloride 100 L (101-111) mmol/L Carbon Dioxide 21 (21-32) mmol/L Anion Gap 13.0 (6-13) BUN 7 (6-20) mg/dL Creatinine 0.6 (0.6-1.2) mg/dL Estimated GFR (MDRD) 172 (>89) Glucose 152 H (70-100) mg/dL POC Whole Bld Glucose 126 H 140 H (70 - 100) mg/dL Calcium 8.7 (8.5-10.3) mg/dL 01/14/19 01/13/19 01/13/19 Range/Units 06:15 20:56 16:32 WBC 5.8 (4.8-10.8) x10^3/uL RBC 4.44 L (4.70-6.10) 10^6/uL Hgb 12.9 L (14.0-18.0) g/dL Hct 38.0 L (42.0-52.0) % MCV 85.6 (80.0-94.0) fL MCH 29.0 (27.0-31.0) pg MCHC 33.9 (32.0-36.0) g/dL RDW 13.8 (12.0-15.0) % Plt Count 179 (130-450) 10^3/uL MPV 7.7 (7.4-11.4) fL Neut # (Auto) 4.9 (1.5-6.6) 10^3/uL Lymph # (Auto) 0.5 L (1.5-3.5) 10^3/uL [place] # (Auto) 0.4 (0.0-1.0) 10^3/uL Eos # (Auto) 0.0 (0.0-0.7) 10^3/uL Baso # (Auto) 0.0 (0.0-0.1) 10^3/uL Absolute Nucleated RBC 0.00 x10^3/uL Nucleated RBC % 0.0 /100WBC Sodium (135-145) mmol/L Potassium (3.5-5.0) mmol/L Chloride (101-111) mmol/L Carbon Dioxide (21-32) mmol/L Anion Gap (6-13) BUN (6-20) mg/dL Creatinine (0.6-1.2) mg/dL Estimated GFR (MDRD) (>89) Glucose (70-100) mg/dL POC Whole Bld Glucose 236 H 154 H (70 - 100) mg/dL Calcium (8.5-10.3) mg/dL ABX Reporting Has patient been on IV antibiotics over the past 48 hours?: No Sepsis Event Note (H) - Evaluation Current Stage of Sepsis: Ruled out Assessment/Plan - Problem List (1) GI bleeding Impression: resolved, pt denies. HGB is stable. (2) Intractable nausea and vomiting 01/13 nurse report pt tolerate diet anti-emesis with PRN schedule continue IVF of NS 01/12 pt report he has nausea but no vomiting will advance pt's diet as he tolerate anti-emesis with PRN schedule continue IVF of NS 01/11 switch clear diet, let bowel have rest, advance diet as tolerate schedule Reglan discuss with nurse, add compazine for pt, on time give it to pt when pt has N/V continue IVF of NS pt still complain of N/V continue anti-emesis, add Compazine PRN continue IVF of NS (3) Abdominal pain 01/13 pt has Bentyl as PRN for pain control Tylenol PRN 01/12 pt understands that our Hospitalist team is not able to prescribed narcotics or benzodiazepines as Ms Ríos admitted to him pt has no [place] in his home medication pt has Bentyl as PRN for pain control Tylenol PRN CT of abdomen reveals no acute findings pt still continue abdominal pain, add Bentyl schedule pt also complain of diffused abdominal pain continue pain control order CT of abdomen, because he continue complain of abdominal pain since he was admitted (4) Diabetes mellitus, insulin-dependent (IDDM or type I) stable, continue Lantus QPM/QAM continue slide scale carbo controlled diet (5) Non compliance with medical treatment Impression: advise pt for medical compliance (6) Polysubstance abuse advise pt quit illicit drug
--- NOTE | 2019-01-14 15:26 | Discharge Plan ---
Discharge Plan Disposition: Home, Self Care Condition: Poor Prescriptions: HYDROcod/ACETAM 5/325 [[place] 5/325] 1 each PO Q6H PRN #10 tablet PRN Reason: Pain Diet: Diabetic Activity Restrictions: Activity as Tolerated Shower Restrictions: No (fall precaution) Instruction Topics: Acetaminophen Hydrocodone tablets or capsules Additional Instructions or Follow Up instructions: you may followup your PCP in one week. After treatment, you have no more nausea and vomiting. [place] is prescribed for abdominal pain. Please followup your PCP for your pain management plan.your glucose is good controlled when you are given 20 unit of Lantus at the night in hospital, please keep the insulin regimen. Should your symptoms return or worsen, you may present ER or call 911 for help. No Smoking: If you smoke, Please STOP! Call for help. Follow-up with: Ailin Kumar DNP [Primary Care Provider] -
[2019-01-14 15:43] VITALS: BP 109/70
--- NOTE | 2019-01-14 15:48 | DISCHARGE SUMMARY ---
Discharge Summary Discharge Date: 01/14/19 Discharging Provider: LOPEZ Primary Care Provider: Dr. Onofre Condition at Discharge: Poor Discharge Disposition: 01 Home, Self Care Discharge Facility Name: home - DIAGNOSES Admission Diagnoses: (1) GI bleeding (2) Intractable nausea and vomiting (3) Acute blood loss anemia (4) Abdominal pain (5) Diabetes mellitus, insulin-dependent (IDDM or type I) (6) Non compliance with medical treatment (7) Polysubstance abuse (8) MRSA (methicillin resistant Staphylococcus aureus) septicemia Discharge Diagnoses with Status of Each Condition: 1) GI bleeding (2) Intractable nausea and vomiting (3) Acute blood loss anemia (4) Abdominal pain (5) Diabetes mellitus, insulin-dependent (IDDM or type I) (6) Non compliance with medical treatment (7) Polysubstance abuse (8) MRSA (methicillin resistant Staphylococcus aureus) septicemia - [facility] History of Present Illness: refer from Ms. Ríos's HPI on 01/08/19 for pt as the following Thomas Kearney is an ill appearing 18-year male who is well known to this hospital and has a past medical history of poorly controlled diabetes mellitus type 1, poor social support, protein calorie malnutrition, polysubstance abuse, right e ye cellulitis, insomnia, diabetic peripheral neuropathy, gastroparesis, neurogenic bladder, urinary retention, medical non-compliance, passive suicidal ideation, major depressive disorder, GERD, sepsis requiring IV therapy, and chronic abdominal pain. The patient was brought in via EMS for his usual nausea, vomiting, and abdominal pain. He states that this acutely started around 0300 AM just after consuming chicken and rice. He states that he has had dark, tarry stools for the past several days, but does not think that the consistency has changed. While still in the ED he was witnessed wretching into an emesis bag, which was occult positive. Labs show anemia with an H/H of 13.6/41.2, normal low WBC count at 4.7, sodium of 133, potassium of 3.2, chloride of 95, anion gap of 14, creatinine of 0.6, glucose of 343, bili of 0.6, normal troponin of 0.04, VBG with a pH of 7.47, and CO2 32.1, lactic acid of 2.5. Urine tox screen was positive for opiates, amphetamines, and cocaine. Vital signs; temp of 36.7, pulse 128, respirations 18, blood pressure of 123/96, and 100% oxygen on room air. On exam, he understands that our Hospitalist team is not able to prescribed narcotics or benzodiazepines, but requests IV benadryl. - HOSPITAL COURSE Hospital Course: 1) GI bleeding when pt was asked if he had GI bleeding, he denies.There is No any episode in hospital. HGB is stable. Pt had a scopy on 03/14 which was unremarkable. (2) Intractable nausea and vomiting resolved. pt request d/c to home. pt tolerate diet, he has no more N/V. (3) Acute blood loss anemia when pt was asked if he had GI bleeding, he denies.There is No any episode in hospital. HGB is stable. Pt had a scopy on 03/14 which was unremarkable. (4) Abdominal pain CT of abdomen is unremarkable. This is his chronic on and off issue, followup PCP for management. pt is prescribed 10 pill of [place] to release his pain. (5) Diabetes mellitus, insulin-dependent (IDDM or type I) pt was given 20 unit of Lantus plus slide scale at hospital. His glucose level is stable. Pt's home lantus is switched to Lantus 20 QPM. pt state he had enough Lantus at home (6) Non compliance with medical treatment advise pt for medical compliance (7) Polysubstance abuse advise pt quit illicit drugs (8) MRSA (methicillin resistant Staphylococcus aureus) septicemia resolved. pt has no complaint. - ALLERGIES Allergies/Adverse Reactions: Allergies Allergy/AdvReac Type Severity Reaction Status Date / Time No Known Drug Allergies Allergy Verified 01/08/19 08:01 - MEDICATIONS Home Medications: Ambulatory Orders Medication Instructions Recorded Confirmed Dicyclomine [Bentyl] 20 mg PO DAILY PRN 11/28/18 01/08/19 Fluoxetine HCl 40 mg PO DAILY PRN 11/28/18 01/08/19 Gabapentin 900 mg PO QPM PRN 11/28/18 01/08/19 Quetiapine Fumarate [Quetiapine 50 mg PO QPM PRN 11/28/18 01/08/19 Fumarate ER] Insulin Aspart [NovoLOG] 0 - 7 units SUBQ TIDWM PRN 01/08/19 01/08/19 HYDROcod/ACETAM 5/325 [[place] 5/325] 1 each PO Q6H PRN #10 tablet 01/14/19 Insulin Glargine [Lantus Solostar] 20 units SUBQ QPM #0 01/14/19 01/08/19 - PHYSICAL EXAM AT DISCHARGE General Appearance: positive: No acute distress, Alert. negative: Lethargic Eyes Bilateral: positive: Normal inspection, PERRL, No lid inflammation, Conjunctivae nml ENT: positive: ENT inspection nml, Pharynx nml, No signs of dehydration. negative: Purulent nasal drainage, Pharyngeal erythema, Oral lesions Neck: positive: Nml inspection, Thyroid nml, No JVD, Trachea midline. negative: Thyromegaly, Lymphadenopathy (R), Lymphadenopathy (L), Stiff neck, Swelling/bruising, Tracheal deviation Respiratory: positive: Chest non-tender, No respiratory distress, Breath sounds nml. negative: Wheezes, Rales, Rhonchi Cardiovascular: positive: Regular rate & rhythm, No murmur, No gallop. negative: Irregularly irregular, Extrasystoles, Tachycardia, Bradycardia, JVD present, Systolic murmur, Diastolic murmur Peripheral Pulses: positive: 2+ Abdomen: positive: Non-tender, No organomegaly, Nml bowel sounds, No distention. negative: Tenderness, Guarding, Rebound Back: positive: Nml inspection. negative: CVA tenderness (R), CVA tenderness (L) Skin: positive: Color nml, No rash, Warm, Dry. negative: Cyanosis, Diaphoresis, Pallor Extremities: positive: Non-tender, Full ROM, Nml appearance. negative: Calf tenderness, Joint swelling, Cordell's sign/cords Neurologic/Psychiatric: positive: Oriented x3, Motor nml, Sensation nml. ne gative: Weakness, Sensory loss, Facial droop, Slurred/abnml speech, Depressed mood/affect - LABS Result Diagrams: 01/14/19 06:15 01/14/19 06:15 - SEPSIS Current Stage of Sepsis: Ruled out - FOLLOW UP Follow Up: you may followup your PCP in one week. After treatment, you have no more nausea and vomiting. [place] is prescribed for abdominal pain. Please followup your PCP for your pain management plan.your glucose is good controlled when you are given 20 unit of Lantus at the night in hospital, please keep the insulin regimen. Should your symptoms return or worsen, you may present ER or call 911 for help. - TIME SPENT Time Spent in Discharge (Minutes): 60
[2019-01-14] MEDS ORDERED: QUEtiapine 25 MG TABLET PO SCH (21:00)
== END 2019-01-14 17:10 | disposition home or self-care (01) | DRG 74 ==
LOC: EDUNIT# → ED 07:56 → MS2 13:47
PROVIDERS: ADMIT Nurse Practitioner; ATTEND Nurse Practitioner Gerontology
DX: E10.43 Type 1 diabetes mellitus with diabetic autonomic (poly)neuropathy (principal); D62 Acute posthemorrhagic anemia; E87.2 Acidosis; E10.65 Type 1 diabetes mellitus with hyperglycemia; K31.84 Gastroparesis; Z79.4 Long term (current) use of insulin; N31.9 Neuromuscular dysfunction of bladder, unspecified; F32.9 Major depressive disorder, single episode, unspecified; F41.9 Anxiety disorder, unspecified; K29.70 Gastritis, unspecified, without bleeding; Z91.19 Patient's noncompliance with other medical treatment and regimen; K52.9 Noninfective gastroenteritis and colitis, unspecified; F19.10 Other psychoactive substance abuse, uncomplicated; K21.9 Gastro-esophageal reflux disease without esophagitis; R33.9 Retention of urine, unspecified; E87.6 Hypokalemia
CPT/HCPCS: 36415; 51701; 74177; 80048; 80053; 80306; 81003; 82009; 82803; 83036; 83605; 83690; 83735; 84100; 84484; 85014; 85018; 85025; 99284; 99285; A9270; J0131; J1200; J1815; J2060; J2765; J7120; Q9967; 81001; 87086

== ENCOUNTER 2019-01-16 11:42 | Outpatient (CLI) | payer MEDICAID | END 2019-01-16 11:43 | disposition critical access hospital (66) | LOC: EMS 11:42 | PROVIDERS: ATTEND Surgery | DX: R52 Pain, unspecified (principal); R53.1 Weakness; R11.0 Nausea; R07.1 Chest pain on breathing | CPT/HCPCS: A0425; A0427; A0999 ==

== ENCOUNTER 2019-01-16 12:01 | Inpatient (IN) | payer MEDICAID ==
[2019-01-16] MEDS ORDERED: HYDROmorphone 1 MG/ML CARPUJECT IVP STA (12:09)
[2019-01-16] MEDS ORDERED: SODIUM CHLORIDE 0.9% 1,000 ML IV ONE (12:09)
--- NOTE | 2019-01-16 12:12 | ED Physician Documentation ---
PD HPI ABD PAIN - Stated complaint Stated Complaint: PAIN - History obtained from History obtained from: Patient, EMS - History of Present Illness Timing - onset: Other (This is a 18-year-old gentleman with type 1 diabetes. He had multiple complications. He got out of the hospital just a couple of days ago for DKA. That discharge summary mentions MRSA sepsis. I do not see blood cultures on that visit so I am not quite sure how that diagnosis was made. Anyway just after getting home a couple of days ago he developed worsening and severe body pain which seems to be focused in the chest and abdomen and is worse with deep breathing. He has been vomiting but denies any changes in his bowel movements. He had a temperature of 101.5 Fahrenheit for the paramedics and a blood sugar in the 130s.) Review of Systems Ten Systems: 10 systems reviewed and negative Constitutional: reports: Fever, Chills, Myalgias, Fatigue Nose: denies: Rhinorrhea / runny nose, Congestion Throat: denies: Sore throat Cardiac: reports: Chest pain / pressure. denies: Palpitations Respiratory: reports: Cough. denies: Dyspnea GI: reports: Abdominal Pain, Nausea, Vomiting. 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 : Retention, Renal insuffiency HEENT: Other (right eye cellulitis- 11/29/18) Psych: Depression, Anxiety Musculoskeletal: None Derm: None - Past Surgical History Past Surgical History: No - Present Medications Home Medications: Ambulatory Orders Medication Instructions Recorded Confirmed Dicyclomine [Bentyl] 20 mg PO DAILY PRN 11/28/18 01/08/19 Fluoxetine HCl 40 mg PO DAILY PRN 11/28/18 01/08/19 Gabapentin 900 mg PO QPM PRN 11/28/18 01/08/19 Quetiapine Fumarate [Quetiapine 50 mg PO QPM PRN 11/28/18 01/08/19 Fumarate ER] Insulin Aspart [NovoLOG] 0 - 7 units SUBQ TIDWM PRN 01/08/19 01/08/19 HYDROcod/ACETAM 5/325 [[place] 5/325] 1 each PO Q6H PRN #10 tablet 01/14/19 Insulin Glargine [Lantus Solostar] 20 units SUBQ QPM #0 01/14/19 01/08/19 - Allergies Allergies/Adverse Reactions: Allergies Allergy/AdvReac Type Severity Reaction Status Date / Time No Known Drug Allergies Allergy Verified 01/16/19 12:12 - Living Situation Living Situation: reports: With spouse/s.o. - Social History Does the pt smoke?: No Smoking Status: Never smoker Does the pt drink ETOH?: Yes Does the pt have substance abuse?: Yes - Immunizations Immunizations are current?: Yes - POLST Patient has POLST: No POLST Status: Full Code PD ED PE NORMAL - Vitals Vital signs reviewed: Yes (Tachycardic) - General General: Alert and oriented X 3, Other (He appears uncomfortable, moaning a lot and clutching his abdomen.) - HEENT HEENT: PERRL, Pharynx benign - Neck Neck: Supple, no meningeal sign, No bony TTP - Cardiac Cardiac: Other (Tachycardic but regular without murmur) - Respiratory Respiratory: No respiratory distress, Other (Diminished throughout but that seems to be from splinting) - Abdomen Abdomen: Normal bowel sounds, Soft, Other (Mild diffuse tenderness which he seems distractible from) - Back Back: No CVA TTP, No spinal TTP - Derm Derm: Normal color, Warm and dry - Extremities Extremities: No edema, No calf tenderness / cord - Neuro 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, Normal speech - Psych Psych: Normal mood, Normal affect Results - Vitals Vitals: Vital Signs - 24 hr 01/16/19 01/16/19 12:08 12:12 Temperature 38.1 C H 38.1 C H Heart Rate 129 H 125 H Respiratory 20 22 Rate Blood Pressure 113/75 113/75 O2 Saturation 100 99 Oxygen O2 Source Room air - EKG (time done) 1223 Rate: Rate (enter#) (127) Rhythm: Sinus tachycardia Eleanor: Normal Intervals: Normal IA QRS: Normal Ischemia: Normal ST segments Computer interpretation: Agree with computer - Labs Labs: Laboratory Tests 01/16/19 01/16/19 01/16/19 12:31 12:31 12:31 WBC 10.6 RBC 4.49 L Hgb 12.6 L Hct 38.0 L MCV 84.7 MCH 28.0 MCHC 33.0 RDW 13.3 Plt Count 176 MPV 7.4 Neut # (Auto) Not Reportable Lymph # (Auto) Not Reportable [place] # (Auto) Not Reportable Eos # (Auto) Not Reportable Baso # (Auto) Not Reportable Absolute Nucleated RBC Not Reportable Total Counted 100 Band Neuts % (Manual) 13 H Abnorm Lymph % (Manual) 0 Nucleated RBC % Not Reportable Neutrophils # (Manual) 9.2 H Lymphocytes # (Manual) 0.6 L Monocytes # (Manual) 0.7 Eosinophils # (Manual) 0.0 Basophils # (Manual) 0.0 Differential Comment MANUAL DIFFERENTIAL WBC Morphology 1+ DOHLE BODIES Sodium 130 L Potassium 2.9 L Chloride 93 L Carbon Dioxide 21 Anion Gap 16.0 H BUN 9 Creatinine 0.8 Estimated GFR (MDRD) 123 Glucose 155 H Lactic Acid Calcium 8.9 Total Bilirubin 1.0 AST 14 ALT 11 Alkaline Phosphatase 81 Troponin I < 0.04 Total Protein 7.6 Albumin 3.3 Globulin 4.3 H Albumin/Globulin Ratio 0.8 L Lipase 15 L Urine Color Urine Clarity Urine pH Ur Specific [place] Urine Protein Urine Glucose (UA) Urine Ketones Urine Occult Blood Urine Nitrite Urine Bilirubin Urine Urobilinogen Ur Leukocyte Esterase Urine RBC Urine WBC Ur Epithelial Cells Ur Squamous Epith Cells Amorphous Sediment Urine Bacteria Ur Microscopic Review Urine Culture Comments Salicylates < 6.0 Urine Opiates Screen Ur Oxycodone Screen Urine Methadone Screen Ur Propoxyphene Screen Acetaminophen < 10 L Ur Barbiturates Screen Ur Tricyclics Screen Ur Phencyclidine Scrn Ur Amphetamine Screen U Methamphetamines Scrn U Benzodiazepines Scrn Urine Cocaine Screen U Cannabinoids Screen Ethyl Alcohol < 5.0 01/16/19 01/16/19 12:31 13:10 WBC RBC Hgb Hct MCV MCH MCHC RDW Plt Count MPV Neut # (Auto) Lymph # (Auto) [place] # (Auto) Eos # (Auto) Baso # (Auto) Absolute Nucleated RBC Total Counted Band Neuts % (Manual) Abnorm Lymph % (Manual) Nucleated RBC % Neutrophils # (Manual) Lymphocytes # (Manual) Monocytes # (Manual) Eosinophils # (Manual) Basophils # (Manual) Differential Comment WBC Morphology Sodium Potassium Chloride Carbon Dioxide Anion Gap BUN Creatinine Estimated GFR (MDRD) Glucose Lactic Acid 1.0 Calcium Total Bilirubin AST ALT Alkaline Phosphatase Troponin I Total Protein Albumin Globulin Albumin/Globulin Ratio Lipase Urine Color YELLOW Urine Clarity SL. CLOUDY Urine pH 6.0 Ur Specific [place] <=1.005 Urine Protein TRACE Urine Glucose (UA) 100 H Urine Ketones 15 H Urine Occult Blood TRACE-INTA Urine Nitrite NEGATIVE Urine Bilirubin NEGATIVE Urine Urobilinogen 0.2 (NORMAL) Ur Leukocyte Esterase MODERATE H Urine RBC 6-10 H Urine WBC 11-25 H Ur Epithelial Cells RARE Renal Tubular Ur Squamous Epith Cells RARE Squamous Amorphous Sediment Marked Urine Bacteria Many H Ur Microscopic Review INDICATED Urine Culture Comments INDICATED Salicylates Urine Opiates Screen NEGATIVE Ur Oxycodone Screen NEGATIVE Urine Methadone Screen NEGATIVE Ur Propoxyphene Screen NEGATIVE Acetaminophen Ur Barbiturates Screen NEGATIVE Ur Tricyclics Screen NEGATIVE Ur Phencyclidine Scrn NEGATIVE Ur Amphetamine Screen NEGATIVE U Methamphetamines Scrn NEGATIVE U Benzodiazepines Scrn POSITIVE H Urine Cocaine Screen NEGATIVE U Cannabinoids Screen NEGATIVE Ethyl Alcohol - Rads (name of study) CTPA and A/P Radiology: EMP read contemporaneously (No PE. He does have increased bilateral hydronephrosis and patchy cortical enhancement of the right kidney suspicious for pyelonephritis or edema with a dilated urinary bladder.) PD MEDICAL DECISION MAKING - ED course ED course: 18-year-old type I diabetic presents with all over body pain and fever and tachycardia. CTPA done given the chest pain and recent admission it was negative, CT of the abdomen done notable for worsening normal neurogenic bladder with a concern for bilateral hydronephrosis and pyelonephritis. This is corroborated when a Orellana was placed in a 2200 out and an infected urine. Spoke with Dr. Schmidt for admission and we agreed on Zosyn. Departure - Departure Disposition: [facility] DC/Xfer Clinical Impression: Urinary retention, Hypokalemia, Neurogenic bladder, Pyelonephritis Diabetes type 1, uncontrolled Qualifiers: Glycemic state: with hypoglycemia Coma presence: without coma Qualified Code(s): E10.649 - Type 1 diabetes mellitus with hypoglycemia without coma Condition: Stable
[2019-01-16] MEDS ORDERED: IOVERSOL 320 100 ML VIAL IVP ONE ×2 (12:23→16:11)
[2019-01-16 12:41] LABS: BASOPHILS % (AUTO) 0.3 %; HGB - HEMOGLOBIN 12.6 g/dL (14.0-18.0); MEAN CORPUSCULAR VOLUME 84.7 fL (80.0-94.0); MEAN PLATELET VOLUME 7.4 fL (7.4-11.4); NEUTROPHILS % (AUTO) 84.7 %; PLT - PLATELET COUNT 176 10^3/uL (130-450); RED BLOOD COUNT 4.49 10^6/uL (4.70-6.10); RED CELL DISTRIBUTION WIDTH 13.3 % (12.0-15.0); WHITE BLOOD COUNT 10.6 x10^3/uL (4.8-10.8)
[2019-01-16] MEDS ORDERED: diphenhydrAMINE INJ 50 MG/ML VIAL IVP STA (12:42)
[2019-01-16 12:43] LABS: ABNORMAL LYMPHS % (MANUAL) 0 %
--- NOTE | 2019-01-16 12:43 | XRAY Report ---
Reason: chest pain fever Procedure Date: 01/16/2019 Accession Number: [id number] / [id number] Procedure: XR - Chest 1 View X-Ray CPT Code: 48475 FULL RESULT: EXAM: CHEST RADIOGRAPHY EXAM DATE: 01/16/2019 12:20 PM. CLINICAL HISTORY: Chest pain fever. COMPARISON: CHEST FOR LINE PLACEMENT 11/30/2018 3:33 PM. TECHNIQUE: 1 view. FINDINGS: Lungs/Pleura: No focal opacities evident. No pleural effusion. No pneumothorax. Mediastinum: Within exam limitations, the cardiomediastinal contour is normal. Other: None. IMPRESSION: No acute cardiopulmonary abnormality. RADIA
[2019-01-16 12:58] LABS: ACETAMINOPHEN < 10 ug/mL (10-30); ALBUMIN 3.3 g/dL (3.2-5.5); ALBUMIN/GLOBULIN RATIO 0.8 (1.0-2.2); ALKALINE PHOSPHATASE 81 IU/L (42-121); ALT ALANINE AMINOTRANSFERASE 11 IU/L (10-60); AST ASPARTATE AMINOTRANSFERASE 14 IU/L (10-42); BUN - BLOOD UREA NITROGEN 9 mg/dL (6-20); CALCIUM 8.9 mg/dL (8.5-10.3); CARBON DIOXIDE - CO2 21 mmol/L (21-32); CHLORIDE 93 mmol/L (101-111); CREATININE 0.8 mg/dL (0.6-1.2); GFR - MDRD 123 (>89); GLUCOSE 155 mg/dL (70-100); LIPASE 15 U/L (22-51); SALICYLATE < 6.0 mg/dL; SODIUM 130 mmol/L (135-145); TOTAL PROTEIN 7.6 g/dL (6.7-8.2)
[2019-01-16 13:01] LABS: BAND NEUTROPHILS % (MANUAL) 13 %; LYMPHOCYTES # (MANUAL) 0.6 10^3/uL (1.5-3.5); LYMPHOCYTES % (MANUAL) 6 %; MONOCYTES # (MANUAL) 0.7 10^3/uL (0.0-1.0); NEUTROPHILS # (MANUAL) 9.2 10^3/uL (1.5-6.6); NEUTROPHILS % (MANUAL) 74 %
[2019-01-16 13:02] LABS: DIFFERENTIAL COMMENT MANUAL DIFFERENTIAL
[2019-01-16] MEDS ORDERED: LIDOCAINE 2% URO-JET 5 ML SYRINGE UR STA (13:07)
--- NOTE | 2019-01-16 13:14 | CT Report ---
Reason: PE protocol, chest pain, just hospitalized Procedure Date: 01/16/2019 Accession Number: [id number] / [id number] Procedure: CT - ANGIO CHEST W/WO CPT Code: FULL RESULT: EXAM: CT ANGIOGRAM CHEST EXAM DATE: 01/16/2019 12:58 PM. CLINICAL HISTORY: Chest pain COMPARISON: None. TECHNIQUE: Routine helical imaging was performed through the chest in the pulmonary arterial phase. IV Contrast: OPTI 320 90mL. Reconstructions: Coronal 3-D MIP reconstructions.Sagittal and coronal. In accordance with CT protocol optimization, one or more of the following dose reduction techniques were utilized for this exam: automated exposure control, adjustment of mA and/or KV based on patient size, or use of iterative reconstructive technique. FINDINGS: Pulmonary Arteries: Diagnostic quality: Adequate through the segmental arteries. Negative for acute pulmonary embolism. The main pulmonary artery is normal in size. Lungs/Pleura: No consolidation, nodules, or edema. No effusions or pneumothorax. Mediastinum: Normal. No cardiac enlargement or adenopathy. Thoracic Aorta: Unremarkable. Upper Abdomen: Dictated in separate report Other: None. IMPRESSION: 1. Negative for pulmonary embolism. 2. No other significant acute process within the chest. RADIA
--- NOTE | 2019-01-16 13:19 | CT Report ---
Reason: IV only, abd pain, fever Procedure Date: 01/16/2019 Accession Number: [id number] / [id number] Procedure: CT - Abdomen/Pelvis W CPT Code: FULL RESULT: EXAM: CT ABDOMEN AND PELVIS EXAM DATE: 01/16/2019 12:58 PM. CLINICAL HISTORY: IV only, abd pain, fever. COMPARISONS: ABDOMEN/PELVIS W/ 01/10/2019 9:01 PM. TECHNIQUE: Routine helical CT imaging was performed through the abdomen and pelvis. IV contrast: OPTI 320 90mL. Enteric contrast: No. Reconstructions: Coronal and sagittal. In accordance with CT protocol optimization, one or more of the following dose reduction techniques were utilized for this exam: automated exposure control, adjustment of mA and/or KV based on patient size, or use of iterative reconstructive technique. FINDINGS: Lung Bases: Unremarkable. Liver: Normal. No masses. Gallbladder/Bile Ducts: Unremarkable. Spleen: Normal. Pancreas: Normal. Adrenal Glands: Normal. Kidneys: There is increased pelviectasis of the right kidney. The right renal pelvis measures 49 mm and previously 33 mm. There is caliectasis. There is patchy hypoenhancement of the right renal cortex without a focal renal mass. The right ureter is dilated down to the pelvis. The distal right ureter is not well visualized. No obstructing stones. There is increased pelvic caliectasis of the left kidney. Left renal pelvis measures 33 mm and previously 17 mm. The proximal to mid left ureter is dilated. No stones visualized. There is normal enhancement of the cortex of the left kidney. Peritoneal Cavity/Bowel: Normal. No free fluid, free air or adenopathy. No masses or acute inflammatory process. Pelvic Organs: Urinary bladder is fluid-filled and appears dilated. Bladder measures 143 x 205 x 114 mm. Vasculature: No aneurysms or other significant abnormality. Bones: No significant abnormality. Other: None. IMPRESSION: 1. Bilateral hydronephrosis is increased. Moderate to severe right and mild to moderate left hydronephrosis. No obstructing ureter stones. 2. New patchy cortical hypoenhancement right kidney. Suspicious for pyelonephritis. Differential diagnosis includes edema secondary to hydronephrosis. 3. Dilated urinary bladder RADIA
[2019-01-16] MEDS ORDERED: POTASSIUM BICARB 25 MEQ TABLET PO STA (13:26)
[2019-01-16] MEDS ORDERED: KETOROLAC 30 MG/ML VIAL IVP STA (13:31)
[2019-01-16 13:32] LABS: MUDS CUTOFF CONCENTRATIONS CUTOFF CONC BELOW:
[2019-01-16 13:34] LABS: BILIRUBIN,URINE NEGATIVE (NEGATIVE); GLUCOSE, URINE (UA) 100 mg/dL (NEGATIVE); KETONES,URINE (UA) 15 mg/dL (NEGATIVE); LEUKOCYTE ESTERASE, URINE MODERATE (NEGATIVE); NITRITE,URINE NEGATIVE (NEGATIVE); OCCULT BLOOD,URINE TRACE-INTA (NEGATIVE); PROTEIN,URINE TRACE mg/dL (NEGATIVE); UROBILINOGEN,URINE 0.2 (NORMAL) E.U./dL (NORMAL)
[2019-01-16 13:35] LABS: CLARITY,URINE SL. CLOUDY (CLEAR)
[2019-01-16 13:48] LABS: AMORPHOUS SEDIMENT,UR Marked /LPF; BACTERIA,URINE Many /HPF (None Seen); EPITHELIAL CELLS,UR RARE Renal Tubular /HPF (<= Few); SQUAMOUS EPITHELIAL CELL,UR RARE Squamous (<= Few)
[2019-01-16 13:50] LABS: AMPHETAMINE SCREEN,URINE NEGATIVE (NEGATIVE); COCAINE SCREEN URINE NEGATIVE (NEGATIVE); METHADONE SCREEN, URINE NEGATIVE (NEGATIVE); METHAMPHETAMINES SCREEN, URINE NEGATIVE (NEGATIVE); OPIATE SCREEN, URINE NEGATIVE (NEGATIVE); OXYCODONE SCREEN, URINE NEGATIVE (NEGATIVE); PROPOXYPHENE SCREEN, URINE NEGATIVE (NEGATIVE); TRICYCLIC ANTIDEPRESSANT,URINE NEGATIVE (NEGATIVE)
[2019-01-16 13:51] LABS: BENZODIAZEPINES SCREEN, URINE POSITIVE (NEGATIVE)
[2019-01-16] MEDS ORDERED: PIPERACILLIN/TAZOBACTAM 3.375 GM in SODIUM CHLORIDE 0.9% MINIBAG 100 ML IV STA (13:55)
[2019-01-16] MEDS ORDERED: ONDANSETRON ODT 4 MG TABLET TL PRN (14:05)
[2019-01-16] MEDS ORDERED: ONDANSETRON 4 MG/2 ML VIAL IVP PRN (14:05)
[2019-01-16] MEDS: HYDROmorphone 1 MG/ML CARPUJECT IVP PRN ×4 (15:53→22:39)
[2019-01-16] MEDS: SODIUM CHLORIDE FLUSH 0.9% 10 ML SYRINGE IVP PRN (15:54)
--- NOTE | 2019-01-16 16:31 | HISTORY & PHYSICAL EXAMINATION ---
Chief Complaint - Chief Complaint Chief Complaint: fever History of Present Illness - History of Present Illness HPI Comment/Other: Mr. Kearney is an 18-year male with a past medical history of poorly controlled diabetes mellitus type 1, poor social support, protein calorie malnutrition, polysubstance abuse, right eye cellulitis, insomnia, diabetic peripheral neuropathy, gastroparesis, neurogenic bladder, urinary retention, medical non- compliance, passive suicidal ideation, major depressive disorder, GERD, sepsis requiring IV therapy, and chronic abdominal pain, who present ER for complain of fever. Pt report he felt fever today, and ache all over his body. He report he did not feel he should go to bathroom for urination, then he has no urination from yesterday until today. He denies chest pain, cough, shortness of breath. CT of abdomen reveals bilateral hydronephrosis, moderate to severe at right, and mild to moderate at left hydronephrosis, and suspicious pyelonephritis at right kidney. Pt had Orellana in ER, which come out 2200 ml urine. UA reveal pt had UTI. pt is admitted for above medical condition. 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 Social History Notes: The patient is originally from [place] but has been living on [facility] for the last 3 years with his aunt. The patient also spent some time in [place]. Patient has had multiple hospitalizations for diabetic ketoacidosis within the last 2-3 years. Patient was diagnosed with diabetes at the age of 3. The patient is single and does not have any children. He does not smoke tobacco and rarely drinks alcohol. The patient does state he occasionally smokes marijuana but denies any other illicit drug use. - Substance History Use: Uses substance without health or social issues: Alcohol, Cannabis (pt may have hyperemesis related to cannabis, continues to smoke marijuana) - POLST Patient has POLST: No POLST Status: Full Code Meds/Allgy - Home Medications Home Medications: Ambulatory Orders Medication Instructions Recorded Confirmed Fluoxetine HCl 40 mg PO DAILY PRN 11/28/18 01/16/19 Gabapentin 900 mg PO QPM PRN 11/28/18 01/16/19 Quetiapine Fumarate [Quetiapine 50 mg PO QPM PRN 11/28/18 01/16/19 Fumarate ER] Insulin Aspart [NovoLOG] 0 - 7 units SUBQ TIDWM PRN 01/08/19 01/16/19 HYDROcod/ACETAM 5/325 [[place] 5/325] 1 each PO Q6H PRN #10 tablet 01/14/19 01/16/19 Insulin Glargine [Lantus Solostar] 20 units SUBQ QPM #0 01/14/19 01/16/19 Dicyclomine HCl 20 mg PO QID PRN 01/16/19 01/16/19 - Allergies Allergies/Adverse Reactions: Allergies Allergy/AdvReac Type Severity Reaction Status Date / Time No Known Drug Allergies Allergy Verified 01/16/19 12:12 Review of Systems - Constitutional Constitutional: reports: Fatigue, Fever, Chills. denies: Malaise, Weakness, Poor appetite, Diaphoresis, Night sweats - Eyes Eyes: denies: Pain, Irritation, Amaurosis, Blurred vision, Spots in vision, Field loss, Vision loss, Dipolpia - Ears, Nose & Throat Ears, Nose & Throat: denies: Ear pain, Hearing loss, Hearing aids, Tinnitus, Vertigo, Nasal pain, Nasal discharge, Nosebleeds, Nasal obstruction, Postnasal drainage, Dentures, Sore throat, Hoarseness - Cardiovascular Cariovascular: denies: Irregular heart rate, Palpitations, Chest pain, Edema, Lightheadedness, Syncope, Decr. exercise tolerance - Respiratory Respiratory: denies: Cough, Sputum production, Wheezing, Snoring, Hemoptysis, Orthopnea, SOB at rest, SOB with exertion - Gastrointestinal Gastrointestinal: denies: Abdominal pain, Abdominal distention, Diarrhea, Change in bowel habits, Rectal bleeding, Black stools, Bloody stools, Nausea, Vomiting, Coffee grounds emesis, Reflux/heartburn, Bloating, Poor appetite - Genitourinary Genitourinary: reports: Incontinence. denies: Dysuria, Frequency, Urgency, Hematuria, Flank pain, Nocturia, Urethral discharge - Musculoskeletal Musculoskeletal: reports: Muscle aches. denies: Muscle pain, Back pain, Stiff ness, Limited range of motion, Muscle weakness, Gout, Joint pain - Integumentary Integumentary: denies: Rash, Pruritis, Lesions, Dryness, Lumps, Acne, Pigment ch anges, Nail changes - Neurological Neurological: denies: General weakness, Focal weakness, Headache, Dizziness, Numbness, Memory problems, Pre-existing deficit, Abnormal gait, Seizures, Incoordination, Slurred speech - Psychiatric Psychiatric: denies: Depression, Anxiety, Suicidal, Delusions, Hallucinations, Homicidal - Endocrine Endocrine: denies: Polyuria, Polydypsia, Polyphagia, Intolerance to cold - Hematologic/Lymphatic Hematologic/Lymphatic: denies: Anemia, Bruising, Petechiae, Blood clots, Lymphadenopathy, Bleeding tendencies Exam - Vital Signs Reviewed Vital Signs: Yes Vital Signs: Vital Signs x48h Temp Pulse Pulse Resp BP BP Pulse Ox 01/16/19 15:20 37 C 109 H 18 104/62 99 01/16/19 15:02 36.9 C 105 H 15 109/75 99 01/16/19 14:17 37.4 C 110 H 16 108/72 99 01/16/19 12:12 38.1 C H 125 H 22 113/75 99 01/16/19 12:08 38.1 C H 129 H 20 113/75 100 - Physical Exam General Appearance: positive: No acute distress, Alert. negative: Lethargic Eyes Bilateral: positive: Normal inspection, PERRL, No lid inflammation, Conjunctivae nml ENT: positive: ENT inspection nml, Pharynx nml, No signs of dehydration. negative: Purulent nasal drainage, Pharyngeal erythema, Oral lesions Neck: positive: Nml inspection, Thyroid nml, No JVD, Trachea midline. negative: Thyromegaly, Lymphadenopathy (R), Lymphadenopathy (L), Stiff neck, Swelling/bruising, Tracheal deviation Respiratory: positive: Chest non-tender, No respiratory distress, Breath sounds nml. negative: Wheezes, Rales, Rhonchi Cardiovascular: positive: Regular rate & rhythm, No murmur, No gallop. negative: Irregularly irregular, Extrasystoles, Tachycardia, Bradycardia, JVD present, Systolic murmur, Diastolic murmur Peripheral Pulses: positive: 2+ Abdomen: positive: Non-tender, No organomegaly, Nml bowel sounds, No distention. negative: Tenderness, Guarding, Rebound Back: positive: Nml inspection. negative: CVA tenderness (R), CVA tenderness (L) Skin: positive: Color nml, No rash, Warm, Dry. negative: Cyanosis, Diaphoresis, Pallor Extremities: positive: Non-tender, Full ROM, Nml appearance. negative: Calf tenderness, Joint swelling, Cordell's sign/cords Neurologic/Psychiatric: positive: Oriented x3, Motor nml, Sensation nml. negative: Weakness, Sensory loss, Facial droop, Slurred/abnml speech, Depressed mood/affect Sepsis Event Note (H) - Evaluation Current Stage of Sepsis: Sepsis Possible source of Sepsis: positive: Genitourinary - Sepsis Criteria Sepsis Criteria: Recorded Heart Rate greater than 90 bpm Conclusion/Plan - Problem List (1) Pyelonephritis Conclusion/Plan: pt has fever, CT of abdomen reveals hydronephrosis and right pyelonephritis start with Orellana Zosyn IVF of NS (2) Diabetes type 1, uncontrolled Conclusion/Plan: hx of uncontrolled DM1 reconcile home insulin, start slide scale, hypoglycemia protocol Qualifiers: Glycemic state: with hypoglycemia Coma presence: without coma Qualified Code(s): E10.649 - Type 1 diabetes mellitus with hypoglycemia without coma (3) Neurogenic bladder Conclusion/Plan: pt report he did not feel he need to go urine. one way for pt to resolve his problem now, on time pt go to urinate, no matter he feel or not followup urologist as out-pt now pt had Orellana (4) Hypokalemia Conclusion/Plan: K is 2.9, replace it and check (5) Hyponatremia Conclusion/Plan: Na 130 now, will start with NS of IVF, recheck - Lab Results Fish Bones: 01/16/19 12:31 01/16/19 12:31 Core Measures - Anticipated LOS I expect patient to be DC'd or transferred within 96 hours.: Yes - DVT/VTE - Prophylaxis VTE/DVT Device ordered at admit?: Yes VTE/DVT Prophylaxis med ordered at admit?: Yes
[2019-01-16] MEDS: PIPERACILLIN/TAZOBACTAM 3.375 GM in SODIUM CHLORIDE 0.9% MINIBAG 100 ML IV SCH (16:32)
[2019-01-16] MEDS ORDERED: QUEtiapine 25 MG TABLET PO PRN (16:43)
[2019-01-16] MEDS ORDERED: GABAPENTIN 300 MG CAPSULE PO PRN (16:43)
[2019-01-16] MEDS ORDERED: FLUoxetine 10 MG CAPSULE PO PRN (16:43)
[2019-01-16] MEDS ORDERED: DICYCLOMINE 10 MG CAPSULE PO PRN (16:43)
[2019-01-16] MEDS ORDERED: SODIUM CHLORIDE 0.9% 1,000 ML IV SCH (17:00)
[2019-01-16] MEDS: INSULIN ASPART 300 UNIT/3 ML PEN SUBQ SCH ×2 (17:39→22:33)
[2019-01-16] MEDS: SODIUM CHLORIDE FLUSH 0.9% 10 ML SYRINGE IVP SCH (17:46)
[2019-01-16] MEDS ORDERED: POTASSIUM CHLORIDE 20 MEQ TABLET PO ONE (18:00)
[2019-01-16] MEDS ORDERED: INSULIN GLARGINE 300 UNIT/3 ML PEN SUBQ SCH (21:00)
[2019-01-17] MEDS: PIPERACILLIN/TAZOBACTAM 3.375 GM in SODIUM CHLORIDE 0.9% MINIBAG 100 ML IV SCH ×3 (00:51→16:56)
[2019-01-17] MEDS: HYDROmorphone 1 MG/ML CARPUJECT IVP PRN ×6 (00:53→19:27)
[2019-01-17] MEDS: SODIUM CHLORIDE FLUSH 0.9% 10 ML SYRINGE IVP SCH ×3 (01:15→16:16)
[2019-01-17] MEDS: SODIUM CHLORIDE 0.9% 1,000 ML IV SCH ×5 (01:16→22:24)
[2019-01-17] MEDS: oxyCODONE 5 MG TABLET PO PRN ×4 (04:56→22:02)
[2019-01-17 06:01] LABS: BASOPHILS % (AUTO) 0.2 %; EOSINOPHILS # (AUTO) 0.1 10^3/uL (0.0-0.7); EOSINOPHILS % (AUTO) 0.5 %; HGB - HEMOGLOBIN 10.8 g/dL (14.0-18.0); LYMPHOCYTES # (AUTO) 0.5 10^3/uL (1.5-3.5); LYMPHOCYTES % (AUTO) 5.5 %; MEAN CORPUSCULAR HEMOGLOBIN 28.1 pg (27.0-31.0); MEAN CORPUSCULAR HGB CONC 32.2 g/dL (32.0-36.0); MEAN CORPUSCULAR VOLUME 87.4 fL (80.0-94.0); MEAN PLATELET VOLUME 8.3 fL (7.4-11.4); MONOCYTES % (AUTO) 10.9 %; NEUTROPHILS # (AUTO) 7.7 10^3/uL (1.5-6.6); NEUTROPHILS % (AUTO) 82.9 %; PLT - PLATELET COUNT 146 10^3/uL (130-450); RED BLOOD COUNT 3.84 10^6/uL (4.70-6.10); RED CELL DISTRIBUTION WIDTH 13.7 % (12.0-15.0); WHITE BLOOD COUNT 9.4 x10^3/uL (4.8-10.8)
[2019-01-17 06:12] LABS: CALCIUM 8.2 mg/dL (8.5-10.3); CREATININE 0.7 mg/dL (0.6-1.2)
[2019-01-17] MEDS: SODIUM CHLORIDE FLUSH 0.9% 10 ML SYRINGE IVP PRN ×2 (07:50→13:50)
[2019-01-17] MEDS: INSULIN ASPART 300 UNIT/3 ML PEN SUBQ SCH ×4 (08:21→20:50)
[2019-01-17] MEDS ORDERED: INSULIN ASPART 300 UNIT/3 ML PEN SUBQ ONE (08:35)
[2019-01-17] MEDS: POLYETHYLENE GLYCOL 3350 17 GM PACKET PO SCH (08:38)
[2019-01-17] MEDS: diphenhydrAMINE INJ 50 MG/ML VIAL IVP PRN ×3 (09:34→22:02)
[2019-01-17] MEDS: ACETAMINOPHEN 325 MG TABLET PO PRN (10:44)
[2019-01-17] MEDS: MULTIVITAMIN W/MINERALS TABLET PO SCH (12:14)
--- NOTE | 2019-01-17 16:08 | PROVIDER PROGRESS NOTE ---
Subjective - Prog Note Date Prog Note Date: 01/17/19 - Subjective Pt reports feeling: Improved Subjective: pt report he feel some better for pain than yesterday but still had one time of fever, and complain itch on his whole body. he is not happy because dr. Lino H d/c his dilaudid. He denies chest pain, shortness of breath. Objective - Vital Signs/Intake & Output Vital Signs: Vital Signs x48h Temp Pulse Resp BP Pulse Ox 01/17/19 15:47 36.9 C 115 H 16 119/68 100 01/17/19 12:30 37.0 C 01/17/19 10:43 38.2 C H 01/17/19 10:16 129 H 16 129/70 95 Intake & Output: Intake & Output 01/14/19 01/15/19 01/16/19 01/17/19 23:59 23:59 23:59 23:59 Intake Total 2350 5978.084 Output Total 3600 4850 Balance -1250 1128.084 - Lab Results Fish Bones: 01/17/19 05:40 01/17/19 05:40 Other Labs: Lab Results x24hrs 01/17/19 01/17/19 Range/Units 05:40 05:40 WBC 9.4 (4.8-10.8) x10^3/uL RBC 3.84 L (4.70-6.10) 10^6/uL Hgb 10.8 L (14.0-18.0) g/dL Hct 33.5 L (42.0-52.0) % MCV 87.4 (80.0-94.0) fL MCH 28.1 (27.0-31.0) pg MCHC 32.2 (32.0-36.0) g/dL RDW 13.7 (12.0-15.0) % Plt Count 146 (130-450) 10^3/uL MPV 8.3 (7.4-11.4) fL Neut # (Auto) 7.7 H (1.5-6.6) 10^3/uL Lymph # (Auto) 0.5 L (1.5-3.5) 10^3/uL Powell # (Auto) 1.0 (0.0-1.0) 10^3/uL Eos # (Auto) 0.1 (0.0-0.7) 10^3/uL Baso # (Auto) 0.0 (0.0-0.1) 10^3/uL Absolute Nucleated RBC 0.01 x10^3/uL Nucleated RBC % 0.1 /100WBC Sodium 128 L (135-145) mmol/L Potassium 4.0 (3.5-5.0) mmol/L Chloride 97 L (101-111) mmol/L Carbon Dioxide 16 L (21-32) mmol/L Anion Gap 15.0 H (6-13) BUN 8 (6-20) mg/dL Creatinine 0.7 (0.6-1.2) mg/dL Estimated GFR (MDRD) 144 (>89) Glucose 433 H (70-100) mg/dL Calcium 8.2 L (8.5-10.3) mg/dL Sepsis Event Note (H) - Evaluation Current Stage of Sepsis: Sepsis Possible source of Sepsis: positive: Genitourinary - Sepsis Criteria Sepsis Criteria: Recorded Heart Rate greater than 90 bpm Assessment/Plan - Problem List (1) Pyelonephritis Impression: (1)fever pt had fever today at 38.2. pt had two tube shown gram negative bacilli, which can cause pt have fever continue treated with Zosyn check lactic acid blood culture IVF of NS (2)bacteremia pt is positive for gram negative bacilli in two tubes continue zosyn will followup culture and sensitivity study (3)tachycardia EKG reveals ST, it appeared from pt's infection and fever. Tylenol for fever PRN. tele monitor vital monitor (4) Pyelonephritis Conclusion/Plan: pt has fever, CT of abdomen reveals hydronephrosis and right pyelonephritis start with Orellana Zosyn IVF of NS (5) Diabetes type 1, uncontrolled Conclusion/Plan: 01/17, still has high level of glucose, increase to 30unit of Lantus QPM, and increase slide scale to middle to high level, add QAM lantus 5 units pt has hx of usage of 40 unit Lantus in the far past but recently Lantus is down to 20 units will monitor glucose level closely hx of uncontrolled DM1 reconcile home insulin, start slide scale, hypoglycemia protocol (6) Neurogenic bladder Conclusion/Plan: 01/17 will take Orellana off when pt has no fever, more stable. Set on the time and let pt urine by himself, even if he did not feel he has to go pt report he did not feel he need to go urine. one way for pt to resolve his problem now, on time pt go to urinate, no matter he feel or not followup urologist as out-pt now pt had Orellana (7) Hypokalemia Conclusion/Plan: resolved K is 2.9, replace it and check (8) Hyponatremia Na 128, pt hx of hyponatremia, it may be caused by his hyperglycemia slide scale to strictly control pt's glucose continue IVF of NS, recheck (2) Diabetes type 1, uncontrolled Qualifiers: Glycemic state: with hypoglycemia Coma presence: without coma Qualified Code(s): E10.649 - Type 1 diabetes mellitus with hypoglycemia without coma
[2019-01-17] MEDS: SACCHAROMYCES BOULARDII 250 MG CAPSULE PO SCH (16:49)
[2019-01-17] MEDS: GABAPENTIN 300 MG CAPSULE PO SCH (20:45)
[2019-01-17] MEDS ORDERED: INSULIN GLARGINE 300 UNIT/3 ML PEN SUBQ SCH (21:00)
[2019-01-18] MEDS: PIPERACILLIN/TAZOBACTAM 3.375 GM in SODIUM CHLORIDE 0.9% MINIBAG 100 ML IV SCH ×2 (01:15→08:28)
[2019-01-18] MEDS: HYDROmorphone 1 MG/ML CARPUJECT IVP PRN ×4 (01:15→19:35)
[2019-01-18] MEDS: SODIUM CHLORIDE FLUSH 0.9% 10 ML SYRINGE IVP SCH ×3 (01:22→16:39)
[2019-01-18] MEDS: oxyCODONE 5 MG TABLET PO PRN ×5 (01:30→23:59)
[2019-01-18] MEDS: INSULIN ASPART 300 UNIT/3 ML PEN SUBQ SCH ×4 (03:53→20:39)
[2019-01-18] MEDS: SODIUM CHLORIDE 0.9% 1,000 ML IV SCH ×3 (03:58→19:58)
[2019-01-18] MEDS: diphenhydrAMINE INJ 50 MG/ML VIAL IVP PRN ×2 (03:58→10:10)
[2019-01-18 05:04] LABS: BASOPHILS % (AUTO) 0.4 %; EOSINOPHILS # (AUTO) 0.2 10^3/uL (0.0-0.7); EOSINOPHILS % (AUTO) 2.7 %; HGB - HEMOGLOBIN 10.6 g/dL (14.0-18.0); LYMPHOCYTES # (AUTO) 0.6 10^3/uL (1.5-3.5); LYMPHOCYTES % (AUTO) 7.1 %; MEAN CORPUSCULAR HEMOGLOBIN 28.2 pg (27.0-31.0); MEAN CORPUSCULAR HGB CONC 32.9 g/dL (32.0-36.0); MEAN CORPUSCULAR VOLUME 85.8 fL (80.0-94.0); MEAN PLATELET VOLUME 7.7 fL (7.4-11.4); MONOCYTES # (AUTO) 0.6 10^3/uL (0.0-1.0); MONOCYTES % (AUTO) 6.7 %; NEUTROPHILS # (AUTO) 7.6 10^3/uL (1.5-6.6); NEUTROPHILS % (AUTO) 83.1 %; PLT - PLATELET COUNT 158 10^3/uL (130-450); RED BLOOD COUNT 3.77 10^6/uL (4.70-6.10); RED CELL DISTRIBUTION WIDTH 13.4 % (12.0-15.0); WHITE BLOOD COUNT 9.1 x10^3/uL (4.8-10.8)
[2019-01-18 05:07] LABS: CALCIUM 8.4 mg/dL (8.5-10.3); CREATININE 0.7 mg/dL (0.6-1.2)
[2019-01-18] MEDS: ACETAMINOPHEN 325 MG TABLET PO PRN ×2 (05:38→13:37)
[2019-01-18] MEDS ORDERED: INSULIN REGULAR HUMAN 100 UNIT/1 ML 10 ML MDV SUBQ STA (06:35)
[2019-01-18] MEDS ORDERED: POTASSIUM CHLORIDE 20 MEQ TABLET PO SCH (07:13)
[2019-01-18] MEDS ORDERED: INSULIN REGULAR HUMAN 100 UNIT/1 ML 10 ML MDV ONE (07:22)
[2019-01-18] MEDS: NYSTATIN 500000 UNITS/5 ML UDC PO SCH ×5 (07:22→20:50)
[2019-01-18] MEDS ORDERED: INSULIN GLARGINE 300 UNIT/3 ML PEN SUBQ SCH ×2 (08:00→21:00)
[2019-01-18] MEDS: MULTIVITAMIN W/MINERALS TABLET PO SCH (08:27)
[2019-01-18] MEDS: SACCHAROMYCES BOULARDII 250 MG CAPSULE PO SCH ×2 (08:27→16:52)
[2019-01-18] MEDS: POLYETHYLENE GLYCOL 3350 17 GM PACKET PO SCH (08:29)
[2019-01-18] MEDS: SODIUM CHLORIDE FLUSH 0.9% 10 ML SYRINGE IVP PRN ×2 (10:11→13:38)
--- NOTE | 2019-01-18 13:16 | PROVIDER PROGRESS NOTE ---
Subjective - Prog Note Date Prog Note Date: 01/18/19 - Subjective Pt reports feeling: No change Subjective: UA culture reveals positive for Ecoli, sensitive study in today reveals resistance to Zosyn. antibiotics now is switched to Rocephin. pt report he feel not better, still has elevated temperature but no fever. pt also present tachycardia. Pt denies chest pain, shortness of breath. Current Medications - Current Medications Current Medications: Active Medications Acetaminophen (Tylenol) 650 mg PO Q4HR PRN PRN Reason: Pain 1 to 4 Last Admin: 01/18/19 13:37 Dose: 650 mg Dicyclomine HCl (Bentyl) 20 mg PO QID PRN PRN Reason: ABDOMINAL CRAMPING Last Admin: 01/17/19 03:39 Dose: 20 mg Diphenhydramine HCl (Benadryl Inj) 25 mg IVP Q6H PRN PRN Reason: Allergy Symptoms Last Admin: 01/18/19 10:10 Dose: 25 mg Gabapentin (Neurontin) 900 mg PO QPM [facility] Last Admin: 01/17/19 20:45 Dose: 900 mg Hydromorphone HCl (Dilaudid Inj Carp) 1 mg IVP Q6HR PRN PRN Reason: Pain 8 to 10 Last Admin: 01/18/19 13:37 Dose: 1 mg Sodium Chloride (Normal Saline 0.9%) 1,000 mls @ 100 mls/hr IV .Q10H [facility] Last Admin: 01/18/19 10:10 Dose: 100 mls/hr Ceftriaxone Sodium 2 gm/ (Sodium Chloride) 100 mls @ 200 mls/hr IV DAILY [facility] Insulin Aspart (Novolog) 3 - 11 unit SUBQ 0800,1200,1700,2100 SHEILA; Protocol Last Admin: 01/18/19 13:44 Dose: 3 unit Insulin Glargine (Lantus Solostar) 30 unit SUBQ QPM [facility] Last Admin: 01/17/19 20:51 Dose: 30 unit Insulin Glargine (Lantus Solostar) 5 unit SUBQ QDBREAKFAST [facility] Last Admin: 01/18/19 08:27 Dose: 5 unit Multivitamins/Minerals (Theragran M) 1 tab PO DAILYWM [facility] Last Admin: 01/18/19 08:27 Dose: 1 tab Nystatin (Mycostatin) 5 ml PO QID [facility] Last Admin: 04/24/19 08:28 Dose: Not Given Ondansetron HCl (Zofran Inj) 4 mg IVP Q6HR PRN PRN Reason: Nausea / Vomiting Ondansetron HCl (Zofran Odt) 4 mg TL Q6HR PRN PRN Reason: Nausea / Vomiting Oxycodone HCl (Roxicodone) 5 mg PO Q4HR PRN PRN Reason: Pain 5 to 7 Last Admin: 01/18/19 10:10 Dose: 5 mg Polyethylene Glycol (Miralax) 17 gm PO DAILY [facility] Last Admin: 01/18/19 08:29 Dose: Not Given Quetiapine Fumarate (Seroquel) 50 mg PO QPM PRN PRN Reason: NEEDED PER PROVIDER ORDERS Saccharomyces Boulardii (Florastor) 250 mg PO BIDWM [facility] Last Admin: 01/18/19 08:27 Dose: 250 mg Sodium Chloride (Normal Saline Flush 0.9%) 10 ml IVP PRN PRN PRN Reason: NEEDED PER PROVIDER ORDERS Last Admin: 01/18/19 13:38 Dose: 20 ml Sodium Chloride (Normal Saline Flush 0.9%) 10 ml IVP 0100,0900,1700 [facility] Last Admin: 01/18/19 08:29 Dose: Not Given Fluoxetine HCl 40 mg PO DAILY PRN 11/28/18 Gabapentin 900 mg PO QPM PRN 11/28/18 Quetiapine Fumarate [Quetiapine Fumarate ER] 50 mg PO QPM PRN 11/28/18 Insulin Aspart [NovoLOG] 0 - 7 units SUBQ TIDWM PRN 01/08/19 Dicyclomine HCl 20 mg PO QID PRN 01/16/19 Objective - Vital Signs/Intake & Output Reviewed Vital Signs: Yes Vital Signs: Vital Signs x48h Temp Pulse Resp BP Pulse Ox 01/18/19 11:19 36.8 C 105 H 16 122/74 97 01/18/19 07:40 37.1 C 115 H 16 98/66 92 01/18/19 05:43 37.8 C H 120 H 16 127/80 93 Intake & Output: Intake & Output 01/15/19 01/16/19 01/17/19 01/18/19 23:59 23:59 23:59 23:59 Intake Total 2350 8955.167 4086.167 Output Total 3606 5897 3425 Balance -1250 1105.167 661.167 - Objective General Appearance: positive: No acute distress, Alert. negative: Lethargic Eyes Bilateral: positive: Normal inspection, PERRL, No lid inflammation, Conjun ctivae nml ENT: positive: ENT inspection nml, Pharynx nml, No signs of dehydration. negative: Purulent nasal drainage, Pharyngeal erythema, Oral lesions Neck: positive: Nml inspection, Thyroid nml, No JVD, Trachea midline. negative: Thyromegaly, Lymphadenopathy (R), Lymphadenopathy (L), Stiff neck, Swelling/bruising, Tracheal deviation Respiratory: positive: Chest non-tender, No respiratory distress, Breath sounds nml. negative: Wheezes, Rales, Rhonchi Cardiovascular: positive: Regular rate & rhythm, No murmur, No gallop. negative: Irregularly irregular, Extrasystoles, Tachycardia, Bradycardia, JVD present, Systolic murmur, Diastolic murmur Peripheral Pulses: 2+ Radial (R), 2+ Radial (L), 2+ Dorsalis pedis (R), 2+ Dorsalis pedis (L) Abdomen: positive: Non-tender, No organomegaly, Nml bowel sounds, No distention. negative: Tenderness, Guarding, Rebound Back: positive: Nml inspection. negative: CVA tenderness (R), CVA tenderness (L) Skin: positive: Color nml, No rash, Warm, Dry. negative: Cyanosis, Diaphoresis, Pallor Extremities: positive: Non-tender, Full ROM, Nml appearance. negative: Calf tenderness, Joint swelling, Cordell's sign/cords Neurologic/Psychiatric: positive: Oriented x3, Sensation nml. negative: Weakness, Sensory loss, Facial droop, Slurred/abnml speech, Depressed mood/affect - Lab Results Fish Bones: 01/18/19 04:50 01/18/19 04:50 Other Labs: Lab Results x24hrs 01/18/19 01/18/19 01/18/19 Range/Units 04:50 04:50 04:50 WBC 9.1 (4.8-10.8) x10^3/uL RBC 3.77 L (4.70-6.10) 10^6/uL Hgb 10.6 L (14.0-18.0) g/dL Hct 32.3 L (42.0-52.0) % MCV 85.8 (80.0-94.0) fL MCH 28.2 (27.0-31.0) pg MCHC 32.9 (32.0-36.0) g/dL RDW 13.4 (12.0-15.0) % Plt Count 158 (130-450) 10^3/uL MPV 7.7 (7.4-11.4) fL Neut # (Auto) 7.6 H (1.5-6.6) 10^3/uL Lymph # (Auto) 0.6 L (1.5-3.5) 10^3/uL Bailey # (Auto) 0.6 (0.0-1.0) 10^3/uL Eos # (Auto) 0.2 (0.0-0.7) 10^3/uL Baso # (Auto) 0.0 (0.0-0.1) 10^3/uL Absolute Nucleated RBC 0.00 x10^3/uL Nucleated RBC % 0.0 /100WBC Sodium 132 L (135-145) mmol/L Potassium 3.3 L (3.5-5.0) mmol/L Chloride 99 L (101-111) mmol/L Carbon Dioxide 22 (21-32) mmol/L Anion Gap 11.0 (6-13) BUN 7 (6-20) mg/dL Creatinine 0.7 (0.6-1.2) mg/dL Estimated GFR (MDRD) 144 (>89) Glucose 301 H (70-100) mg/dL Lactic Acid 1.0 (0.5-2.2) mmol/L Calcium 8.4 L (8.5-10.3) mg/dL ABX Reporting Has patient been on IV antibiotics over the past 48 hours?: Yes Sepsis Event Note (H) - Evaluation Possible source of Sepsis: positive: Genitourinary - Sepsis Criteria Sepsis Criteria: Recorded Heart Rate greater than 90 bpm Assessment/Plan - Problem List (1) Pyelonephritis Impression: (1)fever 01/18 pt had 37.7 today. UA sensitivity study reveals today Ecoli is resistance to Zosyn. This can be the cause why pt continue to have this sligh high temperature. switch to Rocephin 2 g daily IVF of NS follow up blood culture pt had fever today at 38.2. pt had two tube shown gram negative bacilli, which can cause pt have fever continue treated with Zosyn check lactic acid blood culture IVF of NS (2)bacteremia 01/18 treat with Rocephin, sensitivity is pending pt is positive for gram negative bacilli in two tubes continue zosyn will followup culture and sensitivity study (3)tachycardia pt still present, pt has hx of 100-[address] now pt has infection and elevated temperature. pt denies any palpitation, chest pain, shortness of breath. continue tele, vital will consider add Cardizem if pt's temperature is normal, and pt has symptoms EKG reveals ST, it appeared from pt's infection and fever. Tylenol for fever PRN. 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 pt used to have 40 unit Lantus per day 01/17, still has high level of glucose, increase to 30unit of Lantus QPM, and increase slide scale to middle to high level, add QAM lantus 5 units pt has hx of usage of 40 unit Lantus in the far past but recently Lantus is down to 20 units will monitor glucose level closely hx of uncontrolled DM1 reconcile home insulin, start slide scale, hypoglycemia protocol (6) Neurogenic bladder Conclusion/Plan: 01/18, d/c zee, pt had 600ml urine, but nurse report pt still have over 500ml urine at his bladder, continue Zee. advise pt to see urologist as out-pt after d/c 01/17 will take Zee off when pt has no fever, more stable. Set on the time and let pt urine by himself, even if he did not feel he has to go pt report he did not feel he need to go urine. one way for pt to resolve his pro blem now, on time pt go to urinate, no matter he feel or not followup urologist as out-pt now pt had Zee (7) Hypokalemia Conclusion/Plan: resolved K is 2.9, replace it and check (8) Hyponatremia Na 128, pt hx of hyponatremia, it may be caused by his hyperglycemia slide scale to strictly control pt's glucose continue IVF of NS, recheck (2) Diabetes type 1, uncontrolled Qualifiers: Glycemic state: with hypoglycemia Coma presence: without coma Qualified Code(s): E10.649 - Type 1 diabetes mellitus with hypoglycemia without coma
[2019-01-18] MEDS ORDERED: cefTRIAXone 2 GM VIAL IVP SCH (14:19)
[2019-01-18] MEDS ORDERED: LIDOCAINE 2% URO-JET 5 ML SYRINGE UR ONE (15:35)
[2019-01-18] MEDS: cefTRIAXone 2 GM in SODIUM CHLORIDE 0.9% MINIBAG 100 ML IV SCH (16:12)
[2019-01-18 18:48] LABS: BILIRUBIN,URINE NEGATIVE (NEGATIVE); GLUCOSE, URINE (UA) >=1000 mg/dL (NEGATIVE); KETONES,URINE (UA) 40 mg/dL (NEGATIVE); LEUKOCYTE ESTERASE, URINE NEGATIVE (NEGATIVE); NITRITE,URINE NEGATIVE (NEGATIVE); OCCULT BLOOD,URINE NEGATIVE (NEGATIVE); PROTEIN,URINE NEGATIVE (NEGATIVE); UROBILINOGEN,URINE 0.2 (NORMAL) E.U./dL (NORMAL)
[2019-01-18 18:59] LABS: BACTERIA,URINE None Seen /HPF (None Seen); CLARITY,URINE CLEAR (CLEAR); RBC,URINE None Seen /HPF (0-5); SQUAMOUS EPITHELIAL CELL,UR RARE Squamous (<= Few)
[2019-01-18] MEDS: GABAPENTIN 300 MG CAPSULE PO SCH (20:36)
[2019-01-19] MEDS: HYDROmorphone 1 MG/ML CARPUJECT IVP PRN ×4 (01:58→20:32)
[2019-01-19] MEDS: SODIUM CHLORIDE FLUSH 0.9% 10 ML SYRINGE IVP SCH ×3 (02:20→17:18)
[2019-01-19] MEDS: oxyCODONE 5 MG TABLET PO PRN ×4 (04:17→17:23)
[2019-01-19 04:59] LABS: BASOPHILS % (AUTO) 0.6 %; EOSINOPHILS # (AUTO) 0.2 10^3/uL (0.0-0.7); EOSINOPHILS % (AUTO) 2.2 %; HGB - HEMOGLOBIN 10.9 g/dL (14.0-18.0); LYMPHOCYTES # (AUTO) 0.8 10^3/uL (1.5-3.5); MEAN CORPUSCULAR HEMOGLOBIN 28.5 pg (27.0-31.0); MEAN CORPUSCULAR HGB CONC 33.4 g/dL (32.0-36.0); MEAN CORPUSCULAR VOLUME 85.5 fL (80.0-94.0); MEAN PLATELET VOLUME 7.6 fL (7.4-11.4); MONOCYTES # (AUTO) 0.6 10^3/uL (0.0-1.0); MONOCYTES % (AUTO) 7.5 %; NEUTROPHILS # (AUTO) 6.4 10^3/uL (1.5-6.6); NEUTROPHILS % (AUTO) 79.7 %; PLT - PLATELET COUNT 177 10^3/uL (130-450); RED BLOOD COUNT 3.81 10^6/uL (4.70-6.10); RED CELL DISTRIBUTION WIDTH 13.9 % (12.0-15.0)
[2019-01-19 05:08] LABS: CALCIUM 8.5 mg/dL (8.5-10.3); CREATININE 0.4 mg/dL (0.6-1.2)
[2019-01-19] MEDS: SODIUM CHLORIDE 0.9% 1,000 ML IV SCH ×3 (06:03→20:52)
[2019-01-19] MEDS ORDERED: POTASSIUM CHLORIDE 20 MEQ TABLET PO SCH (07:35)
[2019-01-19] MEDS ORDERED: SODIUM CHLORIDE 0.9% 1,000 ML IV SCH (07:35)
[2019-01-19] MEDS ORDERED: SODIUM CHLORIDE 0.65% NASAL SPRAY NAS PRN (07:40)
[2019-01-19] MEDS ORDERED: INSULIN GLARGINE 300 UNIT/3 ML PEN SUBQ SCH ×2 (08:00→21:00)
[2019-01-19] MEDS: MULTIVITAMIN W/MINERALS TABLET PO SCH (08:12)
[2019-01-19] MEDS: FLUoxetine 10 MG CAPSULE PO SCH (08:12)
[2019-01-19] MEDS: SACCHAROMYCES BOULARDII 250 MG CAPSULE PO SCH ×2 (08:12→17:23)
[2019-01-19] MEDS: POLYETHYLENE GLYCOL 3350 17 GM PACKET PO SCH (08:13)
[2019-01-19] MEDS: cefTRIAXone 2 GM in SODIUM CHLORIDE 0.9% MINIBAG 100 ML IV SCH (08:13)
[2019-01-19] MEDS: SODIUM CHLORIDE FLUSH 0.9% 10 ML SYRINGE IVP PRN ×3 (08:13→20:32)
[2019-01-19] MEDS: NYSTATIN 500000 UNITS/5 ML UDC PO SCH ×4 (08:13→20:38)
[2019-01-19] MEDS: INSULIN ASPART 300 UNIT/3 ML PEN SUBQ SCH ×4 (08:19→20:39)
[2019-01-19] MEDS ORDERED: cefTRIAXone 2 GM VIAL IVP SCH (09:00)
[2019-01-19] MEDS ORDERED: INSULIN ASPART 300 UNIT/3 ML PEN SUBQ ONE (12:50)
[2019-01-19] MEDS ORDERED: POTASSIUM CHLORIDE 20 MEQ TABLET PO ONE (12:56)
--- NOTE | 2019-01-19 13:41 | PROVIDER PROGRESS NOTE ---
Subjective - Prog Note Date Prog Note Date: 01/19/19 - Subjective Pt reports feeling: No change Subjective: nurse tech told me pt continue to drink Ensure which has lots of sugar. I will discuss with nurse, let pt has carbo control diet, not take high sugar ensure. Now pt's glucose level is over 300 even insulin 40 unit plus added Lantus 10 unit, and high slide scale. In last admission pt only need 20 lantus daily with moderate slide scale. Today pt's lab test show pt had small ketone in serum. Current Medications - Current Medications Current Medications: Active Medications Acetaminophen (Tylenol) 650 mg PO Q4HR PRN PRN Reason: Pain 1 to 4 Last Admin: 01/18/19 13:37 Dose: 650 mg Dicyclomine HCl (Bentyl) 20 mg PO QID PRN PRN Reason: ABDOMINAL CRAMPING Last Admin: 01/17/19 03:39 Dose: 20 mg Diphenhydramine HCl (Benadryl Inj) 25 mg IVP Q6H PRN PRN Reason: Allergy Symptoms Last Admin: 01/18/19 10:10 Dose: 25 mg Fluoxetine HCl (Prozac) 40 mg PO DAILY [facility] Last Admin: 01/19/19 08:12 Dose: 40 mg Gabapentin (Neurontin) 900 mg PO QPM [facility] Last Admin: 01/18/19 20:36 Dose: 900 mg Hydromorphone HCl (Dilaudid Inj Carp) 1 mg IVP Q6HR PRN PRN Reason: Pain 8 to 10 Last Admin: 01/19/19 08:12 Dose: 1 mg Ceftriaxone Sodium 2 gm/ (Sodium Chloride) 100 mls @ 200 mls/hr IV DAILY [facility] Last Infusion: 01/19/19 08:43 Dose: Infused Sodium Chloride (Normal Saline 0.9%) 1,000 mls @ 175 mls/hr IV .Q5H43M [facility] Insulin Aspart (Novolog) 3 - 11 unit SUBQ 0800,1200,1700,2100 SHE[facility]; Protocol Last Admin: 01/19/19 11:46 Dose: 11 unit Insulin Glargine (Lantus Solostar) 10 unit SUBQ QDBREAKFAST [facility] Last Admin: 01/19/19 08:19 Dose: 10 unit Insulin Glargine (Lantus Solostar) 40 unit SUBQ QPM [facility] Multivitamins/Minerals (Theragran M) 1 tab PO DAILYWM [facility] Last Admin: 01/19/19 08:12 Dose: 1 tab Nystatin (Mycostatin) 5 ml PO QID [facility] Last Admin: 01/19/19 12:21 Dose: 5 ml Ondansetron HCl (Zofran Inj) 4 mg IVP Q6HR PRN PRN Reason: Nausea / Vomiting Ondansetron HCl (Zofran Odt) 4 mg TL Q6HR PRN PRN Reason: Nausea / Vomiting Oxycodone HCl (Roxicodone) 5 mg PO Q4HR PRN PRN Reason: Pain 5 to 7 Last Admin: 01/19/19 12:21 Dose: 5 mg Polyethylene Glycol (Miralax) 17 gm PO DAILY [facility] Last Admin: 01/19/19 08:13 Dose: Not Given Quetiapine Fumarate (Seroquel) 50 mg PO QPM [facility] Saccharomyces Boulardii (Florastor) 250 mg PO BIDWM [facility] Last Admin: 01/19/19 08:12 Dose: 250 mg Sodium Chloride (Normal Saline Flush 0.9%) 10 ml IVP PRN PRN PRN Reason: NEEDED PER PROVIDER ORDERS Last Admin: 01/19/19 08:13 Dose: 10 ml Sodium Chloride (Normal Saline Flush 0.9%) 10 ml IVP 0100,0900,1700 [facility] Last Admin: 01/19/19 08:13 Dose: 10 ml Sodium Chloride (Stevens) 2 sprays VANI Q4HR PRN PRN Reason: Nasal Congestion Fluoxetine HCl 40 mg PO DAILY PRN 11/28/18 Gabapentin 900 mg PO QPM PRN 11/28/18 Quetiapine Fumarate [Quetiapine Fumarate ER] 50 mg PO QPM PRN 11/28/18 Insulin Aspart [NovoLOG] 0 - 7 units SUBQ TIDWM PRN 01/08/19 Dicyclomine HCl 20 mg PO QID PRN 01/16/19 Objective - Vital Signs/Intake & Output Reviewed Vital Signs: Yes Vital Signs: Vital Signs x48h Temp Pulse Resp BP Pulse Ox 01/19/19 11:39 36.9 C 118 H 16 124/74 96 01/19/19 08:00 36.6 C 110 H 12 136/81 H 98 Intake & Output: Intake & Output 01/16/19 01/17/19 01/18/19 01/19/19 23:59 23:59 23:59 23:59 Intake Total 2350 8955.167 7993.167 3033.333 Output Total 3600 7825 7419 5100 Balance -1250 1105.167 518.167 -2066.667 - Objective General Appearance: positive: No acute distress, Alert. negative: Lethargic Eyes Bilateral: positive: Normal inspection, PERRL, No lid inflammation, Conjunctivae nml ENT: positive: ENT inspection nml, Pharynx nml, No signs of dehydration. negative: Purulent nasal drainage, Pharyngeal erythema, Oral lesions Neck: positive: Nml inspection, Thyroid nml, No JVD, Trachea midline. negative: Thyromegaly, Lymphadenopathy (R), Lymphadenopathy (L), Stiff neck, Swelling/bruising, Tracheal deviation Respiratory: positive: Chest non-tender, No respiratory distress, Breath sounds nml. negative: Wheezes, Rales, Rhonchi Cardiovascular: positive: Regular rate & rhythm, No murmur, No gallop, Tachycardia. negative: Irregularly irregular, Extrasystoles, Bradycardia, JVD present, Systolic murmur, Diastolic murmur Peripheral Pulses: 2+ Radial (R), 2+ Radial (L), 2+ Dorsalis pedis (R), 2+ Dorsalis pedis (L) Abdomen: positive: Non-tender, No organomegaly, Nml bowel sounds, No distention. negative: Tenderness, Guarding, Rebound Back: positive: Nml inspection. negative: CVA tenderness (R), CVA tenderness (L) Skin: positive: Color nml, No rash, Warm, Dry. negative: Cyanosis, Diaphoresis, Pallor, Skin rash Extremities: positive: Non-tender, Full ROM, Nml appearance. negative: Calf tenderness, Joint swelling, Cordell's sign/cords Neurologic/Psychiatric: positive: Oriented x3, Sensation nml, Mood/affect nml. negative: Weakness, Sensory loss, Facial droop, Slurred/abnml speech, Depressed mood/affect - Lab Results Fish Bones: 01/19/19 04:55 01/19/19 04:55 Other Labs: Lab Results x24hrs 04/25/19 04/25/19 04/25/19 Range/Units 11:24 08:00 07:49 WBC (4.8-10.8) x10^3/uL RBC (4.70-6.10) 10^6/uL Hgb (14.0-18.0) g/dL Hct (42.0-52.0) % MCV (80.0-94.0) fL MCH (27.0-31.0) pg MCHC (32.0-36.0) g/dL RDW (12.0-15.0) % Plt Count (130-450) 10^3/uL MPV (7.4-11.4) fL Neut # (Auto) (1.5-6.6) 10^3/uL Lymph # (Auto) (1.5-3.5) 10^3/uL [place] # (Auto) (0.0-1.0) 10^3/uL Eos # (Auto) (0.0-0.7) 10^3/uL Baso # (Auto) (0.0-0.1) 10^3/uL Absolute Nucleated RBC x10^3/uL Nucleated RBC % /100WBC Sodium (135-145) mmol/L Potassium (3.5-5.0) mmol/L Chloride (101-111) mmol/L Carbon Dioxide (21-32) mmol/L Anion Gap (6-13) BUN (6-20) mg/dL Creatinine (0.6-1.2) mg/dL Estimated GFR (MDRD) (>89) Glucose (70-100) mg/dL POC Whole Bld Glucose 330 H (70 - 100) mg/dL Calcium (8.5-10.3) mg/dL Urine Color Urine Clarity (CLEAR) Urine pH (5.0-7.5) PH Ur Specific [place] (1.002-1.030) Urine Protein (NEGATIVE) mg/dL Urine Glucose (UA) (NEGATIVE) mg/dL Urine Ketones (NEGATIVE) mg/dL Urine Occult Blood (NEGATIVE) Urine Nitrite (NEGATIVE) Urine Bilirubin (NEGATIVE) Urine Urobilinogen (NORMAL) E.U./dL Ur Leukocyte Esterase (NEGATIVE) Urine RBC (0-5) /HPF Urine WBC (0-3) /HPF Ur Squamous Epith Cells (<= Few) Urine Bacteria (None Seen) /HPF Urine Culture Comments Urine Sodium 49.0 mmol/L Serum Ketones SMALL H (NEGATIVE) 01/19/19 01/19/19 01/19/19 Range/Units 07:45 04:55 04:55 WBC 8.0 (4.8-10.8) x10^3/uL RBC 3.81 L (4.70-6.10) 10^6/uL Hgb 10.9 L (14.0-18.0) g/dL Hct 32.6 L (42.0-52.0) % MCV 85.5 (80.0-94.0) fL MCH 28.5 (27.0-31.0) pg MCHC 33.4 (32.0-36.0) g/dL RDW 13.9 (12.0-15.0) % Plt Count 177 (130-450) 10^3/uL MPV 7.6 (7.4-11.4) fL Neut # (Auto) 6.4 (1.5-6.6) 10^3/uL Lymph # (Auto) 0.8 L (1.5-3.5) 10^3/uL [place] # (Auto) 0.6 (0.0-1.0) 10^3/uL Eos # (Auto) 0.2 (0.0-0.7) 10^3/uL Baso # (Auto) 0.0 (0.0-0.1) 10^3/uL Absolute Nucleated RBC 0.00 x10^3/uL Nucleated RBC % 0.0 /100WBC Sodium 137 (135-145) mmol/L Potassium 3.1 L (3.5-5.0) mmol/L Chloride 97 L (101-111) mmol/L Carbon Dioxide 24 (21-32) mmol/L Anion Gap 16.0 H (6-13) BUN 6 (6-20) mg/dL Creatinine 0.4 L (0.6-1.2) mg/dL Estimated GFR (MDRD) 274 (>89) Glucose 243 H (70-100) mg/dL POC Whole Bld Glucose 270 H (70 - 100) mg/dL Calcium 8.5 (8.5-10.3) mg/dL Urine Color Urine Clarity (CLEAR) Urine pH (5.0-7.5) PH Ur Specific [place] (1.002-1.030) Urine Protein (NEGATIVE) mg/dL Urine Glucose (UA) (NEGATIVE) mg/dL Urine Ketones (NEGATIVE) mg/dL Urine Occult Blood (NEGATIVE) Urine Nitrite (NEGATIVE) Urine Bilirubin (NEGATIVE) Urine Urobilinogen (NORMAL) E.U./dL Ur Leukocyte Esterase (NEGATIVE) Urine RBC (0-5) /HPF Urine WBC (0-3) /HPF Ur Squamous Epith Cells (<= Few) Urine Bacteria (None Seen) /HPF Urine Culture Comments Urine Sodium mmol/L Serum Ketones (NEGATIVE) 01/18/19 01/18/19 01/18/19 Range/Units 21:38 18:35 16:49 WBC (4.8-10.8) x10^3/uL RBC (4.70-6.10) 10^6/uL Hgb (14.0-18.0) g/dL Hct (42.0-52.0) % MCV (80.0-94.0) fL MCH (27.0-31.0) pg MCHC (32.0-36.0) g/dL RDW (12.0-15.0) % Plt Count (130-450) 10^3/uL MPV (7.4-11.4) fL Neut # (Auto) (1.5-6.6) 10^3/uL Lymph # (Auto) (1.5-3.5) 10^3/uL [place] # (Auto) (0.0-1.0) 10^3/uL Eos # (Auto) (0.0-0.7) 10^3/uL Baso # (Auto) (0.0-0.1) 10^3/uL Absolute Nucleated RBC x10^3/uL Nucleated RBC % /100WBC Sodium (135-145) mmol/L Potassium (3.5-5.0) mmol/L Chloride (101-111) mmol/L Carbon Dioxide (21-32) mmol/L Anion Gap (6-13) BUN (6-20) mg/dL Creatinine (0.6-1.2) mg/dL Estimated GFR (MDRD) (>89) Glucose (70-100) mg/dL POC Whole Bld Glucose 230 H 342 H (70 - 100) mg/dL Calcium (8.5-10.3) mg/dL Urine Color YELLOW Urine Clarity CLEAR (CLEAR) Urine pH 7.0 (5.0-7.5) PH Ur Specific [place] <=1.005 (1.002-1.030) Urine Protein NEGATIVE (NEGATIVE) mg/dL Urine Glucose (UA) >=1000 H (NEGATIVE) mg/dL Urine Ketones 40 H (NEGATIVE) mg/dL Urine Occult Blood NEGATIVE (NEGATIVE) Urine Nitrite NEGATIVE (NEGATIVE) Urine Bilirubin NEGATIVE (NEGATIVE) Urine Urobilinogen 0.2 (NORMAL) (NORMAL) E.U./dL Ur Leukocyte Esterase NEGATIVE (NEGATIVE) Urine RBC None Seen (0-5) /HPF Urine WBC 0-3 (0-3) /HPF Ur Squamous Epith Cells RARE Squamous (<= Few) Urine Bacteria None Seen (None Seen) /HPF Urine Culture Comments NOT INDICATED Urine Sodium mmol/L Serum Ketones (NEGATIVE) 01/18/19 01/18/19 01/18/19 Range/Units 11:15 07:35 03:14 WBC (4.8-10.8) x10^3/uL RBC (4.70-6.10) 10^6/uL Hgb (14.0-18.0) g/dL Hct (42.0-52.0) % MCV (80.0-94.0) fL MCH (27.0-31.0) pg MCHC (32.0-36.0) g/dL RDW (12.0-15.0) % Plt Count (130-450) 10^3/uL MPV (7.4-11.4) fL Neut # (Auto) (1.5-6.6) 10^3/uL Lymph # (Auto) (1.5-3.5) 10^3/uL [place] # (Auto) (0.0-1.0) 10^3/uL Eos # (Auto) (0.0-0.7) 10^3/uL Baso # (Auto) (0.0-0.1) 10^3/uL Absolute Nucleated RBC x10^3/uL Nucleated RBC % /100WBC Sodium (135-145) mmol/L Potassium (3.5-5.0) mmol/L Chloride (101-111) mmol/L Carbon Dioxide (21-32) mmol/L Anion Gap (6-13) BUN (6-20) mg/dL Creatinine (0.6-1.2) mg/dL Estimated GFR (MDRD) (>89) Glucose (70-100) mg/dL POC Whole Bld Glucose 174 H 185 H 348 H (70 - 100) mg/dL Calcium (8.5-10.3) mg/dL Urine Color Urine Clarity (CLEAR) Urine pH (5.0-7.5) PH Ur Specific [place] (1.002-1.030) Urine Protein (NEGATIVE) mg/dL Urine Glucose (UA) (NEGATIVE) mg/dL Urine Ketones (NEGATIVE) mg/dL Urine Occult Blood (NEGATIVE) Urine Nitrite (NEGATIVE) Urine Bilirubin (NEGATIVE) Urine Urobilinogen (NORMAL) E.U./dL Ur Leukocyte Esterase (NEGATIVE) Urine RBC (0-5) /HPF Urine WBC (0-3) /HPF Ur Squamous Epith Cells (<= Few) Urine Bacteria (None Seen) /HPF Urine Culture Comments Urine Sodium mmol/L Serum Ketones (NEGATIVE) 01/17/19 01/17/19 01/17/19 Range/Units 20:47 16:47 11:02 WBC (4.8-10.8) x10^3/uL RBC (4.70-6.10) 10^6/uL Hgb (14.0-18.0) g/dL Hct (42.0-52.0) % MCV (80.0-94.0) fL MCH (27.0-31.0) pg MCHC (32.0-36.0) g/dL RDW (12.0-15.0) % Plt Count (130-450) 10^3/uL MPV (7.4-11.4) fL Neut # (Auto) (1.5-6.6) 10^3/uL Lymph # (Auto) (1.5-3.5) 10^3/uL [place] # (Auto) (0.0-1.0) 10^3/uL Eos # (Auto) (0.0-0.7) 10^3/uL Baso # (Auto) (0.0-0.1) 10^3/uL Absolute Nucleated RBC x10^3/uL Nucleated RBC % /100WBC Sodium (135-145) mmol/L Potassium (3.5-5.0) mmol/L Chloride (101-111) mmol/L Carbon Dioxide (21-32) mmol/L Anion Gap (6-13) BUN (6-20) mg/dL Creatinine (0.6-1.2) mg/dL Estimated GFR (MDRD) (>89) Glucose (70-100) mg/dL POC Whole Bld Glucose 338 H 274 H 285 H (70 - 100) mg/dL Calcium (8.5-10.3) mg/dL Urine Color Urine Clarity (CLEAR) Urine pH (5.0-7.5) PH Ur Specific [place] (1.002-1.030) Urine Protein (NEGATIVE) mg/dL Urine Glucose (UA) (NEGATIVE) mg/dL Urine Ketones (NEGATIVE) mg/dL Urine Occult Blood (NEGATIVE) Urine Nitrite (NEGATIVE) Urine Bilirubin (NEGATIVE) Urine Urobilinogen (NORMAL) E.U./dL Ur Leukocyte Esterase (NEGATIVE) Urine RBC (0-5) /HPF Urine WBC (0-3) /HPF Ur Squamous Epith Cells (<= Few) Urine Bacteria (None Seen) /HPF Urine Culture Comments Urine Sodium mmol/L Serum Ketones (NEGATIVE) 01/17/19 01/16/19 01/16/19 Range/Units 07:30 20:39 16:49 WBC (4.8-10.8) x10^3/uL RBC (4.70-6.10) 10^6/uL Hgb (14.0-18.0) g/dL Hct (42.0-52.0) % MCV (80.0-94.0) fL MCH (27.0-31.0) pg MCHC (32.0-36.0) g/dL RDW (12.0-15.0) % Plt Count (130-450) 10^3/uL MPV (7.4-11.4) fL Neut # (Auto) (1.5-6.6) 10^3/uL Lymph # (Auto) (1.5-3.5) 10^3/uL [place] # (Auto) (0.0-1.0) 10^3/uL Eos # (Auto) (0.0-0.7) 10^3/uL Baso # (Auto) (0.0-0.1) 10^3/uL Absolute Nucleated RBC x10^3/uL Nucleated RBC % /100WBC Sodium (135-145) mmol/L Potassium (3.5-5.0) mmol/L Chloride (101-111) mmol/L Carbon Dioxide (21-32) mmol/L Anion Gap (6-13) BUN (6-20) mg/dL Creatinine (0.6-1.2) mg/dL Estimated GFR (MDRD) (>89) Glucose (70-100) mg/dL POC Whole Bld Glucose 389 H 274 H 199 H (70 - 100) mg/dL Calcium (8.5-10.3) mg/dL Urine Color Urine Clarity (CLEAR) Urine pH (5.0-7.5) PH Ur Specific [place] (1.002-1.030) Urine Protein (NEGATIVE) mg/dL Urine Glucose (UA) (NEGATIVE) mg/dL Urine Ketones (NEGATIVE) mg/dL Urine Occult Blood (NEGATIVE) Urine Nitrite (NEGATIVE) Urine Bilirubin (NEGATIVE) Urine Urobilinogen (NORMAL) E.U./dL Ur Leukocyte Esterase (NEGATIVE) Urine RBC (0-5) /HPF Urine WBC (0-3) /HPF Ur Squamous Epith Cells (<= Few) Urine Bacteria (None Seen) /HPF Urine Culture Comments Urine Sodium mmol/L Serum Ketones (NEGATIVE) ABX Reporting Has patient been on IV antibiotics over the past 48 hours?: Yes Sepsis Event Note (H) - Evaluation Current Stage of Sepsis: Sepsis Possible source of Sepsis: positive: Genitourinary - Sepsis Criteria Sepsis Criteria: Recorded Heart Rate greater than 90 bpm Assessment/Plan - Problem List (1) Fever Impression: 01/19 resolved fever, continue Rocephin blood culture result reveals sensitive to Rocephin IVF of NS 01/18 pt had 37.7 today. UA sensitivity study reveals today Ecoli is resistance to Zosyn. This can be the cause why pt continue to have this sligh high temperature. switch to Rocephin 2 g daily IVF of NS follow up blood culture pt had fever today at 38.2. pt had two tube shown gram negative bacilli, which can cause pt have fever continue treated with Zosyn check lactic acid blood culture IVF of NS (2)bacteremia 01/19 one tube blood culture show sensitive to Rocephin but resistance to Zosyn 01/18 treat with Rocephin, sensitivity is pending pt is positive for gram negative bacilli in two tubes continue zosyn will followup culture and sensitivity study (3)tachycardia pt has HR 118, pt has hx of ST. pt denies palpitation, chest pain. pt still present, pt has hx of 100-[address] now pt has infection and elevated temperature. pt denies any palpitation, chest pain, shortness of breath. continue tele, vital will consider add Cardizem if pt's temperature is normal, and pt has symptoms EKG reveals ST, it appeared from pt's infection and fever. Tylenol for fever PRN. tele monitor vital monitor (4) Pyelonephritis Conclusion/Plan: 01/19 continue Rocephin. pt has no more fever. 01/18 switch to Rocephin antibiotics to treat pt has fever, CT of abdomen reveals hydronephrosis and right pyelonephritis start with Zee Zosyn IVF of NS (5) Diabetes type 1, uncontrolled Conclusion/Plan: 01/19, pt's glucose is over 300 today, pt had ensure. will discuss with nurse strict followup diet order pt has small ketone, IVF of NS, recheck BMP, monitor potassium control glucose, increase slide scale level check ADH, urine Na, and urine osmolality. pt has normal Na. 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 pt used to have 40 unit Lantus per day 01/17, still has high level of glucose, increase to 30unit of Lantus QPM, and increase slide scale to middle to high level, add QAM lantus 5 units pt has hx of usage of 40 unit Lantus in the far past but recently Lantus is down to 20 units will monitor glucose level closely hx of uncontrolled DM1 reconcile home insulin, start slide scale, hypoglycemia protocol (6) Neurogenic bladder Conclusion/Plan: 01/19 nurse train pt on time to urine 01/18, d/c zee, pt had 600ml urine, but nurse report pt still have over 500ml urine at his bladder, continue Zee. advise pt to see urologist as out-pt after d/c 01/17 will take Zee off when pt has no fever, more stable. Set on the time and let pt urine by himself, even if he did not feel he has to go pt report he did not feel he need to go urine. one way for pt to resolve his problem now, on time pt go to urinate, no matter he feel or not followup urologist as out-pt now pt had Zee (7) Hypokalemia Conclusion/Plan: K3.1, replaced resolved K is 2.9, replace it and check (8) Hyponatremia 01/19 Na 137, resolved Na 128, pt hx of hyponatremia, it may be caused by his hyperglycemia slide scale to strictly control pt's glucose continue IVF of NS, recheck (2) Diabetes type 1, uncontrolled Qualifiers: Glycemic state: with hypoglycemia Coma presence: without coma Qualified Code(s): E10.649 - Type 1 diabetes mellitus with hypoglycemia without coma
[2019-01-19 17:27] LABS: CALCIUM 8.6 mg/dL (8.5-10.3); CREATININE 0.6 mg/dL (0.6-1.2)
[2019-01-19] MEDS: GABAPENTIN 300 MG CAPSULE PO SCH (20:38)
[2019-01-19] MEDS ORDERED: QUEtiapine 25 MG TABLET PO SCH (21:00)
[2019-01-20] MEDS: SODIUM CHLORIDE FLUSH 0.9% 10 ML SYRINGE IVP SCH ×2 (00:35→08:50)
[2019-01-20] MEDS: SODIUM CHLORIDE 0.9% 1,000 ML IV SCH ×2 (00:39→05:55)
[2019-01-20] MEDS: oxyCODONE 5 MG TABLET PO PRN ×3 (00:39→14:46)
[2019-01-20] MEDS: HYDROmorphone 1 MG/ML CARPUJECT IVP PRN ×2 (02:55→08:48)
[2019-01-20] MEDS ORDERED: SODIUM CHLORIDE 0.9% 1,000 ML IV SCH (07:32)
[2019-01-20] MEDS: FLUoxetine 10 MG CAPSULE PO SCH (08:54)
[2019-01-20] MEDS: MULTIVITAMIN W/MINERALS TABLET PO SCH (08:54)
[2019-01-20] MEDS: NYSTATIN 500000 UNITS/5 ML UDC PO SCH ×2 (08:54→13:44)
[2019-01-20] MEDS: SACCHAROMYCES BOULARDII 250 MG CAPSULE PO SCH (08:54)
[2019-01-20] MEDS: cefTRIAXone 2 GM in SODIUM CHLORIDE 0.9% MINIBAG 100 ML IV SCH (08:56)
[2019-01-20] MEDS: INSULIN ASPART 300 UNIT/3 ML PEN SUBQ SCH ×2 (09:17→11:54)
[2019-01-20] MEDS: POLYETHYLENE GLYCOL 3350 17 GM PACKET PO SCH (09:18)
--- NOTE | 2019-01-20 12:30 | Discharge Plan ---
Discharge Plan Disposition: Home, Self Care Condition: Poor Prescriptions: Cefuroxime Axetil [Cefuroxime] 500 mg PO BID #14 tablet HYDROcod/ACETAM 5/325 [[place] 5/325] 1 each PO Q6H PRN #12 tablet PRN Reason: Pain Insulin Glargine [Lantus Solostar] 40 units SUBQ QPM #4 pen Saccharomyces Boulardii [Florastor] 250 mg PO DAILY #7 capsule Diet: Diabetic Activity Restrictions: Activity as Tolerated Instruction Topics: Cefuroxime tablets, Acetaminophen Hydrocodone tablets or capsules Additional Instructions or Follow Up instructions: You may followup your PCP in one week. You are trained to urinate every two hours for your diabetes neurogenic bladder urination retention. you did well in the hospital. It is very important to follow the rule, go to urinate every two hours. Your insulin is back to your regular dosage 40 unit of Lantus at the night, please followup hypoglycemia protocol as we trained to you. Antibiotics is prescribed for you to continue your treatment course. Should your symptoms return or worsen, you may present ER or call 911, call your PCP for help. No Smoking: If you smoke, Please STOP! Call for help. Follow-up with: Ailin Kumar DNP [Primary Care Provider] -
--- NOTE | 2019-01-20 12:45 | DISCHARGE SUMMARY ---
Discharge Summary Discharge Date: 01/20/19 Discharging Provider: LOPEZ Primary Care Provider: Dr. Barbosa Condition at Discharge: Poor Discharge Disposition: 01 Home, Self Care Discharge Facility Name: home - DIAGNOSES Admission Diagnoses: (1) Pyelonephritis (2) Diabetes type 1, uncontrolled (3) Neurogenic bladder (4) Hypokalemia (5) Hyponatremia Discharge Diagnoses with Status of Each Condition: (1) Fever (2)bacteremia (3)tachycardia (4) Pyelonephritis (5) Diabetes type 1, uncontrolled (6) Neurogenic bladder (7) Hypokalemia (8) Hyponatremia - HPI History of Present Illness: Mr. Kearney is an 18-year male with a past medical history of poorly controlled diabetes mellitus type 1, poor social support, protein calorie malnutrition, polysubstance abuse, right eye cellulitis, insomnia, diabetic peripheral neuropathy, gastroparesis, neurogenic bladder, urinary retention, medical non- compliance, passive suicidal ideation, major depressive disorder, GERD, sepsis requiring IV therapy, and chronic abdominal pain, who present ER for complain of fever. Pt report he felt fever today, and ache all over his body. He report he did not feel he should go to bathroom for urination, then he has no urination from yesterday until today. He denies chest pain, cough, shortness of breath. CT of abdomen reveals bilateral hydronephrosis, moderate to severe at right, and mild to moderate at left hydronephrosis, and suspicious pyelonephritis at right kidney. Pt had Orellana in ER, which come out 2200 ml urine. UA reveal pt had UTI. pt is admitted for above medical condition. - HOSPITAL COURSE Hospital Course: (1) Fever resolved. pt request d/c to home today. (2)bacteremia pt was negative on second blood culture. pt's WBC is normal now. pt has no fever, chill. pt is prescribed Ceftin for another week treatment. (3)tachycardia resolved. pt has chronic slight elevated HR, ST (4) Pyelonephritis pt has no N/V, no fever, chill, WBC is normal. (5) Diabetes type 1, uncontrolled glucose is 158 now. continue home used to have Lantus regimen 40 unit QPM (6) Neurogenic bladder trained pt every two hours to go to bathroom for urination. pt did well and follow the rule in hospital. pt promise he will do the same, 2 hours to go to urinate. (7) Hypokalemia resolved (8) Hyponatremia resolved - ALLERGIES Allergies/Adverse Reactions: Allergies Allergy/AdvReac Type Severity Reaction Status Date / Time No Known Drug Allergies Allergy Verified 01/16/19 12:12 - MEDICATIONS Home Medications: Ambulatory Orders Medication Instructions Recorded Confirmed Fluoxetine HCl 40 mg PO DAILY PRN 11/28/18 01/16/19 Gabapentin 900 mg PO QPM PRN 11/28/18 01/16/19 Quetiapine Fumarate [Quetiapine 50 mg PO QPM PRN 11/28/18 01/16/19 Fumarate ER] Insulin Aspart [NovoLOG] 0 - 7 units SUBQ TIDWM PRN 01/08/19 01/16/19 Dicyclomine HCl 20 mg PO QID PRN 01/16/19 01/16/19 Cefuroxime Axetil [Cefuroxime] 500 mg PO BID #14 tablet 01/20/19 HYDROcod/ACETAM 5/325 [[place] 5/325] 1 each PO Q6H PRN #12 tablet 01/20/19 Insulin Glargine [Lantus Solostar] 40 units SUBQ QPM #4 pen 01/20/19 Saccharomyces Boulardii [Florastor] 250 mg PO DAILY #7 capsule 01/20/19 - PHYSICAL EXAM AT DISCHARGE General Appearance: positive: No acute distress, Alert. negative: Lethargic Eyes Bilateral: positive: Normal inspection, PERRL, No lid inflammation, Conjunctivae nml ENT: positive: ENT inspection nml, Pharynx nml, No signs of dehydration. negative: Purulent nasal drainage, Pharyngeal erythema, Oral lesions Neck: positive: Nml inspection, Thyroid nml, No JVD, Trachea midline. negative: Thyromegaly, Lymphadenopathy (R), Lymphadenopathy (L), Stiff neck, Swelling/bruising, Tracheal deviation Respiratory: positive: Chest non-tender, No respiratory distress, Breath sounds nml. negative: Wheezes, Rales, Rhonchi Cardiovascular: positive: Regular rate & rhythm, No murmur, No gallop, Irregularly irregular. negative: Extrasystoles, Tachycardia, Bradycardia, JVD present, Systolic murmur, Diastolic murmur Peripheral Pulses: positive: 2+ Abdomen: positive: Non-tender, No organomegaly, Nml bowel sounds, No distention. negative: Tenderness, Guarding, Rebound Back: positive: Nml inspection. negative: CVA tenderness (R), CVA tenderness (L) Skin: positive: Color nml, No rash, Warm, Dry. negative: Cyanosis, Diaphoresis, Pallor Extremities: positive: Non-tender, Full ROM, Nml appearance. negative: Calf tenderness, Joint swelling, Cordell's sign/cords Neurologic/Psychiatric: positive: Oriented x3, Motor nml, Sensation nml, Mood/affect nml. negative: Weakness, Sensory loss, Facial droop, Slurred/abnml speech, Depressed mood/affect - LABS Result Diagrams: 01/19/19 04:55 01/19/19 17:13 - SEPSIS Current Stage of Sepsis: Sepsis Possible source of Sepsis: Genitourinary Sepsis Criteria: Recorded Heart Rate greater than 90 bpm - FOLLOW UP Follow Up: You may followup your PCP in one week. You are trained to urinate every two hours for your diabetes neurogenic bladder urination retention. you did well in the hospital. It is very important to follow the rule, go to urinate every two hours. Your insulin is back to your regular dosage 40 unit of Lantus at the night, please followup hypoglycemia protocol as we trained to you. Antibiotics is prescribed for you to continue your treatment course. Should your symptoms return or worsen, you may present ER or call 911, call your PCP for help. - TIME SPENT Time Spent in Discharge (Minutes): 60
[2019-01-20 15:25] VITALS: BP 145/90
[2019-01-20] MEDS ORDERED: HYDROcod/ACETAM 5/325 MG TABLET PO ONE (16:00)
== END 2019-01-20 16:55 | disposition home or self-care (01) | DRG 872 ==
LOC: EDUNIT# → ED 12:01 → MS2 14:05
PROVIDERS: ADMIT Nurse Practitioner Gerontology; ATTEND Nurse Practitioner Gerontology
DX: A41.51 Sepsis due to Escherichia coli [E. coli] (principal); N13.6 Pyonephrosis; E87.1 Hypo-osmolality and hyponatremia; E10.51 Type 1 diabetes mellitus with diabetic peripheral angiopathy without gangrene; E10.649 Type 1 diabetes mellitus with hypoglycemia without coma; K21.9 Gastro-esophageal reflux disease without esophagitis; K52.9 Noninfective gastroenteritis and colitis, unspecified; E10.43 Type 1 diabetes mellitus with diabetic autonomic (poly)neuropathy; K31.84 Gastroparesis; R33.9 Retention of urine, unspecified; N28.9 Disorder of kidney and ureter, unspecified; F32.9 Major depressive disorder, single episode, unspecified; F41.9 Anxiety disorder, unspecified; E87.6 Hypokalemia; N31.9 Neuromuscular dysfunction of bladder, unspecified; G47.00 Insomnia, unspecified; F51.9 Sleep disorder not due to a substance or known physiological condition, unspecified; Z91.19 Patient's noncompliance with other medical treatment and regimen; Z86.14 Personal history of Methicillin resistant Staphylococcus aureus infection
CPT/HCPCS: 36415; 51702; 71045; 71275; 74177; 80048; 80053; 80306; 80307; 80320; 80329; 81001; 82009; 83605; 83690; 83935; 84300; 84484; 84588; 85025; 87040; 87077; 87086; 87181; 93005; 96361; 96374; 96375; 99284; A9270; J1170; J1200; J1815; Q9967; 81003; 83036

== ENCOUNTER 2019-01-22 21:32 | Outpatient (CLI) | payer MEDICAID | END 2019-01-22 21:33 | disposition critical access hospital (66) | LOC: EMS 21:32 | PROVIDERS: ATTEND Surgery | DX: R10.9 Unspecified abdominal pain (principal); R11.2 Nausea with vomiting, unspecified; R19.7 Diarrhea, unspecified | CPT/HCPCS: A0425; A0429; A0999 ==

== ENCOUNTER 2019-01-22 21:52 | Observation (INO) | payer MEDICAID ==
[2019-01-22] MEDS ORDERED: SODIUM CHLORIDE 0.9% 1,000 ML IV ONE ×2 (22:00→22:03)
[2019-01-22] MEDS ORDERED: INSULIN REGULAR HUMAN 100 UNIT/1 ML 10 ML MDV IVP STA (22:04)
[2019-01-22] MEDS ORDERED: ONDANSETRON 4 MG/2 ML VIAL IVP STA (22:04)
[2019-01-22] MEDS ORDERED: fentaNYL 100 MCG/2 ML VIAL IVP STA (22:05)
--- NOTE | 2019-01-22 22:08 | ED Physician Documentation ---
History of Present Illness - Stated complaint Stated Complaint: N/V/D - Chief complaint Chief Complaint: Abd Pain - History obtained from History obtained from: Patient - Additonal information Additional information: Patient is a 18-year-old male with history of type 1 diabetes, gastroparesis, neurogenic bladder and to recent hospitalizations in the past few weeks for DKA and likely urosepsis. Patient also has history of polysubstance abuse. Patient complains of about 1 day of generalized pain, worse in his upper abdomen and associated with nausea and vomiting. Patient also reports some loose stools, although nonbloody. Patient denies any urination changes, fever, GERD discomfort. Patient reports he has been compliant with all medications, including insulin, which he last took earlier today. Patient has not yet taken his nightly Lantus dose. Patient does not use an insulin pump.No other improving or worsening factors noted to his symptoms. Upon arrival, [id number] blood glucose in the 370s. 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: None : Retention, Renal insuffiency HEENT: Other Psych: Depression, Anxiety Musculoskeletal: None Derm: None - Past Surgical History Past Surgical History: No - Present Medications Home Medications: Ambulatory Orders Medication Instructions Recorded Confirmed Fluoxetine HCl 40 mg PO DAILY PRN 11/28/18 01/16/19 Gabapentin 900 mg PO QPM PRN 11/28/18 01/16/19 Quetiapine Fumarate [Quetiapine 50 mg PO QPM PRN 11/28/18 01/16/19 Fumarate ER] Insulin Aspart [NovoLOG] 0 - 7 units SUBQ TIDWM PRN 01/08/19 01/16/19 Dicyclomine HCl 20 mg PO QID PRN 01/16/19 01/16/19 Cefuroxime Axetil [Cefuroxime] 500 mg PO BID #14 tablet 01/20/19 HYDROcod/ACETAM 5/325 [[place] 5/325] 1 each PO Q6H PRN #12 tablet 01/20/19 Insulin Glargine [Lantus Solostar] 40 units SUBQ QPM #4 pen 01/20/19 Saccharomyces Boulardii [Florastor] 250 mg PO DAILY #7 capsule 01/20/19 - Allergies Allergies/Adverse Reactions: Allergies Allergy/AdvReac Type Severity Reaction Status Date / Time No Known Drug Allergies Allergy Verified 01/16/19 12:12 - Social History Does the pt smoke?: No Smoking Status: Never smoker Does the pt drink ETOH?: Yes Does the pt have substance abuse?: Yes - Immunizations Immunizations are current?: Yes - POLST Patient has POLST: No POLST Status: Full Code PD ED PE NORMAL - General General: Alert and oriented X 3, No acute distress. No: Well developed/nourished (Slightly cachetic and frail appearing) - HEENT HEENT: Atraumatic. No: Moist mucous membranes (Dry mucous membranes) - Cardiac Cardiac: RRR, No murmur - Respiratory Respiratory: No respiratory distress, Clear bilaterally - Abdomen Abdomen: Normal bowel sounds, Soft, Non distended. No: Non tender (Mild tenderness to upper abdomen diffusely, no guarding or rebound.) - Derm Derm: Warm and dry, No rash. No: Normal color (Slightly pale) - Extremities Extremities: No deformity, No tenderness to palpate, No edema - Neuro 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, No motor deficit, No sensory deficit - Psych Psych: Normal mood, Normal affect Results - Vitals Vitals: Vital Signs - 24 hr 01/22/19 21:50 Temperature 36.7 C Heart Rate 97 Respiratory 12 Rate Blood Pressure 129/88 H O2 Saturation 99 Oxygen O2 Source Room air - Labs Labs: Laboratory Tests 01/22/19 01/22/19 01/22/19 22:09 22:09 22:09 WBC 4.8 RBC 3.90 L Hgb 11.3 L Hct 33.6 L MCV 86.2 MCH 28.9 MCHC 33.6 RDW 13.3 Plt Count 417 MPV 6.8 L Neut # (Auto) 3.6 Lymph # (Auto) 0.8 L Calloway # (Auto) 0.2 Eos # (Auto) 0.0 Baso # (Auto) 0.0 Absolute Nucleated RBC 0.00 Nucleated RBC % 0.0 VBG pH VBG pCO2 VBG pO2 VBG HCO3 VBG Total CO2 VBG O2 Saturation VBG Base Excess Sodium 133 L Potassium 3.8 Chloride 96 L Carbon Dioxide 25 Anion Gap 12.0 BUN 13 Creatinine 0.6 Estimated GFR (MDRD) 172 Glucose 405 H Calcium 8.9 Total Bilirubin 0.6 AST < 10 L ALT 13 Alkaline Phosphatase 87 Total Protein 7.1 Albumin 2.7 L Globulin 4.4 H Albumin/Globulin Ratio 0.6 L Lipase 19 L Urine Color Urine Clarity Urine pH Ur Specific [place] Urine Protein Urine Glucose (UA) Urine Ketones Urine Occult Blood Urine Nitrite Urine Bilirubin Urine Urobilinogen Ur Leukocyte Esterase Ur Microscopic Review Urine Culture Comments Salicylates < 6.0 Urine Opiates Screen Ur Oxycodone Screen Urine Methadone Screen Ur Propoxyphene Screen Acetaminophen < 10 L Ur Barbiturates Screen Ur Tricyclics Screen Ur Phencyclidine Scrn Ur Amphetamine Screen U Methamphetamines Scrn U Benzodiazepines Scrn Urine Cocaine Screen U Cannabinoids Screen Ethyl Alcohol < 5.0 Serum Ketones SMALL H 01/22/19 01/22/19 23:00 23:02 WBC RBC Hgb Hct MCV MCH MCHC RDW Plt Count MPV Neut # (Auto) Lymph # (Auto) Calloway # (Auto) Eos # (Auto) Baso # (Auto) Absolute Nucleated RBC Nucleated RBC % VBG pH 7.392 VBG pCO2 37.8 L VBG pO2 54.9 H VBG HCO3 22.5 L VBG Total CO2 23.6 L VBG O2 Saturation 88.6 H VBG Base Excess -2.1 L Sodium Potassium Chloride Carbon Dioxide Anion Gap BUN Creatinine Estimated GFR (MDRD) Glucose Calcium Total Bilirubin AST ALT Alkaline Phosphatase Total Protein Albumin Globulin Albumin/Globulin Ratio Lipase Urine Color YELLOW Urine Clarity CLEAR Urine pH 7.0 Ur Specific [place] <=1.005 Urine Protein NEGATIVE Urine Glucose (UA) >=1000 H Urine Ketones 40 H Urine Occult Blood NEGATIVE Urine Nitrite NEGATIVE Urine Bilirubin NEGATIVE Urine Urobilinogen 0.2 (NORMAL) Ur Leukocyte Esterase NEGATIVE Ur Microscopic Review NOT INDICATED Urine Culture Comments NOT INDICATED Salicylates Urine Opiates Screen NEGATIVE Ur Oxycodone Screen NEGATIVE Urine Methadone Screen NEGATIVE Ur Propoxyphene Screen NEGATIVE Acetaminophen Ur Barbiturates Screen NEGATIVE Ur Tricyclics Screen NEGATIVE Ur Phencyclidine Scrn NEGATIVE Ur Amphetamine Screen NEGATIVE U Methamphetamines Scrn NEGATIVE U Benzodiazepines Scrn NEGATIVE Urine Cocaine Screen NEGATIVE U Cannabinoids Screen POSITIVE H Ethyl Alcohol Serum Ketones PD MEDICAL DECISION MAKING - ED course Complexity details: reviewed old records, reviewed results, re-evaluated patient, considered differential, d/w patient, d/w pension consultant ED course: Most concerning for DKA given patient's medical history, recent hospitalizations for such, complaints, and physical exam findings. Vital signs within normal limits upon arrival. Patient also has complications such as gastroparesis and neurogenic bladder, which could be contributory to his complaints today. Patient reports that he has been urinating well without complaints, making urinary retention and other complications like pyelonephritis, nephrolithiasis, UTI, urosepsis, particularly given benign vital signs, less likely. Blood glucose upon arrival significantly elevated in 370s and feel that he is likely experiencing DKA. Have lower suspicion for other intra-abdominal pathology such as gallbladder disease, appendicitis, small bowel obstruction, diverticulitis, AAA, but considered. Patient started on multiple liters of IV fluid, as well as insulin 10 units. Lab work and urinalysis ordered. At this time, do not feel patient requires imaging. Repeat blood glucose following fluid and insulin declined to the to the 200s appropriately. Lab work returned without significant leukocytosis, anion gap, DANIELE, or significant electrolyte imbalance.However, there was ketones in both the serum and urine. There is also a glucose present in the urine. Drug screening returned positive for marijuana.Patient continued to require pain control, and was also given a one-time dose of Zofran for nausea.Discussed patient with hospitalist, who agrees to admit for further work- up and treatment. Patient amenable to this plan. Departure - Departure Disposition: 66 [facility] DC/Xfer Clinical Impression: Hyperglycemia Condition: Fair
[2019-01-22 22:15] LABS: BASOPHILS % (AUTO) 0.7 %; EOSINOPHILS % (AUTO) 0.8 %; HGB - HEMOGLOBIN 11.3 g/dL (14.0-18.0); LYMPHOCYTES # (AUTO) 0.8 10^3/uL (1.5-3.5); LYMPHOCYTES % (AUTO) 17.4 %; MEAN CORPUSCULAR HEMOGLOBIN 28.9 pg (27.0-31.0); MEAN CORPUSCULAR HGB CONC 33.6 g/dL (32.0-36.0); MEAN CORPUSCULAR VOLUME 86.2 fL (80.0-94.0); MEAN PLATELET VOLUME 6.8 fL (7.4-11.4); MONOCYTES # (AUTO) 0.2 10^3/uL (0.0-1.0); MONOCYTES % (AUTO) 4.8 %; NEUTROPHILS # (AUTO) 3.6 10^3/uL (1.5-6.6); NEUTROPHILS % (AUTO) 76.3 %; PLT - PLATELET COUNT 417 10^3/uL (130-450); RED CELL DISTRIBUTION WIDTH 13.3 % (12.0-15.0); WHITE BLOOD COUNT 4.8 x10^3/uL (4.8-10.8)
[2019-01-22 22:30] LABS: ALBUMIN 2.7 g/dL (3.2-5.5); ALBUMIN/GLOBULIN RATIO 0.6 (1.0-2.2); ALKALINE PHOSPHATASE 87 IU/L (42-121); ALT ALANINE AMINOTRANSFERASE 13 IU/L (10-60); AST ASPARTATE AMINOTRANSFERASE < 10 IU/L (10-42); BILIRUBIN,TOTAL 0.6 mg/dL (0.2-1.0); BUN - BLOOD UREA NITROGEN 13 mg/dL (6-20); CALCIUM 8.9 mg/dL (8.5-10.3); CARBON DIOXIDE - CO2 25 mmol/L (21-32); CHLORIDE 96 mmol/L (101-111); CREATININE 0.6 mg/dL (0.6-1.2); GFR - MDRD 172 (>89); GLUCOSE 405 mg/dL (70-100); KETONES, SERUM (ACETEST) SMALL (NEGATIVE); LIPASE 19 U/L (22-51); SODIUM 133 mmol/L (135-145); TOTAL PROTEIN 7.1 g/dL (6.7-8.2)
[2019-01-22 22:40] LABS: ACETAMINOPHEN < 10 ug/mL (10-30); SALICYLATE < 6.0 mg/dL
[2019-01-22 23:03] LABS: VBG BASE EXCESS -2.1 mmol/L (-2 - +2); VBG PCO2 37.8 mmHg (41-51); VBG PH 7.392 (7.31-7.41); VBG PO2 54.9 mmHg (25-47); VBG TOTAL CO2 23.6 mmol/L (24-29)
[2019-01-22 23:06] LABS: MUDS CUTOFF CONCENTRATIONS CUTOFF CONC BELOW:
[2019-01-22 23:10] LABS: BILIRUBIN,URINE NEGATIVE (NEGATIVE); GLUCOSE, URINE (UA) >=1000 mg/dL (NEGATIVE); KETONES,URINE (UA) 40 mg/dL (NEGATIVE); LEUKOCYTE ESTERASE, URINE NEGATIVE (NEGATIVE); NITRITE,URINE NEGATIVE (NEGATIVE); OCCULT BLOOD,URINE NEGATIVE (NEGATIVE); PROTEIN,URINE NEGATIVE (NEGATIVE); UROBILINOGEN,URINE 0.2 (NORMAL) E.U./dL (NORMAL)
[2019-01-22 23:11] LABS: CLARITY,URINE CLEAR (CLEAR)
[2019-01-22] MEDS ORDERED: KETOROLAC 30 MG/ML VIAL IVP STA (23:18)
[2019-01-22 23:20] LABS: AMPHETAMINE SCREEN,URINE NEGATIVE (NEGATIVE); BENZODIAZEPINES SCREEN, URINE NEGATIVE (NEGATIVE); COCAINE SCREEN URINE NEGATIVE (NEGATIVE); METHADONE SCREEN, URINE NEGATIVE (NEGATIVE); METHAMPHETAMINES SCREEN, URINE NEGATIVE (NEGATIVE); OPIATE SCREEN, URINE NEGATIVE (NEGATIVE); OXYCODONE SCREEN, URINE NEGATIVE (NEGATIVE); PROPOXYPHENE SCREEN, URINE NEGATIVE (NEGATIVE); TRICYCLIC ANTIDEPRESSANT,URINE NEGATIVE (NEGATIVE)
[2019-01-23] MEDS ORDERED: SODIUM CHLORIDE FLUSH 0.9% 10 ML SYRINGE IVP PRN (00:12)
[2019-01-23] MEDS ORDERED: ONDANSETRON 4 MG/2 ML VIAL IVP PRN (00:12)
[2019-01-23] MEDS ORDERED: ACETAMINOPHEN 325 MG TABLET PO PRN (00:12)
[2019-01-23] MEDS ORDERED: HYDROcod/ACETAM 5/325 MG TABLET PO PRN (00:18)
[2019-01-23] MEDS ORDERED: GABAPENTIN 300 MG CAPSULE PO PRN (00:18)
[2019-01-23] MEDS ORDERED: QUETIAPINE FUMARATE 50 MG PO PRN (00:18)
[2019-01-23] MEDS ORDERED: diphenhydrAMINE 25 MG CAPSULE PO PRN ×2 (00:20→01:09)
[2019-01-23] MEDS ORDERED: INSULIN GLARGINE 300 UNIT/3 ML PEN SUBQ SCH ×2 (00:21→21:00)
[2019-01-23 00:50] LABS: HEMOGLOBIN A1C 1.29 g/dL
[2019-01-23] MEDS ORDERED: SODIUM CHLORIDE 0.9% 1,000 ML IV SCH (01:00)
--- NOTE | 2019-01-23 01:33 | HISTORY & PHYSICAL EXAMINATION ---
Chief Complaint - Chief Complaint Chief Complaint: abd pain, nausea and vomiting History of Present Illness - Admitted From Admitted From:: [facility] ED - History Obtained From Records Reviewed: yes History obtained from: patient - History of Present Illness HPI Comment/Other: Patient seen on 01/23/19 at 0100 am Patient is a 18 y/o male with DM Type I who was discharged from the hospital 2 days ago. He presents with complain of abdominal pain and unable to keep anything down. He is well known to the hospitalist service and frequently presen ts with the same complain. He reports taking his insulin (lantus 40 units subq qpm) on 01/21/19 but did not take it on 01/22/19. His blood glucose in the ED was 405 and he had small serum ketones. His mentation was intact. He denied chest pain or ÁNGELA. He reports being diaphoretic at home and also concerned about an infection. The rest of his history is unremarkable. He has very poor adherrence to his diabetic management It is reported that he has returned to the ED in worsened condition after prev ious ED discharges He was presented for admission for concern of worsening clinical condition if discharged home. History - Past Medical History Cardiovascular: reports: Peripheral Vascular Disease Respiratory: reports: None Neuro: reports: Peripheral neuropathy, Other Endocrine/Autoimmune: reports: Type 1 diabetes GI: reports: GERD, Chronic diarrhea, Other ESTIMATING MANAGER: reports: None : reports: Retention, Renal insuffiency HEENT: reports: Other Psych: reports: Depression, Anxiety Musculoskeletal: reports: None Derm: reports: None MRSA Hx?: Yes - Family & Social History Family History: Mother: Alive and Well, Diabetes, Type 2 (grandmother), Other family: Diabetes, Type 2 Family History Comment/Other: Neg for gallbladder disease and GI tumors Social History Notes: The patient is originally from [place] but has been living on [facility] for the last 3 years with his aunt. The patient also spent some time in [place]. Patient has had multiple hospitalizations for diabetic ketoacidosis within the last 2-3 years. Patient was diagnosed with diabetes at the age of 3. The patient is single and does not have any children. He does not smoke tobacco and rarely drinks alcohol. The patient does state he occasionally smokes marijuana but denies any other illicit drug use. - Substance History Use: Uses substance without health or social issues: Alcohol, Cannabis (pt may have hyperemesis related to cannabis, continues to smoke marijuana) - POLST Patient has POLST: No POLST Status: Full Code Meds/Allgy - Home Medications Home Medications: Ambulatory Orders Medication Instructions Recorded Confirmed Fluoxetine HCl 40 mg PO DAILY PRN 11/28/18 01/16/19 Gabapentin 900 mg PO QPM PRN 11/28/18 01/16/19 Quetiapine Fumarate [Quetiapine 50 mg PO QPM PRN 11/28/18 01/16/19 Fumarate ER] Insulin Aspart [NovoLOG] 0 - 7 units SUBQ TIDWM PRN 01/08/19 01/16/19 Dicyclomine HCl 20 mg PO QID PRN 01/16/19 01/16/19 Cefuroxime Axetil [Cefuroxime] 500 mg PO BID #14 tablet 01/20/19 HYDROcod/ACETAM 5/325 [[place] 5/325] 1 each PO Q6H PRN #12 tablet 01/20/19 Insulin Glargine [Lantus Solostar] 40 units SUBQ QPM #4 pen 01/20/19 Saccharomyces Boulardii [Florastor] 250 mg PO DAILY #7 capsule 01/20/19 - Allergies Allergies/Adverse Reactions: Allergies Allergy/AdvReac Type Severity Reaction Status Date / Time No Known Drug Allergies Allergy Verified 01/16/19 12:12 Review of Systems - Constitutional Constitutional: reports: Chills, Poor appetite - Eyes Eyes: denies: Blurred vision, Dipolpia - Ears, Nose & Throat Ears, Nose & Throat: denies: Nasal pain, Nasal discharge, Sore throat, Hoarseness - Cardiovascular Cariovascular: denies: Irregular heart rate, Palpitations, Chest pain, Edema, Lightheadedness, Syncope - Respiratory Respiratory: denies: Cough, Sputum production, Wheezing, SOB at rest - Gastrointestinal Gastrointestinal: reports: Abdominal pain, Nausea, Vomiting, Poor appetite. denies: Abdominal distention, Constipation, Diarrhea, Bloating - Genitourinary Genitourinary: denies: Dysuria, Frequency, Urgency - Musculoskeletal Musculoskeletal: denies: Muscle pain, Back pain, Muscle aches, Stiffness - Integumentary Integumentary: denies: Rash, Pruritis, Lesions, Dryness - Neurological Neurological: denies: General weakness, Headache - Psychiatric Psychiatric: reports: Depression, Anxiety - Endocrine Endocrine: reports: Polyuria, Polydypsia - Hematologic/Lymphatic Hematologic/Lymphatic: denies: Anemia, Bruising, Petechiae Prior Level of Functionality: Pt is independent of activities of daily living Exam - Vital Signs Reviewed Vital Signs: Yes Vital Signs: Vital Signs x48h Temp Pulse Resp BP Pulse Ox 01/23/19 00:32 99 16 140/99 H 100 01/22/19 23:36 96 16 155/114 H 100 01/22/19 21:50 36.7 C 97 12 129/88 H 99 - Physical Exam General Appearance: positive: Alert, Moderate distress Eyes Bilateral: positive: Normal inspection, PERRL, EOMI ENT: positive: ENT inspection nml, Pharynx nml Neck: positive: Nml inspection, No JVD, Trachea midline Respiratory: positive: Chest non-tender, No respiratory distress. negative: Wheezes, Rales, Rhonchi Cardiovascular: positive: No murmur, Tachycardia Abdomen: positive: No distention, Tenderness, Guarding. negative: Nml bowel sounds Back: positive: Nml inspection Skin: positive: Color nml, No rash, Warm, Dry. negative: Diaphoresis Extremities: positive: Non-tender, Full ROM, Nml appearance, No pedal edema Neurologic/Psychiatric: positive: Oriented x3 Conclusion/Plan - Problem List (1) Hyperglycemia Conclusion/Plan: 2/2 poorly controlled DM Type I Lantus 40 units subq qpm resumed Moderate sliding scale insulin ordered. IV hydration (2) Abdominal pain Conclusion/Plan: Chronic. 2/2 gastroperesis related to poorly controlled DM I Reglan ordered prn. Toradol ordered Will minimize opiate prescription Qualifiers: Abdominal location: epigastric Qualified Code(s): R10.13 - Epigastric pain (3) Nausea & vomiting Conclusion/Plan: Zofran and reglan ordered prn IV hydration with normal saline Qualifiers: Vomiting type: unspecified Vomiting Intractability: intractable Qualified Code(s): R11.2 - Nausea with vomiting, unspecified (4) Depression Conclusion/Plan: Will resume fluoxetine when appropriate to do so Qualifiers: Depression Type: unspecified Qualified Code(s): F32.9 - Major depressive disorder, single episode, unspecified - Lab Results Fish Bones: 01/22/19 22:09 01/22/19 22:09
[2019-01-23] MEDS: METOCLOPRAMIDE 10 MG TABLET PO SCH ×4 (01:43→10:59)
[2019-01-23] MEDS ORDERED: KETOROLAC 15 MG/ML VIAL IVP PRN (01:47)
[2019-01-23] MEDS: SODIUM CHLORIDE 0.9% 1,000 ML IV SCH ×2 (02:23→09:27)
[2019-01-23] MEDS: SODIUM CHLORIDE FLUSH 0.9% 10 ML SYRINGE IVP SCH ×2 (02:24→08:14)
[2019-01-23] MEDS: diphenhydrAMINE INJ 50 MG/ML VIAL IVP PRN ×2 (02:24→08:14)
[2019-01-23 05:47] LABS: BASOPHILS % (AUTO) 0.5 %; EOSINOPHILS # (AUTO) 0.1 10^3/uL (0.0-0.7); HGB - HEMOGLOBIN 10.4 g/dL (14.0-18.0); LYMPHOCYTES # (AUTO) 1.7 10^3/uL (1.5-3.5); MEAN CORPUSCULAR HEMOGLOBIN 28.1 pg (27.0-31.0); MEAN CORPUSCULAR HGB CONC 32.8 g/dL (32.0-36.0); MEAN CORPUSCULAR VOLUME 85.6 fL (80.0-94.0); MEAN PLATELET VOLUME 6.9 fL (7.4-11.4); MONOCYTES # (AUTO) 0.3 10^3/uL (0.0-1.0); MONOCYTES % (AUTO) 5.8 %; NEUTROPHILS # (AUTO) 3.3 10^3/uL (1.5-6.6); NEUTROPHILS % (AUTO) 61.7 %; PLT - PLATELET COUNT 444 10^3/uL (130-450); RED CELL DISTRIBUTION WIDTH 13.5 % (12.0-15.0); WHITE BLOOD COUNT 5.3 x10^3/uL (4.8-10.8)
[2019-01-23 05:58] LABS: CALCIUM 8.4 mg/dL (8.5-10.3); CREATININE 0.4 mg/dL (0.6-1.2)
[2019-01-23] MEDS: INSULIN ASPART 300 UNIT/3 ML PEN SUBQ SCH ×2 (08:13→12:10)
[2019-01-23] MEDS ORDERED: guaiFENesin 600 MG TABLET PO SCH (09:00)
[2019-01-23] MEDS ORDERED: FLUoxetine 10 MG CAPSULE PO SCH (09:00)
[2019-01-23] MEDS ORDERED: POLYETHYLENE GLYCOL 3350 17 GM PACKET PO SCH (09:00)
[2019-01-23] MEDS ORDERED: SACCHAROMYCES BOULARDII 250 MG CAPSULE PO SCH (09:00)
[2019-01-23] MEDS ORDERED: ENOXAPARIN 40 MG/0.4 ML SYRINGE SUBQ SCH (09:00)
--- NOTE | 2019-01-23 15:03 | Discharge Plan ---
Discharge Plan Disposition: 01 Home, Self Care Condition: Good Diet: Diabetic Activity Restrictions: Activity as Tolerated Shower Restrictions: No Instruction Topics: Nausea Vomit Control, Vomit Diarrhea Self Care Additional Instructions or Follow Up instructions: You were admitted with complaints of abdominal pain and unable to keep anything down. Your symptoms subsided after a few meals, so you are free to return home. Please follow up with your PCP later this week, and keep in contact with the art educator as usual. Follow-Up Care: [facility] - Diabetes Ed No Smoking: If you smoke, Please STOP! Call for help.
[2019-01-23 15:22] VITALS: BP 132/93
--- NOTE | 2019-01-23 18:57 | DISCHARGE SUMMARY ---
"Discharge Summary Admit Date: 01/23/19 Discharge Date: 01/23/19 Discharging Provider: JUAN Estevez Primary Care Provider: Zoey Kumar Code Status: Attempt Resuscitation Condition at Discharge: Good Discharge Disposition: 01 Home, Self Care - DIAGNOSES Admission Diagnoses: Hyperglycemia, unspecified (R73.9) Unspecified abdominal pain (R10.9) Nausea with vomiting, unspecified (R11.2) Major depressive disorder, single episode, unspecified (F32.9) Discharge Diagnoses with Status of Each Condition: Hyperglycemia, unspecified (R73.9) stable, chronic, no need for new insulin prescriptions Unspecified abdominal pain (R10.9) stable, improved, denies when asked Nausea with vomiting, unspecified (R11.2) resolved Major depressive disorder, single episode, unspecified (F32.9) chronic, stable Medically noncompliant (Z91.19) chronic, stable - HPI History of Present Illness: HPI per Dr. Brown: Patient seen on 01/23/19 at 0100 am Patient is a 18 y/o male with DM Type I who was discharged from the hospital 2 days ago. He presents with complaints of abdominal pain and unable to keep anything down. He is well known to the hospitalist service and frequently presents with the same complain. He reports taking his insulin (lantus 40 units subq qpm) on 01/21/19 but did not take it on 01/22/19. His blood glucose in the ED was 405 and he had small serum ketones. His mentation was intact. He denied chest pain or ÁNGELA. He reports being diaphoretic at home and also concerned about an infection. The rest of his history is unremarkable. He has very poor adherence to his diabetic management It is reported that he has returned to the ED in worsened condition after previous ED discharges He was presented for admission for concern of worsening clinical condition if discharged home. - CONSULTS | PROCEDURES Consultations: none - HOSPITAL COURSE Hospital Course: The patient quickly had a resolution of his presenting symptoms by the next morning and was discharged home per his request. He was tolerating meals, and had no further complaints. No new prescriptions were given. - ALLERGIES Allergies/Adverse Reactions: Allergies Allergy/AdvReac Type Severity Reaction Status Date / Time No Known Drug Allergies Allergy Verified 01/16/19 12:12 - MEDICATIONS Home Medications: Ambulatory Orders Medication Instructions Recorded Confirmed Insulin Aspart [NovoLOG] 0 - 7 units SUBQ TIDWM PRN 01/08/19 01/23/19 HYDROcod/ACETAM 5/325 [[place] 5/325] 1 each PO Q6H PRN #12 tablet 01/20/19 01/23/19 Insulin Glargine [Lantus Solostar] 40 units SUBQ QPM #4 pen 01/20/19 01/23/19 - PHYSICAL EXAM AT DISCHARGE General Appearance: positive: No acute distress, Alert Eyes Bilateral: positive: Normal inspection, PERRL ENT: positive: ENT inspection nml, Pharynx nml, No signs of dehydration Neck: positive: Nml inspection, Thyroid nml, No JVD, Trachea midline Respiratory: positive: Chest non-tender, No respiratory distress, Breath sounds nml Cardiovascular: positive: Regular rate & rhythm, No murmur, No gallop, Tachycardia Peripheral Pulses: positive: 2+ Abdomen: positive: Non-tender, No organomegaly, Nml bowel sounds, No distention, Guarding Back: positive: Nml inspection Skin: positive: Color nml, No rash, Warm, Dry Extremities: positive: Non-tender, Full ROM, Nml appearance, No pedal edema Neurologic/Psychiatric: positive: Oriented x3, CN's nml (2-12), Motor nml, Sensation nml, Depressed mood/affect Reflexes: Bicep (R): 3+, Bicep (L): 3+, Ankle (R): 2+, Ankle (L): 2+ - LABS Result Diagrams: 01/23/19 05:40 01/23/19 05:40 - FOLLOW UP Follow Up: Disposition: Home Condition: Good Diet: Diabetic Additional Instructions or Follow Up instructions: You were admitted with complaints of abdominal pain and unable to keep anything down. Your symptoms subsided after a few meals, so you are free to return home. Please follow up with your PCP later this week, and keep in contact with the weld inspector as usual. - TIME SPENT Time Spent in Discharge (Minutes): 35"
== END 2019-01-23 17:00 | disposition home or self-care (01) ==
LOC: EDUNIT# → ED 21:52 → MS2 01-23 00:13
PROVIDERS: ADMIT Internal Medicine; ATTEND Nurse Practitioner
DX: E10.65 Type 1 diabetes mellitus with hyperglycemia (principal); T38.3X6A Underdosing of insulin and oral hypoglycemic [antidiabetic] drugs, initial encounter; Z79.4 Long term (current) use of insulin; R10.13 Epigastric pain; R11.2 Nausea with vomiting, unspecified; F32.9 Major depressive disorder, single episode, unspecified; F41.9 Anxiety disorder, unspecified; E10.43 Type 1 diabetes mellitus with diabetic autonomic (poly)neuropathy; E10.51 Type 1 diabetes mellitus with diabetic peripheral angiopathy without gangrene; E10.42 Type 1 diabetes mellitus with diabetic polyneuropathy; K31.84 Gastroparesis; K21.9 Gastro-esophageal reflux disease without esophagitis; K52.9 Noninfective gastroenteritis and colitis, unspecified; R33.9 Retention of urine, unspecified; N28.9 Disorder of kidney and ureter, unspecified; N31.9 Neuromuscular dysfunction of bladder, unspecified; Z72.89 Other problems related to lifestyle
CPT/HCPCS: 36415; 80048; 80053; 80306; 80307; 80320; 80329; 81003; 82009; 82803; 83036; 83690; 85025; 96361; 96372; 96374; 96375; 96376; 99284; A9270; G0378; J1200; J1650; J1815; 81001; 87086; 99283

== ENCOUNTER 2019-01-26 02:41 | Outpatient (CLI) | payer MEDICAID | END 2019-01-26 02:42 | disposition critical access hospital (66) | LOC: EMS 02:41 | PROVIDERS: ATTEND Surgery | DX: R11.2 Nausea with vomiting, unspecified (principal); R52 Pain, unspecified | CPT/HCPCS: A0425; A0429; A0999 ==

== ENCOUNTER 2019-01-26 02:57 | Observation (INO) | payer MEDICAID ==
--- NOTE | 2019-01-26 03:04 | ED Physician Documentation ---
PD HPI BACK INJURY - Stated complaint Stated Complaint: ABD PAIN/NAUSEA - History obtained from History obtained from: Patient, EMS - History of Present Illness Location: Lower Type of injury: Fall (He states he was helping carry the bed frame or mattress down some stairs and lost balance and struck his back into the wall and railing. He is hurting in the right low lumbar area to midline predominantly. He denies any weakness or numbness of the legs. He is also having persistent nausea and vomiting and developed some general abdominal cramping and vomiting this evening. That is feeling similar to his vomiting and ketosis is had in the past. He states he has been taking his usual medications. He had not taken his evening Lantus however as yet.) Timing - onset: Today Timing - details: Abrupt onset, Still present, Waxing and waning Quality: Pain, Spasm Improved by: Rest Worsened by: Moving Associated symptoms: No: Fever, Weakness, Numbness, Incontinent of urine Similar symptoms before: Has not had sx before (He does not have ongoing back problems. He has had frequent recurrence of the nausea vomiting abdominal pain and DKA episodes.) Recently seen: Emergency Dept, Admitted (just a few days ago, and the week prior to that, and frequently in the past.) Review of Systems Constitutional: denies: Fever Nose: denies: Rhinorrhea / runny nose, Congestion Throat: denies: Sore throat Respiratory: denies: Cough GI: reports: Abdominal Pain, Nausea, Vomiting (Multiple episodes of vomiting this evening.). denies: Diarrhea Skin: denies: Abrasion (s), Laceration (s) Musculoskeletal: reports: Back pain. 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 EDUCATION: None : Retention, Renal insuffiency HEENT: Other Psych: Depression, Anxiety Musculoskeletal: None Derm: None - Past Surgical History Past Surgical History: No - Present Medications Home Medications: Ambulatory Orders Medication Instructions Recorded Confirmed Insulin Aspart [NovoLOG] 0 - 7 units SUBQ TIDWM PRN 01/08/19 01/23/19 HYDROcod/ACETAM 5/325 [[place] 5/325] 1 each PO Q6H PRN #12 tablet 01/20/19 01/23/19 Insulin Glargine [Lantus Solostar] 40 units SUBQ QPM #4 pen 01/20/19 01/23/19 - Allergies Allergies/Adverse Reactions: Allergies Allergy/AdvReac Type Severity Reaction Status Date / Time No Known Drug Allergies Allergy Verified 01/16/19 12:12 - Social History Does the pt smoke?: No Smoking Status: Current some day smoker Does the pt drink ETOH?: Yes Does the pt have substance abuse?: Yes - Immunizations Immunizations are current?: Yes - POLST Patient has POLST: No POLST Status: Full Code PD ED PE NORMAL - Vitals Vital signs reviewed: Yes - General General: Alert and oriented X 3, Well developed/nourished, Other (appears in pain from abd and low back. Complains more of the back pain. ) - HEENT HEENT: Atraumatic, Pharynx benign. No: Moist mucous membranes - Neck Neck: Supple, no meningeal sign, No bony TTP, No adenopathy - Cardiac Cardiac: RRR (mild tachycardia), No murmur - Respiratory Respiratory: Clear bilaterally - Abdomen Abdomen: Normal bowel sounds, Soft, Non distended, No organomegaly, Other (He is tender in the mid to the epigastric area with guarding. There is no percussion or rebound tenderness however. On the back exam there is some tenderness in the mid to lower lumbar area in the midline vertebral area and also to the right lower muscles. There is no CVA tenderness area per se) - Male Male : Deferred - Rectal Rectal: Deferred - Back Back: No CVA TTP - Derm Derm: Normal color, Warm and dry, No rash - Extremities Extremities: No deformity, No tenderness to palpate, Normal ROM s pain, No edema, No calf tenderness / cord - Neuro 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, No motor deficit, No sensory deficit Eye Opening: Spontaneous - Psych Psych: Normal mood. No: Normal affect (somewhat anxious) Results - Vitals Vitals: Vital Signs - 24 hr 01/26/19 01/26/19 01/26/19 02:59 03:23 04:51 Temperature 36.3 C L Heart Rate 102 H 108 H 110 H Respiratory 18 16 18 Rate Blood Pressure 123/95 H 123/95 H 148/112 H O2 Saturation 100 93 100 Oxygen O2 Source Room air - Labs Labs: Laboratory Tests 01/26/19 01/26/19 01/26/19 03:20 03:20 03:20 WBC 7.4 RBC 4.28 L Hgb 12.0 L Hct 36.8 L MCV 86.1 MCH 28.1 MCHC 32.7 RDW 13.2 Plt Count 595 H MPV 7.1 L Neut # (Auto) 5.6 Lymph # (Auto) 1.4 L Chase # (Auto) 0.2 Eos # (Auto) 0.1 Baso # (Auto) 0.1 Absolute Nucleated RBC 0.00 Nucleated RBC % 0.1 VBG pH 7.389 VBG pCO2 38.2 L VBG pO2 24.1 L VBG HCO3 22.6 L VBG Total CO2 23.7 L VBG O2 Saturation 42.5 L VBG Base Excess -2.1 L Sodium 131 L Potassium 5.0 Chloride 88 L Carbon Dioxide 26 Anion Gap 17.0 H BUN 19 Creatinine 0.7 Estimated GFR (MDRD) 144 Glucose 583 H* Calcium 10.1 Magnesium 2.5 Total Bilirubin 0.4 AST 14 ALT 12 Alkaline Phosphatase 99 Total Protein 8.7 H Albumin 3.5 Globulin 5.2 H Albumin/Globulin Ratio 0.7 L Lipase 38 Serum Ketones 01/26/19 03:20 WBC RBC Hgb Hct MCV MCH MCHC RDW Plt Count MPV Neut # (Auto) Lymph # (Auto) Chase # (Auto) Eos # (Auto) Baso # (Auto) Absolute Nucleated RBC Nucleated RBC % VBG pH VBG pCO2 VBG pO2 VBG HCO3 VBG Total CO2 VBG O2 Saturation VBG Base Excess Sodium Potassium Chloride Carbon Dioxide Anion Gap BUN Creatinine Estimated GFR (MDRD) Glucose Calcium Magnesium Total Bilirubin AST ALT Alkaline Phosphatase Total Protein Albumin Globulin Albumin/Globulin Ratio Lipase Serum Ketones SMALL H - Rads (name of study) lumbar CT Radiology: Prelim report reviewed (no acute fractures/ abnormalities), See rad report PD MEDICAL DECISION MAKING - ED course Complexity details: re-evaluated patient (Stepwise improvement in his back and belly pain and nausea with medications. He is given IV fluids. His blood sugar was initially elevated at 500 and it came down to 300 with fluids and some IV insulin. Will try him a fluid and food challenge at this point. He did have small ketones on his blood testing but was not acidotic. We will see how he does symptom pereira. He has had a few doses of antiemetics so oral intake at this point will be the crux of disposition.), considered differential (Combination of new injury with some lumbar and paralumbar muscle pain. He also has his common abdominal pain with nausea and vomiting. We will check labs to see if he is ketotic or acidotic. He commonly is hyperglycemic.), d/w patient ED course: He has had several doses of antiemetics as well as H2 sujit. He was just shortly ago offered some sips of water and crackers as his nausea was decreased after medications. He had only taken a little bit of the water and crackers and states his epigastric pain increased and he did have emesis of approximately 50 to 60 cc of vomit. There is no blood in it and it did not seem bilious. Teresa coppola is still unable to tolerate oral intake. He did have presence of ketones in his serum. His pH on blood gas however was not acidotic. At this point he is not stable for discharge. Departure - Departure Disposition: [facility] DC/Xfer Clinical Impression: Ketosis due to diabetes Intractable nausea and vomiting Qualifiers: Vomiting type: unspecified Qualified Code(s): R11.2 - Nausea with vomiting, unspecified Diabetes type 1, uncontrolled Qualifiers: Glycemic state: with hyperglycemia Qualified Code(s): E10.65 - Type 1 diabetes mellitus with hyperglycemia Lumbar contusion Qualifiers: Encounter type: initial encounter Qualified Code(s): S30.0XXA - Contusion of lower back and pelvis, initial encounter Condition: Stable Record reviewed to determine appropriate education?: Yes
[2019-01-26] MEDS ORDERED: SODIUM CHLORIDE 0.9% 1,000 ML IV ONE ×2 (03:09→04:38)
[2019-01-26] MEDS ORDERED: ONDANSETRON 4 MG/2 ML VIAL IVP STA (03:10)
[2019-01-26] MEDS ORDERED: HYDROmorphone 1 MG/ML CARPUJECT IVP STA (03:13)
[2019-01-26] MEDS ORDERED: KETOROLAC 15 MG/ML VIAL IVP STA (03:13)
[2019-01-26 03:37] LABS: VBG BASE EXCESS -2.1 mmol/L (-2 - +2); VBG PCO2 38.2 mmHg (41-51); VBG PH 7.389 (7.31-7.41); VBG PO2 24.1 mmHg (25-47); VBG TOTAL CO2 23.7 mmol/L (24-29)
[2019-01-26 03:50] LABS: BASOPHILS # (AUTO) 0.1 10^3/uL (0.0-0.1); BASOPHILS % (AUTO) 1.5 %; EOSINOPHILS # (AUTO) 0.1 10^3/uL (0.0-0.7); LYMPHOCYTES # (AUTO) 1.4 10^3/uL (1.5-3.5); LYMPHOCYTES % (AUTO) 18.9 %; MEAN CORPUSCULAR HEMOGLOBIN 28.1 pg (27.0-31.0); MEAN CORPUSCULAR HGB CONC 32.7 g/dL (32.0-36.0); MEAN CORPUSCULAR VOLUME 86.1 fL (80.0-94.0); MEAN PLATELET VOLUME 7.1 fL (7.4-11.4); MONOCYTES # (AUTO) 0.2 10^3/uL (0.0-1.0); MONOCYTES % (AUTO) 3.2 %; NEUTROPHILS # (AUTO) 5.6 10^3/uL (1.5-6.6); NEUTROPHILS % (AUTO) 75.4 %; PLT - PLATELET COUNT 595 10^3/uL (130-450); RED BLOOD COUNT 4.28 10^6/uL (4.70-6.10); RED CELL DISTRIBUTION WIDTH 13.2 % (12.0-15.0); WHITE BLOOD COUNT 7.4 x10^3/uL (4.8-10.8)
[2019-01-26] MEDS ORDERED: diphenhydrAMINE INJ 50 MG/ML VIAL IVP STA (04:00)
[2019-01-26 04:02] LABS: ALBUMIN 3.5 g/dL (3.2-5.5); ALBUMIN/GLOBULIN RATIO 0.7 (1.0-2.2); BILIRUBIN,TOTAL 0.4 mg/dL (0.2-1.0); CALCIUM 10.1 mg/dL (8.5-10.3); CREATININE 0.7 mg/dL (0.6-1.2); MAGNESIUM 2.5 mg/dL (1.7-2.8); TOTAL PROTEIN 8.7 g/dL (6.7-8.2)
[2019-01-26] MEDS ORDERED: INSULIN REGULAR HUMAN 100 UNIT/1 ML 10 ML MDV IVP STA (04:12)
--- NOTE | 2019-01-26 04:12 | CT Report ---
Reason: fell on stairs and struck low back, pain left lumb Procedure Date: 01/26/2019 Accession Number: [id number] / [id number] Procedure: CT - LUMBAR SPINE WO CPT Code: FULL RESULT: EXAM: CT LUMBAR SPINE WITHOUT CONTRAST EXAM DATE: 01/26/2019 03:40 AM. CLINICAL HISTORY: Low back pain after fall. COMPARISONS: None. TECHNIQUE: Thin-section axial images were acquired of the lumbar spine from T12 to S1 without contrast. Post-processing: Coronal and sagittal reformats. Other: None. In accordance with CT protocol optimization, one or more of the following dose reduction techniques were utilized for this exam: automated exposure control, adjustment of mA and/or KV based on patient size, or use of iterative reconstructive technique. FINDINGS: Alignment: No scoliosis or spondylolisthesis. Bones: Five [id number] lumbar vertebral bodies are present. No fractures or bone lesions. Disk Levels/Facets: T12-L1: Unremarkable. L1-L2: Unremarkable. L2-L3: Unremarkable. L3-L4: Unremarkable. L4-L5: Unremarkable. L5-S1: Unremarkable. Musculature: Normal. No fatty atrophy. Other: The visualized retroperitoneum is unremarkable. IMPRESSION: Normal lumbar spine CT. No evidence of lumbar spine fracture or subluxation. RADIA
[2019-01-26] MEDS ORDERED: HYDROmorphone 2 MG/ML VIAL IVP STA (04:38)
[2019-01-26] MEDS ORDERED: METOCLOPRAMIDE 10 MG/2 ML VIAL IVP STA ×2 (04:38→06:25)
[2019-01-26] MEDS ORDERED: MAG HYDROX/AL HYDROX/SIMETH 30 ML UDC PO STA (05:55)
[2019-01-26] MEDS ORDERED: FAMOTIDINE 20 MG/2 ML VIAL IVP STA (05:55)
[2019-01-26] MEDS ORDERED: LIDOCAINE PATCH 5% TOP STA (06:37)
[2019-01-26] MEDS ORDERED: PROCHLORPERAZINE 10 MG/2 ML VIAL IVP PRN (06:37)
[2019-01-26] MEDS ORDERED: ONDANSETRON ODT 4 MG TABLET TL PRN (06:37)
[2019-01-26] MEDS ORDERED: SODIUM CHLORIDE FLUSH 0.9% 10 ML SYRINGE IVP PRN (06:37)
[2019-01-26] MEDS ORDERED: ONDANSETRON 4 MG/2 ML VIAL IVP PRN (06:37)
[2019-01-26] MEDS ORDERED: diphenhydrAMINE INJ 50 MG/ML VIAL IVP PRN (07:21)
[2019-01-26 07:45] VITALS: BP 122/86
[2019-01-26] MEDS ORDERED: HALOPERIDOL 5 MG/ML VIAL IM ONE (08:00)
[2019-01-26] MEDS ORDERED: SODIUM CHLORIDE 0.9% 1,000 ML IV SCH (08:00)
[2019-01-26] MEDS ORDERED: PANTOPRAZOLE 40 MG VIAL IVP SCH (08:00)
[2019-01-26] MEDS ORDERED: INSULIN GLARGINE 300 UNIT/3 ML PEN SUBQ ONE (08:00)
[2019-01-26] MEDS ORDERED: INSULIN REGULAR HUMAN 100 UNIT/1 ML 10 ML MDV SUBQ SCH ×2 (08:00→12:00)
[2019-01-26] MEDS ORDERED: METHOCARBAMOL 500 MG TABLET PO PRN (08:02)
[2019-01-26] MEDS ORDERED: ACETAMINOPHEN 325 MG TABLET PO PRN (08:03)
--- NOTE | 2019-01-26 08:05 | HISTORY & PHYSICAL EXAMINATION ---
Chief Complaint - Chief Complaint Chief Complaint: left lower back pain, intractable N/V History of Present Illness - Admitted From Admitted From:: ED - History Obtained From Records Reviewed: yes History obtained from: patient Exam Limitations: none - History of Present Illness HPI Comment/Other: Thomas Kearney is an unfortunate 18-year old male who is well known to this hospital and has a past medical history of poorly controlled diabetes mellitus type 1, poor social support, protein calorie malnutrition, polysubstance abuse, right eye cellulitis, insomnia, diabetic peripheral neuropathy, gastroparesis, neurogenic bladder, urinary retention, medical non-compliance, passive suicidal ideation, major depressive disorder, GERD, sepsis requiring IV therapy, MRSA, GI bleeding, and chronic abdominal pain. The patient was brought in via EMS after sustaining a fall while helping his cousin lift a bed frame in which he struck his left mid-lower back on the wall, and fell to the floor. He states that he tried to lie down for about an hour, but his back pain became worse, so EMS was called. Once in the ED, he had his usual nausea, vomiting, and abdominal pain. A lumbar spinal CT without contrast showed no acute fractures. Labs showed a sodium of 131, potassium of 5.0, chloride of 88, carbon dioxide of 26, anion gap of 17, BUN 19, creatinine of 0.7, GFR 144, glucose of 583, A1C of 12.4%, with no other lab abnormalities. He denied hematuria prior to coming in, syncope, headaches, chest pain, diarrhea, a rash, or a new cough. Once getting to the nursing floor, and after his narcotics wore off, he was ready to return home as the Hospitalist policy does not allow for narcotic or benzo administration. He was given one dose of Robaxin, and a prescriptions was sent to [facility] to be taken at home. History - Past Medical History Cardiovascular: reports: Hypertension, Peripheral Vascular Disease Respiratory: reports: None Neuro: reports: Peripheral neuropathy, Other Endocrine/Autoimmune: reports: Type 1 diabetes GI: reports: GERD, GI bleed, Chronic diarrhea SOFTWARE CONSULTANT: reports: None : reports: Retention, Renal insuffiency Psych: reports: Depression, Anxiety Musculoskeletal: reports: None Derm: reports: None MRSA Hx?: Yes - Past Surgical History General: reports: Colonoscopy, EGD - Family & Social History Family History: Mother: Alive and Well, Diabetes, Type 2 (grandmother), Other family: Diabetes, Type 2 Family History Comment/Other: Neg for gallbladder disease and GI tumors Living arrangement: At home Living Situation: With family Social History Notes: The patient is originally from [place] but has been living on [facility] for the last 3 years with his aunt. The patient also spent some time in [place]. Patient has had multiple hospitalizations for diabetic ketoacidosis within the last 2-3 years. Patient was diagnosed with diabetes at the age of 3. The patient is single and does not have any children. He does not smoke tobacco and rarely drinks alcohol. The patient does state he occasionally smokes marijuana but denies any other illicit drug use. - Substance History Use: Uses substance without health or social issues: Alcohol, Amphetamine, Cannabis (pt may have hyperemesis related to cannabis, continues to smoke marijuana) Use Issues: Anxiety Disorder, Mood Disorder Abuse: Recurrent use of substance despite neg consequences: Amphetamine, Cannabis Abuse Issues: Anxiety Disorder, Mood Disorder Dependence: Experiences withdrawal or developed tolerances: NONE - POLST Patient has POLST: No POLST Status: Full Code Meds/Allgy - Home Medications Home Medications: Ambulatory Orders Medication Instructions Recorded Confirmed Insulin Aspart [NovoLOG] 0 - 7 units SUBQ TIDWM PRN 01/08/19 01/23/19 Insulin Glargine [Lantus Solostar] 40 units SUBQ QPM #4 pen 01/20/19 01/23/19 Fluoxetine HCl [Prozac] 40 mg PO DAILY 01/26/19 01/26/19 Methocarbamol [Robaxin] 500 mg PO Q6H #30 tablet 01/26/19 - Allergies Allergies/Adverse Reactions: Allergies Allergy/AdvReac Type Severity Reaction Status Date / Time No Known Drug Allergies Allergy Verified 01/16/19 12:12 Review of Systems - Constitutional Constitutional: reports: Weakness, Poor appetite - Gastrointestinal Gastrointestinal: reports: Nausea - Genitourinary Genitourinary: reports: Nocturia - Musculoskeletal Musculoskeletal: reports: Back pain, Limited range of motion - Integumentary Integumentary: reports: Dryness - Neurological Neurological: reports: Focal weakness, Pre-existing deficit - Psychiatric Psychiatric: reports: Depression, Anxiety - Hematologic/Lymphatic Hematologic/Lymphatic: reports: Recurrent infections - All Other Systems All Other Systems: reports: Reviewed and negative Prior Level of Functionality: Ambulatory, more recent falls Exam - Vital Signs Reviewed Vital Signs: Yes Vital Signs: Vital Signs x48h Temp Pulse Pulse Resp BP BP Pulse Ox 01/26/19 07:44 36.6 C 92 17 122/86 H 100 01/26/19 07:17 82 17 133/98 H 99 01/26/19 04:51 110 H 18 148/112 H 100 01/26/19 03:23 108 H 16 123/95 H 93 01/26/19 02:59 36.3 C L 102 H 18 123/95 H 100 - Physical Exam General Appearance: positive: No acute distress, Alert Eyes Bilateral: positive: PERRL ENT: positive: Pharynx nml, Dry mucous membranes Neck: positive: Thyroid nml, No JVD, Trachea midline Respiratory: positive: Chest non-tender, No respiratory distress, Breath sounds nml Cardiovascular: positive: Regular rate & rhythm, No gallop, Tachycardia Peripheral Pulses: positive: 2+ Abdomen: positive: Non-tender, Nml bowel sounds Back: positive: Nml inspection, CVA tenderness (L) Skin: positive: Color nml, No rash, Warm, Dry Extremities: positive: Non-tender, Full ROM, Nml appearance, No pedal edema Neurologic/Psychiatric: positive: Oriented x3, CN's nml (2-12), Motor nml, Sensation nml, Depressed mood/affect Reflexes: Bicep (R): 3+, Bicep (L): 3+ Conclusion/Plan - Problem List (1) Lumbar contusion Conclusion/Plan: - fell while helping his cousin lift a bed frame - landed against the nearby wall, the fell to the floor - Tried to lye down for about an hour, then called EMS - Imaging confirmed no fractures - Tenderness noted on exam Plan: Teaching given, Robaxin x1 given prior to discharge, prescription sent to [id number] Qualifiers: Encounter type: initial encounter Qualified Code(s): S30.0XXA - Contusion of lower back and pelvis, initial encounter (2) Fall Conclusion/Plan: - Patient denies hitting his head, previously has hit his head - Left mid-lower back injury as a consequence of this fall Plan: Continue to monitor, seemed to be ambulating well prior to discharge Qualifiers: Encounter type: subsequent encounter Qualified Code(s): W19.XXXD - Unspecified fall, subsequent encounter (3) Diabetes type 1, uncontrolled Conclusion/Plan: - A1C was elevated at 12.4% today - Admitting glucose was 583, came down to 282 prior to his meal Plan: Continue Lantus, SSI, and carb controlled diet Qualifiers: Glycemic state: with hyperglycemia Qualified Code(s): E10.65 - Type 1 diabetes mellitus with hyperglycemia (4) Intractable nausea and vomiting Conclusion/Plan: - 1 episode of emesis in the ED - Symptoms relieved by his initial exam - Tolerating a meal Plan: Continue to treat, monitor Qualifiers: Vomiting type: unspecified Qualified Code(s): R11.2 - Nausea with vomiting, unspecified (5) Noncompliance with diabetes treatment Conclusion/Plan: - Several years of non- compliance resulting in multiple hospital stays/ ED visits Plan: Continue to encourage compliance to reduce hospital stays (6) Depression Conclusion/Plan: - Prescribed Prozac at home - Patient states that he has not taken this medication for the past 2 weeks Plan: Continue to encourage use of Prozac and outpatient psycho therapy Qualifiers: Depression Type: unspecified Qualified Code(s): F32.9 - Major depressive disorder, single episode, unspecified (7) Peripheral neuropathy Conclusion/Plan: - No changes in this condition as a result of his fall - States that he no longer takes the gabapentin at home Plan: Continue to monitor Qualifiers: Peripheral neuropathy type: polyneuropathy associated with underlying disease Qualified Code(s): G63 - Polyneuropathy in diseases classified elsewhere - Lab Results Lab results reviewed: Yes Fish Bones: 01/26/19 03:20 01/26/19 03:20 - Diagnostic Imaging Results Diagnostic Imaging Results: positive: Prelim report reviewed Core Measures - Anticipated LOS I expect patient to be DC'd or transferred within 96 hours.: Yes - DVT/VTE - Prophylaxis VTE/DVT Device ordered at admit?: Yes VTE/DVT Prophylaxis med ordered at admit?: Yes - Stroke - Rehab Assessment Rehab services assessment to be ordered?: No Not Ordered - Medical Reason: Contraindicated - AMI - Statin at Admit Aspirin Prescribed on Admit: Yes
--- NOTE | 2019-01-26 08:16 | Discharge Plan ---
Discharge Plan Disposition: 01 Home, Self Care Condition: Good Prescriptions: Methocarbamol [Robaxin] 500 mg PO Q6H #30 tablet Diet: Diabetic Activity Restrictions: Activity as Tolerated Shower Restrictions: No Weight Bearing: Full Weight Additional Instructions or Follow Up instructions: You were brought to the ED after falling and injuring your left lower back. Since your symptoms of nausea and vomiting subsided, you are free to go home. Please go to a near by clinic if the pain becomes worse, if you start to urinate blood, or if you have any difference in sensation to either leg. Please see your PCP and medical educator within one week. Follow-Up Care: [facility] - Diabetes Ed No Smoking: If you smoke, Please STOP! Call for help.
[2019-01-26 08:19] LABS: HB2 TOTAL 12.6 g/dL; HEMOGLOBIN A1C 1.41 g/dL; HEMOGLOBIN A1C % 12.4 % (4.6-6.2)
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
[2019-01-26] MEDS ORDERED: POLYETHYLENE GLYCOL 3350 17 GM PACKET PO SCH (09:00)
[2019-01-26] MEDS ORDERED: SODIUM CHLORIDE FLUSH 0.9% 10 ML SYRINGE IVP SCH (09:00)
[2019-01-26] MEDS ORDERED: INSULIN GLARGINE 300 UNIT/3 ML PEN SUBQ SCH (21:00)
== END 2019-01-26 10:10 | disposition home or self-care (01) ==
LOC: EDUNIT# → ED 02:57 → ICU 06:37
PROVIDERS: ADMIT Nurse Practitioner; ATTEND Nurse Practitioner
DX: S30.0XXA Contusion of lower back and pelvis, initial encounter (principal); W18.39XA Other fall on same level, initial encounter; Y93.89 Activity, other specified; E10.10 Type 1 diabetes mellitus with ketoacidosis without coma; Z79.4 Long term (current) use of insulin; R11.2 Nausea with vomiting, unspecified; Z91.14 Patient's other noncompliance with medication regimen; F32.9 Major depressive disorder, single episode, unspecified; E10.43 Type 1 diabetes mellitus with diabetic autonomic (poly)neuropathy; F15.10 Other stimulant abuse, uncomplicated; F12.10 Cannabis abuse, uncomplicated; F15.180 Other stimulant abuse with stimulant-induced anxiety disorder; F19.14 Other psychoactive substance abuse with psychoactive substance-induced mood disorder; N28.9 Disorder of kidney and ureter, unspecified
CPT/HCPCS: 36415; 72131; 80053; 82009; 82803; 83036; 83690; 83735; 85025; 99284

== ENCOUNTER 2019-01-26 11:33 | Observation (INO) | payer MEDICAID ==
[2019-01-26 12:40] LABS: BASOPHILS # (AUTO) 0.1 10^3/uL (0.0-0.1); EOSINOPHILS % (AUTO) 0.6 %; HGB - HEMOGLOBIN 12.5 g/dL (14.0-18.0); LYMPHOCYTES # (AUTO) 1.3 10^3/uL (1.5-3.5); LYMPHOCYTES % (AUTO) 16.3 %; MEAN CORPUSCULAR HEMOGLOBIN 27.5 pg (27.0-31.0); MEAN CORPUSCULAR HGB CONC 32.8 g/dL (32.0-36.0); MEAN PLATELET VOLUME 6.9 fL (7.4-11.4); MONOCYTES # (AUTO) 0.3 10^3/uL (0.0-1.0); MONOCYTES % (AUTO) 3.2 %; NEUTROPHILS # (AUTO) 6.3 10^3/uL (1.5-6.6); NEUTROPHILS % (AUTO) 78.9 %; PLT - PLATELET COUNT 627 10^3/uL (130-450); RED BLOOD COUNT 4.53 10^6/uL (4.70-6.10); RED CELL DISTRIBUTION WIDTH 13.1 % (12.0-15.0)
[2019-01-26 12:44] LABS: VBG PCO2 42.4 mmHg (41-51); VBG PH 7.409 (7.31-7.41)
[2019-01-26 12:45] LABS: VBG BASE EXCESS 1.4 mmol/L (-2 - +2); VBG PO2 39.8 mmHg (25-47); VBG TOTAL CO2 27.5 mmol/L (24-29)
[2019-01-26] MEDS ORDERED: diphenhydrAMINE INJ 50 MG/ML VIAL IV STA (12:47)
[2019-01-26] MEDS ORDERED: SODIUM CHLORIDE 0.9% 1,000 ML IV ONE ×2 (12:47→15:49)
[2019-01-26] MEDS ORDERED: PROMETHAZINE INJ 25 MG in SODIUM CHLORIDE 0.9% 50 ML IV STA (12:47)
[2019-01-26 12:49] LABS: ALBUMIN 3.3 g/dL (3.2-5.5); ALBUMIN/GLOBULIN RATIO 0.7 (1.0-2.2); ALKALINE PHOSPHATASE 89 IU/L (42-121); ALT ALANINE AMINOTRANSFERASE 12 IU/L (10-60); AST ASPARTATE AMINOTRANSFERASE 13 IU/L (10-42); BILIRUBIN,TOTAL 0.8 mg/dL (0.2-1.0); BUN - BLOOD UREA NITROGEN 15 mg/dL (6-20); CALCIUM 9.2 mg/dL (8.5-10.3); CARBON DIOXIDE - CO2 26 mmol/L (21-32); CHLORIDE 96 mmol/L (101-111); CREATININE 0.5 mg/dL (0.6-1.2); GFR - MDRD 212 (>89); GLUCOSE 248 mg/dL (70-100); LIPASE 21 U/L (22-51); SODIUM 138 mmol/L (135-145); TOTAL PROTEIN 8.3 g/dL (6.7-8.2)
[2019-01-26 12:56] LABS: KETONES, SERUM (ACETEST) SMALL (NEGATIVE)
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
[2019-01-26] MEDS ORDERED: HALOPERIDOL 5 MG/ML VIAL IVP STA (14:47)
[2019-01-26] MEDS ORDERED: ONDANSETRON 4 MG/2 ML VIAL IVP STA (14:47)
[2019-01-26] MEDS ORDERED: PROCHLORPERAZINE 10 MG/2 ML VIAL IVP PRN (16:03)
[2019-01-26] MEDS ORDERED: ACETAMINOPHEN 325 MG TABLET PO PRN (16:03)
[2019-01-26] MEDS ORDERED: ONDANSETRON 4 MG/2 ML VIAL IVP PRN (16:03)
--- NOTE | 2019-01-26 16:06 | HISTORY & PHYSICAL EXAMINATION ---
Chief Complaint - Chief Complaint Chief Complaint: N/V, abdominal pain, not tolerating meals Abdominal Pain HPI - Admitted From Admitted from: ED - History Obtained From Records Reviewed: RN notes reviewed, Old records reviewed History obtained from: Patient Exam limitations: Other (mental state) - History of Present Illness Severity at the worst: Severe Pain Quality: Cramping Context-Pain started w/: Eating, Position Timing: Gradual onset, Constant Duration: Days: (2) Improved with: Nothing Worsened by: Eating, Movement Associated symptoms: Diaphoresis, Nausea, Vomiting, Feeling faint / dizzy, General Weakness HPI Comment/Other: Thomas Kearney is an unfortunate 18-year old male who is well known to this hospital and has a past medical history of poorly controlled diabetes mellitus type 1, poor social support, protein calorie malnutrition, polysubstance abuse, right eye cellulitis, insomnia, diabetic peripheral neuropathy, gastroparesis, neurogenic bladder, urinary retention, medical non-compliance, passive suicidal ideation, major depressive disorder, GERD, sepsis requiring IV therapy, MRSA, GI bleeding, and chronic abdominal pain. The patient was brought in via EMS early this AM after sustaining a fall while helping his cousin lift a bed frame in which he struck his left mid-lower back on the wall, and fell to the floor. He states that he tried to lie down for about an hour, but his back pain became w orse, so EMS was called. Once in the ED, he had his usual nausea, vomiting, and abdominal pain. A lumbar spinal CT without contrast showed no acute fractures. He was admitted to the Hospitalist service and after arriving to the nursing floor and after his narcotics wore off, he was ready to return home as the Hospitalist plan of care does not allow for narcotic or benzo administration. He was given one dose of Robaxin, and a prescriptions was sent to [facility] to be taken at home. He arrived via wheelchair back to the ED ~ 2 hours later from the time of discharge with complaints of uncontrolled nausea, vomiting, and continued low back pain. Labs were very similar to earlier, and showed a sodium of 138, potassium of 3.3, chloride of 96, carbon dioxide of 26, anion gap of 16, BUN 15, creatinine of 0.5, GFR 212, glucose of 248, A1C of 12.4%, WBC count of 8.0, hgb 12.5, hct 38.0, platelets 627, normal blood gases, and no other lab abnormalities. He denied hematuria prior to coming in, syncope, headaches, chest pain, diarrhea, a rash, or a new cough. He is agreeable to stay at least one night for further symptom management with his main complicating chronic illness being DM type 1 making it more detrimental with not eating or drinking. He is admitted for an observation stay, and a [facility] drug screen is ordered. 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: positive: None : positive: Retention, Renal insuffiency HEENT: positive: Other Psych: positive: Depression, Anxiety, Post traumatic stress disorder Musculoskeletal: positive: None Derm: positive: None MRSA Hx?: Yes Other Past Medical History: gastroparesis - Past Surgical History General: positive: Colonoscopy, EGD Social & Family Hx - Living Situation Living Arrangement: At home Living Situation: With family - Social History Does the pt smoke?: Yes Smoking Status: Current every day smoker Does the pt drink ETOH?: Yes Does the pt have substance abuse?: Yes Substance Use and Type: Marijuana, Meth - POLST Patient has POLST: No POLST Status: Full Code - Family History Family History: Mother: Alive and Well Meds/Allgy - Home Medications Home Medications: Ambulatory Orders Medication Instructions Recorded Confirmed Insulin Aspart [NovoLOG] 0 - 7 units SUBQ TIDWM PRN 01/08/19 01/26/19 Insulin Glargine [Lantus Solostar] 40 units SUBQ QPM #4 pen 01/20/19 01/26/19 Fluoxetine HCl [Prozac] 40 mg PO DAILY 01/26/19 01/26/19 Methocarbamol [Robaxin] 500 mg PO Q6H #30 tablet 01/26/19 01/26/19 - Allergies Allergies/Adverse Reactions: Allergies Allergy/AdvReac Type Severity Reaction Status Date / Time No Known Drug Allergies Allergy Verified 01/26/19 11:46 Review of Systems - Constitutional Constitutional: reports: Fatigue, Weakness, Poor appetite, Diaphoresis - Eyes Eyes: reports: Vision loss - Cardiovascular Cariovascular: reports: Lightheadedness - Respiratory Respiratory: reports: Cough - Gastrointestinal Gastrointestinal: reports: Abdominal pain, Change in bowel habits, Nausea, Vomiting, Reflux/heartburn, Bloating, Poor appetite - Genitourinary Genitourinary: reports: Dysuria, Flank pain (left flank related to prior fall with injury to low back) - Musculoskeletal Musculoskeletal: reports: Back pain, Muscle aches, Muscle weakness - Integumentary Integumentary: reports: Dryness - Neurological Neurological: reports: General weakness, Pre-existing deficit - Psychiatric Psychiatric: reports: Depression, Anxiety - Hematologic/Lymphatic Hematologic/Lymphatic: reports: Anemia, Recurrent infections - All Other Systems All Other Systems: reports: Reviewed and negative Prior Level of Functionality: Ambulates independently, no devices used. Recent falls Exam - Vital Signs Reviewed Vital Signs: Yes Vital Signs: Vital Signs x48h Temp Pulse Resp BP Pulse Ox 01/26/19 15:34 107 H 17 155/106 H 95 01/26/19 15:02 110 H 16 159/112 H 100 01/26/19 14:00 111 H 20 166/114 H 100 01/26/19 11:43 36.6 C 105 H 16 160/96 H 100 - Physical Exam General Appearance: positive: Alert, Moderate distress, Anxious, Lethargic Eyes Bilateral: positive: PERRL ENT: positive: Pharynx nml, Dry mucous membranes Neck: positive: No JVD, Trachea midline Respiratory: positive: Chest non-tender, No respiratory distress, Breath sounds nml Cardiovascular: positive: Regular rate & rhythm, Tachycardia, Systolic murmur Peripheral Pulses: positive: 1+ Abdomen: positive: Tenderness, Guarding, Abnml bowel sounds Back: positive: Nml inspection Skin: positive: No rash, Warm, Dry, Pallor Extremities: positive: Non-tender, No pedal edema Neurologic/Psychiatric: positive: Oriented x3, CN's nml (2-12), Motor nml, Sensory loss, Depressed mood/affect Reflexes: Bicep (R): 3+, Bicep (L): 3+ Results - Lab Results Lab results reviewed: Yes Fish Bones: 01/26/19 11:25 01/26/19 11:25 Other Lab Results: Lab Results x24hrs 01/26/19 01/26/19 01/26/19 Range/Units 12:32 11:25 11:25 WBC 8.0 (4.8-10.8) x10^3/uL RBC 4.53 L (4.70-6.10) 10^6/uL Hgb 12.5 L (14.0-18.0) g/dL Hct 38.0 L (42.0-52.0) % MCV 84.0 (80.0-94.0) fL MCH 27.5 (27.0-31.0) pg MCHC 32.8 (32.0-36.0) g/dL RDW 13.1 (12.0-15.0) % Plt Count 627 H (130-450) 10^3/uL MPV 6.9 L (7.4-11.4) fL Neut # (Auto) 6.3 (1.5-6.6) 10^3/uL Lymph # (Auto) 1.3 L (1.5-3.5) 10^3/uL [place] # (Auto) 0.3 (0.0-1.0) 10^3/uL Eos # (Auto) 0.0 (0.0-0.7) 10^3/uL Baso # (Auto) 0.1 (0.0-0.1) 10^3/uL Absolute Nucleated RBC 0.00 x10^3/uL Nucleated RBC % 0.0 /100WBC VBG pH 7.409 (7.31-7.41) VBG pCO2 42.4 (41-51) mmHg VBG pO2 39.8 (25-47) mmHg VBG HCO3 26.2 (23-28) mmol/L VBG Total CO2 27.5 (24-29) mmol/L VBG O2 Saturation 77.7 (60-80) % VBG Base Excess 1.4 (-2 - +2) mmol/L Sodium 138 (135-145) mmol/L Potassium 3.3 L (3.5-5.0) mmol/L Chloride 96 L (101-111) mmol/L Carbon Dioxide 26 (21-32) mmol/L Anion Gap 16.0 H (6-13) BUN 15 (6-20) mg/dL Creatinine 0.5 L (0.6-1.2) mg/dL Estimated GFR (MDRD) 212 (>89) Glucose 248 H (70-100) mg/dL Calcium 9.2 (8.5-10.3) mg/dL Total Bilirubin 0.8 (0.2-1.0) mg/dL AST 13 (10-42) IU/L ALT 12 (10-60) IU/L Alkaline Phosphatase 89 (42-121) IU/L Total Protein 8.3 H (6.7-8.2) g/dL Albumin 3.3 (3.2-5.5) g/dL Globulin 5.0 H (2.1-4.2) g/dL Albumin/Globulin Ratio 0.7 L (1.0-2.2) Lipase 21 L (22-51) U/L Serum Ketones SMALL H (NEGATIVE) Impression/Plan - Problem List Problem List: ASSESSMENT AND PLAN: (1) Intractable nausea and vomiting: - Upon exam there is vomit in his bag, pale appearance - curled up in the position - States that he has been nauseated ever since being discharged this morning Plan: Start scheduled Reglan, IV fluids, treat nausea with Zofran, CL diet (2) Gastroparesis: -Related to DM - recurrent -causing intractable N/V Plan: Start schedule Reglan, CL diet, advance diet as tolerated, monitor for improvement (3)Neurogenic bladder: -Related to DM - frequent urinary retention - MUDDs and UA have yet to be obtained Plan: Bladder scans per shift, including post-void residuals. Straight cath for greater than 500 mL, await urine tests (4) Lumbar contusion: - fell while helping his cousin lift a bed frame - landed against the nearby wall, then fell to the floor - Tried to lye down for about an hour, then called EMS - Imaging confirmed no fractures - Tenderness noted on exam Plan: Teaching given, Robaxin x1 given prior to discharge, prescription sent to [facility] (5) Fall: - Patient denies hitting his head, previously has hit his head - Left mid-lower back injury as a consequence of this fall Plan: Continue to monitor, seemed to be ambulating well prior to discharge (6) Diabetes type 1, uncontrolled: - A1C was elevated at 12.4% today - Admitting glucose was 248 Plan: Continue Lantus, SSI, and CL diet since having N/V (7) Noncompliance with diabetes treatment: - Several years of non- compliance resulting in multiple hospital stays/ ED visits Plan: Continue to encourage compliance to reduce hospital stays (8) Depression: - Prescribed Prozac at home - Patient states that he has not taken this medication for the past 2 weeks Plan: Continue to encourage use of Prozac and outpatient psycho therapy (9) Peripheral neuropathy: - No changes in this condition as a result of his fall - States that he no longer takes the gabapentin at home Plan: Continue to monitor (10) Polysubstance abuse: - Last admission was + for meth and amphetamines - MUDDs was not collected this morning, awaiting a new sample Plan: Continue to encourage cessation, ensure patient fulfills entire hospital stay as recommended by medical team * DVT prophylaxis with SCDs, Lovenox, Code status confirmed as FULL code. Core Measures - Anticipated LOS I expect patient to be DC'd or transferred within 96 hours.: Yes - DVT/VTE - Prophylaxis VTE/DVT Device ordered at admit?: Yes VTE/DVT Prophylaxis med ordered at admit?: Yes - Stroke - Rehab Assessment Rehab services assessment to be ordered?: No Not Ordered - Medical Reason: Contraindicated - AMI - Statin at Admit Aspirin Prescribed on Admit: Yes
[2019-01-26] MEDS ORDERED: LIDOCAINE 2% URO-JET 5 ML SYRINGE UR PRN (16:39)
[2019-01-26] MEDS ORDERED: METHOCARBAMOL 500 MG TABLET PO PRN (16:40)
[2019-01-26] MEDS ORDERED: SODIUM CHLORIDE 0.9% 1,000 ML IV SCH (17:00)
[2019-01-26 17:23] LABS: BILIRUBIN,URINE NEGATIVE (NEGATIVE); GLUCOSE, URINE (UA) >=1000 mg/dL (NEGATIVE); KETONES,URINE (UA) 40 mg/dL (NEGATIVE); LEUKOCYTE ESTERASE, URINE NEGATIVE (NEGATIVE); NITRITE,URINE NEGATIVE (NEGATIVE); OCCULT BLOOD,URINE NEGATIVE (NEGATIVE); PROTEIN,URINE TRACE mg/dL (NEGATIVE); UROBILINOGEN,URINE 0.2 (NORMAL) E.U./dL (NORMAL)
[2019-01-26 17:26] LABS: CLARITY,URINE CLEAR (CLEAR); MUDS CUTOFF CONCENTRATIONS CUTOFF CONC BELOW:
[2019-01-26 17:32] LABS: AMPHETAMINE SCREEN,URINE NEGATIVE (NEGATIVE); BENZODIAZEPINES SCREEN, URINE NEGATIVE (NEGATIVE); COCAINE SCREEN URINE NEGATIVE (NEGATIVE); METHADONE SCREEN, URINE NEGATIVE (NEGATIVE); METHAMPHETAMINES SCREEN, URINE NEGATIVE (NEGATIVE); OPIATE SCREEN, URINE POSITIVE (NEGATIVE); OXYCODONE SCREEN, URINE NEGATIVE (NEGATIVE); PROPOXYPHENE SCREEN, URINE NEGATIVE (NEGATIVE); TRICYCLIC ANTIDEPRESSANT,URINE NEGATIVE (NEGATIVE)
[2019-01-26] MEDS: SODIUM CHLORIDE FLUSH 0.9% 10 ML SYRINGE IVP PRN ×2 (17:34→21:16)
[2019-01-26] MEDS: PANTOPRAZOLE 40 MG VIAL IVP SCH (17:34)
[2019-01-26] MEDS: METOCLOPRAMIDE 10 MG/2 ML VIAL IVP SCH (17:34)
[2019-01-26] MEDS: INSULIN ASPART 300 UNIT/3 ML PEN SUBQ SCH ×2 (17:35→21:17)
[2019-01-26] MEDS: SODIUM CHLORIDE FLUSH 0.9% 10 ML SYRINGE IVP SCH (17:36)
[2019-01-26] MEDS ORDERED: INSULIN GLARGINE 300 UNIT/3 ML PEN SUBQ SCH (21:00)
[2019-01-26] MEDS ORDERED: MONTELUKAST 10 MG TABLET PO SCH (21:00)
[2019-01-26] MEDS: diphenhydrAMINE INJ 50 MG/ML VIAL IVP PRN (21:16)
[2019-01-26] MEDS: SODIUM CHLORIDE 0.9% 1,000 ML IV SCH (22:12)
[2019-01-26] MEDS ORDERED: KETOROLAC 30 MG/ML VIAL IVP PRN (22:44)
[2019-01-26] MEDS ORDERED: LORATADINE 10 MG TABLET PO SCH (22:44)
[2019-01-27] MEDS: METOCLOPRAMIDE 10 MG/2 ML VIAL IVP SCH ×2 (00:14→06:35)
[2019-01-27] MEDS: SODIUM CHLORIDE FLUSH 0.9% 10 ML SYRINGE IVP SCH ×2 (00:14→06:35)
[2019-01-27] MEDS: SODIUM CHLORIDE 0.9% 1,000 ML IV SCH ×2 (01:20→07:43)
[2019-01-27] MEDS: diphenhydrAMINE INJ 50 MG/ML VIAL IVP PRN ×2 (03:43→10:19)
[2019-01-27 05:14] LABS: BASOPHILS % (AUTO) 0.3 %; EOSINOPHILS % (AUTO) 0.2 %; HGB - HEMOGLOBIN 10.5 g/dL (14.0-18.0); LYMPHOCYTES # (AUTO) 1.7 10^3/uL (1.5-3.5); LYMPHOCYTES % (AUTO) 29.2 %; MEAN CORPUSCULAR HEMOGLOBIN 28.2 pg (27.0-31.0); MEAN CORPUSCULAR HGB CONC 33.3 g/dL (32.0-36.0); MEAN CORPUSCULAR VOLUME 84.7 fL (80.0-94.0); MEAN PLATELET VOLUME 6.5 fL (7.4-11.4); MONOCYTES # (AUTO) 0.3 10^3/uL (0.0-1.0); MONOCYTES % (AUTO) 4.3 %; NEUTROPHILS # (AUTO) 3.9 10^3/uL (1.5-6.6); PLT - PLATELET COUNT 519 10^3/uL (130-450); RED BLOOD COUNT 3.73 10^6/uL (4.70-6.10); RED CELL DISTRIBUTION WIDTH 13.1 % (12.0-15.0); WHITE BLOOD COUNT 5.9 x10^3/uL (4.8-10.8)
[2019-01-27 05:17] LABS: ALBUMIN 2.7 g/dL (3.2-5.5); ALBUMIN/GLOBULIN RATIO 0.7 (1.0-2.2); ALKALINE PHOSPHATASE 66 IU/L (42-121); ALT ALANINE AMINOTRANSFERASE < 10 IU/L (10-60); AST ASPARTATE AMINOTRANSFERASE 10 IU/L (10-42); BILIRUBIN,TOTAL 0.6 mg/dL (0.2-1.0); BUN - BLOOD UREA NITROGEN 12 mg/dL (6-20); CALCIUM 8.5 mg/dL (8.5-10.3); CARBON DIOXIDE - CO2 24 mmol/L (21-32); CHLORIDE 105 mmol/L (101-111); CREATININE 0.3 mg/dL (0.6-1.2); GFR - MDRD 382 (>89); GLUCOSE 91 mg/dL (70-100); MAGNESIUM 1.8 mg/dL (1.7-2.8); SODIUM 141 mmol/L (135-145); TOTAL PROTEIN 6.5 g/dL (6.7-8.2)
[2019-01-27] MEDS: PANTOPRAZOLE 40 MG VIAL IVP SCH (06:35)
[2019-01-27] MEDS: SODIUM CHLORIDE FLUSH 0.9% 10 ML SYRINGE IVP PRN (06:35)
[2019-01-27 08:05] VITALS: BP 132/83
[2019-01-27] MEDS: INSULIN ASPART 300 UNIT/3 ML PEN SUBQ SCH ×2 (08:37→11:52)
[2019-01-27] MEDS ORDERED: POLYETHYLENE GLYCOL 3350 17 GM PACKET PO SCH (09:00)
[2019-01-27] MEDS ORDERED: INSULIN GLARGINE 300 UNIT/3 ML PEN SUBQ SCH ×2 (09:00→10:00)
[2019-01-27] MEDS ORDERED: FLUoxetine 10 MG CAPSULE PO SCH (09:30)
[2019-01-27] MEDS ORDERED: POTASSIUM CHLORIDE INJ 40 MEQ in DEXTROSE 5%-0.45% NACL 980 ML IV SCH (10:00)
[2019-01-27] MEDS ORDERED: MAGNESIUM OXIDE 400 MG TABLET PO SCH (10:00)
[2019-01-27] MEDS ORDERED: POTASSIUM CHLOR 10 MEQ/100 ML 10 MEQ/100 ML BAG IV SCH (10:00)
[2019-01-27] MEDS ORDERED: METOCLOPRAMIDE 10 MG TABLET PO SCH (11:00)
--- NOTE | 2019-01-27 11:43 | Discharge Plan ---
Discharge Plan Disposition: Home, Self Care Condition: Good Prescriptions: Insulin Glargine [Lantus Solostar] 20 unit SUBQ DAILY #1 pen Magnesium Oxide [Mag Ox] 400 mg PO DAILYWM #1 tablet Metoclopramide [Reglan] 10 mg PO ACHS #90 tablet Diet: Diabetic Activity Restrictions: Activity as Tolerated Shower Restrictions: No Additional Instructions or Follow Up instructions: You were admitted for nausea and vomiting that has resolved today. Please continue the Reglan before meals and at night for the next 15 days to prevent more episodes. Please cut your Lantus dose in half, since your blood sugars were low this morning. Please see your PCP within one week and your medical staff assistant. Please attempt to get into your PCP office first, if you are feeling like coming into the ED. Follow-Up Care: [facility] - Diabetes Ed No Smoking: If you smoke, Please STOP! Call for help. Follow-up with: Ailin Kumar DNP [Primary Care Provider] -
--- NOTE | 2019-01-27 11:46 | DISCHARGE SUMMARY ---
Discharge Summary Admit Date: 01/26/19 Discharge Date: 01/27/19 Discharging Provider: JUAN Estevez Primary Care Provider: Ailin Kumar Code Status: Attempt Resuscitation Condition at Discharge: Good Discharge Disposition: 01 Home, Self Care - DIAGNOSES Admission Diagnoses: Nausea with vomiting, unspecified (R11.2) Gastroparesis (K31.84) Neuromuscular dysfunction of bladder, unspecified (N31.9) Contusion of lower back and pelvis, initial encounter (S30.0XXA) Unspecified fall, initial encounter (W19.XXXA) Type 1 diabetes mellitus with hyperglycemia (E10.65) Patient's noncompliance w oth medical treatment and regimen (Z91.19) Major depressive disorder, single episode, unspecified (F32.9) Polyneuropathy, unspecified (G62.9) Other psychoactive substance abuse, uncomplicated (F19.10) Discharge Diagnoses with Status of Each Condition: Intractable nausea and vomiting (R11.2) resolved Gastroparesis (K31.84) chronic, sent Reglan to the pharmacy Diabetes mellitus type 1, uncontrolled (E10.65) chronic, continues to be noncompliant Polysubstance abuse (F19.10) chronic, + marijuana and opioids on this admission Depression (F32.9) chronic, encouraged to take the Prozac at home Peripheral neuropathy (G62.9) chronic, stable Neurogenic bladder (N31.9) chronic, stable Fall (W19.XXXA) chronic, stable Medical non-compliance (Z91.19) chronic, stable Lumbar contusion (S30.0XXA) stable, no complaints, still has Robaxin at home - HPI History of Present Illness: Thomas Kearney is an unfortunate 18-year old male who is well known to this hospital and has a past medical history of poorly controlled diabetes mellitus type 1, poor social support, protein calorie malnutrition, polysubstance abuse, right eye cellulitis, insomnia, diabetic peripheral neuropathy, gastroparesis, neurogenic bladder, urinary retention, medical non-compliance, passive suicidal ideation, major depressive disorder, GERD, sepsis requiring IV therapy, MRSA, GI bleeding, and chronic abdominal pain. The patient was brought in via EMS early this AM after sustaining a fall while helping his cousin lift a bed frame in which he struck his left mid-lower back on the wall, and fell to the floor. He states that he tried to lie down for about an hour, but his back pain became worse, so EMS was called. Once in the ED, he had his usual nausea, vomiting, and abdominal pain. A lumbar spinal CT without contrast showed no acute fractures. He was admitted to the Hospitalist service and after arriving to the nursing floor and after his narcotics wore off, he was ready to return home as the Hospitalist plan of care does not allow for narcotic or benzo administration. He was given one dose of Robaxin, and a prescriptions was sent to [facility] to be taken at home. He arrived via wheelchair back to the ED ~ 2 hours later from the time of discharge with complaints of uncontrolled nausea, vomiting, and continued low back pain. Labs were very similar to earlier, and showed a sodium of 138, p otassium of 3.3, chloride of 96, carbon dioxide of 26, anion gap of 16, BUN 15, creatinine of 0.5, GFR 212, glucose of 248, A1C of 12.4%, WBC count of 8.0, hgb 12.5, hct 38.0, platelets 627, normal blood gases, and no other lab abnormalities. He denied hematuria prior to coming in, syncope, headaches, chest pain, diarrhea, a rash, or a new cough. He is agreeable to stay at least one night for further symptom management with his main complicating chronic illness being DM type 1 making it more detrimental with not eating or drinking. He is admitted for an observation stay, and a MUD[facility] drug screen is ordered. - HOSPITAL COURSE Hospital Course: Thomas stayed one night as planned, and by morning of discharge his symptoms were resolved. He had some asymptomatic hypoglycemia, so his Lantus home dose was adjusted from 40 units daily to just 20 units daily. - ALLERGIES Allergies/Adverse Reactions: Allergies Allergy/AdvReac Type Severity Reaction Status Date / Time No Known Drug Allergies Allergy Verified 01/26/19 11:46 - MEDICATIONS Home Medications: Ambulatory Orders Medication Instructions Recorded Confirmed Insulin Aspart [NovoLOG] 0 - 7 units SUBQ TIDWM PRN 01/08/19 01/26/19 Fluoxetine HCl [Prozac] 40 mg PO DAILY 01/26/19 01/26/19 Methocarbamol [Robaxin] 500 mg PO Q6H #30 tablet 01/26/19 01/26/19 Insulin Glargine [Lantus Solostar] 20 unit SUBQ DAILY #1 pen 01/27/19 Magnesium Oxide [Mag Ox] 400 mg PO DAILYWM #1 tablet 01/27/19 Metoclopramide [Reglan] 10 mg PO ACHS #90 tablet 01/27/19 - PHYSICAL EXAM AT DISCHARGE General Appearance: positive: No acute distress, Alert Eyes Bilateral: positive: PERRL ENT: positive: ENT inspection nml, Pharynx nml, No signs of dehydration Neck: positive: Thyroid nml, No JVD, Trachea midline Respiratory: positive: Chest non-tender, No respiratory distress, Breath sounds nml Cardiovascular: positive: Regular rate & rhythm, No gallop, Systolic murmur Peripheral Pulses: positive: 2+ Abdomen: positive: Non-tender, Nml bowel sounds Back: positive: Nml inspection Skin: positive: Color nml, No rash, Warm, Dry Extremities: positive: Non-tender, Full ROM, Nml appearance, No pedal edema Neurologic/Psychiatric: positive: Oriented x3, CN's nml (2-12), Motor nml, Sensation nml, Depressed mood/affect Reflexes: Bicep (R): 3+, Bicep (L): 3+ - LABS Result Diagrams: 01/27/19 04:30 01/27/19 04:30 - TIME SPENT Time Spent in Discharge (Minutes): 45
== END 2019-01-27 12:25 | disposition home or self-care (01) ==
LOC: ED 11:33 → MS3 16:03
PROVIDERS: ADMIT Nurse Practitioner; ATTEND Nurse Practitioner
DX: E10.43 Type 1 diabetes mellitus with diabetic autonomic (poly)neuropathy (principal); K31.84 Gastroparesis; E10.10 Type 1 diabetes mellitus with ketoacidosis without coma; Z79.4 Long term (current) use of insulin; F19.10 Other psychoactive substance abuse, uncomplicated; N31.9 Neuromuscular dysfunction of bladder, unspecified; Z91.14 Patient's other noncompliance with medication regimen; S30.0XXA Contusion of lower back and pelvis, initial encounter; W18.39XA Other fall on same level, initial encounter; F15.14 Other stimulant abuse with stimulant-induced mood disorder; F15.180 Other stimulant abuse with stimulant-induced anxiety disorder; F12.180 Cannabis abuse with cannabis-induced anxiety disorder; F12.188 Cannabis abuse with other cannabis-induced disorder; F19.14 Other psychoactive substance abuse with psychoactive substance-induced mood disorder; R30.0 Dysuria; R33.9 Retention of urine, unspecified; N28.9 Disorder of kidney and ureter, unspecified; F17.210 Nicotine dependence, cigarettes, uncomplicated; E10.51 Type 1 diabetes mellitus with diabetic peripheral angiopathy without gangrene
CPT/HCPCS: 36415; 51701; 72131; 80053; 80306; 81003; 82009; 82803; 83036; 83690; 83735; 85025; 96361; 96365; 96366; 96367; 96374; 96375; 96376; 99284; A9270; G0378; J1170; J1200; J1815; J2765; J7040; 81001; 87086